=== PATIENT | male | born 1955 | race Caucasian/White ===

== ENCOUNTER 2017-10-23 10:00 | Outpatient (RCR) | payer OTHER, SELFPAY ==
--- NOTE | 2017-09-11 13:47 | HP.PTEVAL_ITS ---
Patient's Visit Information TOMMY JOSE is a 62 year old M referred to Physical Therapy by Colton BARDALES with a diagnosis of lumbago with sciatica. Date of Evaluation: 09/11/17 Physical Therapist: Marilynn Christie - Visit Plan Frequency: 3x /Week Duration: 4 Weeks Plan: Ask Dr Adams for Why Weight program after cardiac rehab. 3X/ week for 4 weeks to work on LB stretching, LE stretching including foam rolling, core stability and postural exercises with body mechanics working on extension principle. with HEP and modalitites PRN - Subjective Subjective: Pt reports that he has a lot of lower muscle back pain and the pain goes down butt cheek and nothing below the knee to the Quad (somedays R side and somedays L side). It usually happens upon exhertion. If he has to carry water from inside to outside he can barely get back into the house. Alot of time when driving or with sitting. He has N&T into the L foot but could be from a stroke. L paralyzed on L side due to strokein September of last year. He has DM with neuropathy. He had a light SD in September ... 2 stents (since February) , FM. He can sit for 30 min with constantly switches positions. No MRI. Dr Adams wanted to do PT and PRednizone....the prednizone is knocking the edge off (still on the prednzone and starting to step down with it. Only sleeps 4-6 hours of sleep because of pain. Pt thinks that his back pain is from non-use. He used to do a lot of things but the years events made me more sedentary. Uses a rail on the steps and has a hard time. Balance is terrible due to the nueropathy...he does lose his balance. He tries to walk on a lot of uneven ground. His activities throughout the day are mostly sitting down. 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 His heart and does not feel good. He takes the dogs out and walks.... he can walk but stops and goes,...gets spasms in back from walking. He wants o go through cardiac rehab. - Pain back pain Pain Intensity (Out of 10): 4 - Objective Gait: walks with decreaed L push off and decreased stacne time on the L. FGA: 17. LE MMT: R hip flex 4+/5 and L 4/5, L hip abd 4-/5 and R 4+/5, knee ext R 4/5 and L 4-/5, knee flex R 4/5 and L 4-/5. Pt struggles with toe raise on the L. Trunk AROM: flexion 75%, ext 10%, SB B 50%, Rot B 50%. -SLR. tight B HS, Piriformis and Quad B - Balance Scores Functional Gait Assessment Score: 17 % Disability: 43.3400 - Goals Goal 1:: I HEP Goal Time Frame: 4-6 Weeks Goal 2:: Decrease LBP to 1/10 with walking or carrying something Goal Time Frame: 4-6 Weeks Goal 3:: Be able to sit for 15-30 min with no back pain Goal Time Frame: 4-6 Weeks Goal 4:: Increase LE flexability of the HS, piriformis, gastroc and Quad Goal Time Frame: 4-6 Weeks Goal 5:: Increase FGA by 5 points to decrease fall risk (17 at time of the eval) . Goal Time Frame: 4-6 Weeks - Rehabilitation Potential Rehabilitation Potential: Good - Anticipated Interventions Patient/Client Instruction: Educate patient on: Condition, Plan of Care For the Purpose of:: To decrease pain, To increase ROM, To improve nutrient delivery to tissue, To improve muscle performance and motor function, To improve ability to perform ADL's, To increase tolerance to activity/condition/ position, To improve performance and independence with ADL's, To improve ability of physical actions for home/community/work/leisure, To improve gait and locomotor functions, To improve health of tissue, To decrease soft tissue restriction, To increase flexibility/ROM Therapeutic Exercise to Include: Strength training, Balance training, Flexibilty training, Gait and locomotor training, Passive ROM, Active ROM, Dynamic Lumbar Stabilization, Anitha Exercises For the Purpose of:: To decrease pain, To increase ROM, To improve nutrient delivery to tissue, To increase oxygenation perfusion, To improve muscle performance and motor function, To improve ability to perform ADL's, To increase tolerance to activity/condition/position, To improve health of tissue, To decrease soft tissue restriction, To increase flexibility/ROM Functional Training to Include: Gait training For the Purpose of:: To improve gait and locomotor functions, To improve safety with gait Manual Therapy Techniques to Include: Mobilization, Passive ROM, Soft tissue mobilization For the Purpose of:: To improve muscle performance and motor function, To increase tolerance to activity/condition/position, To improve health of tissue, To decrease soft tissue restriction, To increase flexibility/ROM Thank you for the opportunity to evaluate your patient. For Medicare and Medicare HMO plans, please review the plan of care and approve it. It will need to be FAXED BACK to us at [phone] for Medicare purposes. Please let me know if there are questions or concerns regarding this plan of care. Physician Signature: Date:
--- NOTE | 2017-10-23 11:02 | HP.PTEVAL_ITS ---
Patient's Visit Information TOMMY JOSE is a 62 year old M referred to Physical Therapy by Colton Adams with a diagnosis of lumbago with sciatica. Date of Evaluation: 09/11/17 Physical Therapist: Marilynn Christie - Visit Plan Frequency: 3x /Week Duration: 4 Weeks Plan: Pt to be seen in our clinic for 10 visits and continues to improve on pain and flexability unless he does too much walking for which the pain is lessoned with flexion or bending exercises. At this point the pt will continue to work at home with stretching and will resturn back to Dr Adams for follow up. At this point I feel a lot of the pts problems could be coming from possible stenosis. He loves to walk and he is unable to do that at this point. DC PT - Subjective Subjective: Pt reports that he has a lot of lower muscle back pain and the pain goes down butt cheek and nothing below the knee to the Quad (somedays R side and somedays L side). It usually happens upon exhertion. If he has to carry water from inside to outside he can barely get back into the house. Alot of time when driving or with sitting. He has N&T into the L foot but could be from a stroke. L paralyzed on L side due to strokein September of last year. He has DM with neuropathy. He had a light AK in September ... 2 stents (since February) , FM. He can sit for 30 min with constantly switches positions. No MRI. Dr Adams wanted to do PT and PRednizone....the prednizone is knocking the edge off (still on the prednzone and starting to step down with it. Only sleeps 4-6 hours of sleep because of pain. Pt thinks that his back pain is from non-use. He used to do a lot of things but the years events made me more sedentary. Uses a rail on the steps and has a hard time. Balance is terrible due to the nueropathy...he does lose his balance. He tries to walk on a lot of uneven ground. His activities throughout the day are mostly sitting down. 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 His heart and does not feel good. He takes the dogs out and walks.... he can walk but stops and goes,...gets spasms in back from walking. He wants o go through cardiac rehab. - Pain back pain Pain Intensity (Out of 10): 10 Comment: TIGHT Fibro pain Pain Intensity (Out of 10): 10 - Objective Gait: walks with decreaed L push off and decreased stacne time on the L. FGA: 17. LE MMT: R hip flex 4+/5 and L 4/5, L hip abd 4-/5 and R 4+/5, knee ext R 4/5 and L 4-/5, knee flex R 4/5 and L 4-/5. Pt struggles with toe raise on the L. Trunk AROM: flexion 75%, ext 10%, SB B 50%, Rot B 50%. -SLR. tight B HS, Piriformis and Quad B - Balance Scores Functional Gait Assessment Score: 22 % Disability: 26.6700 - Goals Goal 1:: I HEP Goal Time Frame: 4-6 Weeks Goal 2:: Decrease LBP to 1/10 with walking or carrying something Goal Time Frame: 4-6 Weeks Goal 3:: Be able to sit for 15-30 min with no back pain Goal Time Frame: 4-6 Weeks Goal 4:: Increase LE flexability of the HS, piriformis, gastroc and Quad Goal Time Frame: 4-6 Weeks Goal 5:: Increase FGA by 5 points to decrease fall risk (17 at time of the eval) . Goal Time Frame: 4-6 Weeks - Rehabilitation Potential Rehabilitation Potential: Good - Anticipated Interventions Patient/Client Instruction: Educate patient on: Condition, Plan of Care For the Purpose of:: To decrease pain, To increase ROM, To improve nutrient delivery to tissue, To improve muscle performance and motor function, To improve ability to perform ADL's, To increase tolerance to activity/condition/ position, To improve performance and independence with ADL's, To improve ability of physical actions for home/community/work/leisure, To improve gait and locomotor functions, To improve health of tissue, To decrease soft tissue restriction, To increase flexibility/ROM Therapeutic Exercise to Include: Strength training, Balance training, Flexibilty training, Gait and locomotor training, Passive ROM, Active ROM, Dynamic Lumbar Stabilization, Anitha Exercises For the Purpose of:: To decrease pain, To increase ROM, To improve nutrient delivery to tissue, To increase oxygenation perfusion, To improve muscle performance and motor function, To improve ability to perform ADL's, To increase tolerance to activity/condition/position, To improve health of tissue, To decrease soft tissue restriction, To increase flexibility/ROM Functional Training to Include: Gait training For the Purpose of:: To improve gait and locomotor functions, To improve safety with gait Manual Therapy Techniques to Include: Mobilization, Passive ROM, Soft tissue mobilization For the Purpose of:: To improve muscle performance and motor function, To increase tolerance to activity/condition/position, To improve health of tissue, To decrease soft tissue restriction, To increase flexibility/ROM Thank you for the opportunity to evaluate your patient. For Medicare and Medicare HMO plans, please review the plan of care and approve it. It will need to be FAXED BACK to us at [phone] for Medicare purposes. Please let me know if there are questions or concerns regarding this plan of care. Physician Signature: Date:
--- NOTE | 2017-12-08 11:01 | HP.PTDCNRP_ITS ---
HP - Discharge Summary (1) - Patient Information TOMMY JOSE was seen in my office for initial evaluation on 09/11/17. The following Plan of Care was established for this patient: Initial Frequency: 3x /Week Initial Duration: 4 Weeks - Anticipated Interventions Patient/Client Instruction: Educate patient on: Condition, Plan of Care For the Purpose of:: To decrease pain, To increase ROM, To improve nutrient delivery to tissue, To improve muscle performance and motor function, To improve ability to perform ADL's, To increase tolerance to activity/condition/ position, To improve performance and independence with ADL's, To improve ability of physical actions for home/community/work/leisure, To improve gait and locomotor functions, To improve health of tissue, To decrease soft tissue restriction, To increase flexibility/ROM Therapeutic Exercise to Include: Strength training, Balance training, Flexibilty training, Gait and locomotor training, Passive ROM, Active ROM, Dynamic Lumbar Stabilization, Anitha Exercises For the Purpose of:: To decrease pain, To increase ROM, To improve nutrient delivery to tissue, To increase oxygenation perfusion, To improve muscle performance and motor function, To improve ability to perform ADL's, To increase tolerance to activity/condition/position, To improve health of tissue, To decrease soft tissue restriction, To increase flexibility/ROM Functional Training to Include: Gait training For the Purpose of:: To improve gait and locomotor functions, To improve safety with gait Manual Therapy Techniques to Include: Mobilization, Passive ROM, Soft tissue mobilization For the Purpose of:: To improve muscle performance and motor function, To increase tolerance to activity/condition/position, To improve health of tissue, To decrease soft tissue restriction, To increase flexibility/ROM This patient was last seen in our office 10/23/17. Pertinent comments regarding their Physical therapy will appear below: DC PT as pt did not schedule additional PT visits. At this point I will be discontinuing this patient from physical therapy. I would be happy to see this patient again in the future if found appropriate by the physician. Thank you! Marilynn Christie
== END 2017-10-23 19:00 | disposition home or self-care (01) ==
LOC: PT 10:00
PROVIDERS: Family Provider Family Medicine; PCP Family Medicine; Visit Provider Family Medicine
DX: M54.40 Lumbago with sciatica, unspecified side (principal)
CPT/HCPCS: 97110; 97161; 97530

== ENCOUNTER → 2017-11-03 15:45 | Outpatient (CLI) | payer OTHER, SELFPAY ==
--- NOTE | 2017-11-03 15:52 | MRI_ITS ---
STUDY: MRI LUMBAR SPINE WITHOUT CONTRAST REASON FOR EXAM: Male, 62 years old. Low back pain and radiculopathy. TECHNIQUE: Standardized fat and water weighted pulse sequences were obtained in the sagittal and axial planes. COMPARISON: None FINDINGS: T12-L1: Normal endplates. Normal disc height, signal and morphology. Normal bilateral facet joints. Normal central canal and bilateral lateral recesses. Normal bilateral intervertebral neural foramina. Normal lumbar lordosis. There is no substantial scoliosis. Normal conus medullaris that terminates at the T12-L1 level. L1-2: There is mild annular disk bulge and osteophyte complex. There is mild degenerative arthropathy of the facet joints. Bilateral neuroforamina are narrowed without MR evidence for nerve impingement. There is no significant central canal stenosis. L2-3: There is annular disc bulge and osteophyte complex. There is mild degenerative arthropathy of the facet joints and mild thickening of ligamentum flavum. There is neural foraminal narrowing, greater on the left than the right with questionable impingement of the left L2 nerve root at the neural foramen. L3-4: There is a broad central disc protrusion. There is moderate degenerative arthropathy of facet joints. There is mild central acquired canal stenosis. Neural foramina are bilaterally narrowed without definite nerve impingement. There is loss of normal T2 hyperintensity within the disc consistent with degenerative disc disease. L4-5: There is mild annular disk bulge and osteophyte complex. There is a focal left foraminal disc protrusion with moderate left-sided neural foraminal narrowing. The right neural foramen is mildly narrowed. There is mild degenerative arthropathy of the facet joints. There is mild central canal stenosis. L5-S1: There is mild annular disk bulge and osteophyte complex. There is mild degenerative arthropathy of the facet joints. Bilateral neuroforamina are narrowed without MR evidence for nerve impingement. There is no significant central canal stenosis. Normal visualized sacral ala. Normal visualized paraspinous soft tissue structures. MRI/Spine Lumbar (Routine) IMPRESSION: Multilevel degenerative disc disease and degenerative arthropathy lumbar spine with acquired canal stenosis, neural foraminal narrowing and potential nerve impingement as described. Electronically Signed: Shanae dAams MD at 9:39 EDT , Service support ,
== END ==
PROVIDERS: Family Provider Family Medicine; PCP Family Medicine; Visit Provider Family Medicine
DX: M51.17 Intervertebral disc disorders with radiculopathy, lumbosacral region (principal); M48.061 Spinal stenosis, lumbar region without neurogenic claudication
CPT/HCPCS: 72148

== ENCOUNTER → 2019-04-18 18:15 | Outpatient (CLI) | payer OTHER, SELFPAY ==
[2017-09-10 11:14] VITALS: BMI 33.5
== END ==
PROVIDERS: Family Provider Family Medicine; PCP Family Medicine; Referring Provider Podiatrist; Visit Provider Podiatrist
DX: L03.031 Cellulitis of right toe (principal)
CPT/HCPCS: 87070; 87075; 87077; 87186; 87205

== ENCOUNTER → 2019-04-22 12:46 | Outpatient (CLI) | payer OTHER, SELFPAY ==
[2017-09-10 11:14] VITALS: BMI 33.5
--- NOTE | 2019-04-22 12:47 | ART_ITS ---
Reason For Study: PVD Procedure A bilateral lower extremity continuous wave Doppler with analog waveform analysis,segmental pressures,and ankle brachial indexes without exercise. Left Segmental Pressures Left brachial= 128mmHg. Left thigh = >254mmHg. Left calf = 119mmHg. Left posterior tibial artery = 126mmHg. Left dorsalis pedis artery = 130mmHg. Left digit = 84 mmHg. The left dorsalis pedis waveforms are triphasic. The left posterior tibial artery waveforms are biphasic. Right Segmental Pressures Right brachial= 134mmHg. Right posterior tibial artery = 127mmHg. Right dorsalis pedis artery = 155mmHg. Right digit = 94 mmHg. The right dorsalis pedis waveforms are triphasic. The right posterior tibial artery waveforms are biphasic. Indices The right ankle brachial index by the dorsalis pedis is 1.16. The right ankle brachial index by the posterior tibial artery is 0.95. The right digital-brachial index is 0.70. The left ankle brachial index by the dorsalis pedis is 0.97. The left ankle brachial index by the posterior tibial artery is 0.94. The left digital-brachial index is 0.63. Interpretation Summary Biphasic and triphasic Doppler waveforms are noted at ankle level bilaterally. Pulse-volume recordings are normal at all levels bilaterally, but for left digital level. Resting ankle-brachial indices are normal bilaterally. The right digital-brachial index is low-normal. The left digital- brachial index is mildly diminished. Arterial flow appears to be normal at ankle and digital level on the right, and at ankle level on the left. There appears to be mild, distal, small-vessel arterial occlusive disease at digital level on the left. Ordering Physician: Lupillo Alicea Referring Physician: Colton Sánchez Performed By: Sophia Matta RVT
== END ==
LOC: CVS 12:46
PROVIDERS: Family Provider Family Medicine; PCP Family Medicine; Referring Provider Podiatrist; Visit Provider Podiatrist
DX: I73.9 Peripheral vascular disease, unspecified (principal)
CPT/HCPCS: 93923

== ENCOUNTER → 2019-05-02 09:25 | Outpatient (CLI) | payer OTHER, SELFPAY ==
[2017-09-10 11:14] VITALS: BMI 33.5
[2019-05-02 10:28] LABS: Anion Gap 6 (5-15); BUN 15 mg/dL (7-18); BUN/Creat Ratio 12.9 RATIO (10-20); Chloride 102 mmol/L (98-107); Cholesterol 120 mg/dL (200); Creatinine, Serum 1.16 mg/dL (0.70-1.30); EST Glomerular Filtration Rate 68 mL/min (>60); Est Glom Filt Rate - Afr Amer 82 mL/min (>60); Glucose 320 mg/dL (74-106); High Density Lipoprotein 30 mg/dL; PSA,Total - Annual Screen 0.37 ng/mL (0.00-4.00); Potassium 4.2 mmol/L (3.5-5.1); Sodium Level 137 mmol/L (136-145); Triglycerides 166 mg/dL; Very Low Density Lipoprotein 33 mg/dL (5-40)
== END ==
PROVIDERS: Family Medicine; Family Provider Family Medicine; PCP Family Medicine; Referring Provider Family Medicine; Visit Provider Family Medicine
DX: E78.5 Hyperlipidemia, unspecified (principal); E11.8 Type 2 diabetes mellitus with unspecified complications; Z12.5 Encounter for screening for malignant neoplasm of prostate
CPT/HCPCS: 36415; 80048; 80061; 83036; 84153; G0103

== ENCOUNTER → 2019-11-20 10:14 | Outpatient (CLI) | payer OTHER, SELFPAY ==
[2017-09-10 11:14] VITALS: BMI 33.5
--- NOTE | 2019-11-20 10:21 | NM_ITS ---
CLINICAL: 64 year old male diabetic with history of postprandial abdominal pain and bloating. SEMI-SOLID PHASE 99m Tc SULFUR COLLOID GASTRIC EMPTYING STUDY COMPARISON: None available FINDINGS: The patient was administered 1.1 mCi of 99m Tc sulfur colloid mixed with oatmeal and consumed per os. Image acquisitions in the anterior-posterior projections for a total of 60 minutes. There is prompt visualization of the stomach. There is no gastroesophageal reflux identified. First order kinetics are maintained throughout the duration of the acquisitions. The T1/2 linear fit was calculated to be 64.53 minutes, (Normal: 12-56 minutes). NM/Gastric Emptying Study IMPRESSION: 1. ABNORMAL 99m Tc sulfur colloid semi-solid phase (oatmeal) gastric emptying imaging examination. A. There is delayed semi-solid phase gastric emptying compared to normal controls with maintained first order kinetics throughout all components of the examination. (Prudencio et al, J Nucl Med Tech 38: 186, 2010). Electronically Signed: Gabriel Albright DO at 19:04 EDT Tel , Service support ,
--- OUTSIDE RECORDS SUMMARY | 2020-04-21 09:46 | XMS RPT_ITS | CCD ---
:1955 External Reference #:[id number] Author Organization [facility] Care Team Providers Name Role Phone Aysha HUGGINS, Jj Unavailable Donovan ROSARIO, Yoav Unavailable Unavailable Yoav Man LPN Unavailable Unavailable Deana LOUIE, A Unavailable Unavailable Allergies Reported Allergen Reaction(s) Severity Date of Onset Location atorvastatin Muscle aches Critical, Critical 01-12-2011 - - [facility] 02-18-2013 - ([id number]) nabumetone GI upset Critical, Critical 01-12-2011 - - [facility] 02-18-2013 - (94998) NKDA Mild, Mild 05-28-2013 - [facility] ([id number]) Medications Medication Name Sig Date Prescriber Location Acetaminophen / VICODIN 5-500 MG TABS 01-12-2011 [facility] HYDROcodone One tablet by mouth Group (4 [id number]) three times daily HYDROCODONE-ACETAMINO PHEN [id number] Carlita Carmona VICODIN 5-500 MG TABS One tablet by 01-12-2011 - 06-24-2014 [facility] mouth three times daily (14223) HYDROCODONE-ACETAMINOPHEN [id number] Anuj Johnston MD VICODIN 5-500 MG TABS One tablet by 01-12-2011 [facility] mouth three times daily (27230) HYDROCODONE-ACETAMINOPHEN [id number] Carlita Carmona VICODIN 5-500 MG TABS One tablet by 01-12-2011 - 06-24-2014 [facility] mouth three times daily (23314) HYDROCODONE-ACETAMINOPHEN [id number] Anuj Johnston MD VICODIN 5-500 MG TABS One tablet by 01-12-2011 [facility] mouth three times daily (22294) HYDROCODONE-ACETAMINOPHEN [id number] Carlita Carmona VICODIN 5-500 MG TABS One tablet by 01-12-2011 - 06-24-2014 [facility] mouth three times daily (47618) HYDROCODONE-ACETAMINOPHEN [id number] Anuj Johnston MD VICODIN 5-500 MG TABS One tablet by 01-12-2011 [facility] mouth three times daily (86077) HYDROCODONE-ACETAMINOPHEN [id number] Carlita Carmona VICODIN 5-500 MG TABS One tablet by 01-12-2011 - 06-24-2014 [facility] mouth three times daily (05105) HYDROCODONE-ACETAMINOPHEN [id number] Anuj Johnston MD VICODIN 5-500 MG TABS One tablet by 01-12-2011 - 06-24-2014 [facility] mouth three times daily (63340) HYDROCODONE-ACETAMINOPHEN [id number] Anuj Johnston MD VICODIN 5-500 MG TABS One tablet by 01-12-2011 [facility] mouth three times daily (15936) HYDROCODONE-ACETAMINOPHEN [id number] Carlita Carmona Acetaminophen / PERCOCET 5-325 MG TABS One tablet 03-20-2017 [facility] oxyCODONE by mouth daily as needed Leila up (59198) OXYCODONE-ACETAMINOPHEN [id number] Huong Olmstead NP PERCOCET 5-325 MG TABS One tablet by 03-20-2017 [facility] mouth daily as needed (13671) OXYCODONE-ACETAMINOPHEN 58302251875 Huong Olmstead NP PERCOCET 5-325 MG TABS One tablet by 03-20-2017 [facility] mouth daily as needed (03203) OXYCODONE-ACETAMINOPHEN [id number] Huong Olmstead NP PERCOCET 5-325 MG TABS As needed 06-24-2014 - 06-25-2015 [facility] OXYCODONE-ACETAMINOPHEN (74707) [id number] Anuj Johnston MD PERCOCET 5-325 MG TABS As needed 06-24-2014 [facility] OXYCODONE-ACETAMINOPHEN (29757) [id number] Anuj Johnston MD PERCOCET 5-325 MG TABS As needed 06-24-2014 [facility] OXYCODONE-ACETAMINOPHEN (27448) [id number] [facility] Ca PERCOCET 5-325 MG TABS As needed 06-24-2014 - 06-25-2015 [facility] (38568) OXYCODONE-ACETAMINOPHEN [id number] Anuj Johnston MD PERCOCET 5-325 MG TABS As needed 06-24-2014 [facility] OXYCODONE-ACETAMINOPHEN (36055) [id number] Anuj Johnston MD PERCOCET 5-325 MG TABS As needed 06-24-2014 [facility] OXYCODONE-ACETAMINOPHEN (23590) [id number] [facility] PERCOCET 5-325 MG TABS As needed 06-24-2014 - 06-25-2015 [facility] (83911) OXYCODONE-ACETAMINOPHEN [id number] Anuj Johnston MD Amoxicillin / AUGMENTIN 875-125 MG 02-18-2013 [facility] Clavulanate TABS one tablet twice 03-20-2013 [facility] (90655) daily AMOXICILLIN-POT CLAVULANATE 39405876632 Lashell J Signs AUGMENTIN 875-125 MG TABS 02-18-2013 [facility] one tablet twice daily 03-20-2013 Group (44 691) AMOXICILLIN-POT CLAVULANATE [id number] Lashell J Signs AUGMENTIN 875-125 MG TABS 02-18-2013 - Jose S Izabela [facility] one tablet twice daily 03-20-2013 Group (44 691) AMOXICILLIN-POT CLAVULANATE 26321832961 Lashell J Signs AUGMENTIN 875-125 MG TABS 02-12-2013 - Lashell J Signs [facility] Two tablets by mouth daily 02-18-2013 Group (76899) AMOXICILLIN-POT CLAVULANATE [id number] Lashell J Signs AUGMENTIN 875-125 MG TABS 02-12-2013 - Lashell J Signs [facility] Two tablets by mouth daily 02-18-2013 Group (80994) AMOXICILLIN-POT CLAVULANATE 64586935914 Lashell J Signs AUGMENTIN 875-125 MG TABS 02-12-2013 - Lashell J Signs [facility] Two tablets by mouth daily 02-18-2013 Group (59426) AMOXICILLIN-POT CLAVULANATE 00309239106 Lashell J Signs Aspirin ASPIRIN EC 81 MG TBEC One 02-06-2017 [facility] (12258) tablet by mouth daily ASPIRIN 09954872277 Nany Leblanc RN atorvastatin LIPITOR 20 MG TABS One tablet 01-12-2011 [facility] (10968) by mouth daily ATORVASTATIN CALCIUM [id number] Carlita Carmona LIPITOR 40 MG TABS One tablet by mouth 01-12-2011 [facility] (63071) daily every evening ATORVASTATIN CALCIUM 33776252173 [facility] ATORVASTATIN CALCIUM 80 MG TABS One tablet 01-12-2011 [facility] (73473) by mouth daily ATORVASTATIN CALCIUM 84835201571 Huong Olmstead NP carvedilol CARVEDILOL 6.25 MG TABS One 08-12-2016 [facility] (13384) tablet by mouth twice daily CARVEDILOL 05969052231 Anuj Johnston MD clopidogrel PLAVIX 75 MG TABS One tablet 02-06-2017 [facility] (21652) by mouth daily CLOPIDOGREL BISULFATE 75376628931 Nany Leblanc RN DULoxetine CYMBALTA 20 MG CPEP One tablet 05-28-2013 [facility] (59930) by mouth daily DULOXETINE HCL 18841703335 [address] Roby CYMBALTA 60 MG CPEP One 05-28-2013 - 12-25-2015 [facility] (52644) tablet by mouth daily DULOXETINE HCL 02539318249 Anuj Johnston MD CYMBALTA 60 MG CPEP One 01-12-2011 - 01-31-2013 [facility] (52447) tablet by mouth twice daily DULOXETINE HCL 06475756523 Yuko Graves PA-C gabapentin NEURONTIN 600 MG TABS One tablet 01-12-2011 [facility] (50576) by mouth three times daily GABAPENTIN [id number] Yuko Graves PA-C NEURONTIN 600 MG TABS One tablet by mouth 01-12-2011 [facility] (75913) four times daily as needed GABAPENTIN 66587574664 Carlita Carmona hydroCHLOROthiazide HYDROCHLOROTHIAZIDE 25 MG 01-12-2011 - [facility] TABS One tablet by mouth 01-31-2013 [facility] (93633) daily HYDROCHLOROTHIAZIDE 19836761043 Yuko Graves PA-C Insulin Glargine BASAGLAR KWIKPEN 100 UNIT/ML 03-20-2017 [facility] SOPN 70 units at bed time Gr oup (91082) INSULIN GLARGINE 35886874762 Huong Olmstead NP BASAGLAR KWIKPEN 100 UNIT/ML SOPN 70 units 03-20-2017 [facility] (03059) at bed time INSULIN GLARGINE 17102783949 Huong Olmstead NP BASAGLAR KWIKPEN 100 UNIT/ML SOPN 70 units 03-20-2017 [facility] (58062) at bed time INSULIN GLARGINE 49211414764 Huong Olmstead NP LANTUS 100 UNIT/ML SOLN Take as directed 01-12-2011 [facility] (16009) INSULIN GLARGINE 86123249258 [facility] Ayalaorelscottie LANTUS 100 UNIT/ML SOLN Take as directed 01-12-2011 [facility] (85831) INSULIN GLARGINE 79073953692 [facility] Ayalasujatha LANTUS 100 UNIT/ML SOLN Take as directed 01-12-2011 [facility] (93520) INSULIN GLARGINE 41405387675 Carlita Hernandez Carmona LANTUS 100 UNIT/ML SOLN Take as directed 01-12-2011 [facility] (32981) INSULIN GLARGINE 21610456547 [facility] Ayalaorelli LANTUS 100 UNIT/ML SOLN Take as directed 01-12-2011 [facility] (73043) INSULIN GLARGINE 93978466645 Carlita Carmona LANTUS 100 UNIT/ML SOLN Take as directed 01-12-2011 [facility] (62890) INSULIN GLARGINE 71471889136 Mary Roby insulin, aspart, human NOVOLOG FLEXPEN 100 01-12-2011 [facility] UNIT/ML SOPN 20 units (00914 ) three times a day with meals INSULIN ASPART 37553451042 Huong Olmstead NP NOVOLOG FLEXPEN 100 UNIT/ML SOPN 20 units 01-12-2011 [facility] (91310) three times a day with meals INSULIN ASPART 94781859232 Huong Olmstead NP NOVOLOG FLEXPEN 100 UNIT/ML SOPN 20 units 01-12-2011 [facility] (12600) three times a day with meals INSULIN ASPART 45141929160 Huong Olmstead NP Lidocaine LIDODERM 5 % PTCH remove & reapply 02-06-2017 [facility] (23905) daily LIDOCAINE 47756864084 Nany Leblanc RN LIDODERM 5 % PTCH remove & reapply daily 02-06-2017 [facility] (81018) LIDOCAINE 94060909715 Nanyhenrik Leblanc RN LIDODERM 5 % PTCH remove & reapply daily 02-06-2017 [facility] (19558) LIDOCAINE 74302483176 Nany Leblanc RN Lisinopril LISINOPRIL 2.5 MG TABS One tablet 01-12-2011 [facility] (98164) by mouth daily LISINOPRIL 91489327382 Nany Leblanc RN LISINOPRIL 5 MG TABS One tablet by mouth 01-12-2011 [facility] (09475) daily LISINOPRIL 53208879033 Huong Olmstead NP [place] Carbonate LITHIUM CARBONATE 01-12-2011 - [facility] 300 MG TABS One 01-31-2013 Group (88882 ) tablet by mouth four times daily LITHIUM CARBONATE 78765276176 Yuko Graves PA-C Metoprolol TOPROL XL 50 MG 08-12-2016 An[facility] De La [facility] [id number] One tablet MD [facility] ( 28215) by mouth daily METOPROLOL SUCCINATE 61311377117 Anuj Johnston MD METOPROLOL TARTRATE 25 MG TABS 08-12-2016 [facility] 1/2 tablet by mouth twice (60201 ) daily METOPROLOL TARTRATE 97994558120 Nany Leblanc RN TOPROL XL 50 MG [id number] One 08-12-2016 Anuj Johnston MD [facility] tablet by mouth daily (31062) METOPROLOL SUCCINATE 23068372063 Anuj Johnston MD TOPROL XL 50 MG [id number] One 08-12-2016 Anuj Johnston MD [facility] tablet by mouth daily (81281) METOPROLOL SUCCINATE 12675165054 Anuj Johnston MD pioglitazone ACTOS 30 MG TABS One 01-12-2011 - [facility] tablet by mouth daily 02-06-2017 Group (04627) PIOGLITAZONE HCL 50381359689 Nany Leblanc RN Ramipril ALTACE 2.5 MG CAPS One 01-12-[address] [facility] tablet by mouth daily Group (64235) RAMIPRIL 65651098005 Anuj Johnston MD ALTACE 5 MG CAPS One tablet by 01-12-2011 Anuj Johnston MD [facility] mouth daily (48151) RAMIPRIL 86308554141 Anuj Johnston MD ALTACE 2.5 MG CAPS One tablet 01-12-2011 [facility] by mouth daily (71874 ) RAMIPRIL 52569536470 Anuj Johnston MD ALTACE 5 MG CAPS One tablet by 01-12-2011 Anuj Johnston MD [facility] mouth daily (30267) RAMIPRIL 39324385963 Anuj Johnston MD Regular Insulin, Human NOVOLIN R 100 UNIT/ML SOLN 01-12-2011 [facility] Take as directed (67534) INSULIN REGULAR HUMAN 87090795110 Mary Chicorelli NOVOLIN R 100 UNIT/ML SOLN Take as directed 01-12-2011 [facility] (47980) INSULIN REGULAR HUMAN 33520004894 Mary Chicorelli NOVOLIN R 100 UNIT/ML SOLN Take as directed 01-12-2011 [facility] (81835) INSULIN REGULAR HUMAN 37470739122 Carlita Hernandez Carmona NOVOLIN R 100 UNIT/ML SOLN Take as directed 01-12-2011 [facility] (94359) INSULIN REGULAR HUMAN 65919555721 Mary Chicorelli NOVOLIN R 100 UNIT/ML SOLN Take as directed 01-12-2011 [facility] (23918) INSULIN REGULAR HUMAN 82874320266 Carlita Carmona NOVOLIN R 100 UNIT/ML SOLN Take as directed 01-12-2011 [facility] (02619) INSULIN REGULAR HUMAN 99180488719 [facility] Roby Sertraline ZOLOFT 50 MG TABS One 01-12-2011 - 01-31-2013 [facility] tablet by mouth daily (75651 ) SERTRALINE HCL 07651227448 Carlita Carmona sildenafil VIAGRA 50 MG TABS Take as 01-12-2011 - 02-18-2013 [facility] Directed (30956) SILDENAFIL CITRATE 96348648326 Lashell Gallo MD topiramate TOPAMAX 25 MG TABS One 01-11-2013 - 12-20-2013 [facility] tablet by mouth daily (64208 ) TOPIRAMATE 89007727653 Jennifer Estrada RN venlafaxine VENLAFAXINE HCL ER 150 MG 05-28-2013 [facility] [id number] One tablet by (446 91) mouth daily VENLAFAXINE HCL 60193206539 Anuj Johnston MD VENLAFAXINE HCL 75 MG TABS Two 01-31-2013 - 02-18-2013 [facility] (51634) tablets by mouth twice daily VENLAFAXINE HCL 02908507071 Lashell Gallo MD Problems Active Problems Category Problem Name Status Date Location Acute cerebrovascular Cerebrovascular Active 02-06-2017 - [facility] disease accident (17600) Aortic; peripheral; 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, without (78988) aneurysms rupture Complication of device; Atherosclerosis of Active 01-12-2011 - [facility] implant or graft coronary artery bypass ( 29900) graft(s) without angina pectoris Coronary Preinfarction syndrome Active 01-12-2011 - [facility] and - 02-06-2017 [facility] other heart disease - (36535) Diabetes mellitus with Type 2 diabetes Active 01-12-2011 - [facility] complications mellitus with other (41067) diabetic ophthalmic complication Disorders of lipid Hyperlipidemia Active 01-12-2011 - [facility] metabolism (25388) Essential hypertension Hypertensive disorder Active - [facility] (23711) Heart valve disorders H/O: artificial heart Active 02-06-2017 - [facility] valve (27476) Infective arthritis and Acute osteomyelitis of Active - [facility] osteomyelitis (except lower leg (45553 ) that caused by tuberculosis or sexually transmitted disease) Mood disorders Depressive disorder Active 03-20-2017 - [facility] (47492) Other diseases of veins Chronic venous Active 03-19-2013 - [facility] and lymphatics hypertension (46262) (idiopathic) without complications of unspecified lower extremity Other nutritional; Overweight Active 04-25-2017 - [facility]; and Disease (4469 1) metabolic disorders Other nutritional; Body mass index (BMI) Active 05-28-2013 - [facility] endocrine; and 35.0-35.9, adult (83700) metabolic disorders Other nutritional; Body mass index (BMI) Active 05-28-2013 - [facility] endocrine; and 34.0-34.9, adult - 06-23-2015 (61515) metabolic disorders - Other nutritional; High density Active 05-23-2013 - [facility]; and lipoprotein deficiency (44 691) metabolic disorders Other nutritional; Body mass index (BMI) Active 05-23-2013 - [facility] endocrine; and 33.0-33.9, adult - 06-23-2015 (81051) metabolic disorders - Peripheral and visceral Peripheral vascular Active 03-19-2013 - [facility] atherosclerosis disease (20588) Unclassified Aftercare Active 07-13-2015 - [facility] (39857) Unclassified Long-term drug therapy Active 01-12-2011 - [facility] (78468) Unclassified Saphenous vein graft Active 01-12-2011 - [facility] replacement of three (47706) coronary arteries Unclassified Type 1 diabetes Active 01-12-2011 - [facility] mellitus with diabetic Endoc rinology peripheral angiopathy (82566 ) without gangrene Past or Other Problems Category Problem Name Status Date Location Other aftercare Other half-way Completed 01-12-2011 - [facility] (current) drug therapy (4469 1) Other connective Tendinitis of extensor Completed 05-07-2015 - [facility] tissue disease tendon of hand (49638) Other connective Radial styloid Completed 05-07-2015 - [facility] tissue disease tenosynovitis (40805) Other connective Lateral epicondylitis, Com[facility] 05-07-2015 [facility] tissue disease left elbow (14548) Other non-traumatic Pain in wrist Completed 05-07-2015 - [facility] joint disorders (60247) Other non-traumatic Pain in elbow Completed 05-07-2015 - [facility] joint disorders (97587) Unclassified Preoperative Completed 06-25-2015 - [facility] cardiovascular - 02-06-2017 (42897) examination - Results Result Name Value Range Unit Interpretation Flag Date Location obsolete on 2019-07 OBSOLETE Refill (DALLINN) Normal 07-12-2019 [facility] TOMMY NGUYEN ([id number]) 1955 M [facility] Time Provider Department ([id number]) 07/12/19 KIRSTEN CUELLAR During your visit today, we recorded the following informati on about you: Allergies As of Date: 07/12/2019 (No Known Allergies) Date Reviewed: 04/29/2019 Reviewed by: Eriberto (Rn) LIBAN Yoo - Fully Assessed Reason for Visit: Refill Request [94] Prescriptions as of 07/12/2019 Sig: LISINOPRIL 5 MG TABLET Take 1 tablet by mouth once d* METOPROLOL TARTRATE 25 MG TAB* q 12 HR. AMOXICILLIN 500 MG-POTASSIUM * INSULIN GLARGINE (U-100) 100 * Inject 80 Units subcutaneousl * FEXOFENADINE 180 MG TABLET Take 180 mg by mouth once blake* ATORVASTATIN 80 MG TABLET Take 1 tablet by mouth once d* NITROGLYCERIN 0.4 MG SUBLINGU* Dissolve 1 tablet under the t * INSULIN ASPART (U-100) 100 UN* Inject 20 Units subcutaneousl * OXYCODONE-ACETAMINOPHEN 5 MG-* Take 1 tablet by mouth every * LIDOCAINE 5 % TOPICAL PATCH Apply 1 Patch as directed onc* GABAPENTIN 600 MG TABLET Take 600 mg by mouth three ti* Problem List As Of Date 07/12/2019 Noted Resolved Diarrhea [R19.7] Stroke (cerebrum) (HCC) [I63.9] 09/16/2016 More... ICAO (internal carotid artery occlusion) [I65.2*09/16/2016 Type 2 diabetes mellitus with diabetic polyneur*09/17/2016 More... Cerebral infarction due to stenosis of right ca*09/17/2016 Left carotid artery occlusion [I65.22] 09/17/2016 Essential hypertension [I10] 09/17/2016 More... Mixed hyperlipidemia [E78.2] 09/17/2016 More... AAA (abdominal aortic aneurysm) without rupture*10/06/2016 More... Inferolateral NSTEMI (non-ST elevated myocardia*11/10/2016 0 03/01/2017 More... Left leg weakness [R29.898] 01/04/2017 Coronary artery disease involving coronary bypa*02/26/2017 More... IBS (irritable bowel syndrome) [K58.9] 02/26/2017 Fibromyalgia [M79.7] 02/26/2017 SUMMARY 02/26/2017 More... Non-pressure chronic ulcer of right ankle, limi*02/26/2017 More... Suspected obstructive sleep apnea syndrome [G47*02/26/2017 More... Postural dizziness with presyncope [R42, R55] 04/12/2018 More... Obesity, Class I, BMI 30-34.9 [E66.9] 04/12/2018 More... Encounter Status:Closed by VIR[place]IA CARDONA on 07/19/19 obsolete on 2019-06 OBSOLETE Refill (CARIMN) Normal 06-27-2019 [facility] TOMMY NGUYEN ([id number]) 1955 [facility] Date Time Provider Department ([id number]) 06/27/19 KIRSTEN CUELLAR During your visit today, we recorded the following informati on about you: Virginia Bond ADM 06/28/2019 4:29 PM Signed Call from patient requesting refill. Pending Prescriptions Disp Refills LISINOPRIL 5 MG TABLET 90 tablet 3 Sig: Take 1 tablet by mouth once daily. ARTEMIO: No Patient last seen 06/26/18 Virginia Bond ADM Allergies As of Date: 06/27/2019 (No Known Allergies) Date Reviewed: 04/29/2019 Reviewed by: Eriberto (Rn) LIBAN Yoo - Fully Assessed Reason for Visit: Refill Request [94] Order(s):lisinopril (ZESTRIL, PRINIVIL) 5 mg tabletTake 1 tablet by mouth once daily.Disp: 90 tabletRfl: 3 Prescriptions as of 06/27/2019 Sig: LISINOPRIL 5 MG TABLET Take 1 tablet by mouth once d* METOPROLOL TARTRATE 25 MG TAB* q 12 HR. AMOXICILLIN 500 MG-POTASSIUM * INSULIN GLARGINE (U-100) 100 * Inject 80 Units subcutaneousl * FEXOFENADINE 180 MG TABLET Take 180 mg by mouth once blake* ATORVASTATIN 80 MG TABLET Take 1 tablet by mouth once d* NITROGLYCERIN 0.4 MG SUBLINGU* Dissolve 1 tablet under the t * INSULIN ASPART (U-100) 100 UN* Inject 20 Units subcutaneousl * OXYCODONE-ACETAMINOPHEN 5 MG-* Take 1 tablet by mouth every * LIDOCAINE 5 % TOPICAL PATCH Apply 1 Patch as directed onc* GABAPENTIN 600 MG TABLET Take 600 mg by mouth three ti* Problem List As Of Date 06/27/2019 Noted Resolved Diarrhea [R19.7] Stroke (cerebrum) (HCC) [I63.9] 09/16/2016 More... ICAO (internal carotid artery occlusion) [I65.2*09/16/2016 Type 2 diabetes mellitus with diabetic polyneur*09/17/2016 More... Cerebral infarction due to stenosis of right ca*09/17/2016 Left carotid artery occlusion [I65.22] 09/17/2016 Essential hypertension [I10] 09/17/2016 More... Mixed hyperlipidemia [E78.2] 09/17/2016 More... AAA (abdominal aortic aneurysm) without rupture*10/06/2016 More... Inferolateral NSTEMI (non-ST elevated myocardia*11/10/2016 0 03/01/2017 More... Left leg weakness [R29.898] 01/04/2017 Coronary artery disease involving coronary bypa*02/26/2017 More... IBS (irritable bowel syndrome) [K58.9] 02/26/2017 Fibromyalgia [M79.7] 02/26/2017 SUMMARY 02/26/2017 More... Non-pressure chronic ulcer of right ankle, limi*02/26/2017 More... Suspected obstructive sleep apnea syndrome [G47*02/26/2017 More... Postural dizziness with presyncope [R42, R55] 04/12/2018 More... Obesity, Class I, BMI 30-34.9 [E66.9] 04/12/2018 More... Prescriptions ordered this encounter Disp Refills Start End LISINOPRIL 5 MG TABLET 90 t* 3 07/15/2019 07/14/2020 Route: ORAL Sig: Take 1 tablet by mouth once daily. Medications Discontinued During This Encounter lisinopril (ZESTRIL, PRINIVIL) 5 mg * 90 t* 2 04/10/20182019 Route: ORAL Sig: Take 1 tablet by mouth once daily. Disc: Reason for discontinue is not on file. Encounter Status:Closed by KIRSTEN CUELLAR MD on 07/15/19 history physical on 2019-04-29 HISTORY PHYSICAL HNO ID: [id number] Normal 04-10 [facility]: ? ([id number]) Author Type: Physician Type: HANDP Filed: 04/29/2019 4:38 PM Note Text: [facility] Outpatient Visit Consultation is requested by: Dana Mnoique APRN.[employer]ING MACHINIST [id number] [facility] [address] PCP: Colton Adams MD ([facility]) [address] [place] [id number] CEREBROVASCULAR HISTORY Chief complaint: Carotid, vertebral and subclavian stenoses History of present illness: Tommy Nguyen is a 64 year old male with vascular risk factors, who presents for evaluation of multip le craniocervical vascular stenoses. PMH significant for HTN, HPL, DM, CAD s/p CABG 15 years ago, known AAA, TIAs 2012, syncopal episode 2014. He developed?L leg heavine ss and paresthesias of L LE and L hand a few days prior to seeing m edical attention in 2016. He did have previous episodic lightheaded ness, dizziness, vision changes, HAs.?CTH NAP. Unable to tolerate MRI. CTA showed L ICA occlusion with reconstitution through L PComm a nd >?75% stenosis R ICA as well as >?70% b/l vertebral stenosis. [facility] sferred to [facility] with NIHSS 0 upon admission. MRI showed acute R MCA infarct? and remote L parietal infarct. ?TTE showed no abnormal wall motion or atr ial enlargement with normal valves, no PFO. He underwent cerebra l angiogram which confirmed high grade?R ICA stenosis 95%, L ICA occlusi on with reconstitution, mod-severe L Vertebral origin stenosis.?He w as loaded with plavix and aspirin. He underwent successful angioplasty/sten ting of the right internal carotid artery. ?Prior to admission he was no t adherent to his aspirin, statin, BP meds but was taking his insulin. He was discharged on DAPT, lipitor 40mg (LDL 93), BP meds, insulin adjusted pe r endo for uncontrolled DM - A1c 10.1. Later on, he received multiple cardiac stents, and he remain s on dual antiplatelet therapy. About a month ago, he had an episode w hile walking around at a fair in hot weather that he got dizzy with troub le getting his thoughts. He also took an allergy pill and Percocet before t his event. His symptoms resolved shoulder thereafter. No recurrence ever si nce. He continues to have chronic dizziness. No other stroke symptom s. No recurrence since last episode. Blood pressure and cholestero l are well controlled. Diabetes he still working on. Repeat carotid ult rasound raised suspicion of new left subclavian stenosis. Patient's carotid stenting was done by Dr. Angel Luis Quintanilla, and patient was referred back to endovascular clinic for evaluation. PAST MEDICAL HISTORY Diagnosis Date - Aortic aneurysm (HCC) - Carotid artery stenosis - Coronary artery disease - Depression - Diabetes (HCC) - Diarrhea - Fibromyalgia - Heart disease - High cholesterol - Hypertension - Obesity, Class I, BMI 30-34.9 04/12/2018 - Stroke (HCC) - Suspected obstructive sleep apnea syndrome 02/26/2017 PAST SURGICAL HISTORY Procedure Laterality Date - ANKLE ARTHROSCOPY/SURGERY Left - APPENDECTOMY - COLONOSCOP W/ OR W/O BRSH SPEC 05/30/13 Colonoscopy - HEART SURGERY HX Triple bypas - [place] ANESTH,KNEE JOINT; NOS Right - TONSILLECTOMY HX FAMILY HISTORY Problem Relation Age of Onset - other (lung cancer) Father - Diabetes Mother - other (pancreatic cancer) Mother Social History Socioeconomic History Marital status: Spouse name: Not on file Number of children: 3 Years of education: 13+ Highest education level: Not on file Occupational History Not on file Social Needs Financial resource strain: Not on file Food insecurity: Worry: Not on file Inability: Not on file Transportation needs: Medical: Not on file Non-medical: Not on file Tobacco Use Smoking status: Never Smoker Smokeless tobacco: Never Used Substance and Sexual Activity Alcohol use: No Drug use: No Sexual activity: Yes Partners: Female Lifestyle Physical activity: Days per week: Not on file Minutes per session: Not on file Stress: Not on file Relationships Social connections: Talks on phone: Not on file Gets together: Not on file Attends bahai service: Not on file Active member of club or organization: Not on file Attends meetings of clubs or organizations: Not on file Relationship status: Not on file Intimate partner violence: Fear of current or ex partner: Not on file Emotionally abused: Not on file Physically abused: Not on file Forced sexual activity: Not on file Other Topics Concerns: Not on file Social History Narrative Not on file MEDICATIONS Current Outpatient Medications: metoprolol tartrate, short acting, (LOPRESSOR) 25 mg tablet q 12 HR. amoxicillin-clavulanic acid (AUGMENTIN) 500-125 mg per table t aspirin 81 mg chewable tablet Take 1 tablet by mouth once da bautista. clopidogrel (PLAVIX) 75 mg tablet Take 1 tablet by mouth onc e daily. insulin glargine (LANTUS SOLOSTAR U-100 INSULIN) 100 unit/mL (3 mL) inpn Inject 80 Units subcutaneously daily at bedtime. lisinopril (ZESTRIL, PRINIVIL) 5 mg tablet Take 1 tablet by mouth once daily. fexofenadine (JESSICA) 180 mg tablet Take 180 mg by mouth on ce daily as needed. atorvastatin (LIPITOR) 80 mg tablet Take 1 tablet by mouth o nce daily. nitroglycerin sublingual (NITROQUICK) 0.4 mg SL tablet Disso lve 1 tablet under the tongue as needed for Chest Pain. insulin aspart (NOVOLOG FLEXPEN) 100 unit/mL inpn Inject 20 Units subcutaneously three times daily with meals. oxyCODONE-acetaminophen (PERCOCET) 5-325 mg tablet Take 1 ta blet by mouth every 8 hours as needed for Pain. lidocaine (LIDODERM) 5 % Apply 1 Patch as directed once star y as needed (back pain). gabapentin 600 mg tablet Take 600 mg by mouth three times da bautista. No current facility-administered medications for this visit. REVIEW OF SYSTEMS ALLERGIES No Known Allergies Review of Systems Constitutional Positive for Fatigue Eyes: Negative Hent: Negative Cardiovascular: Negative Respiratory: Negative GI: Negative : Negative Endocrine: Negative Musculoskeletal Positive for Muscle Pain (from fibromyalgia) Integumentary: Negative Heme/Lymph: Negative Allergy/Immunologic: Negative Neurologic Positive for Weakness (left leg weakness) Psychiatric: Negative Patient's Review of Systems has been reviewed with the patie nt and updated as appropriate. PHYSICAL EXAMINATION BP 125/66 (BP Site: Left Arm, BP Position: Sitting, BP Cuff Size: Regular Adult) Pulse 86 Ht 190.5 cm (6' 3) Wt 120.7 kg (266 l b) SpO2 97% BMI 33.25 kg/m? General: Not in acute distress, pleasant male, well-develope d, well-nourished Head: atraumatic, normocephalic Eyes: No scleral icterus, no conjunctival injection Neck: supple, no JVD Cardiovascular: Normal S1/S2, no murmurs, RRR Lungs: Clear to auscultation bilaterally Abdomen: Soft, nondistended, nontender Extremities: No edema, clubbing or cyanosis noted. Skin: No significant bruising or rash Neurological: Mental status: Alert, awake and oriented x3. Speech, languag e, attention span, memory and fund of knowledge are intact. Cranial nerves: Pupils equal, reactive. EOMI. Visual rossi full. Normal facial sensation. No facial asymmetry. Uvula midline, symmet raji palatal elevation. Symmetric shoulder shrug. Tongue midline. Motor: Normal bulk, tone and strength bilaterally. No pronat or drift. Sensory: Normal to soft touch, pinprick, temperature bilater ally. Coordination: No dysmetria or ataxia Reflexes: Symmetric. Gait: Walks without assistance. LABS Cholesterol: Cholesterol, Total (mg/dL) Date Value 04/02/2019 107 LDL Cholesterol (mg/dL) Date Value 04/02/2019 54 HDL Cholesterol (mg/dL) Date Value 04/02/2019 33 Triglyceride (mg/dL) Date Value 04/02/2019 98 Diabetes: Hemoglobin A1C (%) Date Value 02/26/2017 9.2 IMAGING Carotid ultrasound March 2019: The right ICA stent was v isualized and is patent. Plaque as described above. ?No hemodynamically si gnificant flow velocities identified and stenosis estimate in the [facility] t ICA is 1-29% by NASCET criteria. ?Color and spectral Doppler evaluation a gain demonstrate occlusion of the left ICA. ?There are elevated v elocities in the bilateral ECAs, consistent with stenosis. The right vert ebral artery exhibits antegrade flow. ?The velocities in the left vertebr al artery origin have increased when compared to the prior exam, with a peak systolic velocity of 611 cm/s consistent with stenosis. The right subclavian artery waveforms are unremarkable. ?There are renzo vated velocities in the left subclavian artery with a peak systoli c velocity of 636 cm/s, and is consistent with a 50-99% stenosis. The peak systolic velocities in the right ICA stent are as follows in centimet ers per second: Proximal to stents 76, proximal stent 118, mid stent 116, distal stent 87, distal to stent 81. Carotid ultrasound April 2018: The right carotid stent was visualized and is patent. ?The peak systolic velocities, end diastolic velocities, and ICA/CCA ratio in the right internal carotid artery are c onsistent with 1-29% stenosis by NASCET criteria. ?Color Doppler and spectr al Doppler evaluation again demonstrate occlusion of the left internal carotid artery. ?There are high resistance spectral Doppler waveform s in the left common carotid artery consistent with the patient's distal o cclusion, otherwise the common carotid arteries are unremarkable. ?The re are elevated velocities in the bilateral external carotid arteri es consistent with stenosis. ?The vertebral arteries are patent and demons trate antegrade flow bilaterally. ??The right vertebral artery jose luis ocities are within normal limits. ?The velocities in the left vertebral artery origin are again elevated at 552 cm/s consistent with stenosis. ?Th e spectral Doppler waveforms in the remainder of the left vertebral art flora are dampened in appearance. ?The right subclavian artery is unre markable. ?There are elevated velocities in the left subclavian artery at 455 cm/s consistent with 50-99% stenosis. ?The peak systolic velociti es throughout the right carotid artery stent are as follows in centimeters per second: Proximal to stent 71, proximal stent 88, mid stent 119, dist al stent 92, distal to stent 84. MRI/MRA brain April 2018: No acute intracranial findings. Expected evolution of now chronic right occipital hemorrhagic infarct as well as unchanged additional small remote bilateral cortical infarct s as discussed. Chronicleft cervical ICA occlusion at the origin with reconstitution of flow in the left ICA terminus through the prominent left posterior communicating artery, unchanged. Mild to moderate narrowing of the right petrous intracranial ICA segment distally. ?No oth er intracranial arterial occlusion or significant focal narrowi ng on intracranial [id number] MRA. Proximal right cervical ICA stent limits evaluation of the stenosis but the vessel is patent distally with normal caliber. ?No other large vessel occlusion or significant foc al narrowing on extracranial [id number] MRA. Angiogram September 20 2016: Successful angioplasty and stenting of right ICA with minimal residual stenosis. Angiogram September 19 2016: 1. > 95% stenosis of the right ICA. 2. ?Chronic complete occlusion of the left ICA. 3. ?Mild stenosis of the cavernous right ICA. 4. ?Moderate to severe stenosis of the left verte bral artery origin. 5.?Filling of the left MCA and HUNTER territories via a left LODGING MANAGER MRI September 2016: Acute infarct with slight mass effect and pe techial hemorrhage involving small area of lateral right occipital p ole. ?Remote ischemic changes as detailed. CEREBROVASCULAR CATEGORIES Asymptomatic cervicocephalic stenosis/vasculopathy IMPRESSION Mr. Nguyen is a 64-year-old male with diffuse atherosclerotic raise occlusive disease, including known left carotid occlusion, r ight carotid stenosis status post stent in 2017, known left vertebral parag gin stenosis, and recently discovered left subclavian stenosis. Patient bianchi d short event a few weeks ago while out in the sun after taking Percocet a nd an allergy pill. Unclear if these symptoms were related to his known di ffuse occlusive disease. His carotid ultrasound a year ago showed fairly similar findings involving the left vertebral artery origin and left subclavian artery. Angiogram in 2017 also confirmed vertebral origin st enosis. His vascular risk factors are much better controlled now than in the past. He is still working on his diabetes control. I recommend contin uing conservative management which short-term ultrasound follow-u p in 3 months. If he develops further symptoms, earlier workup, repeat CT a ngiogram or diagnostic angiogram can be considered. He will follow with Dr. Quintanilla, who did the original carotid stenting in 2017. Patient was r equested to seek immediate medical attention if new symptoms develop. Al l questions were answered. PLAN 1. Repeat carotid ultrasound in 3 months 2. Follow-up at the time of carotid ultrasound with Dr. Olga mack 3. Vascular risk factor control 4. Education provided Questions asked/ answered. Follow-up with results/ adherence to plan/ continued education. SIGNATURE Carlos Dee MD April 29, 2019 CC Dana Monique APRN.GRAVURE PRINTING MACHINIST [id number] [facility] [address] Colton Adams MD ([facility]) [address] [place] [id number] cnov on 2019-04-29 CNOV Office Visit (NSEVMN) Normal 04-29-20 [facility] TOMMY NGUYEN ([id number]) 1955 M [place] Date Time Provider Department ([id number]) 04/29/19 10:30 AM CARLOS DEE During your visit today, we recorded the following informati on about you: Pulse Blood pressure Weight Height 86/minute 125/66 120.7 kg 1.905 m Carlos Dee MD 04/29/2019 4:38 PM Signed [facility] Outpatient Visit Consultation is requested by: Dana Monique APRN.GRAVURE PRINTING MACHINIST [id number] [facility] [id number] PCP: Colton Adams MD ([facility]) [address] [place] [address] CEREBROVASCULAR HISTORY Chief complaint: Carotid, vertebral and subclavian stenoses History of present illness: Tommy barton is a 64 year old male with vascular risk factors, who presents for evaluation of mul tiple craniocervical vascular stenoses. PMH significant for HTN, HPL, DM, CAD s/p CABG 15 year s ago, known AAA, TIAs 2012, syncopal episode 2014. He developed?L leg heaviness and paresthesias of L LE and L hand a few days demarco or to seeing medical attention in 2016. He did have previous episodic lightheadedness, dizziness, vision aguero es, HAs.?CTH NAP. Unable to tolerate MRI. CTA showed L ICA occlusion with reconstitution through L PComm and >?75% stenosis R ICA as well as >?70% b/l verteb ral stenosis. Transferred to [facility] with NIHSS 0 upon admission. MRI showed a cute R MCA infarct?and remote L parietal infarct. ?TTE show ed no abnormal wall motion or atrial enlargement with normal valves, n o PFO. He underwent cerebral angiogram which confirmed high grade?R ICA stenosis 95%, L ICA occlusi on with reconstitution, mod-severe L Vertebral origin stenosis.?He w as loaded with plavix and aspirin. He underwent successful isadora oplasty/stenting of the right internal carotid artery. ?Prior to admission he was not adhe rent to his aspirin, statin, BP meds but was taking his insulin. He was discharged on DAPT, lipitor 40mg (LDL 93), BP me ds, insulin adjusted per endo for uncontrolled DM - A1c 10.1. Later on, he received multiple cardiac stents, and he remain s on dual antiplatelet therapy. About a month ago, he had an episode while walking around at a fair in hot weather that he got dizzy with trouble getting his thoughts. He also took an allergy pill and Percocet before this event. His symptoms resolved shoulder thereafter. No recurrence ever since . He continues to have chronic dizziness. No other stroke sympt oms. No recurrence since last episode. Blood pressure and cholesterol are well controll ed. Diabetes he still working on. Repeat carotid ultrasoun d raised suspicion of new left subclavian stenosis. Patient's carotid stenting was done by dayami Nolan nd patient was referred back to endovascular clinic for evaluation. PAST MEDICAL HISTORY Diagnosis Date - Aortic aneurysm (HCC) - Carotid artery stenosis - Coronary artery disease - Depression - Diabetes (HCC) - Diarrhea - Fibromyalgia - Heart disease - High cholesterol - Hypertension - Obesity, Class I, BMI 30-34.9 04/12/2018 - Stroke (HCC) - Suspected obstructive sleep apnea syndrome 02/26/2017 PAST SURGICAL HISTORY Procedure Laterality Date - ANKLE ARTHROSCOPY/SURGERY Left - APPENDECTOMY - COLONOSCOP W/ OR W/O BRSH SPEC 05/30/13 Colonoscopy - HEART SURGERY HX Triple bypas - [place] ANESTH,KNEE JOINT; NOS Right - TONSILLECTOMY HX FAMILY HISTORY Problem Relation Age of Onset - other (lung cancer) Father - Diabetes Mother - other (pancreatic cancer) Mother Social History Socioeconomic History Marital status: Spouse name: Not on file Number of children: 3 Years of education: 13+ Highest education level: Not on file Occupational History Not on file Social Needs Financial resource strain: Not on file Food insecurity: Worry: Not on file Inability: Not on file Transportation needs: Medical: Not on file Non-medical: Not on file Tobacco Use Smoking status: Never Smoker Smokeless tobacco: Never Used Substance and Sexual Activity Alcohol use: No Drug use: No Sexual activity: Yes Partners: Female Lifestyle Physical activity: Days per week: Not on file Minutes per session: Not on file Stress: Not on file Relationships Social connections: Talks on phone: Not on file Gets together: Not on file Attends bahai service: Not on file Active member of club or organization: Not on file Attends meetings of clubs or organizations: Not on file Relationship status: Not on file Intimate partner violence: Fear of current or ex partner: Not on file Emotionally abused: Not on file Physically abused: Not on file Forced sexual activity: Not on file Other Topics Concerns: Not on file Social History Narrative Not on file MEDICATIONS Current Outpatient Medications: metoprolol tartrate, short acting, (LOPRESSOR) 25 mg tablet q 12 HR. amoxicillin-clavulanic acid (AUGMENTIN) 500-125 mg per table t aspirin 81 mg chewable tablet Take 1 tablet by mouth once da bautista. clopidogrel (PLAVIX) 75 mg tablet Take 1 tablet by mouth onc e daily. insulin glargine (LANTUS ANASTASIYA OSTAR U-100 INSULIN) 100 unit/mL (3 mL) inpn Inject 80 Units subcutaneously daily at bedtime. lisinopril (ZESTRIL, PRINIVIL) 5 mg tablet Take 1 tablet by mouth once daily. fexofenadine (JESSICA) 180 m g tablet Take 180 mg by mouth once daily as needed. atorvastatin (LIPITOR) 80 mg tablet Take 1 tablet by mouth o nce daily. nitroglycerin sublingual (NITROQUICK) 0. 4 mg SL tablet Dissolve 1 tablet under the tongue as needed for Chest Pain. insulin aspart (NOVOLOG FLEXPEN) 100 unit/mL inpn Inject 20 Units subcutaneously three times daily with meals. oxyCODONE-acetaminophen (PER COCET) 5-325 mg tablet Take 1 tablet by mouth every 8 hours as needed for Pain. lidocaine (LIDODERM) 5 % Apply 1 Patch as direct ed once daily as needed (back pain). gabapentin 600 mg tablet Take 600 mg by mouth three times da bautista. No current facility-administered medications for this visit. REVIEW OF SYSTEMS ALLERGIES No Known Allergies Review of Systems Constitutional Positive for Fatigue Eyes: Negative Hent: Negative Cardiovascular: Negative Respiratory: Negative GI: Negative : Negative Endocrine: Negative Musculoskeletal Positive for Muscle Pain (from fibromyalgia) Integumentary: Negative Heme/Lymph: Negative Allergy/Immunologic: Negative Neurologic Positive for Weakness (left leg weakness) Psychiatric: Negative Patient's Review of Systems has been reviewed wi th the patient and updated as appropriate. PHYSICAL EXAMINATION BP 125/66 (BP Site: Left Arm, BP Position: Sitting, BP Cuff Size: Regular Adult) Pulse 86 Ht 190.5 cm (6' 3) Wt 120.7 kg (266 l b) SpO2 97% BMI 33.25 kg/m? General: Not in acute distress, pleasant male, w ell-developed, well-nourished Head: atraumatic, normocephalic Eyes: No scleral icterus, no conjunctival injection Neck: supple, no JVD Cardiovascular: Normal S1/S2, no murmurs, RRR Lungs: Clear to auscultation bilaterally Abdomen: Soft, nondistended, nontender Extremities: No edema, clubbing or cyanosis noted. Skin: No significant bruising or rash Neurological: Mental status: Alert, awake and oriented x3. Speech, language, attention span, memory and fund of knowledge are intact. Cranial nerves: Pupils equal , reactive. EOMI. Visual rossi full. Normal facial sensation. No facial asymmetry. Uvula midline, symmetric p alatal elevation. Symmetric shoulder shrug. Tongue midline. Motor: Normal bulk, tone and strength bilaterally. No pronat or drift. Sensory: Normal to soft touch, pinprick, temperature bilater ally. Coordination: No dysmetria or ataxia Reflexes: Symmetric. Gait: Walks without assistance. LABS Cholesterol: Cholesterol, Total (mg/dL) Date Value 04/02/2019 107 LDL Cholesterol (mg/dL) Date Value 04/02/2019 54 HDL Cholesterol (mg/dL) Date Value 04/02/2019 33 Triglyceride (mg/dL) Date Value 04/02/2019 98 Diabetes: Hemoglobin A1C (%) Date Value 02/26/2017 9.2 IMAGING Carotid ultrasound March 2019: The right ICA stent was visualized and is patent. Plaque as described above. ?No hemodynamically signi ficant flow velocities identified and stenosis estimate in the right ICA is 1-29% by NASCET criteria. ?Color and spectral Doppler evaluation agai n demonstrate occlusion of the left ICA. ?There are elevated velocities in the bilateral ECAs, consistent with stenosis. The right verteb ral artery exhibits antegrade flow. ?The velocities in the left vertebral cas ry origin have increased when compared to the prior exam, with a peak systolic velocity of 611 cm/s consistent with stenosis. The right subclavian artery wavefo royal are unremarkable. ?There are renzo vated velocities in the left subclavian artery with a peak systolic velocity of 636 cm/s, and is consistent with a 50-99% stenosis. The peak systolic velocities in the right ICA stent are as f ollows in centimeters per second: Proximal to stents 76, proxima l stent 118, mid stent 116, distal stent 87, distal to stent 81. Carotid ultrasound April 2018: The rig ht carotid stent was visualized and is patent. ?The peak systolic velocities, end diastolic v elocities, and ICA/CCA ratio in the right internal carotid artery are c onsistent with 1-29% stenosis by NASCET criteria. ?Color Doppler and spectral Doppler eval uation again demonstrate occlusion of the left internal carotid artery. ? There are high resistance spectral Doppler waveforms in the left common car otid artery consistent with the patient's distal occlusion, otherw ise the common carotid arteries are unremarkable. ?There are elevated velocities in the bilateral external carotid arteries co nsistent with stenosis. ?The vertebral arteries are patent and demonstrate anteg rade flow bilaterally. ??The right vertebral artery velocities are within normal limits. ?The velocities in the left vertebral artery origin are again elevated at 552 cm/s consistent wi th stenosis. ?The spectral Doppler waveforms in the remainder of the lef t vertebral artery are dampened in appearance. ?The right subclavian artery i s unremarkable. ?There are elevated velocities in the left subclavian artery at 455 cm/s consistent with 50-99% stenosis. ?The peak systolic velocities througho ut the right carotid artery stent are as follows in centimeters per secon d: Proximal to stent 71, proximal stent 88, mid stent 119, distal stent 92, distal to stent 84. MRI/MRA brain April 2018: No acute int racranial findings. Expected evolution of now chronic right occipital hemorrhagic infarct as well a s unchanged additional small remote bilateral cortical infar cts as discussed. Chronicleft cervical ICA occlusion at the origin with reconstituti on of flow in the left ICA terminus through the prominent left posterior communicat ing artery, unchanged. Mild to moderate narrowing of the right petrous intracranial ICA segment distally. ?No other intracranial arterial occlusion or significant focal narrowing on intracran ial [id number] MRA. Proximal right cervical ICA stent limits evaluation of the stenosis but the vessel is patent distally with normal caliber. ?No other la rge vessel occlusion or significant focal narrowing on extracranial [id number] MRA. Angiogram September 20 2016: Successful isadora oplasty and stenting of right ICA with minimal residual stenosis. Angiogram September 19 2016: 1. > 95% stenosis of the right ICA. 2. ?Chronic complete occlusion of the left ICA. 3. ?Mild stenosis of the cavernous right ICA. 4. ?Moderate to severe stenosis of the left vertebral a rtery origin. 5.?Filling of the left MCA and HUNTER territories via a l eft LODGING MANAGER MRI September 2016: Acute infarct with sligh t mass effect and petechial hemorrhage involving small area of lateral right oc cipital pole. ?Remote ischemic changes as detailed. CEREBROVASCULAR CATEGORIES Asymptomatic cervicocephalic stenosis/vasculopathy IMPRESSION Mr. Nguyen is a 64-year-old male with diffuse atheroscl erotic raise occlusive disease, including known left carotid oc clusion, right carotid stenosis status post stent in 2017, known left vertebral origin stenosis, an d recently discovered left subclavian stenosis. Patient had short event a few weeks ago while out in the sun after taking Percocet and an allergy pi ll. Unclear if these symptoms were related to his known diffuse occlusive disease. His carotid ultrasound a year ago showed fairly similar findings involvi ng the left vertebral artery origin and left subclavian artery. Angiogra m in 2017 also confirmed vertebral origin stenosis. His vascular risk factors are much better controlled now than in the p ast. He is still working on his diabetes control. I recommend continuing conservative management which short-ter m ultrasound follow-up in 3 months. If he develops fu rther symptoms, earlier workup, repeat CT angiogram or diagnostic a ngiogram can be considered. He will follow with Dr. Quintanilla, who did the original carotid stenting i n 2016. Patient was requested to seek immediate medical at [facility] if new symptoms develop. All questions were answered. PLAN 1. Repeat carotid ultrasound in 3 months 2. Follow-up at the time of carotid ultrasound with Dr. Olga mack 3. Vascular risk factor control 4. Education provided Questions asked/ answered. F ollow-up with results/ adherence to plan/ continued education. SIGNATURE Carlos Dee MD April 29, 2019 CC Dana Monique APRN.GRAVURE PRINTING MACHINIST [id number] [facility] [address] Colton Adams MD ([facility]) [address] [place] [id number] Referring Provider: DANA MONIQUE [[id number]] Allergies As of Date: 04/29/2019 (No Known Allergies) Date Reviewed: 04/29/2019 Reviewed by: Eriberto (Rn) LIBAN Yoo - Fully Assessed Reason for Visit: New Patient [[id number]] Primary Visit Diagnosis:Stenosis of right carotid artery [I6 5.21] Other Visit Diagnoses:Subclavian arterial stenosis (HCC) [I7 7.1] Occlusion of left carotid artery [I65.22] Occlusion and stenosis of left vertebral artery [I65.02] H/O: stroke [Z86.73] Hypertension, unspecified type [I10] Hyperlipidemia, unspecified hyperlipidemia type [E78.5] Dizziness and giddiness [R42] Order(s):US CAROTID BILAT [[id number]] Order #: [id number] FUTU RE Prescriptions as of 04/29/2019 Sig: METOPROLOL TARTRATE 25 MG TAB* q 12 HR. AMOXICILLIN 500 MG-POTASSIUM * ASPIRIN 81 MG CHEWABLE TABLET Take 1 tablet by mouth once d* CLOPIDOGREL 75 MG TABLET Take 1 tablet by mouth once d* INSULIN GLARGINE (U-100) 100 * Inject 80 Units subcutaneousl * LISINOPRIL 5 MG TABLET Take 1 tablet by mouth once d* FEXOFENADINE 180 MG TABLET Take 180 mg by mouth once blake* ATORVASTATIN 80 MG TABLET Take 1 tablet by mouth once d* NITROGLYCERIN 0.4 MG SUBLINGU* Dissolve 1 tablet under the t * INSULIN ASPART (U-100) 100 UN* Inject 20 Units subcutaneousl * OXYCODONE-ACETAMINOPHEN 5 MG-* Take 1 tablet by mouth every * LIDOCAINE 5 % TOPICAL PATCH Apply 1 Patch as directed onc* GABAPENTIN 600 MG TABLET Take 600 mg by mouth three ti* Problem List As Of Date 04/29/2019 Noted Resolved Diarrhea [R19.7] Stroke (cerebrum) (HCC) [I63.9] INVALID FOR* More... ICAO (internal carotid artery occlusion) [I65.2*INVALID FOR* Type 2 diabetes mellitus with diabetic polyneur*INVALID FOR* More... Cerebral infarction due to stenosis of right ca*INVALID FOR* Left carotid artery occlusion [I65.22] INVALID FOR* Essential hypertension [I10] INVALID FOR* More... Mixed hyperlipidemia [E78.2] INVALID FOR* More... AAA (abdominal aortic aneurysm) without rupture*INVALID FOR* More... Inferolateral NSTEMI (non-ST elevated myocardia*INVALID FOR* 03/01/2017 More... Left leg weakness [R29.898] INVALID FOR* Coronary artery disease involving coronary bypa*INVALID FOR* More... IBS (irritable bowel syndrome) [K58.9] INVALID FOR* Fibromyalgia [M79.7] INVALID FOR* SUMMARY INVALID FOR* More... Non-pressure chronic ulcer of right ankle, limi*INVALID FOR* More... Suspected obstructive sleep apnea syndrome [G47*INVALID FOR* More... Postural dizziness with presyncope [R42, R55] INVALID FOR* More... Obesity, Class I, BMI 30-34.9 [E66.9] INVALID FOR* More... Medications Discontinued During This Encounter furosemide (LASIX) 40 mg tablet 30 t* 11 04/27/2018 04/29/20 Route: ORAL Sig: Take 1 tablet by mouth once daily. Disc: Reason for discontinue is not on file. Disposition: Return in about 3 months (around 07/30/2019) for follow-up. Follow-up and Disposition History Recorded Encounter Status:Closed by CARLOS DEE MD on 04/29/19 carotid [place] on 2 Bilirubin.direct * * *Final Report* * * Normal 04-02-2019 [place] [Mass/Vol] DATE OF EXAM: Apr 02 2019 11:04AM [facility] MNU 1077 - US CAROTID [place] / [place] PROCEDURE REASON: Dizziness and giddiness ([id number]) * * * * Physician Interpretation * * * * Indication: 63-year-old male with known left ICA occlusion a nd left vertebral artery origin stenosis. The patient is also status post right ICA stent placement on 09/20/2016. Today's exam is compared to the exam done on 04/13/2018. Carotid ultrasound examination was performed including mckinney scale, color Doppler, and spectral Doppler images. Plaque distribution: Moderate intimal thickening bilaterally . Calcified shadowing plaque is seen in the right subclavian and distal right CCA just proximal to the stent. There is calcified shadowing addison que in the left CCA bifurcation. There is hypoechoic material in the le ft ICA, filling the vessel lumen. ICA Peak Systolic Velocity (cm/sec) Right: 118 Left: Occluded ICA End Diastolic Velocity (cm/sec) Right: 37 Left: Occluded CCA Peak Systolic Velocity (cm/sec) Right: 68 Left: 76 ECA Peak Systolic Velocity (cm/sec) Right: 192 Left: 200 Vertebrals (cm/sec) Right: 58 antegrade Left: 47 antegrade Subclavians (cm/sec) Right: 223 Left: 636 ICA/CCA Systolic Velocity Ratio Right: 1.7 Left: Occluded ICA Stenosis Estimation Right: 1-29% Left: 100% Technologist: Michelle Samuel RVT RDMS IMPRESSION: The right ICA stent was visualized and is patent . Plaque as described above. No hemodynamically significant fl ow velocities identified and stenosis estimate in the right ICA is 1-29% by NASCET criteria. Color and spectral Doppler evaluation again demonstrate occlusion of the left ICA. There are elevated velocities in the bilateral ECAs, consistent with stenosis. The right vertebral artery exhibits antegrade flow. The vel[place] in the left vertebral artery origin have increased when compare d to the prior exam, with a peak systolic velocity of 611 cm/s consis tent with stenosis. The right subclavian artery waveforms are unremarkable. Ther e are elevated velocities in the left subclavian artery with a pea k systolic velocity of 636 cm/s, and is consistent with a 50-99% stenos is. The peak systolic velocities in the right ICA stent are as f ollows in centimeters per second: Proximal to stents 76, proximal sten t 118, mid stent 116, distal stent 87, distal to stent 81. Television Agent: MAO Transcribe Date/Time: Apr 02 2019 11:11A Dictated by : SUSAN LOOMIS MD This examination was interpreted and the report reviewed and electronically signed by: SUSAN LOOMIS MD on Apr 02 2019 3:04PM EST [id number] progress on 2019-03 PROGRESS HNO ID: [id number] Normal 04-02-2019 [facility] [place] [facility] Author: Michelle Samuel Rdms [place] ([id number]) Service: Radiology Author Type: ? Type: Progress Notes Filed: 04/02/2019 2:09 PM Note Text: Radiology Service Progress Note PATIENT NAME: Tommy Nguyen DATE OF SERVICE: April 02, 2019 TIME: 2:09 PM PATIENT IDENTITY VERIFICATION COMPLETED USING TWO (2) METHOD S: Name and Date of confirmed by identification band. PATIENT GENDER DATA: Male PATIENT RELEVANT IMPLANT DATA REVIEWED: Not Applicable RADIOLOGY DEPARTMENT: Ultrasound PERIPHERAL IV DATA: Not applicable SIGNED BY: Mihcelle Samuel Rdms April 02, 2019 2:09 PM PROGRESS HNO ID: [id number] Normal 04-02-2019 [facility] [place] [facility] Author: Dana Monique Osborne ([id number]) Service: ? Author Type: Nurse Practitioner Type: Progress Notes Filed: 04/05/2019 2:09 PM Note Text: [facility] Office Follow-up Consultation is requested by: SELF PCP: Colton Adams MD ([facility]) [address] [place] [address] CEREBROVASCULAR HISTORY History of Recent Event: Tommy Nguyen is a 63 year old mal e who presents for evaluation of stroke and R carotid stenosis s/p stenting , L ICA occlusion. Reason for visit: routine FU Date of last event: September 2016 History of event: PMH significant for HTN, HPL, DM, CAD s/p CABG 15 years ago, known AAA, TIAs 2012, syncopal episode 2014. Developed?L leg heaviness and paresthesias of L LE and L hand a few days prior to seeing m edical attention. Previous episodic lightheadedness, dizziness, vis ion changes, HAs.?PCP directed him to [place] ED. CTH NAP. Unable to tole rate MRI. CTA showed L ICA occlusion with reconstitution through L [facility] a nd >?75% stenosis R ICA as well as >?70% b/l vertebral stenosis. [place] sferred to [facility] and NIHSS 0 upon admission. Cardiac enzymes initially elevat ed?OSH but normalized. MRI showed acute R MCA infarct?and remote L mehnaz etal infarct. ?TTE showed no abnormal wall motion or atrial enlargement wi th normal valves, no PFO. He underwent cerebral angiogram which confir med high grade?R ICA stenosis 95%, L ICA occlusion with reconstitutio n, mod-severe L Vertebral stenosis.?He was loaded with plavix and aspirin. He underwent successful angioplasty/stenting (Protege) R ICA. Prior to ad mission he was not adherent to his aspirin, statin, BP meds but was martell ing his insulin. He was discharged on DAPT, lipitor 40mg (LDL 93), B P meds, insulin adjusted per endo for uncontrolled DM - A1c 10.1. Antiplatelet, Anticoalulant, Statin: Aspirin, Clopidogrel an d Atorvastatin Side effects : No Refills needed: No Residual deficits: Left-sided Weakness and Ataxia PT/OT/ST: none Disposition: Home Next phase of care: Not Applicable Interval history: - last visit September 2017 - since our last visit - needed repeat cardiac stents - 3 weeks ago - L leg tingling, dizzy, slurred speech a min or 2, trouble gathering thoughts, tightness L cheek - not drooping. Had jessica pope earlier that day. Occurred in setting of humid, hot weather walking around [place]. Diaphoretic, near syncopal, nausea. b/l shoulder pain. Resolved within 15 min. No recurrence since - experiences positional dizziness and dizziness with exerti on, and L arm feels funny after lifting something heavy - A1c 9.0 - few weeks ago - PCP adjusting medications and ad justing lifestyle; sugar yesterday morning 150 fasting - BP controlled today; home BPs 120s/60s - lipids not done recently - back pain from arthritis, curve, some spinal stenosis - sees chiropractor and has had some neck manipulation - high velocities L vert and L subclavian today noted on CUS with patent R carotid stent and known L ICA occlusion Questions for visit: I was worried when I almost felt I wou ld pass out PAST MEDICAL HISTORY Diagnosis Date - Aortic aneurysm (HCC) - Carotid artery stenosis - Coronary artery disease - Depression - Diabetes (HCC) - Diarrhea - Fibromyalgia - Heart disease - High cholesterol - Hypertension - Obesity, Class I, BMI 30-34.9 04/12/2018 - Stroke (HCC) - Suspected obstructive sleep apnea syndrome 02/26/2017 PAST SURGICAL HISTORY Procedure Laterality Date - ANKLE ARTHROSCOPY/SURGERY Left - APPENDECTOMY - COLONOSCOP W/ OR W/O BRSH SPEC 05/30/13 Colonoscopy - HEART SURGERY HX Triple bypas - [place] ANESTH,KNEE JOINT; NOS Right - TONSILLECTOMY HX FAMILY HISTORY Problem Relation Age of Onset - other (lung cancer) Father - Diabetes Mother - other (pancreatic cancer) Mother Social History Socioeconomic History Marital status: Spouse name: Not on file Number of children: 3 Years of education: 13+ Highest education level: Not on file Occupational History Not on file Social Needs Financial resource strain: Not on file Food insecurity: Worry: Not on file Inability: Not on file Transportation needs: Medical: Not on file Non-medical: Not on file Tobacco Use Smoking status: Never Smoker Smokeless tobacco: Never Used Substance and Sexual Activity Alcohol use: No Drug use: No Sexual activity: Yes Partners: Female Lifestyle Physical activity: Days per week: Not on file Minutes per session: Not on file Stress: Not on file Relationships Social connections: Talks on phone: Not on file Gets together: Not on file Attends bahai service: Not on file Active member of club or organization: Not on file Attends meetings of clubs or organizations: Not on file Relationship status: Not on file Intimate partner violence: Fear of current or ex partner: Not on file Emotionally abused: Not on file Physically abused: Not on file Forced sexual activity: Not on file Other Topics Concerns: Not on file Social History Narrative Not on file Current Outpatient Medications: furosemide (LASIX) 40 mg tablet Take 1 tablet by mouth once daily. aspirin 81 mg chewable tablet Take 1 tablet by mouth once da bautista. clopidogrel (PLAVIX) 75 mg tablet Take 1 tablet by mouth onc e daily. insulin glargine (LANTUS SOLOSTAR U-100 INSULIN) 100 unit/mL (3 mL) inpn Inject 80 Units subcutaneously daily at bedtime. lisinopril (ZESTRIL, PRINIVIL) 5 mg tablet Take 1 tablet by mouth once daily. fexofenadine (JESSICA) 180 mg tablet Take 180 mg by mouth on ce daily as needed. atorvastatin (LIPITOR) 80 mg tablet Take 1 tablet by mouth o nce daily. nitroglycerin sublingual (NITROQUICK) 0.4 mg SL tablet Disso lve 1 tablet under the tongue as needed for Chest Pain. insulin aspart (NOVOLOG FLEXPEN) 100 unit/mL inpn Inject 20 Units subcutaneously three times daily with meals. oxyCODONE-acetaminophen (PERCOCET) 5-325 mg tablet Take 1 ta blet by mouth every 8 hours as needed for Pain. lidocaine (LIDODERM) 5 % Apply 1 Patch as directed once star y as needed (back pain). gabapentin 600 mg tablet Take 600 mg by mouth three times da bautista. No current facility-administered medications for this visit. MEDICATIONS Current Outpatient Medications Medication Sig Dispense Refill - furosemide (LASIX) 40 mg tablet Take 1 tablet by mouth onc e daily. 30 tablet 11 - aspirin 81 mg chewable tablet Take 1 tablet by mouth once daily. 30 tablet 3 - clopidogrel (PLAVIX) 75 mg tablet Take 1 tablet by mouth o nce daily. 30 tablet 3 - insulin glargine (LANTUS SOLOSTAR U-100 INSULIN) 100 unit/ mL (3 mL) inpn Inject 80 Units subcutaneously daily at bedtime. - lisinopril (ZESTRIL, PRINIVIL) 5 mg tablet Take 1 tablet b y mouth once daily. 90 tablet 2 - fexofenadine (JESSICA) 180 mg tablet Take 180 mg by mouth once daily as needed. - atorvastatin (LIPITOR) 80 mg tablet Take 1 tablet by mouth once daily. 90 tablet 3 - nitroglycerin sublingual (NITROQUICK) 0.4 mg SL tablet Dis solve 1 tablet under the tongue as needed for Chest Pain. 90 tablet 3 - insulin aspart (NOVOLOG FLEXPEN) 100 unit/mL inpn Inject 2 0 Units subcutaneously three times daily with meals. 30 Pen 1 - oxyCODONE-acetaminophen (PERCOCET) 5-325 mg tablet Take 1 tablet by mouth every 8 hours as needed for Pain. - lidocaine (LIDODERM) 5 % Apply 1 Patch as directed once da bautista as needed (back pain). 30 Patch 3 - gabapentin 600 mg tablet Take 600 mg by mouth three times daily. No current facility-administered medications for this visit. REVIEW OF SYSTEMS ALLERGIES No Known Allergies PHYSICAL EXAMINATION BP 132/71 (BP Site: Right Arm, BP Position: Sitting, BP Cuff Size: Large Adult) Pulse 81 Resp 14 Ht 190.5 cm (6' 3) Wt 120.7 kg (266 lb) SpO2 98% BMI 33.25 kg/m? General: Well-developed, well-nourished, in no acute distres s. Neurological: Awake, alert, oriented to person, place, and t jenniffer. Speech fluent, no dysarthria. Naming, comprehension, intact. Good a ttention and insight into illness. Cranial Nerves: PERRL, extraocular movements intact without nystagmus. Visual rossi full. Facial sensation and movements normal an d symmetric. Motor: Normal bulk and tone. Strength 5/5 throughout. No pro nator drift or tremor. Sensation: Intact light touch Coordination: Rapid alternating movements symmetric bilatera lly. Ozoamm-uj-uydo, mxyl-wm-ktgb without dysmetria bilaterally. Gait: Narrow-based, normal spaced and stable without assista nce. NIHSS 0 LABS Cholesterol: Cholesterol, Total (mg/dL) Date Value 03/01/2017 106 LDL Cholesterol (mg/dL) Date Value 03/01/2017 52 HDL Cholesterol (mg/dL) Date Value 03/01/2017 23 Triglyceride (mg/dL) Date Value 03/01/2017 154 Diabetes: Hemoglobin A1C (%) Date Value 02/26/2017 9.2 IMAGING Carotid US today: IMPRESSION: ?The right ICA stent was visualized and is paten t. Plaque as described above. ?No hemodynamically significant f low velocities identified and stenosis estimate in the right ICA is 1-29% by NASCET criteria. ?Color and spectral Doppler evaluation agai n demonstrate occlusion of the left ICA. ?There are elevated velocities in the bilateral ECAs, consistent with stenosis. The right vertebral artery exhibits antegrade flow. ?The jose luis ocities in the left vertebral artery origin have increased when compare d to the prior exam, with a peak systolic velocity of 611 cm/s consis tent with stenosis. The right subclavian artery waveforms are unremarkable. ?The re are elevated velocities in the left subclavian artery with a pea k systolic velocity of 636 cm/s, and is consistent with a 50-99% stenos is. The peak systolic velocities in the right ICA stent are as f ollows in centimeters per second: Proximal to stents 76, proximal sten t 118, mid stent 116, distal stent 87, distal to stent 81. CEREBROVASCULAR CATEGORIES Ischemic Stroke: Large-artery atherosclerosis (embolus/throm bosis) IMPRESSION 1. L vertebral stenosis and L subclavian stenosis - isolated episode of dizziness, near syncope, slurred speech x 15 min in setting of possible dehydration, hot/humid weather. Unclear if this could be sym ptomatic L vert stenosis vs vasovagal syncope given circumstances. Also c/o L arm pain with exercise. 2. R MCA ischemic stroke - secondary to high grade R ICA zoraida nosis s/p stenting on 09/20/16. Of note, old L parietal infarct seen on MRI. Clinically improved - resolved?L LE weakness. ON DAPT (recen t cardiac stents) and high intensity statin for secondary prevention. ?CUS shows patent R ICA stent, known L ICA occlusion. 3. CAD s/p CABG 2001?s/p STEMI 08/09/16. s/p cardiac stents , s/p stents 04/2018 - on DAPT and high intensity statin. 4. HPL - LDL 52?- ?lipitor 80mg. 5. DM2 - poor control - HgbA1c 9.2?- endo lost to follow up 6. HTN - controlled?by home BPs 7. Fatigue, snoring, excessive daytime sleepiness with hx tr eated JOVANNI - no CPAP currently - needs PSG 8. ?AAA - unruptured PLAN 1. Refer to Dr Dee for opinion re: L vertebral and L subcla vian stenosis. 2. Avoid hypotension, stay hydrated, use compression hose 3. Lipids today 4. Keep working on diet/exercise with your PCP re: uncontrol led DM 5. Continue DAPT - cardiac stents 6. BP goal < 140/90 Discussion, counseling, coordination of care > 50% of 40 min utes. Questions asked/ answered. Follow-up with results/ adherence to plan/ continued education. Dana Monique, LEAN LEADER.GRAVURE PRINTING MACHINIST CC SELF Colton Adams MD () [address] [place] [address] lipid panel, basic on 2019-04-02 Cholesterol [Mass/Vol] 107 <200 mg/dL Normal 019 [facility] ([id number]) Comment: Result Comment: <200 mg/dL, Desirable 200-239 mg/dL, Borderline hi gh >239 mg/dL, High Performed By: #### LIPB #### [facility] [place] [facility] [address] [place], [place] [address] Cholesterol in HDL [Mass/Vol] 33 >39 mg/dL Low 04-02-2019 [facility] ([id number]) Comment: Result Comment: 40-59 mg/dL, Acceptable >59 mg/dL, High: Negative ri sk factor for coronary heart disease <40 mg/dL, Low: Positive ris k factor for coronary heart disease Performed By: #### LIPB #### [facility] [place] [facility] [address] [place], [place] [address] Cholesterol in LDL 54 <100 mg/dL Normal 04-02-2019 [facility] [place] [facility] [Mass/Vol] [facility] ([id number]) Comment: Result Comment: <100 mg/dL, Optimal 100-129 mg/dL, Near optimal/ above optimal 130-159 mg/dL, Borderline hi gh 160-189 mg/dL, High >189 mg/dL, Very high Secondary prevention optimal LDL Cholesterol levels are recommended to be < 70 mg/dL Performed By: #### LIPB #### [facility] [place] [facility] [address] [place], [place] [address] Fasting Time 4 hrs Normal 04-02-2019 [facility] ([id number]) Comment: Performed By: #### LIPB #### [place] [address] LDL:HDL Ratio 1.64 <2.54 Normal 04-02-2019 [facility] ([id number]) Comment: Result Comment: Reference: 1. National Cholesterol Educ ation Program ATP III Guideline At-A-Glance Quick Desk Reference: National Heart, Lung, and Blood [place]. National Institutes of Health. 2001: NIH Publication No. 01-3305. 2. An International Atherosc lerosis Society position paper: global recommendations for the management of dyslipidemia: executive summary, Atherosclerosis. 2014: 232(2):410-413. Performed By: #### LIPB #### [place] [address] Non HDL Cholesterol 74 <130 mg/dL Normal 04-02-2019 [facility] (92252) Comment: Result Comment: <130 mg/dL, Optimal 130-159 mg/dL, Near optimal/ above optimal 160-189 mg/dL, Borderline hi gh 190-219 mg/dL, High >219 mg/dL, Very high Secondary prevention optimal non HDL Cholesterol levels are recommended to be < 100 mg/dL Performed By: #### LIPB #### [place] [address] TC:HDL Ratio 3.24 <5.10 Normal 04-02-2019 [facility] ([id number]) Comment: Performed By: #### LIPB #### [place] [address] Triglyceride [Mass/Vol] 98 <150 mg/dL Normal 2018 [facility] (12871) Comment: Result Comment: <150 mg/dL, Normal 150-199 mg/dL, Borderline hi gh 200-499 mg/dL, High >499 mg/dL, Very high Performed By: #### LIPB #### [address], [place] [address] VLDL Cholesterol 20 <30 mg/dL Normal 04-02-2019 [facility] ([id number]) Comment: Performed By: #### LIPB #### [facility] [place] [facility] [address] [place], [place] [address] cnov on 2019-04-02 CNOV Office Visit (NECVS8) Normal 04-02-20 19 [place] [facility] TOMMY NGUYEN ([id number]) 1955 M [place] Date Time Provider Department ([id number]) 04/02/19 10:00 AM DANA MONIQUE [id number] During your visit today, we recorded the following informati on about you: Pulse Respiration Blood pressure Weight 81/minute 14/minute 132/71 120.7 kg Height 1.905 m Dana Monique APRN.GRAVURE PRINTING MACHINIST 04/05/2019 2:09 PM Signed [facility] Office Follow-up Consultation is requested by: SELF PCP: Colton Adams MD ([facility]) [address] [place] [id number] CEREBROVASCULAR HISTORY History of Recent Event: Tommy Nguyen is a 63 year old male who presents for evaluation of stroke and R carotid stenosis s/p stenting, L ICA occlusion. Reason for visit: routine FU Date of last event: September 2016 History of event: PMH significant for HTN, HPL, DM, CAD s/p CABG 15 year s ago, known AAA, TIAs 2012, syncopal episode 2014. Developed?L leg heaviness and paresthesias of L LE and L hand a few days prior to seeing medical attention. Pre vious episodic lightheadedness, dizziness, vision changes, HAs.?PCP d irected him to [facility] ED. CTH NAP. Unable to tolerate MRI. CTA showed L ICA occlus ion with reconstitution through L [facility] and >?75% stenosis R IC A as well as >?70% b/l vertebral stenosis. Transferred to [facility] and NIHSS 0 upon admi ssion. Cardiac enzymes initially elevated?OSH but normalized. MRI showed ac brian R MCA infarct?and remote L parietal infarct. ?TTE show ed no abnormal wall motion or atrial enlargement with normal valves, n o PFO. He underwent cerebral angiogram which confirmed high grade?R ICA stenosis 95%, L ICA occlusi on with reconstitution, mod-severe L Vertebral s tenosis.?He was loaded with plavix and aspirin. He underwent successful angioplasty/stenting (Protege) R ICA. Prior to admission he was not adhe rent to his aspirin, statin, BP meds but was taking his insulin. He was discharg ed on DAPT, lipitor 40mg (LDL 93), BP meds, insulin adjusted per endo for uncontrolled DM - A1c 10.1. Antiplatelet, Anticoalulant, Statin: Aspirin, Clopidogrel an d Atorvastatin Side effects : No Refills needed: No Residual deficits: Left-sided Weakness and Ataxia PT/OT/ST: none Disposition: Home Next phase of care: Not Applicable Interval history: - last visit September 2017 - since our last visit - needed repeat cardiac stents - 3 weeks ago - L leg tingling, dizzy, slurred speech a min or 2, trouble gathering thoughts, tightness L cheek - not drooping. Had ta jessica braga earlier that day. Occurred in setting of humid, ho t weather walking around [place]. Diaphoretic, near syncopal, nausea. b/l s houlder pain. Resolved within 15 min. No recurrence since - experiences positional dizziness and dizziness with exerti on, and L arm feels funny after lifting something heavy - A1c 9.0 - few weeks ago - PCP adjustin g medications and adjusting lifestyle; sugar yesterday morning 150 fasting - BP controlled today; home BPs 120s/60s - lipids not done recently - back pain from arthritis, curve, some spinal stenosis - sees chiropractor and has had some neck manipulation - high velocities L vert and L subclavian today noted on CUS with patent R carotid stent and known L ICA occlusion Questions for visit: I was worried when I almost felt I wou ld pass out PAST MEDICAL HISTORY Diagnosis Date - Aortic aneurysm (HCC) - Carotid artery stenosis - Coronary artery disease - Depression - Diabetes (HCC) - Diarrhea - Fibromyalgia - Heart disease - High cholesterol - Hypertension - Obesity, Class I, BMI 30-34.9 04/12/2018 - Stroke (HCC) - Suspected obstructive sleep apnea syndrome 02/26/2017 PAST SURGICAL HISTORY Procedure Laterality Date - ANKLE ARTHROSCOPY/SURGERY Left - APPENDECTOMY - COLONOSCOP W/ OR W/O BRSH SPEC 05/30/13 Colonoscopy - HEART SURGERY HX Triple bypas - [place] ANESTH,KNEE JOINT; NOS Right - TONSILLECTOMY HX FAMILY HISTORY Problem Relation Age of Onset - other (lung cancer) Father - Diabetes Mother - other (pancreatic cancer) Mother Social History Socioeconomic History Marital status: Spouse name: Not on file Number of children: 3 Years of education: 13+ Highest education level: Not on file Occupational History Not on file Social Needs Financial resource strain: Not on file Food insecurity: Worry: Not on file Inability: Not on file Transportation needs: Medical: Not on file Non-medical: Not on file Tobacco Use Smoking status: Never Smoker Smokeless tobacco: Never Used Substance and Sexual Activity Alcohol use: No Drug use: No Sexual activity: Yes Partners: Female Lifestyle Physical activity: Days per week: Not on file Minutes per session: Not on file Stress: Not on file Relationships Social connections: Talks on phone: Not on file Gets together: Not on file Attends bahai service: Not on file Active member of club or organization: Not on file Attends meetings of clubs or organizations: Not on file Relationship status: Not on file Intimate partner violence: Fear of current or ex partner: Not on file Emotionally abused: Not on file Physically abused: Not on file Forced sexual activity: Not on file Other Topics Concerns: Not on file Social History Narrative Not on file Current Outpatient Medications: furosemide (LASIX) 40 mg tablet Take 1 tablet by mouth once daily. aspirin 81 mg chewable tablet Take 1 tablet by mouth once da bautista. clopidogrel (PLAVIX) 75 mg tablet Take 1 tablet by mouth onc e daily. insulin glargine (LANTUS ANASTASIYA OSTAR U-100 INSULIN) 100 unit/mL (3 mL) inpn Inject 80 Units subcutaneously daily at bedtime. lisinopril (ZESTRIL, PRINIVIL) 5 mg tablet Take 1 tablet by mouth once daily. fexofenadine (JESSICA) 180 m g tablet Take 180 mg by mouth once daily as needed. atorvastatin (LIPITOR) 80 mg tablet Take 1 tablet by mouth o nce daily. nitroglycerin sublingual (NITROQUICK) 0. 4 mg SL tablet Dissolve 1 tablet under the tongue as needed for Chest Pain. insulin aspart (NOVOLOG FLEXPEN) 100 unit/mL inpn Inject 20 Units subcutaneously three times daily with meals. oxyCODONE-acetaminophen (PER COCET) 5-325 mg tablet Take 1 tablet by mouth every 8 hours as needed for Pain. lidocaine (LIDODERM) 5 % Apply 1 Patch as direct ed once daily as needed (back pain). gabapentin 600 mg tablet Take 600 mg by mouth three times da bautista. No current facility-administered medications for this visit. MEDICATIONS Current Outpatient Medications Medication Sig Dispense Refill - furosemide (LASIX) 40 mg tablet Take 1 tablet by mouth once daily. 30 tablet 11 - aspirin 81 mg chewable tablet Take 1 t ablet by mouth once daily. 30 tablet 3 - clopidogrel (PLAVIX) 75 mg tablet Take 1 tablet by mouth o nce daily. 30 tablet 3 - insulin glargine (LANTUS SOLOSTAR U-100 INSULIN) 100 unit/ mL (3 mL) inpn Inject 80 Units subcutaneously daily at bedtime. - lisinopril (ZESTRIL, PRINI MJ) 5 mg tablet Take 1 tablet by mouth once daily. 90 tablet 2 - fexofenadine (JESSICA) 180 mg tablet Take 180 mg by mouth once daily as needed. - atorvastatin (LIPITOR) 80 mg tablet Take 1 tablet by ebony th once daily. 90 tablet 3 - nitroglycerin sublingual (NITROQUICK) 0.4 mg SL tablet Dis solve 1 tablet under the tongue as needed for Chest Pain. 90 tablet 3 - insulin aspart (NOVOLOG FLEXPEN) 100 unit/mL inpn Inject 2 0 Units subcutaneously three times daily with meals. 30 Pen 1 - oxyCODONE-acetaminophen (PERCOCET) 5-325 mg tablet Take 1 tablet by mouth every 8 hours as needed for Pain. - lidocaine (LIDODERM) 5 % A pply 1 Patch as directed once daily as needed (back pain). 30 Patch 3 - gabapentin 600 mg tablet Take 600 mg by mouth three times daily. No current facility-administered medications for this visit. REVIEW OF SYSTEMS ALLERGIES No Known Allergies PHYSICAL EXAMINATION BP 132/71 (BP Site: Right Ar m, BP Position: Sitting, BP Cuff Size: Large Adult) Pulse 81 Resp 14 Ht 190.5 cm (6' 3) Wt 120.7 kg (26 6 lb) SpO2 98% BMI 33.25 kg/m? General: Well-developed, well-nourished, in no acute distres s. Neurological: Awake, alert, oriented to person, place, and time. Speech fluent, no dysarthria. Naming, comprehension, intact. Go od attention and insight into illness. Cranial Nerves: PERRL, extraocular movements int act without nystagmus. Visual rossi full. Facial sensation and movements normal and symme tric. Motor: Normal bulk and tone. Strength 5/5 throughout. No pro nator drift or tremor. Sensation: Intact light touch Coordination: Rapid alternating movements symmetric bilatera lly. Ycicap-vl-ljuh, hygd-or-rrgq without dysmetria bilaterally. Gait: Narrow-based, normal spaced and stable without assista nce. NIHSS 0 LABS Cholesterol: Cholesterol, Total (mg/dL) Date Value 03/01/2017 106 LDL Cholesterol (mg/dL) Date Value 03/01/2017 52 HDL Cholesterol (mg/dL) Date Value 03/01/2017 23 Triglyceride (mg/dL) Date Value 03/01/2017 154 Diabetes: Hemoglobin A1C (%) Date Value 02/26/2017 9.2 IMAGING Carotid US today: IMPRESSION: ?The right ICA stent was visualized and is paten t. Plaque as described above. ?No hemodynamically significant f low velocities identified and stenosis estimate in the right ICA is 1-29% by NASCET criteria. ?Color and spectral Doppler evaluation agai n demonstrate occlusion of the left ICA. ?There are elevated velocities in the bilateral ECAs, consistent with stenosis. The right vertebral artery exhibits antegrade flow. ?The jose luis ocities in the left vertebral artery origin have increased when compare d to the prior exam, with a peak systolic velocity of 611 cm/s consis tent with stenosis. The right subclavian artery waveforms are unremarkable. ?The re are elevated velocities in the left subclavian artery with a pea k systolic velocity of 636 cm/s, and is consistent with a 50-99% stenos is. The peak systolic velocities in the right ICA stent are as f ollows in centimeters per second: Proximal to stents 76, proximal sten t 118, mid stent 116, distal stent 87, distal to stent 81. CEREBROVASCULAR CATEGORIES Ischemic Stroke: Large-artery atherosclerosis (embolus/throm bosis) IMPRESSION 1. L vertebral stenosis and L subclavian stenosis - isolated episode of dizziness, near syncope, slurred speech x 15 min in setting of possible dehydration, hot/humid weather. Unclear if this could be s ymptomatic L vert stenosis vs vasovagal syncope given circumstances. Also c/ o L arm pain with exercise. 2. R MCA ischemic stroke - secondary to high grade R ICA stenosis s/p stenting on 09/20/16. Of note, old L parietal infa rct seen on MRI. Clinically improved - resolved?L LE weakness. ON DAPT (recent cardiac stents) and high intensity statin for secondary prevention. ?CUS shows patent R ICA s tent, known L ICA occlusion. 3. CAD s/p CABG 2001?s/p STEMI 08/09/16. s/p cardiac stents 02/28/17, s/p stents 04/2018 - on DAPT and high intensity statin. 4. HPL - LDL 52?- ?lipitor 80mg. 5. DM2 - poor control - HgbA1c 9.2?- endo lost to follow up 6. HTN - controlled?by home BPs 7. Fatigue, snoring, excessi ve daytime sleepiness with hx treated JOVANNI - no CPAP currently - needs PSG 8. ?AAA - unruptured PLAN 1. Refer to Dr Dee for opinion re: L vertebral and L subcla vian stenosis. 2. Avoid hypotension, stay hydrated, use compression hose 3. Lipids today 4. Keep working on diet/exercise with your PCP re: uncontrol led DM 5. Continue DAPT - cardiac stents 6. BP goal < 140/90 Discussion, counseling, coordination of care > 50% of 40 min utes. Questions asked/ answered. F ollow-up with results/ adherence to plan/ continued education. Dana Monique APRN.[employer] CC SELF Colton Adams MD ([facility]) [address] [place] [address] Referring Provider: SELF [[id number]] Allergies As of Date: 04/02/2019 (No Known Allergies) Date Reviewed: 04/02/2019 Reviewed by: Ninfa Nielson Ma - Fully Assessed Reason for Visit: Established Patient [175] Primary Visit Diagnosis:Near syncope [R55] Other Visit Diagnoses:Dizziness and giddiness [R42] Mixed hyperlipidemia [E78.2] History of stroke [Z86.73] Uncontrolled type 2 diabetes with neuropathy ([facility]) [E11.40, E11.65] Hypertension, unspecified type [I10] Other hyperlipidemia [E78.49] Stenosis of right carotid artery [I65.21] Occlusion of left carotid artery [I65.22] Stenosis of left vertebral artery [I65.02] Subclavian arterial stenosis (HCC) [I77.1] Order(s): CAROTID BILAT [[id number]] Order #: [id number] [facility] L[facility] [SQLIPB] Order #: [id number] FUTURE Prescriptions as of 04/02/2019 Sig: FUROSEMIDE 40 MG TABLET Take 1 tablet by mouth once d* ASPIRIN 81 MG CHEWABLE TABLET Take 1 tablet by mouth once d* CLOPIDOGREL 75 MG TABLET Take 1 tablet by mouth once d* INSULIN GLARGINE (U-100) 100 * Inject 80 Units subcutaneousl * LISINOPRIL 5 MG TABLET Take 1 tablet by mouth once d* FEXOFENADINE 180 MG TABLET Take 180 mg by mouth once blake* ATORVASTATIN 80 MG TABLET Take 1 tablet by mouth once d* NITROGLYCERIN 0.4 MG SUBLINGU* Dissolve 1 tablet under the t * INSULIN ASPART (U-100) 100 UN* Inject 20 Units subcutaneousl * OXYCODONE-ACETAMINOPHEN 5 MG-* Take 1 tablet by mouth every * LIDOCAINE 5 % TOPICAL PATCH Apply 1 Patch as directed onc* GABAPENTIN 600 MG TABLET Take 600 mg by mouth three ti* Problem List As Of Date 04/02/2019 Noted Resolved Diarrhea [R19.7] Stroke (cerebrum) ([facility]) [I63.9] INVALID FOR* More... ICAO (internal carotid artery occlusion) [I65.2*INVALID FOR* Type 2 diabetes mellitus with diabetic polyneur*INVALID FOR* More... Cerebral infarction due to stenosis of right ca*INVALID FOR* Left carotid artery occlusion [I65.22] INVALID FOR* Essential hypertension [I10] INVALID FOR* More... Mixed hyperlipidemia [E78.2] INVALID FOR* More... AAA (abdominal aortic aneurysm) without rupture*INVALID FOR* More... Inferolateral NSTEMI (non-ST elevated myocardia*INVALID FOR* 03/01/2017 More... Left leg weakness [R29.898] INVALID FOR* Coronary artery disease involving coronary bypa*INVALID FOR* More... IBS (irritable bowel syndrome) [K58.9] INVALID FOR* Fibromyalgia [M79.7] INVALID FOR* SUMMARY INVALID FOR* More... Non-pressure chronic ulcer of right ankle, limi*INVALID FOR* More... Suspected obstructive sleep apnea syndrome [G47*INVALID FOR* More... Postural dizziness with presyncope [R42, R55] INVALID FOR* More... Obesity, Class I, BMI 30-34.9 [E66.9] INVALID FOR* More... Medications Discontinued During This Encounter metFORMIN (GLUCOPHAGE) 500 mg tablet 04/02/2019 Class: Historical Med Route: ORAL Sig: Take 500 mg by mouth twice daily with meals. Disc: Other COMPOUNDED PRESCRIPTION 1 Ea* 0 09/21/2016 04/02/2019 Class: Print RX Sig: Outpatient physical and occupational therapy evaluation and treatment for a diagnosis of recent ischemic stroke Disc: Course of therapy completed Disposition: Return for consult with Dr. Dee re: L vert zoraida nosis and L subclavian stenosis. Follow-up and Disposition History Recorded Encounter Status:Closed by DANA MONIQUE CNP on 04/05/19 office visit: diabetes follow up on 2017-04-10 Documentation of Done Invalid 04-10-2017 - [place] current medications Interpretation Code 04-10-2017 Infectious (procedure) Disease (07212) Protein mass conc Done Invalid 04-10-2017 - [place] Interpretation Code 04-10-2017 Infectious Disease (4 4691) office visit: new pt appt on 2017-03-20 Adult depression 12 Invalid 03-20-2017 - [place] screening Interpretation Code 03-20-2017 Endocrinology assessment (52322) Adult depression 0 Invalid 03-20-2017 - [place] screening Interpretation Code 03-20-2017 Endocrinology assessment (70722) Dietary management yes Invalid 03-20-2017 - [place] education, Interpretation Code 7 Endocrinology guidance, and (21184 ) counseling (procedure) Documentation of Done Invalid 03-20-2017 - [place] current Interpretation Code 03-20-2017 Endocrinology medications (38170) (procedure) Fall risk No Invalid 03-20-2017 - [place] assessment Interpretation Code 7 Endocrinology (84705) PHQ-9 quick 12 Invalid 03-20-2017 - [place] Infect[facility] depression Interpretation Code 7 Disease (86526) assessment panel [Reported.PHQ] Tobacco smoking Never Invalid 03-20-2017 - [place] [facility] status NHIS smoker Interpretation Code 03-20-20 17 Disease (81427) Tobacco use CPHS Never Invalid 03-20-2017 - [place] smoker Interpretation Code 03-20-2017 Endocrinology (66039) clinical lists update: preload on 2017-02-06 Left ventricular 60 % Invalid Interpretation 02-06-2017 - [place] [facility] Ejection fraction Code 02-06-2017 G [facility] (68213) chart maintenance o n 2016-09-23 Hemoglobin 9.5 % Invalid 09-23-2016 - [place] [facility] A1c/Hemoglobin.total mass Interpretation Code 09-23-2016 Group ([id number]) fraction (Bld) office visit on 01-08-03 Protein mass conc Done 08-12-2016 - 08-12-2016 [facility] (75335) office visit on 01-07-26 Tobacco smoking Never smoker 08-04-2016 - 08-04-2016 [facility] status [facility] ([id number]) lab report: bedside glucose on 2015-07-01 Glucose 207 70-110 mg/dL High 07-01-2015 - [place]inology 07-01-2015 (71968) Glucose mass conc 207 70-110 mg/dL High 07-01-2015 - [facility] 07-01-2015 (22100) replaced document: midmark ecg observati ons on 2015-06-25 EKG QRS axis -16 deg Invalid 06-25-2015 - [facility] Interpretation 06-25-2015 Grou p (93879) Code electrocardiogram Sinus Rhythm - Invalid 015 - [place] interpretation occasional Interpretation 5 Endocrinology ectopic Code (13448) ventricular beat -Nonspecific ST depression + Nonspecific T-abnormality -Nondiagnostic . ABNORMAL GE use only - for 388 ms Invalid 06-25-2015 - [place] [employer] import Interpretation 06-25-20 15 Endocrinology when terms are not Code ( 12297) otherwise specified Interpretation Sinus Rhythm - Invalid 06-25-2015 - [facility] occasional Interpretation 06-25-2015 Leila up (89515) ectopic Code ventricular beat -Nonspecific ST depression + Nonspecific T-abnormality -Nondiagnostic . ABNORMAL P [place] 53 deg Invalid 06-25-2015 - [place] [facility] Interpretation 06-25-2015 Grou [facility] (49205) Code P wave axis, 53 deg Invalid 06-25-2015 - [facility] electrocardiogram Interpretation Endocrinology Code (75479) [place] Interval 194 ms Invalid 06-25-2015 - [place] [facility] Interpretation 06-25-2015 Grou p (40688) Code [place] interval, 194 ms Invalid 06-25-2015 - [facility] electrocardiogram Interpretation Endocrinology Code (57341) Pulse (Heart Rate) 89 BPM /min Invalid 06-25-2015 - [place] Interpretation 06-25-2015 Endo crinology Code (88731) QRS axis, -16 deg Invalid 06-25-2015 - [place] electrocardiogram Interpretation Endocrinology Code (80038) QRS Duration 94 ms Invalid 06-25-2015 - [facility] Interpretation 06-25-2015 Grou p (68762) Code QRS duration, 94 ms Invalid 06-25-2015 - [place] electrocardiogram Interpretation Endocrinology Code (19656) QT Interval new path ms Invalid 06-25-2015 - [place] [facility] Interpretation 06-25-2015 Grou p (97054) Code QT interval, new path ms Invalid 06-25-2015 - [place] electrocardiogram Interpretation 015 Endocrinology Code (95750) QTc [place] 388 ms Invalid 06-25-2015 - [place] [facility] Interpretation 06-25-2015 Grou p (42760) Code T [place] 90 deg Invalid 06-25-2015 - [place] [facility] Interpretation 06-25-2015 Grou p (81309) Code T wave axis, 90 deg Invalid 06-25-2015 - [facility] electrocardiogram Interpretation 015 Endocrinology Code (32944) lab report: liver profile on 2015-06-22 Albumin mass 4.0 3.4-5.0 g/dL Invalid 06-22-2015 - [facility] conc Interpretation 06-22-2015 Grou p (62468) Code Alkaline 90 50-136 U/L Invalid 06-22-2015 - [place] phosphatase Interpretation 06-22-2015 En docrinology (ALP) Code (95386) ALP enzyme 90 50-136 U/L Invalid 06-22-2015 - [facility] act/vol (Bld) Interpretation 06-22-2015 Group (14306) Code ALT enzyme 80 12-78 U/L High 06-22-2015 - [facility] act/vol 06-22-2015 Group (44 741) AST enzyme 33 15-37 U/L Invalid 06-22-2015 - [place] [facility] act/vol Interpretation 06-22-2015 Grou p (61131) Code Bilirubin mass 0.70 0.20-1.00 mg/dL Invalid 06-22-2015 - [place] [facility] conc Interpretation 06-22-2015 Grou p (00054) Code Bilirubin.direc 0.12 0.00-0.30 mg/dL Invalid 06-22-2015 - [place] [facility] t mass conc Interpretation 06-22-2015 Gr oup (98335) Code Globulin 3.3 2.3-3.5 g/dL Invalid 06-22-2015 - [place] Interpretation 06-22-2015 Endo crinology Code (94569) Globulin mass 3.3 2.3-3.5 g/dL 06-22-2015 - [place] [facility] conc (S) 06-22-2015 Group (56 471) Protein mass 7.3 6.4-8.2 g/dL Invalid 06-22-2015 - [facility] conc Interpretation 06-22-2015 Grou p (68254) Code lab report: lipid profile on 2015-06-22 Cholesterol in 30 mg/dL Low 06-22-2015 - [place] HDL mass conc 06-22-2015 Group (59379) Cholesterol in 118 0-130 mg/dL Invalid 06-22-2015 - [place] LDL mass conc Interpretation Code 2014 Group (06978) Cholesterol mass 183 200 mg/dL Invalid 06-22-2015 - [place] [facility] conc Interpretation Code 06-22-2015 Group ([id number]) Lipoprotein.pre-b 35 5-40 mg/dL Invalid 06-22-2015 - [place] [facility] eta mass conc Interpretation Code 2014 Group (55840) Triglyceride mass 176 mg/dL Invalid 06-22-2015 - [place] conc Interpretation Code 06-22-2015 Group ([id number]) very low density 35 5-40 mg/dL Invalid 06-22-2015 - [place] lipoproteins Interpretation Code 015 Endocrinology (50488) office visit on 10-20-15 cardiac risk group C Invalid Interpretatio n 06-24-2014 - [place] [facility] Code 06-24-2014 Group (44 691) General cardiovascular N/A Invalid Interpret ation 06-24-2014 - [place] Heart disease 10Y risk [#] Code 4 Group (09661) [place] clinical lists update: preload on 2013-03-25 Anion gap 10 mmol/L Invalid 03-25-2013 - [place] Interpretation Code 03-25-2013 Endocrinology (32718) Anion gap 4 10 Invalid 03-25-2013 - [place] Infectious molar conc Interpretation Code 3 Disease (60635) Anion gap molar 10 mmol/L 03-25-2013 - [place] [facility] conc 03-25-2013 (99401) Chloride molar 104 mmol/L Invalid 03-25-2013 - [place] conc Interpretation Code 03-25-2013 (95075) CO2 26.0 mmol/L Invalid 03-25-2013 - [place] Interpretation Code 03-25-2013 Endocrinology (21244) CO2 ppres (BldV) 26.0 mmol/L Invalid 03-25-2013 - [facility] Interpretation Code 03-25-2013 (92990) Creatinine mass 0.9 mg/dL Invalid 03-25-2013 - [place] [facility] conc Interpretation Code 03-25-2013 (27337) Glucose 178 mg/dL High 03-25-2013 - [place] 03-25-2013 Endocrino logy (52022) Glucose fasting 178 mg/dL High 03-25-2013 - [place] [facility] mass conc 03-25-2013 (35362) Glucose fasting 178 mg/dL High 03-25-2013 - [place] Infect[facility] mass conc (BldV) 03-25-2013 Di sease (24297) Glucose mass 178 mg/dL High 03-25-2013 - [facility] conc 03-25-2013 (40339) Potassium molar 4.1 mmol/L Invalid 03-25-2013 - [place] [facility] conc Interpretation Code 03-25-2013 (95443) Sodium molar 140 mmol/L Invalid 03-25-2013 - [facility] conc Interpretation Code 03-25-2013 (39474) Urea nitrogen 21 mg/dL High 03-25-2013 - [place] [facility] mass conc 03-25-2013 (57856) replaced document: crp on 2013-03-08 CRP mass conc < 2.90 0.0-3.0 mg/L Normal 03-08-2012 - [facility] (66793) lab report: sed on 2013-03-08 ESR Velocity (Bld) 6 0-20 mm/h Normal 03-08-2012 - 03-08-2013 [facility] (22723) lab report: renal o n 2013-03-08 Calcium mass conc 9.1 8.5-10.1 mg/dL Normal 03-08-2013 - [facility] 03-08-2013 (88284) PHOS 2.6 2.5-4.9 mg/dL Normal 03-08-2013 - [facility] 03-08-2013 (87411) Phosphorus 2.6 2.5-4.9 mg/dL Normal 03-08-2013 - [place] [facility] Concentratation-Ran 03-08-2013 (01072) dom lab report: cbcd on 2013-03-08 Erythrocytes (RBC) 4.79 4.6-6.2 10*6/uL Normal 03-08-2013 - [place] 03-08-2013 Endocrino logy (10474) Hematocrit (HCT) 43.8 40-54 % Normal 03-08-2013 - [place] 03-08-2013 Endocrino logy (28999) Hematocrit Volume 43.8 40-54 % Normal 03-08-2013 - [facility] Fraction (Bld) 03-08-2013 (446 91) Hemoglobin mass 15.3 13.0-16.5 g/dL Normal 03-08-2013 - [place] [facility] conc (Bld) 03-08-2013 (44205) Platelets 132 150-450 10*3/mm3 Low 03-08-2013 - [place] 03-08-2013 Endocrino logy (55639) Platelets #/vol 132 150-450 10*3/mm3 Low 03-08-2013 - [place] [facility] (Bld) 03-08-2013 (30449) RBC #/vol (Bld) 4.79 4.6-6.2 10*6/uL Normal 03-08-2013 - [place] [facility] 03-08-2013 (86033) WBC #/vol (Bld) 5.8 4.4-11.0 10*9/L Normal 03-08-2013 - [place] [facility] 03-08-2013 ([id number]) WBC (Leukocytes) 5.8 4.4-11.0 10*9/L Normal 03-08-2013 - [place] 03-08-2013 Endocrino logy (16135) clinical lists update: preload on 2012-10-30 MCH 31.8 pg Invalid 10-30-2012 - [place] Interpretation Code 10-30-2012 Endocrinology (31953) MCH Entitic mass 31.8 pg 10-30-2012 - [place] (RBC) 10-30-2012 Group (44 691) MCV 89.4 fL Invalid 10-30-2012 - [place] Interpretation Code 10-30-2012 Endocrinology (21963) MCV Entitic 89.4 fL 10-30-2012 - [place] [facility] volume (RBC) 10-30-2012 Group (33998) Thyrotropin Qn 1.32 u[iU]/mL Invalid 10-30-2012 - [place] Interpretation Code 10-30-2012 Group (24451) Urea 21.0 mg/mg Invalid 10-30-2012 - [facility] nitrogen/Creatini Interpretation Code Group (70521) ne mass ratio clinical lists update: preload on 2012-09-19 basophils as 0.4 % Invalid 09-19-2012 - [facility] percent of blood Interpretation Code (51755) leukocytes, manual count eosinophils as 1.6 % Invalid 09-19-2012 - [facility] percent of blood Interpretation Code (49780) leukocytes, manual count Lymphocytes/100 18.9 % Low 09-19-2012 - [place] leukocytes 09-19-2012 Endocrin ology (71764) Lymphocytes/100 18.9 % Low 09-19-2012 - [place] WBC (Bld) 09-19-2012 (63259) Monocytes/100 8.1 % Invalid 09-19-2012 - [place] [facility] leukocytes Interpretation Code 3 Endocrinology (76197) Monocytes/100 WBC 8.1 % 09-19-2012 - [facility] (Bld) 09-19-2012 (89947) neutrophils, band 70.9 % High 09-19-2012 - [facility] form as percent of 09-19-2012 (41558) blood leukocytes, manual count Vital Signs Vital Sign Description Value / Unit Date Location The following section is limited to 5 en tries per type and includes entries from the following time range: [id number] - 2. BMI (Body Mass Index) 34.48 kg/m2 04-10-2017 - 04-10-2017 [place] [facility] (85235) BMI (Body Mass Index) 34.69 kg/m2 03-20-2017 - 03-20-2017 [facility] (08761) BMI (Body Mass Index) 33.77 kg/m2 08-12-2016 - 08-12-2016 [facility] (06411) Body Temperature 95.1 [degF] 03-19-2013 - 03-19-2013 [facility] (44682) BP Diastolic 75 mm[Hg] 04-10-2017 - 04-10-2017 [facility] (71160) BP Diastolic 70 mm[Hg] 03-20-2017 - 03-20-2017 [facility] (19426) BP Diastolic 60 mm[Hg] 08-12-2016 - 08-12-2016 [facility] (33085) BP Systolic 129 mm[Hg] 04-10-2017 - 04-10-2017 [facility] (70081) BP Systolic 153 mm[Hg] 03-20-2017 - 03-20-2017 [facility] (89427) BP Systolic 120 mm[Hg] 08-12-2016 - 08-12-2016 [facility] (80159) BSA (Body Surface Area) 2.39 m2 08-12-2016 - 08-12-2016 [facility] (05021) Heart rate 89 /min 06-25-2015 - 06-25-2015 [facility] (06022) Height 185.42 cm 04-10-2017 - 04-10-2017 [place] [facility] (02620) Height 185.42 cm 06-25-2015 - 06-25-2015 [facility] (37958) Pulse (Heart Rate) 88 /min 04-10-2017 - 04-10-2017 [place] [facility] (70127) Pulse (Heart Rate) 86 /min 03-20-2017 - 03-20-2017 [place] [facility] (57169) Pulse (Heart Rate) 80 /min 08-12-2016 - 08-12-2016 [facility] (12458) Respiratory Rate 18 /min 04-10-2017 - 04-10-2017 [facility] (36899) Respiratory Rate 20 /min 08-12-2016 - 08-12-2016 [facility] (91603) Weight 118.57 kg 04-10-2017 - 04-10-2017 [facility] (43375) Weight 119.3 kg 03-20-2017 - 03-20-2017 [place] (73120) Weight 116.12 kg 08-12-2016 - 08-12-2016 [facility] ([id number]) Procedures Procedure Name Date Provider Location Dietary management 03-20-2017 - [place] Infec tious education, guidance, and 03-20-2017 Disease (09486) counseling Follow Up Appt 6 months 08-12-2016 - MD Tremaine [facility] Infectious 08-12-2016 Disease (48112) [facility] 08-12-2016 - MD [place] Infect ious 08-12-2016 Disease (64362) Follow Up Appt 6 months 08-12-2016 - MD [facility] 08-12-2016 ([id number]) [facility] 08-12-2016 - MD [facility] 08-12-2016 ([id number]) Dietary management 08-04-2016 - [facility] education, guidance, and 08-04-2016 ([id number]) counseling Follow Up Appt 6 months 12-25-2015 - MD Tremaine Lynn r Infectious 12-25-2015 Disease ([id number]) MM 12-25-2015 - MD [facility] ious 12-25-2015 Disease ([id number]) Nuclear stress test 12-25-2015 - MD Jono Lynn In fectious -exercise 01-06-2016 Disease ([id number]) Follow Up Appt 6 months 12-25-2015 - MD [facility] 12-25-2015 ([id number]) MMM 12-25-2015 - MD [facility] 12-25-2015 ([id number]) Nuclear stress test 12-25-2015 - MD [facility] -exercise 01-06-2016 ([id number]) *Hepatic Function Panel 12-23-2015 - Alessia Manzanares michelle Infectious 01-31-2017 PA-C Disease ([id number]) Lipid 1996 panel - Serum 12-23-2015 - Natalya Manzanares Infectious or Plasma 01-31-2017 PA-C Disease ([id number]) *Hepatic Function Panel 12-23-2015 - Alessia [facility]zanares [facility] 01-31-2017 PA-C ([id number]) Lipid panel [AGGREGATE] 12-23-2015 - Yuko Graves [facility] 01-31-2017 PA-C ([id number]) Ecg routine ecg w/least 12 06-25-2015 - MD Joe [facility] Infectious lds w/i&r 06-25-2015 Disease ([id number]) Follow Up Appt 6 months 06-25-2015 - MD Tremaine [facility] 06-25-2015 Disease ([id number]) MM 06-25-2015 - MD [facility] 06-25-2015 Disease ([id number]) Preoperative 06-25-2015 Fuad Keysio us cardiovascular examination 02-06-2017 Disea se ([id number]) Electrocardiogram, 06-25-2015 - MD [facility] complete 06-25-2015 ([id number]) Follow Up Appt 6 months 06-25-2015 - Anuj Johnston MD [place] [facility] 06-25-2015 ([id number]) MMM 06-25-2015 - Anuj Johnston MD [facility] [facility] 06-25-2015 ([id number]) Preoperative 06-25-2015 - [facility] cardiovascular examination 02-06-2017 ([id number]) Ct thorax w/contrast 06-09-2015 - Henok Manzanares er Infectious material 12-03-2015 PA-C Disease ([id number]) Ct thorax w/dye 06-09-2015 - [facility] 12-03-2015 PA-C ([id number]) Radex wrist complete 05-07-2015 - Hazel Ca [place] Infect[facility] minimum 3 views 01-31-2017 Disease ([id number]) X-ray exam of wrist 05-07-2015 - [place] [facility] [place] [facility] 01-31-2017 ([id number]) *Hepatic Function Panel 01-06-2015 - Anuj Johnston MD [place] [facility] 06-22-2015 Disease ([id number]) Lipid 1996 panel - Serum 01-06-2015 - Anuj Johnston MD [place] [facility] or Plasma 06-22-2015 Disease ([id number]) *Hepatic Function Panel 01-06-2015 - Anuj Johnston MD [place] [facility] 06-22-2015 ([id number]) Lipid panel [AGGREGATE] 01-06-2015 - Anuj Johnston MD [facility] 06-22-2015 ([id number]) EMERGENCY MANAGEMENT COORDINATOR 12-24-2014 - [facility] Manzanares In fectious 12-24-2014 PA-C Disease ([id number]) Documentation of current 12-24-2014 - Natalya Manzanares [facility] Infectious medications 12-25-2014 PA-C Disease ([id number]) Follow Up Appt 6 months 12-24-2014 - Alessia Manzanares michelle Infectious 12-24-2014 PA-C Disease ([id number]) Follow Up Appt Other 12-24-2014 - Henok Manzanares er Infectious 12-24-2014 PA-C Disease ([id number]) Pedal pulse taking 12-24-2014 - Jono Manzanares Infectious 12-25-2014 PA-C Disease ([id number]) EMERGENCY MANAGEMENT COORDINATOR 12-24-2014 - [facility] 12-24-2014 PA-C ([id number]) Documentation of current 12-24-2014 - Yuko Graves, [place] [facility] medications 12-25-2014 PA-C ([id number]) Follow Up Appt 6 months 12-24-2014 - Yuko Graves [facility] 12-24-2014 PA-C ([id number]) Follow Up Appt Other 12-24-2014 - [facility] 12-24-2014 PA-C ([id number]) Pedal pulse taking 12-24-2014 - [facility] 12-25-2014 PA-C ([id number]) *Hepatic Function Panel 10-07-2014 - MD Tremaine Lynn r Infectious 12-24-2014 Disease ([id number]) *Hepatic Function Panel 10-07-2014 - MD [facility] 12-24-2014 ([id number]) *Hepatic Function Panel 06-24-2014 - MD Tremaine Lynn r Infectious 08-26-2014 Disease ([id number]) Follow Up Appt 6 months 06-24-2014 - MD Tremaine Lynn r Infectious 06-24-2014 Disease ([id number]) Lipid 1996 panel - Serum 06-24-2014 - MD Henok Lynn er Infectious or Plasma 08-26-2014 Disease ([id number]) MMM 06-24-2014 - MD [facility] ious 06-24-2014 Disease ([id number]) *Hepatic Function Panel 06-24-2014 - MD [facility] 08-26-2014 ([id number]) Follow Up Appt 6 months 06-24-2014 - MD [facility] 06-24-2014 ([id number]) Lipid panel [AGGREGATE] 06-24-2014 - MD [facility] 08-26-2014 ([id number]) [facility] 06-24-2014 - MD [facility] 06-24-2014 ([id number]) EMERGENCY MANAGEMENT COORDINATOR 12-20-2013 - [facility] Manzanares In fectious 12-20-2013 PA-C Disease ([id number]) Follow Up Appt 6 months 12-20-2013 - Alessia Manzanares michelle Infectious 12-20-2013 PA-C Disease ([id number]) EMERGENCY MANAGEMENT COORDINATOR 12-20-2013 - [facility] 12-20-2013 PA-C ([id number]) Follow Up Appt 6 months 12-20-2013 - Alessia Manzanares [facility] 12-20-2013 PA-C ([id number]) Follow Up Appt 6 months 05-28-2013 - MD Tremaine Lynn Infect[facility] 05-28-2013 Disease ([id number]) [facility] 05-28-2013 - MD Jono Lynn Infect ious 05-28-2013 Disease ([id number]) Follow Up Appt 6 months 05-28-2013 - MD [facility] 05-28-2013 ([id number]) [facility] 05-28-2013 - MD [facility] 05-28-2013 ([id number]) *CBC with Differential 03-08-2013 - Lashell J Signs MD [place] [facility] 01-31-2017 Disease ([id number]) *Renal Panel 03-08-2013 - Lashell J Signs MD [place] [facility] ious 03-15-2013 Disease ([id number]) C reactive protein 03-08-2013 - Lashell J Signs MD [place] [facility] ectious [Mass/volume] in Serum or 01-31-2017 Diseas e ([id number]) Plasma by High sensitivity method Erythrocyte sedimentation 03-08-2013 - Lashell J Signs MD [facility] Infectious rate 03-13-2013 Disease ([id number]) Radex foot complete 03-08-2013 - Lashell J Signs MD [place] In fectious minimum 3 views 01-31-2017 Disease ([id number]) *CBC with Differential 03-08-2013 - Lashell J Signs MD [place] [facility] 01-31-2017 ([id number]) *Renal Panel 03-08-2013 - [facility]hell [place] [facility] 03-15-2013 ([id number]) C reactive protein (hsCRP) 03-08-2013 - Lashell [facility] 01-31-2017 ([id number]) Erythrocyte sedimentation 03-08-2013 - Lashell Gardner Signs MD [facility] rate 03-13-2013 ([id number]) X-ray exam of foot 03-08-2013 - [facility] [place] [facility] 01-31-2017 ([id number]) *Hepatic Function Panel 01-31-2013 - Alessia Manzanares michelle Infectious 12-20-2013 PA-C Disease ([id number]) EMERGENCY MANAGEMENT COORDINATOR 01-31-2013 - [facility] Manzanares In fectious 12-09-2013 PA-C Disease ([id number]) Follow Up Appt 4 months 01-31-2013 - Alessia Manzanares michelle Infectious 12-09-2013 PA-C Disease ([id number]) Lipid 1996 panel - Serum 01-31-2013 - Natalya Manzanares omichelle Infectious or Plasma 12-20-2013 PA-C Disease ([id number]) *Hepatic Function Panel 01-31-2013 - Yuko Graves [facility] 12-20-2013 PA-C ([id number]) EMERGENCY MANAGEMENT COORDINATOR 01-31-2013 - [facility] 12-09-2013 PA-C ([id number]) Follow Up Appt 4 months 01-31-2013 - Yuko Graves [facility] 12-09-2013 PA-C ([id number]) Lipid panel [AGGREGATE] 01-31-2013 - Yuko Graves [facility] 12-20-2013 PA-C ([id number]) Plan of Treatment Plan Description Date Location *CMP Complete Metabolic *CMP Complete Metabolic 05-23-2017 - [facility] Infectious Panel Panel 04-25-2017 Disease ([id number]) *Microalbumin, Creatine *Microalbumin, Creatine 05-23-2017 - [facility] Infectious Ratio, rand urine Ratio, rand urine 04-25-2017 Disease ([id number]) *HgA1C *HgA1C 05-23-2017 - [place] [facility] 04-25-2017 Disease ([id number]) Appointment Appointment 05-23-2017 - [facility]io us 05-23-2017 Disease ([id number]) Appointment Appointment 04-03-2017 - [facility] Endocrin [facility] 04-03-2017 ([id number]) Appointment Appointment 02-08-2017 - [facility] 02-08-2017 ([id number]) *Hepatic Function Panel *Hepatic Function Panel 08-12-2016 - [place] [facility] 08-12-2016 Disease ([id number]) Follow Up Appt 6 months Follow Up Appt 6 months 08-12-2016 - [facility] Infectious 08-12-2016 Disease ([id number]) *Lipid Profile CC PCP *Lipid Profile CC PCP 08-12-2016 - [facility] 08-12-2016 Disease ([id number]) MMM MMM 08-12-2016 - [place] [facility] 08-12-2016 Disease ([id number]) *Hepatic Function Panel *Hepatic Function Panel 08-12-2016 - [facility] 08-12-2016 ([id number]) Follow Up Appt 6 months Follow Up Appt 6 months 08-12-2016 - [facility] 08-12-2016 ([id number]) *Lipid Profile CC PCP *Lipid Profile CC PCP 08-12-2016 - [facility] 08-12-2016 ([id number]) MMM MMM 08-12-2016 - [place] [facility] 08-12-2016 ([id number]) X-Ray, Elbow X-Ray, Elbow 08-04-2016 - [place] [facility] 08-04-2016 Disease ([id number]) X-Ray, Elbow X-Ray, Elbow 08-04-2016 - [facility] 08-04-2016 ([id number]) Follow Up Appt 6 months Follow Up Appt 6 months 12-25-2015 - [place] Infectious 12-25-2015 Disease ([id number]) MMM MMM 12-25-2015 - [facility] Infectio us 12-25-2015 Disease ([id number]) Nuclear stress test Nuclear stress test 12-25-2015 - [place] Infectious -exercise -exercise 12-25-2015 Disease ([id number]) Follow Up Appt 6 months Follow Up Appt 6 months 12-25-2015 - [facility] 12-25-2015 ([id number]) MMM MMM 12-25-2015 - [facility] 12-25-2015 ([id number]) Nuclear stress test Nuclear stress test 12-25-2015 - [facility] -exercise -exercise 12-25-2015 ([id number]) *Hepatic Function Panel *Hepatic Function Panel 12-23-2015 - [place] Infect[facility] 01-31-2017 Disease ([id number]) *Lipid Profile CC PCP *Lipid Profile CC PCP 12-23-2015 - [facility] 01-31-2017 Disease ([id number]) *Hepatic Function Panel *Hepatic Function Panel 12-23-2015 - [facility] 01-31-2017 ([id number]) *Lipid Profile CC PCP *Lipid Profile CC PCP 12-23-2015 - [facility] 01-31-2017 ([id number]) EKG (In office) EKG (In office) 06-25-2015 - [facility]io us 06-25-2015 Disease ([id number]) Follow Up Appt 6 months Follow Up Appt 6 months 06-25-2015 - [place] Infectious 06-25-2015 Disease ([id number]) MMM MMM 06-25-2015 - [facility]io us 06-25-2015 Disease ([id number]) EKG (In office) EKG (In office) 06-25-2015 - [facility] 06-25-2015 ([id number]) Follow Up Appt 6 months Follow Up Appt 6 months 06-25-2015 - [facility] 06-25-2015 ([id number]) MMM MMM 06-25-2015 - [facility] 06-25-2015 ([id number]) CT Chest with Contrast CT Chest with Contrast 06-09-2015 - [facility] Infectious 12-24-2014 Disease ([id number]) CT Chest with Contrast CT Chest with Contrast 06-09-2015 - [facility] 12-24-2014 ([id number]) X-Ray, Wrist X-Ray, Wrist 05-07-2015 - [place] [facility] 01-31-2017 Disease ([id number]) X-Ray, Wrist X-Ray, Wrist 05-07-2015 - [facility] 01-31-2017 ([id number]) *Hepatic Function Panel *Hepatic Function Panel 01-06-2015 - [place] [facility] 06-22-2015 Disease ([id number]) *Lipid Profile CC PCP *Lipid Profile CC PCP 01-06-2015 - [facility] 06-22-2015 Disease ([id number]) *Hepatic Function Panel *Hepatic Function Panel 01-06-2015 - [facility] 06-22-2015 ([id number]) *Lipid Profile CC PCP *Lipid Profile CC PCP 01-06-2015 - [facility] 06-22-2015 ([id number]) EMERGENCY MANAGEMENT COORDINATOR EMERGENCY MANAGEMENT COORDINATOR 12-24-2014 - [place] [facility] 12-24-2014 Disease ([id number]) Follow Up Appt 6 months Follow Up Appt 6 months 12-24-2014 - [facility] Infectious 12-24-2014 Disease ([id number]) Follow Up Appt Other Follow Up Appt Other 12-24-2014 - [place] [facility] 12-24-2014 Disease ([id number]) EMERGENCY MANAGEMENT COORDINATOR EMERGENCY MANAGEMENT COORDINATOR 12-24-2014 - [facility] 12-24-2014 ([id number]) Follow Up Appt 6 months Follow Up Appt 6 months 12-24-2014 - [place] [facility] 12-24-2014 ([id number]) Follow Up Appt Other Follow Up Appt Other 12-24-2014 - [place] [facility] 12-24-2014 ([id number]) *Hepatic Function Panel *Hepatic Function Panel 10-07-2014 - [facility] Infectious 12-24-2014 Disease ([id number]) *Hepatic Function Panel *Hepatic Function Panel 10-07-2014 - [facility] 12-24-2014 ([id number]) *Hepatic Function Panel *Hepatic Function Panel 06-24-2014 - [place] [facility] 08-26-2014 Disease ([id number]) Follow Up Appt 6 months Follow Up Appt 6 months 06-24-2014 - [facility] Infectious 06-24-2014 Disease ([id number]) *Lipid Profile CC PCP *Lipid Profile CC PCP 06-24-2014 - [facility] 08-26-2014 Disease ([id number]) MMM MMM 06-24-2014 - [place] [facility] 06-24-2014 Disease ([id number]) *Hepatic Function Panel *Hepatic Function Panel 06-24-2014 - [place] [facility] 08-26-2014 ([id number]) Follow Up Appt 6 months Follow Up Appt 6 months 06-24-2014 - [facility] 06-24-2014 ([id number]) *Lipid Profile CC PCP *Lipid Profile CC PCP 06-24-2014 - [facility] 08-26-2014 ([id number]) MMM MMM 06-24-2014 - [facility] 06-24-2014 ([id number]) EMERGENCY MANAGEMENT COORDINATOR EMERGENCY MANAGEMENT COORDINATOR 12-20-2013 - [facility] 12-20-2013 Disease ([id number]) Follow Up Appt 6 months Follow Up Appt 6 months 12-20-2013 - [facility] Infect[facility] 12-20-2013 Disease ([id number]) EMERGENCY MANAGEMENT COORDINATOR EMERGENCY MANAGEMENT COORDINATOR 12-20-2013 - [facility] 12-20-2013 ([id number]) Follow Up Appt 6 months Follow Up Appt 6 months 12-20-2013 - [place] [facility] 12-20-2013 ([id number]) Follow Up Appt 6 months Follow Up Appt 6 months 05-28-2013 - [place] Infectious 05-28-2013 Disease ([id number]) MMM MMM 05-28-2013 - [facility] 05-28-2013 Disease ([id number]) Follow Up Appt 6 months Follow Up Appt 6 months 05-28-2013 - [place] [facility] 05-28-2013 ([id number]) MMM MMM 05-28-2013 - [facility] 05-28-2013 ([id number]) *CBC with Differential *CBC with Differential 03-08-2013 - [place] [facility] 01-31-2017 Disease ([id number]) *Renal Panel *Renal Panel 03-08-2013 - [place] [facility] 03-08-2013 Disease ([id number]) *CRP - C-Reative *CRP - C-Reative 03-08-2013 - [facility] Infect ious Protein Protein 01-31-2017 Disease ([id number]) *Sedimentation Rate *Sedimentation Rate 03-08-2013 - [facility] Infect[facility] (ESR) (ESR) 03-12-2013 Disease ([id number]) X-Ray, Foot X-Ray, Foot 03-08-2013 - [facility] 01-31-2017 Disease ([id number]) *CBC with Differential *CBC with Differential 03-08-2013 - [facility] 01-31-2017 ([id number]) *Renal Panel *Renal Panel 03-08-2013 - [place] [facility] 03-08-2013 ([id number]) *CRP - C-Reative *CRP - C-Reative 03-08-2013 - [facility] Protein Protein 01-31-2017 ([id number]) *Sedimentation Rate *Sedimentation Rate 03-08-2013 - [facility] (ESR) (ESR) 03-12-2013 ([id number]) X-Ray, Foot X-Ray, Foot 03-08-2013 - [facility] 01-31-2017 ([id number]) *Hepatic Function Panel *Hepatic Function Panel 01-31-2013 - [place] [facility] 12-20-2013 Disease ([id number]) EMERGENCY MANAGEMENT COORDINATOR EMERGENCY MANAGEMENT COORDINATOR 01-31-2013 - [place] [facility] 12-09-2013 Disease ([id number]) Follow Up Appt 4 months Follow Up Appt 4 months 01-31-2013 - [place] Infect[facility] 12-09-2013 Disease ([id number]) *Lipid Profile CC PCP *Lipid Profile CC PCP 01-31-2013 - [facility] 12-20-2013 Disease ([id number]) *Hepatic Function Panel *Hepatic Function Panel 01-31-2013 - [place] [facility] 12-20-2013 ([id number]) EMERGENCY MANAGEMENT COORDINATOR EMERGENCY MANAGEMENT COORDINATOR 01-31-2013 - [place] [facility] 12-09-2013 ([id number]) Follow Up Appt 4 months Follow Up Appt 4 months 01-31-2013 - [place] [facility] 12-09-2013 ([id number]) *Lipid Profile CC PCP *Lipid Profile CC PCP 01-31-2013 - [facility] 12-20-2013 ([id number]) Patient education HYPERLIPIDEMIA, [facility] HYPERTENSION ([id number]) Summary Purpose Family History No Family History Records Found Advance Directives No Advanced Directives Records Found Additional Source Comments FOR RECORDS PERTAINING TO PATIENTS WHO ARE OR HAVE BEEN ENROLLED IN A CHEMICAL DEPENDENCY/SUBSTANCE ABUSE PROGRAM, SOME INFORMATION MAY BE OMITTED. This clinical summary was aggregated from multiple sources. Caution should be exercised in using it in the provision of clinical care. This summary normalizes information from multiple sources, and as a consequence, information in this document may materially changethe coding, format and clinical context of patient data. In addition, data may be omittedin some cases. CLINICAL DECISIONS SHOULD BE BASED ON THE PRIMARY CLINICAL RECORDS. [facility] provides no warranty or guarantee of the accuracy or completeness of information in this document. UNRECOGNIZED CONTENT PROVIDED BELOW FOR UNRECOGNIZED SECTION No Status Records Found UNRECOGNIZED CONTENT PROVIDED BELOW FOR UNRECOGNIZED SECTION INFORMATION SOURCE DATE CREATED AUTHOR AUTHOR'S ORGANIZATIO N 07/19/2019 [facility] [place]
== END ==
PROVIDERS: PCP Family Medicine; Referring Provider Family Medicine; Visit Provider Family Medicine
DX: R14.0 Abdominal distension (gaseous) (principal)
CPT/HCPCS: 78264; A9541

== ENCOUNTER → 2020-05-22 14:00 | Outpatient (CLI) | payer OTHER, SELFPAY ==
[2019-12-30 10:23] VITALS: BMI 33.5
--- OUTSIDE RECORDS SUMMARY | 2020-07-01 04:55 | XMS RPT_ITS | CCD ---
:1955 External Reference #:[id number] Author Organization [facility] Care Team Providers Name Role Phone Aysha HUGGINS, Jj Unavailable Donovan ROSARIO, Yoav Unavailable Unavailable Yoav Man LPN Unavailable Unavailable Deana LOUIE, A Unavailable Unavailable Allergies Reported Allergen Reaction(s) Severity Date of Onset Location atorvastatin Muscle aches Critical, Critical 01-12-2011 - - [facility] 02-18-2013 - (63552) nabumetone GI upset Critical, Critical 01-12-2011 - - [facility] 02-18-2013 - (48630) NKDA Mild, Mild 05-28-2013 - [facility] (08536) Medications Medication Name Sig Date Prescriber Location Acetaminophen / VICODIN 5-500 MG TABS 01-12-[address] [facility] HYDROcodone One tablet by mouth Group (4 4691) three times daily HYDROCODONE-ACETAMINO PHEN [id number] Carlita Carmona VICODIN 5-500 MG TABS One tablet by 01-12-2011 - 06-24-2014 [facility] mouth three times daily (70999) HYDROCODONE-ACETAMINOPHEN [id number] Anuj Johnston MD VICODIN 5-500 MG TABS One tablet by 01-12-2011 [facility] mouth three times daily (18365) HYDROCODONE-ACETAMINOPHEN 53118555729 Carlita Carmona VICODIN 5-500 MG TABS One tablet by 01-12-2011 - 06-24-2014 [facility] mouth three times daily (83344) HYDROCODONE-ACETAMINOPHEN [id number] Anuj Johnston MD VICODIN 5-500 MG TABS One tablet by 01-12-2011 [facility] mouth three times daily (82073) HYDROCODONE-ACETAMINOPHEN [id number] Carlita Carmona VICODIN 5-500 MG TABS One tablet by 01-12-2011 - 06-24-2014 [facility] mouth three times daily (58881) HYDROCODONE-ACETAMINOPHEN 64126755239 Anuj Johnston MD VICODIN 5-500 MG TABS One tablet by 01-12-2011 [facility] mouth three times daily (27659) HYDROCODONE-ACETAMINOPHEN 58582787109 Carlita aCrmona VICODIN 5-500 MG TABS One tablet by 01-12-2011 - 06-24-2014 [facility] mouth three times daily (72020) HYDROCODONE-ACETAMINOPHEN 10175814457 Anuj Johnston MD VICODIN 5-500 MG TABS One tablet by 01-12-2011 - 06-24-2014 [facility] mouth three times daily (76055) HYDROCODONE-ACETAMINOPHEN 70346669412 Anuj Johnston MD VICODIN 5-500 MG TABS One tablet by 01-12-2011 [facility] mouth three times daily (84592) HYDROCODONE-ACETAMINOPHEN 84371743194 Carlita Carmona Acetaminophen / PERCOCET 5-325 MG TABS One tablet 03-20-2017 [facility] oxyCODONE by mouth daily as needed Leila up (83132) OXYCODONE-ACETAMINOPHEN 99787715824 Huong Olmstead NP PERCOCET 5-325 MG TABS One tablet by 03-20-2017 [facility] mouth daily as needed (65610) OXYCODONE-ACETAMINOPHEN 62156074280 Huong Olmstead NP PERCOCET 5-325 MG TABS One tablet by 03-20-2017 [facility] mouth daily as needed (37657) OXYCODONE-ACETAMINOPHEN 74283475187 Huong Olmstead NP PERCOCET 5-325 MG TABS As needed 06-24-2014 - 06-25-2015 [facility] OXYCODONE-ACETAMINOPHEN (31969) [id number] Anuj Johnston MD PERCOCET 5-325 MG TABS As needed 06-24-2014 [facility] OXYCODONE-ACETAMINOPHEN (65029) [id number] Anuj Johnston MD PERCOCET 5-325 MG TABS As needed 06-24-2014 [facility] OXYCODONE-ACETAMINOPHEN (41590) [id number] [facility] PERCOCET 5-325 MG TABS As needed 06-24-2014 - 06-25-2015 [facility] (40346) OXYCODONE-ACETAMINOPHEN 88114538076 Anuj Johnston MD PERCOCET 5-325 MG TABS As needed 06-24-2014 [facility] OXYCODONE-ACETAMINOPHEN (01286) [id number] Anuj Johnston MD PERCOCET 5-325 MG TABS As needed 06-24-2014 [facility] OXYCODONE-ACETAMINOPHEN (64133) [id number] [facility] PERCOCET 5-325 MG TABS As needed 06-24-2014 - 06-25-2015 [facility] (28543) OXYCODONE-ACETAMINOPHEN 70151893177 Anuj Johnston MD Amoxicillin / AUGMENTIN 875-125 MG 02-18-2013 - [facility] Clavulanate TABS one tablet twice 03-20-2013 [facility] (59505) daily AMOXICILLIN-POT CLAVULANATE 20317021738 Lashell J Signs AUGMENTIN 875-125 MG TABS 02-18-2013 [facility] one tablet twice daily 03-20-2013 Group (44 691) AMOXICILLIN-POT CLAVULANATE 63997030768 Lashell J Signs AUGMENTIN 875-125 MG TABS 02-18-2013 - Jose S Izabela [facility] one tablet twice daily 03-20-2013 Group (44 691) AMOXICILLIN-POT CLAVULANATE 29043541216 Lashell J Signs AUGMENTIN 875-125 MG TABS 02-12-2013 - Lashell J Signs [facility] Two tablets by mouth daily 02-18-2013 Group (49370) AMOXICILLIN-POT CLAVULANATE 88355731824 Lashell J Signs AUGMENTIN 875-125 MG TABS 02-12-2013 - Lashell J Signs [facility] Two tablets by mouth daily 02-18-2013 Group (14239) AMOXICILLIN-POT CLAVULANATE 09685088804 Lashell J Signs AUGMENTIN 875-125 MG TABS 02-12-2013 - Lashell J Signs [facility] Two tablets by mouth daily 02-18-2013 Group (03067) AMOXICILLIN-POT CLAVULANATE 50403689305 Lashell J Signs Aspirin ASPIRIN EC 81 MG TBEC One 02-06-2017 [facility] (22359) tablet by mouth daily ASPIRIN 20703047421 Nany Leblanc RN atorvastatin LIPITOR 20 MG TABS One tablet 01-12-2011 [facility] (38604) by mouth daily ATORVASTATIN CALCIUM 85755156315 Carlita Carmona LIPITOR 40 MG TABS One tablet by mouth 01-12-2011 [facility] (86001) daily every evening ATORVASTATIN CALCIUM 99232441846 [facility] ATORVASTATIN CALCIUM 80 MG TABS One tablet 01-12-2011 [facility] (87658) by mouth daily ATORVASTATIN CALCIUM 91130850730 Huong Olmstead NP carvedilol CARVEDILOL 6.25 MG TABS One 08-12-2016 [facility] (01679) tablet by mouth twice daily CARVEDILOL 65829793155 Anuj Johnston MD clopidogrel PLAVIX 75 MG TABS One tablet 02-06-2017 [facility] (59458) by mouth daily CLOPIDOGREL BISULFATE 60847393799 Nany Leblanc RN DULoxetine CYMBALTA 20 MG CPEP One tablet 05-28-2013 [facility] (71589) by mouth daily DULOXETINE HCL 29592596407 [facility] [address] Roby CYMBALTA 60 MG CPEP One 05-28-2013 - 12-25-2015 [facility] (02892) tablet by mouth daily DULOXETINE HCL 39429330878 Anuj Johnston MD CYMBALTA 60 MG CPEP One 01-12-2011 - 01-31-2013 [facility] (50454) tablet by mouth twice daily DULOXETINE HCL 07441266881 Yuko Graves PA-C gabapentin NEURONTIN 600 MG TABS One tablet 01-12-2011 [facility] (03435) by mouth three times daily GABAPENTIN 65304124860 Yuko Graves PA-C NEURONTIN 600 MG TABS One tablet by mouth 01-12-2011 [facility] (37777) four times daily as needed GABAPENTIN 29779450673 Carlita Carmona hydroCHLOROthiazide HYDROCHLOROTHIAZIDE 25 MG 01-12-2011 - [facility] TABS One tablet by mouth 01-31-2013 [facility] (16051) daily HYDROCHLOROTHIAZIDE 74171777993 Yuko Graves PA-C Insulin Glargine BASAGLAR KWIKPEN 100 UNIT/ML 03-20-2017 [facility] SOPN 70 units at bed time Gr [facility] (95292) INSULIN GLARGINE 44942925000 Huong Olmstead NP BASAGLAR KWIKPEN 100 UNIT/ML SOPN 70 units 03-20-2017 [facility] (96507) at bed time INSULIN GLARGINE 86447969095 Huong Olmstead NP BASAGLAR KWIKPEN 100 UNIT/ML SOPN 70 units 03-20-2017 [facility] (29950) at bed time INSULIN GLARGINE 42175448112 Huong Olmstead NP LANTUS 100 UNIT/ML SOLN Take as directed 01-12-2011 [facility] (44357) INSULIN GLARGINE 11136552440 [facility] Ayalaorelscottie LANTUS 100 UNIT/ML SOLN Take as directed 01-12-2011 [facility] (19955) INSULIN GLARGINE 12840245598 [facility] Ayalasujatha LANTUS 100 UNIT/ML SOLN Take as directed 01-12-2011 [facility] (11075) INSULIN GLARGINE 46900824414 Carlita Hernandez Carmona LANTUS 100 UNIT/ML SOLN Take as directed 01-12-2011 [facility] (42897) INSULIN GLARGINE 66574371026 [facility] Ayalaorelli LANTUS 100 UNIT/ML SOLN Take as directed 01-12-2011 [facility] (52672) INSULIN GLARGINE 51431635679 Carlita Carmona LANTUS 100 UNIT/ML SOLN Take as directed 01-12-2011 [facility] (00268) INSULIN GLARGINE 00443843320 Mary Roby insulin, aspart, human NOVOLOG FLEXPEN 100 01-12-2011 [facility] UNIT/ML SOPN 20 units (36255 ) three times a day with meals INSULIN ASPART 09156874153 Huong Olmstead NP NOVOLOG FLEXPEN 100 UNIT/ML SOPN 20 units 01-12-2011 [facility] (42941) three times a day with meals INSULIN ASPART 50518459266 Huong Olmstead NP NOVOLOG FLEXPEN 100 UNIT/ML SOPN 20 units 01-12-2011 [facility] (29846) three times a day with meals INSULIN ASPART 23148083286 Huong Olmstead NP Lidocaine LIDODERM 5 % PTCH remove & reapply 02-06-2017 [facility] (64849) daily LIDOCAINE 66219673063 Nany Leblanc RN LIDODERM 5 % PT[facility] remove & reapply daily 02-06-2017 [facility] (10352) LIDOCAINE 57341501596 Nanyhenrik Leblanc RN LIDODERM 5 % PT[facility] remove & reapply daily 02-06-2017 [facility] (15380) LIDOCAINE 35829030580 Nany Leblanc RN Lisinopril LISINOPRIL 2.5 MG TABS One tablet 01-12-2011 [facility] (37738) by mouth daily LISINOPRIL 15563692259 Nany Leblanc RN LISINOPRIL 5 MG TABS One tablet by mouth 01-12-2011 [facility] (38541) daily LISINOPRIL 74670982151 Huong Olmstead NP Barlow Carbonate LITHIUM CARBONATE 01-12-2011 - [facility] 300 MG TABS One 01-31-2013 Group (85287 ) tablet by mouth four times daily LITHIUM CARBONATE 67978524900 Yuko Graves PA-C Metoprolol TOPROL XL 50 MG 08-12-2016 Anuj De La Cruz Hear t [id number] One tablet MD [facility] ( 80798) by mouth daily METOPROLOL SUCCINATE 39423136660 Anuj Johnston MD METOPROLOL TARTRATE 25 MG TABS 08-12-2016 [facility] 1/2 tablet by mouth twice (60485 ) daily METOPROLOL TARTRATE 96143846477 Nany Leblanc RN TOPROL XL 50 MG [id number] One 08-12-2016 Anuj Johnston MD [facility] tablet by mouth daily (17807) METOPROLOL SUCCINATE 93261464083 Anuj Johnston MD TOPROL XL 50 MG [id number] One 08-12-2016 Anuj Johnston MD [facility] tablet by mouth daily (19821) METOPROLOL SUCCINATE 58591657676 Anuj Johnston MD pioglitazone ACTOS 30 MG TABS One 01-12-2011 - [facility] tablet by mouth daily 02-06-2017 Group (69367) PIOGLITAZONE HCL 74407683152 Nany Leblanc RN Ramipril ALTACE 2.5 MG CAPS One 01-12-[address] [facility] tablet by mouth daily Group (95212) RAMIPRIL 52272288414 Anuj Johnston MD ALTACE 5 MG CAPS One tablet by 01-12-2011 Anuj Johnston MD [facility] mouth daily (25389) RAMIPRIL 58962726666 Anuj Johnston MD ALTACE 2.5 MG CAPS One tablet 01-12-2011 [facility] by mouth daily (91962 ) RAMIPRIL 47271770075 Anuj Johnston MD ALTACE 5 MG CAPS One tablet by 01-12-2011 Anuj Johnston MD [facility] mouth daily (90532) RAMIPRIL 12699213097 Anuj Johnston MD Regular Insulin, Human NOVOLIN R 100 UNIT/ML SOLN 01-12-2011 [facility] Take as directed (17978) INSULIN REGULAR HUMAN 76733970527 Mary Chicorelli NOVOLIN R 100 UNIT/ML SOLN Take as directed 01-12-2011 [facility] (14072) INSULIN REGULAR HUMAN 44664334967 Mary Chicorelli NOVOLIN R 100 UNIT/ML SOLN Take as directed 01-12-2011 [facility] (99710) INSULIN REGULAR HUMAN 86134221397 Carlita Hernandez Carmona NOVOLIN R 100 UNIT/ML SOLN Take as directed 01-12-2011 [facility] (90467) INSULIN REGULAR HUMAN 97262860945 Mary Chicorelli NOVOLIN R 100 UNIT/ML SOLN Take as directed 01-12-2011 [facility] (81841) INSULIN REGULAR HUMAN 47344187040 Carlita Carmona NOVOLIN R 100 UNIT/ML SOLN Take as directed 01-12-2011 [facility] (99593) INSULIN REGULAR HUMAN 04072483964 [facility] [address] [facility] Sertraline ZOLOFT 50 MG TABS One 01-12-2011 - 01-31-2013 [facility] tablet by mouth daily (53246 ) SERTRALINE HCL 06255435439 Carlita Carmona sildenafil VIAGRA 50 MG TABS Take as 01-12-2011 - 02-18-2013 [facility] Directed (52893) SILDENAFIL CITRATE 44990933249 Lashell Gallo MD topiramate TOPAMAX 25 MG TABS One 01-11-2013 - 12-20-2013 [facility] tablet by mouth daily (30071 ) TOPIRAMATE 69911040806 Jennifer Estrada RN venlafaxine VENLAFAXINE HCL ER 150 MG 05-28-2013 [facility] [id number] One tablet by (446 91) mouth daily VENLAFAXINE HCL 40722804903 Anuj Johnston MD VENLAFAXINE HCL 75 MG TABS Two 01-31-2013 - 02-18-2013 [facility] (56544) tablets by mouth twice daily VENLAFAXINE HCL 46040046980 Lashell Gallo MD Problems Active Problems Category Problem Name Status Date Location Acute cerebrovascular Cerebrovascular Active 02-06-2017 - [facility] disease accident (66218) Aortic; peripheral; 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, 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 Complication of device; Atherosclerosis of Active 01-12-2011 - [facility] implant 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 Active 01-12-2011 - [facility] and - 02-06-2017 [facility] other heart disease - (82883) Diabetes mellitus with Type 2 diabetes Active 01-12-2011 - [facility] complications mellitus with other (56122) diabetic ophthalmic complication Disorders of lipid Hyperlipidemia Active 01-12-2011 - [facility] metabolism (05815) Essential hypertension Hypertensive disorder Active - [facility] (19849) Heart valve disorders H/O: artificial heart Active 02-06-2017 - [facility] valve (39835) Infective arthritis and Acute osteomyelitis of Active - [facility] osteomyelitis (except lower leg (11037 ) that caused by tuberculosis or sexually transmitted disease) Mood disorders Depressive disorder Active 03-20-2017 - [facility] (05868) Other diseases of veins Chronic venous Active 03-19-2013 - [facility] and lymphatics hypertension (33124) (idiopathic) without complications of unspecified lower extremity Other nutritional; Overweight Active 04-25-2017 - [facility]fect[facility]; and Disease (4469 1) metabolic disorders Other nutritional; Body mass index (BMI) Active 05-28-2013 - [facility] endocrine; and 35.0-35.9, adult (68854) metabolic disorders Other nutritional; Body mass index (BMI) Active 05-28-2013 - [facility] endocrine; and 34.0-34.9, adult - 06-23-2015 (57246) metabolic disorders - Other nutritional; High density Active 05-23-2013 - [facility]; and lipoprotein deficiency (44 691) metabolic disorders Other nutritional; Body mass index (BMI) Active 05-23-2013 - [facility] endocrine; and 33.0-33.9, adult - 06-23-2015 (82811) metabolic disorders - Peripheral and visceral Peripheral vascular Active 03-19-2013 - [facility] atherosclerosis disease (07208) Unclassified Aftercare Active 07-13-2015 - [facility] (45738) Unclassified Long-term drug therapy Active 01-12-2011 - [facility] (60049) Unclassified 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 Unclassified Type 1 diabetes Active 01-12-2011 - [facility] mellitus with diabetic Endoc rinology peripheral angiopathy (36418 ) without gangrene Past or Other Problems Category Problem Name Status Date Location Other aftercare Other fci Completed 01-12-2011 - [facility] (current) drug therapy (4469 1) Other connective Tendinitis of extensor Completed 05-07-2015 - [facility] tissue disease tendon of hand (34884) Other connective Radial styloid Completed 05-07-2015 - [facility] tissue disease tenosynovitis (18984) Other connective Lateral epicondylitis, Com[facility]-07[facility] tissue disease left elbow (99868) Other non-traumatic Pain in wrist Completed 05-07-2015 - [facility] joint disorders (65428) Other non-traumatic Pain in elbow Completed 05-07-2015 - [facility] joint disorders (48915) Unclassified Preoperative Completed 06-25-2015 - [facility] cardiovascular - 02-06-2017 (15505) examination - Results Result Name Value Range Unit Interpretation Flag Date Location obsolete on 2019-07 OBSOLETE Refill (DALLINN) Normal 07-12-2019 [facility] TOMMY NGUYEN ([id number]) 1955 M [facility] Time Provider Department (31489) 07/12/19 KIRSTEN CUELLAR During your visit today, [...] Normal 06-27-2019 [facility] TOMMY NGUYEN ([id number]) 1955 [facility] Date Time Provider Department (55521) 06/27/19 KIRSTEN CUELLAR During your visit today, [...] physical on 2019-04-29 HISTORY PHYSICAL HNO ID: [id number] Normal 04-10 [facility]: [facility] ? ([id number]) Author Type: Physician Type: HANDP Filed: 04/29/2019 4:38 PM Note Text: [facility] Outpatient Visit Consultation is requested by: Dana Monique APRN.STATION INSTALLER [address] [facility] [address] PCP: Colton Adams MD ([facility]) [address] [place] [address]9907 CEREBROVASCULAR HISTORY Chief complaint: Carotid, vertebral and [...] - HEART SURGERY HX Triple bypas - NM ANESTH,KNEE JOINT; NOS Right - TONSILLECTOMY HX [...] file Gets together: Not on file Attends yarsanism service: Not on file Active member of [...] velocities identified and stenosis estimate in the [facility] t ICA is 1-29% by NASCET [...] or significant focal narrowi ng on intracranial ivrf-yj-kgsftk MRA. Proximal right cervical ICA stent limits evaluation of the stenosis but the vessel is patent distally with normal caliber. ?No other large vessel occlusion or significant foc al narrowing on extracranial wicy-yt-oclvjn MRA. 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 TEACHER MRI September 2016: Acute infarct with slight [...] MD April 29, 2019 CC Dana Monique APRN.STATION INSTALLER [address] [facility] [address] Colton Adams MD ([facility]) [address] [place] [address] 80729 cnov on 2019-04-29 CNOV Office Visit (NSEVMN) Normal 04-29-20 [facility] TOMMY NGUYEN ([id number]) 1955 M [place] Date Time Provider Department (10208) 04/29/19 10:30 AM CARLOS DEE During your visit today, we recorded the following informati on about you: Pulse Blood pressure Weight Height 86/minute 125/66 120.7 kg 1.905 m Carlos Dee MD 04/29/2019 4:38 PM Signed [facility] Outpatient Visit Consultation is requested by: Dana Monique APRN.STATION INSTALLER [address] [facility] [address] PCP: Colton Adams MD ([facility]) [address] [place] [address] CEREBROVASCULAR HISTORY Chief complaint: Carotid, vertebral and [...] >?70% b/l verteb ral stenosis. Transferred to [facility] with NIHSS 0 upon admission. [...] - HEART SURGERY HX Triple bypas - NM ANESTH,KNEE JOINT; NOS Right - TONSILLECTOMY HX [...] file Gets together: Not on file Attends yarsanism service: Not on file Active member of [...] or significant focal narrowing on intracran ial dliv-ly-arapyi MRA. Proximal right cervical ICA stent limits evaluation of the stenosis but the vessel is patent distally with normal caliber. ?No other la rge vessel occlusion or significant focal narrowing on extracranial rojg-ru-ebiecd MRA. Angiogram September 20 2016: Successful isadora [...] and [place] territories via a l eft HEARING THERAPY TEACHER MRI September 2016: Acute infarct with sligh [...] was requested to seek immediate medical at [facility] if new symptoms develop. All questions were answered. PLAN 1. Repeat carotid ultrasound in 3 months 2. Follow-up at the time of carotid ultrasound with Dr. Olga mack 3. Vascular risk factor control 4. Education provided Questions asked/ answered. F ollow-up with results/ adherence to plan/ continued education. SIGNATURE Carlos Dee MD April 29, 2019 CC Dana Monique APRN.STATION INSTALLER [address] [facility] [address] Colton Adams MD ([facility]) [address] [place] [address] Referring Provider: DANA MONIQUE [[id number]] Allergies As of Date: 04/29/2019 (No Known [...] Dizziness and giddiness [R42] Order(s):US CAROTID BILAT [[id number]] Order #: [id number] FUTU RE Prescriptions as of 04/29/2019 Sig: [...] * *Final Report* * * Normal 04-02-2019 [facility] [Mass/Vol] DATE OF EXAM: Apr 02 2019 11:04AM [facility] MNU 1077 - US CAROTID [place] / [place] PROCEDURE REASON: Dizziness and giddiness (46620) * * * * Physician Interpretation * [...] distal stent 87, distal to stent 81. Weekend Caregiver: MAO Transcribe Date/Time: Apr 02 2019 11:11A Dictated by : SUSAN LOOMIS MD This examination was interpreted and the report reviewed and electronically signed by: SUSAN LOOMIS MD on Apr 02 2019 3:04PM EST [id number] progress on 2019-03 PROGRESS HNO ID: [id number] Normal 04-02-2019 [facility] Author: Michelle Samuel Rdms [place] ([id number]) Service: Radiology Author Type: ? Type: Progress [...] PERIPHERAL IV DATA: Not applicable SIGNED BY: Michelle Samuel Rdms April 02, 2019 2:09 PM PROGRESS HNO ID: [id number] Normal 04-02-2019 [facility] Author: Dana Monique Osborne ([id number]) Service: ? Author Type: Nurse Practitioner Type: Progress Notes Filed: 04/05/2019 2:09 PM Note Text: [facility] Office Follow-up Consultation is requested by: SELF PCP: Colton Adams MD ([facility]) [address] [place] [address] CEREBROVASCULAR HISTORY History of Recent Event: Tommy [...] vis ion changes, HAs.?PCP directed him to [facility]. CTH NAP. Unable to tole rate [...] - HEART SURGERY HX Triple bypas - NM ANESTH,KNEE JOINT; NOS Right - TONSILLECTOMY HX [...] file Gets together: Not on file Attends yarsanism service: Not on file Active member of [...] Coordination: Rapid alternating movements symmetric bilatera lly. Deszhy-ct-wwxh, hfbu-by-bfqe without dysmetria bilaterally. Gait: Narrow-based, normal spaced [...] adherence to plan/ continued education. Dana Monique, COOKER SODA.STATION INSTALLER CC SELF Colton Adams MD () [address] [place] [address] lipid panel, basic on 2019-04-02 Cholesterol [Mass/Vol] 107 <200 mg/dL Normal 019 [facility] (52451) Comment: Result Comment: <200 mg/dL, Desirable 200-239 mg/dL, Borderline hi gh >239 mg/dL, High Performed By: #### LIPB #### [facility] [address] [place], [place] [address] Cholesterol in HDL [Mass/Vol] 33 >39 mg/dL Low 04-02-2019 [facility] (61345) Comment: Result Comment: 40-59 mg/dL, Acceptable >59 mg/dL, High: Negative ri sk factor for coronary heart disease <40 mg/dL, Low: Positive ris k factor for coronary heart disease Performed By: #### LIPB #### [facility] [address] [place], [place] [address] Cholesterol in LDL 54 <100 mg/dL Normal 04-02-2019 [facility] [Mass/Vol] [place] (55128) Comment: Result Comment: <100 mg/dL, Optimal 100-129 mg/dL, Near optimal/ above optimal 130-159 mg/dL, Borderline hi gh 160-189 mg/dL, High >189 mg/dL, Very high Secondary prevention optimal LDL Cholesterol levels are recommended to be < 70 mg/dL Performed By: #### LIPB #### [facility] [address] [place], [place] [address] Fasting Time 4 hrs Normal 04-02-2019 [facility] (59618) Comment: Performed By: #### LIPB #### [place] [address] LDL:HDL Ratio 1.64 <2.54 Normal 04-02-2019 [facility] (02701) Comment: Result Comment: Reference: 1. National Cholesterol Educ ation Program ATP III Guideline At-A-Glance Quick Desk Reference: National Heart, Lung, and Blood [place]. National Institutes of Health. 2001: NIH Publication No. 01-3305. 2. An International Atherosc lerosis Society position paper: global recommendations for the management of dyslipidemia: executive summary, Atherosclerosis. 2014: 232(2):410-413. Performed By: #### LIPB #### [place] [address] Non HDL Cholesterol 74 <130 mg/dL Normal 04-02-2019 [facility] (01592) Comment: Result Comment: <130 mg/dL, Optimal 130-159 mg/dL, Near optimal/ above optimal 160-189 mg/dL, Borderline hi gh 190-219 mg/dL, High >219 mg/dL, Very high Secondary prevention optimal non HDL Cholesterol levels are recommended to be < 100 mg/dL Performed By: #### LIPB #### [place] [address] TC:HDL Ratio 3.24 <5.10 Normal 04-02-2019 [facility] ([id number]) Comment: Performed By: #### LIPB #### [place] [address] Triglyceride [Mass/Vol] 98 <150 mg/dL Normal 2018 [facility] ([id number]) Comment: Result Comment: <150 mg/dL, Normal 150-199 mg/dL, Borderline hi gh 200-499 mg/dL, High >499 mg/dL, Very high Performed By: #### LIPB #### [address], [place] [address] VLDL Cholesterol 20 <30 mg/dL Normal 04-02-2019 [facility] ([id number]) Comment: Performed By: #### LIPB #### [facility] [address] [place], [place] [address] cnov on 2019-04-02 CNOV Office Visit (NECVS8) Normal 04-02-20 19 [facility] TOMMY NGUYEN ([id number]) 1955 M Helen Date Time Provider Department ([id number]) 04/02/19 10:00 AM DANA MONIQUE NECVS8 During your visit today, we recorded the following informati on about you: Pulse Respiration Blood pressure Weight 81/minute 14/minute 132/71 120.7 kg Height 1.905 m Dana Monique APRN.STATION INSTALLER 04/05/2019 2:09 PM Signed [facility] Office Follow-up Consultation is requested by: SELF PCP: Colton Adams MD ([facility]) [address] [place] [id number] CEREBROVASCULAR HISTORY History of Recent Event: Tommy [...] vision changes, HAs.?PCP d irected him to [facility]. CTH NAP. Unable to tolerate MRI. CTA showed L ICA occlus ion with reconstitution through L [facility] and >?75% stenosis R IC A as well as >?70% b/l vertebral stenosis. Transferred to [facility] and NIHSS 0 upon admi [...] - HEART SURGERY HX Triple bypas - NM ANESTH,KNEE JOINT; NOS Right - TONSILLECTOMY HX [...] file Gets together: Not on file Attends yarsanism service: Not on file Active member of [...] Coordination: Rapid alternating movements symmetric bilatera lly. [id number], vpyc-[id number] without dysmetria bilaterally. Gait: Narrow-based, normal spaced [...] adherence to plan/ continued education. Dana Monique APRN.STATION INSTALLER CC SELF Colton Adams MD ([facility]) [address] [place] [address] Referring Provider: SELF [[id number]] Allergies As of Date: 04/02/2019 (No Known Allergies) Date Reviewed: 04/02/2019 Reviewed by: Ninfa Nielson Ma - Fully Assessed Reason for Visit: Established Patient [175] Primary Visit Diagnosis:Near syncope [R55] Other Visit Diagnoses:Dizziness and giddiness [R42] Mixed hyperlipidemia [E78.2] History of stroke [Z86.73] Uncontrolled type 2 diabetes with neuropathy (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) [I63.9] INVALID FOR* More... ICAO (internal [...] 2017-04-10 Documentation of Done Invalid 04-10-2017 - [facility] current medications Interpretation Code 04-10-2017 Infectious (procedure) Disease (85731) Protein mass conc Done Invalid 04-10-2017 - [facility] Interpretation Code 04-10-2017 Infectious Disease (4 4691) office visit: new pt appt on 2017-03-20 Adult depression 12 Invalid 03-20-2017 - [facility] screening Interpretation Code 03-20-2017 Endocrinology assessment (63926) Adult depression 0 Invalid 03-20-2017 - [facility] screening Interpretation Code 03-20-2017 Endocrinology assessment (94198) Dietary management yes Invalid 03-20-2017 - [facility] education, Interpretation Code 7 Endocrinology guidance, and (69935 ) counseling (procedure) Documentation of Done Invalid 03-20-2017 - [facility] current Interpretation Code 03-20-2017 Endocrinology medications (00414) (procedure) Fall risk No Invalid 03-20-2017 - [facility] assessment Interpretation Code 7 Endocrinology (76588) PHQ-9 quick 12 Invalid 03-20-2017 - [facility] depression Interpretation Code 7 Disease (31622) assessment panel [Reported.PHQ] Tobacco smoking Never Invalid 03-20-2017 - [facility] status NHIS smoker Interpretation Code 03-20-20 17 Disease (62712) Tobacco use CPHS Never Invalid 03-20-2017 - [facility] smoker Interpretation Code 03-20-2017 Endocrinology (18563) clinical lists update: preload on 2017-02-06 Left ventricular 60 % Invalid Interpretation 02-06-2017 - [facility] Ejection fraction Code 02-06-2017 [facility] (30254) chart maintenance o n 2016-09-23 Hemoglobin 9.5 % Invalid 09-23-2016 - [facility] A1c/Hemoglobin.total mass Interpretation Code 09-23-2016 Group (80173) fraction (Bld) office visit on 01-08-03 Protein mass conc Done 08-12-2016 - 08-12-2016 [facility] (03241) office visit on 01-07-26 Tobacco smoking Never smoker 08-04-2016 - 08-04-2016 [facility] status [facility] (71975) lab report: bedside glucose on 2015-07-01 Glucose 207 70-110 mg/dL High 07-01-2015 - [facility] 07-01-2015 (24594) Glucose mass conc 207 70-110 mg/dL High 07-01-2015 - [facility] 07-01-2015 (32728) replaced document: midmark ecg observati ons on 2015-06-25 EKG QRS axis -16 deg Invalid 06-25-2015 [facility] Interpretation 06-25-2015 Grou p (99109) Code electrocardiogram Sinus Rhythm - Invalid 015 - [facility] interpretation occasional Interpretation 5 Endocrinology ectopic Code (04933) ventricular beat -Nonspecific ST depression + Nonspecific T-abnormality -Nondiagnostic . ABNORMAL GE use only - for 388 ms Invalid 06-25-2015 - [facility] [employer] import Interpretation 06-25-20 15 Endocrinology when terms are not Code ( 98507) otherwise specified Interpretation Sinus Rhythm - Invalid 06-25-2015 - [facility] occasional Interpretation 06-25-2015 Leila up (72049) ectopic Code ventricular beat -Nonspecific ST depression + Nonspecific T-abnormality -Nondiagnostic . ABNORMAL P [place] 53 deg Invalid 06-25-2015 - [facility] Interpretation 06-25-2015 Grou p (63169) Code P wave axis, 53 deg Invalid 06-25-2015 - [facility] electrocardiogram Interpretation Endocrinology Code (60471) NM Interval 194 ms Invalid 06-25-2015 - [facility] Interpretation 06-25-2015 Grou p (00280) Code NM interval, 194 ms Invalid 06-25-2015 - [facility] electrocardiogram Interpretation Endocrinology Code (78242) Pulse (Heart Rate) 89 BPM /min Invalid 06-25-2015 - [facility] Interpretation 06-25-2015 Endo crinology Code (88919) QRS axis, -16 deg Invalid 06-25-2015 - [facility] electrocardiogram Interpretation Endocrinology Code (27913) QRS Duration 94 ms Invalid 06-25-2015 - [facility] Interpretation 06-25-2015 Grou p (17592) Code QRS duration, 94 ms Invalid 06-25-2015 - [facility] electrocardiogram Interpretation Endocrinology Code (77817) QT Interval new path ms Invalid 06-25-2015 - [facility] Interpretation 06-25-2015 Grou p (02979) Code QT interval, new path ms Invalid 06-25-2015 - [facility] electrocardiogram Interpretation 015 Endocrinology Code (30273) QTc [place] 388 ms Invalid 06-25-2015 - [facility] Interpretation 06-25-2015 Grou p (26957) Code T [place] 90 deg Invalid 06-25-2015 - [facility] Interpretation 06-25-2015 Grou p (59790) Code T wave axis, 90 deg Invalid 06-25-2015 - [facility] electrocardiogram Interpretation 015 Endocrinology Code (99948) lab report: liver profile on 2015-06-22 Albumin mass 4.0 3.4-5.0 g/dL Invalid 06-22-2015 - [facility] conc Interpretation 06-22-2015 Grou p (66698) Code Alkaline 90 50-136 U/L Invalid 06-22-2015 - [facility] phosphatase Interpretation 06-22-2015 En docrinology (ALP) Code (62866) ALP enzyme 90 50-136 U/L Invalid 06-22-2015 - [facility] act/vol (Bld) Interpretation 06-22-2015 Group ([id number]) Code ALT enzyme 80 12-78 U/L High 06-22-2015 - [facility] act/vol 06-22-2015 Group (44 051) AST enzyme 33 15-37 U/L Invalid 06-22-2015 - [facility] act/vol Interpretation 06-22-2015 Grou p (70729) Code Bilirubin mass 0.70 0.20-1.00 mg/dL Invalid 06-22-2015 - [facility] conc Interpretation 06-22-2015 Grou p (52328) Code Bilirubin.direc 0.12 0.00-0.30 mg/dL Invalid 06-22-2015 - [facility] t mass conc Interpretation 06-22-2015 Gr oup (15978) Code Globulin 3.3 2.3-3.5 g/dL Invalid 06-22-2015 - [facility] Interpretation 06-22-2015 Endo crinology Code (43886) Globulin mass 3.3 2.3-3.5 g/dL 06-22-2015 - [facility] conc (S) 06-22-2015 Group (46 451) Protein mass 7.3 6.4-8.2 g/dL Invalid 06-22-2015 - [facility] conc Interpretation 06-22-2015 Grou p (73465) Code lab report: lipid profile on 2015-06-22 Cholesterol in 30 mg/dL Low 06-22-2015 - [facility] HDL mass conc 06-22-2015 Group (32900) Cholesterol in 118 0-130 mg/dL Invalid 06-22-2015 - [facility] LDL mass conc Interpretation Code 2014 Group (65570) Cholesterol mass 183 200 mg/dL Invalid 06-22-2015 - [facility] conc Interpretation Code 06-22-2015 Group (14532) Lipoprotein.pre-b 35 5-40 mg/dL Invalid 06-22-2015 - [facility] eta mass conc Interpretation Code 2014 Group (78821) Triglyceride mass 176 mg/dL Invalid 06-22-2015 - [facility] conc Interpretation Code 06-22-2015 Group (32215) very low density 35 5-40 mg/dL Invalid 06-22-2015 - [facility] lipoproteins Interpretation Code 015 Endocrinology (19486) office visit on 10-20-15 cardiac risk group C Invalid Interpretatio n 06-24-2014 - [facility] Code 06-24-2014 Group (44 691) General cardiovascular N/A Invalid Interpret ation 06-24-2014 - [facility] disease 10Y risk [#] Code 4 Group (57326) Melba.[facility]oni[facility] clinical lists update: preload on 2013-03-25 Anion gap 10 mmol/L Invalid 03-25-2013 - [facility] Interpretation Code 03-25-2013 Endocrinology (37361) Anion gap 4 10 Invalid 03-25-2013 - [facility] molar conc Interpretation Code 3 Disease (27631) Anion gap molar 10 mmol/L 03-25-2013 - [facility] conc 03-25-2013 (87612) Chloride molar 104 mmol/L Invalid 03-25-2013 - [facility] conc Interpretation Code 03-25-2013 (92441) CO2 26.0 mmol/L Invalid 03-25-2013 - [facility] Interpretation Code 03-25-2013 Endocrinology (91253) CO2 ppres (BldV) 26.0 mmol/L Invalid 03-25-2013 - [facility] Interpretation Code 03-25-2013 (68753) Creatinine mass 0.9 mg/dL Invalid 03-25-2013 - [facility] conc Interpretation Code 03-25-2013 (44612) Glucose 178 mg/dL High 03-25-2013 - [facility] 03-25-2013 Endocrino logy (40296) Glucose fasting 178 mg/dL High 03-25-2013 - [facility] mass conc 03-25-2013 (44116) Glucose fasting 178 mg/dL High 03-25-2013 - [facility] [place] Infectious mass conc (BldV) 03-25-2013 Di sease (56514) Glucose mass 178 mg/dL High 03-25-2013 - [facility] conc 03-25-2013 (43892) Potassium molar 4.1 mmol/L Invalid 03-25-2013 - [facility] conc Interpretation Code 03-25-2013 (90334) Sodium molar 140 mmol/L Invalid 03-25-2013 - [facility] conc Interpretation Code 03-25-2013 (08680) Urea nitrogen 21 mg/dL High 03-25-2013 - [facility] mass conc 03-25-2013 (90189) replaced document: crp on 2013-03-08 CRP mass conc < 2.90 0.0-3.0 mg/L Normal 03-08-2012 - [facility] (88256) lab report: sed on 2013-03-08 ESR Velocity (Bld) 6 0-20 mm/h Normal 03-08-2012 - 03-08-2013 [facility] (04613) lab report: renal o n 2013-03-08 Calcium mass conc 9.1 8.5-10.1 mg/dL Normal 03-08-2013 - [facility] 03-08-2013 ([id number]) PHOS 2.6 2.5-4.9 mg/dL Normal 03-08-2013 - [facility] 03-08-2013 (12295) Phosphorus 2.6 2.5-4.9 mg/dL Normal 03-08-2013 - [facility] Concentratation-Ran 03-08-2013 (81692) dom lab report: cbcd on 2013-03-08 Erythrocytes (RBC) 4.79 4.6-6.2 10*6/uL Normal 03-08-2013 - [facility] 03-08-2013 Endocrino logy (18232) Hematocrit (HCT) 43.8 40-54 % Normal 03-08-2013 - [facility] 03-08-2013 Endocrino logy (76051) Hematocrit Volume 43.8 40-54 % Normal 03-08-2013 - [facility] Fraction (Bld) 03-08-2013 (446 91) Hemoglobin mass 15.3 13.0-16.5 g/dL Normal 03-08-2013 - [facility] conc (Bld) 03-08-2013 (05624) Platelets 132 150-450 10*3/mm3 Low 03-08-2013 - [facility] 03-08-2013 Endocrino logy (87866) Platelets #/vol 132 150-450 10*3/mm3 Low 03-08-2013 - [facility] (Bld) 03-08-2013 (69820) RBC #/vol (Bld) 4.79 4.6-6.2 10*6/uL Normal 03-08-2013 - [facility] 03-08-2013 (81027) WBC #/vol (Bld) 5.8 4.4-11.0 10*9/L Normal 03-08-2013 - [facility] 03-08-2013 (88755) WBC (Leukocytes) 5.8 4.4-11.0 10*9/L Normal 03-08-2013 - [facility] 03-08-2013 Endocrino logy (71862) clinical lists update: preload on 2012-10-30 MCH 31.8 pg Invalid 10-30-2012 - [facility] Interpretation Code 10-30-2012 Endocrinology (67841) MCH Entitic mass 31.8 pg 10-30-2012 - [facility] (RBC) 10-30-2012 Group (44 691) MCV 89.4 fL Invalid 10-30-2012 - [facility] Interpretation Code 10-30-2012 Endocrinology (83281) MCV Entitic 89.4 fL 10-30-2012 - [facility] volume (RBC) 10-30-2012 Group (46787) Thyrotropin Qn 1.32 u[iU]/mL Invalid 10-30-2012 - [facility] Interpretation Code 10-30-2012 Group (13548) Urea 21.0 mg/mg Invalid 10-30-2012 - [facility] nitrogen/Creatini Interpretation Code Group (43891) ne mass ratio clinical lists update: preload on 2012-09-19 basophils as 0.4 % Invalid 09-19-2012 - [facility] percent of blood Interpretation Code (57605) leukocytes, manual count eosinophils as 1.6 % Invalid 09-19-2012 - [facility] percent of blood Interpretation Code (49752) leukocytes, manual count Lymphocytes/100 18.9 % Low 09-19-2012 - [place] [facility] leukocytes 09-19-2012 Endocrin ology (63355) Lymphocytes/100 18.9 % Low 09-19-2012 - [facility] WBC (Bld) 09-19-2012 (43586) Monocytes/100 8.1 % Invalid 09-19-2012 - [facility] leukocytes Interpretation Code 3 Endocrinology (32672) Monocytes/100 WBC 8.1 % 09-19-2012 - [facility] (Bld) 09-19-2012 (20674) neutrophils, band 70.9 % High 09-19-2012 - [facility] form as percent of 09-19-2012 (52267) blood leukocytes, manual count Vital Signs Vital Sign Description Value / Unit Date Location The following section is limited to 5 en tries per type and includes entries from the following time range: [id number] - 2. BMI (Body Mass Index) 34.48 kg/m2 04-10-2017 - 04-10-2017 [facility] (08976) BMI (Body Mass Index) 34.69 kg/m2 03-20-2017 - 03-20-2017 [facility] (76733) BMI (Body Mass Index) 33.77 kg/m2 08-12-2016 - 08-12-2016 [facility] (01948) Body Temperature 95.1 [degF] 03-19-2013 - 03-19-2013 [facility] (70699) BP Diastolic 75 mm[Hg] 04-10-2017 - 04-10-2017 [facility] (95885) BP Diastolic 70 mm[Hg] 03-20-2017 - 03-20-2017 [facility] (98514) BP Diastolic 60 mm[Hg] 08-12-2016 - 08-12-2016 [facility] (36480) BP Systolic 129 mm[Hg] 04-10-2017 - 04-10-2017 [facility] (22849) BP Systolic 153 mm[Hg] 03-20-2017 - 03-20-2017 [facility] (62079) BP Systolic 120 mm[Hg] 08-12-2016 - 08-12-2016 [facility] (51374) BSA (Body Surface Area) 2.39 m2 08-12-2016 - 08-12-2016 [facility] (97792) Heart rate 89 /min 06-25-2015 - 06-25-2015 [facility] (20828) Height 185.42 cm 04-10-2017 - 04-10-2017 [facility] (95975) Height 185.42 cm 06-25-2015 - 06-25-2015 [facility] (82227) Pulse (Heart Rate) 88 /min 04-10-2017 - 04-10-2017 [facility] (42758) Pulse (Heart Rate) 86 /min 03-20-2017 - 03-20-2017 [facility] (70236) Pulse (Heart Rate) 80 /min 08-12-2016 - 08-12-2016 [facility] (85428) Respiratory Rate 18 /min 04-10-2017 - 04-10-2017 [facility] (75013) Respiratory Rate 20 /min 08-12-2016 - 08-12-2016 [facility] (69919) Weight 118.57 kg 04-10-2017 - 04-10-2017 [facility] (22377) Weight 119.3 kg 03-20-2017 - 03-20-2017 [facility] (31474) Weight 116.12 kg 08-12-2016 - 08-12-2016 [facility] (70129) Procedures Procedure Name Date Provider Location Dietary management 03-20-2017 - [facility] Infec tious education, guidance, and 03-20-2017 Disease ([id number]) counseling Follow Up Appt 6 months 08-12-2016 - MD Tremaine Lynn Infectious 08-12-2016 Disease ([id number]) [facility] 08-12-2016 - MD [facility] Infect ious 08-12-2016 Disease (22970) Follow Up Appt 6 months 08-12-2016 - MD Tremaine Lynn [facility] 08-12-2016 ([id number]) [facility] 08-12-2016 - MD [facility] 08-12-2016 (73033) Dietary management 08-04-2016 - [facility] education, guidance, and 08-04-2016 (22227) counseling Follow Up Appt 6 months 12-25-2015 - MD Tremaine Lynn r Infectious 12-25-2015 Disease (48926) MM 12-25-2015 - MD [facility] Infect ious 12-25-2015 Disease (32389) Nuclear stress test 12-25-2015 - MD [facility] In fectious -exercise 01-06-2016 Disease ([id number]) Follow Up Appt 6 months 12-25-2015 - MD Tremaine Lynn r [facility] 12-25-2015 (46338) MMM 12-25-2015 - MD [facility] 12-25-2015 ([id number]) Nuclear stress test 12-25-2015 - MD [facility] art Group -exercise 01-06-2016 ([id number]) *Hepatic Function Panel 12-23-2015 - Alessia Manzanares [facility] Infectious 01-31-2017 PA-C Disease (72167) Lipid 1996 panel - Serum 12-23-2015 - Natalya Manzanares Infectious or Plasma 01-31-2017 PA-C Disease ([id number]) *Hepatic Function Panel 12-23-2015 - Alessia Manzanares [facility] 01-31-2017 PA-C ([id number]) Lipid panel [AGGREGATE] 12-23-2015 - Yuko Graves [facility] 01-31-2017 PA-C ([id number]) Ecg routine ecg w/least 12 06-25-2015 - MD Joe [facility] Infectious lds w/i&r 06-25-2015 Disease (40427) Follow Up Appt 6 months 06-25-2015 - MD Tremaine Lynn Infectious 06-25-2015 Disease (57039) MM 06-25-2015 - MD [facility] Infect ious 06-25-2015 Disease ([id number]) Preoperative 06-25-2015 Fuad Keysio us cardiovascular examination 02-06-2017 Disea se (66937) Electrocardiogram, 06-25-2015 - MD [facility] Group complete 06-25-2015 (46304) Follow Up Appt 6 months 06-25-2015 - Anuj Johnston MD [facility] 06-25-2015 (32847) MMM 06-25-2015 - Anuj Johnston MD [facility] 06-25-2015 ([id number]) Preoperative 06-25-2015 - [facility]up cardiovascular examination 02-06-2017 (4469 1) Ct thorax w/contrast 06-09-2015 - Henok Manzanares er Infectious material 12-03-2015 PA-C Disease (72307) Ct thorax w/dye 06-09-2015 - [facility] Manzanares [facility] art Group 12-03-2015 PA-C (31081) Radex wrist complete 05-07-2015 - Hazel Ca [facility] Infect[facility] minimum 3 views 01-31-2017 Disease ([id number]) X-ray exam of wrist 05-07-2015 - Hazel Ca [facility] 01-31-2017 ([id number]) *Hepatic Function Panel 01-06-2015 - Anuj Johnston MD [facility] 06-22-2015 Disease ([id number]) Lipid 1996 panel - Serum 01-06-2015 - Anuj Johnston MD [facility] Infectious or Plasma 06-22-2015 Disease ([id number]) *Hepatic Function Panel 01-06-2015 - Anuj Johnston MD [facility] 06-22-2015 ([id number]) Lipid panel [AGGREGATE] 01-06-2015 - Anuj Johnston MD [facility] 06-22-2015 ([id number]) 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 WORKER 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 12-24-2014 - [facility] Manzanares In fectious 12-24-2014 PA-C Disease (70426) Documentation of current 12-24-2014 - Natalya Manzanares [facility] Infectious medications 12-25-2014 PA-C Disease ([id number]) Follow Up Appt 6 months 12-24-2014 - Alessia Manzanares [facility] Infectious 12-24-2014 PA-C Disease ([id number]) Follow Up Appt Other 12-24-2014 - Henok Manzanares er Infectious 12-24-2014 PA-C Disease ([id number]) Pedal pulse taking 12-24-2014 - [facility] Manzanares Infectious 12-25-2014 PA-C Disease (57458) SOCIAL WORKER PSYCHIATRIC 12-24-2014 - [facility] Manzanares [facility] art Group 12-24-2014 PA-C ([id number]) Documentation of current 12-24-2014 - Yuko Graves, [facility] medications 12-25-2014 PA-C ([id number]) Follow Up Appt 6 months 12-24-2014 - Yuko Graves [facility] 12-24-2014 PA-C ([id number]) Follow Up Appt Other 12-24-2014 - [facility] 12-24-2014 PA-C ([id number]) Pedal pulse taking 12-24-2014 - [facility] 12-25-2014 PA-C ([id number]) *Hepatic Function Panel 10-07-2014 - MD Tremaine Lynn r Infectious 12-24-2014 Disease ([id number]) *Hepatic Function Panel 10-07-2014 - MD Tremaine Lynn r [facility] 12-24-2014 ([id number]) *Hepatic Function Panel 06-24-2014 - MD Tremaine Lynn r Infectious 08-26-2014 Disease ([id number]) Follow Up Appt 6 months 06-24-2014 - MD Tremaine Lynn r Infectious 06-24-2014 Disease (04398) Lipid 1996 panel - Serum 06-24-2014 - MD Henok Lynn er Infectious or Plasma 08-26-2014 Disease ([id number]) MMM 06-24-2014 - MD [facility] Infect ious 06-24-2014 Disease ([id number]) *Hepatic Function Panel 06-24-2014 - MD Tremaine Lynn r [facility] 08-26-2014 ([id number]) Follow Up Appt 6 months 06-24-2014 - MD rTemaine Lynn r [facility] 06-24-2014 ([id number]) Lipid panel [AGGREGATE] 06-24-2014 - MD Tremaine Lynn r [facility] 08-26-2014 ([id number]) [facility] 06-24-2014 - MD [facility] 06-24-2014 ([id number]) 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 WORKER 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 12-20-2013 - [facility] Manzanares In fectious 12-20-2013 PA-C Disease ([id number]) Follow Up Appt 6 months 12-20-2013 - Alessia Manzanares [facility] Infectious 12-20-2013 PA-C Disease ([id number]) SOCIAL WORKER PSYCHIATRIC 12-20-2013 - [facility] Group 12-20-2013 PA-C ([id number]) Follow Up Appt 6 months 12-20-2013 - Alessia Manzanares [facility] 12-20-2013 PA-C ([id number]) Follow Up Appt 6 months 05-28-2013 - MD Tremaine Lynn Infectious 05-28-2013 Disease ([id number]) [facility] 05-28-2013 - MD [facility] Infect ious 05-28-2013 Disease ([id number]) Follow Up Appt 6 months 05-28-2013 - MD Tremaine Lynn [facility] 05-28-2013 ([id number]) [facility] 05-28-2013 - MD [facility] 05-28-2013 ([id number]) *CBC with Differential 03-08-2013 - Lashell J Signs MD [place] Infectious 01-31-2017 Disease ([id number]) *Renal Panel 03-08-2013 - Lashell J Signs MD [place] Infect ious 03-15-2013 Disease ([id number]) C reactive protein 03-08-2013 - Lashell J Signs MD [place] Inf ectious [Mass/volume] in Serum or 01-31-2017 Diseas e (16551) Plasma by High sensitivity method Erythrocyte sedimentation 03-08-2013 - Lashell J Signs MD [facility] Infectious rate 03-13-2013 Disease ([id number]) Radex foot complete 03-08-2013 - Lashell J Signs MD [place] In fectious minimum 3 views 01-31-2017 Disease ([id number]) *CBC with Differential 03-08-2013 - Lashell J Signs MD [place] [facility] 01-31-2017 ([id number]) *Renal Panel 03-08-2013 - Lashell [place] [facility] 03-15-2013 ([id number]) C reactive protein (hsCRP) 03-08-2013 - Lashell [facility] 01-31-2017 ([id number]) Erythrocyte sedimentation 03-08-2013 - Lashell Gardner Signs MD [facility] rate 03-13-2013 ([id number]) X-ray exam of foot 03-08-2013 - Lashell [place] [facility] Group 01-31-2017 ([id number]) *Hepatic Function Panel 01-31-2013 - Alessia Manzanares [facility] Infectious 12-20-2013 PA-C Disease ([id number]) SOCIAL WORKER 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 01-31-2013 - [facility] Manzanares In fectious 12-09-2013 PA-C Disease ([id number]) Follow Up Appt 4 months 01-31-2013 - Alessia Manzanares [facility] Infectious 12-09-2013 PA-C Disease ([id number]) Lipid 1996 panel - Serum 01-31-2013 - Natalya Manzanares [facility] Infectious or Plasma 12-20-2013 PA-C Disease ([id number]) *Hepatic Function Panel 01-31-2013 - Yuko Graves [facility] 12-20-2013 PA-C ([id number]) SOCIAL WORKER PSYCHIATRIC 01-31-2013 - [facility] Manzanares [facility] art Group 12-09-2013 PA-C ([id number]) Follow Up Appt 4 months 01-31-2013 - Yuko Graves [facility] 12-09-2013 PA-C ([id number]) Lipid panel [AGGREGATE] 01-31-2013 - Yuko Graves [facility] 12-20-2013 PA-C ([id number]) Plan of Treatment Plan Description Date Location *CMP Complete Metabolic *CMP Complete Metabolic 05-23-2017 - [facility] Infectious Panel Panel 04-25-2017 Disease ([id number]) *Microalbumin, Creatine *Microalbumin, Creatine 05-23-2017 - [facility] Infectious Ratio, rand urine Ratio, rand urine 04-25-2017 Disease ([id number]) *HgA1C *HgA1C 05-23-2017 - [facility] Infectio us 04-25-2017 Disease ([id number]) Appointment Appointment 05-23-2017 - [facility] Infectio us 05-23-2017 Disease ([id number]) Appointment Appointment 04-03-2017 - [facility] Endocrin ology 04-03-2017 ([id number]) Appointment Appointment 02-08-2017 - [facility] 02-08-2017 ([id number]) *Hepatic Function Panel *Hepatic Function Panel 08-12-2016 - [facility] 08-12-2016 Disease ([id number]) Follow Up Appt 6 months Follow Up Appt 6 months 08-12-2016 - [facility] 08-12-2016 Disease ([id number]) *Lipid Profile CC PCP *Lipid Profile CC PCP 08-12-2016 - [facility] 08-12-2016 Disease ([id number]) MMM MMM 08-12-2016 - [facility] 08-12-2016 Disease ([id number]) *Hepatic Function Panel *Hepatic Function Panel 08-12-2016 - [facility] 08-12-2016 ([id number]) Follow Up Appt 6 months Follow Up Appt 6 months 08-12-2016 - [facility] 08-12-2016 ([id number]) *Lipid Profile CC PCP *Lipid Profile CC PCP 08-12-2016 - [facility] 08-12-2016 ([id number]) MMM MMM 08-12-2016 - [facility] 08-12-2016 ([id number]) X-Ray, Elbow X-Ray, Elbow 08-04-2016 - [facility] 08-04-2016 Disease ([id number]) X-Ray, Elbow X-Ray, Elbow 08-04-2016 - [facility] 08-04-2016 ([id number]) Follow Up Appt 6 months Follow Up Appt 6 months 12-25-2015 - [facility] 12-25-2015 Disease ([id number]) MMM MMM 12-25-2015 - [facility] 12-25-2015 Disease ([id number]) Nuclear stress test Nuclear stress test 12-25-2015 - [facility] -exercise -exercise 12-25-2015 Disease ([id number]) Follow Up Appt 6 months Follow Up Appt 6 months 12-25-2015 - [facility] 12-25-2015 ([id number]) MMM MMM 12-25-2015 - [facility] 12-25-2015 ([id number]) Nuclear stress test Nuclear stress test 12-25-2015 - [facility] -exercise -exercise 12-25-2015 ([id number]) *Hepatic Function Panel *Hepatic Function Panel 12-23-2015 - [facility] 01-31-2017 Disease ([id number]) *Lipid Profile CC PCP *Lipid Profile CC PCP 12-23-2015 - [facility] 01-31-2017 Disease ([id number]) *Hepatic Function Panel *Hepatic Function Panel 12-23-2015 - [facility] 01-31-2017 ([id number]) *Lipid Profile CC PCP *Lipid Profile CC PCP 12-23-2015 - [facility] 01-31-2017 ([id number]) EKG (In office) EKG (In office) 06-25-2015 - [facility] 06-25-2015 Disease ([id number]) Follow Up Appt 6 months Follow Up Appt 6 months 06-25-2015 - [facility] 06-25-2015 Disease ([id number]) MMM MMM 06-25-2015 - [facility] 06-25-2015 Disease ([id number]) EKG (In office) EKG (In office) 06-25-2015 - [facility] 06-25-2015 ([id number]) Follow Up Appt 6 months Follow Up Appt 6 months 06-25-2015 - [facility] 06-25-2015 ([id number]) MMM MMM 06-25-2015 - [facility] 06-25-2015 ([id number]) CT Chest with Contrast CT Chest with Contrast 06-09-2015 - [facility] 12-24-2014 Disease ([id number]) CT Chest with Contrast CT Chest with Contrast 06-09-2015 - [facility] 12-24-2014 ([id number]) X-Ray, Wrist X-Ray, Wrist 05-07-2015 - [facility] 01-31-2017 Disease ([id number]) X-Ray, Wrist X-Ray, Wrist 05-07-2015 - [facility] 01-31-2017 ([id number]) *Hepatic Function Panel *Hepatic Function Panel 01-06-2015 - [facility] 06-22-2015 Disease ([id number]) *Lipid Profile CC PCP *Lipid Profile CC PCP 01-06-2015 - [facility] 06-22-2015 Disease ([id number]) *Hepatic Function Panel *Hepatic Function Panel 01-06-2015 - [facility] 06-22-2015 ([id number]) *Lipid Profile CC PCP *Lipid Profile CC PCP 01-06-2015 - [facility] 06-22-2015 ([id number]) 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 WORKER 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 WORKER PSYCHIATRIC 12-24-2014 - [facility] 12-24-2014 Disease ([id number]) Follow Up Appt 6 months Follow Up Appt 6 months 12-24-2014 - [facility] 12-24-2014 Disease ([id number]) Follow Up Appt Other Follow Up Appt Other 12-24-2014 - [facility] 12-24-2014 Disease ([id number]) SOCIAL WORKER 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 WORKER PSYCHIATRIC 12-24-2014 - [facility] 12-24-2014 ([id number]) Follow Up Appt 6 months Follow Up Appt 6 months 12-24-2014 - [facility] 12-24-2014 ([id number]) Follow Up Appt Other Follow Up Appt Other 12-24-2014 - [facility] 12-24-2014 ([id number]) *Hepatic Function Panel *Hepatic Function Panel 10-07-2014 - [facility] 12-24-2014 Disease ([id number]) *Hepatic Function Panel *Hepatic Function Panel 10-07-2014 - [facility] 12-24-2014 ([id number]) *Hepatic Function Panel *Hepatic Function Panel 06-24-2014 - [facility] 08-26-2014 Disease ([id number]) Follow Up Appt 6 months Follow Up Appt 6 months 06-24-2014 - [facility] 06-24-2014 Disease ([id number]) *Lipid Profile CC PCP *Lipid Profile CC PCP 06-24-2014 - [facility] 08-26-2014 Disease ([id number]) MMM MMM 06-24-2014 - [facility] 06-24-2014 Disease ([id number]) *Hepatic Function Panel *Hepatic Function Panel 06-24-2014 - [facility] 08-26-2014 ([id number]) Follow Up Appt 6 months Follow Up Appt 6 months 06-24-2014 - [facility] 06-24-2014 ([id number]) *Lipid Profile CC PCP *Lipid Profile CC PCP 06-24-2014 - [facility] 08-26-2014 ([id number]) MMM MMM 06-24-2014 - [facility] 06-24-2014 ([id number]) SOCIAL WORKER 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 WORKER PSYCHIATRIC 12-20-2013 - [facility] 12-20-2013 Disease ([id number]) Follow Up Appt 6 months Follow Up Appt 6 months 12-20-2013 - [facility] 12-20-2013 Disease ([id number]) SOCIAL WORKER 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 WORKER PSYCHIATRIC 12-20-2013 - [facility] 12-20-2013 ([id number]) Follow Up Appt 6 months Follow Up Appt 6 months 12-20-2013 - [facility] 12-20-2013 ([id number]) Follow Up Appt 6 months Follow Up Appt 6 months 05-28-2013 - [facility] 05-28-2013 Disease ([id number]) MMM MMM 05-28-2013 - [facility] 05-28-2013 Disease ([id number]) Follow Up Appt 6 months Follow Up Appt 6 months 05-28-2013 - [facility] 05-28-2013 ([id number]) MMM MMM 05-28-2013 - [facility] 05-28-2013 ([id number]) *CBC with Differential *CBC with Differential 03-08-2013 - [facility] 01-31-2017 Disease ([id number]) *Renal Panel *Renal Panel 03-08-2013 - [facility] 03-08-2013 Disease ([id number]) *CRP - C-Reative *CRP - C-Reative 03-08-2013 - [facility] Protein Protein 01-31-2017 Disease ([id number]) *Sedimentation Rate *Sedimentation Rate 03-08-2013 - [facility] (ESR) (ESR) 03-12-2013 Disease ([id number]) X-Ray, Foot X-Ray, Foot 03-08-2013 - [facility] 01-31-2017 Disease ([id number]) *CBC with Differential *CBC with Differential 03-08-2013 - [facility] 01-31-2017 ([id number]) *Renal Panel *Renal Panel 03-08-2013 - [facility] 03-08-2013 ([id number]) *CRP - C-Reative *CRP - C-Reative 03-08-2013 - [facility] Protein Protein 01-31-2017 ([id number]) *Sedimentation Rate *Sedimentation Rate 03-08-2013 - [facility] (ESR) (ESR) 03-12-2013 ([id number]) X-Ray, Foot X-Ray, Foot 03-08-2013 - [facility] 01-31-2017 ([id number]) *Hepatic Function Panel *Hepatic Function Panel 01-31-2013 - [facility] 12-20-2013 Disease ([id number]) SOCIAL WORKER 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 WORKER PSYCHIATRIC 01-31-2013 - [facility] 12-09-2013 Disease ([id number]) Follow Up Appt 4 months Follow Up Appt 4 months 01-31-2013 - [facility] 12-09-2013 Disease ([id number]) *Lipid Profile CC PCP *Lipid Profile CC PCP 01-31-2013 - [facility] 12-20-2013 Disease ([id number]) *Hepatic Function Panel *Hepatic Function Panel 01-31-2013 - [facility] 12-20-2013 ([id number]) SOCIAL WORKER 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 WORKER PSYCHIATRIC 01-31-2013 - [facility] 12-09-2013 ([id number]) Follow Up Appt 4 months Follow Up Appt 4 months 01-31-2013 - [facility] 12-09-2013 ([id number]) *Lipid Profile CC PCP *Lipid Profile CC PCP 01-31-2013 - [facility] 12-20-2013 ([id number]) Patient education HYPERLIPIDEMIA, [facility] HYPERTENSION ([id number]) Summary Purpose Family History No Family History [...] BASED ON THE PRIMARY CLINICAL RECORDS. [facility] provides no warranty or guarantee of the accuracy or completeness of information in this document. UNRECOGNIZED CONTENT PROVIDED BELOW FOR UNRECOGNIZED SECTION No Status Records Found UNRECOGNIZED CONTENT PROVIDED BELOW FOR UNRECOGNIZED SECTION INFORMATION SOURCE DATE CREATED AUTHOR AUTHOR'S ORGANIZATIO N 07/19/2019 [facility]
== END ==
PROVIDERS: PCP Family Medicine; Referring Provider Family Medicine; Visit Provider Nurse Practitioner Family
DX: R50.9 Fever, unspecified (principal)
CPT/HCPCS: 87633; 87635; U0003

== ENCOUNTER → 2020-08-24 15:16 | Outpatient (CLI) | payer OTHER, SELFPAY ==
[2019-12-30 10:23] VITALS: BMI 33.5
== END ==
PROVIDERS: PCP Family Medicine; Referring Provider Internal Medicine Gastroenterology; Visit Provider Internal Medicine Gastroenterology
DX: Z11.59 Encounter for screening for other viral diseases (principal)
CPT/HCPCS: 87635; C9803; U0005; U0003

== ENCOUNTER → 2020-08-27 08:53 | Outpatient (CLI) | payer OTHER, SELFPAY ==
[2019-12-30 10:23] VITALS: BMI 33.5
--- NOTE | 2020-08-27 09:10 | RAD_ITS ---
STUDY: X-RAY - ESOPHAGUS (BARIUM SWALLOW) WITH FLUOROSCOPY REASON FOR EXAM: Male, 65 years old. Lump feeling prox. Esophagus x 3mos. pain stomach. gerd. 3x bypass ''95 carotid stent. TECHNIQUE: 15 view(s) of the esophagus were obtained following swallowing of barium. FLUOROSCOPY TIME (if supplied): (0:21) minutes/seconds COMPARISON: None. FINDINGS: There is no demonstrated esophageal foreign body. There is no demonstrated stricture or mucosal abnormality. Normal gastroesophageal junction, without a demonstrated hiatal hernia. The patient ingested a 12 mm tablet of barium without any difficulty. There is atherosclerotic calcification of the aortic arch with tortuosity of the descending aorta. Normal visualized pulmonary parenchyma. Normal visualized osseous structures of the thorax. RAD/Esophagus Single Contrast IMPRESSION: Normal plain film x-ray examination (barium swallow) of the esophagus. Electronically Signed: Robbin Alanis MD at 13:22 EST , Service support ,
== END ==
PROVIDERS: PCP Family Medicine; Referring Provider Family Medicine; Visit Provider Family Medicine
DX: K31.84 Gastroparesis (principal)
CPT/HCPCS: 74220

== ENCOUNTER → 2020-11-26 09:18 | Outpatient (CLI) | payer OTHER, SELFPAY ==
[2019-12-30 10:23] VITALS: BMI 33.5
[2020-11-26 10:06] LABS: Absolute Lymphocyte Count 1.48 X10^3/uL (0.83-4.51); Absolute Neutrophil Count 3.4 X10^3/uL (2.0-7.7); Basophil# 0.05 X10^3/uL; Basophil% 0.9 % (0-1); Eosinophil# 0.23 X10^3/uL; Hematocrit 50.7 % (40-54); Hemoglobin 17.3 g/dL (13.0-16.5); Lymphocyte # 1.48 X10^3/ul (0.83-4.51); Lymphocyte % 25.9 % (19-41); Mean Corp Hgb Conc 34.1 g/dL (32-36); Mean Corpuscular Hgb 31.9 pg (27.0-32.0); Mean Corpuscular Volume 93.4 fL (80-94); Mean Platelet Vol. 11.3 fl (6.2-12.0); Monocyte# 0.51 X10^3/uL; Monocyte% 8.9 % (0-10); NRBC Flagged by Analyzer 0 % (0-5); Neutrophil # 3.42 X10^3/uL (2.7-7.7); Neutrophil % 59.8 % (47-70); Platelet Count 149 K/mm3 (150-450); RBC Distribution Width SD 44.1 fl (35.1-43.9); Red Blood Count 5.43 M/mm3 (4.6-6.2); White Blood Count 5.7 K/mm3 (4.4-11.0)
[2020-11-26 10:44] LABS: ALB/GLOB Ratio 1.3 RATIO (0.9-2.4); AST(SGOT) 45 U/L (15-37); Alanine Aminotransfer ALT/SGPT 76 U/L (16-61); Albumin, Serum 3.9 g/dL (3.2-5.0); Alkaline Phosphatase 137 U/L (45-117); Anion Gap 4 (5-15); BUN 15 mg/dL (7-18); Calcium,Total 9.3 mg/dL (8.5-10.1); Chloride 105 mmol/L (98-107); Cholesterol 221 mg/dL (200); EST Glomerular Filtration Rate 80 mL/min (>60); Est Glom Filt Rate - Afr Amer 97 mL/min (>60); Globulin 3.1 g/dL (2.2-4.2); Glucose 150 mg/dL (74-106); High Density Lipoprotein 31 mg/dL; Potassium 3.8 mmol/L (3.5-5.1); Sodium Level 138 mmol/L (136-145); Thyroid Stim Hormone (TSH) 2.98 uIU/mL (0.358-3.74); Triglycerides 221 mg/dL; Very Low Density Lipoprotein 44 mg/dL (5-40)
[2020-11-26 12:43] LABS: Microalbumin,Random Urine 25.8 mg/L (NO RANGE EST.); Microalbumin:Creatinine Ratio 15.7 mg/g CRE (<30 mg/g CRE)
== END ==
PROVIDERS: PCP Family Medicine; Referring Provider Family Medicine; Visit Provider Family Medicine
DX: E11.65 Type 2 diabetes mellitus with hyperglycemia (principal)
CPT/HCPCS: 36415; 80053; 80061; 82043; 82570; 84443; 85025

== ENCOUNTER → 2021-05-18 18:14 | Outpatient (CLI) | payer OTHER, SELFPAY | PROVIDERS: Visit Provider Family Medicine | DX: J01.90 Acute sinusitis, unspecified (principal) | CPT/HCPCS: 87635; U0005; U0003 ==

== ENCOUNTER 2021-10-25 22:25 | Emergency (ER) | payer OTHER, SELFPAY ==
[2021-10-25 22:26] VITALS: BP 194/96; PULSE 63; RESP 17; TEMP 35.9; O2SAT 99; BMI 31.7
--- NOTE | 2021-10-25 23:18 | ED.VIS.GI ---
HPI HPI - GI History of Present Illness Chief Complaint: Abd Pain Informant: patient and spouse/S.O. Abdominal Pain/Flank Pain Onset: Today Context: Gradual Onset Timing: Continuous Quality: Aching Location: Diffuse Current Severity: Moderate Maximum Severity: Severe Worsened by: Nothing Relieved by: Nothing Nausea/Vomiting/Emesis GI Symptom: Positive for Nausea and Vomiting Onset: Today Severity: Mild Diarrhea/Melena/Hematochezia GI Symptom: Negative for Diarrhea, Melena and Hematochezia Associated Symptoms Associated Symptoms: Negative for Dysuria, Frequency, Hematuria and Urgency Narrative Narrative: 66-year-old male prior appendectomy many years ago. Said he had a spaghetti dinner today around 3:00 and then start developing epigastric abdominal pain that progressed to diffuse abdominal pain. Associated nausea with only mild vomiting. No hematemesis. No melena. He had a small bowel movement this morning. Denies any fever or chills. Denies any dysuria. Prior similar symptoms: No Recent Illness/Hospitalization: No PFSH PFSH Medical History (Updated 10/26/21 @ 01:[address] Patrick Mar MD) Allergies Arthritis Diabetes Difficulty balancing Gastric paresis GERD (gastroesophageal reflux disease) H/O emotional problems Heart disease History of back problems HTN (hypertension) Irritable bowel disease Kidney stones Neuropathy Stroke Vascular disease Home Medications gabapentin 600 mg PO BIDCM PRN 05/31/14 [History Last Taken 02/25/17] aspirin 81 mg PO DAILY@0800 02/25/17 [History Last Taken 02/25/17] atorvastatin 40 mg PO QHS 02/25/17 [History Last Taken 02/24/17] clopidogrel 75 mg PO DAILY 02/25/17 [History Last Taken 02/25/17] insulin glargine 70 unit SQ QHS 02/25/17 [History Last Taken 02/24/17] lisinopril 5 mg PO DAILY 02/25/17 [History Last Taken 02/25/17] metoprolol tartrate 12.5 mg PO BID 02/25/17 [History Last Taken 02/25/17] oxycodone-acetaminophen 1 tab PO Q8H PRN PRN 02/25/17 [History Last Taken 02/24/17] cyclobenzaprine 10 mg tablet 10 mg PO TID 11/29/19 [History Last Taken Unknown] insulin aspart U-100 100 unit/mL (3 mL) subcutaneous pen 25 unit SC TID ml 11/29/19 [History Last Taken Unknown] lidocaine 5 % topical patch 1 patch TOPICAL DAILY 11/29/19 [History Last Taken Unknown] ondansetron 4 mg PO Q6H PRN #7 tab 10/26/21 [Rx Last Taken Unknown] Allergy/AdvReac Type Severity Reaction Status Date / Time aripiprazole [From Abilify] Allergy Mild FELT POORLY Verified 10/25/21 22:30 atorvastatin [From Lipitor] Allergy muscle Verified 10/25/21 22:30 aches nabumetone [From Relafen] Allergy GI Verified 10/25/21 22:30 Family History Other Heart disease Surgical History H/O knee surgery Stented coronary artery Social History Smoking Status: Never smoker alcohol intake: never ROS ROS ED ROS Narrative Abdominal pain. Nausea and vomiting. Review of Systems ROS Unobtainable: Denies due to encephalopathy Constitutional Constitutional ED: Denies fever(s) ENT ENT ED: Denies ear pain Cardiovascular Cardiovascular: Denies chest pain Respiratory/Chest Respiratory/Chest: Denies dyspnea Gastrointestinal Gastrointestinal: Reports abdominal pain, nausea and vomiting; Denies constipation, diarrhea or melena Genitourinary Genitourinary ED: Denies dysuria Musculoskeletal Musculoskeletal: Denies myalgias Integumentary Denies rash Neurologic Neurologic: Denies headache(s) Psychiatric Psychiatric: Denies depression Endocrine Endocrinology: Denies polyuria Hematologic/Lymphatic Hematologic/Lymphatic: Denies easy bruising Allergic/Immunologic Allergic/Immunologic ED: Denies urticaria EXAM Physical Exam Narrative Exam Narrative: 66-year-old male vital signs stable afebrile. Blood pressure elevated 194/96. Does not look septic or toxic. He is complaining of pain. H EENT exam unremarkable. Neck nontender. Lungs are clear equal symmetrical. Heart regular rate and rhythm. Abdomen is distended. Diffusely tender. Decreased bowel sounds. Exam consistent with a possible obstruction. No hernia. No mass. No pulsatile mass. Moving all 4 extremities. Nontender no edema. Neurologically is awake and alert. Const Vital Signs: 10/25/21:26 10/26/21 00:43 Temperature 96.7 F L Temperature Source Temporal Pulse Rate 63 Respiratory Rate 17 Blood Pressure 194/96 H Blood Pressure Mean 128 Pulse Ox 99 99 Oxygen Delivery Method Room Air Room Air Positive well nourished, well developed and obese; Negative for cachectic, contractures or unkempt General Appearance ED: well developed and NAD; Negative for unkempt, cachectic, contractures or pallor Nutritional Appearance: obese; Negative for cachectic HEENT Reports moist mucous membranes normocephalic and atraumatic; Negative for trauma or tenderness Eyes PERRL and EOMs intact bilaterally General Eye ED: Negative for pale conjunctiva or scleral icterus Neck no lymphadenopathy, supple and no JVD General: Negative for tenderness Resp normal respiratory effort and clear to auscultation bilaterally Auscultation: Negative for rales, rhonchi or wheezes Cardio regular rate, regular rhythm, S1 normal heart sound, S2 normal heart sound and no murmurs GI no masses; Negative for non-tender or non-distended Inspection: abdominal distention Auscultation: hypoactive bowel sounds; Negative for normoactive bowel sounds or hyperactive bowel sounds Palpation: soft and tender; Negative for guarding, rigid or rebound tenderness present Back/Spine no CVA tenderness General Back: Negative for CVA tenderness Extremity full ROM General Extremety ED: Negative for edema or tenderness General Extremity: Negative for edema Neuro moves all extremities Sensorium / Orientation: alert, oriented to person, oriented to place and oriented to time; Negative for orientation impaired, confused, lethargic or stuporous Motor Exam: strength 5/5 throughout Psych mental status grossly normal and thought process normal Appearance: Negative for unkempt Attitude: No agitated Mood & Affect: Negative for depressed or tearful Skin no wounds General Skin Exam: Negative for jaundice or pallor Lesions: no lesions Rashes: no rashes MDM MDM MDM Narrative Medical decision making narrative: Please [id number] diabetic male with abdominal pain and distention. CAT scan labs being obtained. Bowel obstruction is definitely in the differential diagnosis. Be treated with Dilaudid and IV Zofran along with IV fluids. Repeat exam at 1:20 AM patient is doing well. Abdomen is benign. He is having recurrent nausea for which he will be given a second dose of Zofran. He and his at bedside went over all his test results. They are comfortable with him being discharged home with outpatient follow-up. I will send him a prescription of Zofran to his pharmacy. Lab Data Attestation: I reviewed the patient's lab results. Lab results narrative: CBC shows a white count of 12. H&H is 17.6 and 50. Platelets 149. Electrolytes show sodium 133 gap of 5 normal BUN and creatinine of 15 and 1.1. Glucose 331. Total bilirubin 1.3 and alk phos 142 otherwise liver enzymes were normal. Amylase was 48. Lipase 103. Urinalysis negative. CAT scan read as negative by the radiologist and reviewed by me. Labs: Laboratory Results - last 24 hr 10/25/21 10/25/21 10/25/21 23:25 23:30 23:30 WBC 12.0 H RBC 5.47 Hgb 17.6 H Hct 50.1 MCV 91.6 MCH 32.2 H MCHC 35.1 RDW Std Deviation 40.6 RDW Coeff of Destiny 12.1 Plt Count 149 L MPV 11.0 Immature Gran % (Auto) 0.500 Neut % (Auto) 83.3 H Lymph % (Auto) 8.5 L [place] % (Auto) 5.4 Eos % (Auto) 1.9 Baso % (Auto) 0.4 Absolute Neuts (auto) 10.0 H Absolute Lymphs (auto) 1.02 Nucleated RBC % 0 Sodium 133 L Potassium 4.8 Chloride 99 Carbon Dioxide 29.0 Anion Gap 5 BUN 15 Creatinine 1.15 Estim Creat Clear Calc 76.54 Est GFR (MDRD) Af Amer 82 Est GFR (MDRD) Non-Af 68 BUN/Creatinine Ratio 13.0 Glucose 331 H Calcium 9.9 Total Bilirubin 1.30 H AST 31 ALT 59 Alkaline Phosphatase 142 H Total Protein 8.0 Albumin 4.2 Globulin 3.8 Albumin/Globulin Ratio 1.1 Amylase 48 Lipase 103 Urine Color Yellow Urine Clarity Clear Urine pH 6.0 Ur Specific [place] 1.015 Urine Protein 30 H Urine Glucose (UA) 1000 H Urine Ketones 5 H Urine Occult Blood 10 H Urine Nitrite Negative Urine Bilirubin Negative Urine Urobilinogen Normal Ur Leukocyte Esterase Negative Urine RBC 0 SEEN Urine WBC 0 SEEN Ur Squamous Epith Cells 0 SEEN Urine Bacteria 0 SEEN Urine Mucus 0 SEEN Radiography Diagnostic Testing: Clinical Impression(s) from Imaging Studies Abdomen/Pelvis CT 10/26/21 23:16 IMPRESSION: Normal enhanced CT of the abdomen and pelvis. Electronically Signed: Shane Bowers MD at 0:54 EDT , Discharge Plan Triage Chief Complaint: Abd Pain ED Provider: Patrick Mar Dx/Rx/DC Orders Clinical Impression: Abdominal pain, Hx of diabetic gastroparesis, History of diabetes mellitus Instructions: Abdominal Pain Prescriptions: New ondansetron 4 mg tablet,disintegrating 4 mg PO Q6H PRN (Reason: nausea and vomiting) Qty: 7 RF: 0 No Action cyclobenzaprine 10 mg tablet 10 mg PO TID RF: 0 lidocaine 5 % adhesive patch,medicated 1 patch TOPICAL DAILY RF: 0 insulin aspart U-100 [Novolog Flexpen U-100 Insulin] 100 unit/mL (3 mL) insulin pen 25 unit SC TID RF: 0 gabapentin 600 MG tablet 600 mg PO BIDCM PRN (Reason: nerve pain) RF: 0 atorvastatin 40 MG tablet 40 mg PO QHS RF: 0 clopidogrel 75 MG tablet 75 mg PO DAILY RF: 0 aspirin 81 MG tablet,chewable 81 mg PO DAILY@0800 RF: 0 lisinopril 5 MG tablet 5 mg PO DAILY RF: 0 metoprolol tartrate 25 MG tablet 12.5 mg PO BID RF: 0 insulin glargine 100 UNIT/ML insulin pen 70 unit SQ QHS RF: 0 oxycodone-acetaminophen 1 TABLET tablet 1 tab PO Q8H PRN PRN (Reason: Pain) RF: 0 Primary Care Provider: Germaine Gallo NP Referrals: Germaine Gallo NP, [facility] [Primary Care Provider] - 3-5 Days if not improving Activity Restrictions/Additional Instructions: Plenty of fluids and rest. Slowly increase your diet as tolerated. Zofran as needed for nausea. Follow-up with your primary care provider if not improving return if worse. Your lab tests and CAT scan tonight were unremarkable. Disposition Disposition: Home, Self Care
[2021-10-25] MEDS: 0.9% Normal Saline 1,000 ML 1000 ML IV (23:29)
[2021-10-25] MEDS: HYDROmorphone 1 MG/ML Syringe IV (23:31)
[2021-10-25] MEDS: Ondansetron 4 MG/2 ML Vial IV (23:31)
[2021-10-25 23:35] LABS: Bacteria 0 SEEN /hpf (None Seen); Mucous, Urine 0 SEEN /hpf (<or=2+); Red Blood Cells-Urine 0 SEEN /hpf (0-5); Squamous Epithelial Cells - UA 0 SEEN /hpf (0-5); White Blood Cells 0 SEEN /hpf (0-5)
[2021-10-25 23:36] LABS: Color, Urine Yellow (Yellow); Glucose, Dipstick 1000 mg/dl (Normal); Ketone-Dipstick 5 mg/dl (Negative); Leukocyte Esterase-Dipstick Negative /ul (Negative); Nitrite-Dipstick Negative (Negative); Occult Blood-Urine 10 /ul (Negative); Protein-Dipstick 30 mg/dl (Negative); Specific Gravity, Urine 1.015 (1.002-1.030); Urine Bilirubin Dipstick Negative (Negative); Urine Clarity Clear (Clear); Urine Urobilinogen Normal (Normal)
[2021-10-25 23:39] LABS: Absolute Lymphocyte Count 1.02 X10^3/uL (0.83-4.51); Basophil# 0.05 X10^3/uL; Basophil% 0.4 % (0-1); Eosinophil# 0.23 X10^3/uL; Eosinophils% 1.9 % (0-5); Hematocrit 50.1 % (40-54); Hemoglobin 17.6 g/dL (13.0-16.5); Lymphocyte # 1.02 X10^3/ul (0.83-4.51); Lymphocyte % 8.5 % (19-41); Mean Corp Hgb Conc 35.1 g/dL (32-36); Mean Corpuscular Hgb 32.2 pg (27.0-32.0); Mean Corpuscular Volume 91.6 fL (80-94); Monocyte# 0.64 X10^3/uL; Monocyte% 5.4 % (0-10); NRBC Flagged by Analyzer 0 % (0-5); Neutrophil # 9.96 X10^3/uL (2.7-7.7); Neutrophil % 83.3 % (47-70); Platelet Count 149 K/mm3 (150-450); RBC Distribution Width CV 12.1 % (11.6-14.6); RBC Distribution Width SD 40.6 fl (35.1-43.9); Red Blood Count 5.47 M/mm3 (4.6-6.2)
[2021-10-26 00:03] LABS: ALB/GLOB Ratio 1.1 RATIO (0.9-2.4); AST(SGOT) 31 U/L (15-37); Alanine Aminotransfer ALT/SGPT 59 U/L (16-61); Albumin, Serum 4.2 g/dL (3.2-5.0); Alkaline Phosphatase 142 U/L (45-117); Amylase 48 U/L (25-115); Anion Gap 5 (5-15); BUN 15 mg/dL (7-18); Calcium,Total 9.9 mg/dL (8.5-10.1); Chloride 99 mmol/L (98-107); Creatinine, Serum 1.15 mg/dL (0.70-1.30); EST Glomerular Filtration Rate 68 mL/min (>60); Est Glom Filt Rate - Afr Amer 82 mL/min (>60); Estimated Creatinine Clearance 76.54 ml/min; Globulin 3.8 g/dL (2.2-4.2); Glucose 331 mg/dL (74-106); Lipase 103 U/L (73-393); Potassium 4.8 mmol/L (3.5-5.1); Sodium Level 133 mmol/L (136-145)
[2021-10-26 00:43] VITALS: O2SAT 99
[2021-10-26] MEDS: Ondansetron 4 MG/2 ML Vial IV (01:28)
--- NOTE | 2021-10-26 23:16 | CT_ITS ---
STUDY: CT ABDOMEN AND PELVIS WITH CONTRAST REASON FOR EXAM: Male, 66 years old. abd pain RADIATION DOSAGE (If Supplied By Facility): CTDIvol = ( 18.39 ) mGy, DLP = ( 1465.35 ) mGycm TECHNIQUE: Transaxial images were obtained from the dome of the diaphragm to the symphysis pubis without oral contrast. IV 100mL Isovue-370 was administered. Sagittal and coronal images were reconstructed. Individualized dose optimization techniques were used for this CT. COMPARISON: None. FINDINGS: The visualized lung bases are unremarkable. The visualized portions of the heart are within normal limits. Normal liver. Normal gallbladder and extrahepatic biliary system. Normal spleen. Normal pancreas. Normal bilateral adrenal glands. Normal right kidney. Normal left kidney. Normal visualized stomach. Normal small intestine. Normal colon. The appendix is visualized and appears normal. Normal abdominal aorta. Normal inferior vena cava. Normal retroperitoneum. Normal urinary bladder. Normal abdominal wall. Normal osseous structures. CT/Abdomen/Pelvis W IV Cont ONLY IMPRESSION: Normal enhanced CT of the abdomen and pelvis. Electronically Signed: Shane Bowers MD at 0:54 EDT ,
== END 2021-10-26 01:36 | disposition home or self-care (01) ==
PROVIDERS: Emergency Provider Emergency Medicine; PCP Registered Nurse; Visit Provider Emergency Medicine
DX: R10.13 Epigastric pain (principal); E66.9 Obesity, unspecified; Z86.73 Personal history of transient ischemic attack (TIA), and cerebral infarction without residual deficits; Z95.5 Presence of coronary angioplasty implant and graft
CPT/HCPCS: 74177; 80053; 81001; 82150; 83690; 85025; 96361; 96374; 96375; 96376; 99283; J7030; Q9967; A4216; J2405

== ENCOUNTER 2021-10-28 16:36 | Inpatient (IN) | payer OTHER, MEDICARE, SELFPAY ==
[2021-10-28 16:37] VITALS: BP 129/73; PULSE 93; RESP 18; TEMP 36.1; O2SAT 98; BMI 18.1
--- NOTE | 2021-10-28 16:56 | US_ITS ---
INDICATION: PAIN EXAMINATION: US Abdomen RUQ (limited) TECHNIQUE: Kemp-scale and color Doppler imaging was performed of the abdomen. COMPARISON: 10/26/2021. Findings: The liver is negative.. There is mild contour nodularity suggestive of cirrhosis. No focal hepatic mass is identified. The main portal vein is normal in size and patent demonstrating hepatopetal flow. The gallbladder is remarkable for mobile, layering stones, however is without evidence of wall thickening or pericholecystic fluid. Sonographic Alanis''s tenderness is not appreciated. There is no evidence of intrahepatic biliary ductal dilatation. The CBD is nondilated measuring 6 mm at the level of the kemal hepatis. The visualized portions of the pancreas are unremarkable without evidence of focal or diffuse enlargement. Specifically, the tail is obscured by overlying bowel gas. The spleen is normal in size. Right and left kidneys measure 12.2 cm and in length respectively. The kidneys are normal in echogenicity. No focal renal lesion is identified. There is no evidence of hydronephrosis bilaterally. The abdominal aorta is normal in caliber where seen. The intrahepatic inferior vena cava is patent. There is free intraperitoneal fluid identified. US/Gallbladder IMPRESSION: without evidence of contour nodularity. No evidence of focal hepatic mass. Electronically Signed: Jaime Deleon MD at 19:30 EDT ,
--- NOTE | 2021-10-28 16:59 | EDS_ITS ---
HPI <SHARMAINE Lawson - Last Filed: 10/28/21 19:06> History of Present Illness Chief Complaint: Weakness Narrative Narrative: 66-year-old male with diabetes, long cardiac history, chronic pain, fibromyalgia presents to the emergency department with continuing epigastric pain, right upper quadrant abdominal pain presents the emergency department with jaundice. Dr. Matta who is overseeing this patient's care called the emergency department he like him to be reevaluated. Per the doctor, the patient looks much more yellow today, and he is concerned. Patient states that still have pain, denies any fevers or chills, denies any light-colored stools. Verenice gomez currently still has his gallbladder, patient denies any fevers or chills. PFSH <SHARMAINE Lawson - Last Filed: 10/28/21 19:06> [facility] Medical History (Updated 10/28/21 @ 21:20 by Lorelei Hill) Abdominal aneurysm Allergies Arthritis Diabetes Difficulty balancing Fibromyalgia Gastric paresis GERD (gastroesophageal reflux disease) H/O emotional problems Heart disease History of back problems HTN (hypertension) Irritable bowel disease Kidney stones Neuropathy Stroke Vascular disease Home Medications gabapentin 600 mg PO DAILY 05/31/14 [History Last Taken 02/25/17] aspirin 325 mg PO DAILY@0800 02/25/17 [History Last Taken 10/25/21] atorvastatin 40 mg PO QHS 02/25/17 [History Last Taken 10/25/21] clopidogrel 75 mg PO DAILY 02/25/17 [History Last Taken 10/25/21] insulin glargine 50 unit SQ BID 02/25/17 [History Last Taken 02/24/17] lisinopril 10 mg PO DAILY 02/25/17 [History Last Taken 02/25/17] oxycodone-acetaminophen 1 tab PO Q8H PRN PRN 02/25/17 [History Last Taken 02/24/17] insulin aspart U-100 100 unit/mL (3 mL) subcutaneous pen 20 unit SC TID ml 11/29/19 [History Last Taken Unknown] carvedilol [Coreg] 6.25 mg PO BID 10/28/21 [History Last Taken Unknown] fexofenadine [Enedelia] 180 mg PO DAILY 10/28/21 [History Last Taken Unknown] lidocaine [Lidoderm] 1 patch TOPICAL DAILY PRN 10/28/21 [History Last Taken Unknown] magnesium oxide 400 mg PO BID PRN 10/28/21 [History Last Taken Unknown] pantoprazole [Protonix] 40 mg PO DAILY 10/28/21 [History Last Taken Unknown] plecanatide [Trulance] 3 mg PO DAILY PRN 10/28/21 [History Last Taken Unknown] Allergy/AdvReac Type Severity Reaction Status Date / Time aripiprazole [From Abilify] Allergy Mild FELT POORLY Verified 10/28/21 16:39 atorvastatin [From Lipitor] Allergy muscle Verified 10/28/21 16:39 aches nabumetone [From Relafen] Allergy GI Verified 10/28/21 16:39 Family History Other Heart disease Surgical History H/O knee surgery Stented coronary artery Social History Smoking Status: Never smoker alcohol intake: never ROS <SHARMAINE Lawson - Last Filed: 10/28/21 19:06> ROS ED ROS Narrative Constitutional: Negative for fever, chills, weakness. Positive for lethargy, weight loss Eyes: Negative for vision loss, vision change, double vision ENT: Negative for any sore throat, ear pain, congestion Cardiovascular: Negative for any chest pain, tightness, palpitations, racing heartbeat Respiratory: Negative for any cough, sputum production, hemoptysis, shortness of breath, shortness of breath on exertion, orthopnea Gastrointestinal: Negative for any vomiting, diarrhea, constipation, blood in stool, blood in vomit. Positive for right upper quadrant abdominal pain, nausea : Negative for any urinary frequency, incontinence, dysuria, retention, blood in urine Muscle skeletal: Negative for any muscle joint pain, stiffness, arthralgias, neck pain, back pain. Positive for generalized malaise, myalgia Neurological: Negative for any headache, dizziness, syncope, numbness or tingling Skin: Negative for any rashes, lumps, itching, abrasions, lacerations. Patient does have a yellow appearance Psychiatric: Negative for any depression, anxiety, stress, suicidal ideation, homicidal ideation Hematologic: Negative for any easy bruising, excessive bruising, easy bleeding Allergies: Negative for any eczema, hives, rash EXAM <SHARMAINE Lawson - Last Filed: 10/28/21 19:06> Physical Exam Narrative Exam Narrative: Vital signs reviewed. Patient is alert and orient x4 patient does appear to have a yellow jaundice appearance HEET: Head normocephalic atraumatic, TMs clear bilaterally. Posterior pharynx is clear, moist mucous membranes. Nares clear bilaterally. Patient has scleral icterus Neck: Supple with no lymphadenopathy or tenderness. No signs of meningismus, negative jolt sign. Cardiac: Regular rate and rhythm no murmurs gallops or rubs, equal peripheral pulses bilaterally. Respiratory: Lungs clear to auscultation bilaterally. No chest tenderness. Abdomen: Soft. No abdominal bruit or pulsatile masses. No hepatosplenomegaly positive for slight abdomen distention, pain to the right upper and left upper quadrant. Extremities: No peripheral edema, no signs of gross trauma or deformity. Active full range of motion of all extremities. Neuro: Cranial nerves II through XII intact, no focal neurological deficits. Skin: Clean dry and intact with no rash, purpura, petechiae, vesicles or pustules. Skin shows a jaundice Backslash flank: No CVA tenderness, no midline spinal tenderness, no deformity. Psych: Normal mood and affect. No SI, HI or acute psychosis. Const Vital Signs: 10/28/21 16:37 10/28/21 16:46 Temperature 97 F L Temperature Source Temporal Pulse Rate 93 Respiratory Rate 18 Respiratory Pattern Normal Blood Pressure 129/73 H Blood Pressure Mean 91 Pulse Ox 98 Oxygen Delivery Method Room Air <Dr. Concepcion Rahman, DO - Last Filed: 10/29/21 10:27> Physical Exam Const Vital Signs: 10/28/21 16:37 10/28/21 16:46 Temperature 97 F L Temperature Source Temporal Pulse Rate 93 Respiratory Rate 18 Respiratory Pattern Normal Blood Pressure 129/73 H Blood Pressure Mean 91 Pulse Ox 98 Oxygen Delivery Method Room Air MDM <SHARMAINE Lawson - Last Filed: 10/28/21 19:06> [facility] Narrative Medical decision making narrative: Patient arrives in mild distress secondary to upper abdominal pain, patient does appear jaundiced, this is a new finding and was referred by his PCP. Patient did receive a full abdominal work-up, patient CBC was unremarkable, patient's chemistries showed a sodium of 134, BUN of 31 with a creatinine of 1.48, this is elevated related to his baseline. Patient's glucose was 315 with a lactic acid 2.4. Patient's ferritin level was grossly elevated at greater than 2122. Patient is to leave bilirubin was 1.3 on October 25, 2021, it is now 7.30 which is a large jump directly Rufus of 5.18. Patient's AST and ALT are slightly elevated with an alkaline phosphatase of 258. Patient's lipase was unremarkable. Patient was given IV fluids, IV Zofran, IV morphine. Patient is now resting, remained stable. Ultrasound of the right upper quadrant was ordered. I did speak with Dr. Toth, he agrees with the admission, he did for me to order MRCP this to be done tomorrow. Patient will be admitted by hospitalist Lab Data Labs: Laboratory Results - last 24 hr 10/28/21 10/28/21 10/28/21 17:00 17:00 17:00 WBC 9.6 RBC 5.28 Hgb 17.0 H Hct 48.9 MCV 92.6 MCH 32.2 H MCHC 34.8 RDW Std Deviation 43.8 RDW Coeff of Destiny 12.8 Plt Count 226 MPV 11.2 Immature Gran % (Auto) 0.500 Neut % (Auto) 83.2 H Lymph % (Auto) 6.5 L [place] % (Auto) 6.6 Eos % (Auto) 2.5 Baso % (Auto) 0.7 Absolute Neuts (auto) 7.9 H Absolute Lymphs (auto) 0.62 L Nucleated RBC % 0 PT INR Sodium 134 L Potassium 4.1 Chloride 98 Carbon Dioxide 26.0 Anion Gap 10 BUN 31 H Creatinine 1.48 H Estim Creat Clear Calc 46.29 Est GFR (MDRD) Af Amer 61 Est GFR (MDRD) Non-Af 51 L BUN/Creatinine Ratio 20.9 H Glucose 315 H Lactic Acid 2.4 H* Calcium 9.1 Ferritin Total Bilirubin 7.30 H Direct Bilirubin 5.18 H GGT AST 113 H ALT 131 H Alkaline Phosphatase 258 H Ammonia Total Protein 7.1 Albumin 3.4 Globulin 3.7 Amylase 20 L Lipase 73 Urine Color Urine Clarity Urine pH Ur Specific [place] Urine Protein Urine Glucose (UA) Urine Ketones Urine Occult Blood Urine Nitrite Urine Bilirubin Urine Urobilinogen Ur Leukocyte Esterase Urine RBC Urine WBC Ur Squamous Epith Cells Urine Bacteria Urine Mucus Monoscreen 10/28/21 10/28/21 10/28/21 17:00 17:00 17:05 WBC RBC Hgb Hct MCV MCH MCHC RDW Std Deviation RDW Coeff of Destiny Plt Count MPV Immature Gran % (Auto) Neut % (Auto) Lymph % (Auto) [place] % (Auto) Eos % (Auto) Baso % (Auto) Absolute Neuts (auto) Absolute Lymphs (auto) Nucleated RBC % PT 15.6 H INR 1.3 Sodium Potassium Chloride Carbon Dioxide Anion Gap BUN Creatinine Estim Creat Clear Calc Est GFR (MDRD) Af Amer Est GFR (MDRD) Non-Af BUN/Creatinine Ratio Glucose Lactic Acid Calcium Ferritin 2122 H Total Bilirubin Direct Bilirubin GGT 591 H AST ALT Alkaline Phosphatase Ammonia 27.0 Total Protein Albumin Globulin Amylase Lipase Urine Color Urine Clarity Urine pH Ur Specific [place] Urine Protein Urine Glucose (UA) Urine Ketones Urine Occult Blood Urine Nitrite Urine Bilirubin Urine Urobilinogen Ur Leukocyte Esterase Urine RBC Urine WBC Ur Squamous Epith Cells Urine Bacteria Urine Mucus Monoscreen 10/28/21 10/28/21 18:10 18:39 WBC RBC Hgb Hct MCV MCH MCHC RDW Std Deviation RDW Coeff of Destiny Plt Count MPV Immature Gran % (Auto) Neut % (Auto) Lymph % (Auto) [place] % (Auto) Eos % (Auto) Baso % (Auto) Absolute Neuts (auto) Absolute Lymphs (auto) Nucleated RBC % PT INR Sodium Potassium Chloride Carbon Dioxide Anion Gap BUN Creatinine Estim Creat Clear Calc Est GFR (MDRD) Af Amer Est GFR (MDRD) Non-Af BUN/Creatinine Ratio Glucose Lactic Acid Calcium Ferritin Total Bilirubin Direct Bilirubin GGT AST ALT Alkaline Phosphatase Ammonia Total Protein Albumin Globulin Amylase Lipase Urine Color Leila Urine Clarity Clear Urine pH 6.0 Ur Specific [place] 1.020 Urine Protein 15 H Urine Glucose (UA) 1000 H Urine Ketones 15 H Urine Occult Blood 10 H Urine Nitrite Positive H Urine Bilirubin 6 H Urine Urobilinogen 12 H Ur Leukocyte Esterase 25 H Urine RBC 0 SEEN Urine WBC 0 SEEN Ur Squamous Epith Cells 0-5 SEEN Urine Bacteria RARE Urine Mucus 0 SEEN Monoscreen Negative Radiography Diagnostic Testing: Clinical Impression(s) from Imaging Studies Gallbladder Ultrasound 10/28/21 16:56 IMPRESSION: without evidence of contour nodularity. No evidence of focal hepatic mass. Electronically Signed: Jaime Deleon MD at 19:30 EDT , <Dr. Concepcion Rahman, DO - Last Filed: 10/29/21 10:27> [facility] MDM Narrative Medical decision making narrative: I have personally performed a face to face assessment of the patient and have reviewed the HOLLIE Note. I performed a substantive portion of the visit including all aspects of the following. My juan findings include: History is patient is evaluated for new onset jaundice. He has been having ongoing right upper quadrant abdominal pain. He was sent in for further evaluation. Patient does have a direct bilirubinemia. We did send off hepatitis panel as well as further labs. The exact cause is unclear. Right upper quadrant ultrasound obtained which is negative for any acute process. Patient does have a mildly elevated lactic acid. There is no obvious source of acute infection requiring antibiotics. He is given IV fluids in the emergency room. Suspect is secondary to dehydration. Case discussed with GI, Dr. Toth, who would recommend admission and an MRCP. This issue was ordered and they try to perform it while still in the ER however patient has vertebral artery stents placed in May 2021 knows not clear if these were MRI compatible. And after sent back to the emergency room I did log on to clear the clinic epic and confirmed that they are MRI compatible. Patient has since had an MRI in July 2021. However, MRI had left for the night so he will need to receive an MRCP in the morning. This information was printed out for the patient's chart. Patient otherwise hemodynamically stable and admitted for further evaluation of his new onset jaundice and abdominal pain. Lab Data Labs: Laboratory Results - last 24 hr 10/28/21 10/28/21 10/28/21 17:00 17:00 17:00 WBC 9.6 RBC 5.28 Hgb 17.0 H Hct 48.9 MCV 92.6 MCH 32.2 H MCHC 34.8 RDW Std Deviation 43.8 RDW Coeff of Destiny 12.8 Plt Count 226 MPV 11.2 Immature Gran % (Auto) 0.500 Neut % (Auto) 83.2 H Lymph % (Auto) 6.5 L [place] % (Auto) 6.6 Eos % (Auto) 2.5 Baso % (Auto) 0.7 Absolute Neuts (auto) 7.9 H Absolute Lymphs (auto) 0.62 L Nucleated RBC % 0 PT INR Sodium 134 L Potassium 4.1 Chloride 98 Carbon Dioxide 26.0 Anion Gap 10 BUN 31 H Creatinine 1.48 H Estim Creat Clear Calc 46.29 Est GFR (MDRD) Af Amer 61 Est GFR (MDRD) Non-Af 51 L BUN/Creatinine Ratio 20.9 H Glucose 315 H Lactic Acid 2.4 H* Calcium 9.1 Ferritin Total Bilirubin 7.30 H Direct Bilirubin 5.18 H GGT AST 113 H ALT 131 H Alkaline Phosphatase 258 H Ammonia Total Protein 7.1 Albumin 3.4 Globulin 3.7 Amylase 20 L Lipase 73 Urine Color Urine Clarity Urine pH Ur Specific [place] Urine Protein Urine Glucose (UA) Urine Ketones Urine Occult Blood Urine Nitrite Urine Bilirubin Urine Urobilinogen Ur Leukocyte Esterase Urine RBC Urine WBC Ur Squamous Epith Cells Urine Bacteria Urine Mucus Monoscreen 10/28/21 10/28/21 10/28/21 17:00 17:00 17:05 WBC RBC Hgb Hct MCV MCH MCHC RDW Std Deviation RDW Coeff of Destiny Plt Count MPV Immature Gran % (Auto) Neut % (Auto) Lymph % (Auto) [place] % (Auto) Eos % (Auto) Baso % (Auto) Absolute Neuts (auto) Absolute Lymphs (auto) Nucleated RBC % PT 15.6 H INR 1.3 Sodium Potassium Chloride Carbon Dioxide Anion Gap BUN Creatinine Estim Creat Clear Calc Est GFR (MDRD) Af Amer Est GFR (MDRD) Non-Af BUN/Creatinine Ratio Glucose Lactic Acid Calcium Ferritin 2122 H Total Bilirubin Direct Bilirubin GGT 591 H AST ALT Alkaline Phosphatase Ammonia 27.0 Total Protein Albumin Globulin Amylase Lipase Urine Color Urine Clarity Urine pH Ur Specific [place] Urine Protein Urine Glucose (UA) Urine Ketones Urine Occult Blood Urine Nitrite Urine Bilirubin Urine Urobilinogen Ur Leukocyte Esterase Urine RBC Urine WBC Ur Squamous Epith Cells Urine Bacteria Urine Mucus Monoscreen 10/28/21 10/28/21 18:10 18:39 WBC RBC Hgb Hct MCV MCH MCHC RDW Std Deviation RDW Coeff of Destiny Plt Count MPV Immature Gran % (Auto) Neut % (Auto) Lymph % (Auto) [place] % (Auto) Eos % (Auto) Baso % (Auto) Absolute Neuts (auto) Absolute Lymphs (auto) Nucleated RBC % PT INR Sodium Potassium Chloride Carbon Dioxide Anion Gap BUN Creatinine Estim Creat Clear Calc Est GFR (MDRD) Af Amer Est GFR (MDRD) Non-Af BUN/Creatinine Ratio Glucose Lactic Acid Calcium Ferritin Total Bilirubin Direct Bilirubin GGT AST ALT Alkaline Phosphatase Ammonia Total Protein Albumin Globulin Amylase Lipase Urine Color Leila Urine Clarity Clear Urine pH 6.0 Ur Specific [place] 1.020 Urine Protein 15 H Urine Glucose (UA) 1000 H Urine Ketones 15 H Urine Occult Blood 10 H Urine Nitrite Positive H Urine Bilirubin 6 H Urine Urobilinogen 12 H Ur Leukocyte Esterase 25 H Urine RBC 0 SEEN Urine WBC 0 SEEN Ur Squamous Epith Cells 0-5 SEEN Urine Bacteria RARE Urine Mucus 0 SEEN Monoscreen Negative Radiography Diagnostic Testing: Clinical Impression(s) from Imaging Studies Gallbladder Ultrasound 10/28/21 16:56 IMPRESSION: without evidence of contour nodularity. No evidence of focal hepatic mass. Electronically Signed: Jaime Deleon MD at 19:30 EDT , Discharge Plan Dx/Rx/DC Orders Clinical Impression: Jaundice, Direct hyperbilirubinemia, Abdominal pain, acute, right upper quadrant Disposition Disposition: Acute Care [facility]
[2021-10-28] MEDS: Morphine 4 MG/ML Syringe IV (17:01)
[2021-10-28] MEDS: Ondansetron 4 MG/2 ML Vial IV (17:01)
[2021-10-28] MEDS: 0.9% Normal Saline 1,000 ML 1000 ML IV (17:03)
[2021-10-28 17:22] LABS: Absolute Lymphocyte Count 0.62 X10^3/uL (0.83-4.51); Absolute Neutrophil Count 7.9 X10^3/uL (2.0-7.7); Basophil# 0.07 X10^3/uL; Basophil% 0.7 % (0-1); Eosinophil# 0.24 X10^3/uL; Eosinophils% 2.5 % (0-5); Hematocrit 48.9 % (40-54); Lymphocyte # 0.62 X10^3/ul (0.83-4.51); Lymphocyte % 6.5 % (19-41); Mean Corp Hgb Conc 34.8 g/dL (32-36); Mean Corpuscular Hgb 32.2 pg (27.0-32.0); Mean Corpuscular Volume 92.6 fL (80-94); Mean Platelet Vol. 11.2 fl (6.2-12.0); Monocyte# 0.63 X10^3/uL; Monocyte% 6.6 % (0-10); NRBC Flagged by Analyzer 0 % (0-5); Neutrophil # 7.94 X10^3/uL (2.7-7.7); Neutrophil % 83.2 % (47-70); Platelet Count 226 K/mm3 (150-450); RBC Distribution Width CV 12.8 % (11.6-14.6); RBC Distribution Width SD 43.8 fl (35.1-43.9); Red Blood Count 5.28 M/mm3 (4.6-6.2); White Blood Count 9.6 K/mm3 (4.4-11.0)
[2021-10-28 17:39] LABS: AST(SGOT) 113 U/L (15-37); Alanine Aminotransfer ALT/SGPT 131 U/L (16-61); Albumin, Serum 3.4 g/dL (3.2-5.0); Alkaline Phosphatase 258 U/L (45-117); Amylase 20 U/L (25-115); Anion Gap 10 (5-15); BUN 31 mg/dL (7-18); BUN/Creat Ratio 20.9 RATIO (10-20); Bilirubin, Direct 5.18 mg/dL (0.00-0.30); Calcium,Total 9.1 mg/dL (8.5-10.1); Chloride 98 mmol/L (98-107); Creatinine, Serum 1.48 mg/dL (0.70-1.30); EST Glomerular Filtration Rate 51 mL/min (>60); Est Glom Filt Rate - Afr Amer 61 mL/min (>60); Estimated Creatinine Clearance 46.29 ml/min; Globulin 3.7 g/dL (2.2-4.2); Glucose 315 mg/dL (74-106); Lipase 73 U/L (73-393); Potassium 4.1 mmol/L (3.5-5.1); Protein, Total 7.1 g/dL (6.4-8.2); Sodium Level 134 mmol/L (136-145)
[2021-10-28 17:49] LABS: Lactic Acid 2.4 mmol/L (0.4-1.9)
[2021-10-28 17:52] LABS: International Normalized Ratio 1.3; Prothrombin Time (Protime)PT. 15.6 SECONDS (11.7-14.9)
[2021-10-28 18:34] LABS: Ferritin 2122 ng/mL (26-388); GGTP 591 U/L (15-85)
[2021-10-28 18:44] LABS: Mucous, Urine 0 SEEN /hpf (<or=2+); Red Blood Cells-Urine 0 SEEN /hpf (0-5); White Blood Cells 0 SEEN /hpf (0-5)
[2021-10-28 18:53] LABS: Color, Urine Amber (Yellow); Glucose, Dipstick 1000 mg/dl (Normal); Ketone-Dipstick 15 mg/dl (Negative); Leukocyte Esterase-Dipstick 25 /ul (Negative); Nitrite-Dipstick Positive (Negative); Occult Blood-Urine 10 /ul (Negative); Protein-Dipstick 15 mg/dl (Negative); Urine Clarity Clear (Clear); Urine Urobilinogen 12 mg/dl (Normal)
[2021-10-28 18:57] LABS: Urine Bilirubin Dipstick 6 mg/dL (Negative)
[2021-10-28 18:59] LABS: Bacteria RARE /hpf (None Seen); Squamous Epithelial Cells - UA 0-5 SEEN /hpf (0-5)
[2021-10-28 19:02] LABS: Internal QC Validated? YES +Cl - CLEAR BKGD; Monotest Negative (Negative)
--- NOTE | 2021-10-28 19:23 | PCM.HP.STD ---
HPI - General General Date of Admission: 10/28/21 HPI Narrative TOMMY JOSE, is a 66 M who presents to his primary care's office today for continued right upper quadrant abdominal pain as well as epigastric pain. His PCP felt that he was jaundiced so requested that he come to the hospital for further evaluation. He had been in the ER on the of this month with similar complaints and was discharged home after CT scan of his abdomen was negative and his labs were grossly normal, he did have a slight white count at that time. Now his total bilirubin is elevated to over 7 and his LFTs are also elevated. The ER did get in touch with gastroenterology who recommended an MRCP. Gallbladder ultrasound is unremarkable. No fevers or chills, lactic acid is slightly elevated but no current signs of infection. [facility] Medical History (Updated 10/28/21 @ 19:06 by SHARMAINE Lawson) Allergies Arthritis Diabetes Difficulty balancing Gastric paresis GERD (gastroesophageal reflux disease) H/O emotional problems Heart disease History of back problems HTN (hypertension) Irritable bowel disease Kidney stones Neuropathy Stroke Vascular disease Home Medications gabapentin 600 mg PO BIDCM PRN 05/31/14 [History Last Taken 02/25/17] aspirin 81 mg PO DAILY@0800 02/25/17 [History Last Taken 10/25/21] atorvastatin 40 mg PO QHS 02/25/17 [History Last Taken 10/25/21] clopidogrel 75 mg PO DAILY 02/25/17 [History Last Taken 10/25/21] insulin glargine 70 unit SQ QHS 02/25/17 [History Last Taken 02/24/17] lisinopril 5 mg PO DAILY 02/25/17 [History Last Taken 02/25/17] metoprolol tartrate 12.5 mg PO BID 02/25/17 [History Last Taken 02/25/17] oxycodone-acetaminophen 1 tab PO Q8H PRN PRN 02/25/17 [History Last Taken 02/24/17] insulin aspart U-100 100 unit/mL (3 mL) subcutaneous pen 25 unit SC TID ml 11/29/19 [History Last Taken Unknown] lidocaine 5 % topical patch 1 patch TOPICAL DAILY 11/29/19 [History Last Taken Unknown] ondansetron 4 mg PO Q6H PRN #7 tab 10/26/21 [Rx Last Taken Unknown] Allergy/AdvReac Type Severity Reaction Status Date / Time aripiprazole [From Abilify] Allergy Mild FELT POORLY Verified 10/28/21 16:39 atorvastatin [From Lipitor] Allergy muscle Verified 10/28/21 16:39 aches nabumetone [From Relafen] Allergy GI Verified 10/28/21 16:39 Family History Other Heart disease Surgical History H/O knee surgery Stented coronary artery Social History Smoking Status: Never smoker alcohol intake: never ROS Constitutional Constitutional: Denies chills, fatigue, fever(s) or malaise Eyes Eyes: Denies blurry vision ENT HEENT: Denies headache(s) or nasal discharge Cardiovascular Cardiovascular: Denies chest pain, dyspnea on exertion or syncope Respiratory/Chest Respiratory/Chest: Denies cough, shortness of breath at rest or shortness of breath with exertion Gastrointestinal Gastrointestinal: Reports abdominal pain and nausea; Denies constipation, diarrhea or vomiting Genitourinary Genitourinary: Denies dysuria Neurologic Neurologic: Denies focal weakness, numbness or tremor(s) Psychiatric Psychiatric: Denies anxiety or depression Vital Signs Vital Signs Vital Signs: 10/28/21 16:37 10/28/21 16:46 Temperature 97 F L Temperature Source Temporal Pulse Rate 93 Respiratory Rate 18 Respiratory Pattern Normal Blood Pressure 129/73 H Blood Pressure Mean 91 Pulse Ox 98 Oxygen Delivery Method Room Air Weight Weight: 145 lb Body Mass Index (BMI) 18.1 Physical Exam Const alert and oriented x3 General Appearance: cooperative HEENT normocephalic Mouth: dry mucous membranes Eyes PERRL, EOMs intact bilaterally and conjunctivae normal Neck supple and no JVD Resp normal respiratory effort, no retractions, no use of accessory muscles and clear to auscultation bilaterally Auscultation: Negative for crackles, rales, rhonchi or wheezes Cardio regular rate, regular rhythm, S1 normal heart sound, S2 normal heart sound and no murmurs GI soft to palpation and non-distended; Negative for hepatosplenomegaly Palpation: tender Extremity no clubbing, cyanosis or edema Skin no rashes or lesions noted Neuro no focal motor deficits and no sensory deficits noted Psych affect normal Appearance: appropriate Results Lab / Micro Data Result Diagrams: 10/28/21 17:00 10/28/21 17:00 Labs: Laboratory Results - last 24 hr 10/28/21 17:00: WBC 9.6, RBC 5.28, Hgb 17.0 H, Hct 48.9, MCV 92.6, MCH 32.2 H, MCHC 34.8, RDW Std Deviation 43.8, RDW Coeff of Destiny 12.8, Plt Count 226, MPV 11.2, Immature Gran % (Auto) 0.500, Neut % (Auto) 83.2 H, Lymph % (Auto) 6.5 L, [place] % (Auto) 6.6, Eos % (Auto) 2.5, Baso % (Auto) 0.7, Absolute Neuts (auto) 7.9 H, Absolute Lymphs (auto) 0.62 L, Nucleated RBC % 0 10/28/21 17:00: Sodium 134 L, Potassium 4.1, Chloride 98, Carbon Dioxide 26.0, Anion Gap 10, BUN 31 H, Creatinine 1.48 H, Estim Creat Clear Calc 46.29, Est GFR (MDRD) Af Amer 61, Est GFR (MDRD) Non-Af 51 L, BUN/Creatinine Ratio 20.9 H, Glucose 315 H, Calcium 9.1, Total Bilirubin 7.30 H, Direct Bilirubin 5.18 H, AST 113 H, ALT 131 H, Alkaline Phosphatase 258 H, Total Protein 7.1, Albumin 3.4, Globulin 3.7, Amylase 20 L, Lipase 73 10/28/21 17:00: Lactic Acid 2.4 H* 10/28/21 17:00: PT 15.6 H, INR 1.3 10/28/21 17:00: Ferritin 2122 H, GGT 591 H 10/28/21 17:05: Ammonia 27.0 10/28/21 18:10: Monoscreen Negative 10/28/21 18:39: Urine Color Leila, Urine Clarity Clear, Urine pH 6.0, Ur Specific [place] 1.020, Urine Protein 15 H, Urine Glucose (UA) 1000 H, Urine Ketones 15 H, Urine Occult Blood 10 H, Urine Nitrite Positive H, Urine Bilirubin 6 H, Urine Urobilinogen 12 H, Ur Leukocyte Esterase 25 H, Urine RBC 0 SEEN, Urine WBC 0 SEEN, Ur Squamous Epith Cells 0-5 SEEN, Urine Bacteria RARE, Urine Mucus 0 SEEN Assessment & Plan Assessment/Plan (1) Jaundice: PLAN: 1. Jaundice with abdominal pain ? Bilirubin is elevated over her 7 consistent with likely obstruction ? Gallbladder ultrasound has not been read yet and he is undergoing an MRCP ? Consult gastroenterology for assistance ? White count is normal and he is afebrile we will hold off antibiotics at this time ? We will make him n.p.o. continue with IV fluids 2. CAD status post CABG x3 and stents/HTN/H LD ? Blood pressures is stable ? Continue with home blood pressure medications ? Continue with Lipitor 3. DM2/gastroparesis ? We will hold his mealtime insulin and place him on sliding scale insulin ? We will decrease his long-acting insulin and monitor ? Accu-Cheks every 6 hours and will make adjustments as necessary, he is currently n.p.o. DVT: SCDs Charges/Coding Visit Charges Inpatient E&M: 32104 Init Hosp L3
--- NOTE | 2021-10-28 19:44 | ED.RN ---
MRCP COULD NOT BE COMPLETED AT THIS TIME DUE TO PATIENT HAVING SOME TYPE OF NECK SURGERY THAT REQUIRES FURTHER FOLLOW UP FROM MRI DEPARTMENT BEFORE IT CAN BE COMPLETED
[2021-10-28 21:00] VITALS: BP 129/73; BP 161/77; PULSE 83; PULSE 93; RESP 18; TEMP 36.1; TEMP 36.8; O2SAT 97; O2SAT 98; BMI 30.9
[2021-10-28 21:16] LABS: Reflex Lactate? Y
[2021-10-28] MEDS: 0.9% Normal Saline 1,000 ML 100 ML IV (21:31)
[2021-10-28 22:19] VITALS: BP 161/77; PULSE 83
[2021-10-28] MEDS: Metoprolol Tartrate 25 MG Tablet 12.5 MG PO (22:19)
[2021-10-28] MEDS: cycloBENZAPRine HCl 10 MG Tablet PO (22:19)
[2021-10-28] MEDS: Atorvastatin Calcium 40 MG Tablet PO (22:19)
[2021-10-28] MEDS: Insulin Glargine-YFGN 100 UNIT/ML Pen 40 UNIT SC (22:22)
[2021-10-28 22:35] LABS: Bedside Glucose 245 mg/dL (74-106)
[2021-10-28 23:58] LABS: Lactic Acid 1.4 mmol/L (0.4-1.9)
[2021-10-29] MEDS: Insulin Lispro 100 UNIT/ML INSULN.PEN SC ×4 (00:57→17:32)
[2021-10-29 01:06] LABS: Bedside Glucose 251 mg/dL (74-106)
[2021-10-29 03:25] VITALS: BP 139/78; PULSE 80; RESP 16; TEMP 36.7; O2SAT 99
[2021-10-29] MEDS: Ondansetron 4 MG/2 ML Vial IV ×2 (03:37→18:50)
[2021-10-29] MEDS: Morphine 4 MG/ML Syringe IV ×2 (03:43→12:58)
[2021-10-29] MEDS: 0.9% Normal Saline 1,000 ML 100 ML IV ×2 (06:25→17:33)
[2021-10-29 06:27] LABS: Absolute Lymphocyte Count 0.54 X10^3/uL (0.83-4.51); Absolute Neutrophil Count 4.5 X10^3/uL (2.0-7.7); Basophil# 0.04 X10^3/uL; Basophil% 0.7 % (0-1); Eosinophil# 0.28 X10^3/uL; Eosinophils% 4.7 % (0-5); Hematocrit 43.3 % (40-54); Hemoglobin 14.4 g/dL (13.0-16.5); Lymphocyte # 0.54 X10^3/ul (0.83-4.51); Lymphocyte % 9.1 % (19-41); Mean Corp Hgb Conc 33.3 g/dL (32-36); Mean Corpuscular Hgb 31.3 pg (27.0-32.0); Mean Corpuscular Volume 94.1 fL (80-94); Mean Platelet Vol. 11.1 fl (6.2-12.0); Monocyte# 0.56 X10^3/uL; Monocyte% 9.4 % (0-10); NRBC Flagged by Analyzer 0 % (0-5); Neutrophil # 4.48 X10^3/uL (2.7-7.7); Neutrophil % 75.6 % (47-70); POSITIVE DIFFERENTIAL YES; Platelet Count 166 K/mm3 (150-450); RBC Distribution Width CV 12.8 % (11.6-14.6); RBC Distribution Width SD 43.8 fl (35.1-43.9); White Blood Count 5.9 K/mm3 (4.4-11.0)
[2021-10-29 06:39] LABS: Differential Indicated SCAN CRITERIA MET
[2021-10-29 06:51] LABS: Bedside Glucose 201 mg/dL (74-106)
[2021-10-29 06:57] LABS: Differential Comment SCANNED
[2021-10-29 07:00] LABS: ALB/GLOB Ratio 0.9 RATIO (0.9-2.4); AST(SGOT) 106 U/L (15-37); Alanine Aminotransfer ALT/SGPT 120 U/L (16-61); Albumin, Serum 2.7 g/dL (3.2-5.0); Alkaline Phosphatase 226 U/L (45-117); Anion Gap 7 (5-15); BUN 27 mg/dL (7-18); BUN/Creat Ratio 25.7 RATIO (10-20); Chloride 102 mmol/L (98-107); Creatinine, Serum 1.05 mg/dL (0.70-1.30); EST Glomerular Filtration Rate 75 mL/min (>60); Est Glom Filt Rate - Afr Amer 91 mL/min (>60); Estimated Creatinine Clearance 83.83 ml/min; Glucose 228 mg/dL (74-106); Potassium 3.9 mmol/L (3.5-5.1); Protein, Total 5.7 g/dL (6.4-8.2); Sodium Level 135 mmol/L (136-145)
--- NOTE | 2021-10-29 07:25 | PCM.PN.HOSP ---
Subjective Subjective Patient is a 66-year-old gentleman with multiple comorbidities including coronary artery disease, diabetes mellitus type 2 who was sent to the ED by the primary care physician on account of nausea and vomiting as well as patient being jaundiced. His diagnostic work-up in the ED did reveal abnormal LFTs. Ultrasound of the gallbladder was basically unremarkable. Patient has been admitted to regular nursing floor for subsequent work-up Objective Data Objective Data Vital Signs: Vital Signs Temp Pulse Resp BP Pulse Ox 98.0 F 80 16 139/78 H 99 10/29/21 03:25 10/29/21 03:25 10/29/21 03:25 10/29/21 03:25 10/29/21 03:25 Oxygen Delivery Method Room Air Weight: 112.207 kg Body Mass Index (BMI) 30.9 Intake & Output: Intake and Output for Last 24 Hours 10/27/21 10/28/21 10/29/21 23:59 23:59 23:59 Intake Total 1000 / 1000 890 / 890 Balance 1000 / 1000 890 / 890 Lab / Micro Data Result Diagrams: 10/29/21 05:55 10/29/21 05:55 Labs: Laboratory Results - last 24 hr 10/28/21 17:00: WBC 9.6, RBC 5.28, Hgb 17.0 H, Hct 48.9, MCV 92.6, MCH 32.2 H, MCHC 34.8, RDW Std Deviation 43.8, RDW Coeff of Destiny 12.8, Plt Count 226, MPV 11.2, Immature Gran % (Auto) 0.500, Neut % (Auto) 83.2 H, Lymph % (Auto) 6.5 L, [place] % (Auto) 6.6, Eos % (Auto) 2.5, Baso % (Auto) 0.7, Absolute Neuts (auto) 7.9 H, Absolute Lymphs (auto) 0.62 L, Nucleated RBC % 0 10/28/21 17:00: Sodium 134 L, Potassium 4.1, Chloride 98, Carbon Dioxide 26.0, Anion Gap 10, BUN 31 H, Creatinine 1.48 H, Estim Creat Clear Calc 46.29, Est GFR (MDRD) Af Amer 61, Est GFR (MDRD) Non-Af 51 L, BUN/Creatinine Ratio 20.9 H, Glucose 315 H, Calcium 9.1, Total Bilirubin 7.30 H, Direct Bilirubin 5.18 H, AST 113 H, ALT 131 H, Alkaline Phosphatase 258 H, Total Protein 7.1, Albumin 3.4, Globulin 3.7, Amylase 20 L, Lipase 73 10/28/21 17:00: Lactic Acid 2.4 H* 10/28/21 17:00: PT 15.6 H, INR 1.3 10/28/21 17:00: Ferritin 2122 H, GGT 591 H 10/28/21 17:05: Ammonia 27.0 10/28/21 18:10: Monoscreen Negative 10/28/21 18:39: Urine Color Leila, Urine Clarity Clear, Urine pH 6.0, Ur Specific [place] 1.020, Urine Protein 15 H, Urine Glucose (UA) 1000 H, Urine Ketones 15 H, Urine Occult Blood 10 H, Urine Nitrite Positive H, Urine Bilirubin 6 H, Urine Urobilinogen 12 H, Ur Leukocyte Esterase 25 H, Urine RBC 0 SEEN, Urine WBC 0 SEEN, Ur Squamous Epith Cells 0-5 SEEN, Urine Bacteria RARE, Urine Mucus 0 SEEN 10/28/21 22:18: POC Glucose 245 H 10/28/21 23:10: Lactic Acid 1.4 10/29/21 00:54: POC Glucose 251 H 10/29/21 05:55: WBC 5.9, RBC 4.60, Hgb 14.4, Hct 43.3, MCV 94.1 H, MCH 31.3, MCHC 33.3, RDW Std Deviation 43.8, RDW Coeff of Destiny 12.8, Plt Count 166, MPV 11.1, Immature Gran % (Auto) 0.500, Neut % (Auto) 75.6 H, Lymph % (Auto) 9.1 L, [place] % (Auto) 9.4, Eos % (Auto) 4.7, Baso % (Auto) 0.7, Absolute Neuts (auto) 4.5, Absolute Lymphs (auto) 0.54 L, Nucleated RBC % 0, Differential Comment SCANNED 10/29/21 05:55: Sodium 135 L, Potassium 3.9, Chloride 102, Carbon Dioxide 26.0, Anion Gap 7, BUN 27 H, Creatinine 1.05, Estim Creat Clear Calc 83.83, Est GFR (MDRD) Af Amer 91, Est GFR (MDRD) Non-Af 75, BUN/Creatinine Ratio 25.7 H, Glucose 228 H, Calcium 8.0 L, Total Bilirubin 5.40 H, AST 106 H, ALT 120 H, Alkaline Phosphatase 226 H, Total Protein 5.7 L, Albumin 2.7 L, Globulin 3.0, Albumin/Globulin Ratio 0.9 10/29/21 06:19: POC Glucose 201 H Radiography Diagnostic Testing: Radiology Impression Gallbladder Ultrasound 10/28/21 16:56 IMPRESSION: without evidence of contour nodularity. No evidence of focal hepatic mass. Electronically Signed: Jaime Deleon MD at 19:30 EDT , Physical Exam Narrative GENERAL: cooperative HEENT: Atraumatic; EYES; icteric, Normal Conjunctiva NECK; supple, normal thyroid, RESPIRATORY: Diminished to auscultation CARDIOVASCULAR: Regular S1 S2, GI: soft, normoactive bowel sounds, : No Renal angle tenderness; EXTREMITIES: No edema, no clubbing, MUSCULOSKELETAL: no muscle wasting NEURO: Awake; no lateralizing signs. SKIN: No Rash PSYCH; Flat affect Assessment & Plan Assessment/Plan (1) Jaundice: PLAN: Patient is a 66-year-old gentleman with multiple comorbidities including coronary artery disease, diabetes mellitus type 2 who was sent to the ED by the primary care physician on account of nausea and vomiting as well as patient being jaundiced. Her diagnostic work-up in the ED did reveal abnormal LFTs. Ultrasound of the gallbladder was basically unremarkable. Patient has been admitted to regular nursing floor for subsequent work-up 1. Abnormal LFTs ? Patient presented with nonspecific symptoms including abdominal pain, nausea and vomiting. Was found to have abnormal LFTs on admission. Initial imaging studies with an ultrasound of the gallbladder unremarkable an MRI of the abdomen subsequently ordered for further evaluation. As part of patient's work-up did obtain acute hepatitis panel as well as IJEOMA with reflex panel to rule out autoimmune hepatitis. Consult has also been placed to GI to assist with evaluation 2. Diabetes mellitus type 2 ? With complications including gastroparesis held patient oral agent did continue with his insulin regimen with Accu-Cheks before meals and at bedtime with sliding scale coverage 3. Coronary artery disease ? Patient has history of previous CABG with subsequent PCI with stent placement did continue with patient home medications 4. Hypertension - Blood pressure controlled, home medications continued with dose adjustment as needed 5. Dyslipidemia -Patient is on statin therapy, continued at home dose 6. Class I obesity with BMI of 30.9 ? Weight loss advised 7. Abnormal urinalysis ? Patient had proteinuria, glycosuria positive urine nitrite as well as elevated leukocyte esterase. With patient experiencing nausea and fatigue patient was started on Rocephin did request for urine culture 8. DVT prophylaxis ? Lovenox Charges/Coding Visit Charges Inpatient E&M: 28785 Subs Hosp L3
[2021-10-29 09:11] VITALS: BP 128/72; PULSE 72; RESP 18; TEMP 36.4; O2SAT 96
--- NOTE | 2021-10-29 10:20 | NURSING ---
MRI was called to see if they had the information they needed regarding patient's stents. They state they did not have the information needed. This was relayed to patient and patient's and they state, this was taken care of last night. The ER doctor said it was ok and that he researched it. The machine packaging technician states she cannot go off of this information, she needs the info in writing. This RN states she will check the paper chart to see if there is documentation regarding patient's stents. Patient's is also calling [facility] to get information in writing as well.
--- NOTE | 2021-10-29 10:58 | MRI_ITS ---
EXAM: MR ABDOMEN WITHOUT INTRAVENOUS CONTRAST, MRCP PROTOCOL CLINICAL INDICATION: Jaundice, upper abdominal pain TECHNIQUE: Multiplanar and multisequence MR images of the abdomen without intravenous contrast obtained with MRCP sequence. Three-dimensional post-processing reconstructions were performed. This report was created using [employer] report generation technology. COMPARISON: CT abdomen and pelvis October 26, 2021 FINDINGS: LOWER THORAX: Unremarkable. No pleural effusion. LIVER: Unremarkable. Normal morphology. GALLBLADDER AND BILE DUCTS: Gallbladder again noted to be distended and associated with pericholecystic fluid/edema. A 2.4 cm segment of the proximal common bile duct noted to be narrowed raising the possibility of secondary change related to underlying gallbladder disease, Mirizzi syndrome. No evidence of common bile duct stone. PANCREAS: Unremarkable. No focal cystic mass. No pancreatic duct dilation. SPLEEN: Unremarkable. Non-enlarged. ADRENALS: Unremarkable. No nodules. KIDNEYS AND URETERS: Unremarkable. Normal renal size and position. No hydronephrosis. INTRAPERITONEAL SPACE: Unremarkable. No ascites or other fluid collection. VASCULATURE: Unremarkable. Abdominal aorta is non-dilated. LYMPH NODES: No enlarged lymph nodes. MRI/MRCP Abdomen without Contrast IMPRESSION: Common bile duct narrowing secondary to underlying cholecystitis, Mirizzi syndrome. Electronically Signed: Alejandro Holloway MD at 12:47 EDT ,
--- NOTE | 2021-10-29 11:13 | CASEMGMT ---
LIBAN CM in to pt room, pt at bedside. Pt is currently out of room at MRI per .
--- NOTE | 2021-10-29 12:05 | CASEMGMT ---
LIBAN BENJAMIN Assessment: Face to Face with pt for initial transition planning/care coordination assessment. RN SOURAV introduced self and role at [facility], pt voices understanding and consents to assessment. Pt is A/O x4 and answers all questions appropriately at this time. Pt asks questions to be asked of as he just returned from MRI and does not feel well. Care providers, pharmacy, and demographics verified/updated. Admitting Dx: jaundice PCP:Germaine Gallo, KNIFE EDGER; [place] Specialists:Ana, cardio; Pepper HUGGINS, neurosurgery [facility] Insurance: MMO, MCR A Prescription Benefit: yes LW/HPOA: Pt denies having a LW/DPOA and denies need for info regarding AD. LNOK: Verenice Nguyen, Living Arrangements: Pt lives with in a single story duplex with 1 step to enter. Pt reports pt is I in ADL's and denies concerns at home. Transportation: Pt drives self and denies concerns with transportation. DME/HHC/SNF: Pt has a backup BGM with strips and supplies as well as a [place] sensor. Pt has insulin and supplies. Pt denies further DME. Pt denies hx of HHC or SNF stays. Pt states no concerns with going home at time of dc. Pt states his strength is good. Pt states no further concerns/needs. CM to follow. Advised pt to ask CM if any further question/concerns/needs arise, voices understanding. Pt Goal: Home Plan: Home
[2021-10-29] MEDS: Lisinopril 5 MG Tablet PO (13:16)
[2021-10-29] MEDS: Clopidogrel Bisulfate 75 MG Tablet PO (13:16)
[2021-10-29] MEDS: Aspirin 81 MG TAB.CHEW PO (13:16)
[2021-10-29] MEDS: Pantoprazole Sodium 40 MG Tablet PO (13:21)
[2021-10-29] MEDS: Carvedilol 6.25 MG Tablet PO ×2 (13:21→21:59)
[2021-10-29 13:36] LABS: Bedside Glucose 252 mg/dL (74-106)
--- NOTE | 2021-10-29 15:02 | EX.PCM.CON.S ---
Assessment & Plan Assessment/Plan (1) Cholelithiasis and cholecystitis without obstruction: QUALIFIERS: Cholelithiasis location: gallbladder Cholecystitis acuity: acute Qualified Code(s): K80.00 - Calculus of gallbladder with acute cholecystitis without obstruction PLAN: My plan is to perform a laparoscopic cholecystectomy with intraoperative cholangiogram. The planned surgical procedure was discussed extensively with the patient. The risks, benefits, anticipated outcomes and possible complication were mentioned. My staff has also explained the procedure in understandable terms and the patient was given the option to take printed material concerning the planned procedure. The patient had the opportunity to ask questions concerning the planned procedure. The patient freely consents to the planned procedure. HPI Consult Data Date of Consult: 10/29/21 HPI Narrative HPI Narrative: TOMMY JOSE, is a 66 M who presents to his primary care's office today for continued right upper quadrant abdominal pain as well as epigastric pain. His PCP felt that he was jaundiced so requested that he come to the hospital for further evaluation. He had been in the ER on the of this month with similar complaints and was discharged home after CT scan of his abdomen was negative and his labs were grossly normal, he did have a slight white count at that time. Now his total bilirubin is elevated to over 7 and his LFTs are also elevated. The ER did get in touch with gastroenterology who recommended an MRCP. Gallbladder ultrasound is unremarkable. No fevers or chills, lactic acid is slightly elevated but no current signs of infection. MRCP was ordered and findings showed: GALLBLADDER AND BILE DUCTS: Gallbladder again noted to be distended and associated with pericholecystic fluid/edema. A 2.4 cm segment of the proximal common bile duct noted to be narrowed raising the possibility of secondary change related to underlying gallbladder disease, Mirizzi syndrome. No evidence of common bile duct stone. [facility] Medical History Abdominal aneurysm Allergies Arthritis Diabetes Difficulty balancing Fibromyalgia Gastric paresis GERD (gastroesophageal reflux disease) H/O emotional problems Heart disease History of back problems HTN (hypertension) Irritable bowel disease Kidney stones Neuropathy Stroke Vascular disease Home Medications gabapentin 600 mg PO DAILY 05/31/14 [History Last Taken 02/25/17] aspirin 325 mg PO DAILY@0800 02/25/17 [History Last Taken 10/25/21] atorvastatin 40 mg PO QHS 02/25/17 [History Last Taken 10/25/21] clopidogrel 75 mg PO DAILY 02/25/17 [History Last Taken 10/25/21] insulin glargine 50 unit SQ BID 02/25/17 [History Last Taken 02/24/17] lisinopril 10 mg PO DAILY 02/25/17 [History Last Taken 02/25/17] oxycodone-acetaminophen 1 tab PO Q8H PRN PRN 02/25/17 [History Last Taken 02/24/17] insulin aspart U-100 100 unit/mL (3 mL) subcutaneous pen 20 unit SC TID ml 11/29/19 [History Last Taken Unknown] carvedilol [Coreg] 6.25 mg PO BID 10/28/21 [History Last Taken Unknown] fexofenadine [Enedelia] 180 mg PO DAILY 10/28/21 [History Last Taken Unknown] lidocaine [Lidoderm] 1 patch TOPICAL DAILY PRN 10/28/21 [History Last Taken Unknown] magnesium oxide 400 mg PO BID PRN 10/28/21 [History Last Taken Unknown] pantoprazole [Protonix] 40 mg PO DAILY 10/28/21 [History Last Taken Unknown] plecanatide [Trulance] 3 mg PO DAILY PRN 10/28/21 [History Last Taken Unknown] Allergy/AdvReac Type Severity Reaction Status Date / Time aripiprazole [From Abilify] Allergy Mild FELT POORLY Verified 10/28/21 16:39 atorvastatin [From Lipitor] Allergy muscle Verified 10/28/21 16:39 aches nabumetone [From Relafen] Allergy GI Verified 10/28/21 16:39 Family History Other Heart disease Surgical History H/O knee surgery Stented coronary artery Social History Smoking Status: Never smoker alcohol intake: never ROS Constitutional Constitutional: Denies chills or fever(s) Cardiovascular Cardiovascular: Denies chest pain or dyspnea Respiratory/Chest Respiratory/Chest: Denies cough or shortness of breath at rest Gastrointestinal Gastrointestinal: Reports abdominal pain and nausea; Denies constipation, diarrhea or vomiting Genitourinary Genitourinary: Denies change in urinary stream Physical Exam Const alert, oriented x3 and no apparent distress General Appearance: cooperative HEENT normocephalic and head/scalp atraumatic Eyes PERRL and EOMs intact bilaterally Resp clear to auscultation bilaterally Cardio Rate: regular rate Rhythm: regular rhythm GI soft to palpation Palpation: tender LUQ and RUQ; Negative for ascites Medical Records Data Medical Nutrition Assessment Dietitian: Malnutrition Criteria Met Start: 10/29/21 11:44 Freq: Status: Active Protocol: Document 10/29/21 11:44 AG (Rec: 10/29/21 11:45 AG [id number]) Nutrition Malnutrition Evidence of Malnutrition Exists Yes Malnutrition (severe): Acute Illness/Injury Evidenced By Suboptimal Energy Intake ( Severe),Weight Loss (Severe) Clinical Problem Acute Disease or Injury Related Malnutrition Etiology severe, acute malnutrition r/t GI dysfunction Signs/Symptoms as evidenced by unintentional wt loss 14.6#/5.5% wt loss x 1 week, estimated PO intake meeting <50% of estimated energy needs x 5 days Status Active Problem Recommendation Dietitian Recommendations/Changes recommend CHO controlled, cardiac diet as tolerated; will monitor need for ONS as PO diet advanced. Lab / Micro Data Result Diagrams: 10/29/21 05:55 10/29/21 05:55 Labs: Laboratory Results - last 24 hr 10/28/21 17:00: WBC 9.6, RBC 5.28, Hgb 17.0 H, Hct 48.9, MCV 92.6, MCH 32.2 H, MCHC 34.8, RDW Std Deviation 43.8, RDW Coeff of Destiny 12.8, Plt Count 226, MPV 11.2, Immature Gran % (Auto) 0.500, Neut % (Auto) 83.2 H, Lymph % (Auto) 6.5 L, [place] % (Auto) 6.6, Eos % (Auto) 2.5, Baso % (Auto) 0.7, Absolute Neuts (auto) 7.9 H, Absolute Lymphs (auto) 0.62 L, Nucleated RBC % 0 10/28/21 17:00: Sodium 134 L, Potassium 4.1, Chloride 98, Carbon Dioxide 26.0, Anion Gap 10, BUN 31 H, Creatinine 1.48 H, Estim Creat Clear Calc 46.29, Est GFR (MDRD) Af Amer 61, Est GFR (MDRD) Non-Af 51 L, BUN/Creatinine Ratio 20.9 H, Glucose 315 H, Calcium 9.1, Total Bilirubin 7.30 H, Direct Bilirubin 5.18 H, AST 113 H, ALT 131 H, Alkaline Phosphatase 258 H, Total Protein 7.1, Albumin 3.4, Globulin 3.7, Amylase 20 L, Lipase 73 10/28/21 17:00: Lactic Acid 2.4 H* 10/28/21 17:00: PT 15.6 H, INR 1.3 10/28/21 17:00: Ferritin 2122 H, GGT 591 H 10/28/21 17:05: Ammonia 27.0 10/28/21 18:10: Monoscreen Negative 10/28/21 18:39: Urine Color Leila, Urine Clarity Clear, Urine pH 6.0, Ur Specific [place] 1.020, Urine Protein 15 H, Urine Glucose (UA) 1000 H, Urine Ketones 15 H, Urine Occult Blood 10 H, Urine Nitrite Positive H, Urine Bilirubin 6 H, Urine Urobilinogen 12 H, Ur Leukocyte Esterase 25 H, Urine RBC 0 SEEN, Urine WBC 0 SEEN, Ur Squamous Epith Cells 0-5 SEEN, Urine Bacteria RARE, Urine Mucus 0 SEEN 10/28/21 22:18: POC Glucose 245 H 10/28/21 23:10: Lactic Acid 1.4 10/29/21 00:54: POC Glucose 251 H 10/29/21 05:55: WBC 5.9, RBC 4.60, Hgb 14.4, Hct 43.3, MCV 94.1 H, MCH 31.3, MCHC 33.3, RDW Std Deviation 43.8, RDW Coeff of Destiny 12.8, Plt Count 166, MPV 11.1, Immature Gran % (Auto) 0.500, Neut % (Auto) 75.6 H, Lymph % (Auto) 9.1 L, [place] % (Auto) 9.4, Eos % (Auto) 4.7, Baso % (Auto) 0.7, Absolute Neuts (auto) 4.5, Absolute Lymphs (auto) 0.54 L, Nucleated RBC % 0, Differential Comment SCANNED 10/29/21 05:55: Sodium 135 L, Potassium 3.9, Chloride 102, Carbon Dioxide 26.0, Anion Gap 7, BUN 27 H, Creatinine 1.05, Estim Creat Clear Calc 83.83, Est GFR (MDRD) Af Amer 91, Est GFR (MDRD) Non-Af 75, BUN/Creatinine Ratio 25.7 H, Glucose 228 H, Calcium 8.0 L, Total Bilirubin 5.40 H, AST 106 H, ALT 120 H, Alkaline Phosphatase 226 H, Total Protein 5.7 L, Albumin 2.7 L, Globulin 3.0, Albumin/Globulin Ratio 0.9 10/29/21 06:19: POC Glucose 201 H 10/29/21 13:20: POC Glucose 252 H Radiology Impression Gallbladder Ultrasound 10/28/21 16:56 IMPRESSION: without evidence of contour nodularity. No evidence of focal hepatic mass. 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 Electronically Signed: Alejandro Holloway MD at 12:47 EDT ,
--- NOTE | 2021-10-29 15:09 | EKG12_ITS ---
Test Reason : PREOP Blood Pressure : / mmHG Vent. Rate : 071 BPM Atrial Rate : 071 BPM P-R Int : 218 ms QRS Dur : 132 ms QT Int : 468 ms P-R-T Axes : 033 -54 112 degrees QTc Int : 508 ms Sinus rhythm with 1st degree A-V block Right bundle branch block Left anterior fascicular block Bifascicular block Left ventricular hypertrophy with repolarization abnormality Abnormal ECG Confirmed by KEYLA LECHUGA, HUMZA ([id number]), legal editor AISHA ROSS ([id number]) on 11/02/2021 11:19:50 AM Referred By: JUAN Confirmed By:HUMZA RAMIRES MD
[2021-10-29 15:30] VITALS: BP 134/74; PULSE 75; RESP 18; TEMP 36.4; O2SAT 97
--- NOTE | 2021-10-29 16:04 | PCM.HOSP.N ---
Hospitalist Note MRCP obtained as part of patient's evaluation demonstrated common bile duct narrowing secondary to underlying cholecystitis and assessment of Mirizzi syndrome made. Consult subsequently placed to general surgery Case discussed with Dr. Landeros. Plan is for patient to undergo cholecystectomy in a.m.
--- NOTE | 2021-10-29 16:36 | PCM.CONS.GEN ---
Assessment & Plan Assessment/Plan (1) Bile duct obstruction: PLAN: Bile duct obstruction likely secondary to either the cystic duct or the gallbladder compressing the common bile duct. He will undergo a cholecystectomy with intraoperative cholangiogram. Hopefully he does not have any stricturing disease that would require ERCP with possible stent placement however it is a possibility. I will be following closely and I am in contact with general surgery if he develops any problems I will be happy to assist. HPI Consult Data Date of Consult: 10/29/21 HPI Narrative HPI Narrative: TOMMY JOSE, is a 66 M who presents with worsening right upper quadrant pain. He has a past medical history of diabetes, long cardiac history, chronic pain, fibromyalgia presents to the emergency department with continuing epigastric pain, right upper quadrant abdominal pain presents the emergency department with jaundice. His PCP who is overseeing this patient's care called the emergency department he like him to be reevaluated. He was told that he was developing worsening jaundice. Patient states that still have pain, denies any fevers or chills, denies any light-colored stools. Patient currently still has his gallbladder, patient denies any fevers or chills. His outpatient labs were consistent with a severe cholestatic hepatitis with jaundice. In the ED , he was afebrile and his white blood cell count was normal. An ultrasound was ordered right upper quadrant it did not show any significant ductal dilation but it did show an enlarged gallbladder with mild gallbladder wall thickening. He had a CT scan abdomen pelvis did not show any significant abnormalities in the hepatobiliary system. I requested an MRCP. The MRCP shows an enlarged gallbladder possibly compressing the the mid common bile duct. He is being seen by general surgery for a cholecystectomy in the a.[facility] Medical History Abdominal aneurysm Allergies Arthritis Diabetes Difficulty balancing Fibromyalgia Gastric paresis GERD (gastroesophageal reflux disease) H/O emotional problems Heart disease History of back problems HTN (hypertension) Irritable bowel disease Kidney stones Neuropathy Stroke Vascular disease Home Medications gabapentin 600 mg PO DAILY 05/31/14 [History Last Taken 02/25/17] aspirin 325 mg PO DAILY@0800 02/25/17 [History Last Taken 10/25/21] atorvastatin 40 mg PO QHS 02/25/17 [History Last Taken 10/25/21] clopidogrel 75 mg PO DAILY 02/25/17 [History Last Taken 10/25/21] insulin glargine 50 unit SQ BID 02/25/17 [History Last Taken 02/24/17] lisinopril 10 mg PO DAILY 02/25/17 [History Last Taken 02/25/17] oxycodone-acetaminophen 1 tab PO Q8H PRN PRN 02/25/17 [History Last Taken 02/24/17] insulin aspart U-100 100 unit/mL (3 mL) subcutaneous pen 20 unit SC TID ml 11/29/19 [History Last Taken Unknown] carvedilol [Coreg] 6.25 mg PO BID 10/28/21 [History Last Taken Unknown] fexofenadine [Enedelia] 180 mg PO DAILY 10/28/21 [History Last Taken Unknown] lidocaine [Lidoderm] 1 patch TOPICAL DAILY PRN 10/28/21 [History Last Taken Unknown] magnesium oxide 400 mg PO BID PRN 10/28/21 [History Last Taken Unknown] pantoprazole [Protonix] 40 mg PO DAILY 10/28/21 [History Last Taken Unknown] plecanatide [Trulance] 3 mg PO DAILY PRN 10/28/21 [History Last Taken Unknown] Allergy/AdvReac Type Severity Reaction Status Date / Time aripiprazole [From Abilify] Allergy Mild FELT POORLY Verified 10/28/21 16:39 atorvastatin [From Lipitor] Allergy muscle Verified 10/28/21 16:39 aches nabumetone [From Relafen] Allergy GI Verified 10/28/21 16:39 Family History Other Heart disease Surgical History H/O knee surgery Stented coronary artery Social History Smoking Status: Never smoker alcohol intake: never ROS Gastrointestinal Gastrointestinal: Reports abdominal pain Physical Exam Const alert General Appearance: cooperative Orientation / Consciousness: oriented to person HEENT hearing grossly normal bilaterally Head and Scalp: normal to inspection Face and Sinus: face symmetric Nose: external nose normal Mouth: oral and palatal mucosa normal Eyes conjunctivae normal General Eye: normal appearance of both eyes Neck full ROM General: normal visual inspection Lymph Lymphatic: no lymphadenopathy noted Chest inspection of chest normal and palpation of chest normal Chest: symmetrical chest wall rise Resp normal respiratory effort Effort and Inspection: able to speak in complete sentences Cardio regular rate GI non-distended Percussion: normal to percussion Rectal Exam: deferred Neuro Speech: speech normal Gait (Neuro): normal gait Medical Records Data Medical Nutrition Assessment Dietitian: Malnutrition Criteria Met Start: 10/29/21 11:44 Freq: Status: Active Protocol: Document 10/29/21 11:44 AG (Rec: 10/29/21 11:45 AG [id number]) Nutrition Malnutrition Evidence of Malnutrition Exists Yes Malnutrition (severe): Acute Illness/Injury Evidenced By Suboptimal Energy Intake ( Severe),Weight Loss (Severe) Clinical Problem Acute Disease or Injury Related Malnutrition Etiology severe, acute malnutrition r/t GI dysfunction Signs/Symptoms as evidenced by unintentional wt loss 14.6#/5.5% wt loss x 1 week, estimated PO intake meeting <50% of estimated energy needs x 5 days Status Active Problem Recommendation Dietitian Recommendations/Changes recommend CHO controlled, cardiac diet as tolerated; will monitor need for ONS as PO diet advanced. Lab / Micro Data Result Diagrams: 10/29/21 05:55 10/29/21 05:55 Labs: Laboratory Results - last 24 hr 10/28/21 17:00: WBC 9.6, RBC 5.28, Hgb 17.0 H, Hct 48.9, MCV 92.6, MCH 32.2 H, MCHC 34.8, RDW Std Deviation 43.8, RDW Coeff of Destiny 12.8, Plt Count 226, MPV 11.2, Immature Gran % (Auto) 0.500, Neut % (Auto) 83.2 H, Lymph % (Auto) 6.5 L, [place] % (Auto) 6.6, Eos % (Auto) 2.5, Baso % (Auto) 0.7, Absolute Neuts (auto) 7.9 H, Absolute Lymphs (auto) 0.62 L, Nucleated RBC % 0 10/28/21 17:00: Sodium 134 L, Potassium 4.1, Chloride 98, Carbon Dioxide 26.0, Anion Gap 10, BUN 31 H, Creatinine 1.48 H, Estim Creat Clear Calc 46.29, Est GFR (MDRD) Af Amer 61, Est GFR (MDRD) Non-Af 51 L, BUN/Creatinine Ratio 20.9 H, Glucose 315 H, Calcium 9.1, Total Bilirubin 7.30 H, Direct Bilirubin 5.18 H, AST 113 H, ALT 131 H, Alkaline Phosphatase 258 H, Total Protein 7.1, Albumin 3.4, Globulin 3.7, Amylase 20 L, Lipase 73 10/28/21 17:00: Lactic Acid 2.4 H* 10/28/21 17:00: PT 15.6 H, INR 1.3 10/28/21 17:00: Ferritin 2122 H, GGT 591 H 10/28/21 17:05: Ammonia 27.0 10/28/21 18:10: Monoscreen Negative 10/28/21 18:39: Urine Color Leila, Urine Clarity Clear, Urine pH 6.0, Ur Specific [place] 1.020, Urine Protein 15 H, Urine Glucose (UA) 1000 H, Urine Ketones 15 H, Urine Occult Blood 10 H, Urine Nitrite Positive H, Urine Bilirubin 6 H, Urine Urobilinogen 12 H, Ur Leukocyte Esterase 25 H, Urine RBC 0 SEEN, Urine WBC 0 SEEN, Ur Squamous Epith Cells 0-5 SEEN, Urine Bacteria RARE, Urine Mucus 0 SEEN 10/28/21 22:18: POC Glucose 245 H 10/28/21 23:10: Lactic Acid 1.4 10/29/21 00:54: POC Glucose 251 H 10/29/21 05:55: WBC 5.9, RBC 4.60, Hgb 14.4, Hct 43.3, MCV 94.1 H, MCH 31.3, MCHC 33.3, RDW Std Deviation 43.8, RDW Coeff of Destiny 12.8, Plt Count 166, MPV 11.1, Immature Gran % (Auto) 0.500, Neut % (Auto) 75.6 H, Lymph % (Auto) 9.1 L, [place] % (Auto) 9.4, Eos % (Auto) 4.7, Baso % (Auto) 0.7, Absolute Neuts (auto) 4.5, Absolute Lymphs (auto) 0.54 L, Nucleated RBC % 0, Differential Comment SCANNED 10/29/21 05:55: Sodium 135 L, Potassium 3.9, Chloride 102, Carbon Dioxide 26.0, Anion Gap 7, BUN 27 H, Creatinine 1.05, Estim Creat Clear Calc 83.83, Est GFR (MDRD) Af Amer 91, Est GFR (MDRD) Non-Af 75, BUN/Creatinine Ratio 25.7 H, Glucose 228 H, Calcium 8.0 L, Total Bilirubin 5.40 H, AST 106 H, ALT 120 H, Alkaline Phosphatase 226 H, Total Protein 5.7 L, Albumin 2.7 L, Globulin 3.0, Albumin/Globulin Ratio 0.9 10/29/21 06:19: POC Glucose 201 H 10/29/21 13:20: POC Glucose 252 H Radiology Impression Gallbladder Ultrasound 10/28/21 16:56 IMPRESSION: without evidence of contour nodularity. No evidence of focal hepatic mass. 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 Electronically Signed: Alejandro Holloway MD at 12:47 EDT , Charges/Coding Visit Charges Inpatient E&M: 15227 Init Hosp L2
[2021-10-29 17:26] LABS: Bedside Glucose 245 mg/dL (74-106)
[2021-10-29 20:04] VITALS: BP 110/67; PULSE 79; RESP 15; TEMP 36.8; O2SAT 97
[2021-10-29] MEDS: Atorvastatin Calcium 40 MG Tablet PO (22:00)
[2021-10-29 22:11] LABS: Bedside Glucose 213 mg/dL (74-106)
[2021-10-29 23:56] LABS: Bedside Glucose 200 mg/dL (74-106)
[2021-10-30] VITALS (11 sets, daily range): BP systolic 100–152; BP diastolic 56–79; PULSE 65–80; RESP 14–18; TEMP 36.2–37; O2SAT 95–99; BMI 30.9
[2021-10-30] MEDS: 0.9% Normal Saline 1,000 ML 100 ML IV ×3 (02:12→21:29)
[2021-10-30] MEDS: Insulin Lispro 100 UNIT/ML INSULN.PEN SC ×4 (06:10→21:37)
[2021-10-30 06:21] LABS: Bedside Glucose 228 mg/dL (74-106)
[2021-10-30 07:08] LABS: HEPATITIS B SURFACE AG Negative (Negative); Hepatitis A IgM Antibody Negative (Negative); Hepatitis B Core AB IgM Negative (Negative)
[2021-10-30 07:33] LABS: Hematocrit 43.4 % (40-54); Hemoglobin 14.6 g/dL (13.0-16.5); Mean Corp Hgb Conc 33.6 g/dL (32-36); Mean Corpuscular Hgb 31.9 pg (27.0-32.0); Mean Platelet Vol. 11.6 fl (6.2-12.0); Platelet Count 151 K/mm3 (150-450); RBC Distribution Width CV 13.2 % (11.6-14.6); RBC Distribution Width SD 46.2 fl (35.1-43.9); Red Blood Count 4.57 M/mm3 (4.6-6.2); White Blood Count 4.8 K/mm3 (4.4-11.0)
--- NOTE | 2021-10-30 07:39 | PN.HOSP_ITS ---
Subjective Subjective MRCP obtained as part of patient's evaluation demonstrated common bile duct narrowing secondary to underlying cholecystitis and assessment of Mirizzi syndrome made. Consult subsequently placed to general surgery Case discussed with Dr. Landeros. Plan is for patient to undergo laparoscopic cholecystectomy with intraoperative cholangiogram Objective Data Objective Data Vital Signs: Vital Signs Temp Pulse Resp BP Pulse Ox 98.5 F 69 15 141/63 H 98 10/30/21 06:59 10/30/21 06:59 10/30/21 06:59 10/30/21 06:59 10/30/21 06:59 Oxygen Delivery Method Room Air Weight: 113 kg Body Mass Index (BMI) 30.9 Intake & Output: Intake and Output for Last 24 Hours 10/28/21 10/29/21 10/30/21 23:59 23:59 23:59 Intake Total 1000 / 1000 2081.66 / 2081.66 1265 / 1265 Output Total 1050 / 1050 Balance 1000 / 1000 1031.66 / 1031.66 1265 / 1265 Medical Nutrition Assessment Dietitian: Malnutrition Criteria Met Start: 10/29/21 11:44 Freq: Status: Active Protocol: Document 10/29/21 11:44 AG (Rec: 10/29/21 11:45 AG [id number]) Nutrition Malnutrition Evidence of Malnutrition Exists Yes Malnutrition (severe): Acute Illness/Injury Evidenced By Suboptimal Energy Intake ( Severe),Weight Loss (Severe) Clinical Problem Acute Disease or Injury Related Malnutrition Etiology severe, acute malnutrition r/t GI dysfunction Signs/Symptoms as evidenced by unintentional wt loss 14.6#/5.5% wt loss x 1 week, estimated PO intake meeting <50% of estimated energy needs x 5 days Status Active Problem Recommendation Dietitian Recommendations/Changes recommend CHO controlled, cardiac diet as tolerated; will monitor need for ONS as PO diet advanced. Lab / Micro Data Result Diagrams: 10/30/21 06:30 10/30/21 06:30 Labs: Laboratory Results - last 24 hr 10/29/21 13:20: POC Glucose 252 H 10/29/21 17:20: POC Glucose 245 H 10/29/21 21:54: POC Glucose 213 H 10/29/21 23:48: POC Glucose 200 H 10/30/21 06:05: POC Glucose 228 H 10/30/21 06:30: WBC 4.8, RBC 4.57 L, Hgb 14.6, Hct 43.4, MCV 95.0 H, MCH 31.9, MCHC 33.6, RDW Std Deviation 46.2 H, RDW Coeff of Destiny 13.2, Plt Count 151, MPV 11.6 Radiography Diagnostic Testing: Radiology Impression MRCP 10/29/21 10:58 IMPRESSION: Common bile duct narrowing secondary to underlying cholecystitis, Mirizzi syndrome. Electronically Signed: Alejandro Holloway MD at 12:47 EDT , Physical Exam Narrative GENERAL: cooperative HEENT: Atraumatic; EYES; icteric, Normal Conjunctiva NECK; supple, normal thyroid, RESPIRATORY: Diminished to auscultation CARDIOVASCULAR: Regular S1 S2, GI: soft, normoactive bowel sounds, : No Renal angle tenderness; EXTREMITIES: No edema, no clubbing, MUSCULOSKELETAL: no muscle wasting NEURO: Awake; no lateralizing signs. SKIN: No Rash PSYCH; Flat affect Assessment & Plan Assessment/Plan (1) Jaundice: PLAN: Patient is a 66-year-old gentleman with multiple comorbidities including coronary artery disease, diabetes mellitus type 2 who was sent to the ED by the primary care physician on account of nausea and vomiting as well as patient being jaundiced. Her diagnostic work-up in the ED did reveal abnormal LFTs. Ultrasound of the gallbladder was basically unremarkable. Patient has been admitted to regular nursing floor for subsequent work-up 1. Abnormal LFTs ? Patient presented with nonspecific symptoms including abdominal pain, nausea and vomiting. Was found to have abnormal LFTs on admission. Initial imaging studies with an ultrasound of the gallbladder unremarkable an MRI of the abdomen subsequently ordered for further evaluation. As part of patient's work-up did obtain acute hepatitis panel as well as IJEOMA with reflex panel to rule out autoimmune hepatitis. Consult has also been placed to GI to assist with evaluation -10/30/2021 MRCP obtained as part of patient's evaluation demonstrated common bile duct narrowing secondary to underlying cholecystitis and assessment of Melanie zzi syndrome made. Consult subsequently placed to general surgery Case discussed with Dr. Landeros. Plan is for patient to undergo laparoscopic cholecystectomy with intraoperative cholangiogram 2. Diabetes mellitus type 2 ? With complications including gastroparesis held patient oral agent did co ntinue with his insulin regimen with Accu-Cheks before meals and at bedtime with sliding scale coverage 3. Coronary artery disease ? Patient has history of previous CABG with subsequent PCI with stent placement did continue with patient home medications 4. Hypertension - Blood pressure controlled, home medications continued with dose adjustment as needed 5. Dyslipidemia -Patient is on statin therapy, continued at home dose 6. Class I obesity with BMI of 30.9 ? Weight loss advised 7. Abnormal urinalysis ? Patient had proteinuria, glycosuria positive urine nitrite as well as elevated leukocyte esterase. With patient experiencing nausea and fatigue patient was started on Rocephin did request for urine culture 8. DVT prophylaxis ? Erwinx Charges/Coding Visit Charges Inpatient E&M: 45655 Subs Hosp L3
--- NOTE | 2021-10-30 08:00 | GALL_PTH ---
PATIENT: TOMMY JOSE LOC: [facility]3 U#:[id number] AGE/SX: 66/M ROOM: [facility]318 RE10/28/[address]: Dr. Gina Carreon DO : 1955 BED: 1 DIS: 11/02/2021 SPEC #: [id number] RECD: 11/01/21 07:46 STATUS: MAURA RERenan #: [id number] LETICIA: 10/30/21 08:[address]: Jose Martin Landeros DEPT: SURGICAL PATHOLOGY RECD BY: Yoana Ruth ENTERED: 11/01/21 08:39 SP TYPE: GALLBLADDE OTHR DR: MD Dr. Gina Carlson DO Dr. 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 Marked reactive changes. See comment. SJ:henri 11/02/2021 COMMENT No stones are identified in the container or in the gallbladder. MICROSCOPIC DESCRIPTION Slides are reviewed. GROSS DESCRIPTION Received is one container labeled with the patient's name and designated gallbladder. The specimen consists of a gallbladder measuring 10 cm in length and up to 5.5 cm in diameter. The external surface is pink-broussard, smooth and glistening for the most part. Focally it is granular, hemorrhagic and contains cautery artifact. The gallbladder contains hemorrhagic mucoid bile. No stones are identified in the container or in the gallbladder. The mucosa is bile-stained and without any mass lesions. The gallbladder wall measures up to 0.8 cm in thickness. Vertica Architect sections from the gallbladder and the cystic duct are submitted in two cassettes. / GUIDO:henri 11/01/2021 TC:2 CPT: 18055
[2021-10-30 08:01] LABS: AST(SGOT) 97 U/L (15-37); Alanine Aminotransfer ALT/SGPT 129 U/L (16-61); Albumin, Serum 2.6 g/dL (3.2-5.0); Alkaline Phosphatase 289 U/L (45-117); Anion Gap 6 (5-15); BUN 22 mg/dL (7-18); BUN/Creat Ratio 20.2 RATIO (10-20); Bilirubin, Direct 3.08 mg/dL (0.00-0.30); Calcium,Total 8.3 mg/dL (8.5-10.1); Chloride 103 mmol/L (98-107); Creatinine, Serum 1.09 mg/dL (0.70-1.30); EST Glomerular Filtration Rate 72 mL/min (>60); Est Glom Filt Rate - Afr Amer 87 mL/min (>60); Estimated Creatinine Clearance 80.75 ml/min; Globulin 3.1 g/dL (2.2-4.2); Glucose 232 mg/dL (74-106); Magnesium 2.1 mg/dL (1.6-2.6); Potassium 3.9 mmol/L (3.5-5.1); Protein, Total 5.7 g/dL (6.4-8.2); Sodium Level 135 mmol/L (136-145)
[2021-10-30 08:07] LABS: Hemoglobin A1c 8.1 % (3.8-5.6)
[2021-10-30] MEDS: Lactated Ringers 1,000 ML 30 ML IV (08:15)
[2021-10-30] MEDS: Bupivacaine 0.25% 30 ML Vial (08:30)
--- NOTE | 2021-10-30 09:28 | PCM.OPRPT ---
Problems Associated Problem List Diagnoses (1) Cholelithiasis and cholecystitis without obstruction: (2) Mirizzi's syndrome: Report of Operation Date of Procedure: 10/30/21 Pre-Operative Diagnosis: 1. Mirizzi syndrome 2. Acute calculus cholecystitis Post-Operative Diagnosis: Same Surgery/Procedure Performed:: Laparoscopic cholecystectomy Surgeon: Leti stitchdown toe former: Ptarick Josue Type of Anesthesia: General Anesthesiologist: Angel Santoro Specimen's removed: Gallbladder Drains: #15 round REBEKAH Estimated Blood Loss (mL): 100 cc Description of Procedure: Patient was brought into the operating room. Placed in the supine position. Under excellent general anesthetic the abdomen was sterilely prepped and draped in usual fashion. Local was injected infraumbilically. Dissection was carried down to the fascia. The fascia is grasped with a [place]. Varies needle was placed inside the abdomen. The abdomen was insufflated to 15 torr. A 10/12 trocar was placed without difficulty. Patient was placed in the head up and rotated to the left position. Subxiphoid #5 trochars placed, inferior to this another #5 trochars placed, laterally a #5 trocar was placed. All these were placed under direct visualization without injury to underlying structures. Patient was noted to have dense adhesions on the gallbladder I took these down I aspirated out the gallbladder and sent the fluid for culture and sensitivity. I grasped the fundus of the gallbladder and retracted in cephalad direction and then dissected off the omentum from the gallbladder itself. The gallbladder had patchy areas of significant necrosis identified. It took quite a bit of time dissecting down at the cystic duct. It was essentially only about 3 to 4 mm in length. The gallbladder itself was plastered onto the hepatic duct I was able to dissect the cystic duct and cystic artery free as well as identify the gallbladder off of the liver itself. This was every bit as miserable as Mirizzi syndrome is. Significant adhesions and took quite a bit of time and careful dissection. I placed 2 hemoclips distally on the duct I had no more room to put another clip on the gallbladder itself so I just ligated off of the gallbladder itself. I placed hemoclips proximally and distally on the artery ligated this identified the posterior branch placed another Hemoclip and I use electrocautery to start to deliver the gallbladder. The gallbladder itself essentially peeled off of the liver bed I placed it in a specimen bag and delivered through the umbilical port without difficulty. I used the argon beam clinical education academic coordinator to obtain good hemostasis on the liver bed I placed Angélica in the liver bed and then a 15 round Jose-Muniz drain through the lateral port suturing it to the skin with a 3-0 nylon. I had achieved good hemostasis on the liver bed itself. I removed the trochars under direct visualization good with stasis was noted. Fascia the umbilical port was closed with a [id number] stitch of 0 Vicryl x2 skin incisions were brought together with subcuticular 4-0 Monocryl. Steri-Strips were applied sterile dressings were applied and the patient tolerated the procedure well. Admit VTE Documentation VTE Present on Admission: No VTE Mechan Device Prophylaxis: SCD's VTE Pharm Prophylaxis ordered?: Yes
[2021-10-30 10:15] LABS: Bedside Glucose 227 mg/dL (74-106)
[2021-10-30 11:16] LABS: Bedside Glucose 225 mg/dL (74-106)
[2021-10-30 11:24] LABS: Hep C Antibodies 0.2 s/co ratio (0.0-0.9)
[2021-10-30] MEDS: Lisinopril 5 MG Tablet PO (13:50)
[2021-10-30] MEDS: Pantoprazole Sodium 40 MG Tablet PO (13:50)
[2021-10-30] MEDS: cycloBENZAPRine HCl 10 MG Tablet PO (13:50)
[2021-10-30] MEDS: Carvedilol 6.25 MG Tablet PO (13:50)
[2021-10-30] MEDS: Loratadine 10 MG Tablet PO (13:51)
[2021-10-30] MEDS: Ondansetron 4 MG/2 ML Vial IV (13:56)
[2021-10-30] MEDS: 0.9% Saline Lock 10 ML Syringe IV ×3 (13:56→21:35)
[2021-10-30] MEDS: Morphine 4 MG/ML Syringe IV (14:15)
[2021-10-30 16:45] LABS: Bedside Glucose 192 mg/dL (74-106)
[2021-10-30] MEDS: Acetaminophen 500 MG Tablet 1000 MG PO (18:02)
[2021-10-30] MEDS: Atorvastatin Calcium 40 MG Tablet PO (21:24)
[2021-10-30] MEDS: Insulin Glargine-YFGN 100 UNIT/ML Pen 40 UNIT SC (21:35)
[2021-10-30 22:05] LABS: Bedside Glucose 236 mg/dL (74-106)
[2021-10-31 04:32] VITALS: BP 131/68; PULSE 72; RESP 20; TEMP 36.7; O2SAT 94
[2021-10-31] MEDS: Acetaminophen 500 MG Tablet 1000 MG PO ×2 (04:40→15:14)
[2021-10-31] MEDS: oxyCODONE 5 MG Tablet PO ×2 (04:41→20:13)
[2021-10-31] MEDS: Insulin Lispro 100 UNIT/ML INSULN.PEN SC ×4 (05:18→22:04)
[2021-10-31 06:18] LABS: Hematocrit 39.8 % (40-54); Hemoglobin 13.6 g/dL (13.0-16.5); Mean Corp Hgb Conc 34.2 g/dL (32-36); Mean Corpuscular Hgb 32.2 pg (27.0-32.0); Mean Corpuscular Volume 94.3 fL (80-94); Mean Platelet Vol. 10.9 fl (6.2-12.0); Platelet Count 147 K/mm3 (150-450); RBC Distribution Width CV 13.3 % (11.6-14.6); RBC Distribution Width SD 46.6 fl (35.1-43.9); Red Blood Count 4.22 M/mm3 (4.6-6.2)
[2021-10-31 06:45] LABS: ALB/GLOB Ratio 0.8 RATIO (0.9-2.4); AST(SGOT) 98 U/L (15-37); Alanine Aminotransfer ALT/SGPT 116 U/L (16-61); Albumin, Serum 2.3 g/dL (3.2-5.0); Alkaline Phosphatase 322 U/L (45-117); Anion Gap 6 (5-15); BUN 16 mg/dL (7-18); BUN/Creat Ratio 16.6 RATIO (10-20); Bilirubin, Direct 2.72 mg/dL (0.00-0.30); Calcium,Total 7.7 mg/dL (8.5-10.1); Chloride 104 mmol/L (98-107); Creatinine, Serum 0.96 mg/dL (0.70-1.30); EST Glomerular Filtration Rate 83 mL/min (>60); Est Glom Filt Rate - Afr Amer 101 mL/min (>60); Estimated Creatinine Clearance 91.69 ml/min; Glucose 185 mg/dL (74-106); Potassium 3.9 mmol/L (3.5-5.1); Protein, Total 5.3 g/dL (6.4-8.2); Sodium Level 135 mmol/L (136-145)
--- NOTE | 2021-10-31 07:29 | PN.HOSP_ITS ---
Subjective Subjective Patient underwent laparoscopic cholecystectomy on 10/30/[address] Landeros Objective Data Objective Data Vital Signs: Vital Signs Temp Pulse Resp BP Pulse Ox 98.1 F 72 20 H 131/68 H 94 10/31/21 04:32 10/31/21 04:32 10/31/21 04:32 10/31/21 04:32 10/31/21 04:32 Oxygen Delivery Method Room Air Weight: 113 kg Body Mass Index (BMI) 30.9 Intake & Output: Intake and Output for Last 24 Hours 10/29/21 10/30/21 10/31/21 23:59 23:59 23:59 Intake Total 2081.66 / 2081.66 4366 / 4366 50 / 50 Output Total 1050 / 1050 375 / 375 440 / 440 Balance 1031.66 / 1031.66 3991 / 3991 -390 / -390 Medical Nutrition Assessment Dietitian: Malnutrition Criteria Met Start: 10/29/21 11:44 Freq: Status: Active Protocol: Document 10/29/21 11:44 AG (Rec: 10/29/21 11:45 [id number]) Nutrition Malnutrition Evidence of Malnutrition Exists Yes Malnutrition (severe): Acute Illness/Injury Evidenced By Suboptimal Energy Intake ( Severe),Weight Loss (Severe) Clinical Problem Acute Disease or Injury Related Malnutrition Etiology severe, acute malnutrition r/t GI dysfunction Signs/Symptoms as evidenced by unintentional wt loss 14.6#/5.5% wt loss x 1 week, estimated PO intake meeting <50% of estimated energy needs x 5 days Status Active Problem Recommendation Dietitian Recommendations/Changes recommend CHO controlled, cardiac diet as tolerated; will monitor need for ONS as PO diet advanced. Lab / Micro Data Result Diagrams: 10/31/21 05:45 10/31/21 05:45 Labs: Laboratory Results - last 24 hr 10/28/21 18:39: Hepatitis A IgM Ab Negative, Hep Bs Antigen Negative, Hep B Core IgM Ab Negative, Hepatitis C Ab (EIA) 0.2 10/30/21 06:30: WBC 4.8, RBC 4.57 L, Hgb 14.6, Hct 43.4, MCV 95.0 H, MCH 31.9, MCHC 33.6, RDW Std Deviation 46.2 H, RDW Coeff of Destiny 13.2, Plt Count 151, MPV 11.6 10/30/21 06:30: Sodium 135 L, Potassium 3.9, Chloride 103, Carbon Dioxide 26.0, Anion Gap 6, BUN 22 H, Creatinine 1.09, Estim Creat Clear Calc 80.75, Est GFR (M DRD) Af Amer 87, Est GFR (MDRD) Non-Af 72, BUN/Creatinine Ratio 20.2 H, Glucose 232 H, Calcium 8.3 L, Magnesium 2.1, Total Bilirubin 4.40 H, Direct Bilirubin 3.08 H, AST 97 H, ALT 129 H, Alkaline Phosphatase 289 H, Total Protein 5.7 L, Albumin 2.6 L, Globulin 3.1 10/30/21 06:30: Hemoglobin A1c 8.1 H 10/30/21 10:10: POC Glucose 227 H 10/30/21 11:11: POC Glucose 225 H 10/30/21 16:33: POC Glucose 192 H 10/30/21 21:34: POC Glucose 236 H 10/31/21 05:45: WBC 7.0, RBC 4.22 L, Hgb 13.6, Hct 39.8 L, MCV 94.3 H, MCH 32.2 H, MCHC 34.2, RDW Std Deviation 46.6 H, RDW Coeff of Destiny 13.3, Plt Count 147 L, MPV 10.9 10/31/21 05:45: Sodium 135 L, Potassium 3.9, Chloride 104, Carbon Dioxide 25.0, Anion Gap 6, BUN 16, Creatinine 0.96, Estim Creat Clear Calc 91.69, Est GFR (MDRD) Af Amer 101, Est GFR (MDRD) Non-Af 83, BUN/Creatinine Ratio 16.6, Glucose 185 H, Calcium 7.7 L, Total Bilirubin 3.70 H, Direct Bilirubin 2.72 H, AST 98 H, ALT 116 H, Alkaline Phosphatase 322 H, Total Protein 5.3 L, Albumin 2.3 L, Globulin 3.0, Albumin/Globulin Ratio 0.8 L Micro: Microbiology 10/29/21 Unknown Urine, Midstream Urine Culture - Final Mixed Gram Positive Organisms Physical Exam Narrative GENERAL: cooperative HEENT: Atraumatic; EYES; icteric, Normal Conjunctiva NECK; supple, normal thyroid, RESPIRATORY: Diminished to auscultation CARDIOVASCULAR: Regular S1 S2, GI: soft, normoactive bowel sounds, surgical dressing right upper quadrant : No Renal angle tenderness; EXTREMITIES: No edema, no clubbing, MUSCULOSKELETAL: no muscle wasting NEURO: Awake; no lateralizing signs. SKIN: No Rash PSYCH; Flat affect Assessment & Plan Assessment/Plan (1) Jaundice: PLAN: Patient is a 66-year-old gentleman with multiple comorbidities including coronary artery disease, diabetes mellitus type 2 who was sent to the ED by the primary care physician on account of nausea and vomiting as well as patient being jaundiced. Her diagnostic work-up in the ED did reveal abnormal LFTs. Ultrasound of the gallbladder was basically unremarkable. Patient has been admitted to regular nursing floor for subsequent work-up 1. Acute acalculous cholecystitis with Mirizzi syndrome ? Patient presented with nonspecific symptoms including abdominal pain, nausea and vomiting. Was found to have abnormal LFTs on admission. Initial imaging studies with an ultrasound of the gallbladder unremarkable an MRI of the abdomen subsequently ordered for further evaluation. As part of patient's work-up did obtain acute hepatitis panel as well as IJEOMA with reflex panel to rule out autoimmune hepatitis. Consult has also been placed to GI to assist with evaluation -10/30/2021 MRCP obtained as part of patient's evaluation demonstrated common bile duct narrowing secondary to underlying cholecystitis and assessment of Mirizzi syndrome made. Consult subsequently placed to general surgery Case discussed with Dr. Landeros. Plan is for patient to undergo laparoscopic cholecystectomy with intraoperative cholangiogram ? 10/31/2021; patient underwent laparoscopic cholecystectomy on 10/30/[address] Landeros 2. Diabetes mellitus type 2 ? With complications including gastroparesis held patient oral agent did continue with his insulin regimen with Accu-Cheks before meals and at bedtime with sliding scale coverage 3. Coronary artery disease ? Patient has history of previous CABG with subsequent PCI with stent placement did continue with patient home medications 4. Hypertension - Blood pressure controlled, home medications continued with dose adjustment as needed 5. Dyslipidemia -Patient is on statin therapy, continued at home dose 6. Class I obesity with BMI of 30.9 ? Weight loss advised 7. Abnormal urinalysis ? Patient had proteinuria, glycosuria positive urine nitrite as well as elevated leukocyte esterase. With patient experiencing nausea and fatigue patient was started on Rocephin did request for urine culture 8. DVT prophylaxis ? Lovenox Charges/Coding Visit Charges Inpatient E&M: 15854 Subs Hosp L2
[2021-10-31 08:06] VITALS: BP 142/72; PULSE 78; RESP 18; TEMP 36.6; O2SAT 98
--- NOTE | 2021-10-31 08:57 | PN.SURG_ITS ---
Subjective Subjective Pain has improved. Not complaining of any nausea or vomiting. REBEKAH drain has significantly slowed down Objective Data Objective Data Serous fluid from REBEKAH drain. Dressings are dry. Abdomen is soft. Vital Signs: Vital Signs Temp Pulse Resp BP Pulse Ox 97.9 F 78 18 142/72 H 98 10/31/21 08:06 10/31/21 08:06 10/31/21 08:06 10/31/21 08:06 10/31/21 08:06 Oxygen Delivery Method Room Air Weight: 249 lb 1.957 oz Body Mass Index (BMI) 30.9 Intake & Output: Intake and Output for Last 24 Hours 10/29/21 10/30/21 10/31/21 23:59 23:59 23:59 Intake Total 2081.66 / 2081.66 4366 / 4366 230.25 / 230.25 Output Total 1050 / 1050 375 / 375 440 / 440 Balance 1031.66 / 1031.66 3991 / 3991 -209.75 / -209.75 Medical Nutrition Assessment Dietitian: Malnutrition Criteria Met Start: 10/29/21 11:44 Freq: Status: Active Protocol: Document 10/29/21 11:44 AG (Rec: 10/29/21 11:45 AG [id number]) Nutrition Malnutrition Evidence of Malnutrition Exists Yes Malnutrition (severe): Acute Illness/Injury Evidenced By Suboptimal Energy Intake ( Severe),Weight Loss (Severe) Clinical Problem Acute Disease or Injury Related Malnutrition Etiology severe, acute malnutrition r/t GI dysfunction Signs/Symptoms as evidenced by unintentional wt loss 14.6#/5.5% wt loss x 1 week, estimated PO intake meeting <50% of estimated energy needs x 5 days Status Active Problem Recommendation Dietitian Recommendations/Changes recommend CHO controlled, cardiac diet as tolerated; will monitor need for ONS as PO diet advanced. Lab / Micro Data Result Diagrams: 10/31/21 05:45 10/31/21 05:45 Labs: Laboratory Results - last 24 hr 10/28/21 18:39: Hepatitis A IgM Ab Negative, Hep Bs Antigen Negative, Hep B Core IgM Ab Negative, Hepatitis C Ab (EIA) 0.2 10/30/21 10:10: POC Glucose 227 H 10/30/21 11:11: POC Glucose 225 H 10/30/21 16:33: POC Glucose 192 H 10/30/21 21:34: POC Glucose 236 H 10/31/21 05:45: WBC 7.0, RBC 4.22 L, Hgb 13.6, Hct 39.8 L, MCV 94.3 H, MCH 32.2 H, MCHC 34.2, RDW Std Deviation 46.6 H, RDW Coeff of Destiny 13.3, Plt Count 147 L, MPV 10.9 10/31/21 05:45: Sodium 135 L, Potassium 3.9, Chloride 104, Carbon Dioxide 25.0, Anion Gap 6, BUN 16, Creatinine 0.96, Estim Creat Clear Calc 91.69, Est GFR ( MDRD) Af Amer 101, Est GFR (MDRD) Non-Af 83, BUN/Creatinine Ratio 16.6, Glucose 185 H, Calcium 7.7 L, Total Bilirubin 3.70 H, Direct Bilirubin 2.72 H, AST 98 H, ALT 116 H, Alkaline Phosphatase 322 H, Total Protein 5.3 L, Albumin 2.3 L, Globulin 3.0, Albumin/Globulin Ratio 0.8 L Micro: Microbiology 10/29/21 Unknown Urine, Midstream Urine Culture - Final Mixed Gram Positive Organisms Assessment & Plan Assessment/Plan (1) Mirizzi's syndrome: PLAN: Postoperative day #1 status post laparoscopic cholecystectomy. I was unable to do a cholangiogram due to the short nature of the cystic duct. His liver function test have come down slightly however they still remain signif icantly high at this time. This may be due to this to some significant swelling all along the hepatic and common bile duct. Nevertheless we will discuss the case with the human service coordinator so that he can evaluate this patient tomorrow. REBEKAH drain will remain in place
[2021-10-31 09:06] LABS: Bedside Glucose 192 mg/dL (74-106)
[2021-10-31] MEDS: Carvedilol 6.25 MG Tablet PO ×2 (11:07→20:15)
[2021-10-31] MEDS: Loratadine 10 MG Tablet PO (11:07)
[2021-10-31] MEDS: Lisinopril 5 MG Tablet PO (11:07)
[2021-10-31] MEDS: Pantoprazole Sodium 40 MG Tablet PO (11:07)
[2021-10-31 12:12] VITALS: BP 119/63; PULSE 71; RESP 18; TEMP 36.7; O2SAT 98
[2021-10-31 12:41] LABS: Bedside Glucose 231 mg/dL (74-106)
[2021-10-31] MEDS: 0.9% Normal Saline 1,000 ML 100 ML IV (15:10)
[2021-10-31 15:17] VITALS: BP 138/72; PULSE 71; RESP 18; TEMP 37; O2SAT 98
[2021-10-31 16:50] LABS: Bedside Glucose 201 mg/dL (74-106)
--- NOTE | 2021-10-31 17:18 | PCM.PROGNOTE ---
Subjective Subjective Patient under went a successful cholecystectomy yesterday. Patient says that he was not having that much drainage but as per him and his his drainage has increased and he is had it fully drained in the last 4 hours 2 times. Objective Data Objective Data Vital Signs: Vital Signs Temp Pulse Resp BP Pulse Ox 98.6 F 71 18 138/72 H 98 10/31/21 15:17 10/31/21 15:17 10/31/21 15:17 10/31/21 15:17 10/31/21 15:17 Oxygen Delivery Method Room Air Weight: 249 lb 1.957 oz Body Mass Index (BMI) 30.9 Intake & Output: Intake and Output for Last 24 Hours 10/29/21 10/30/21 10/31/21 23:59 23:59 23:59 Intake Total 2081.66 / 2081.66 4366 / 4366 1350.25 / 1350.25 Output Total 1050 / 1050 375 / 375 990 / 990 Balance 1031.66 / 1031.66 3991 / 3991 360.25 / 360.25 Medical Nutrition Assessment Dietitian: Malnutrition Criteria Met Start: 10/29/21 11:44 Freq: Status: Active Protocol: Document 10/29/21 11:44 AG (Rec: 10/29/21 11:45 AG [id number]) Nutrition Malnutrition Evidence of Malnutrition Exists Yes Malnutrition (severe): Acute Illness/Injury Evidenced By Suboptimal Energy Intake ( Severe),Weight Loss (Severe) Clinical Problem Acute Disease or Injury Related Malnutrition Etiology severe, acute malnutrition r/t GI dysfunction Signs/Symptoms as evidenced by unintentional wt loss 14.6#/5.5% wt loss x 1 week, estimated PO intake meeting <50% of estimated energy needs x 5 days Status Active Problem Recommendation Dietitian Recommendations/Changes recommend CHO controlled, cardiac diet as tolerated; will monitor need for ONS as PO diet advanced. Lab / Micro Data Result Diagrams: 10/31/21 05:45 10/31/21 05:45 Labs: Laboratory Results - last 24 hr 10/30/21 21:34: POC Glucose 236 H 10/31/21 05:17: POC Glucose 192 H 10/31/21 05:45: WBC 7.0, RBC 4.22 L, Hgb 13.6, Hct 39.8 L, MCV 94.3 H, MCH 32.2 H, MCHC 34.2, RDW Std Deviation 46.6 H, RDW Coeff of Destiny 13.3, Plt Count 147 L, MPV 10.9 10/31/21 05:45: Sodium 135 L, Potassium 3.9, Chloride 104, Carbon Dioxide 25.0, Anion Gap 6, BUN 16, Creatinine 0.96, Estim Creat Clear Calc 91.69, Est GFR (MDRD) Af Amer 101, Est GFR (MDRD) Non-Af 83, BUN/Creatinine Ratio 16.6, Glucose 185 H, Calcium 7.7 L, Total Bilirubin 3.70 H, Direct Bilirubin 2.72 H, AST 98 H, ALT 116 H, Alkaline Phosphatase 322 H, Total Protein 5.3 L, Albumin 2.3 L, Globulin 3.0, Albumin/Globulin Ratio 0.8 L 10/31/21 11:59: POC Glucose 231 H 10/31/21 16:28: POC Glucose 201 H Micro: Microbiology 10/30/21 09:51 Incision/Surgical Site Gram Stain - Final 10/30/21 09:51 Incision/Surgical Site Wound Culture - Preliminary No growth-Final to follow 10/29/21 Unknown Urine, Midstream Urine Culture - Final Mixed Gram Positive Organisms Physical Exam Const alert General Appearance: cooperative Orientation / Consciousness: oriented to person HEENT hearing grossly normal bilaterally Head and Scalp: normal to inspection Face and Sinus: face symmetric Nose: external nose normal Mouth: oral and palatal mucosa normal Eyes conjunctivae normal General Eye: normal appearance of both eyes Neck full ROM General: normal visual inspection Lymph Lymphatic: no lymphadenopathy noted Chest inspection of chest normal and palpation of chest normal Chest: symmetrical chest wall rise Resp normal respiratory effort Effort and Inspection: able to speak in complete sentences Cardio regular rate GI non-distended Percussion: normal to percussion Rectal Exam: deferred Neuro Speech: speech normal Gait (Neuro): normal gait Assessment & Plan Assessment/Plan (1) Mirizzi's syndrome: PLAN: I had a long conversation around 30 minutes with the patient and his regarding his options. 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 His LFTs continue to improve which is good however he is still only on a liquid diet. Recommend to keep him n.p.o. past midnight and if it is deemed necessary we can perform an ERCP with stent placement tomorrow. Charges/Coding Visit Charges Inpatient E&M: 33114 Subs Hosp L2
[2021-10-31 20:11] VITALS: BP 176/87; PULSE 72; RESP 18; TEMP 36.4; O2SAT 97
[2021-10-31] MEDS: Atorvastatin Calcium 40 MG Tablet PO (20:15)
[2021-10-31] MEDS: Ondansetron 4 MG/2 ML Vial IV (21:57)
[2021-10-31] MEDS: Insulin Glargine-YFGN 100 UNIT/ML Pen 40 UNIT SC (22:02)
[2021-10-31 22:25] LABS: Bedside Glucose 196 mg/dL (74-106)
[2021-11-01] VITALS (15 sets, daily range): BP systolic 103–188; BP diastolic 54–91; PULSE 67–80; RESP 16–18; TEMP 36–37.1; O2SAT 96–98; BMI 30.9
[2021-11-01] MEDS: 0.9% Normal Saline 1,000 ML 100 ML IV ×3 (00:52→19:53)
[2021-11-01 06:26] LABS: Hematocrit 41.5 % (40-54); Hemoglobin 14.1 g/dL (13.0-16.5); Mean Corpuscular Volume 94.1 fL (80-94); Mean Platelet Vol. 10.7 fl (6.2-12.0); Platelet Count 159 K/mm3 (150-450); RBC Distribution Width CV 13.2 % (11.6-14.6); RBC Distribution Width SD 45.9 fl (35.1-43.9); Red Blood Count 4.41 M/mm3 (4.6-6.2); White Blood Count 7.2 K/mm3 (4.4-11.0)
[2021-11-01 06:53] LABS: AST(SGOT) 97 U/L (15-37); Alanine Aminotransfer ALT/SGPT 128 U/L (16-61); Albumin, Serum 2.4 g/dL (3.2-5.0); Alkaline Phosphatase 472 U/L (45-117); Anion Gap 5 (5-15); BUN 11 mg/dL (7-18); BUN/Creat Ratio 12.2 RATIO (10-20); Chloride 102 mmol/L (98-107); EST Glomerular Filtration Rate 89 mL/min (>60); Est Glom Filt Rate - Afr Amer 108 mL/min (>60); Globulin 3.3 g/dL (2.2-4.2); Glucose 144 mg/dL (74-106); Potassium 3.5 mmol/L (3.5-5.1); Protein, Total 5.7 g/dL (6.4-8.2); Sodium Level 135 mmol/L (136-145)
[2021-11-01 07:10] LABS: Bedside Glucose 146 mg/dL (74-106)
[2021-11-01] MEDS: Lisinopril 5 MG Tablet PO (08:38)
[2021-11-01] MEDS: Carvedilol 6.25 MG Tablet PO ×2 (08:38→20:25)
--- NOTE | 2021-11-01 10:45 | PCM.PN.SRG ---
Subjective Subjective Patient still complaining of appropriate pain. Tolerating liquids. Objective Data Objective Data REBEKAH drain still serosanguineous. Abdomen is soft and appropriately tender at incision sites Vital Signs: Vital Signs Temp Pulse Resp BP Pulse Ox 98.3 F 74 18 188/74 H 98 11/01/21 08:30 11/01/21 08:30 11/01/21 09:00 11/01/21 08:30 11/01/21 08:30 Oxygen Delivery Method Room Air Weight: 249 lb 1.957 oz Body Mass Index (BMI) 30.9 Intake & Output: Intake and Output for Last 24 Hours 10/30/21 10/31/21 11/01/21 23:59 23:59 23:59 Intake Total 4366 / 4366 1400.25 / 1400.25 1020 / 1020 Output Total 375 / 375 1390 / 1390 575 / 575 Balance 3991 / 3991 10.25 / 10. 445 / 445 Medical Nutrition Assessment Dietitian: Malnutrition Criteria Met Start: 10/29/21 11:44 Freq: Status: Active Protocol: Document 10/29/21 11:44 AG (Rec: 10/29/21 11:45 AG [id number]) Nutrition Malnutrition Evidence of Malnutrition Exists Yes Malnutrition (severe): Acute Illness/Injury Evidenced By Suboptimal Energy Intake ( Severe),Weight Loss (Severe) Clinical Problem Acute Disease or Injury Related Malnutrition Etiology severe, acute malnutrition r/t GI dysfunction Signs/Symptoms as evidenced by unintentional wt loss 14.6#/5.5% wt loss x 1 week, estimated PO intake meeting <50% of estimated energy needs x 5 days Status Active Problem Recommendation Dietitian Recommendations/Changes recommend CHO controlled, cardiac diet as tolerated; will monitor need for ONS as PO diet advanced. Lab / Micro Data Result Diagrams: 11/01/21 05:50 11/01/21 05:50 Labs: Laboratory Results - last 24 hr 10/31/21 11:59: POC Glucose 231 H 10/31/21 16:28: POC Glucose 201 H 10/31/21 21:55: POC Glucose 196 H 11/01/21 05:50: WBC 7.2, RBC 4.41 L, Hgb 14.1, Hct 41.5, MCV 94.1 H, MCH 32.0, MCHC 34.0, RDW Std Deviation 45.9 H, RDW Coeff of Destiny 13.2, Plt Count 159, MPV 10.7 11/01/21 05:50: Sodium 135 L, Potassium 3.5, Chloride 102, Carbon Dioxide 28.0, Anion Gap 5, BUN 11, Creatinine 0.90, Estim Creat Clear Calc 97.80, Est GFR (MDRD) Af Amer 108, Est GFR (MDRD) Non-Af 89, BUN/Creatinine Ratio 12.2, Glucose 144 H, Calcium 8.0 L, Total Bilirubin 3.40 H, Direct Bilirubin 2.40 H, AST 97 H, ALT 128 H, Alkaline Phosphatase 472 H, Total Protein 5.7 L, Albumin 2.4 L, Globulin 3.3 11/01/21 06:43: POC Glucose 146 H Micro: Microbiology 10/30/21 09:51 Incision/Surgical Site Gram Stain - Final 10/30/21 09:51 Incision/Surgical Site Wound Culture - Preliminary No growth-Final to follow 10/29/21 Unknown Urine, Midstream Urine Culture - Final Mixed Gram Positive Organisms Assessment & Plan Assessment/Plan (1) Mirizzi's syndrome: PLAN: Postoperative day #2. Liver function tests are still elevated. Have discussed with Dr. Toth who will reevaluate for possible ERCP. Patient will remain n.p.o. for the rest of the day.
--- NOTE | 2021-11-01 10:49 | PN.HOSP_ITS ---
Subjective Subjective Patient underwent a cholecystectomy on 10/30/2021 however a cholangiogram was difficult secondary to the anatomical shortness of the cystic duct. His liver functions trended down slightly however they have remained elevated and now trended slightly back up in the last 24 hours. Gastroenterology has evaluated the patient and the plan is for ERCP later today with probable stenting. The patient states that he is still having some diffuse abdominal pain related to the surgical sites and indicates that he is hungry. Objective Data Objective Data Vital Signs: Vital Signs Temp Pulse Resp BP Pulse Ox 98.3 F 74 18 188/74 H 98 11/01/21 08:30 11/01/21 08:30 11/01/21 09:00 11/01/21 08:30 11/01/21 08:30 Oxygen Delivery Method Room Air Weight: 113 kg Body Mass Index (BMI) 30.9 Intake & Output: Intake and Output for Last 24 Hours 10/30/21 10/31/21 11/01/21 23:59 23:59 23:59 Intake Total 4366 / 4366 1400.25 / 1400.25 1020 / 1020 Output Total 375 / 375 1390 / 1390 575 / 575 Balance 3991 / 3991 10.25 / 10.25 445 / 445 Medical Nutrition Assessment Dietitian: Malnutrition Criteria Met Start: 10/29/21 11:44 Freq: Status: Active Protocol: Document 10/29/21 11:44 AG (Rec: 10/29/21 11:45 AG [id number]) Nutrition Malnutrition Evidence of Malnutrition Exists Yes Malnutrition (severe): Acute Illness/Injury Evidenced By Suboptimal Energy Intake ( Severe),Weight Loss (Severe) Clinical Problem Acute Disease or Injury Related Malnutrition Etiology severe, acute malnutrition r/t GI dysfunction Signs/Symptoms as evidenced by unintentional wt loss 14.6#/5.5% wt loss x 1 week, estimated PO intake meeting <50% of estimated energy needs x 5 days Status Active Problem Recommendation Dietitian Recommendations/Changes recommend CHO controlled, cardiac diet as tolerated; will monitor need for ONS as PO diet advanced. Lab / Micro Data Result Diagrams: 11/01/21 05:50 11/01/21 05:50 Labs: Laboratory Results - last 24 hr 10/31/21 11:59: POC Glucose 231 H 10/31/21 16:28: POC Glucose 201 H 10/31/21 21:55: POC Glucose 196 H 11/01/21 05:50: WBC 7.2, RBC 4.41 L, Hgb 14.1, Hct 41.5, MCV 94.1 H, MCH 32.0, M CHC 34.0, RDW Std Deviation 45.9 H, RDW Coeff of Destiny 13.2, Plt Count 159, MPV 10.7 11/01/21 05:50: Sodium 135 L, Potassium 3.5, Chloride 102, Carbon Dioxide 28.0, Anion Gap 5, BUN 11, Creatinine 0.90, Estim Creat Clear Calc 97.80, Est GFR (MDRD) Af Amer 108, Est GFR (MDRD) Non-Af 89, BUN/Creatinine Ratio 12.2, Glucose 144 H, Calcium 8.0 L, Total Bilirubin 3.40 H, Direct Bilirubin 2.40 H, AST 97 H, ALT 128 H, Alkaline Phosphatase 472 H, Total Protein 5.7 L, Albumin 2.4 L, Globulin 3.3 11/01/21 06:43: POC Glucose 146 H Micro: Microbiology 10/30/21 09:51 Incision/Surgical Site Gram Stain - Final 10/30/21 09:51 Incision/Surgical Site Wound Culture - Preliminary No growth-Final to follow 10/29/21 Unknown Urine, Midstream Urine Culture - Final Mixed Gram Positive Organisms Physical Exam Const alert, oriented x3 and no apparent distress Constitutional Narrative: Obese upper middle-aged white male sitting up in bed, watching television, appears nontoxic but uncomfortable at this time, nursing at the bedside Exam Limitations: no limitations Nutritional Appearance: obese HEENT head/scalp atraumatic and moist oral mucous membranes HEENT Narrative: Dentition is fair for age, Mallampati is 2-3, no thrush present Head and Scalp: normocephalic Eyes PERRL, EOMs intact bilaterally and conjunctivae normal Eyes Narrative: No icterus Resp normal respiratory effort, no use of accessory muscles and clear to auscultation bilaterally Auscultation: Negative for crackles, rales, rhonchi or wheezes Cardio regular rate, regular rhythm, S1 normal heart sound, S2 normal heart sound, no murmurs, no rub, no gallops, no clicks and no JVD GI GI Narrative: Dressings in place, REBEKAH drain with serosanguineous drainage in place, mild diffuse tenderness, incision sites clean and dry Extremity no clubbing, cyanosis or edema Peripheral Pulses: Yes pulses 2+ throughout Neuro oriented x3, CN's II-XII intact bilaterally, moves all extremities and no focal motor deficits Sensorium / Orientation: awake and alert Speech: speech normal Psych Psych Narrative: Very pleasant and appropriately interactive Assessment & Plan Assessment/Plan (1) Mirizzi's syndrome: (2) MEHRAN (acute kidney injury): PLAN: Acute calculus cholecystitis with Mirizzi Syndrome -LFTs are slightly up again today -Alk phos is trended up greater than 400 again -Bilirubin remains elevated -Postop day 2 lap jeramy without cholangiogram secondary to short nature of cystic duct -Anticipate ERCP later today -Continue IV fluids -Patient to remain n.p.o. -Surgical wound cultures are negative -Continue Zosyn per general surgery -Appreciate general surgery and GI input MEHRAN -Resolved DM-2 -Continue Lantus 40 units at at bedtime--> baseline Lantus dose is 50 units twice daily -Continue sliding scale -Home scheduled log is on hold until p.o. diet can be established--> takes 20 units 3 times daily with meals -Continue Accu-Cheks as ordered -A.m. fasting glucose was 144 Gastroparesis -Monitor once p.o. diet initiated -Complication of DM-2 Diabetic neuropathy -Continue gabapentin CAD/hypertension/hyperlipidemia -Continue home aspirin -Continue home atorvastatin -Continue home Plavix -Continue home carvedilol -Continue home lisinopril GERD -Continue PPI Obesity -BMI 31 -Recommend weight loss -Complicates treatment, prognosis, outcomes DVT prophylaxis -Continue enoxaparin 40 units daily Charges/Coding Visit Charges Inpatient E&M: 07734 Subs Hosp L2
[2021-11-01 11:06] LABS: Bedside Glucose 142 mg/dL (74-106)
[2021-11-01 16:16] LABS: Bedside Glucose 127 mg/dL (74-106)
--- NOTE | 2021-11-01 17:45 | RAD_ITS ---
EXAM: [place] CHOLANGIOGRAPHY AND/OR PANCREATOGRAPHY CLINICAL INDICATION: ERCP TECHNIQUE: 6 total images are provided. 2.2 minutes fluoroscopic time. COMPARISON: None. FINDINGS: LIMITATIONS: Only the common duct and 6 central intrahepatic ducts are opacified. Slight opacification of distal cystic duct remnant. Nonopacification of pancreatic duct. GALLBLADDER: Not present or not filled. BILE DUCTS: No intraluminal filling defects typical of choledocholithiasis are identified. BOWEL: Unremarkable. Injected contrast is identified in the duodenum. RAD/ERCP Biliary Only IMPRESSION: No choledocholithiasis or significant biliary distention. Electronically Signed: Lory Bernal MD at 22:13 EDT ,
--- NOTE | 2021-11-01 18:39 | OP.CCLET_ITS ---
11/01/2021 Jairo Quinn Re : ERCP procedure for Shane Montaño Cleo This procedure was performed on Monday, November 01, 2021. My impressions and recommendations are as follows: Impressions : - A single moderate biliary stricture was found in the lower third of the main bile duct. The stricture was indeterminate. - The entire main bile duct was dilated, uncertain significance. - The patient has had a cholecystectomy. - A biliary sphincterotomy was performed. - The biliary tree was swept and sludge was found. - One stent was placed into the common bile duct. Recommendations : My findings are described in the full procedure note, which is enclosed. If I can be of further assistance, please feel free to contact me at . Sincerely, Osmin Toth, 11/01/2021 6:38:50 PM This report has been signed electronically.
--- NOTE | 2021-11-01 18:39 | OP.ERCP_ITS ---
Patient Name: Shane Nguyen Procedure Date: 11/01/2021 5:13 PM Date of : 1955 Age: 66 Procedure: ERCP Indications: Jaundice Providers: Osmin Toth DO Medicines: General Anesthesia, See the Anesthesia note for documentation of the administered medications Patient Profile: This is a 66 year old male. Refer to note in patient chart for documentation of history and physical. Patient has symptoms of acute right upper quadrant abdominal pain. He is status post laparoscopic cholecystectomy recently. Complications: No immediate complications. Procedure: Pre-Anesthesia Assessment: - Prior to the procedure, a History and Physical was performed, and patient medications and allergies were reviewed. The patient is competent. The risks and benefits of the procedure and the sedation options and risks were discussed with the patient. All questions were answered and informed consent was obtained. Patient identification and proposed procedure were verified by the physician in the pre-procedure area. Mental Status Examination: alert and oriented. Airway Examination: normal oropharyngeal airway and neck mobility. Respiratory Examination: clear to auscultation. CV Examination: normal. Prophylactic Antibiotics: The patient does not require prophylactic antibiotics. Prior Anticoagulants: The patient has taken no previous anticoagulant or antiplatelet agents. ASA Grade Assessment: II - A patient with mild systemic disease. After reviewing the risks and benefits, the patient was deemed in satisfactory condition to undergo the procedure. The anesthesia plan was to use moderate sedation / analgesia (conscious sedation). Immediately prior to administration of medications, the patient was re-assessed for adequacy to receive sedatives. The heart rate, respiratory rate, oxygen saturations, blood pressure, adequacy of pulmonary ventilation, and response to care were monitored throughout the procedure. The physical status of the patient was re-assessed after the procedure. After obtaining informed consent, the scope was passed under direct vision. Throughout the procedure, the patient's blood pressure, pulse, and oxygen saturations were monitored continuously. The duodenoscope was introduced through the mouth, and advanced to the duodenum and used to inject contrast into the bile duct. The ERCP was accomplished without difficulty. The patient tolerated the procedure well. Moderate Sedation: Moderate (conscious) sedation was administered by the endoscopy nurse and supervised by the endoscopist. The patient's oxygen saturation, heart rate, blood pressure and response to care were monitored. Total physician intraservice time was 15 minutes. Scope In: 5:46:47 PM Scope Out: 6:22:06 PM Total Procedure Duration Time 0 hours 35 minutes 19 seconds Findings: The flaring machine operator film was normal. The esophagus was successfully intubated under direct vision. The scope was advanced to a normal major papilla in the descending duodenum without detailed examination of the pharynx, larynx and associated structures, and upper GI tract. The upper GI tract was grossly normal. The bile duct was deeply cannulated with the short-nosed traction sphincterotome. Contrast was injected. I personally interpreted the bile duct images. The flow of contrast through the ducts was poor. Opacification of the biliary pancreatic junction was successful. The maximum diameter of the ducts was 7 mm. The lower third of the main bile duct contained a single moderate stenosis 6 mm in length. The main bile duct was diffusely dilated, uncertain significance. The largest diameter was 5 mm. A cholecystectomy had been performed. A 5 mm biliary sphincterotomy was made with a traction (standard) sphincterotome using ERBE electrocautery. There was no post-sphincterotomy bleeding. The biliary tree was swept with a 15 mm balloon starting at the bifurcation. Sludge was swept from the duct. One 7 Fr by 5 cm stent with a single internal flap was placed 5 cm into the common bile duct. Bile flowed through the stent. The stent was in good position. Impression: - A single moderate biliary stricture was found in the lower third of the main bile duct. The stricture was indeterminate. - The entire main bile duct was dilated, uncertain significance. - The patient has had a cholecystectomy. - A biliary sphincterotomy was performed. - The biliary tree was swept and sludge was found. - One stent was placed into the common bile duct. Procedure Code(s): --- Professional --- 88325, Endoscopic retrograde cholangiopancreatography (ERCP); with placement of endoscopic stent into biliary or pancreatic duct, including pre- and post-dilation and guide wire passage, when performed, including sphincterotomy, when performed, each stent [id number], Endoscopic retrograde cholangiopancreatography (ERCP); with removal of calculi/debris from biliary/pancreatic duct(s) 75885, Endoscopic catheterization of the biliary ductal system, radiological supervision and interpretation G0500, Moderate sedation services provided by the same physician or other qualified health career center advisor performing a gastrointestinal endoscopic service that sedation supports, requiring the presence of an independent trained observer to assist in the monitoring of the patient's level of consciousness and physiological status; initial 15 minutes of intra-service time; patient age 5 years or older (additional time may be reported with 74064, as appropriate) CPT copyright 2017 [employer]. All rights reserved. The codes documented in this report are preliminary and upon ward maid review may be revised to meet current compliance requirements. Osmin Toth DO 11/01/2021 6:38:50 PM This report has been signed electronically. Number of Addenda: 0 Note Initiated On: 11/01/2021 5:13 PM
[2021-11-01 18:55] LABS: Bedside Glucose 132 mg/dL (74-106)
[2021-11-01] MEDS: hydrALAZINE 20 MG/ML Vial 10 MG IV (19:53)
[2021-11-01] MEDS: Acetaminophen 500 MG Tablet 1000 MG PO (20:25)
[2021-11-01] MEDS: Atorvastatin Calcium 40 MG Tablet PO (20:25)
[2021-11-01] MEDS: Insulin Glargine-YFGN 100 UNIT/ML Pen 40 UNIT SC (22:41)
[2021-11-01] MEDS: Insulin Lispro 100 UNIT/ML INSULN.PEN SC (22:43)
[2021-11-01 23:10] LABS: Bedside Glucose 212 mg/dL (74-106)
[2021-11-02 00:29] VITALS: BP 95/46; PULSE 82; RESP 18; TEMP 36.6; O2SAT 94
[2021-11-02 03:16] VITALS: BP 120/65; PULSE 77; RESP 18; TEMP 36.5; O2SAT 96
[2021-11-02 06:19] LABS: Absolute Lymphocyte Count 0.53 X10^3/uL (0.83-4.51); Absolute Neutrophil Count 5.9 X10^3/uL (2.0-7.7); Hematocrit 42.2 % (40-54); Hemoglobin 14.1 g/dL (13.0-16.5); Lymphocyte # 0.53 X10^3/ul (0.83-4.51); Lymphocyte % 7.9 % (19-41); Mean Corp Hgb Conc 33.4 g/dL (32-36); Mean Corpuscular Hgb 31.1 pg (27.0-32.0); Mean Platelet Vol. 10.5 fl (6.2-12.0); Monocyte# 0.22 X10^3/uL; Monocyte% 3.3 % (0-10); NRBC Flagged by Analyzer 0 % (0-5); Neutrophil # 5.88 X10^3/uL (2.7-7.7); Neutrophil % 87.6 % (47-70); POSITIVE DIFFERENTIAL YES; Platelet Count 176 K/mm3 (150-450); RBC Distribution Width CV 13.1 % (11.6-14.6); Red Blood Count 4.54 M/mm3 (4.6-6.2); White Blood Count 6.7 K/mm3 (4.4-11.0)
[2021-11-02 06:23] LABS: Differential Indicated SCAN CRITERIA MET
[2021-11-02 06:47] LABS: Differential Comment SCANNED; Reactive Lymphocyte RARE
[2021-11-02] MEDS: 0.9% Normal Saline 1,000 ML 100 ML IV (06:55)
[2021-11-02] MEDS: Acetaminophen 500 MG Tablet 1000 MG PO (06:55)
[2021-11-02] MEDS: Insulin Lispro 100 UNIT/ML INSULN.PEN SC ×2 (06:58→11:27)
[2021-11-02 07:00] LABS: Bedside Glucose 199 mg/dL (74-106)
[2021-11-02 07:01] LABS: ALB/GLOB Ratio 0.7 RATIO (0.9-2.4); AST(SGOT) 67 U/L (15-37); Alanine Aminotransfer ALT/SGPT 98 U/L (16-61); Albumin, Serum 2.3 g/dL (3.2-5.0); Alkaline Phosphatase 532 U/L (45-117); Anion Gap 7 (5-15); BUN 13 mg/dL (7-18); BUN/Creat Ratio 13.1 RATIO (10-20); Calcium,Total 8.4 mg/dL (8.5-10.1); Chloride 103 mmol/L (98-107); EST Glomerular Filtration Rate 80 mL/min (>60); Est Glom Filt Rate - Afr Amer 97 mL/min (>60); Estimated Creatinine Clearance 88.02 ml/min; Globulin 3.5 g/dL (2.2-4.2); Glucose 226 mg/dL (74-106); Potassium 4.3 mmol/L (3.5-5.1); Protein, Total 5.8 g/dL (6.4-8.2); Sodium Level 133 mmol/L (136-145)
[2021-11-02 07:02] VITALS: BP 117/62; PULSE 72; RESP 18; TEMP 37; O2SAT 97
--- NOTE | 2021-11-02 07:40 | PN_ITS ---
Subjective Subjective Patient said that he felt immediately better after undergoing stent placement yesterday. Patient said he woke up and he had no more pain in the right upper quadrant. He also said his nausea is better. He did eat a diet last night and had a small bowel movement. Biliary stricture was found during ERCP. Objective Data Objective Data Vital Signs: Vital Signs Temp Pulse Resp BP Pulse Ox 98.6 F 72 18 117/62 97 11/02/21 07:02 11/02/21 07:02 11/02/21 07:02 11/02/21 07:02 11/02/21 07:02 Oxygen Delivery Method Room Air Weight: 249 lb 1.957 oz Body Mass Index (BMI) 30.9 Intake & Output: Intake and Output for Last 24 Hours 10/31/21 11/01/21 11/02/21 23:59 23:59 23:59 Intake Total 1400.25 / 1400.25 3111.67 / 3211.67 1350 / 1350 Output Total 1390 / 1390 1435 / 2360 1500 / 1500 Balance 10.25 / 10.25 1676.67 / 851.67 -150 / -150 Medical Nutrition Assessment Dietitian: Malnutrition Criteria Met Start: 10/29/21 11:44 Freq: Status: Active Protocol: Document 10/29/21 11:44 AG (Rec: 10/29/21 11:45 AG [id number]) Nutrition Malnutrition Evidence of Malnutrition Exists Yes Malnutrition (severe): Acute Illness/Injury Evidenced By Suboptimal Energy Intake ( Severe),Weight Loss (Severe) Clinical Problem Acute Disease or Injury Related Malnutrition Etiology severe, acute malnutrition r/t GI dysfunction Signs/Symptoms as evidenced by unintentional wt loss 14.6#/5.5% wt loss x 1 week, estimated PO intake meeting <50% of estimated energy needs x 5 days Status Active Problem Recommendation Dietitian Recommendations/Changes recommend CHO controlled, cardiac diet as tolerated; will monitor need for ONS as PO diet advanced. Lab / Micro Data Result Diagrams: 11/02/21 05:58 11/02/21 05:58 Labs: Laboratory Results - last 24 hr 11/01/21 11:02: POC Glucose 142 H 11/01/21 16:11: POC Glucose 127 H 11/01/21 18:49: POC Glucose 132 H 11/01/21 22:40: POC Glucose 212 H 11/02/21 05:58: WBC 6.7, RBC 4.54 L, Hgb 14.1, Hct 42.2, MCV 93.0, MCH 31.1, MCHC 33.4, RDW Std Deviation 45.0 H, RDW Coeff of Destiny 13.1, Plt Count 176, MPV 10.5, Immature Gran % (Auto) 1.200 H, Neut % (Auto) 87.6 H, Lymph % (Auto) 7.9 L , [place] % (Auto) 3.3, Eos % (Auto) 0.0, Baso % (Auto) 0.0, Absolute Neuts (auto) 5.9, Absolute Lymphs (auto) 0.53 L, Nucleated RBC % 0, Differential Comment SCANNED, Reactive Lymphocytes RARE 11/02/21 05:58: Sodium 133 L, Potassium 4.3, Chloride 103, Carbon Dioxide 23.0, Anion Gap 7, BUN 13, Creatinine 1.00, Estim Creat Clear Calc 88.02, Est GFR (MDRD) Af Amer 97, Est GFR (MDRD) Non-Af 80, BUN/Creatinine Ratio 13.1, Glucose 226 H, Calcium 8.4 L, Total Bilirubin 2.70 H, AST 67 H, ALT 98 H, Alkaline Phosphatase 532 H, Total Protein 5.8 L, Albumin 2.3 L, Globulin 3.5, Albumin/Globulin Ratio 0.7 L 11/02/21 06:58: POC Glucose 199 H Micro: Microbiology 10/30/21 09:51 Incision/Surgical Site Gram Stain - Final 10/30/21 09:51 Incision/Surgical Site Wound Culture - Final No growth aerobically. 10/30/21 09:51 Incision/Surgical Site Anaerobic Culture - Preliminary Checking for anaerobes, further studies to follow. 10/29/21 Unknown Urine, Midstream Urine Culture - Final Mixed Gram Positive Organisms Radiography Diagnostic Testing: Radiology Impression ERCP X-Ray 11/01/21 17:45 IMPRESSION: No choledocholithiasis or significant biliary distention. Electronically Signed: Lory Bernal MD at 22:13 EDT , Physical Exam Const alert General Appearance: cooperative Orientation / Consciousness: oriented to person HEENT hearing grossly normal bilaterally Head and Scalp: normal to inspection Face and Sinus: face symmetric Nose: external nose normal Mouth: oral and palatal mucosa normal Eyes conjunctivae normal General Eye: normal appearance of both eyes Neck full ROM General: normal visual inspection Lymph Lymphatic: no lymphadenopathy noted Chest inspection of chest normal and palpation of chest normal Chest: symmetrical chest wall rise Resp normal respiratory effort Effort and Inspection: able to speak in complete sentences Cardio regular rate GI non-distended Percussion: normal to percussion Rectal Exam: deferred Neuro Speech: speech normal Gait (Neuro): normal gait Assessment & Plan Assessment/Plan (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 Patient is not having any abdominal pain. He can likely get his REBEKAH drain removed as he is having minimal to no drainage. There were no signs of defect at the level of the cystic duct seen on occlusion cholangiogram during ERCP. (2) MEHRAN (acute kidney injury): PLAN: Acute kidney injury secondary to dehydration. It is resolving with diet and IV fluids. (3) Biliary stricture: PLAN: Biliary stricture likely secondary to chronic cholecystitis. H owever he will need to undergo CA 19-9 testing, ERCP with biopsies via spyglass when he can go off of Plavix for couple days. Continue to advance diet. Monitor labs as an outpatient. Patient can be discharged as per GI. Charges/Coding Visit Charges Inpatient E&M: 97320 Subs Hosp L3
[2021-11-02] MEDS: Lisinopril 5 MG Tablet PO (08:02)
[2021-11-02] MEDS: Pantoprazole Sodium 40 MG Tablet PO (08:02)
[2021-11-02] MEDS: Carvedilol 6.25 MG Tablet PO (08:02)
[2021-11-02] MEDS: Loratadine 10 MG Tablet PO (08:02)
[2021-11-02] MEDS: Insulin Glargine-YFGN 100 UNIT/ML Pen 30 UNIT SC (08:03)
--- NOTE | 2021-11-02 10:58 | EX.PCM.DISCH ---
Discharge Instructions Procedure Gallbladder Diet Discharge Diet: Light diet - advance as tolerated Activity Discharge Activity: May Not Drive (for 2-3 days or while taking narcotic pain medications.) and - (Do not drive, work heavy equipment or sign legal documents for 24 hours.) May shower in (days): 1 (with the bandage in place.) Additional Activity Instructions:: Pain medication may cause nausea. You should typically eat light foods as you take your pain medications. Pain medication may also cause constipation. If this is a problem for you, please discuss with your doctor. Dressing / Incision Call your doctor if your incision/area has: Continuous Slow Oozing, Sudden Increased Bleeding, Increased Pain/ Swelling, Increased Redness and Foul Smelling Discharge Call your doctor if you observe: Fever of 101 or Higher Suture Line Care: Avoid Pulling/Pushing and Avoid Pinching/Bending Additional Dressing/Incision Instructions:: Leave operative bandaids on for 2 days. When you remove dressing, leave Steri-Strips on until your follow-up appointment, or until the Steri-Strips fall off on their own. Follow Up Care Please Follow Up With: Lidya Yusuf PA-C When: Call office to schedule an appointment to be seen in 7 days after surgery. Test Results: Test results from this visit will be discussed in further detail at your follow-up appointment, if applicable. Discharge Plan Admission Admit Date/Time: 10/28/21 19:17 Attending Provider: Gina Carreon Primary Care Provider: Germaine Gallo NP Consulting Providers: Jose Martin Landeros Discharge Orders/Prescriptions Prescriptions: New oxycodone-acetaminophen [Percocet] 5-325 mg tablet 1 tab PO Q4H PRN (Reason: pain) 5 Days Qty: 20 RF: 0 No Action insulin aspart U-100 [Novolog Flexpen U-100 Insulin] 100 unit/mL (3 mL) insulin pen 20 unit SC TID RF: 0 gabapentin 600 MG tablet 600 mg PO DAILY RF: 0 atorvastatin 40 MG tablet 40 mg PO QHS RF: 0 clopidogrel 75 MG tablet 75 mg PO DAILY RF: 0 aspirin 81 MG tablet,chewable 325 mg PO DAILY@0800 RF: 0 lisinopril 5 MG tablet 10 mg PO DAILY RF: 0 insulin glargine 100 UNIT/ML insulin pen 50 unit SQ BID RF: 0 oxycodone-acetaminophen 1 TABLET tablet 1 tab PO Q8H PRN PRN (Reason: Pain) RF: 0 magnesium oxide 400 mg magnesium Tablet 400 mg PO BID PRN (Reason: supplement) RF: 0 carvedilol [Coreg] 6.25 mg Tablet 6.25 mg PO BID RF: 0 pantoprazole [Protonix] 40 mg Tablet,Delayed Release (Dr/Ec) 40 mg PO DAILY RF: 0 fexofenadine [Enedelia] 180 mg Tablet 180 mg PO DAILY RF: 0 lidocaine [Lidoderm] 5 % Adhesive Patch,Medicated 1 patch TOPICAL DAILY PRN (Reason: Back Pain) RF: 0 Trulance 3 mg Tablet 3 mg PO DAILY PRN (Reason: gastroparesis) RF: 0 Referrals / Follow Up: Germaine Gallo NP, [employer] HE[employer] MANAGER-C [Primary Care Provider] - Lidya Yusuf PA-C [PHYSICIAN WIRELESS ARCHITECT] -
[2021-11-02 11:13] VITALS: BP 145/78; PULSE 74; RESP 16; TEMP 36.3; O2SAT 98
--- NOTE | 2021-11-02 11:13 | DS.PCM_ITS ---
Providers Date of Admission: 10/28/21 Date of Discharge: 11/02/21 Primary Care Physician: SHARMAINE Quinn Consultations 10/28/21 21:07 Consult: Gastroenterology Routine Consulting Provider: [facility] Reason for Consult: Jaundice with elevated bilirubin EMERGENT Consult: No Notified: Yes Date Notified: 10/28/21 Time Notified: 19:25 Method of Notification: Verbal 10/29/21 13:23 Consult: General Surgery Routine Consulting Provider: Jose Martin Landeros Reason for Consult: mirzzi Syndrome EMERGENT Consult: No Notified: Yes Date Notified: 10/29/21 Time Notified: 13:24 Method of Notification: Verbal Reason For Visit: JAUNDICE Diagnosis 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 Code(s): K83.1 - Obstruction of bile duct (2) MEHRAN (acute kidney injury): Status: Resolved Code(s): N17.9 - Acute kidney failure, unspecified (3) Biliary stricture: Status: Acute Code(s): K83.1 - Obstruction of bile duct Medications at Discharge Home Medications gabapentin 600 mg PO DAILY 05/31/14 aspirin 325 mg PO DAILY@0800 02/25/17 atorvastatin 40 mg PO QHS 02/25/17 clopidogrel 75 mg PO DAILY 02/25/17 insulin glargine 50 unit SQ BID 02/25/17 lisinopril 10 mg PO DAILY 02/25/17 oxycodone-acetaminophen 1 tab PO Q8H PRN PRN 02/25/17 insulin aspart U-100 100 unit/mL (3 mL) subcutaneous pen 20 unit SC TID ml 11/29/19 Trulance 3 mg PO DAILY PRN 10/28/21 carvedilol [Coreg] 6.25 mg PO BID 10/28/21 fexofenadine 180 mg PO DAILY 10/28/21 lidocaine [Lidoderm] 1 patch TOPICAL DAILY PRN 10/28/21 magnesium oxide 400 mg PO BID PRN 10/28/21 pantoprazole [Protonix] 40 mg PO DAILY 10/28/21 oxycodone-acetaminophen [Percocet] 1 tab PO Q4H PRN 5 Days #20 tab 11/02/21 Hospital Course Operations cholecystecomy and ERCP (With biliary stent placement) Procedures - (MRCP) Summary of Care Provided Minutes Spent on Discharge: 41 Hospital Course: Mr. Nguyen is a 66-year-old white male who presented to the emergency department at [facility] on 10/28/2021 with right upper quadrant abdominal pain and epigastric abdominal pain. He initially presented to his primary care office where his PCP felt that he appeared jaundiced and requested that he present to the hospital for further evaluation. He had presented to the emergency department earlier this month on the with similar complaints and was discharged home after CT of his abdomen was negative and his labs were grossly normal. At the time evaluation this admission his bilirubin had elevated to greater than cell then and his LFTs were elevated. An ultrasound of his right upper quadrant was ordered from the emergency department and showed a gallbladder with layering stones and a nondilated common bile duct. Given his LFT elevation the case was discussed with gastroenterology and an MRCP was requested. His MRCP showed common bile duct narrowing secondary to underlying cholecystitis-Mirizzi syndrome. Given these findings a surgical consultation was placed and he was taken to the OR for laparoscopic cholecystectomy with plans for interoperative cholangiogram on 09/29/2021 however the intraoperative cholangiogram could not be performed secondary to anatomically short cystic duct. Postoperative REBEKAH drain was placed in the right upper quadrant. His gallbladder was successfully removed but unfortunately his LFTs remain elevated, his REBEKAH output was significant and therefore the case was further discussed with GI and he was taken for an ERCP for further exploration as there was concern that he might have stenosis in his biliary tree. An ERCP was performed on 11/01/2021 at which time a single moderate biliary stricture was found in the lower third of the main bile duct with dilatation of the entire main bile duct. A biliary sphincterotomy was performed at that time and the biliary tree was swept and sludge was found. 1 stent was placed into the common bile duct and the patient was to return to the floor and started on a regular diet. The morning following his ERCP his LFTs trended down except for his alk phos which was expected to be elevated status post ERCP. His total bilirubin trended down significantly as well and was 2.7 on discharge. The patient tolerated the diet well. During his hospitalization his insulins were adjusted given his intermittent n.p.o. status. We did discuss prior to discharge him being on 30 units twice a day of a basal insulin with him slowly up titrating his basal insulin based on his blood sugars as his p.o. intake is expected to be lower initially and improve with time. He voiced understanding. He also indicated he was in the process of trying to follow-up with a new laser machine operator. I did encourage this and the patient stated he would make an appointment once he found with whom he wanted to follow-up. He was discharged in stable condition on 11/02/2021 with a small course of oral pain medication. His REBEKAH drain was removed prior to discharge. He is to follow-up with Dr. Landeros's PA in 1 week, Dr. Toth from gastroenterology in 2 weeks, and his primary care physician within 1 week. Discharge diagnoses: Acute calculus cholecystitis with Mirizzi syndrome Biliary stricture status post stent MEHRAN-resolved DM-2 Gastroparesis Diabetic neuropathy CAD Hypertension Hyperlipidemia GERD Obesity Physical Exam Narrative Patient states he is feeling much better. Abdomen is elevator tender from postoperative changes but clinically much improved. P.o. intake has been good but not baseline. Const alert, oriented x3 and no apparent distress Constitutional Narrative: Obese upper middle-aged white male sitting up in bed, watching television, appears comfortable, nursing at the bedside General Appearance: cooperative Exam Limitations: no limitations Nutritional Appearance: obese HEENT normocephalic, head/scalp atraumatic and moist oral mucous membranes HEENT Narrative: Mildly hard of hearing, Mallampati 3, dentition is fair, no thrush Eyes PERRL, EOMs intact bilaterally and conjunctivae normal Eyes Narrative: No icterus Neck no lymphadenopathy, supple and no JVD Neck Narrative: Neck is short and thick, trachea is midline, no thyroid enlargement Resp normal respiratory effort, no retractions, no use of accessory muscles and clear to auscultation bilaterally Auscultation: Negative for crackles, rales, rhonchi or wheezes Cardio regular rate, regular rhythm, S1 normal heart sound, S2 normal heart sound, no murmurs, no rub, no gallops, no clicks and no JVD GI soft to palpation GI Narrative: Dressings in place, REBEKAH drain with serosanguineous drainage, mild diffuse tenderness, incision sites clean and dry Palpation: tender Extremity no clubbing, cyanosis or edema Extremity Narrative: Pedal pulses are 2+ Skin no rashes or lesions noted, skin turgor normal and no jaundice Neuro oriented x3, CN's II-XII intact bilaterally, moves all extremities, no focal motor deficits and no sensory deficits noted Sensorium / Orientation: awake and alert Speech: speech normal Psych affect normal Psych Narrative: Very pleasant and appropriately interactive Appearance: appropriate Medical Records Data Medical Nutrition Assessment Dietitian: Malnutrition Criteria Met Start: 10/29/21 11:44 Freq: Status: Active Protocol: Document 10/29/21 11:44 AG (Rec: 10/29/21 11:45 AG [id number]) Nutrition Malnutrition Evidence of Malnutrition Exists Yes Malnutrition (severe): Acute Illness/Injury Evidenced By Suboptimal Energy Intake ( Severe),Weight Loss (Severe) Clinical Problem Acute Disease or Injury Related Malnutrition Etiology severe, acute malnutrition r/t GI dysfunction Signs/Symptoms as evidenced by unintentional wt loss 14.6#/5.5% wt loss x 1 week, estimated PO intake meeting <50% of estimated energy needs x 5 days Status Active Problem Recommendation Dietitian Recommendations/Changes recommend CHO controlled, cardiac diet as tolerated; will monitor need for ONS as PO diet advanced. Weight / BMI Weight Weight: 113 kg Body Mass Index (BMI) 30.9 ABG / Lab / Microbiology Data Result Diagrams: 11/02/21 05:58 11/02/21 05:58 Laboratory: Laboratory Results - last 24 hr 11/01/21 16:11: POC Glucose 127 H 11/01/21 18:49: POC Glucose 132 H 11/01/21 22:40: POC Glucose 212 H 11/02/21 05:58: WBC 6.7, RBC 4.54 L, Hgb 14.1, Hct 42.2, MCV 93.0, MCH 31.1, MCHC 33.4, RDW Std Deviation 45.0 H, RDW Coeff of Destiny 13.1, Plt Count 176, MPV 10.5, Immature Gran % (Auto) 1.200 H, Neut % (Auto) 87.6 H, Lymph % (Auto) 7.9 L , [place] % (Auto) 3.3, Eos % (Auto) 0.0, Baso % (Auto) 0.0, Absolute Neuts (auto) 5.9, Absolute Lymphs (auto) 0.53 L, Nucleated RBC % 0, Differential Comment SCANNED, Reactive Lymphocytes RARE 11/02/21 05:58: Sodium 133 L, Potassium 4.3, Chloride 103, Carbon Dioxide 23.0, Anion Gap 7, BUN 13, Creatinine 1.00, Estim Creat Clear Calc 88.02, Est GFR (MDRD) Af Amer 97, Est GFR (MDRD) Non-Af 80, BUN/Creatinine Ratio 13.1, Glucose 226 H, Calcium 8.4 L, Total Bilirubin 2.70 H, AST 67 H, ALT 98 H, Alkaline Phosphatase 532 H, Total Protein 5.8 L, Albumin 2.3 L, Globulin 3.5, Albumin/Globulin Ratio 0.7 L 11/02/21 06:58: POC Glucose 199 H Microbiology: Microbiology 10/30/21 09:51 Incision/Surgical Site Gram Stain - Final 10/30/21 09:51 Incision/Surgical Site Wound Culture - Final No growth aerobically. 10/30/21 09:51 Incision/Surgical Site Anaerobic Culture - Preliminary Checking for anaerobes, further studies to follow. 10/29/21 Unknown Urine, Midstream Urine Culture - Final Mixed Gram Positive Organisms Radiography Diagnostic Testing: Radiology Impression ERCP X-Ray 11/01/21 17:45 IMPRESSION: No choledocholithiasis or significant biliary distention. Electronically Signed: Lory Bernal MD at 22:13 EDT , D/C Instructions Discharge Diet: Light diet - advance as tolerated May shower in (days): 1 (with the bandage in place.) Additional Activity Instructions: Pain medication may cause nausea. You should typically eat light foods as you take your pain medications. Pain medication may also cause constipation. If this is a problem for you, please discuss with your doctor. Call your doctor if your incision/area has: Continuous Slow Oozing, Sudden Increased Bleeding, Increased Pain/ Swelling, Increased Redness and Foul Smelling Discharge Call your doctor if you observe: Fever of 101 or Higher Suture Line Care: Avoid Pulling/Pushing and Avoid Pinching/Bending Additional Dressing/Incision Instructions: Leave operative bandaids on for 2 days. When you remove dressing, leave Steri-Strips on until your follow-up appointment, or until the Steri-Strips fall off on their own. Please Follow Up With: Paramjit,Lidya PA, PA-C When: Call office to schedule an appointment to be seen in 7 days after surgery. Meaningful Use Info Meaningful Use Diagnoses (Choose all that apply): None applicable Discharge Plan Admission Admit Date/Time: 10/28/21 19:17 Primary Reason for Your Visit: abdominal pain Attending Provider: Gina Carreon Primary Care Provider: Germaine Gallo NP Consulting Providers: Jose Martin Landeros Instructions Additional Instructions / Restrictions: 1. Reduce basal insulin dose from 50 units twice a day to 30 units twice a day and slowly increase your dose while monitoring your sugars back to your home dose of 50 units twice a day -Please be strict about monitoring your blood sugars especially fasting blood sugars -If blood sugar is greater than 180 in the morning would increase basal insulin by 10 units 2. Please call tomorrow to make below appointments for follow-up visits Discharge Orders/Prescriptions Prescriptions: New oxycodone-acetaminophen [Percocet] 5-325 mg tablet 1 tab PO Q4H PRN (Reason: pain) 5 Days Qty: 20 RF: 0 Continued insulin aspart U-100 [Novolog Flexpen U-100 Insulin] 100 unit/mL (3 mL) insulin pen 20 unit SC TID RF: 0 gabapentin 600 MG tablet 600 mg PO DAILY RF: 0 atorvastatin 40 MG tablet 40 mg PO QHS RF: 0 clopidogrel 75 MG tablet 75 mg PO DAILY RF: 0 aspirin 81 MG tablet,chewable 325 mg PO DAILY@0800 RF: 0 lisinopril 5 MG tablet 10 mg PO DAILY RF: 0 insulin glargine 100 UNIT/ML insulin pen 50 unit SQ BID RF: 0 oxycodone-acetaminophen 1 TABLET tablet 1 tab PO Q8H PRN PRN (Reason: Pain) RF: 0 magnesium oxide 400 mg magnesium Tablet 400 mg PO BID PRN (Reason: supplement) RF: 0 carvedilol [Coreg] 6.25 mg Tablet 6.25 mg PO BID RF: 0 pantoprazole [Protonix] 40 mg Tablet,Delayed Release (Dr/Ec) 40 mg PO DAILY RF: 0 fexofenadine 180 mg Tablet 180 mg PO DAILY RF: 0 lidocaine [Lidoderm] 5 % Adhesive Patch,Medicated 1 patch TOPICAL DAILY PRN (Reason: Back Pain) RF: 0 Trulance 3 mg Tablet 3 mg PO DAILY PRN (Reason: gastroparesis) RF: 0 Referrals / Follow Up: Friend,Osmin, DO [STAFF PHYSICIAN] - Within 2 Weeks Germaine Gallo PERIANESTHESIA NURSE, PERIANESTHESIA NURSE-C [Primary Care Provider] - In 1 Week Lidya Yusuf, PA-C [PHYSICIAN DRY HOUSE TENDER] - In 1 Week Disposition Disposition (needs filled in before D/C Order can be placed): Home, Self Care Charges/Coding Visit Charges Inpatient E&M: 05133 Disch Hosp
[2021-11-02 11:35] LABS: Bedside Glucose 207 mg/dL (74-106)
--- NOTE | 2021-11-02 12:30 | CASEMGMT ---
LIBAN CM in to pt room, at bedside. Pt states he feels much better than prior and denies any homegoing needs.
== END 2021-11-02 12:58 | disposition home or self-care (01) | DRG 418 ==
LOC: ED 19:06 → MS3 19:55
PROVIDERS: Anesthesiology; Internal Medicine; Internal Medicine Gastroenterology; Nurse Practitioner; Surgery; Admitting Provider Family Medicine; Emergency Provider Emergency Medicine; PCP Registered Nurse; Visit Provider Internal Medicine
PROC: 0FT44ZZ Resection of Gallbladder, Percutaneous Endoscopic Approach (ICD-10-PCS; CPT 47610; principal; 2021-10-30 07:40)
PROC: 0FC98ZZ Extirpation of Matter from Common Bile Duct, Via Natural or Artificial Opening Endoscopic (ICD-10-PCS; CPT 43260; principal; 2021-11-01 14:35)
DX: K80.00 Calculus of gallbladder with acute cholecystitis without obstruction (principal); N17.9 Acute kidney failure, unspecified; R17 Unspecified jaundice; K83.8 Other specified diseases of biliary tract; E11.43 Type 2 diabetes mellitus with diabetic autonomic (poly)neuropathy; Z79.4 Long term (current) use of insulin; K31.84 Gastroparesis; I25.10 Atherosclerotic heart disease of native coronary artery without angina pectoris; M79.7 Fibromyalgia; I10 Essential (primary) hypertension; E78.5 Hyperlipidemia, unspecified; K21.9 Gastro-esophageal reflux disease without esophagitis; G89.29 Other chronic pain; Z79.82 Long term (current) use of aspirin; Z79.02 Long term (current) use of antithrombotics/antiplatelets; R80.9 Proteinuria, unspecified; Z79.01 Long term (current) use of anticoagulants; E66.9 Obesity, unspecified; R10.13 Epigastric pain; Z68.31 Body mass index [BMI] 31.0-31.9, adult; Z95.1 Presence of aortocoronary bypass graft; Z95.5 Presence of coronary angioplasty implant and graft; Z86.73 Personal history of transient ischemic attack (TIA), and cerebral infarction without residual deficits
CPT/HCPCS: 36415; 74177; 74181; 74328; 76000; 76705; 80048; 80053; 80074; 80076; 81001; 82140; 82150; 82248; 82728; 82962; 82977; 83036; 83605; 83690; 83735; 85025; 85027; 85610; 86308; 86803; 86804; 87070; 87075; 87077; 87086; 87205; 88304; 93005; 96361; 96374; 96375; 96376; 97802; 99283; 99284; J7030; J7050; J7120; Q9967; A4216; J2405

== ENCOUNTER 2022-01-25 11:24 | Inpatient (IN) | payer OTHER, MEDICARE, SELFPAY ==
[2022-01-25] VITALS (10 sets, daily range): BP systolic 130–199; BP diastolic 68–104; PULSE 64–123; RESP 16–20; TEMP 36.4–36.8; O2SAT 95–100; BMI 31.2; BMI 35.3
--- NOTE | 2022-01-25 11:43 | EKG12_ITS ---
Test Reason : chest pressure Blood Pressure : / mmHG Vent. Rate : 069 BPM Atrial Rate : 069 BPM P-R Int : 238 ms QRS Dur : 132 ms QT Int : 448 ms P-R-T Axes : 044 -56 097 degrees QTc Int : 480 ms Sinus rhythm with 1st degree A-V block Right bundle branch block Left anterior fascicular block Bifascicular block Left ventricular hypertrophy with repolarization abnormality ( R in aVL , Romhilt-Casper ) Abnormal ECG Confirmed by KEYLA LECHUGA, HUMZA ([id number]), medical transcription editor VANDANA JOLLY ([id number]) on 01/28/2022 7:57:04 AM Referred By: Micha Confirmed By:HUMZA RAMIRES MD
--- NOTE | 2022-01-25 11:43 | NURSING ---
PAGED DR RAMIRES
--- NOTE | 2022-01-25 11:58 | ED.VIS.CHEST ---
HPI History of Present Illness Chief Complaint: Chest Pain Detail of Chief Complaint: Midsternal chest pressure with dyspnea going up a flight of steps Onset/Context/Timing Onset: Weeks (First episode approximately 1 week ago, 4-5 since) Activity at onset: sudden and activity on onset (Going up a flight of steps) Timing: Intermittent and Lasts (Varies, duration less than 15 minutes) Quality: Positive for Pressure Location: Substernal Current Severity: Gone Maximum Severity: Moderate Worsened By: Exertion Relieved By: Remaining Still and NTG (With first episode patient took nitro because the pain did not go away with rest) Associated Symptoms: Positive for Dyspnea; Negative for Nausea, Vomiting, Diaphoresis, Cough, Fever, Lightheadedness, Acid Reflux or Palpitations Narrative Narrative: Patient is a 66-year-old male with history coronary disease status post three-vessel bypass surgery 1995 and has had 2 stents placed since. Patient has multiple risk factors. Patient had a CVA approximately 5 to 6 years ago. Patient was seen by his doctor. He had blood work this morning and troponin was 192. Patient's first episode was approximate 1 week ago. Had 4-5 episodes where he has chest pressure with dyspnea and radiation to the right shoulder. He took nitro with the first episode. Prior Similar Symptoms: Yes and With Prior SC Recent Illness/Hospitalization: No CVD Risk Factors: Positive for Hypertension, Diabetes and Hypercholesterolemia PE Risk Factors: Negative for Recent Travel/Surgery, Recent Immobilization, Prior DVT or PE, Cancer or OCP + Smoking + >/=35 TAD Risk Factors: Positive for Hypertension and Family History; Negative for Marfan's Syndrome [facility] Medical History Abdominal aneurysm Allergies Arthritis Bile duct obstruction Biliary stricture Current use of insulin Diabetes Difficulty balancing Fibromyalgia Gastric paresis GERD (gastroesophageal reflux disease) H/O emotional problems Heart disease History of back problems History of stress test HTN (hypertension) Irritable bowel disease Kidney stones Mirizzi's syndrome Neuropathy Rheumatoid arthritis Stroke Vascular disease Home Medications gabapentin 600 mg tablet 600 mg PO DAILY pain 05/31/14 [History Last Taken 02/25/17] aspirin 81 mg chewable tablet 325 mg PO DAILY@0800 blood thinner 02/25/17 [History Last Taken 10/25/21] atorvastatin 40 mg tablet 40 mg PO QHS cholestrol 02/25/17 [History Last Taken 10/25/21] clopidogrel 75 mg tablet 75 mg PO DAILY blood thinner 02/25/17 [History Last Taken 10/25/21] insulin glargine 100 unit/mL (3 mL) subcutaneous pen 50 unit SQ BID DM 02/25/17 [History Last Taken 02/24/17] lisinopril 5 mg tablet 10 mg PO DAILY BP 02/25/17 [History Last Taken 02/25/17] oxycodone-acetaminophen 5 mg-325 mg tablet 1 tab PO Q8H PRN PRN Pain 02/25/17 [History Last Taken 02/24/17] insulin aspart U-100 100 unit/mL (3 mL) subcutaneous pen (Novolog Flexpen U-100 Insulin aspart) 20 unit subcut TID DM 11/29/19 [History Last Taken Unknown] carvedilol 6.25 mg tablet (Coreg) 6.25 mg PO BID heart 10/28/21 [History Last Taken Unknown] fexofenadine 180 mg tablet 180 mg PO DAILY allergies 10/28/21 [History Last Taken Unknown] lidocaine 5 % topical patch (Lidoderm) 1 patch topical DAILY PRN Back Pain 10/28/21 [History Last Taken Unknown] magnesium oxide 400 mg PO BID PRN supplement 10/28/21 [History Last Taken Unknown] pantoprazole 40 mg tablet,delayed release (Protonix) 40 mg PO DAILY GERD 10/28/21 [History Last Taken Unknown] plecanatide 3 mg tablet (Trulance) 3 mg PO DAILY PRN gastroparesis 10/28/21 [History Last Taken Unknown] oxycodone-acetaminophen 5 mg-325 mg tablet (Percocet) 1 tab PO Q4H PRN pain 5 days #20 tabs 11/02/21 [Rx Last Taken Unknown] Allergy/AdvReac Type Severity Reaction Status Date / Time aripiprazole [From Abilify] Allergy Mild FELT POORLY Verified 01/25/22 11:27 atorvastatin [From Lipitor] Allergy muscle Verified 01/25/22 11:27 aches nabumetone [From Relafen] Allergy GI Verified 01/25/22 11:27 Family History Other Heart disease Surgical History H/O knee surgery Stented coronary artery Social History (Updated 01/25/22 @ 12:[address] Koko Muse MD) household members: none Smoking Status: Never smoker alcohol intake: never substance use type: does not use ROS ROS ED Constitutional Constitutional ED: Denies chills, fever(s), subjective, sweats or weight loss Eyes Eyes: Denies blurry vision, change in vision or diplopia ENT ENT ED: Denies ear pain, rhinorrhea or sore throat Cardiovascular Cardiovascular: Reports as per HPI; Denies orthopnea or paroxysmal nocturnal dyspnea Respiratory/Chest Respiratory/Chest: Reports dyspnea and dyspnea on exertion; Denies cough, orthopnea or paroxysmal nocturnal dyspnea Gastrointestinal Gastrointestinal: Denies abdominal pain, diarrhea, melena, nausea or vomiting Genitourinary Genitourinary ED: Denies dysuria, hematuria or urinary frequency Musculoskeletal Musculoskeletal: Reports neck pain; Denies arthralgias, back pain or myalgias Integumentary Denies abscess or rash Neurologic Neurologic: Denies headache(s), paresthesias or weakness Endocrine Endocrinology: Denies cold intolerance, heat intolerance, polydipsia or polyuria Hematologic/Lymphatic Hematologic/Lymphatic: Denies easy bleeding or easy bruising EXAM Physical Exam Const Vital Signs: 01/25/22 11:26 01/25/22 11:39 01/25/22 11:25 Temperature 97.5 F L Temperature Source Temporal Pulse Rate 74 71 Respiratory Rate 18 18 Respiratory Effort Normal Non-Labored Blood Pressure 154/75 H 130/76 H Blood Pressure Mean 101 94 Pulse Ox 99 98 Oxygen Delivery Method Room Air Room Air 01/25/22 11:43 Temperature Temperature Source Pulse Rate Respiratory Rate Respiratory Effort Blood Pressure Blood Pressure Mean Pulse Ox Oxygen Delivery Method Room Air Positive well nourished and obese; Negative for cachectic or contractures General Appearance ED: NAD; Negative for cachectic or contractures Nutritional Appearance: obese; Negative for cachectic HEENT Reports TM's clear and moist mucous membranes HEENT Narrative: Nares patent. Uvula midline. No erythema or exudate. Neck is supple. normocephalic and atraumatic Tympanic Membrane ED: Yes TM's clear Eyes PERRL and EOMs intact bilaterally General Eye ED: Negative for pale conjunctiva or scleral icterus Neck no lymphadenopathy, supple and no JVD General: Negative for tenderness Chest Wall inspection of chest normal and palpation of chest normal Resp normal respiratory effort and clear to auscultation bilaterally Cardio regular rate, regular rhythm, S1 normal heart sound, S2 normal heart sound and no murmurs GI normal to inspection, nondistended, normoactive bowel sounds, soft to palpation, non-tender and non-distended; Negative for hepatosplenomegaly Back/Spine no CVA tenderness Extremity normal to inspection General Extremety ED: Yes edema; Negative for pulses abnormal or tenderness General Extremity: edema; Negative for pulses abnormal Neuro oriented x3, CN's II-XII intact bilaterally, no sensory deficits noted and gait normal Sensorium / Orientation: awake Motor Exam: strength 5/5 throughout Psych mental status grossly normal Skin no rashes or lesions noted and no wounds Heart Score History: Highly Suspicious ECG: Nonspecific Repolarization Age: >/= 65 years Risk Factors: >/= 3 Risk Factors or History of CAD Troponin: >1 - <3 Normal Limit Score: 8 MDM MDM MDM Narrative Medical decision making narrative: Case was discussed with Dr. Herman. Dr. Herman requested cath report. Cath report from outside facility was obtained. Dr. Esparza was contacted regarding anticoagulation with Lovenox versus heparin. Patient was placed on heparin. Lab Data Attestation: I reviewed the patient's lab results. Lab results narrative: CBC is unremarkable. Platelet count is 120. PT/INR and PTT are normal. Troponin is 196. This is consistent with patient having event several days ago. Creatinine and renal function is normal. Labs: Laboratory Results - last 24 hr 01/25/22 01/25/22 01/25/22 11:51 11:51 11:51 WBC 4.4 RBC 4.96 Hgb 15.7 Hct 46.2 MCV 93.1 MCH 31.7 MCHC 34.0 RDW Std Deviation 43.0 RDW Coeff of Destiny 12.6 Plt Count 120 L MPV 10.9 Immature Gran % (Auto) 0.200 Neut % (Auto) 65.1 Lymph % (Auto) 23.0 [place] % (Auto) 7.3 Eos % (Auto) 3.9 Baso % (Auto) 0.5 Absolute Neuts (auto) 2.9 Absolute Lymphs (auto) 1.01 Nucleated RBC % 0 PT 13.9 INR 1.1 APTT 30.0 Sodium 138 Potassium 4.4 Chloride 105 Carbon Dioxide 29.0 Anion Gap 4 L BUN 15 Creatinine 0.98 Estim Creat Clear Calc 89.82 Est GFR (MDRD) Af Amer 98 Est GFR (MDRD) Non-Af 81 BUN/Creatinine Ratio 15.2 Glucose 156 H Calcium 9.1 Troponin I High Sens 196 H* Radiography Chest X-Ray - ED: 1 View and Read by ED Physician (Interpreted by me at 1240. Sternotomy wires noted. Cardiac silhouette and size unremarkable. Mediastinum slightly widened; however, he is status post bypass surgery. Lung parenchyma reveals no acute process. [place] structures are unremarkable.) Diagnostic Testing: Clinical Impression(s) from Imaging Studies Chest X-Ray 01/25/22 12:20 IMPRESSION: No acute abnormality is seen. Electronically Signed: Robbin Alanis MD at 12:41 EDT , EKG Initial EKG: Attestation: I personally reviewed and interpreted this EKG as follows: Interpretation: Sinus Rhythm (Ventricular rate is 69. Patient has a bifascicular block with a right bundle branch as well as left anterior fascicular block. There is also first-degree block. NV interval is 238 ms. QS duration 132 ms. QT duration 448 ms.) Critical Care Time Critical Care Time: Yes Critical care time (excluding procedures): 30-74 minutes (32 minutes), Including time spent: (History, physical, documentation, obtaining records from outside facility and reading cath report. Interpretation laboratory results initiation of therapy), Discussing w/Patient &/or Family/Printing Machine Operator, Discussing w/Consultants (Dr. Herman front sight attacher on-call) and Arranging Admission or Transfer Discharge Plan Dx/Rx/DC Orders Clinical Impression: Non-ST elevated myocardial infarction, CAD (coronary artery disease), History of diabetes mellitus, type II, History of chronic hypertension, History of stroke Disposition Disposition: Acute Care [facility]
[2022-01-25 12:01] LABS: Absolute Lymphocyte Count 1.01 X10^3/uL (0.83-4.51); Absolute Neutrophil Count 2.9 X10^3/uL (2.0-7.7); Basophil# 0.02 X10^3/uL; Basophil% 0.5 % (0-1); Eosinophil# 0.17 X10^3/uL; Eosinophils% 3.9 % (0-5); Hematocrit 46.2 % (40-54); Hemoglobin 15.7 g/dL (13.0-16.5); Lymphocyte # 1.01 X10^3/ul (0.83-4.51); Mean Corpuscular Hgb 31.7 pg (27.0-32.0); Mean Corpuscular Volume 93.1 fL (80-94); Mean Platelet Vol. 10.9 fl (6.2-12.0); Monocyte# 0.32 X10^3/uL; Monocyte% 7.3 % (0-10); NRBC Flagged by Analyzer 0 % (0-5); Neutrophil # 2.87 X10^3/uL (2.7-7.7); Neutrophil % 65.1 % (47-70); Platelet Count 120 K/mm3 (150-450); RBC Distribution Width CV 12.6 % (11.6-14.6); Red Blood Count 4.96 M/mm3 (4.6-6.2); White Blood Count 4.4 K/mm3 (4.4-11.0)
[2022-01-25 12:06] LABS: International Normalized Ratio 1.1; Prothrombin Time (Protime)PT. 13.9 SECONDS (11.7-14.9)
[2022-01-25] MEDS: Heparin Injection (Vial) 5,000 UNIT/ML VIAL 10500 UNIT IV (12:17)
--- NOTE | 2022-01-25 12:20 | RAD_ITS ---
STUDY: X-RAY CHEST REASON FOR EXAM: Male, 66 years old. Chest pain TECHNIQUE: Single AP portable view of the chest. COMPARISON: Comparison is made with prior study dated 02/25/2017. FINDINGS: EKG electrodes are seen. The lungs are clear and expanded. There is no demonstrated pleural abnormality. Sternal cerclage wires and vascular clips are present from a prior sternotomy and coronary artery bypass graft procedure (CABG). Normal mediastinum and zeferino. Normal visualized pulmonary arteries. There is atherosclerotic calcification of the aortic arch with tortuosity. There are diffuse degenerative changes of the visualized thoracic spine. Normal visualized ribs, clavicles, and shoulders. There is no demonstrated abnormality of the visualized soft tissue structures of the upper abdomen. RAD/Chest 1 View (Portable) IMPRESSION: No acute abnormality is seen. Electronically Signed: Robbin Alanis MD at 12:41 EDT ,
[2022-01-25 12:27] LABS: Anion Gap 4 (5-15); BUN 15 mg/dL (7-18); BUN/Creat Ratio 15.2 RATIO (10-20); Calcium,Total 9.1 mg/dL (8.5-10.1); Chloride 105 mmol/L (98-107); Creatinine, Serum 0.98 mg/dL (0.70-1.30); EST Glomerular Filtration Rate 81 mL/min (>60); Est Glom Filt Rate - Afr Amer 98 mL/min (>60); Estimated Creatinine Clearance 89.82 ml/min; Glucose 156 mg/dL (74-106); Potassium 4.4 mmol/L (3.5-5.1); Sodium Level 138 mmol/L (136-145); Troponin-I HS (w/2H Reflex) 196 pg/mL (3.0-78.0)
[2022-01-25] MEDS: HEPARIN/D5w 25,000 UNITS 25,000 UNITS/250 ML IV.SOLN. 15 UNITS CONT INF (12:43)
--- NOTE | 2022-01-25 13:19 | HP.PCM.HOS_ITS ---
Documented by User: Sofy Riggs NP, CHIEF INFORMATION SECURITY OFFICER-C 01/25/22 13:46 HPI - General General Date of Admission: 01/25/22 Date of Service: 01/25/22 Chief Complaint: Chest pain. HPI Narrative TOMMY JOSE, is a 66 M who presents to the emergency room due to chest pain. Patient reports he had an episode approximately 2 weeks ago of chest pressure which was relieved with 1 nitro. He states he went to see his primary card iologist who set up an outpatient stress test which is scheduled for next . He follows with [facility] cardiology. Since following up with cardiology he reports chest pressure with exertion and associated shoulder blade tightness, dyspnea with exertion and easily fatigu es. He denies lightheadedness, dizziness, diaphoresis, nausea. Patient states his symptoms are typically relieved with rest. He denies other associated symptoms or complaints. 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 [facility] Medical History Abdominal aneurysm Allergies Arthritis Bile duct obstruction Biliary stricture Current use of insulin Diabetes Difficulty balancing Fibromyalgia Gastric paresis GERD (gastroesophageal reflux disease) H/O emotional problems Heart disease History of back problems History of stress test HTN (hypertension) Irritable bowel disease Kidney stones Mirizzi's syndrome Neuropathy Rheumatoid arthritis Stroke Vascular disease Home Medications gabapentin 600 mg tablet 600 mg PO DAILY pain 05/31/14 [History Last Taken 02/25/17] aspirin 81 mg chewable tablet 325 mg PO DAILY@0800 blood thinner 02/25/17 [History Last Taken 10/25/21] atorvastatin 40 mg tablet 40 mg PO QHS cholestrol 02/25/17 [History Last Taken 10/25/21] clopidogrel 75 mg tablet 75 mg PO DAILY blood thinner 02/25/17 [History Last Taken 10/25/21] insulin glargine 100 unit/mL (3 mL) subcutaneous pen 50 unit SQ BID DM 02/25/17 [History Last Taken 02/24/17] lisinopril 5 mg tablet 10 mg PO DAILY BP 02/25/17 [History Last Taken 02/25/17] oxycodone-acetaminophen 5 mg-325 mg tablet 1 tab PO Q8H PRN PRN Pain 02/25/17 [History Last Taken 02/24/17] insulin aspart U-100 100 unit/mL (3 mL) subcutaneous pen (Novolog Flexpen U-100 Insulin aspart) 20 unit subcut TID DM 11/29/19 [History Last Taken Unknown] carvedilol 6.25 mg tablet (Coreg) 6.25 mg PO BID heart 10/28/21 [History Last Taken Unknown] fexofenadine 180 mg tablet 180 mg PO DAILY allergies 10/28/21 [History Last Taken Unknown] lidocaine 5 % topical patch (Lidoderm) 1 patch topical DAILY PRN Back Pain 10/28/21 [History Last Taken Unknown] magnesium oxide 400 mg PO BID PRN supplement 10/28/21 [History Last Taken Unknown] pantoprazole 40 mg tablet,delayed release (Protonix) 40 mg PO DAILY GERD 10/28/21 [History Last Taken Unknown] plecanatide 3 mg tablet (Trulance) 3 mg PO DAILY PRN gastroparesis 10/28/21 [History Last Taken Unknown] oxycodone-acetaminophen 5 mg-325 mg tablet (Percocet) 1 tab PO Q4H PRN pain 5 days #20 tabs 11/02/21 [Rx Last Taken Unknown] Allergy/AdvReac Type Severity Reaction Status Date / Time aripiprazole [From Abilify] Allergy Mild FELT POORLY Verified 01/25/22 11:27 atorvastatin [From Lipitor] Allergy muscle Verified 01/25/22 11:27 aches nabumetone [From Relafen] Allergy GI Verified 01/25/22 11:27 Family History Mother Heart disease Father Heart disease Surgical History H/O knee surgery History of laparoscopic cholecystectomy Hx of tonsillectomy Stented coronary artery Vertebral artery stenosis Social History household members: spouse Smoking Status: Never smoker alcohol intake: never substance use type: does not use ROS Constitutional Constitutional: Reports other Details: easily fatigued ; Denies change in weight, chills, fever(s) or weakness Cardiovascular Cardiovascular: Reports chest pain; Denies edema, lightheadedness, palpitations or syncope Respiratory/Chest Respiratory/Chest: Reports shortness of breath with exertion; Denies cough, p roductive cough or wheezing Gastrointestinal Gastrointestinal: Denies abdominal pain, constipation, diarrhea, nausea or vomiting Genitourinary Genitourinary: Denies burning urination, difficulty urinating, dysuria, hematuria, urinary frequency, urinary incontinence or urinary urgency Musculoskeletal Musculoskeletal: Denies back pain, joint pain or muscle weakness Integumentary Integumentary: Denies erythema, lesions, rash or wounds Neurologic Neurologic: Denies abnormal speech, confusion, dizziness, focal weakness, numbness, paresthesias, seizure-like activity or syncope Psychiatric Psychiatric: Denies anxiety or depression Hematologic/Lymphatic Hematologic/Lymphatic: Denies anemia, easy bleeding or easy bruising Allergic/Immunologic Allergic/Immunologic: Denies hives or asthma Vital Signs Vital Signs Vital Signs: 01/25/22 11:26 01/25/22 11:39 01/25/22 11:25 Temperature 97.5 F L Temperature Source Temporal Pulse Rate 74 71 Respiratory Rate 18 18 Respiratory Effort Normal Non-Labored Blood Pressure 154/75 H 130/76 H Blood Pressure Mean 101 94 Pulse Ox 99 98 Oxygen Delivery Method Room Air Room Air 01/25/22 11:43 Temperature Temperature Source Pulse Rate Respiratory Rate Respiratory Effort Blood Pressure Blood Pressure Mean Pulse Ox Oxygen Delivery Method Room Air Weight Weight: 250 lb Body Mass Index (BMI) 31.2 Physical Exam Const alert, oriented x3 and no apparent distress Orientation / Consciousness: awake, oriented to person, oriented to place and oriented to time HEENT normocephalic and moist oral mucous membranes Eyes PERRL, EOMs intact bilaterally and conjunctivae normal Neck no lymphadenopathy Resp normal respiratory effort and clear to auscultation bilaterally Cardio regular rate, regular rhythm and no murmurs Peripheral Pulses: pulses 2+ throughout GI normal to inspection, nondistended, normoactive bowel sounds, non-tender and non-distended Extremity normal to inspection Skin no rashes or lesions noted Lesions: no lesions Rashes: no rashes Trauma: no lacerations or abrasions Neuro CN's II-XII intact bilaterally, no focal motor deficits, no sensory deficits noted and deep tendon reflexes 2+ bilaterally Psych mental status grossly normal and affect normal Results Lab / Micro Data Result Diagrams: 01/25/22 13:55 01/25/22 11:51 Labs: Laboratory Results - last 24 hr 01/25/22 11:51: WBC 4.4, RBC 4.96, Hgb 15.7, Hct 46.2, MCV 93.1, MCH 31.7, MCHC 34.0, RDW Std Deviation 43.0, RDW Coeff of Destiny 12.6, Plt Count 120 L, MPV 10.9, Immature Gran % (Auto) 0.200, Neut % (Auto) 65.1, Lymph % (Auto) 23.0, Antelope % (Auto) 7.3, Eos % (Auto) 3.9, Baso % (Auto) 0.5, Absolute Neuts (auto) 2.9, Absolute Lymphs (auto) 1.01, Nucleated RBC % 0 01/25/22 11:51: Sodium 138, Potassium 4.4, Chloride 105, Carbon Dioxide 29.0, Anion Gap 4 L, BUN 15, Creatinine 0.98, Estim Creat Clear Calc 89.82, Est GFR (MDRD) Af Amer 98, Est GFR (MDRD) Non-Af 81, BUN/Creatinine Ratio 15.2, Glucose 156 H, Calcium 9.1, Troponin I High Sens 196 H* 01/25/22 11:51: PT 13.9, INR 1.1, APTT 30.0 Radiology Impression Chest X-Ray 01/25/22 12:20 IMPRESSION: No acute abnormality is seen. Electronically Signed: Robbin Alanis MD at 12:41 EDT , Assessment & Plan Assessment/Plan (1) Non-ST elevated myocardial infarction: PLAN: Plan 1. NSTEMI, unstable angina-trend enzymes. On heparin drip. Continue aspirin, statin, Plavix, beta noris. Consult cardiology. 2. CAD with history of CABG and stents-continue aspirin, statin, Plavix, carvedilol, lisinopril. Follows with [facility] [place] [facility]. 3. Type 2 diabetes mellitus with polyneuropathy and [id number] w ith sliding scale insulin. Continue home insulin regimen. Continue gabapentin. 4. Mirizzi syndrome- S/P lap jeramy. Following with GI. 5. Vertebral artery stenosis status post stenting 6. Hypertension-stable, continue current regimen. 7.Hyperlipidemia-continue statin. 8. Ascending aortic aneurysm-patient reports stable. Continue outpatient follow-up. 9. History of CVA- on aspirin, statin, Plavix. 10. GERD-continue PPI. DVT prophylaxis- heparin This patient was seen by SHARMAINE Kirkpatrick under the supervision of Dr. Castellanos. Time spent examining patient, reviewing data and subsequent management of care: 28 minutes Documented by User: Dr. Baldev Castellanos MD 01/25/22 15:56 HPI - General General Date of Admission: 01/25/22 [facility] Medical History Abdominal aneurysm Allergies Arthritis Bile duct obstruction Biliary stricture Current use of insulin Diabetes Difficulty balancing Fibromyalgia Gastric paresis GERD (gastroesophageal reflux disease) H/O emotional problems Heart disease History of back problems History of stress test HTN (hypertension) Irritable bowel disease Kidney stones Mirizzi's syndrome Neuropathy Rheumatoid arthritis Stroke Vascular disease Home Medications gabapentin 600 mg tablet 600 mg PO DAILY pain 05/31/14 [History Last Taken 02/25/17] aspirin 81 mg chewable tablet 325 mg PO DAILY@0800 blood thinner 02/25/17 [History Last Taken 10/25/21] atorvastatin 40 mg tablet 40 mg PO QHS cholestrol 02/25/17 [History Last Taken 10/25/21] clopidogrel 75 mg tablet 75 mg PO DAILY blood thinner 02/25/17 [History Last Darell en 10/25/21] insulin glargine 100 unit/mL (3 mL) subcutaneous pen 50 unit SQ BID DM 02/25/17 [History Last Taken 02/24/17] lisinopril 5 mg tablet 10 mg PO DAILY BP 02/25/17 [History Last Taken 02/25/17] oxycodone-acetaminophen 5 mg-325 mg tablet 1 tab PO Q8H PRN PRN Pain 02/25/17 [History Last Taken 02/24/17] insulin aspart U-100 100 unit/mL (3 mL) subcutaneous pen (Novolog Flexpen U-100 Insulin aspart) 20 unit subcut TID DM 11/29/19 [History Last Taken Unknown] carvedilol 6.25 mg tablet (Coreg) 6.25 mg PO BID heart 10/28/21 [History Last Taken Unknown] fexofenadine 180 mg tablet 180 mg PO DAILY allergies 10/28/21 [History Last Taken Unknown] lidocaine 5 % topical patch (Lidoderm) 1 patch topical DAILY PRN Back Pain 10/28/21 [History Last Taken Unknown] magnesium oxide 400 mg PO BID PRN supplement 10/28/21 [History Last Taken Unknown] pantoprazole 40 mg tablet,delayed release (Protonix) 40 mg PO DAILY GERD 10/28/21 [History Last Taken Unknown] plecanatide 3 mg tablet (Trulance) 3 mg PO DAILY PRN gastroparesis 10/28/21 [History Last Taken Unknown] oxycodone-acetaminophen 5 mg-325 mg tablet (Percocet) 1 tab PO Q4H PRN pain 5 days #20 tabs 11/02/21 [Rx Last Taken Unknown] Allergy/AdvReac Type Severity Reaction Status Date / Time aripiprazole [From Abilify] Allergy Mild FELT POORLY Verified 01/25/22 11:27 atorvastatin [From Lipitor] Allergy muscle Verified 01/25/22 11:27 aches nabumetone [From Relafen] Allergy GI Verified 01/25/22 11:27 Family History Mother Heart disease Father Heart disease Surgical History H/O knee surgery History of laparoscopic cholecystectomy Hx of tonsillectomy Stented coronary artery Vertebral artery stenosis Social History household members: spouse Smoking Status: Never smoker alcohol intake: never substance use type: does not use Results Lab / Micro Data Result Diagrams: 01/25/22 13:55 01/25/22 11:51 Assessment & Plan Assessment/Plan (1) Non-ST elevated myocardial infarction: Charges/Coding Addendum Addendum: Addendum: Dr. Castellanos I personally examined the patient and reviewed the chart. I agree with the above. 66-year-old male with a history of coronary artery disease status post CABG as well as multiple stents presents with chest pain. He had an episode of chest pain about 2 weeks ago which was relieved with nitro. He went to see his primary hot saw operator who had set up an outpatient stress test which was scheduled for next however with the episode of tightness as well as dyspnea with exertion and easy fatigability he elected to be evaluated at the hospital. His initial troponin was elevated 192 and then to 196 and now is back down to 187. Cardiology was consulted and recommended to heparin drip with a cardiac cath in the morning. Clinical time spent in all aspects of patient care: 35 minutes Visit Charges Inpatient E&M: 99580 Init Hosp L2
[2022-01-25 13:56] LABS: Reflex Troponin-HS? (from REC) Y
[2022-01-25 14:19] LABS: Absolute Lymphocyte Count 1.36 X10^3/uL (0.83-4.51); Absolute Neutrophil Count 3.4 X10^3/uL (2.0-7.7); Basophil# 0.04 X10^3/uL; Basophil% 0.7 % (0-1); Eosinophil# 0.25 X10^3/uL; Eosinophils% 4.6 % (0-5); Hemoglobin 15.2 g/dL (13.0-16.5); Lymphocyte # 1.36 X10^3/ul (0.83-4.51); Mean Corp Hgb Conc 33.8 g/dL (32-36); Mean Corpuscular Hgb 31.6 pg (27.0-32.0); Mean Corpuscular Volume 93.6 fL (80-94); Mean Platelet Vol. 11.2 fl (6.2-12.0); Monocyte# 0.37 X10^3/uL; Monocyte% 6.8 % (0-10); NRBC Flagged by Analyzer 0 % (0-5); Neutrophil # 3.38 X10^3/uL (2.7-7.7); Neutrophil % 62.3 % (47-70); Platelet Count 122 K/mm3 (150-450); RBC Distribution Width CV 12.6 % (11.6-14.6); RBC Distribution Width SD 43.3 fl (35.1-43.9); Red Blood Count 4.81 M/mm3 (4.6-6.2); White Blood Count 5.4 K/mm3 (4.4-11.0)
[2022-01-25 14:47] LABS: Troponin-I HS 187 pg/mL (3.0-78.0)
[2022-01-25 14:57] LABS: BNP,B-Type NATRIURETIC PEPTIDE 82.6 pg/mL (0-100)
--- NOTE | 2022-01-25 14:59 | PCM.CONS.C ---
Assessment & Plan Assessment/Plan (1) Non-ST elevated myocardial infarction: PLAN: The patient presents with findings compatible with an acute non-ST segment elevation MS. At the present time there is concern based upon his clinical diagnosis and history of progression of underlying CAD or graft vessel disease. He will continue to be monitored. He will continue medical therapy as deemed appropriate. He has been recommended for further evaluation with diagnostic cardiac catheterization. The procedure and risk were discussed with him. He was agreeable to this approach. (2) CAD (coronary artery disease): QUALIFIERS: Coronary Disease-Associated Artery/Lesion type: bypass graft [place] vs. transplanted heart: [place] heart Associated angina: angina presence unspecified Qualified Code(s): I25.810 - Atherosclerosis of coronary artery bypass graft(s) without angina pectoris PLAN: The patient has a history of extensive CAD. He has undergone PCI and CABG in the past. Again based upon his clinical history and his objective findings he is being monitored, treated medically, and being considered for further evaluation with diagnostic cardiac catheterization. (3) S/P PTCA (percutaneous transluminal coronary angioplasty): PLAN: The patient's most recent cardiac catheterization report from [facility] was reviewed. At that time he did receive a PTCA/no stent. He will continue evaluation and care as noted. (4) S/P CABG x 3: PLAN: The patient has had remote CABG. His most recent cardiac catheterization from [facility] did demonstrate his CHILDERS graft and his radial artery graft to be patent, however, his SVG graft was occluded. He will continue medical therapy and proceed with further evaluation with diagnostic cardiac catheterization. (5) PAD (peripheral artery disease): PLAN: The patient has a history of peripheral artery disease. He states he has an aortic aneurysm of 4 cm. He is unsure whether this is an ascending thoracic aortic aneurysm versus an abdominal aortic aneurysm. Additional cardiovascular records from [facility] will be requested for continuity of care. (6) HLD (hyperlipidemia): PLAN: The patient has a history of hyperlipidemia. He will continue medical management. (7) Benign essential hypertension: PLAN: The patient's blood pressure will need to be monitored with adjustment of his medications as needed. (8) History of diabetes mellitus, type II: PLAN: The patient will continue evaluation care per internal medicine. Addt'l Comments The patient's case was discussed and reviewed with the patient, his spouse, Dr. Muse of the [facility] emergency department staff and Dr. Castellanos of the [facility] hospitalist staff. This note was generated using a voice recognition system and there may be incorrect words, spelling or punctuation that were not noted when reviewing the office note prior to saving. HPI Consult Data Date of Consult: 01/25/22 HPI Narrative HPI Narrative: TOMMY JOSE, is a 66 year old white male who presents for cardiovascular consultation based upon concerns of symptoms compatible with accelerating angina pectoris, abnormal high-sensitivity troponin I level compatible with a non-ST segment elevation MS, superimposed upon a history of underlying CAD, PCI, CABG, peripheral artery disease with an abdominal aortic aneurysm (reported by the family as [facility] studies demonstrating a 4 cm AAA), carotid artery disease status post right carotid artery stent, hyperlipidemia, hypertension, and diabetes mellitus. The patient states that he has been followed by [facility]. Based upon concerns of symptoms that have included exertional chest pressure and shortness of breath/dyspnea, which she states has demonstrated improvement with nitroglycerin sublingual therapy x1, he was to have an upcoming [facility] exercise tolerance test/imaging study. He states his noninvasive studies are usually unremarkable and based upon ongoing symptoms he eventually undergoes diagnostic cardiac catheterization and was found to have progression of disease requiring some form of revascularization. He notes based upon his recent symptoms and blood pressure changes he was evaluated by his local [facility] physician. Outpatient laboratory studies were obtained which included high-sensitivity troponin I levels. They were reported as positive. He was then directed to the [facility] emergency department for further evaluation and care. He states at rest he has not noted ongoing symptoms. He has denied orthopnea and PND. He does have an element of bilateral lower extremity peripheral pitting edema. There has been no report of near syncope or syncope. In the emergency department he was evaluated. He was found to have abnormal high-sensitivity troponin I levels. He had an ECG performed which appeared to demonstrate sinus rhythm with a left axis deviation with right bundle branch block pattern, left anterior fascicular block pattern, and findings compatible with LVH. His states that he recently had a [facility] transthoracic echocardiogram performed in December of this year. She states to the best of their knowledge his LV systolic function was normal. It is noted that while visiting [place] 1 year ago he developed concerning symptoms. He was evaluated in the local emergency department and was thought to have evidence of a non-ST segment elevation MS. He was then transferred to [facility] for further evaluation and care. At that point in time on 01-31-2021 he had a transthoracic echocardiogram performed. The left ventricle was reported as normal with an LVEF of 55 to 60%. On 02-01-2021 he underwent diagnostic cardiac catheterization. Per the report the left main coronary artery demonstrated proximal 20% stenosis and mid 15% stenosis and an area previously treated with a stent. The LAD was reported as occluded at the ostium. The LCx was reported as a large vessel with a proximal 70% stenosis at a site previously treated with a stent, a mid 20% and 30% stenosis, and a distal 50% stenosis. The first obtuse marginal branch was reported as 100% occluded and previously supplied by graft. The second obtuse marginal branch was reported as a small to medium vessel with 80% stenosis. A CHILDERS to the LAD was reported as patent. It noted that the subsequent LAD was smaller in caliber and had mild to moderate disease. A free radial graft to the first marginal branch was reported as patent. The proximal graft had 40% stenosis. The target vessel was smaller in caliber with 80% stenosis. And SVG to the right PDA was reported as patent. The proximal graft had 15% stenosis, the mid graft had 20% stenosis and an area previously treated by a stent, and the distal graft and 20% stenosis. The patient subsequently underwent PTCA/no stent of the proximal LCx system. This used a 3.5x4.0 noncompliant balloon. The patient was subsequently recommended for continued medical management. Since that time he states he has been following with his [facility] cardiovascular team. His other [facility] records are unavailable for review at this time. [facility] Medical History (Updated 01/25/22 @ 18:[address] Simon Herman MD) Abdominal aneurysm Allergies Arthritis Bile duct obstruction Biliary stricture Current use of insulin Diabetes Difficulty balancing Fibromyalgia Gastric paresis GERD (gastroesophageal reflux disease) H/O emotional problems Heart disease History of back problems History of stress test HTN (hypertension) Irritable bowel disease Kidney stones Mirizzi's syndrome Neuropathy Rheumatoid arthritis Stroke Vascular disease Home Medications gabapentin 600 mg tablet 600 mg PO DAILY pain 05/31/14 [History Last Taken 02/25/17] aspirin 81 mg chewable tablet 325 mg PO DAILY@0800 blood thinner 02/25/17 [History Last Taken 04/18/22] atorvastatin 40 mg tablet 40 mg PO QHS cholestrol 02/25/17 [History Last Taken 10/25/21] clopidogrel 75 mg tablet 75 mg PO DAILY blood thinner 02/25/17 [History Last Taken 10/25/21] insulin glargine 100 unit/mL (3 mL) subcutaneous pen 50 unit SQ BID DM 02/25/17 [History Last Taken 02/24/17] lisinopril 5 mg tablet 10 mg PO DAILY BP 02/25/17 [History Last Taken 02/25/17] oxycodone-acetaminophen 5 mg-325 mg tablet 1 tab PO Q8H PRN PRN Pain 02/25/17 [History Last Taken 02/24/17] insulin aspart U-100 100 unit/mL (3 mL) subcutaneous pen (Novolog Flexpen U-100 Insulin aspart) 20 unit subcut TID DM 11/29/19 [History Last Taken Unknown] carvedilol 6.25 mg tablet (Coreg) 6.25 mg PO BID heart 10/28/21 [History Last Taken Unknown] fexofenadine 180 mg tablet 180 mg PO DAILY allergies 10/28/21 [History Last Taken Unknown] lidocaine 5 % topical patch (Lidoderm) 1 patch topical DAILY PRN Back Pain 10/28/21 [History Last Taken Unknown] magnesium oxide 400 mg PO BID PRN supplement 10/28/21 [History Last Taken Unknown] pantoprazole 40 mg tablet,delayed release (Protonix) 40 mg PO DAILY GERD 10/28/21 [History Last Taken Unknown] plecanatide 3 mg tablet (Trulance) 3 mg PO DAILY PRN gastroparesis 10/28/21 [History Last Taken Unknown] oxycodone-acetaminophen 5 mg-325 mg tablet (Percocet) 1 tab PO Q4H PRN pain 5 days #20 tabs 11/02/21 [Rx Last Taken Unknown] Allergy/AdvReac Type Severity Reaction Status Date / Time aripiprazole [From Abilify] Allergy Mild FELT POORLY Verified 01/25/22 11:27 atorvastatin [From Lipitor] Allergy muscle Verified 01/25/22 11:27 aches nabumetone [From Relafen] Allergy GI Verified 01/25/22 11:27 Family History Mother Heart disease Father Heart disease Surgical History (Updated 01/25/22 @ 18:[address] Simon Herman MD) H/O knee surgery History of laparoscopic cholecystectomy Hx of tonsillectomy Stented coronary artery Vertebral artery stenosis Social History household members: spouse Smoking Status: Never smoker alcohol intake: never substance use type: does not use ROS Constitutional Constitutional: Reports as per HPI Eyes Eyes: Reports as per HPI ENT HEENT: Reports as per HPI Cardiovascular Cardiovascular: Reports chest pain with activity, dyspnea on exertion and edema Respiratory/Chest Respiratory/Chest: Reports dyspnea on exertion Gastrointestinal Gastrointestinal: Reports as per HPI Genitourinary Genitourinary: Reports as per HPI Musculoskeletal Musculoskeletal: Reports as per HPI Integumentary Integumentary: Reports as per HPI Neurologic Neurologic: Reports as per HPI Psychiatric Psychiatric: Reports as per HPI Physical Exam Const alert, oriented x3 and no apparent distress HEENT normocephalic, head/scalp atraumatic and hearing grossly normal bilaterally Eyes PERRL, EOMs intact bilaterally, conjunctivae normal and no scleral icterus Neck full ROM, supple and no JVD Carotids: bruit Positive for right Chest Chest: midline sternotomy incision Resp clear to auscultation bilaterally Cardio regular rate, regular rhythm, S1 normal heart sound and S2 normal heart sound GI normal to inspection, nondistended, normoactive bowel sounds Extremity General Extremity: edema bilateral lower extremity Details: mild Skin no rashes or lesions noted Psych mental status grossly normal Risk Stratification Risk Stratification Applicable: Yes Age >/= 65: Yes >/= 3 CAD Risk Factors (HTN, HLD, DM, family hx of CAD, or current smoker): Yes Aspirin Use in the Past 7 Days: Yes Severe Angina (>/= episodes in 24 hours): Yes EKG ST Changes >/= 0.5mm: No Positive Cardiac Marker: Yes DIMITRI Risk Stratification Score: 5 DIMITRI % Risk: 25% Risk Procedure Criteria Type of Procedure Procedure Type: Elective Elective Risks - COVID COVID Risk Discussion: The surgeon/proceduralist and patient have discussed in detail the risk of exposure to and/or potential harm posed by the COVID-19 virus with having a surgery/procedure at this time versus the risk of delaying the surgery/procedure. It is not possible to know either the risk of delaying the surgery or procedure or chance of getting an infection with perfect accuracy, but a joint decision was made between the patient and the surgeon/proceduralist to proceed at this time with the scheduled surgery/procedure as indicated on the consent form. Objective Data Vital Signs: Vital Signs Temp Pulse Resp BP Pulse Ox O2 Del Method 97.9 F 69 16 185/104 H 98 Room Air 01/25/22 14:06 01/25/22 14:06 01/25/22 14:06 01/25/22 14:06 01/25/22 14:06 01/25/22 14:06 Oxygen Delivery Method Room Air Weight: 282 lb 13.649 oz Body Mass Index (BMI) 35.3 Lab / Micro Data Result Diagrams: 01/25/22 13:55 01/25/22 11:51 Labs: Laboratory Results - last 24 hr 01/25/22 11:51: WBC 4.4, RBC 4.96, Hgb 15.7, Hct 46.2, MCV 93.1, MCH 31.7, MCHC 34.0, RDW Std Deviation 43.0, RDW Coeff of Destiny 12.6, Plt Count 120 L, MPV 10.9, Immature Gran % (Auto) 0.200, Neut % (Auto) 65.1, Lymph % (Auto) 23.0, [place] % (Auto) 7.3, Eos % (Auto) 3.9, Baso % (Auto) 0.5, Absolute Neuts (auto) 2.9, Absolute Lymphs (auto) 1.01, Nucleated RBC % 0 01/25/22 11:51: Sodium 138, Potassium 4.4, Chloride 105, Carbon Dioxide 29.0, Anion Gap 4 L, BUN 15, Creatinine 0.98, Estim Creat Clear Calc 89.82, Est GFR (MDRD) Af Amer 98, Est GFR (MDRD) Non-Af 81, BUN/Creatinine Ratio 15.2, Glucose 156 H, Calcium 9.1, Troponin I High Sens 196 H* 01/25/22 11:51: PT 13.9, INR 1.1, APTT 30.0 01/25/22 11:51: B-Natriuretic Peptide 82.6 01/25/22 13:55: WBC 5.4, RBC 4.81, Hgb 15.2, Hct 45.0, MCV 93.6, MCH 31.6, MCHC 33.8, RDW Std Deviation 43.3, RDW Coeff of Destiny 12.6, Plt Count 122 L, MPV 11.2, Immature Gran % (Auto) 0.600, Neut % (Auto) 62.3, Lymph % (Auto) 25.0, [place] % (Auto) 6.8, Eos % (Auto) 4.6, Baso % (Auto) 0.7, Absolute Neuts (auto) 3.4, Absolute Lymphs (auto) 1.36, Nucleated RBC % 0 01/25/22 13:55: Troponin I High Sens Cancelled 01/25/22 13:55: Troponin I High Sens 187 H* Cardiology Labs/Tests 01/25/22 11:51: WBC 4.4, RBC 4.96, Hgb 15.7, Hct 46.2, MCV 93.1, MCH 31.7, MCHC 34.0, Plt Count 120 L, MPV 10.9, Immature Gran % (Auto) 0.200, Neut % (Auto) 65.1, Lymph % (Auto) 23.0, [place] % (Auto) 7.3, Eos % (Auto) 3.9, Baso % (Auto) 0.5, Absolute Neuts (auto) 2.9, Nucleated RBC % 0 01/25/22 11:51: Sodium 138, Potassium 4.4, Chloride 105, Carbon Dioxide 29.0, Anion Gap 4 L, BUN 15, Creatinine 0.98, Est GFR (MDRD) Af Amer 98, Est GFR (MDRD) Non-Af 81, BUN/Creatinine Ratio 15.2, Glucose 156 H, Calcium 9.1 01/25/22 11:51: PT 13.9, INR 1.1, APTT 30.0 01/25/22 11:51: B-Natriuretic Peptide 82.6 01/25/22 13:55: WBC 5.4, RBC 4.81, Hgb 15.2, Hct 45.0, MCV 93.6, MCH 31.6, MCHC 33.8, Plt Count 122 L, MPV 11.2, Immature Gran % (Auto) 0.600, Neut % (Auto) 62.3, Lymph % (Auto) 25.0, [place] % (Auto) 6.8, Eos % (Auto) 4.6, Baso % (Auto) 0.7, Absolute Neuts (auto) 3.4, Nucleated RBC % 0 Rhythm: Sinus rhythm EKG: As noted above ECHO: 10-31-2012 Left ventricle reported as normal with an LVEF of 55% Mildly dilated aortic root Stress Test: DATE OF SERVICE:? 01/05/2016 This is a 60-year-old man with a history of coronary artery bypass surgery, hypertension, and coronary artery disease. MEDICATIONS: NovoLog, carvedilol, Actos, Lipitor, ____, gabapentin. Resting EKG demonstrates normal sinus rhythm with a rate of 75 beats per minute.? Normal intervals are noted.? Resting blood pressure was 140/90. The patient exercised according to a regular Johnie protocol for a total duration of 7 minutes and 41 seconds.? The maximum heart rate attained was 144 beats per minute, which was 89% of maximum predicted heart rate.? The maximum workload attained was 8.2 METS.? At rest, there were no ST or T-wave changes noted to suggest ischemia.? At peak exercise, there was upsloping change of approximately 0.7 mm noted in leads II, III and aVF and V6. ?The above was not diagnostic of ischemia.? No clinical angina was noted.? No arrhythmias were noted.? During recovery, ST changes returned back to baseline and those T-wave inversions noted in the inferolateral leads. Resting blood pressure was 140/90 with a peak blood pressure of 164/74.? No clinical angina was noted. MYOCARDIAL PERFUSION PROTOCOL: 15.0 mCi of sestamibi was injected at rest.? The patient exercised according to a regular Johnie protocol for a total duration of 7 minutes and 41 seconds attaining 89% of maximum predicted heart rate.? At peak exercise, 44.7 mCi of sestamibi was injected.? Stress images were obtained.? Stress and rest images were reconstructed and compared in the short axis, vertical long and horizontal long axes.? Gated images were also obtained. PERFUSION SPECT ANALYSIS: Review of the images demonstrates normal cardiac silhouette size.? There is normal uptake of tracer noted in the septum, anterior wall, lateral wall and inferior wall.? The basal inferior wall; however, has a small defect present.? The resting images demonstrate a similar pattern suggestive of a previous basal inferior infarct.? No ischemia is noted. GATED SPECT ANALYSIS: The gated ejection fraction is noted to be 45% with mild inferobasal hypokinesis. CONCLUSION: 1.? Exercise myocardial perfusion stress test with no evidence of ischemia at a moderate workload. 2.? Previous basal inferior infarct is present. 3.? Good functional work capacity. Cardiac Cath: 02-01-2021: [facility]: As noted above PCI: 02-01-2021: [facility]: As noted above CT Surgery: Date: Per patient: Approximately 20 years ago: [facility] CHILDERS to LAD Radial artery to OM SVG to right PDA Holter monitor:/Event monitor: 02-12-2021 Sinus rhythm with second-degree AV block with Mobitz 1 Radiography Diagnostic Testing: Radiology Impression Chest X-Ray 01/25/22 12:20 IMPRESSION: No acute abnormality is seen. Electronically Signed: Robbin Alanis MD at 12:41 EDT ,
--- NOTE | 2022-01-25 14:59 | CASEMGMT ---
Tertiary facilities in-network with patient's insurance: [facility], [facility], [facility], [facility], [facility], [facility], [facility], and .
--- NOTE | 2022-01-25 15:07 | EKG12_ITS ---
Test Reason : POST CATH Blood Pressure : / mmHG Vent. Rate : 045 BPM Atrial Rate : 064 BPM P-R Int : 000 ms QRS Dur : 136 ms QT Int : 496 ms P-R-T Axes : 058 -58 084 degrees QTc Int : 429 ms Sinus rhythm with 2nd degree A-V block (Mobitz I) Left axis deviation Right bundle branch block Left ventricular hypertrophy with repolarization abnormality ( R in aVL , Romhilt-Casper ) Abnormal ECG When compared with ECG of 25-JAN-2022 14:21, MANUAL COMPARISON REQUIRED, DATA IS UNCONFIRMED Confirmed by JEREMY LECHUGA, MARCIAL ([id number]), editor news AISHA ROSS ([id number]) on 02/01/2022 11:06:49 AM Referred By: Confirmed By:MARCIAL LUNA MD
[2022-01-25] MEDS: Insulin Lispro 100 UNIT/ML INSULN.PEN 20 UNIT SC (17:56)
[2022-01-25 18:14] LABS: Troponin-I HS 199 pg/mL (3.0-78.0)
[2022-01-25 18:21] LABS: Bedside Glucose 127 mg/dL (74-106)
[2022-01-25 19:05] LABS: Anion Gap 6 (5-15); BUN 13 mg/dL (7-18); BUN/Creat Ratio 13.8 RATIO (10-20); Calcium,Total 9.4 mg/dL (8.5-10.1); Chloride 105 mmol/L (98-107); Creatinine, Serum 0.94 mg/dL (0.70-1.30); EST Glomerular Filtration Rate 85 mL/min (>60); Est Glom Filt Rate - Afr Amer 103 mL/min (>60); Estimated Creatinine Clearance 93.64 ml/min; Glucose 129 mg/dL (74-106); Potassium 4.1 mmol/L (3.5-5.1); Sodium Level 140 mmol/L (136-145)
[2022-01-25 19:12] LABS: Partial Thromboplast Time 172.6 Seconds (24.1-36.2)
[2022-01-25] MEDS: amLODIPine 2.5 MG Tablet PO (19:12)
[2022-01-25] MEDS: Furosemide 20 MG/2 ML VIAL IV (19:12)
[2022-01-25] MEDS: 0.9% Saline Lock 10 ML Syringe IV (19:12)
[2022-01-25] MEDS: Atorvastatin Calcium 40 MG Tablet PO (21:44)
[2022-01-25] MEDS: Carvedilol 12.5 MG Tablet PO (21:45)
[2022-01-25 22:50] LABS: Bedside Glucose 120 mg/dL (74-106)
[2022-01-26] VITALS (18 sets, daily range): BP systolic 100–146; BP diastolic 56–74; PULSE 60–69; RESP 16; TEMP 36.4–36.9; O2SAT 95–99; BMI 31.1
--- NOTE | 2022-01-26 05:55 | EKG12_ITS ---
Test Reason : RYTHM CHANGE Blood Pressure : / mmHG Vent. Rate : 052 BPM Atrial Rate : 065 BPM P-R Int : 000 ms QRS Dur : 134 ms QT Int : 460 ms P-R-T Axes : 062 -59 108 degrees QTc Int : 427 ms Sinus rhythm with 2nd degree A-V block (Mobitz I) Left axis deviation Right bundle branch block Left ventricular hypertrophy with repolarization abnormality ( R in aVL , Romhilt-[place] ) Abnormal ECG No previous ECGs available Confirmed by JEREMY LECHUGA, MARCIAL ([id number]), design editor AISHA ROSS ([id number]) on 02/01/2022 11:07:37 AM Referred By: Confirmed By:MARCIAL LUNA MD
[2022-01-26 06:00] LABS: Absolute Lymphocyte Count 1.37 X10^3/uL (0.83-4.51); Absolute Neutrophil Count 3.9 X10^3/uL (2.0-7.7); Basophil# 0.04 X10^3/uL; Basophil% 0.7 % (0-1); Eosinophil# 0.21 X10^3/uL; Eosinophils% 3.4 % (0-5); Hematocrit 44.6 % (40-54); Hemoglobin 15.1 g/dL (13.0-16.5); Lymphocyte # 1.37 X10^3/ul (0.83-4.51); Lymphocyte % 22.5 % (19-41); Mean Corp Hgb Conc 33.9 g/dL (32-36); Mean Corpuscular Hgb 31.5 pg (27.0-32.0); Mean Corpuscular Volume 92.9 fL (80-94); Mean Platelet Vol. 11.4 fl (6.2-12.0); Monocyte# 0.57 X10^3/uL; Monocyte% 9.4 % (0-10); NRBC Flagged by Analyzer 0 % (0-5); Neutrophil # 3.88 X10^3/uL (2.7-7.7); Neutrophil % 63.7 % (47-70); Platelet Count 135 K/mm3 (150-450); RBC Distribution Width CV 12.6 % (11.6-14.6); RBC Distribution Width SD 43.1 fl (35.1-43.9); White Blood Count 6.1 K/mm3 (4.4-11.0)
[2022-01-26 06:10] LABS: Anion Gap 7 (5-15); BUN 17 mg/dL (7-18); BUN/Creat Ratio 15.9 RATIO (10-20); Calcium,Total 9.2 mg/dL (8.5-10.1); Chloride 104 mmol/L (98-107); Creatinine, Serum 1.07 mg/dL (0.70-1.30); EST Glomerular Filtration Rate 74 mL/min (>60); Est Glom Filt Rate - Afr Amer 89 mL/min (>60); Estimated Creatinine Clearance 82.26 ml/min; Glucose 145 mg/dL (74-106); Potassium 3.8 mmol/L (3.5-5.1); Sodium Level 139 mmol/L (136-145)
[2022-01-26] MEDS: Aspirin 325 MG Tablet PO (06:39)
[2022-01-26] MEDS: 0.9% Normal Saline 1,000 ML 15 ML IV (06:39)
[2022-01-26] MEDS: Lisinopril 10 MG Tablet PO (06:40)
[2022-01-26] MEDS: Clopidogrel Bisulfate 75 MG Tablet PO (06:40)
[2022-01-26] MEDS: Carvedilol 12.5 MG Tablet PO ×2 (06:40→22:19)
[2022-01-26] MEDS: amLODIPine 2.5 MG Tablet PO (06:40)
--- NOTE | 2022-01-26 09:40 | PCIREPORT_ITS ---
PCI Cardiac Cath Report PCI Report: 1. Successful PCI of the proximal femoral left circumflex in-stent restenosis 80% with predilatation Using NC 3 x 15 mm Euphora balloon, followed by [place] Cutting Balloon 3 x 10 mm, followed by placement of drug-eluting stent 3.5 x 18 mm Orsiro [facility]/RAY Followed by postdilatation using 3.5 x 12 mm NC Euphora balloon and reduction of stenosis from 80% to 0% and maintenance of pre and post DIMITRI-3 flow. 2. Successful PCI and stent of mid left circumflex diffuse coronary atherosc lerosis of 80% with predilatation, followed by placement of drug-eluting stent 2.25 x 22 mm With RAY/Orsiro reduction of stenosis to 0% and maintenance of pre and post DIMITRI-3. 3. Selective right common femoral artery angiography and placement of Perclose to close The right common femoral artery arteriotomy site. Consent; Risk and benefit of procedure explained in detail patient elected to proceed informed consent obtained. Preprocedure diagnosis 66-year-old patient with extensive cardiac history Patient underwent cardiac catheterization today by his primary emergency room orderly Dr. Mark resendiz Patient had non-ST elevation PA he had severe coronary artery atherosclerosis involving the [place] coronary arteries and had symptoms of shortness of breath on exertion Patient had severe three-vessel CAD with the CABG x3. Patient recently had cardiac catheterization at [facility]. The CHILDERS to LAD is patent as well as the radial graft to the OM1 was patent. SVG graft was occluded and then he underwent evaluation today angiographic views were studied This patient has a prior balloon angioplasty of the proximal left circumflex stent now he is presenting with severe in-stent stenosis of around 80% and diffuse atherosclerosis of the mid to distal left circumflex artery. Echocardiographic evaluation LV systolic function preserved with no significant valvular abnormality. With normal ejection fraction Interventional equipment used; 1. 6 [place] 3.5 EBU guide catheter 2. 0.014 run-through extra floppy 180 cm straight wire 3. 0.035 150 cm standard J-wire 4. 0.035 to 60 cm J exchange wire 5. Emerge MR 2 x 15 mm balloon 6. Emerge MR 2.5 x 15 mm balloon. 7. NC Euphora 3 x 15 mm balloon 8. NC Euphora 3.5 x 12 mm balloon 9. Warfarin Cutting Balloon 3 x 10 mm 10. Drug-eluting stent Orsiro/RAY 2.25 x 22 mm 11. Drug-eluting stent Orsiro/[facility] 2.5 x 18 mm Medication used in the Piece Dye Worker #1 patient received 300 mg of Plavix 2. Aspirin 325 mg 3. Heparin a total of 10,000 unit ACT level acceptable Access; 6 [place] sheath placed in the right common femoral artery Procedure in detail; Under fluoroscopic guidance we proceed with a 6 [place] 3.5 EBU guide catheter advanced sending aorta cannulated the left main without difficulty Following this angiographic view of the left coronary system obtained in KARL caudal spider view And then will proceed with run-through wire across the lesion and placed in the distal part of the left circumflex artery Then we followed by balloon dilatation using 2 x 15 followed by 2.5 x 15 to the mid to distal left circumflex, followed by placement of drug-eluting stent As explained 2.25 x 22 mm And then we proceed with balloon dilatation of the proximal left circumflex in- stent restenosis using a cutting balloon followed by placement of drug-eluting stent 3.5 x 18 mm followed by postdilated Successful percutaneous core intervention of the proximal and mid to distal left circumflex with predilatation followed by placement of drug-eluting stent at the specified Following this selective right common femoral artery angiography obtained and Perclose used successfully to close the right common femoral artery arteriotomy site And manual pressure was maintained while in the Piece Dye Worker Conclusion and recommendation 1. This patient has extensive cardiac history with severe three-vessel coronary artery disease and severe in-stent stenosis of the left circumflex 1. To continue on DAPT Plavix 75 mg and low-dose aspirin 81 mg for 1 year 2. Patient is scheduled for phase 1 cardiac rehab program at [facility] 3. Patient will follow up with her primary emergency room orderly Dr. Herman No complication in the Piece Dye Worker Ciera Mai MD,[facility]
--- NOTE | 2022-01-26 09:45 | EKG12_ITS ---
Test Reason : cp admit Blood Pressure : / mmHG Vent. Rate : 068 BPM Atrial Rate : 068 BPM P-R Int : 272 ms QRS Dur : 132 ms QT Int : 464 ms P-R-T Axes : 058 -58 099 degrees QTc Int : 493 ms Sinus rhythm with 1st degree A-V block Left axis deviation Right bundle branch block Left ventricular hypertrophy with repolarization abnormality ( R in aVL , Romhilt-[place] ) Abnormal ECG When compared with ECG of 29-OCT-2021 15:25, No significant change was found Confirmed by JEREMY LECHUGA, MARCIAL ([id number]), art editor AISHA ROSS ([id number]) on 02/01/2022 11:08:58 AM Referred By: Frank Confirmed By:MARCIAL LUNA MD
--- NOTE | 2022-01-26 10:00 | EKG12_ITS ---
Test Reason : repeat Blood Pressure : / mmHG Vent. Rate : 071 BPM Atrial Rate : 071 BPM P-R Int : 238 ms QRS Dur : 132 ms QT Int : 438 ms P-R-T Axes : 006 -31 152 degrees QTc Int : 475 ms Poor data quality, interpretation may be adversely affected Sinus rhythm with 1st degree A-V block with Premature atrial complexes with Aberrant conduction Left axis deviation Right bundle branch block Left ventricular hypertrophy with repolarization abnormality ( R in aVL , [place] ) Cannot rule out Septal infarct , age undetermined Abnormal ECG When compared with ECG of 27-JAN-2022 05:37, MANUAL COMPARISON REQUIRED, DATA IS UNCONFIRMED Confirmed by JEREMY LECHUGA, MARCIAL ([id number]), rewrite editor AISHA ROSS ([id number]) on 02/02/2022 12:57:11 PM Referred By: Emanuel Confirmed By:AMRCIAL LUNA MD
[2022-01-26] MEDS: Insulin Glargine-YFGN 100 UNIT/ML Pen 50 UNIT SC (11:05)
[2022-01-26] MEDS: Insulin Lispro 100 UNIT/ML INSULN.PEN 20 UNIT SC ×2 (11:05→17:31)
[2022-01-26] MEDS: Insulin Lispro 100 UNIT/ML INSULN.PEN SC (11:05)
[2022-01-26] MEDS: Gabapentin 600 MG Tablet PO (11:11)
[2022-01-26] MEDS: Pantoprazole Sodium 40 MG Tablet PO (11:11)
--- NOTE | 2022-01-26 11:14 | CL.D_ITS ---
Patient Name: TOMMY JOSE Study Date: 01/26/2022 Performing: Simon Herman MD Ht: 75.2 inches 191 cm : 1955 Wt: 249.12 lbs 113 kg Age: 66 Gender: male BSA: 2.41 PROCEDURE(S) PERFORMED DC02-([id number])LHC/COR IC12-([id number])RAY W/WO PTCA, SINGLE CORONARY ARTERY CLINICAL PROFILE AND INDICATIONS Indications: ACS <= 24 hrs, Suspected CAD Heart Failure: None Stress/Imaging Stress/Image Study Performed: No Angina Classification Anginal Classification w/in 2 Weeks: CCS III CAD Presentations: Non-STEMI. CONCLUSIONS [place] Multivessel CAD CHILDERS to LAD: patent Radial artery graft to OM1: patent SVG to RPDA: patent LCX: proximal stent: instent restenosis: 85% SVG stent: patent Collateral flow: right to left RECOMMENDATIONS Risk factor modification Medical therapy Referred for immediate PCI Case discussed / reviewed with Dr. Mai of Interventional Cardiology DESCRIPTION OF PROCEDURE The patient arrived to the procedure lab. The risks and benefits of the procedure as well as a full d escription of our services here and current unavailability of surgical backup were fully explained to the patient and/or their significant other prior to the catheterization. The Timeout was completed, verifying the correct patient and procedure. The patient's procedural site was prepped and draped in the usual fashion. Local anesthetic was given subcutaneously to right groin region with Lidocaine 2%. Using a modified Seldinger technique, arterial access was obtained via the right femoral artery, a 4 Fr sheath was inserted Left Coronary Artery selective angiography was performed in multiple views us ing a 4 Fr. JL5 catheter. Right Coronary Artery selective angiography was then performed in multiple views using a 4 Fr. 3DRC catheter. Saphenous Vein graft to the OM 1 selective angiography was perform ed in multiple views using a 4 Fr. JR4 catheter. Left internal mammary artery graft to the LAD selective angiography was performed in multiple views using a 4 Fr. IM catheter. Saphenous Vein g raft to the RPDA selective angiography was performed in multiple views using a 4 Fr. MPA 2 catheter.C ontrast was injected through the sheath and the Right Iliac and Femoral artery were assessed for poss ible closure device.The arterial sheath was pulled and a Perclose closure device was deployed for hem ostasis CORONARY ANGIOGRAPHY DOMINANCE: Right Dominant LEFT MAIN: Previously placed stent is patent with mild luminal irregularities LEFT ANTERIOR DESCENDING ARTERY: OSTIAL LAD: is occluded MID LAD: to distal vessel: (small caliber vessel): filling from the CHILDERS graft wtih no angiographical ly significant disease distal to the graft attachment CIRCUMFLEX ARTERY: PROX CIRC: Previously placed stent has an instent 85 % restenosis MID CIRC: Mild luminal irregularities and diffuse eccentric 25% stenosis DISTAL CIRC: Mild luminal irregularities and diffuse eccentric 25% stenosis OM 1: (small caliber vesseld): Proximal - fills from the radial artery graft with diffuse 50 - 75% di sease distal to the graft attachment RIGHT CORONARY ARTERY: PROX RCA: is occluded RT PDA: Proximal - fills from the SVG graft with no angiographically significant disease distal to th e graft attachment GRAFTS: CHILDERS graft to the Mid LAD is patent Radial graft to the 1st OM is patent Saphenous Vein graft to the RPDA previously placed stent is patent COLLATERAL FLOW: Collateral flow from Right to Left COMPLICATIONS No Complications PROCEDURE MEDICATIONS Versed 1 mg IV Fentanyl 50 mcg IV Fentanyl 50 mcg IV Oxygen: 2 L/min via nasal cannula Heparin 7000 unit(s) IV 01/26/2022 08:32:57 Heparin 3000 unit(s) IV 01/26/2022 09:18:49 Plavix 225 mg PO 01/26/2022 08:30:57 SUMMARY OF HEMODYNAMIC DATA Time AIR REST ECG 07:32:55 AO 162/82 (118) SA 07:58:29 Signed By Simon Herman MD On 01/26/2022 11:14:01 Simon Herman MD
[2022-01-26 11:30] LABS: Bedside Glucose 180 mg/dL (74-106)
--- NOTE | 2022-01-26 11:52 | PN.HOSP_ITS ---
Documented by User: Sofy Riggs NP, SHOEMAKING CUTTER-C 01/26/22 12:01 Subjective Subjective Patient seen and examined. Underwent heart cath this morning with stent x2. Denies current chest pain, shortness of breath. Reports some back pain due to lying flat. Objective Data Objective Data Vital Signs: Vital Signs Temp Pulse Resp BP Pulse Ox O2 Del Method 98.4 F 60 16 121/68 H 95 Room Air 01/26/22 06:36 01/26/22 11:00 01/26/22 11:00 01/26/22 11:00 01/26/22 11:00 01/26/22 11:00 Oxygen Delivery Method Room Air Weight: 249 lb Body Mass Index (BMI) 31.1 Intake & Output: Intake and Output for Last 24 Hours 01/24/22 01/25/22 01/26/22 23:59 23:59 23:59 Intake Total 298 / 298 122.4 / 122.4 Balance 298 / 298 122.4 / 122.4 Lab / Micro Data Result Diagrams: 01/26/22 03:24 01/26/22 03:24 Labs: Laboratory Results - last 24 hr 01/25/22 11:51: WBC 4.4, RBC 4.96, Hgb 15.7, Hct 46.2, MCV 93.1, MCH 31.7, MCHC 34.0, RDW Std Deviation 43.0, RDW Coeff of Destiny 12.6, Plt Count 120 L, MPV 10.9, Immature Gran % (Auto) 0.200, Neut % (Auto) 65.1, Lymph % (Auto) 23.0, [place] % (Auto) 7.3, Eos % (Auto) 3.9, Baso % (Auto) 0.5, Absolute Neuts (auto) 2.9, Absolute Lymphs (auto) 1.01, Nucleated RBC % 0 01/25/22 11:51: Sodium 138, Potassium 4.4, Chloride 105, Carbon Dioxide 29.0, Anion Gap 4 L, BUN 15, Creatinine 0.98, Estim Creat Clear Calc 89.82, Est GFR ( MDRD) Af Amer 98, Est GFR (MDRD) Non-Af 81, BUN/Creatinine Ratio 15.2, Glucose 156 H, Calcium 9.1, Troponin I High Sens 196 H* 01/25/22 11:51: PT 13.9, INR 1.1, APTT 30.0 01/25/22 11:51: B-Natriuretic Peptide 82.6 01/25/22 13:55: WBC 5.4, RBC 4.81, Hgb 15.2, Hct 45.0, MCV 93.6, MCH 31.6, MCHC 33.8, RDW Std Deviation 43.3, RDW Coeff of Destiny 12.6, Plt Count 122 L, MPV 11.2, Immature Gran % (Auto) 0.600, Neut % (Auto) 62.3, Lymph % (Auto) 25.0, [place] % (Auto) 6.8, Eos % (Auto) 4.6, Baso % (Auto) 0.7, Absolute Neuts (auto) 3.4, Absolute Lymphs (auto) 1.36, Nucleated RBC % 0 01/25/22 13:55: Sodium 140, Potassium 4.1, Chloride 105, Carbon Dioxide 29.0, Anion Gap 6, BUN 13, Creatinine 0.94, Estim Creat Clear Calc 93.64, Est GFR (MDRD) Af Amer 103, Est GFR (MDRD) Non-Af 85, BUN/Creatinine Ratio 13.8, Glucose 129 H, Calcium 9.4, Troponin I High Sens Cancelled 01/25/22 13:55: Troponin I High Sens 187 H* 01/25/22 16:56: POC Glucose 127 H 01/25/22 17:37: Troponin I High Sens 199 H* 01/25/22 18:49: APTT 172.6 H* 01/25/22 21:40: POC Glucose 120 H 01/26/22 03:24: WBC 6.1, RBC 4.80, Hgb 15.1, Hct 44.6, MCV 92.9, MCH 31.5, MCHC 33.9, RDW Std Deviation 43.1, RDW Coeff of Destiny 12.6, Plt Count 135 L, MPV 11.4, Immature Gran % (Auto) 0.300, Neut % (Auto) 63.7, Lymph % (Auto) 22.5, [place] % (Auto) 9.4, Eos % (Auto) 3.4, Baso % (Auto) 0.7, Absolute Neuts (auto) 3.9, Absolute Lymphs (auto) 1.37, Nucleated RBC % 0 07/20/22 03:24: Sodium 139, Potassium 3.8, Chloride 104, Carbon Dioxide 28.0, Anion Gap 7, BUN 17, Creatinine 1.07, Estim Creat Clear Calc 82.26, Est GFR (MDRD) Af Amer 89, Est GFR (MDRD) Non-Af 74, BUN/Creatinine Ratio 15.9, Glucose 145 H, Calcium 9.2 01/26/22 11:02: POC Glucose 180 H Radiography Diagnostic Testing: Radiology Impression Chest X-Ray 01/25/22 12:20 IMPRESSION: No acute abnormality is seen. Electronically Signed: Robbin Alanis MD at 12:41 EDT , Physical Exam Const alert, oriented x3 and no apparent distress Orientation / Consciousness: awake, oriented to person, oriented to place and oriented to time HEENT normocephalic and moist oral mucous membranes Eyes PERRL, EOMs intact bilaterally and conjunctivae normal Neck no lymphadenopathy Resp normal respiratory effort and clear to auscultation bilaterally Cardio regular rate, regular rhythm and no murmurs Peripheral Pulses: pulses 2+ throughout GI normal to inspection, nondistended, normoactive bowel sounds, non-tender and non-distended Extremity normal to inspection Skin no rashes or lesions noted Skin Narrative: Right groin site intact Lesions: no lesions Rashes: no rashes Trauma: no lacerations or abrasions Neuro CN's II-XII intact bilaterally, no focal motor deficits, no sensory deficits noted and deep tendon reflexes 2+ bilaterally Psych mental status grossly normal and affect normal Assessment & Plan Assessment/Plan (1) S/P PTCA (percutaneous transluminal coronary angioplasty): PLAN: Plan 1. NSTEMI, unstable angina-cardiology consulted.? Continue aspirin, statin, Plavix, beta noris. Underwent heart cath 01/26/2022 with successful PCI of the proximal femoral left circumflex as well as PCI and stent of mid left circumflex. 2. CAD with history of CABG and stents-continue aspirin, statin, Plavix, carvedilol, lisinopril. Follows with [facility] [place] [facility]. 3. Type 2 diabetes mellitus with polyneuropathy and izeoqeuuyreea-Ssgy-Brxmo with sliding scale insulin.? Continue home insulin regimen.? Continue gabapentin. 4. Mirizzi syndrome- S/P lap jeramy. Following with GI. 5. Vertebral artery stenosis status post stenting 6. Hypertension-stable, continue current regimen. 7.Hyperlipidemia-continue statin. 8. Ascending aortic aneurysm-patient reports stable.? Continue outpatient follow-up. 9. History of CVA- on aspirin, statin, Plavix. 10. GERD-continue PPI. DVT prophylaxis- heparin This patient was seen by SHARMAINE Kirkpatrick under the supervision of Dr. Castellanos. Time spent examining patient, reviewing data and subsequent management of care: 14 minutes Documented by User: Dr. Baldev Castellanos MD 01/26/22 12:22 Objective Data Lab / Micro Data Result Diagrams: 01/26/22 03:24 01/26/22 03:24 Assessment & Plan Assessment/Plan (1) S/P PTCA (percutaneous transluminal coronary angioplasty): Charges/Coding Addendum Addendum: Dr. Castellanos I personally examined the patient and reviewed the chart. I agree with the above.? 66-year-old male with a history of coronary artery disease status post CABG as well as multiple stents presents with chest pain.? He had an episode of chest pain about 2 weeks ago which was relieved with nitro.? He went to see his primary sheet cutting operator who had set up an outpatient stress test which was scheduled for next however with the episode of tightness as well as dyspnea with exertion and easy fatigability he elected to be evaluated at the hospital.? His initial troponin was elevated 192 and then to 196 and now is back down to 187.? Cardiology was consulted and recommended to heparin drip with a cardiac cath in the morning.? Clinical time spent in all aspects of patient care: 35 minutes 01/26/2022: Doing well, underwent heart cath today which did not necessitate intervention with a stent in the left circumflex secondary to in-stent restenosis as well as a mid circumflex stent. We will continue you with his dual antiplatelet medications. We will also adjust his blood pressure medications and monitor overnight. Clinical time spent in all aspects of patient care: 18 minutes Visit Charges Inpatient E&M: 21379 Subs Hosp L2
--- NOTE | 2022-01-26 12:18 | CHAPLAIN ---
Type of Pastoral Visit _x__ Initial Visit ___ Follow-up Visit ___ On-call Visit ___ General Patient Visit ___ Spiritual Assessment ___ Family Conference ___ Bereavement ___ Rapid Response ___ Code Blue ___ Other (describe below) Pastoral Care Referral From _x__ Patient ___ Family ___ Nurse ___ Physician ___ Crown Perforator Operator ___ Museum Security Chief ___ Other (describe below) Sacrament/Intervention _x__ Active listening ___ Anointing ___ Restorationism ___ Bereavement ___ Communion _x__ Julisa exploration ___ _x__ Life review _x__ Prayer ___ Reconciliation ___ Sacrament of Sick _x__ Supportive presence ___ Wedding ___ Other (describe below) Pastoral Comments patient had stents put in place this morning and is now waiting for recovery process to be completed; spouse at bedside; pt reviews his many surgeries and heart difficulties over the years; pt states God must not be done with me yet, right?; pt displays positive attitude and states that he has come this far by God's help; pt welcomes prayer and presence of spiritual care
--- NOTE | 2022-01-26 12:28 | PN.CARD_ITS ---
Subjective Subjective The underwent diagnostic cardiac catheterization and subsequent LCx PTCA/stent earlier this day without obvious adverse events. He appears to be resting comfortably at this time. Objective Data Vital Signs: Vital Signs Temp Pulse Resp BP Pulse Ox O2 Del Method 98.4 F 64 16 120/59 L 99 Room Air 01/26/22 06:36 01/26/22 11:30 01/26/22 11:30 01/26/22 11:30 01/26/22 11:30 01/26/22 11:30 Oxygen Delivery Method Room Air Weight: 249 lb Body Mass Index (BMI) 31.1 Intake & Output: Intake and Output for Last 24 Hours 01/24/22 01/25/22 01/26/22 23:59 23:59 23:59 Intake Total 298 / 298 362.4 / 362.4 Output Total 300 / 300 Balance 298 / 298 62.4 / 62.4 Lab / Micro Data Result Diagrams: 01/26/22 03:24 01/26/22 03:24 Labs: Laboratory Results - last 24 hr 01/25/22 11:51: Sodium 138, Potassium 4.4, Chloride 105, Carbon Dioxide 29.0, Anion Gap 4 L, BUN 15, Creatinine 0.98, Estim Creat Clear Calc 89.82, Est GFR (M DRD) Af Amer 98, Est GFR (MDRD) Non-Af 81, BUN/Creatinine Ratio 15.2, Glucose 156 H, Calcium 9.1, Troponin I High Sens 196 H* 01/25/22 11:51: B-Natriuretic Peptide 82.6 01/25/22 13:55: WBC 5.4, RBC 4.81, Hgb 15.2, Hct 45.0, MCV 93.6, MCH 31.6, MCHC 33.8, RDW Std Deviation 43.3, RDW Coeff of Destiny 12.6, Plt Count 122 L, MPV 11.2, Immature Gran % (Auto) 0.600, Neut % (Auto) 62.3, Lymph % (Auto) 25.0, [place] % (Auto) 6.8, Eos % (Auto) 4.6, Baso % (Auto) 0.7, Absolute Neuts (auto) 3.4, Ab solute Lymphs (auto) 1.36, Nucleated RBC % 0 01/25/22 13:55: Sodium 140, Potassium 4.1, Chloride 105, Carbon Dioxide 29.0, Anion Gap 6, BUN 13, Creatinine 0.94, Estim Creat Clear Calc 93.64, Est GFR (MDRD) Af Amer 103, Est GFR (MDRD) Non-Af 85, BUN/Creatinine Ratio 13.8, Glucose 129 H, Calcium 9.4, Troponin I High Sens Cancelled 01/25/22 13:55: Troponin I High Sens 187 H* 01/25/22 16:56: POC Glucose 127 H 01/25/22 17:37: Troponin I High Sens 199 H* 01/25/22 18:49: APTT 172.6 H* 01/25/22 21:40: POC Glucose 120 H 01/26/22 03:24: WBC 6.1, RBC 4.80, Hgb 15.1, Hct 44.6, MCV 92.9, MCH 31.5, MCHC 33.9, RDW Std Deviation 43.1, RDW Coeff of Destiny 12.6, Plt Count 135 L, MPV 11.4, Immature Gran % (Auto) 0.300, Neut % (Auto) 63.7, Lymph % (Auto) 22.5, [place] % (Auto) 9.4, Eos % (Auto) 3.4, Baso % (Auto) 0.7, Absolute Neuts (auto) 3.9, Absolute Lymphs (auto) 1.37, Nucleated RBC % 0 01/26/22 03:24: Sodium 139, Potassium 3.8, Chloride 104, Carbon Dioxide 28.0, Anion Gap 7, BUN 17, Creatinine 1.07, Estim Creat Clear Calc 82.26, Est GFR (MDRD) Af Amer 89, Est GFR (MDRD) Non-Af 74, BUN/Creatinine Ratio 15.9, Glucose 145 H, Calcium 9.2 01/26/22 11:02: POC Glucose 180 H Cardiology Labs/Tests 01/25/22 11:51: Sodium 138, Potassium 4.4, Chloride 105, Carbon Dioxide 29.0, Anion Gap 4 L, BUN 15, Creatinine 0.98, Est GFR (MDRD) Af Amer 98, Est GFR (MDRD) Non-Af 81, BUN/Creatinine Ratio 15.2, Glucose 156 H, Calcium 9.1 01/25/22 11:51: B-Natriuretic Peptide 82.6 01/25/22 13:55: WBC 5.4, RBC 4.81, Hgb 15.2, Hct 45.0, MCV 93.6, MCH 31.6, MCHC 33.8, Plt Count 122 L, MPV 11.2, Immature Gran % (Auto) 0.600, Neut % (Auto) 62.3, Lymph % (Auto) 25.0, [place] % (Auto) 6.8, Eos % (Auto) 4.6, Baso % (Auto) 0.7, Absolute Neuts (auto) 3.4, Nucleated RBC % 0 01/25/22 13:55: Sodium 140, Potassium 4.1, Chloride 105, Carbon Dioxide 29.0, Anion Gap 6, BUN 13, Creatinine 0.94, Est GFR (MDRD) Af Amer 103, Est GFR (MDRD) Non-Af 85, BUN/Creatinine Ratio 13.8, Glucose 129 H, Calcium 9.4 01/25/22 18:49: APTT 172.6 H* 01/26/22 03:24: WBC 6.1, RBC 4.80, Hgb 15.1, Hct 44.6, MCV 92.9, MCH 31.5, MCHC 33.9, Plt Count 135 L, MPV 11.4, Immature Gran % (Auto) 0.300, Neut % (Auto) 63.7, Lymph % (Auto) 22.5, [place] % (Auto) 9.4, Eos % (Auto) 3.4, Baso % (Auto) 0.7, Absolute Neuts (auto) 3.9, Nucleated RBC % 0 01/26/22 03:24: Sodium 139, Potassium 3.8, Chloride 104, Carbon Dioxide 28.0, Anion Gap 7, BUN 17, Creatinine 1.07, Est GFR (MDRD) Af Amer 89, Est GFR (MDRD) Non-Af 74, BUN/Creatinine Ratio 15.9, Glucose 145 H, Calcium 9.2 Rhythm: Sinus rhythm Cardiac Cath: CONCLUSIONS Ewiiaapaayp Multivessel CAD CHILDERS to LAD: patent Radial artery graft to OM1: patent SVG to RPDA: patent LCX: proximal stent: instent restenosis: 85% SVG stent: patent Collateral flow: right to left RECOMMENDATIONS Risk factor modification Medical therapy Referred for immediate PCI Case discussed / reviewed with Dr. Mai of Interventional Cardiology DESCRIPTION OF? PROCEDURE The patient arrived to the procedure lab. The risks and benefits of the procedure as well as a full description of our services here and current unavailability of surgical backup were fully explained to the patient and/or their significant other prior to the catheterization. The Timeout was completed, verifying the correct patient and procedure. The patient's procedural site was prepped and draped in the usual fashion. Local anesthetic was given subcutaneously to right groin region with Lidocaine 2%. Using a modified Seldinger technique, arterial access was obtained via the right femoral artery, a 4Fr sheath was inserted? Left Coronary Artery selective angiography was performed in multiple views using a 4 Fr. JL5 catheter. Right Coronary Artery selective angiography was then performed in multiple views using a 4 Fr. 3DRC catheter. Saphenous Vein graft to the OM 1 selective angiography was performed in multiple views using a 4 Fr. JR4 catheter. Left internal mammary artery graft to the LAD selective angiography was performed in multiple views using a 4 Fr. IM catheter. Saphenous Vein graft to the RPDA selective angiography was performed in multiple views using a 4 Fr. MPA 2 catheter.Contrast was injected through the sheath and the Right Iliac and Femoral artery were assessed for possible closure device.The arterial sheath was pulled and a Perclose closure device was deployed for hemostasis CORONARY ANGIOGRAPHY DOMINANCE:? Right Dominant LEFT MAIN: Previously placed stent is patent with mild luminal irregularities LEFT ANTERIOR DESCENDING ARTERY: OSTIAL LAD: is occluded MID LAD: to distal vessel: (small caliber vessel): filling from the CHILDERS graft wtih no angiographically significant disease distal to the graft attachment CIRCUMFLEX ARTERY: PROX CIRC: Previously placed stent has an instent 85 % restenosis MID CIRC: Mild luminal irregularities and diffuse eccentric 25% stenosis DISTAL CIRC: Mild luminal irregularities and diffuse eccentric 25% stenosis OM 1: (small caliber vesseld): Proximal - fills from the radial artery graft with diffuse 50 - 75% disease distal to the graft attachment RIGHT CORONARY ARTERY: PROX RCA: is occluded RT PDA: Proximal - fills from the SVG graft with no angiographically significant disease distal to the graft attachment GRAFTS: ?CHILDERS graft to the Mid LAD is patent Radial graft to the 1st OM is patent Saphenous Vein graft to the RPDA previously placed stent is patent COLLATERAL FLOW: Collateral flow from Right to Left COMPLICATIONS No Complications PCI: PCI Cardiac Cath Report PCI Report: 1.? Successful PCI of the proximal femoral left circumflex in-stent restenosis 80% with predilatation Using NC 3 x 15 mm Euphora balloon, followed by Buhler Cutting Balloon 3 x 10 mm, followed by placement of drug-eluting stent 3.5 x 18 mm Orsiro [place]/RAY Followed by postdilatation using 3.5 x 12 mm NC Euphora balloon and reduction of stenosis from 80% to 0% and maintenance of pre and post DIMITRI-3 flow. 2.? Successful PCI and stent of mid left circumflex diffuse coronary atherosclerosis of 80% with predilatation, followed by placement of drug-eluting stent 2.25 x 22 mm With RAY/Orsiro reduction of stenosis to 0% and maintenance of pre and post DIMITRI-3. 3.? Selective right common femoral artery angiography and placement of Perclose to close The right common femoral artery arteriotomy site. Consent; Risk and benefit of procedure explained in detail patient elected to proceed informed consent obtained. Preprocedure diagnosis 66-year-old patient with extensive cardiac history Patient underwent cardiac catheterization today by his primary restorative care technician Dr. Mark resendiz Patient had non-ST elevation [place] he had severe coronary artery atherosclerosis involving the [place] coronary arteries and had symptoms of shortness of breath on exertion Patient had severe three-vessel CAD with the CABG x3. Patient recently had cardiac catheterization at [facility].? The CHILDERS to LAD is patent as well as the radial graft to the OM1 was patent.? SVG graft was occluded and then he underwent evaluation today angiographic views were studied This patient has a prior balloon angioplasty of the proximal left circumflex stent now he is presenting with severe in-stent stenosis of around 80% and diffuse atherosclerosis of the mid to distal left circumflex artery. Echocardiographic evaluation LV systolic function preserved with no significant valvular abnormality.? With normal ejection fraction Interventional equipment used; 1.? 6 [place] 3.5 EBU guide catheter 2.? 0.014 run-through extra floppy 180 cm straight wire 3.? 0.035 150 cm standard J-wire 4.? 0.035 to 60 cm J exchange wire 5.? Emerge MR 2 x 15 mm balloon 6.? Emerge MR 2.5 x 15 mm balloon. 7.? NC Euphora 3 x 15 mm balloon 8.? NC Euphora 3.5 x 12 mm balloon 9.? Warfarin Cutting Balloon 3 x 10 mm 10.? Drug-eluting stent Orsiro/RAY 2.25 x 22 mm 11.? Drug-eluting stent Orsiro/[place] 2.5 x 18 mm Medication used in the Automotive Lube Technician #1 patient received 300 mg of Plavix 2.? Aspirin 325 mg 3.? Heparin a total of 10,000 unit ACT level acceptable Access; 6 [place]bour[place] sheath placed in the right common femoral artery Procedure in detail; Under fluoroscopic guidance we proceed with a 6 [place] 3.5 EBU guide catheter advanced sending aorta cannulated the left main without difficulty Following this angiographic view of the left coronary system obtained in KARL caudal spider view And then will proceed with run-through wire across the lesion and placed in the distal part of the left circumflex artery Then we followed by balloon dilatation using 2 x 15 followed by 2.5 x 15 to the mid to distal left circumflex, followed by placement of drug-eluting stent As explained 2.25 x 22 mm And then we proceed with balloon dilatation of the proximal left circumflex in- stent restenosis using a cutting balloon followed by placement of drug-eluting stent 3.5 x 18 mm followed by postdilated Successful percutaneous core intervention of the proximal and mid to distal left circumflex with predilatation followed by placement of drug-eluting stent at the specified Following this selective right common femoral artery angiography obtained and Perclose used successfully to close the right common femoral artery arteriotomy site And manual pressure was maintained while in the Automotive Lube Technician Conclusion and recommendation 1.? This patient has extensive cardiac history with severe three-vessel coronary artery disease and severe in-stent stenosis of the left circumflex 1.? To continue on DAPT Plavix 75 mg and low-dose aspirin 81 mg for 1 year 2.? Patient is scheduled for phase 1 cardiac rehab program at [facility] 3.? Patient will follow up with her primary restorative care technician Dr. Herman No complication in the Automotive Lube Technician Ciera Mai MD,[facility] Radiography Diagnostic Testing: Radiology Impression Chest X-Ray 01/25/22 12:20 IMPRESSION: No acute abnormality is seen. Electronically Signed: Robbin Alanis MD at 12:41 EDT , Physical Exam Const alert, oriented x3 and no apparent distress HEENT normocephalic, head/scalp atraumatic and hearing grossly normal bilaterally Eyes PERRL, EOMs intact bilaterally, conjunctivae normal and no scleral icterus Neck full ROM, supple and no JVD Carotids: bruit Positive for right Chest Chest: midline sternotomy incision Resp clear to auscultation bilaterally Cardio regular rate, regular rhythm, S1 normal heart sound and S2 normal heart sound GI normal to inspection, nondistended, normoactive bowel sounds Extremity Extremity Narrative: Right inguinal area: Pulses: 2+/4+: No bruit: No hematoma General Extremity: edema bilateral lower extremity Details: mild Skin no rashes or lesions noted Psych mental status grossly normal Assessment & Plan Assessment/Plan (1) Non-ST elevated myocardial infarction: PLAN: The patient presents with findings compatible with an acute non-ST segment elevation [place]. He has undergone subsequent evaluation with diagnostic cardiac catheterization. This led to the diagnosis of LCx in-stent restenosis. He has subsequently undergone LCx PTCA/stent. He will continue medical therapy as deemed appropriate. (2) CAD (coronary artery disease): QUALIFIERS: Coronary Disease-Associated Artery/Lesion type: bypass graft Ewi[place]p vs. transplanted heart: [place] heart Associated angina: angina presence unspecified Qualified Code(s): I25.810 - Atherosclerosis of coronary artery bypass graft(s) without angina pectoris PLAN: The patient has a history of extensive CAD. He has undergone PCI and CABG in the past. He has undergone further evaluation and care as noted. He will continue medical therapy. (3) S/P PTCA (percutaneous transluminal coronary angioplasty): PLAN: The patient's most recent cardiac catheterization report from [facility] was reviewed. At that time he did receive a PTCA/no stent. He will continue evaluation and care as noted. (4) S/P CABG x 3: PLAN: The patient has had remote CABG. The patient has undergone diagnostic cardiac catheterization. Based upon his cardiac catheterization his CHILDERS to the LAD was patent, his radial artery to the OM vessel is patent, and his SVG to the RCA was patent. He will continue medical therapy at this time. (5) PAD (peripheral artery disease): PLAN: The patient has a history of peripheral artery disease. He states he has an aortic aneurysm of 4 cm. Based upon his [facility] transthoracic echocardiogram report received this appears to be a thoracic ascending aortic aneurysm. (6) HLD (hyperlipidemia): PLAN: The patient has a history of hyperlipidemia. He will continue medical management. (7) Benign essential hypertension: PLAN: The patient's blood pressure will need to be monitored with adjustment of his medications as needed. (8) History of diabetes mellitus, type II: PLAN: The patient will continue evaluation care per internal medicine. Addt'l Comments The patient's case was discussed and reviewed with the patient, his spouse, Dr. Mai, and Dr. Castellanos. This note was generated using a voice recognition system and there may be incorrect words, spelling or punctuation that were not noted when reviewing the office note prior to saving. Procedure Criteria Type of Procedure Procedure Type: Elective Elective Risks - COVID COVID Risk Discussion: The surgeon/proceduralist and patient have discussed in detail the risk of exposure to and/or potential harm posed by the COVID-19 virus with having a surgery/procedure at this time versus the risk of delaying the surgery/procedure. It is not possible to know either the risk of delaying the surgery or procedure or chance of getting an infection with perfect accuracy, but a joint decision was made between the patient and the surgeon/proceduralist to proceed at this time with the scheduled surgery/procedure as indicated on the consent form.
--- NOTE | 2022-01-26 12:55 | CASEMGMT ---
RN CM Face to Face with patient for initial transition planning/care coordination assessment. RN CM introduced self and role at [facility]. Patient lying in bed, alert and oriented, at bedside. Patient willing to participate in assessment and is able to answer all questions appropriately. Care providers, pharmacy, and demographics verified. Patient wishes to discharge home, denies need for home health at this time. Patient states he has no further needs or concerns at this time. CM to follow for discharge planning needs that may arise. PCP: Zelda Specialists: Ana cardiolgist [facility]; Dwight, cardiac surgeon, [facility] Preferred Pharmacy: [facility] [place]: [place], [place] Prescription Benefit: yes Living Will/HPOA: none LNOK: Living Arrangements: Patient lives in a single story duplex with 1 step to enter. Patient states he is independent at home. Transportation: self, DME/HHC: Patient denies DME or previous HHC Disposition Plan: Patient to discharge home with family support and follow-up plans in place. Sophia LAMAN, RN, CM
--- NOTE | 2022-01-26 14:31 | CRPHASE1_ITS ---
Patient Communication PHII Cardiac Rehab Discussed with Patient:: Yes Guide to Cardiac Rehab Given to Patient:: Yes Cardiac Rehab Facility Choice List Given to Patient:: Yes Choice Program [facility] PHII:: Communication Given to CR, Refer to [facility] Artist Mannequin Coloring:: Ciera Mai - Intervention [facility] [place] Phase II Cardiac Rehab:: Yes - TO OCCUR AFTER DISCHARGE Sessions:: 36 sessions - 3 days/wk, 12 weeks Cardiac Rehabilitation Info Cardiac Rehabilitation Program Information: Cardiac Rehabilitation is important for patients like you who are recovering from a heart problem. Cardiac rehabilitation programs are recognized as integral to the continued care of the patient with coronary heart disease. The cardiac rehabilitation program is designed to optimize a patient's physical, psychological, and social functioning. Health lead caregiver work in cardiac rehabilitation programs and assist you with getting the treatments you need to get stronger and healthier - like exercise, healthy eating habits, and medications. Cardiac rehabilitation has been show to help people with heart problems live longer and have better life enjoyment than people who do not go to cardiac rehabilitation. Please contact the Cardiac Rehabilitation Program at [facility] at in two weeks if you have not heard from them.
--- NOTE | 2022-01-26 14:38 | CRPH1.INSTRU ---
General Education CAD and cardiac anatomy and function:: Needs reinforcement Explanation of diagnoses and procedures:: Needs reinforcement Sign/Symptoms of MS:: Needs reinforcement Antiplatelet therapy: Needs reinforcement Proper use of NTG-SL: Needs reinforcement Emergency procedures and activation of EMS: Needs reinforcement Compliance of all prescribed medications: Needs reinforcement Dyslipidemia Patient Dyslipidemia Risk Factors Are:: Total Cholesterol - 221, Triglycerides - 221, HDL - 31, LDL - 146 Recommendations Include:: Lipid profile provided, Reviewed NCEP/ATP guidelines, Therapeutic Lifestyle Change dietary guidelines Dyslipidemia Response Code:: Needs reinforcement Overweight/Obesity Patient Overweight/Obesity Risk Factors Are:: Obesity - > or = 30 Recommendations Include:: Weight loss of 5-10%, Reduced calorie diet, Exercise 5-7 times/week Overweight/Obesity:: Needs reinforcement Hypertension Recommendations Include:: BP <130/80 if diabetic, DASH dietary guidelines, Decrease/maintain normal body weight, Moderation of ETOH Hypertension:: Needs reinforcement Heart Disease Patient Heart Disease Risk Factors Are:: Previous cardiac event Recommendations Include:: Educated family members of their risk, Educated family members of importance of prevention of heart disease Heart Disease Response Code:: Needs reinforcement Diabetes Patient Diabetes Risk Factors Are:: Elevated blood sugars Recommendations Include:: Maintain fasting blood sugars 70-110 md/dL, Maintain HgbA1c of 6% or less, Monitor blood sugar as prescribed, Diabetic dietary guidelines, Decrease/maintain body weight Diabetes:: Needs reinforcement Metabolic Syndrome Patient Metabolic Syndrome Risk Factors Are [3 of 5]:: High triglyceride >150, Hypertension, Low HDL <40 [male] or < 50 [female] Recommendations Include:: Does not meet criteria, Reinforce compliance to risk factor modifications, Patient is diabetic, Encouraged follow-up with Primary Care Physician Metabolic Syndrome Response Code:: Needs reinforcement Sedentary Patient Sedentary Risk Factors Are:: Lack of regular exercise Recommendations Include:: Aerobic exercise 5-7 times/week for 20-30 minutes continuously, Discussed home walking program, Monitored Outpatient Cardiac Rehab Sedentary Response Code:: Needs reinforcement
--- NOTE | 2022-01-26 15:03 | NURSING ---
walked pt in hallway. heart cath site frandy
[2022-01-26 18:05] LABS: Bedside Glucose 116 mg/dL (74-106)
[2022-01-26] MEDS: Atorvastatin Calcium 40 MG Tablet PO (22:19)
[2022-01-26 23:20] LABS: Bedside Glucose 97 mg/dL (74-106)
[2022-01-27 03:00] VITALS: PULSE 68
[2022-01-27 03:55] VITALS: BP 131/78; PULSE 73; RESP 18; TEMP 36.6; O2SAT 97
[2022-01-27 05:55] LABS: Hematocrit 43.7 % (40-54); Hemoglobin 14.9 g/dL (13.0-16.5); Mean Corp Hgb Conc 34.1 g/dL (32-36); Mean Corpuscular Hgb 31.4 pg (27.0-32.0); Mean Corpuscular Volume 92.2 fL (80-94); Mean Platelet Vol. 11.1 fl (6.2-12.0); Platelet Count 127 K/mm3 (150-450); RBC Distribution Width CV 12.7 % (11.6-14.6); RBC Distribution Width SD 43.4 fl (35.1-43.9); Red Blood Count 4.74 M/mm3 (4.6-6.2); White Blood Count 6.6 K/mm3 (4.4-11.0)
[2022-01-27 06:28] LABS: ALB/GLOB Ratio 1.1 RATIO (0.9-2.4); AST(SGOT) 22 U/L (15-37); Alanine Aminotransfer ALT/SGPT 41 U/L (16-61); Albumin, Serum 3.3 g/dL (3.2-5.0); Alkaline Phosphatase 102 U/L (45-117); Anion Gap 5 (5-15); BUN 19 mg/dL (7-18); BUN/Creat Ratio 17.1 RATIO (10-20); Calcium,Total 9.6 mg/dL (8.5-10.1); Chloride 102 mmol/L (98-107); Creatinine, Serum 1.11 mg/dL (0.70-1.30); EST Glomerular Filtration Rate 71 mL/min (>60); Est Glom Filt Rate - Afr Amer 85 mL/min (>60); Globulin 2.9 g/dL (2.2-4.2); Glucose 158 mg/dL (74-106); Potassium 4.2 mmol/L (3.5-5.1); Protein, Total 6.2 g/dL (6.4-8.2); Sodium Level 136 mmol/L (136-145)
[2022-01-27 07:00] VITALS: PULSE 64
[2022-01-27 07:47] VITALS: O2SAT 93
[2022-01-27] MEDS: Insulin Lispro 100 UNIT/ML INSULN.PEN 20 UNIT SC (08:11)
[2022-01-27] MEDS: Insulin Lispro 100 UNIT/ML INSULN.PEN SC (08:12)
[2022-01-27] MEDS: Aspirin E.C. 81 MG Tablet PO (08:14)
--- NOTE | 2022-01-27 09:06 | PN.CARD_ITS ---
Subjective Subjective The patient aware. States overall he feels better with respect to his chest and especially with respect to his breathing. Objective Data Vital Signs: Vital Signs Temp Pulse Resp BP Pulse Ox O2 Del Method 97.9 F 64 18 131/78 H 93 Room Air 01/27/22 03:55 01/27/22 07:00 01/27/22 03:55 01/27/22 03:55 01/27/22 07:47 01/27/22 07:47 Oxygen Delivery Method Room Air Weight: 249 lb Body Mass Index (BMI) 31.1 Intake & Output: Intake and Output for Last 24 Hours 01/25/22 01/26/22 01/27/22 23:59 23:59 23:59 Intake Total 298 / 298 1472.4 / 1472.4 Output Total 550 / 550 Balance 298 / 298 922.4 / 922.4 Lab / Micro Data Result Diagrams: 01/27/22 05:16 01/27/22 05:16 Labs: Laboratory Results - last 24 hr 01/26/22 11:02: POC Glucose 180 H 01/26/22 17:30: POC Glucose 116 H 01/26/22 22:21: POC Glucose 97 01/27/22 05:16: WBC 6.6, RBC 4.74, Hgb 14.9, Hct 43.7, MCV 92.2, MCH 31.4, MCHC 34.1, RDW Std Deviation 43.4, RDW Coeff of Destiny 12.7, Plt Count 127 L, MPV 11.1 01/27/22 05:16: Sodium 136, Potassium 4.2, Chloride 102, Carbon Dioxide 29.0, Anion Gap 5, BUN 19 H, Creatinine 1.11, Estim Creat Clear Calc 79.30, Est GFR (MDRD) Af Amer 85, Est GFR (MDRD) Non-Af 71, BUN/Creatinine Ratio 17.1, Glucose 158 H, Calcium 9.6, Total Bilirubin 0.70, AST 22, ALT 41, Alkaline Phosphatase 102, Total Protein 6.2 L, Albumin 3.3, Globulin 2.9, Albumin/Globulin Ratio 1.1 Cardiology Labs/Tests 01/27/22 05:16: WBC 6.6, RBC 4.74, Hgb 14.9, Hct 43.7, MCV 92.2, MCH 31.4, MCHC 34.1, Plt Count 127 L, MPV 11.1 01/27/22 05:16: Sodium 136, Potassium 4.2, Chloride 102, Carbon Dioxide 29.0, Anion Gap 5, BUN 19 H, Creatinine 1.11, Est GFR (MDRD) Af Amer 85, Est GFR (MDRD) Non-Af 71, BUN/Creatinine Ratio 17.1, Glucose 158 H, Calcium 9.6, Total Bilirubin 0.70 Rhythm: Sinus rhythm; episodes of second-degree AV block Mobitz 1 Physical Exam Const alert, oriented x3 and no apparent distress Orientation / Consciousness: awake HEENT normocephalic, head/scalp atraumatic and hearing grossly normal bilaterally Eyes PERRL, EOMs intact bilaterally, conjunctivae normal and no scleral icterus Neck full ROM, supple and no JVD Carotids: bruit Positive for right Chest Chest: midline sternotomy incision Resp clear to auscultation bilaterally Cardio regular rate, regular rhythm, S1 normal heart sound and S2 normal heart sound GI normal to inspection, nondistended, normoactive bowel sounds Extremity Extremity Narrative: Right inguinal area: Pulses: 2+/4+: No bruit: No hematoma General Extremity: edema bilateral lower extremity Details: mild Skin no rashes or lesions noted Psych mental status grossly normal Assessment & Plan Assessment/Plan (1) Non-ST elevated myocardial infarction: PLAN: The patient presents with findings compatible with an acute non-ST segment elevation SC. He has undergone subsequent evaluation with diagnostic cardiac catheterization. This led to the diagnosis of LCx in-stent restenosis. He has subsequently undergone LCx PTCA/stent. He will continue medical therapy as deemed appropriate. (2) CAD (coronary artery disease): QUALIFIERS: Coronary Disease-Associated Artery/Lesion type: bypass graft [place] vs. transplanted heart: [place] heart Associated angina: angina presence unspecified Qualified Code(s): I25.810 - Atherosclerosis of coronary artery bypass graft(s) without angina pectoris PLAN: The patient has a history of extensive CAD. He has undergone PCI and CABG in the past. He has undergone further evaluation and care as noted. He will continue medical therapy. (3) S/P PTCA (percutaneous transluminal coronary angioplasty): PLAN: The patient's most recent cardiac catheterization report from [facility] was reviewed. At that time he did receive a PTCA/no stent. He will continue evaluation and care as noted. (4) S/P CABG x 3: PLAN: The patient has had remote CABG. The patient has undergone diagnostic cardiac catheterization. Based upon his cardiac catheterization his CHILDERS to the LAD was patent, his radial artery to the OM vessel is patent, and his SVG to the RCA was patent. He will continue medical therapy at this time. (5) Conduction disorder of the heart: PLAN: The patient has been noted to have, occasionally when he is resting and/or sleeping, episodes of second-degree AV block Mobitz 1. He states that this was reported during his stay at [facility] approximately 1 year ago. He states since that time he has been evaluated by his primary care physician and/or [facility] motor setter with an outpatient monitor that demonstrated similar type findings. He states in the past he has been told that he has not required a permanent pacemaker. At the present time he appears to be symptomatically and hemodynamically stable. He will need to follow-up with his primary motor setter for further evaluation care as deemed appropriate. (6) PAD (peripheral artery disease): PLAN: The patient has a history of peripheral artery disease. He states he has an aortic aneurysm of 4 cm. Based upon his [facility] transthoracic echocardiogram report received this appears to be a thoracic ascending aortic aneurysm. (7) HLD (hyperlipidemia): PLAN: The patient has a history of hyperlipidemia. He will continue medical management. (8) Benign essential hypertension: PLAN: The patient's blood pressure will need to be monitored with adjustment of his medications as needed. (9) History of diabetes mellitus, type II: PLAN: The patient will continue evaluation care per internal medicine. Addt'l Comments Overall, the present time, the patient appears to be symptomatically and hemodynamically stable. He will continue medical therapy. It does not appear he requires additional cardiovascular diagnostic studi es/intervention at this time. He will need to follow-up with his primary care physician and his primary [facility] motor setter for continued outpatient evaluation and care of his noncardiac and cardiac conditions. The above has been discussed with the patient. He is agreeable to this approach. This note was generated using a voice recognition system and there may be incorrect words, spelling or punctuation that were not noted when reviewing the office note prior to saving. Procedure Criteria Type of Procedure Procedure Type: Elective Elective Risks - COVID COVID Risk Discussion: The surgeon/proceduralist and patient have discussed in detail the risk of expo sure to and/or potential harm posed by the COVID-19 virus with having a surgery/procedure at this time versus the risk of delaying the surgery/procedure. It is not possible to know either the risk of delaying the surgery or procedure or chance of getting an infection with perfect accuracy, but a joint decision was made between the patient and the surgeon/proceduralist to proceed at this time with the scheduled surgery/procedure as indicated on the consent form.
--- NOTE | 2022-01-27 09:45 | DCINST_ITS ---
Discharge Instructions Diet Discharge Diet: Low fat / Low cholesterol and 1800 Calorie Control Diet Activity May shower in (days): 1 Dressing / Incision Call your doctor if your incision/area has: Continuous Slow Oozing, Sudden Increased Bleeding, Increased Pain/ Swelling, Increased Redness, Foul Smelling Discharge and Swelling at the incision site Call your doctor if you observe: Shortness of breath, Chest pain and Increased palpitations (irregular heartbeat) Remove Dressing in: 1 day Follow Up Care Test Results: Test results from this visit will be discussed in further detail at your follow- up appointment, if applicable. Discharge Plan Admission Admit Date/Time: 01/25/22 12:54 Primary Reason for Your Visit: NSTEMI Attending Provider: Baldev Castellanos Primary Care Provider: Yeimi Ndiaye Consulting Providers: Simon Herman Discharge Orders/Prescriptions Prescriptions: New carvedilol 12.5 mg Tablet 12.5 mg PO BID 30 Days Qty: 60 0RF amlodipine 5 mg Tablet 5 mg PO DAILY 30 Days Qty: 30 0RF aspirin 81 mg Tablet,Delayed Release (Dr/Ec) 81 mg PO DAILY@0800 Qty: 0 0RF Continued insulin aspart U-100 [Novolog Flexpen U-100 Insulin] 100 unit/mL (3 mL) insulin pen 20 unit SC TID gabapentin 600 MG tablet 600 mg PO DAILY Label Comments: neuropathy atorvastatin 40 MG tablet 40 mg PO QHS clopidogrel 75 MG tablet 75 mg PO DAILY lisinopril 5 MG tablet 10 mg PO DAILY insulin glargine 100 UNIT/ML insulin pen 50 unit SQ BID oxycodone-acetaminophen 1 TABLET tablet 1 tab PO Q8H PRN PRN (Reason: Pain) Label Comments: Fibromyalgia magnesium oxide 400 mg magnesium Tablet 400 mg PO BID PRN (Reason: supplement) pantoprazole [Protonix] 40 mg Tablet,Delayed Release (Dr/Ec) 40 mg PO DAILY fexofenadine 180 mg Tablet 180 mg PO DAILY lidocaine [Lidoderm] 5 % Adhesive Patch,Medicated 1 patch TOPICAL DAILY PRN (Reason: Back Pain) Trulance 3 mg Tablet 3 mg PO DAILY PRN (Reason: gastroparesis) oxycodone-acetaminophen [Percocet] 5-325 mg tablet 1 tab PO Q4H PRN (Reason: pain) 5 Days Qty: 20 0RF Discontinued aspirin 81 MG tablet,chewable 325 mg PO DAILY@0800 carvedilol [Coreg] 6.25 mg Tablet 6.25 mg PO BID Referrals / Follow Up: Yeimi Ndiaye DO [Primary Care Provider] - NOT,DEFINED [NON-STAFF] - Within 2 Weeks (Follow up with Dr. Perez in 2 weeks.) Disposition Disposition (needs filled in before D/C Order can be placed): Home, Self Care
--- NOTE | 2022-01-27 09:45 | EKG12_ITS ---
Test Reason : series Blood Pressure : / mmHG Vent. Rate : 066 BPM Atrial Rate : 066 BPM P-R Int : 268 ms QRS Dur : 136 ms QT Int : 472 ms P-R-T Axes : 058 -58 098 degrees QTc Int : 494 ms Sinus rhythm with 1st degree A-V block Right bundle branch block Left anterior fascicular block Bifascicular block Confirmed by JERMEY LECHUGA, MARCIAL ([id number]), website/blog editor AISHA ROSS ([id number]) on 02/02/2022 12:57:58 PM Referred By: Confirmed By:MARCIAL LUNA MD
--- NOTE | 2022-01-27 09:56 | DS.PCM_ITS ---
Documented by User: SHARMAINE Harris 01/27/22 10:03 Providers Date of Admission: 01/25/22 Date of Discharge: 01/27/22 Primary Care Physician: Yeimi Ndiaye DO Consultations 01/25/22 14:02 Consult: Cardiology Routine Consulting Provider: Simon Herman Reason for Consult: NSTEMI EMERGENT Consult: No MD Notified: Yes Date Notified: 01/25/22 Time Notified: 13:36 Method of Notification: ED Physician Initiated Reason For Visit: NON-STEMI Diagnosis Discharge Diagnosis (1) Non-ST elevated myocardial infarction: Status: Acute Code(s): I21.4 - Non-ST elevation (NSTEMI) myocardial infarction (2) CAD (coronary artery disease): Status: Chronic Code(s): I25.10 - Atherosclerotic heart disease of [place] coronary artery without angina pectoris Qualifiers: Associated angina: angina presence unspecified Coronary Disease- Associated Artery/Lesion type: bypass graft [place] vs. transplanted heart: [place] heart Qualified Code(s): I25.810 - Atherosclerosis of coronary artery bypass graft(s) without angina pectoris (3) S/P PTCA (percutaneous transluminal coronary angioplasty): Status: Acute Code(s): Z98.61 - Coronary angioplasty status (4) S/P CABG x 3: Status: Chronic Code(s): Z95.1 - Presence of aortocoronary bypass graft (5) Conduction disorder of the heart: Status: Acute Code(s): I45.9 - Conduction disorder, unspecified (6) PAD (peripheral artery disease): Status: Acute Code(s): I73.9 - Peripheral vascular disease, unspecified (7) HLD (hyperlipidemia): Status: Chronic Code(s): E78.5 - Hyperlipidemia, unspecified (8) Benign essential hypertension: Status: Chronic Code(s): I10 - Essential (primary) hypertension (9) History of diabetes mellitus, type II: Status: Acute Code(s): Z86.39 - Personal history of other endocrine, nutritional and metabolic disease Medications at Discharge Home Medications gabapentin 600 mg tablet 600 mg PO DAILY pain 05/31/14 atorvastatin 40 mg tablet 40 mg PO QHS cholestrol 02/25/17 clopidogrel 75 mg tablet 75 mg PO DAILY blood thinner 02/25/17 insulin glargine 100 unit/mL (3 mL) subcutaneous pen 50 unit SQ BID DM 02/25/17 lisinopril 5 mg tablet 10 mg PO DAILY BP 02/25/17 oxycodone-acetaminophen 5 mg-325 mg tablet 1 tab PO Q8H PRN PRN Pain 02/25/17 insulin aspart U-100 100 unit/mL (3 mL) subcutaneous pen (Novolog Flexpen U-100 Insulin aspart) 20 unit subcut TID DM 11/29/19 fexofenadine 180 mg tablet 180 mg PO DAILY allergies 10/28/21 lidocaine 5 % topical patch (Lidoderm) 1 patch topical DAILY PRN Back Pain 10/28/21 magnesium oxide 400 mg PO BID PRN supplement 10/28/21 pantoprazole 40 mg tablet,delayed release (Protonix) 40 mg PO DAILY GERD 10/28/21 plecanatide 3 mg tablet (Trulance) 3 mg PO DAILY PRN gastroparesis 10/28/21 oxycodone-acetaminophen 5 mg-325 mg tablet (Percocet) 1 tab PO Q4H PRN pain 5 days #20 tabs 11/02/21 amlodipine 5 mg tablet 5 mg PO DAILY 30 days #30 tabs 01/27/22 aspirin 81 mg tablet,delayed release 81 mg PO DAILY@0800 #0 tabs 01/27/22 carvedilol 12.5 mg tablet 12.5 mg PO BID 30 days #60 tabs 01/27/22 Hospital Course Operations None Procedures 2-D Echocardiogram and Cardiac catheterization Summary of Care Provided Minutes Spent on Discharge: 35 Hospital Course: Patient is a 66-year-old male who presented with chest pain on 01/25/2022. Patient states that he had an episode similar approximately 2 weeks ago which was relieved by 1 nitro. Patient states that he is was scheduled for stress test this week and follows with [facility] cardiology [facility]. Patient states that he also had dyspnea with exertion and fatigue with the chest pain. Patient has a history of CAD and CABG and stents. Patient underwent cardiac catheterization on 01/26/2022 and received PCI to the left circumflex secondary to in-stent stenosis. Patient's right femoral site is dry and intact. Patient tolerated PCI well and has had no complications. Patient will be discharged home with instructions to follow-up with his primary cardiology. Discharge instructions and summary will be sent to contract agent. Physical Exam Const alert, oriented x3 and no apparent distress HEENT normocephalic and head/scalp atraumatic Eyes conjunctivae normal and no scleral icterus Neck no lymphadenopathy and supple General: trachea midline Resp normal respiratory effort, normal air movement and clear to auscultation bilaterally Cardio regular rate, regular rhythm, S1 normal heart sound, S2 normal heart sound and peripheral pulses 2+ throughout GI normal to inspection, nondistended, normoactive bowel sounds, soft to palpation and non-tender Extremity normal capillary refill Skin skin turgor normal Skin Narrative: Dressing to right femoral groin dry and intact Neuro moves all extremities, no focal motor deficits and no sensory deficits noted Psych affect normal, denies homicidal ideation and denies suicidal ideation Appearance: appropriate Weight / BMI Weight Weight: 249 lb Body Mass Index (BMI) 31.1 ABG / Lab / Microbiology Data Result Diagrams: 01/27/22 05:16 01/27/22 05:16 Laboratory: Laboratory Results - last 24 hr 01/26/22 11:02: POC Glucose 180 H 01/26/22 17:30: POC Glucose 116 H 01/26/22 22:21: POC Glucose 97 01/27/22 05:16: WBC 6.6, RBC 4.74, Hgb 14.9, Hct 43.7, MCV 92.2, MCH 31.4, MCHC 34.1, RDW Std Deviation 43.4, RDW Coeff of Destiny 12.7, Plt Count 127 L, MPV 11.1 01/27/22 05:16: Sodium 136, Potassium 4.2, Chloride 102, Carbon Dioxide 29.0, Anion Gap 5, BUN 19 H, Creatinine 1.11, Estim Creat Clear Calc 79.30, Est GFR (MDRD) Af Amer 85, Est GFR (MDRD) Non-Af 71, BUN/Creatinine Ratio 17.1, Glucose 158 H, Calcium 9.6, Total Bilirubin 0.70, AST 22, ALT 41, Alkaline Phosphatase 102, Total Protein 6.2 L, Albumin 3.3, Globulin 2.9, Albumin/Globulin Ratio 1.1 D/C Instructions Discharge Diet: Low fat / Low cholesterol and 1800 Calorie Control Diet May shower in (days): 1 Call your doctor if your incision/area has: Continuous Slow Oozing, Sudden Incre ased Bleeding, Increased Pain/ Swelling, Increased Redness, Foul Smelling Discharge and Swelling at the incision site Call your doctor if you observe: Shortness of breath, Chest pain and Increased palpitations (irregular heartbeat) Meaningful Use Info Meaningful Use Diagnoses (Choose all that apply): AMI AMI/Post PCI/Angioplasty Aspirin given w/in 24hrs of arrival?: Yes ASA at discharge?: Yes Antiplatelet Therapy at Discharge:: Yes Statins at discharge?: Yes Boni/ARB at discharge?: Yes Beta Randall at discharge?: Yes Done w/ Acute NC measure.: Yes Discharge Plan Admission Admit Date/Time: 01/25/22 12:54 Primary Reason for Your Visit: NSTEMI Attending Provider: Baldev Castellanos Primary Care Provider: eYimi Ndiaye Consulting Providers: Simon Herman Discharge Orders/Prescriptions Prescriptions: New carvedilol 12.5 mg Tablet 12.5 mg PO BID 30 Days Qty: 60 0RF amlodipine 5 mg Tablet 5 mg PO DAILY 30 Days Qty: 30 0RF aspirin 81 mg Tablet,Delayed Release (Dr/Ec) 81 mg PO DAILY@0800 Qty: 0 0RF Continued insulin aspart U-100 [Novolog Flexpen U-100 Insulin] 100 unit/mL (3 mL) insulin pen 20 unit SC TID gabapentin 600 MG tablet 600 mg PO DAILY Label Comments: neuropathy atorvastatin 40 MG tablet 40 mg PO QHS clopidogrel 75 MG tablet 75 mg PO DAILY lisinopril 5 MG tablet 10 mg PO DAILY insulin glargine 100 UNIT/ML insulin pen 50 unit SQ BID oxycodone-acetaminophen 1 TABLET tablet 1 tab PO Q8H PRN PRN (Reason: Pain) Label Comments: Fibromyalgia magnesium oxide 400 mg magnesium Tablet 400 mg PO BID PRN (Reason: supplement) pantoprazole [Protonix] 40 mg Tablet,Delayed Release (Dr/Ec) 40 mg PO DAILY fexofenadine 180 mg Tablet 180 mg PO DAILY lidocaine [Lidoderm] 5 % Adhesive Patch,Medicated 1 patch TOPICAL DAILY PRN (Reason: Back Pain) Trulance 3 mg Tablet 3 mg PO DAILY PRN (Reason: gastroparesis) oxycodone-acetaminophen [Percocet] 5-325 mg tablet 1 tab PO Q4H PRN (Reason: pain) 5 Days Qty: 20 0RF Discontinued aspirin 81 MG tablet,chewable 325 mg PO DAILY@0800 carvedilol [Coreg] 6.25 mg Tablet 6.25 mg PO BID Referrals / Follow Up: Yeimi Ndiaye DO [Primary Care Provider] - NOT,DEFINED [NON-STAFF] - Within 2 Weeks (Follow up with Dr. Perez in 2 weeks.) Disposition Disposition (needs filled in before D/C Order can be placed): Home, Self Care Documented by User: Dr. Baldev Castellanos MD 01/27/22 10:21 Providers Date of Admission: 01/25/22 Reason For Visit: NON-STEMI Diagnosis Discharge Diagnosis (1) Non-ST elevated myocardial infarction: Status: Acute Code(s): I21.4 - Non-ST elevation (NSTEMI) myocardial infarction (2) CAD (coronary artery disease): Status: Chronic Code(s): I25.10 - Atherosclerotic heart disease of [place] coronary artery without angina pectoris Qualifiers: Associated angina: angina presence unspecified Coronary Disease- Associated Artery/Lesion type: bypass graft [place] vs. transplanted heart: [place] heart Qualified Code(s): I25.810 - Atherosclerosis of coronary artery bypass graft(s) without angina pectoris (3) S/P PTCA (percutaneous transluminal coronary angioplasty): Status: Acute Code(s): Z98.61 - Coronary angioplasty status (4) S/P CABG x 3: Status: Chronic Code(s): Z95.1 - Presence of aortocoronary bypass graft (5) Conduction disorder of the heart: Status: Acute Code(s): I45.9 - Conduction disorder, unspecified (6) PAD (peripheral artery disease): Status: Acute Code(s): I73.9 - Peripheral vascular disease, unspecified (7) HLD (hyperlipidemia): Status: Chronic Code(s): E78.5 - Hyperlipidemia, unspecified (8) Benign essential hypertension: Status: Chronic Code(s): I10 - Essential (primary) hypertension (9) History of diabetes mellitus, type II: Status: Acute Code(s): Z86.39 - Personal history of other endocrine, nutritional and metabolic disease Medications at Discharge Home Medications gabapentin 600 mg tablet 600 mg PO DAILY pain 05/31/14 atorvastatin 40 mg tablet 40 mg PO QHS cholestrol 02/25/17 clopidogrel 75 mg tablet 75 mg PO DAILY blood thinner 02/25/17 insulin glargine 100 unit/mL (3 mL) subcutaneous pen 50 unit SQ BID DM 02/25/17 lisinopril 5 mg tablet 10 mg PO DAILY BP 02/25/17 oxycodone-acetaminophen 5 mg-325 mg tablet 1 tab PO Q8H PRN PRN Pain 02/25/17 insulin aspart U-100 100 unit/mL (3 mL) subcutaneous pen (Novolog Flexpen U-100 Insulin aspart) 20 unit subcut TID DM 11/29/19 fexofenadine 180 mg tablet 180 mg PO DAILY allergies 10/28/21 lidocaine 5 % topical patch (Lidoderm) 1 patch topical DAILY PRN Back Pain 10/28/21 magnesium oxide 400 mg PO BID PRN supplement 10/28/21 pantoprazole 40 mg tablet,delayed release (Protonix) 40 mg PO DAILY GERD 10/28/21 plecanatide 3 mg tablet (Trulance) 3 mg PO DAILY PRN gastroparesis 10/28/21 oxycodone-acetaminophen 5 mg-325 mg tablet (Percocet) 1 tab PO Q4H PRN pain 5 days #20 tabs 11/02/21 amlodipine 5 mg tablet 5 mg PO DAILY 30 days #30 tabs 01/27/22 aspirin 81 mg tablet,delayed release 81 mg PO DAILY@0800 #0 tabs 01/27/22 carvedilol 12.5 mg tablet 12.5 mg PO BID 30 days #60 tabs 01/27/22 Hospital Course Summary of Care Provided Minutes Spent on Discharge: 43 ABG / Lab / Microbiology Data Result Diagrams: 01/27/22 05:16 01/27/22 05:16 Discharge Plan Admission Admit Date/Time: 01/25/22 12:54 Primary Reason for Your Visit: NSTEMI Attending Provider: Baldev Castellanos Primary Care Provider: Yeimi Ndiaye Consulting Providers: Simon Herman Discharge Orders/Prescriptions Prescriptions: New carvedilol 12.5 mg Tablet 12.5 mg PO BID 30 Days Qty: 60 0RF amlodipine 5 mg Tablet 5 mg PO DAILY 30 Days Qty: 30 0RF aspirin 81 mg Tablet,Delayed Release (Dr/Ec) 81 mg PO DAILY@0800 Qty: 0 0RF Continued insulin aspart U-100 [Novolog Flexpen U-100 Insulin] 100 unit/mL (3 mL) insulin pen 20 unit SC TID gabapentin 600 MG tablet 600 mg PO DAILY Label Comments: neuropathy atorvastatin 40 MG tablet 40 mg PO QHS clopidogrel 75 MG tablet 75 mg PO DAILY lisinopril 5 MG tablet 10 mg PO DAILY insulin glargine 100 UNIT/ML insulin pen 50 unit SQ BID oxycodone-acetaminophen 1 TABLET tablet 1 tab PO Q8H PRN PRN (Reason: Pain) Label Comments: Fibromyalgia magnesium oxide 400 mg magnesium Tablet 400 mg PO BID PRN (Reason: supplement) pantoprazole [Protonix] 40 mg Tablet,Delayed Release (Dr/Ec) 40 mg PO DAILY fexofenadine 180 mg Tablet 180 mg PO DAILY lidocaine [Lidoderm] 5 % Adhesive Patch,Medicated 1 patch TOPICAL DAILY PRN (Reason: Back Pain) Trulance 3 mg Tablet 3 mg PO DAILY PRN (Reason: gastroparesis) oxycodone-acetaminophen [Percocet] 5-325 mg tablet 1 tab PO Q4H PRN (Reason: pain) 5 Days Qty: 20 0RF Discontinued aspirin 81 MG tablet,chewable 325 mg PO DAILY@0800 carvedilol [Coreg] 6.25 mg Tablet 6.25 mg PO BID Referrals / Follow Up: Yeimi Ndiaye DO [Primary Care Provider] - NOT,DEFINED [NON-STAFF] - Within 2 Weeks (Follow up with Dr. Perez in 2 weeks.) Disposition Disposition (needs filled in before D/C Order can be placed): Home, Self Care Charges/Coding Addendum Addendum: Dr. Castellanos I personally examined the patient and reviewed the chart. I agree with the above.? 66-year-old male with a history of coronary artery disease status post CABG as well as multiple stents presents with chest pain.? He had an episode of chest pain about 2 weeks ago which was relieved with nitro.? He went to see his primary contract agent who had set up an outpatient stress test which was scheduled for next however with the episode of tightness as well as dyspnea with exertion and easy fatigability he elected to be evaluated at the hospital.? His initial troponin was elevated 192 and then to 196 and now is back down to 187.? Cardiology was consulted and recommended to heparin drip with a cardiac cath in the morning.? Clinical time spent in all aspects of patient care: 35 minutes 01/26/2022:?Doing well, underwent heart cath today which did not necessitate intervention with a stent in the left circumflex secondary to in-stent restenosis as well as a mid circumflex stent.? We will continue you with his dual antiplatelet medications.? We will also adjust his blood pressure medications and monitor overnight.? Clinical time spent in all aspects of patient care: 18 minutes 01/27/2022: Feels great today, denies any chest pain. He was continue on on both his aspirin and his Plavix we did think his his his Coreg to 12-1/2 mg p.o. twice daily up from the 6.25 mg twice daily that he was on prior. Also he was started on Norvasc 5 mg p.o. daily. I discussed with him the plan for discharge today he expressed understanding of the risk and benefits of going home and would like to go home today. He will need to follow-up with his PCP in 3 to 5 days as well as with cardiology within a month. I did discussed extensively with him lifestyle modifications as well as exercising for weight loss. He will undergo cardiac rehab. A total of 43 minutes was spent in clinical care and discharge planning with over half of the time spent by myself. Visit Charges Inpatient E&M: 23138 Disch Hosp
[2022-01-27 10:25] VITALS: BP 149/74; PULSE 68; RESP 18; TEMP 36.6; O2SAT 98
--- NOTE | 2022-01-27 11:08 | PHA.DC.MC ---
Pharmacy Service has performed discharge medication reconciliation and counseling for this patient. 1. AMLODIPINE 5MG PO DAILY The patient's discharge medication list was reviewed for discrepancies and discrepancies were resolved. Home Medications gabapentin 600 mg tablet 600 mg PO DAILY pain 05/31/14 atorvastatin 40 mg tablet 40 mg PO QHS cholestrol 02/25/17 clopidogrel 75 mg tablet 75 mg PO DAILY blood thinner 02/25/17 insulin glargine 100 unit/mL (3 mL) subcutaneous pen 50 unit SQ BID DM 02/25/17 lisinopril 5 mg tablet 10 mg PO DAILY BP 02/25/17 oxycodone-acetaminophen 5 mg-325 mg tablet 1 tab PO Q8H PRN PRN Pain 02/25/17 insulin aspart U-100 100 unit/mL (3 mL) subcutaneous pen (Novolog Flexpen U-100 Insulin aspart) 20 unit subcut TID DM 11/29/19 fexofenadine 180 mg tablet 180 mg PO DAILY allergies 10/28/21 lidocaine 5 % topical patch (Lidoderm) 1 patch topical DAILY PRN Back Pain 10/28/21 magnesium oxide 400 mg PO BID PRN supplement 10/28/21 pantoprazole 40 mg tablet,delayed release (Protonix) 40 mg PO DAILY GERD 10/28/21 plecanatide 3 mg tablet (Trulance) 3 mg PO DAILY PRN gastroparesis 10/28/21 oxycodone-acetaminophen 5 mg-325 mg tablet (Percocet) 1 tab PO Q4H PRN pain 5 days #20 tabs 11/02/21 amlodipine 5 mg tablet 5 mg PO DAILY 30 days #30 tabs 01/27/22 aspirin 81 mg tablet,delayed release 81 mg PO DAILY@0800 #0 tabs 01/27/22 carvedilol 12.5 mg tablet 12.5 mg PO BID 30 days #60 tabs 01/27/22 The patient was counseled on the following discharge medications and changes in medications for homegoing were reviewed. The Reason for Use, instructions for use, and potential side effects were reviewed for all new medications. The patient's questions regarding all of their medications were answered. The patient was able to verbally demonstrate an understanding of their discharge medications.
[2022-01-27] MEDS: Loratadine 10 MG Tablet PO (11:15)
[2022-01-27] MEDS: Lisinopril 10 MG Tablet PO (11:15)
[2022-01-27] MEDS: Pantoprazole Sodium 40 MG Tablet PO (11:15)
[2022-01-27] MEDS: Carvedilol 12.5 MG Tablet PO (11:15)
[2022-01-27] MEDS: Clopidogrel Bisulfate 75 MG Tablet PO (11:15)
[2022-01-27] MEDS: amLODIPine 5 MG Tablet PO (11:16)
[2022-01-27] MEDS: Gabapentin 600 MG Tablet PO (11:16)
[2022-01-27] MEDS: Insulin Glargine-YFGN 100 UNIT/ML Pen 50 UNIT SC (11:16)
[2022-01-27 12:20] LABS: Bedside Glucose 175 mg/dL (74-106)
[2022-01-27 12:20] LABS: Bedside Glucose 201 mg/dL (74-106)
--- NOTE | 2022-01-27 14:24 | NURSING ---
Reviewed charting with Homero Garcia RN
== END 2022-01-27 13:13 | disposition home or self-care (01) | DRG 247 ==
LOC: ED 12:31 → PCU 14:09
PROVIDERS: Internal Medicine Cardiovascular Disease; Internal Medicine Interventional Cardiology; Admitting Provider Family Medicine; Emergency Provider Emergency Medicine; PCP Family Medicine; Visit Provider Family Medicine
DX: I21.4 Non-ST elevation (NSTEMI) myocardial infarction (principal); I65.09 Occlusion and stenosis of unspecified vertebral artery; E11.42 Type 2 diabetes mellitus with diabetic polyneuropathy; E11.51 Type 2 diabetes mellitus with diabetic peripheral angiopathy without gangrene; I25.700 Atherosclerosis of coronary artery bypass graft(s), unspecified, with unstable angina pectoris; I71.4 Abdominal aortic aneurysm, without rupture; Z79.4 Long term (current) use of insulin; E11.43 Type 2 diabetes mellitus with diabetic autonomic (poly)neuropathy; E78.00 Pure hypercholesterolemia, unspecified; I10 Essential (primary) hypertension; K21.9 Gastro-esophageal reflux disease without esophagitis; I44.4 Left anterior fascicular block; I25.2 Old myocardial infarction; K31.84 Gastroparesis; Z95.1 Presence of aortocoronary bypass graft; Z98.61 Coronary angioplasty status; Z79.02 Long term (current) use of antithrombotics/antiplatelets; Z79.82 Long term (current) use of aspirin; Z79.899 Other long term (current) drug therapy; Z86.73 Personal history of transient ischemic attack (TIA), and cerebral infarction without residual deficits
CPT/HCPCS: 36415; 71045; 80048; 80053; 82962; 83880; 84484; 85025; 85027; 85610; 85730; 92928; 93005; 93455; 97802; 99152; 99153; 99285; C1725; C1874; J7030; Q9967; A4216; C1760; C1769; C1887; C1894; C9600; J1940

== ENCOUNTER → 2022-01-25 | Outpatient (CLI) | payer OTHER, SELFPAY ==
[2022-01-25 11:00] LABS: Troponin-I HS 192 pg/mL (3.0-78.0)
== END | disposition home or self-care (01) ==
LOC: MFPLAB 10:01
PROVIDERS: PCP Registered Nurse; Visit Provider Family Medicine
DX: R07.89 Other chest pain (principal)
CPT/HCPCS: 36415; 84484

== ENCOUNTER → 2022-02-04 | Outpatient (CLI) | payer OTHER, MEDICARE, SELFPAY ==
--- NOTE | 2022-02-04 08:04 | PCM.CR.HP2 ---
CR - History & Physical - General Arrival date:: 02/04/22 - t Arrival time:: 08:00 Date of Referral:: 01/27/22 Date of CR Evaluation:: 02/04/22 Referring Physician: Dr. Simon Herman Primary Diagnosis: PCI w/coronary stenting - History of Present Cardiac Event Onset Date: Enter Onset Date of cardiac illnesses in Comment field below Current stable Angina Pectoris:: Yes Acute Myocardial Infarction within 12 months:: Yes - NSTEMI Coronary Artery Bypass Graft:: Yes - had triple bypass PTCA or coronary stenting:: Yes - 01/26/2022 Type of Symptoms:: Elevated blood pressure, chest pressure after climbing stairs, took nitroglycerine, short of breath similar signs symptoms when he had his previous heart attack. History of normal EKGs with CO's in the past. Only shows with troponins elevated cardiac enzymes. Interventions with present event:: Diagnostic Heart Cath Were there any complications?: None - Sleep Disorder Evaluation Hx of Sleep Apnea: Yes Do you snore loudly (louder than talking or can be heard through closed doors)?: Yes Do you often feel tired/ fatigued/ sleepy during daytime?: No Has anyone observed you stop breathing during sleep?: Yes History of Hypertension (for STOP score): No - REmoved soft pallet, uevulla and adenoids STOP Results: Positive - Medications Home Medications: Ambulatory Orders Medication Instructions Recorded gabapentin 600 mg tablet 600 mg PO DAILY pain 05/31/14 atorvastatin 40 mg tablet 40 mg PO QHS cholestrol 02/25/17 clopidogrel 75 mg tablet 75 mg PO DAILY blood thinner 02/25/17 insulin glargine 100 unit/mL (3 50 unit SQ BID DM 02/25/17 mL) subcutaneous pen lisinopril 5 mg tablet 10 mg PO DAILY BP 02/25/17 oxycodone-acetaminophen 5 mg-325 1 tab PO Q8H PRN PRN Pain 02/25/17 mg tablet insulin aspart U-100 100 unit/mL 20 unit subcut TID DM 11/29/19 (3 mL) subcutaneous pen (Novolog Flexpen U-100 Insulin aspart) fexofenadine 180 mg tablet 180 mg PO DAILY allergies 10/28/21 lidocaine 5 % topical patch 1 patch topical DAILY PRN Back Pain 10/28/21 (Lidoderm) magnesium oxide 400 mg PO BID PRN supplement 10/28/21 pantoprazole 40 mg tablet,delayed 40 mg PO DAILY GERD 10/28/21 release (Protonix) amlodipine 5 mg tablet 5 mg PO DAILY 30 days #30 tabs 01/27/22 aspirin 81 mg tablet,delayed 81 mg PO DAILY@0800 #0 tabs 01/27/22 release carvedilol 12.5 mg tablet 12.5 mg PO BID 30 days #60 tabs 01/27/22 plecanatide 3 mg tablet (Trulance) 3 mg PO DAILY PRN constipation #30 02/01/22 tabs - Allergies Allergies/Adverse Reactions: Allergies aripiprazole [From Abilify] Allergy (Mild, Verified 01/25/22 11:27) FELT POORLY atorvastatin [From Lipitor] Allergy (Verified 01/25/22 11:27) muscle aches nabumetone [From Relafen] Allergy (Verified 01/25/22 11:27) GI Advanced Directives - Advanced Directives Power of Confidential Investigator: No Living Will: No Advance Directives Information Provided: Yes Advance Directives on File: No DNR Order?:: No - MOLST See MOLST form: No Past Medical History - Covid-19 Screening Fever: No Unexplained muscle aches: No Current respiratory symptoms: No Upper respiratory infections symptoms: No Gastro-intestinal symptoms: No Tta-Hxzg-[id number] symptoms: No Has tested positive for COVID-19 in last 30 days: No Date of testin02/04/22 - Had both vaccines and one initial booster. H/O COVID in 06/28. Had contact w/person w/symptoms or Covid-19 (+) last 14 days: No Has High Risk Exposures ID'd by Health dept/Inf Control team: No 65 years or older:: Yes Lives in Assisted Living facility:: No Has a chronic lung disease or moderate to severe asthma:: No Has a serious heart condition:: Yes Immunocompromised:: No Diabetic:: Yes Has chronic kidney disease undergoing dialysis:: No Has liver disease:: No - Past Medical Illness Medical History: Past Medical History (Last Updated 02/04/22 @ 08:31 by Moris Wray, LEGAL FILE CLERK, RADIATION CONTROL SPECIALIST, BS) Abdominal aneurysm I71.4 3CM Allergies T78.40XA SEASONAL - TAKES DORETHA Arthritis M19.90 Atherosclerosis of coronary artery of [place] heart without angina pectoris I25.10 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 Rheumatoid arthritis M06.9 Stroke I63.9 X5 - L FOOT WEAKNESS Vascular disease I99.9 - Past Surgical History Surgical History: Past Surgical History (Last Updated 01/27/22 @ 08:49 by Tami Colmenares) H/O knee surgery Z98.890 History of laparoscopic cholecystectomy Z90.49 Hx of tonsillectomy Z90.89 Stented coronary artery Onset Date: 01/26/22 Z95.5 PCI Report: 1. Successful PCI of the proximal femoral left circumflex in-stent restenosis 80% with predilatation Using NC 3 x 15 mm Euphora balloon, followed by [place] Cutting Balloon 3 x 10 mm, followed by placement of drug-eluting stent 3.5 x 18 mm Orsiro [place]/RAY Followed by postdilatation using 3.5 x 12 mm NC Euphora balloon and reduction of stenosis from 80% to 0% and maintenance of pre and post DIMITRI-3 flow. 2. Successful PCI and stent of mid left circumflex diffuse coronary atherosclerosis of 80% with predilatation, followed by placement of drug-eluting stent 2.25 x 22 mm With RAY/Orsiro reduction of stenosis to 0% and maintenance of pre and post DIMITRI-3. Vertebral artery stenosis I65.09 s/p stent Surgical History: adenoidectomy, appendectomy, arthroscopy, knee, coronary bypass surgery, tonsillectomy - Family History Summary Family History: Family History (Last Reviewed 01/25/22 @ 13:54 by Beth Atkinson) Mother Heart disease Father Heart disease Social History - Smoking History Smoking Status: Never smoker - Alcohol Use Alcohol Usage: No - Substance Abuse Hx Substance Use: No - Occupation Occupation (List type of work in comments):: Retired - disability - Hobbies, Recreation, Social Activities Hobbies: Other - make fishing lure, fishing, outdoor sports Recreational Activities: I am able to engage in a few activities Social Environment - Status Marital Status: - Current Living Arrangements Living Environment:: Spouse - Children How many children do you have?: 3 Do any of your children live nearby?: Yes - Safety Do you feel safe in your surroundings?: Yes - Assistance Do you need any assistance at home?: none Review of Systems - Review of Systems Hints: Right click = Denies ([place]). Left click = Reports ([place]) Review of Present Symptoms: Reports: Shortness of Breath at Rest - sometimes can be a little winded., Shortness of Breath with Exertion - still has some but not as bad as prior to the stent placement, Dizziness/Lightheadedness - due to BP new medications getting back under control., Fatigue, Heart Arrhythmia/Irregularities - H/O Paroxsymal atrial fibrillationin the past., Appetite - Normal, Appetite - Special Diet - Diabetic, cut back on sweets, portion control low carb, no added salt, low fats. A1c down from 11 to 8.1 may be even lower., Sleep - Normal. Denies: Angina, Sexual Changes - Pain Is Patient Pain Free?: No Pain Location: other - chronic fibromyalgia pain usually in the morning, very stiff and hard to get around. Pain Level: 5/10 Risk Factor Assessment - Chief Complaint Chief Complaint: PT is [address] Herman who was admitted to [facility] for chest pain (NSTEMI). Based on his clinical diagnosis and history of underlying CAD CABG, patient was scheduled for diagnostic heart cath resulting in presence of angioplasty implant & graft placement. - Vital Signs Temperature: 97.5 F Respiratory Rate: 12 Pulse Ox: 99 Blood Pressure: 128/58 - Pulse Pulse Rate: 70 Pulse Rhythm: Regular - Hypertension How long have you been treated?: 20-21 years On medication(s)?: Yes Blood Pressure Sitting - Left Arm: 128/58 - Blood Cholesterol/Lipids Total Cholesterol (mg/dL) Goal = less than 200 mg/dL: 221 HDL Cholesterol (mg/dL) Goal = less than 40 mg/dL: 31 LDL Cholesterol (mg/dL) Goal = less than 70 mg/dL: 146 Triglycerides (mg/dL) Goal = less than 150 mg/dL: 221 - Diabetes Diabetic History: Type II, Insulin Dependent Nutrition Referral for Diabetes: Yes - Obesity Height: 6 ft 3 in Weight:: 247 lb Weight in Pounds: 247.0 lbs Weight Source: [facility] Body Mass Index (BMI): 30.9 Nutritional Referral for Obesity: Yes - Physical Inactivity Physical Inactivity: None - been wanting to start but has had medical issues to prevent that. Previously walked for exercise. - Risk Stratification Risk Guidelines: Lowest Risk: Risk Factor for Dyslipidemia, Risk Factor for Diabetes - A1c down from 11.4 to 8.1!, Risk Factor for Hypertension, Moderate Risk: Risk Factor for Sedentary Lifestyle, Highest Risk: Risk Factor for Obesity - BMI 30.9 - Family History Family History: Family History (Last Reviewed 01/25/22 @ 13:54 by Beth Atkinson) Mother Heart disease Father Heart disease Motivation - Motivation to Participate On a scale of 1 to 10, how prepared are you to commit to attending program?: 10 What do you see as barriers to successfully being able to complete the program?: work barrier, hauls moravian . What do you see as the benefits of succesfully completing the program? In other words, what do you hope to get out of participating in the program?: Strength, endurance, healthier, long life expectancy. A type personality Are there issues you are dealing with that will interfere with completing the program?: Fibromyalgia pain in the mornings, sometime can be very stiff. Do you have a spouse or signficant other, family or friends who will help support you to complete the program?: yes
--- NOTE | 2022-02-04 08:05 | CR.ITP_ITS ---
Diagnosis - General Information Admitting Diagnosis: PCI w/coronary stenting Secondary Diagnosis: Previous H/O CABG (2000), CAD, HLD, HTN, and Obesity Personal Learning Style:: Audio/Visual, Written Barriers to Learning: Vision Impairment - Requires Readers for reading Stage of change r/t lifestyle modifications:: Action Gave educational material for:: Treating Heart Disease, Emotions & Heart Disease, Stress Management & Relaxation, Sleep Disorders & Heart Disease, How The Heart Works, What it means to have Heart Disease, How Coronary Artery Disease is Diagnosed, Heart Procedures, What Heart Medications Do, Risk Factors & Modifications, Living an Active Life, Nutrition - Education/Goals Individual Counseling: Initial Assessment: Abnormal Cholesterol Levels, High Blood Pressure, Overweight/Obesity Cardiac Rehabilitation Goals: 1. Maintain the individual as the primary focus of care. 2. To improve the patient's quality of life. 3. Identification of cardiac risk factors and provide cardiac risk factor management. 4. Enhance the psychosocial status of the patient. 5. Reconditioning enough to allow the patient to resume customary activities. 6. Control symptoms of cardiac disease Personal Goals: Initial Assessment: Improve energy level, Participate in home exercise program, Get back to work, or to resume activities faster, Improve muscle strength and endurance, Control risk factors (learn risk factor modification) Scale for measuring improvement of personal goals: Enter appropriate number in Comments. 2 = Unchanged. 3 = Slightly Better. 4 = Moderate Improvement. 5 = Met my Goal - Diagnosis & Disease Process Outcomes/Goals: Pt IDs own risk factors & lifestyle modifications by Session 10, Verbalizes symptoms of angina & response by session 3., Pt independently manages Plan/Interventions: Assist Pt to ID & engage in lifestyle modification to reduce CVD risk, Instruct on individual risk factors, Review symptoms of angina & emergency actions, Review secondary diagnosis & identify educational needs. - Safety Referral to Physical Therapy: No Referral to [facility] Case Management: No Fall Risk Assessed:: Yes Assistive Devices:: None Exercise - Initial Assessment - Visit Date of Eval: 02/04/22 Session #:: 0 - Pre-cardiac rehab evaluation - Physician Prescribed Exercise Modalities: Treadmill, Rower, Airdyne Frequency: 3x/week for 12 weeks [36 sessions] Intensity: 60-80% of age predicted maximum heart rate reserve Current METSs:: 3.5 Target Heart Rate:: 100-131 Resting Blood Pressure: 128/58 EKG Type: Sinus Rhythm w 1st degree AV block. - Outcomes & Goals Goals:: Verbalizes understanding of THR, RPE & goal METS by session 6, Documents in home exercise log/reports 30 min aerobic 5 day/wk by DC, Demonstrates accurate pulse taking by DC - Intervention & Plan Exercise Program Goals: Instruct on personal THR & RPE, Instruct on MET level & personal MET goal, Show patient to take own pulse /validate performance until accurate, Instruct on home exercise - Physical Activity Home Exercise Physical Activity - Home Exercise: Safe Exercise, Warm-up, Self-monitoring, Cool-Down, Home Exercise > 30 min Daily, Sitting Time <3 hours/daily - Outcomes & Goals Outcomes/Goals: Demonstrates correct Warm-up/exercise Cool-Down (S3) if = 2.5 METs, Verbalizes symptoms of exercise intolerance by Session 3 (S3), Demonstrate safe equipment use (S3) & follows exercise prescrition (6) - Intervention & Plan Plan/Intervention: Instruct warm-up & cool-down if exercising at > 2 METs, Instruct on symptoms of exercise intolerance & actions to take, Instruct & monitor on saf, Assess intial functional capacity & safety risk Nutrition - Initial Assessment - Program Goals Nutrition Program Goals: LDL <100 optimal. 100 - 129 Near optimal. 130 - 159 Borderline High. 160 - 189 High. Total Cholesterol <200 desirable. 200 - 239 Borderline High. >/= 240 High. HDL < 40 Low >/=60 High. Triglycerides <150 desirable. <199 optimal. VlDL 5 - 40. HgbA1C <7%. BMI <25 Patient has diagnosis of Hyperlipidemia (ICD E78)?: Yes - Visit Date of Assessment:: 02/04/22 Session #:: 0 - Pre-cardiac rehab evaluation - Cholesterol/Lipids Triglycerides (mg/dL): 221 Total Cholesterol (mg/dL): 221 LDL Cholesterol (mg/dL): 146 HDL Cholesterol (mg/dL): 31 Determine presence & major risk factors that modify LDL goal: Hypertension or hypertensive medication, Low HDL cholesterol <40 mg/dL*, Family history of premature CHD in Male < 55 years: female <65 yearsFa, Age men > 45 years; women >/= 55 years Outcomes/Goals: Pt IDs own risk factors & lifestyle modifications by Session 10, Verbalizes symptoms of angina & response by session 3., Pt independently manages Intervention/Plan: Instruct on personal lipid levels & lipid goals/NCEP guidelines, Instruct on cholesterol Referral to dietitian:: Yes - Medical Nutrition Therapy - Diabetes (Other Core Measures) Diabetes Type: Diagnosis Type II ICD-10 E11 Fasting blood glucose:: 158 Hgb A1C (4.2 - 6.3): 8.1 Insulin dependent injection/pump?: Yes - Lantus Non-Insulin Dependent?: No Do you monitor your blood sugar at home?: Yes Referral to Diabetic Clinic:: Yes Outcomes/Goals:: Able to state symptoms of, Able to state, Able to state Intervention/Plan:: Instruct on, Refer to, Instruct on - Weight Mgt (Other Care) Not Applicable: No Height: 6 ft 3 in Weight:: 247 lb BMI: 30.9 Diagnosis Overweight/Obesity BMI> 30% ICD-10 E66: Yes Diagnosis High BMI/Morbid Obesity BMI> 35% ICD-10 Z68: No Outcomes/Goals: Pt sets, maintains & shows weight loss goal & trend during rehab Intervention/Plan: Instruct on ideal BMI & set weight loss goal w/patient, As sist pt to ID & incorporate diet changes for weight loss by S9, Refer to Structured Weight Loss program as appropriate, Encourage goal of using 250- 300dcal per session for weight loss - Healthy Eating Habits Will attend diet classes:: Yes Outcomes/Goals:: Consume diet rich in vegs,fruits,whole grain/high fiber,fish,lean meat, Limit sat/trans fats,cholesterol & added salts & sugars Intervention/Plan:: Assess current eating habits - Education Gave educational materials for:: Healthy eating Nutrition - 30-Day Assessment Nutrition - 60-Day Assessment Nutrition - 90-Day Assessment Nutrition - Final Assessment Medical - Initial Assessment - Visit Date of Eval: 02/04/22 Session #:: 0 - Pre-cardiac rehab evaluation - Medication Compliance Preventative Medication(s):: Aspirin, Clopidogrel/P2Y12 inhibit, Statin/lipid, Beta noris H/O mental health issues: depression, anxiety, or addiction?: No Doesn?t believe in the benefits of treatment?: No Believes medications are unnecessary or harmful?: No Has a concern about medication side effects?: No Expresses concern over the cost of medications?: No Outcomes/Goals: Verbalizes medications,desired effect & common side effects @ DC, Pt self-reports following medication regimen, Keeps card in wallet w/medications listed by DC Interventions/plans: Instruct on medication effects & side effects, Review medication list w/patient every two weeks, Instruct importance of taking meds as ordered & assist problem solving - Tobacco Use Tobacco Use: Non-smoker - Hypertension Hypertension Diagnosis:: Hypertension ICD-10 I10 Resting Blood Pressure:: 128/58 [place] [employer] Hypertension Guidelines: [place] [employer] Hypertension Guidelines. Normal BP Less than 120/80. Elevated BP 120/80. Hypertension Stage 1: BP 130-139/80-89. Hypertesnion Stage 2: BP 140 or higher/90 or higher. Hypertension Crisis: BP higher than 180/120 Outcomes/Goals: Able to verbalize/achieve optimal blood pressure <130/80, Incorporates diet changes & exercise for blood pressure control by DC Interventions/plan: Instruct on optimal blood pressure, hypertension & medications, Instruct on effects of sodium, alcohol, stress, exercise &hypertension - Tobacco Cessation Referral Smoking Cessation Referral:: No Individual Education/Counseling:: No Education Schedule Given:: Yes Medical- 30-Day Assessment Medical- 60-Day Assessment Medical- 90-Day Assessment Medical - Final Assessment Psychosocial - Initial Assess - VIsit Date of Eval: 02/04/22 Session #:: 0 - Pre-cardiac rehab evaluation Not Applicable: Yes History of previous Mental disease:: No - Psychosocial Test Tool Used:: Believe.in QOL Cardiac, PHQ-9 Questionnaire phq-9 Severity: Severity. 1-4 Minimal Depression. 5-9 Mild Depression. 10-14 Moderate Depression. 15-19 Moderately Sever Depression. 20-27 Severe Depression. Rule: - Referral to Behavioral Health PS - Interventions: Yes Attend Stress Management Classes, No Referral to Behavioral Health if PHQ-9 score >9:, No Referral to [facility], No Referral to Physician if PHQ-9 if score is 5-9: - Outcomes/Goals: See list Psychosocial Outcomes/Goals:: ID's personal stressors & 2 strategies to manage stress by discharge - Intervention/Plan: See List Interventions/Plan:: Assess stressors,coping strategies & signs of derpression on admission, Instruct/assist pt to develop coping & personal stress Mgt strategies, Instruct patient to recognize signs & symptoms of depression, Instruct patient to recog Psychosocial - 30-Day Assess Psychosocial - 60-Day Assess Psychosocial - 90-Day Assess Psychosocial - Final Assessmen NELLIE-Q SV Test - Statements CAD is a disease of the arteries in the heart: False Examples of risk factors for heart disease: True Angina is chest pain or discomfort: True The benefits of resistance training include: False Eating more meat and dairy products: False Anti-platelet medications such as aspirin are important: True The only effective way to manage stress: False An exercise warm-up slowly increases heart rate: True Prepared, processed foods usually have high sodium: True Depression is common after a heart attack: True The statin medications lower cholesterol: True To control blood pressure, lower the amount of sodium: True If someone gets chest discomfort during walking: False Transfats are partially hydrogenated vegetable oils: True Sleep apnea that is not treated increases the risk: True To control cholesterol, one should become a vegetarian: False Someone knows if he/she is exercising at the right level: True Diabetes cannot be prevented with exercise & health eating: False Stress is a large risk for heart attack: False A diet that can help lower blood pressure is rich in: True - Total Score Total Correct Responses: 17 Self-Efficacy Initial Assessment We would like to know how confident you are in doing certain activities. Please select your confidence level for:: Select your confidence level for the following using the scale 1-10 where 1 is not at all confident and 10 is totally confident. Your score is the average of all 6 responses. Fatigue: How confident are you that you can keep the fatigue caused by your disease from interfering with the things you want to do? Select Number: 10 Physical Discomfort or Pain: How confident are you that you can keep the physical discomfort or pain of your disease from interfering with the things you want to do? Select Number: 10 Emotional Distress: How confident are you that you can keep the emotional d istress caused by your disease from interfering with the things you want to do? Select Number: 10 Other Symptoms or Health Problems: How confident are you that you can keep other symptoms or health problems from interfering with the things you want to do? Select Number: 10 Different Tasks and Activities: How confident are you that you can do the different tasks and activities needed to manage your health condition so as to reduce your need to see a doctor? Select Number: 10 Medication: How confident are you that you can do things other than just taking medication to reduce how much your illness affects your everyday life? Select Number: 10 Total Score:: 10 Nutrition Survey - Nutrition Survey Initial Have you lost >10 lbs over the past 2 months without trying?: Yes Are you following a special diet at home for diabetes, low fat, or low salt?: Yes Are you interested in meeting with a dietitian for help understanding your diet?: No Do you eat less than 3 meals a day?: No Do you eat fatty meats (kelley, sausage, ribs, etc), fried foods, desserts, large amounts of salad dressings, margarine, butter, or cheese most days?: No Do you have food allergies? [Enter types in comment field]: No Do you eat in restaurants more than 3 times a week?: No Do you season food with salt, seasoning salt, or garlic salt?: Yes Do you used canned, boxed, frozen meals, or soups, seasoning packets?: Yes Total Score:: 4
[2022-02-04 08:39] VITALS: BP 128/58; PULSE 70; RESP 12; TEMP 36.4; O2SAT 99; BMI 30.9
[2022-02-04 09:17] VITALS: BP 128/58; BMI 30.9
== END | disposition home or self-care (01) ==
LOC: CR 07:59
PROVIDERS: PCP Family Medicine; Referring Provider Internal Medicine Cardiovascular Disease; Visit Provider Internal Medicine Cardiovascular Disease
DX: E78.5 Hyperlipidemia, unspecified (principal); E66.9 Obesity, unspecified; Z86.39 Personal history of other endocrine, nutritional and metabolic disease; Z86.79 Personal history of other diseases of the circulatory system; Z86.73 Personal history of transient ischemic attack (TIA), and cerebral infarction without residual deficits

== ENCOUNTER 2022-03-07 08:50 | Outpatient (RCR) | payer OTHER, SELFPAY ==
[2022-02-04 09:17] VITALS: BMI 30.9
== END 2022-03-09 23:59 ==
LOC: DC 08:50
PROVIDERS: PCP Family Medicine; Referring Provider Internal Medicine Cardiovascular Disease; Visit Provider Internal Medicine Cardiovascular Disease
DX: E11.9 Type 2 diabetes mellitus without complications (principal); Z86.39 Personal history of other endocrine, nutritional and metabolic disease; Z86.79 Personal history of other diseases of the circulatory system; Z86.73 Personal history of transient ischemic attack (TIA), and cerebral infarction without residual deficits; E78.5 Hyperlipidemia, unspecified; E66.9 Obesity, unspecified; Z68.31 Body mass index [BMI] 31.0-31.9, adult
CPT/HCPCS: 97802

== ENCOUNTER 2022-03-09 08:00 | Outpatient (RCR) | payer OTHER, SELFPAY ==
[2022-02-04 09:17] VITALS: BMI 30.9
== END 2022-03-09 23:59 ==
LOC: CR 08:00
PROVIDERS: PCP Family Medicine; Referring Provider Internal Medicine Cardiovascular Disease; Visit Provider Internal Medicine Cardiovascular Disease
DX: I25.10 Atherosclerotic heart disease of native coronary artery without angina pectoris (principal); I21.4 Non-ST elevation (NSTEMI) myocardial infarction; Z95.5 Presence of coronary angioplasty implant and graft
CPT/HCPCS: 93798

== ENCOUNTER 2022-03-30 07:50 | Outpatient (RCR) | payer OTHER, SELFPAY ==
[2022-02-04 09:17] VITALS: BMI 30.9
[2022-03-11 07:44] VITALS: BMI 31.1
== END 2022-04-08 23:59 ==
LOC: DC 07:50
PROVIDERS: PCP Family Medicine; Referring Provider Internal Medicine Cardiovascular Disease; Visit Provider Internal Medicine Cardiovascular Disease
DX: E11.9 Type 2 diabetes mellitus without complications (principal); E78.5 Hyperlipidemia, unspecified; E66.9 Obesity, unspecified; Z68.31 Body mass index [BMI] 31.0-31.9, adult; Z86.39 Personal history of other endocrine, nutritional and metabolic disease; Z86.79 Personal history of other diseases of the circulatory system; Z86.73 Personal history of transient ischemic attack (TIA), and cerebral infarction without residual deficits
CPT/HCPCS: 97803

== ENCOUNTER 2022-04-08 08:00 | Outpatient (RCR) | payer OTHER, SELFPAY ==
[2022-02-04 09:17] VITALS: BMI 30.9
--- NOTE | 2022-03-11 07:23 | CR.ITP_ITS ---
Diagnosis Exercise - 30-day Assessment - Visit Date of Eval: 03/11/22 Session #:: 9 - Patient started his CR on 02/11/2022 Comments:: Patient has missed two (2) scheduled appointments due to other appointment conflicts - Physician Prescribed Exercise Modalities: Treadmill, Airdyne, NuStep Frequency: 3x/week for 12 weeks [36 sessions] Intensity: 60-80% of age predicted maximum heart rate reserve Duration: 30 - 45 minutes Current METSs:: 3.7 Current RPE:: 12-14 Maximum Excercise HR:: 98 treadmill Resting Blood Pressure: 110/70 Maximum Exercise Blood Pressure: 122/44 - Airdyne Bike EKG Type: Sinus rhythm to sinus tach with first degree AV block noted Current Physical Activity or Exercising minutes: 53:04 - Outcomes & Goals Goals:: Verbalizes understanding of THR, RPE & goal METS by session 6, Documents in home exercise log/reports 30 min aerobic 5 day/wk by DC, Demonstrates accurate pulse taking by DC Comment:: Patient return demonstration of pulse taking skill - Intervention & Plan Exercise Program Goals: Instruct on personal THR & RPE, Instruct on MET level & personal MET goal, Show patient to take own pulse /validate performance until accurate, Instruct on home exercise Comment:: Patient able to verbalize understanding pf exercise prescription - 30-day Reassessments 30 day Reassessments:: Met - Physical Activity Home Exercise Physical Activity - Home Exercise: Safe Exercise, Warm-up, Self-monitoring, Cool-Down, Home Exercise > 30 min Daily, Sitting Time <3 hours/daily - Outcomes & Goals Outcomes/Goals: Demonstrates correct Warm-up/exercise Cool-Down (S3) if = 2.5 METs, Verbalizes symptoms of exercise intolerance by Session 3 (S3), Demonstrate safe equipment use (S3) & follows exercise prescrition (6) - Intervention & Plan Plan/Intervention: Instruct warm-up & cool-down if exercising at > 2 METs, Instruct on symptoms of exercise intolerance & actions to take, Instruct & monitor on saf, Assess intial functional capacity & safety risk - 30-day Reassessments 30 day Reassessments:: Met Reassessment Notes & Comments:: Patient initiates exercise routine, properly operates equipment safely and attentive to equipment operation safety. Nutrition - Initial Assessment Nutrition - 30-Day Assessment - Program Goals Nutrition Program Goals: LDL <100 optimal. 100 - 129 Near optimal. 130 - 159 Borderline High. 160 - 189 High. Total Cholesterol <200 desirable. 200 - 239 Borderline High. >/= 240 High. HDL < 40 Low >/=60 High. Triglycerides <150 desirable. <199 optimal. VlDL 5 - 40. HgbA1C <7%. BMI <25 Patient has diagnosis of Hyperlipidemia (ICD E78)?: Yes - Visit Date of Assessment:: 03/11/22 Session #:: 9 - no recent labs drawn since admission ot CR. - Cholesterol/Lipids Referral to dietitian:: No - Patient had his Medical Nutrition Therapy appointment on 02/23/2022 30-day Reassessments:: Met - Diabetes (Other Core Measures) Diabetes Type: Diagnosis Type II ICD-10 E11 Fasting blood glucose:: 211 Insulin dependent injection/pump?: Yes Do you monitor your blood sugar at home?: Yes Referral to Diabetic Clinic:: No - Met with Nutrition Services on 02/23/2022 Outcomes/Goals:: Able to state symptoms of - hyperglycemia, hypoglycemia and proper response to prevent acute diabetic reaction. 30-day Reassessments:: Met - Weight Mgt (Other Care) Height: 6 ft 3 in Weight:: 249 lb BMI: 31.1 Diagnosis Overweight/Obesity BMI> 30% ICD-10 E66: Yes Diagnosis High BMI/Morbid Obesity BMI> 35% ICD-10 Z68: No Outcomes/Goals: Pt sets, maintains & shows weight loss goal & trend during rehab Intervention/Plan: Instruct on ideal BMI & set weight loss goal w/patient 30 day Reassessments:: Progressing - patient working on his eating habits and portion control through Nutrition services. - Healthy Eating Habits Will attend diet classes:: Yes Outcomes/Goals:: Consume diet rich in vegs,fruits,whole grain/high fiber,fish,lean meat, Limit sat/trans fats,cholesterol & added salts & sugars Intervention/Plan:: Assess current eating habits 30-day Reassessments:: Progressing - Education Gave educational materials for:: Signs & symptoms of hypoglycemia, Signs & symptoms of hyperglycemia, Relate diabetes to coronary artery disease, Healthy eating Nutrition - 60-Day Assessment Nutrition - 90-Day Assessment Nutrition - Final Assessment Core - Initial Assessment Core - 30-Day Assessment - Visit Date of Eval: 03/11/22 Session #:: 9 - Medication Compliance Preventative Medication(s):: Aspirin, Clopidogrel/P2Y12 inhibit, Statin/lipid, Beta noris H/O mental health issues: depression, anxiety, or addiction?: No Doesn?t believe in the benefits of treatment?: No Believes medications are unnecessary or harmful?: No Has a concern about medication side effects?: No Expresses concern over the cost of medications?: No Outcomes/Goals: Verbalizes medications,desired effect & common side effects @ DC, Pt self-reports following medication regimen, Keeps card in wallet w/medications listed by DC Interventions/plans: Instruct on medication effects & side effects, Review medication list w/patient every two weeks, Instruct importance of taking meds as ordered & assist problem solving 30-day Reassessments:: Met - Tobacco Use Tobacco Use: Non-smoker - Hypertension Resting Blood Pressure:: 112/78 [place] [employer] Hypertension Guidelines: [place] [employer] Hypertension Guidelines. Normal BP Less than 120/80. Elevated BP 120/80. Hypertension Stage 1: BP 130-139/80-89. Hypertesnion Stage 2: BP 140 or higher/ 90 or higher. Hypertension Crisis: BP higher than 180/120 Peak Exercise Blood Pressure:: 122/44 Outcomes/Goals: Able to verbalize/achieve optimal blood pressure <130/80, Incorporates diet changes & exercise for blood pressure control by DC Interventions/plan: Instruct on optimal blood pressure, hypertension & medications, Instruct on effects of sodium, alcohol, stress, exercise &hypertension 30 day Reassessments:: Met - patient has eliminated adding salt to his foods. (No Added Sodium Diet) - Tobacco Cessation Referral Smoking Cessation Referral:: No Individual Education/Counseling:: Yes Core - 60-Day Assessment Core - 90 Day Assessment Core - Final Assessment Psychosocial - Initial Assess Psychosocial - 30-Day Assess - VIsit Date of Eval: 03/11/22 Session #:: 9 Not Applicable: Yes History of previous Mental disease:: No - Psychosocial Test Tool Used:: PHQ-9 Questionnaire phq-9 Severity: Severity. 1-4 Minimal Depression. 5-9 Mild Depression. 10-14 Moderate Depression. 15-19 Moderately Sever Depression. 20-27 Severe Depression. Rule: - Referral to Behavioral Health PS - Interventions: Yes Attend Stress Management Classes, No Referral to Behavioral Health if PHQ-9 score >9:, No Referral to [facility], No Referral to Physician if PHQ-9 if score is 5-9: - Outcomes/Goals: See list Psychosocial Outcomes/Goals:: ID's personal stressors & 2 strategies to manage stress by discharge - Intervention/Plan: See List Interventions/Plan:: Assess stressors,coping strategies & signs of derpression on admission, Instruct/assist pt to develop coping & personal stress Mgt iliana pittman, Instruct patient to recognize signs & symptoms of depression, Instruct patient to recog - 30-day Reassessments: 30 day Reassessments:: Progressing - patient will participate in stress management classes Psychosocial - 60-Day Assess Psychosocial - 90-Day Assess Psychosocial - Final Assessmen Patient Health Questionnaire 30-Day Re-eval Assessment 1. Little interest or pleasure in doing things: Not at all 2. Feeling down, depressed, or hopeless: Not at all 3. Trouble falling or staying asleep, or sleeping too much: Several days 4. Feeling tired or having little energy: Several days 5. Poor appetite or overeating: Not at all 6. Feeling bad about yourself -- or that you are a failure or have let yourself or your family down: Not at all 7. Trouble concentrating on things, such as reading the newspaper or watching television: Not at all 8. Moving or speaking so slowly that other people could have noticed. Or the opposite - being so fidgety or restless that you have been moving around a lot more than usual: Not at all 9. Thoughts that you would be better off , or of hurting yourself in some way: Not at all How difficult have these problems made it for you to do your work, take care of things at home, or get along with other people?: Not difficult at all Total Score: 2 Self-Efficacy 30-Day Re-eval Assessment We would like to know how confident you are in doing certain activities. Please select your confidence level for:: Select your confidence level for the following using the scale 1-10 where 1 is not at all confident and 10 is totally confident. Your score is the average of all 6 responses. Fatigue: How confident are you that you can keep the fatigue caused by your disease from interfering with the things you want to do? Select Number: 10 Physical Discomfort or Pain: How confident are you that you can keep the physical discomfort or pain of your disease from interfering with the things you want to do? Select Number: 10 Emotional Distress: How confident are you that you can keep the emotional distress caused by your disease from interfering with the things you want to do? Select Number: 10 Other Symptoms or Health Problems: How confident are you that you can keep other symptoms or health problems from interfering with the things you want to do? Select Number: 10 Different Tasks and Activities: How confident are you that you can do the different tasks and activities needed to manage your health condition so as to reduce your need to see a doctor? Select Number: 10 Medication: How confident are you that you can do things other than just taking medication to reduce how much your illness affects your everyday life? Select Number: 10 Total Score:: 10 Nutrition Survey
[2022-03-11 07:44] VITALS: BP 110/70; BP 112/78; BP 122/44; BMI 31.1
--- NOTE | 2022-04-08 11:23 | CR.ITP_ITS ---
Diagnosis Exercise - 60-day Assessment - Visit Date of Eval: 04/08/22 Session #:: 16 - Physician Prescribed Exercise Modalities: Treadmill, Airdyne, NuStep Frequency: 3x/week for 12 weeks [36 sessions] Intensity: 60-80% of age predicted maximum heart rate reserve Current METSs:: 3.7 Target Heart Rate:: 100-131 Current RPE:: 13 Maximum Excercise HR:: 95 Resting Blood Pressure: 132/68 Maximum Exercise Blood Pressure: 132/68 EKG Type: SR 1st degree AV block with occas PVC - Outcomes & Goals Goals:: Verbalizes understanding of THR, RPE & goal METS by session 6, Documents in home exercise log/reports 30 min aerobic 5 day/wk by DC, Demonstrates accurate pulse taking by DC, Other additional outcome/goals: see below - Intervention & Plan Exercise Program Goals: Instruct on personal THR & RPE, Instruct on MET level & personal MET goal, Show patient to take own pulse /validate performance until accurate, Instruct on home exercise, Other additional plan/int - 30-day Reassessments 30 day Reassessments:: Progressing - THR explained - Physical Activity Home Exercise Physical Activity - Home Exercise: Safe Exercise, Warm-up, Self-monitoring, Cool-Down, Home Exercise > 30 min Daily, Sitting Time <3 hours/daily - Outcomes & Goals Outcomes/Goals: Demonstrates correct Warm-up/exercise Cool-Down (S3) if = 2.5 METs, Verbalizes symptoms of exercise intolerance by Session 3 (S3), Demonstrate safe equipment use (S3) & follows exercise prescrition (6), Other: See below - Intervention & Plan Plan/Intervention: Instruct warm-up & cool-down if exercising at > 2 METs, Inst ruct on symptoms of exercise intolerance & actions to take, Instruct & monitor on saf, Assess intial functional capacity & safety risk, Other See below - 30-day Reassessments 30 day Reassessments:: Progressing - cool down encouraged Nutrition - Initial Assessment Nutrition - 30-Day Assessment Nutrition - 60-Day Assessment - Program Goals Nutrition Program Goals: LDL <100 optimal. 100 - 129 Near optimal. 130 - 159 Borderline High. 160 - 189 High. Total Cholesterol <200 desirable. 200 - 239 Borderline High. >/= 240 High. HDL < 40 Low >/=60 High. Triglycerides <150 desirable. <199 optimal. VlDL 5 - 40. HgbA1C <7%. BMI <25 Patient has diagnosis of Hyperlipidemia (ICD E78)?: Yes - Visit Date of Assessment:: 04/08/22 Session #:: 16 - Cholesterol/Lipids (Other Core Measures) Determine presence & major risk factors that modify LDL goal: Cigarette smoking, Hypertension or hypertensive medication, Low HDL cholesterol <40 mg/dL*, Family history of premature CHD in Male < 55 years: female <65 yearsFa, Age men > 45 years; women >/= 55 years Outcomes/Goals: Pt IDs own risk factors & lifestyle modifications by Session 10, Verbalizes symptoms of angina & response by session 3., Pt independently manages, Other Additional Outcomes/Goals: Intervention/Plan: Advocate for lipid panel cholesterol medication if applicable, Instruct on personal lipid levels & lipid goals/NCEP guidelines, Instruct on cholesterol, Other additional plan/int 30-day Reassessments:: Progressing - risk factors explained - Diabetes (Other Core Measures) Diabetes Type: Diagnosis Type II ICD-10 E11 Insulin dependent injection/pump?: Yes Do you monitor your blood sugar at home?: Yes Referral to Diabetic Clinic:: No 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 - Weight Mgt (Other Care) Height: 6 ft 3 in Weight:: 112.491 kg BMI: 30.9 Diagnosis Overweight/Obesity BMI> 30% ICD-10 E66: Yes Diagnosis High BMI/Morbid Obesity BMI> 35% ICD-10 Z68: No Outcomes/Goals: Pt sets, maintains & shows weight loss goal & trend during rehab, Other additional outcomes/goals Intervention/Plan: Instruct on ideal BMI & set weight loss goal w/patient, Assist pt to ID & incorporate diet changes for weight loss by S9, Refer to Structured Weight Loss program as appropriate, Encourage goal of using 250- 300dcal per session for weight loss, Other additional plan/interventions 30 day Reassessments:: Progressing - 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 - Healthy Eating Habits Will attend diet classes:: Yes Outcomes/Goals:: Consume diet rich in vegs,fruits,whole grain/high fiber,fish,lean meat, Limit sat/trans fats,cholesterol & added salts & sugars, Other additional outcome/goals: Intervention/Plan:: Assess current eating habits, Other Additional plan/interventions 30-day Reassessments:: 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 - 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 tank truck mechanic - Education Gave educational materials for:: Signs & symptoms of hypoglycemia, Signs & symptoms of hyperglycemia, Relate diabetes to coronary artery disease, Healthy eating Nutrition - 90-Day Assessment Nutrition - Final Assessment Core - Initial Assessment Core - 30-Day Assessment Core - 60-Day Assessment - Visit Date of Eval: 04/08/22 Session #:: 16 - Medication Compliance Preventative Medication(s):: Aspirin, Clopidogrel/P2Y12 inhibit, Statin/lipid, Beta noris H/O mental health issues: depression, anxiety, or addiction?: No Doesn?t believe in the benefits of treatment?: No Believes medications are unnecessary or harmful?: No Has a concern about medication side effects?: No Expresses concern over the cost of medications?: No Outcomes/Goals: Verbalizes medications,desired effect & common side effects @ DC, Pt self-reports following medication regimen, Keeps card in wallet w/medications listed by DC, Other additional outcome/goals: Interventions/plans: Instruct on medication effects & side effects, Review medication list w/patient every two weeks, Instruct importance of taking meds as ordered & assist problem solving, Other additional 30-day Reassessments:: Progressing - med side effects explained - Tobacco Use Tobacco Use: Non-smoker - Hypertension Hypertension Diagnosis:: Hypertension ICD-10 I10 Resting Blood Pressure:: 132/68 [place] [employer] Hypertension Guidelines: [place] [employer] Hypertension Guidelines. Normal BP Less than 120/80. Elevated BP 120/80. Hypertension Stage 1: BP 130-139/80-89. Hypertesnion Stage 2: BP 140 or hi gher/90 or higher. Hypertension Crisis: BP higher than 180/120 Peak Exercise Blood Pressure:: 132/68 Outcomes/Goals: Able to verbalize/achieve optimal blood pressure <130/80, Incorporates diet changes & exercise for blood pressure control by DC, Other additional outcomes/goals Interventions/plan: Instruct on optimal blood pressure, hypertension & medications, Instruct on effects of sodium, alcohol, stress, exercise &hypertension, Other additional plan/interventions 30 day Reassessments:: Progressing - taking meds encouraged - Tobacco Cessation Referral Smoking Cessation Referral:: No Individual Education/Counseling:: No Education Schedule Given:: Yes Core - 90 Day Assessment Core - Final Assessment Psychosocial - Initial Assess Psychosocial - 30-Day Assess Psychosocial - 60-Day Assess - VIsit Date of Eval: 04/08/22 Session #:: 16 Psychosocial - 90-Day Assess Psychosocial - Final Assessmen Patient Health Questionnaire 60-Day Re-eval Assessment 1. Little interest or pleasure in doing things: Not at all 2. Feeling down, depressed, or hopeless: Not at all 3. Trouble falling or staying asleep, or sleeping too much: Several days 4. Feeling tired or having little energy: Several days 5. Poor appetite or overeating: Not at all 6. Feeling bad about yourself -- or that you are a failure or have let yourself or your family down: Not at all 7. Trouble concentrating on things, such as reading the newspaper or watching television: Not at all 8. Moving or speaking so slowly that other people could have noticed. Or the opposite - being so fidgety or restless that you have been moving around a lot more than usual: Not at all 9. Thoughts that you would be better off , or of hurting yourself in some way: Not at all How difficult have these problems made it for you to do your work, take care of things at home, or get along with other people?: Not difficult at all Total Score: 2 Self-Efficacy 60-Day Re-eval Assessment We would like to know how confident you are in doing certain activities. Please select your confidence level for:: Select your confidence level for the following using the scale 1-10 where 1 is not at all confident and 10 is totally confident. Your score is the average of all 6 responses. Fatigue: How confident are you that you can keep the fatigue caused by your disease from interfering with the things you want to do? Select Number: 10 Physical Discomfort or Pain: How confident are you that you can keep the physical discomfort or pain of your disease from interfering with the things you want to do? Select Number: 10 Emotional Distress: How confident are you that you can keep the emotional distress caused by your disease from interfering with the things you want to do? Select Number: 10 Other Symptoms or Health Problems: How confident are you that you can keep other symptoms or health problems from interfering with the things you want to do? Select Number: 10 Different Tasks and Activities: How confident are you that you can do the different tasks and activities needed to manage your health condition so as to reduce your need to see a doctor? Select Number: 10 Medication: How confident are you that you can do things other than just taking medication to reduce how much your illness affects your everyday life? Select Number: 10 Total Score:: 10 Nutrition Survey
[2022-04-08 11:34] VITALS: BP 132/68; BMI 30.9
== END 2022-04-08 23:59 ==
LOC: CR 08:00
PROVIDERS: PCP Family Medicine; Referring Provider Internal Medicine Cardiovascular Disease; Visit Provider Internal Medicine Cardiovascular Disease
DX: I25.10 Atherosclerotic heart disease of native coronary artery without angina pectoris (principal); I25.2 Old myocardial infarction; Z95.5 Presence of coronary angioplasty implant and graft
CPT/HCPCS: 93798

== ENCOUNTER 2022-05-09 08:00 | Outpatient (RCR) | payer OTHER, SELFPAY ==
[2022-04-09 00:38] VITALS: BP 132/68
--- NOTE | 2022-05-06 11:10 | CR.ITP_ITS ---
Diagnosis Exercise - 90-day Assessment - Visit Date of Eval: 05/06/22 Session #:: 33 - Physician Prescribed Exercise Modalities: Treadmill, NuStep Frequency: 3x/week for 12 weeks [36 sessions] Intensity: 60-80% of age predicted maximum heart rate reserve Current METSs:: 5 Target Heart Rate:: 100-131 Current RPE:: 13-15 Maximum Excercise HR:: 86 Resting Blood Pressure: 122/56 Maximum Exercise Blood Pressure: 132/48 EKG Type: NSR 1st degree AVB with rare PAC's - Outcomes & Goals Goals:: Verbalizes understanding of THR, RPE & goal METS by session 6, Documents in home exercise log/reports 30 min aerobic 5 day/wk by DC, Demonstrates accurate pulse taking by DC, Other additional outcome/goals: see below - Intervention & Plan Exercise Program Goals: Instruct on personal THR & RPE, Instruct on MET level & personal MET goal, Show patient to take own pulse /validate performance until accurate, Instruct on home exercise, Other additional plan/int - 30-day Reassessments 30 day Reassessments:: Progressing - THR explained - Physical Activity Home Exercise Physical Activity - Home Exercise: Safe Exercise, Warm-up, Self-monitoring, Cool-Down, Home Exercise > 30 min Daily, Sitting Time <3 hours/daily - Outcomes & Goals Outcomes/Goals: Demonstrates correct Warm-up/exercise Cool-Down (S3) if = 2.5 METs, Verbalizes symptoms of exercise intolerance by Session 3 (S3), Demonstrate safe equipment use (S3) & follows exercise prescrition (6), Other: See below - Intervention & Plan Plan/Intervention: Instruct warm-up & cool-down if exercising at > 2 METs, Instruct on symptoms of exercise intolerance & actions to take, Instruct & monitor on saf, Assess intial functional capacity & safety risk, Other See below - 30-day Reassessments 30 day Reassessments:: Progressing - warm up explained Nutrition - Initial Assessment Nutrition - 30-Day Assessment Nutrition - 60-Day Assessment Nutrition - 90-Day Assessment - Program Goals Nutrition Program Goals: LDL <100 optimal. 100 - 129 Near optimal. 130 - 159 Borderline High. 160 - 189 High. Total Cholesterol <200 desirable. 200 - 239 Borderline High. >/= 240 High. HDL < 40 Low >/=60 High. Triglycerides <150 desirable. <199 optimal. VlDL 5 - 40. HgbA1C <7%. BMI <25 Patient has diagnosis of Hyperlipidemia (ICD E78)?: Yes - Visit Date of Assessment:: 05/06/22 Session #:: 33 - Cholesterol/Lipids (Other Core Measures) Determine presence & major risk factors that modify LDL goal: Cigarette smoking, Hypertension or hypertensive medication, Low HDL cholesterol <40 mg/dL*, Family history of premature CHD in Male < 55 years: female <65 yearsFa, Age men > 45 years; women >/= 55 years Outcomes/Goals: Pt IDs own risk factors & lifestyle modifications by Session 10, Verbalizes symptoms of angina & response by session 3., Pt independently manages, Other Additional Outcomes/Goals: Intervention/Plan: Advocate for lipid panel cholesterol medication if applicable, Instruct on personal lipid levels & lipid goals/NCEP guidelines, Instruct on cholesterol, Other additional plan/int 30-day Reassessments:: Progressing - bloodwork encouraged - Diabetes (Other Core Measures) Diabetes Type: Diagnosis Type II ICD-10 E11 Non-Insulin Dependent?: Yes Do you monitor your blood sugar at home?: Yes Referral to Diabetic Clinic:: No 30-day Reassessments:: Progressing - encouraged to do bloodwork - Weight Mgt (Other Care) Height: 6 ft 3 in Weight:: 112.945 kg BMI: 31.1 Diagnosis Overweight/Obesity BMI> 30% ICD-10 E66: Yes Diagnosis High BMI/Morbid Obesity BMI> 35% ICD-10 Z68: No Outcomes/Goals: Pt sets, maintains & shows weight loss goal & trend during rehab, Other additional outcomes/goals Intervention/Plan: Instruct on ideal BMI & set weight loss goal w/patient, Assist pt to ID & incorporate diet changes for weight loss by S9, Refer to Structured Weight Loss program as appropriate, Encourage goal of using 250- 300dcal per session for weight loss, Other additional plan/interventions 30 day Reassessments:: 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 - Healthy Eating Habits Will attend diet classes:: Yes Outcomes/Goals:: Consume diet rich in vegs,fruits,whole grain/high fiber,fish,lean meat, Limit sat/trans fats,cholesterol & added salts & sugars, Other additional outcome/goals: Intervention/Plan:: Assess current eating habits, Other Additional plan/interventions 30-day Reassessments:: 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 - 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 Nutrition - Final Assessment Core - Initial Assessment Core - 30-Day Assessment Core - 60-Day Assessment Core - 90 Day Assessment - Visit Date of Eval: 05/06/22 Session #:: 33 - Medication Compliance Preventative Medication(s):: Aspirin, Clopidogrel/P2Y12 inhibit, Statin/lipid, Beta noris H/O mental health issues: depression, anxiety, or addiction?: No Doesn?t believe in the benefits of treatment?: No Believes medications are unnecessary or harmful?: No Has a concern about medication side effects?: No Expresses concern over the cost of medications?: No Outcomes/Goals: Verbalizes medications,desired effect & common side effects @ DC, Pt self-reports following medication regimen, Keeps card in wallet w/medications listed by DC, Other additional outcome/goals: Interventions/plans: Instruct on medication effects & side effects, Review medication list w/patient every two weeks, Instruct importance of taking meds as ordered & assist problem solving, Other additional 30-day Reassessments:: Progressing - encouraged to take meds - Tobacco Use Tobacco Use: Non-smoker - Hypertension Hypertension Diagnosis:: Hypertension ICD-10 I10 Resting Blood Pressure:: 122/56 [place] [employer] Hypertension Guidelines: [place] [employer] Hypertension Guidelines. Normal BP Less than 120/80. Elevated BP 120/80. Hypertension Stage 1: BP 130-139/80-89. Hypertesnion Stage 2: BP 140 or higher/90 or higher. Hypertension Crisis: BP higher than 180/120 Peak Exercise Blood Pressure:: 132/48 Outcomes/Goals: Able to verbalize/achieve optimal blood pressure <130/80, Incorporates diet changes & exercise for blood pressure control by DC, Other additional outcomes/goals Interventions/plan: Instruct on optimal blood pressure, hypertension & medications, Instruct on effects of sodium, alcohol, stress, exercise &hypertension, Other additional plan/interventions 30 day Reassessments:: Progressing - Tobacco Cessation Referral Smoking Cessation Referral:: No Individual Education/Counseling:: No Education Schedule Given:: Yes Core - Final Assessment Psychosocial - Initial Assess Psychosocial - 30-Day Assess Psychosocial - 60-Day Assess Psychosocial - 90-Day Assess - VIsit Date of Eval: 05/06/22 Session #:: 33 Not Applicable: No Psychosocial - Final Assessmen Patient Health Questionnaire 90-Day Re-eval Assessment 1. Little interest or pleasure in doing things: Not at all 2. Feeling down, depressed, or hopeless: Not at all 3. Trouble falling or staying asleep, or sleeping too much: Several days 4. Feeling tired or having little energy: Several days 5. Poor appetite or overeating: Not at all 6. Feeling bad about yourself -- or that you are a failure or have let yourself or your family down: Not at all 7. Trouble concentrating on things, such as reading the newspaper or watching television: Not at all 8. Moving or speaking so slowly that other people could have noticed. Or the opposite - being so fidgety or restless that you have been moving around a lot more than usual: Not at all 9. Thoughts that you would be better off , or of hurting yourself in some way: Not at all How difficult have these problems made it for you to do your work, take care of things at home, or get along with other people?: Not difficult at all Total Score: 2 Self-Efficacy 90-Day Re-eval Assessment We would like to know how confident you are in doing certain activities. Please select your confidence level for:: Select your confidence level for the following using the scale 1-10 where 1 is not at all confident and 10 is totally confident. Your score is the average of all 6 responses. Fatigue: How confident are you that you can keep the fatigue caused by your disease from interfering with the things you want to do? Select Number: 10 Physical Discomfort or Pain: How confident are you that you can keep the physical discomfort or pain of your disease from interfering with the things you want to do? Select Number: 10 Emotional Distress: How confident are you that you can keep the emotional distress caused by your disease from interfering with the things you want to do? Select Number: 10 Other Symptoms or Health Problems: How confident are you that you can keep other symptoms or health problems from interfering with the things you want to do? Select Number: 10 Different Tasks and Activities: How confident are you that you can do the different tasks and activities needed to manage your health condition so as to reduce your need to see a doctor? Select Number: 10 Medication: How confident are you that you can do things other than just taking medication to reduce how much your illness affects your everyday life? Select Number: 10 Total Score:: 10 Nutrition Survey
[2022-05-06 11:23] VITALS: BP 122/56; BP 132/48; BMI 31.1
== END 2022-05-09 23:59 ==
LOC: CR 08:00
PROVIDERS: PCP Family Medicine; Referring Provider Internal Medicine Cardiovascular Disease; Visit Provider Internal Medicine Cardiovascular Disease
DX: I25.10 Atherosclerotic heart disease of native coronary artery without angina pectoris (principal); I25.2 Old myocardial infarction; Z95.5 Presence of coronary angioplasty implant and graft
CPT/HCPCS: 93798

== ENCOUNTER 2022-05-30 08:00 | Outpatient (RCR) | payer OTHER, SELFPAY ==
[2022-05-06 11:23] VITALS: BMI 31.1
[2022-05-10 00:17] VITALS: BP 122/56; BP 132/48
--- NOTE | 2022-06-06 07:03 | CR.ITP_ITS ---
Diagnosis Exercise - Final/Discharge - Visit Date of Eval: 06/06/22 Session #:: 34 Comments:: Patient was not compliant with regular attendance in CR. His overall Compliance was 72% attending 26 of his scheduled 36 sessions. - Physician Prescribed Exercise Modalities: Treadmill, Airdyne, NuStep Frequency: 2x/week for 18 weeks [36 sessions] Intensity: 60-80% of age predicted maximum heart rate reserve Duration: 30 - 45 minutes Current METSs:: 5.0 max. level Current RPE:: 14 Maximum Excercise HR:: 101 Resting Blood Pressure: 148/84 Maximum Exercise Blood Pressure: 160/72 EKG Type: NSR to sinus tach, 1st degree AVB, PVCs and PACs noted - Outcomes & Goals Goals:: Verbalizes understanding of THR, RPE & goal METS by session 6, Documents in home exercise log/reports 30 min aerobic 5 day/wk by DC, Demonstrates accurate pulse taking by DC - Intervention & Plan Exercise Program Goals: Instruct on personal THR & RPE, Instruct on MET level & personal MET goal, Show patient to take own pulse /validate performance until accurate, Instruct on home exercise - 30-day Reassessments 30 day Reassessments:: Met - Physical Activity Home Exercise Physical Activity - Home Exercise: Safe Exercise, Warm-up, Self-monitoring, Cool-Down, Home Exercise > 30 min Daily, Sitting Time <3 hours/daily - Outcomes & Goals Outcomes/Goals: Demonstrates correct Warm-up/exercise Cool-Down (S3) if = 2.5 METs, Verbalizes symptoms of exercise intolerance by Session 3 (S3), Demonstrate safe equipment use (S3) & follows exercise prescrition (6) - Intervention & Plan Plan/Intervention: Instruct warm-up & cool-down if exercising at > 2 METs, Instruct on symptoms of exercise intolerance & actions to take, Instruct & monitor on saf, Assess intial functional capacity & safety risk - 30-day Reassessments 30 day Reassessments:: Met Nutrition - Initial Assessment Nutrition - 30-Day Assessment Nutrition - 60-Day Assessment Nutrition - 90-Day Assessment Nutrition - Final Assessment - Program Goals Nutrition Program Goals: LDL <100 optimal. 100 - 129 Near optimal. 130 - 159 Borderline High. 160 - 189 High. Total Cholesterol <200 desirable. 200 - 239 Borderline High. >/= 240 High. HDL < 40 Low >/=60 High. Triglycerides <150 desirable. <199 optimal. VlDL 5 - 40. HgbA1C <7%. BMI <25 Patient has diagnosis of Hyperlipidemia (ICD E78)?: Yes - Visit Date of Assessment:: 06/06/22 Session #:: 34 - last drawn 11/26/2020 - Cholesterol/Lipids (Other Core Measures) Determine presence & major risk factors that modify LDL goal: Hypertension or hypertensive medication, Family history of premature CHD in Male < 55 years: female <65 yearsFa, Age men > 45 years; women >/= 55 years Outcomes/Goals: Pt IDs own risk factors & lifestyle modifications by Session 10, Verbalizes symptoms of angina & response by session 3., Pt independently manages Intervention/Plan: Instruct on personal lipid levels & lipid goals/NCEP guidelines, Instruct on cholesterol Referral to dietitian:: No 30-day Reassessments:: Progressing - Diabetes (Other Core Measures) Diabetes Type: Diagnosis Type II ICD-10 E11 Insulin dependent injection/pump?: Yes Non-Insulin Dependent?: Yes Do you monitor your blood sugar at home?: Yes Outcomes/Goals:: Able to state symptoms of, Able to state, Able to state Intervention/Plan:: Instruct on, Instruct on 30-day Reassessments:: Met Reassessment Notes & Comments:: Patient monitors and controls his BS . - Weight Mgt (Other Care) Not Applicable: No Height: 6 ft 3 in Weight:: 249 lb BMI: 31.1 Diagnosis Overweight/Obesity BMI> 30% ICD-10 E66: Yes Diagnosis High BMI/Morbid Obesity BMI> 35% ICD-10 Z68: No Outcomes/Goals: Pt sets, maintains & shows weight loss goal & trend during rehab Intervention/Plan: Instruct on ideal BMI & set weight loss goal w/patient, Assist pt to ID & incorporate diet changes for weight loss by S9, Encourage goal of using 250-300dcal per session for weight loss 30 day Reassessments:: Progressing - Healthy Eating Habits Will attend diet classes:: Yes Outcomes/Goals:: Consume diet rich in vegs,fruits,whole grain/high fiber,fish,lean meat, Limit sat/trans fats,cholesterol & added salts & sugars Intervention/Plan:: Assess current eating habits 30-day Reassessments:: Not Met - Paitent has not made any effort to lose weight. CR reinforced importance of weight loss control, his DM Type II and heart risk. - Education Gave educational materials for:: Signs & symptoms of hypoglycemia, Signs & symptoms of hyperglycemia, Relate diabetes to coronary artery disease, Healthy eating Core - Initial Assessment Core - 30-Day Assessment Core - 60-Day Assessment Core - 90 Day Assessment Core - Final Assessment - Visit Date of Eval: 06/06/22 Session #:: 34 - Medication Compliance Preventative Medication(s):: Aspirin, Clopidogrel/P2Y12 inhibit, Statin/lipid, Beta noris H/O mental health issues: depression, anxiety, or addiction?: No Doesn?t believe in the benefits of treatment?: No Believes medications are unnecessary or harmful?: No Has a concern about medication side effects?: No Expresses concern over the cost of medications?: No Outcomes/Goals: Verbalizes medications,desired effect & common side effects @ DC, Pt self-reports following medication regimen, Keeps card in wallet w/medications listed by DC Interventions/plans: Instruct on medication effects & side effects, Review medication list w/patient every two weeks, Instruct importance of taking meds as ordered & assist problem solving 30-day Reassessments:: Met - Tobacco Use Tobacco Use: Non-smoker - Hypertension Hypertension Diagnosis:: Hypertension ICD-10 I10 Resting Blood Pressure:: 148/84 [place] [employer] Hypertension Guidelines: [place] [employer] Hypertension Guidelines. Normal BP Less than 120/80. Elevated BP 120/80. Hypertension Stage 1: BP 130-139/80-89. Hypertesnion Stage 2: BP 140 or higher/90 or higher. Hypertension Crisis: BP higher than 180/120 Peak Exercise Blood Pressure:: 160/72 Outcomes/Goals: Able to verbalize/achieve optimal blood pressure <130/80, Incorporates diet changes & exercise for blood pressure control by DC Interventions/plan: Instruct on optimal blood pressure, hypertension & medications, Instruct on effects of sodium, alcohol, stress, exercise &hypertension 30 day Reassessments:: Progressing - Tobacco Cessation Referral Smoking Cessation Referral:: No Individual Education/Counseling:: No Education Schedule Given:: Yes Psychosocial - Initial Assess Psychosocial - 30-Day Assess Psychosocial - 60-Day Assess Psychosocial - 90-Day Assess Psychosocial - Final Assessmen - VIsit Date of Eval: 06/06/22 Session #:: 34 Not Applicable: Yes History of previous Mental disease:: No - Psychosocial Test Tool Used:: [employer] QOL Cardiac, PHQ-9 Questionnaire phq-9 Severity: Severity. 1-4 Minimal Depression. 5-9 Mild Depression. 10-14 Moderate Depression. 15-19 Moderately Sever Depression. 20-27 Severe Depression. Rule: - Referral to Behavioral Health PS - Interventions: Yes Attend Stress Management Classes, No Referral to Behavioral Health if PHQ-9 score >9:, No Referral to [facility], No Referral to Physician if PHQ-9 if score is 5-9: - Outcomes/Goals: See list Psychosocial Outcomes/Goals:: ID's personal stressors & 2 strategies to manage stress by discharge - Intervention/Plan: See List Interventions/Plan:: Assess stressors,coping strategies & signs of derpression on admission, Instruct/assist pt to develop coping & personal stress Mgt strategies, Instruct patient to recognize signs & symptoms of depression, Instr uct patient to recog - 30-day Reassessments: 30 day Reassessments:: Met Patient Health Questionnaire Discharge Assessment 1. Little interest or pleasure in doing things: Not at all 2. Feeling down, depressed, or hopeless: Not at all 3. Trouble falling or staying asleep, or sleeping too much: Several days 4. Feeling tired or having little energy: Not at all 5. Poor appetite or overeating: Not at all 6. Feeling bad about yourself -- or that you are a failure or have let yourself or your family down: Not at all 7. Trouble concentrating on things, such as reading the newspaper or watching television: Not at all 8. Moving or speaking so slowly that other people could have noticed. Or the opposite - being so fidgety or restless that you have been moving around a lot more than usual: Not at all 9. Thoughts that you would be better off , or of hurting yourself in some way: Not at all How difficult have these problems made it for you to do your work, take care of things at home, or get along with other people?: Not difficult at all Total Score: 1 Self-Efficacy Discharge Assessment We would like to know how confident you are in doing certain activities. Please select your confidence level for:: Select your confidence level for the following using the scale 1-10 where 1 is not at all confident and 10 is totally confident. Your score is the average of all 6 responses. Fatigue: How confident are you that you can keep the fatigue caused by your disease from interfering with the things you want to do? Select Number: 10 Physical Discomfort or Pain: How confident are you that you can keep the physical discomfort or pain of your disease from interfering with the things you want to do? Select Number: 10 Emotional Distress: How confident are you that you can keep the emotional distress caused by your disease from interfering with the things you want to do? Select Number: 10 Other Symptoms or Health Problems: How confident are you that you can keep other symptoms or health problems from interfering with the things you want to do? Select Number: 10 Different Tasks and Activities: How confident are you that you can do the different tasks and activities needed to manage your health condition so as to reduce your need to see a doctor? Select Number: 10 Medication: How confident are you that you can do things other than just taking medication to reduce how much your illness affects your everyday life? Select Number: 10 Total Score:: 10 Nutrition Survey - Nutrition Survey Discharge Have you lost >10 lbs over the past 2 months without trying?: Yes Are you following a special diet at home for diabetes, low fat, or low salt?: Yes Are you interested in meeting with a dietitian for help understanding your diet?: No Do you eat less than 3 meals a day?: No Do you eat fatty meats (kelley, sausage, ribs, etc), fried foods, desserts, large amounts of salad dressings, margarine, butter, or cheese most days?: No Do you have food allergies? [Enter types in comment field]: No Do you eat in restaurants more than 3 times a week?: No Do you season food with salt, seasoning salt, or garlic salt?: Yes - Encouraged patient to keep added salt out of his diet. Do you used canned, boxed, frozen meals, or soups, seasoning packets?: Yes Total Score:: 4
[2022-06-06 07:17] VITALS: BP 148/84; BP 160/72; BMI 31.1
== END 2022-06-08 23:59 ==
LOC: CR 08:00
PROVIDERS: PCP Family Medicine; Referring Provider Internal Medicine Cardiovascular Disease; Visit Provider Internal Medicine Cardiovascular Disease
DX: I25.10 Atherosclerotic heart disease of native coronary artery without angina pectoris (principal); I25.2 Old myocardial infarction; Z95.5 Presence of coronary angioplasty implant and graft
CPT/HCPCS: 93798

== ENCOUNTER 2022-09-13 13:27 | Day surgery (SDC) | payer OTHER, MEDICARE, SELFPAY ==
[2022-09-13 14:01] VITALS: BP 157/69; PULSE 66; RESP 16; TEMP 36.1; O2SAT 99; BMI 31.2
[2022-09-13] MEDS: Lactated Ringers 1,000 ML 15 ML IV (14:05)
--- NOTE | 2022-09-13 14:07 | PCM.HP.BLA ---
History and Physical Date of Admission: 09/13/22 TOMMY JOSE, is a 67 M who presents to the office today for Follow up visit. Justin established with this clinic through hospitalization with [facility]. He presented to [facility] ED 10.26.21 with epigastric/abdominal pain and emesis. Imaging and biochemical workup preformed and he was discharged home. Presented again 10.29.21 with continued epigastric/abdominal pain and new onset jaundice. Biochemical workup and imaging performed with surgical and gastroenterology consulted same day. Gastroenterology provided care for bile duct obstruction; surgical to proceed with cholecystectomy with intraoperative cholangiogram with possible ERCP if stricture disease present. Cholecystectomy performed 10.30.21 without cholangiogram performed r/t short nature of cystic duct. ERCP performed 11.01.21. He was discharged 11.02.21 CT abd/pel 10.26.21 without acute/chronic remark. 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 Remaining exam without remark. ERCP 11.01.21 with single moderate biliary stricture in lower third of main bile duct, indeterminate; entire main bile duct dilated, uncertain significance; biliary sphincterotomy performed; biliary tree swept with sludge found; one stent (7Fx5cm) placed in CBD. Plan LV 03.31.22: Gastroparesis ? GET and start digestive enzyme Biliary stricture ? needs stent removed GERD ? continue PPI 06.27.22: Needs ERCP scheduled. Needs GET ordered Does not feel he?s doing well today: feels very bloated in his abdomen because of lack of BM in the last 3-4 days. Took a Trulance this morning and has had several movements. Movements do vary and after periods of constipation he will have some diarrhea. Periodically feels as though there is something lodged in his throat and feels this is r/t reflux. Has protonix but does not take this regularly. Continues to have feelings of gastroparesis. ROS Const Constitutional: Positive for fatigue and weakness; No fever(s), frequent falls, headache(s) or weight change ENT ENT: Positive for difficulty swallowing; No headache(s) Cardio Cardiology: Positive for leg pain with exertion Gastro GI: Positive for abdominal pain, bloating, change in bowel habits, constipation, difficulty swallowing, nausea/dyspepsia and vomiting; No diarrhea, heartburn, Vomiting blood/hematemesis or Blood in stool Musc Musculoskeletal: Positive for abnormal gait, joint pain, back pain, joint swelling, muscle cramps, muscle weakness, stiffness, Arthritis, sciatica, restless legs, leg pain at night and leg pain with exertion; No numbness or tingling Skin Skin: No dry skin, lesions, itchy eyes or rash Neuro Neurology: Positive for abnormal gait, weakness, restless legs and Increased tone in limbs; No dizziness, frequent falls, headache(s), numbness, tingling, tremor(s), paralysis or seizures Psych Psychiatric: No anxiety, Positive for depression, No paranoia, No Behavioral Problems, No Compulsive Behavior, No hyperactivity, No inattentiveness, No obsessions/compulsions, Positive for Temper Tantrums and No suicidal ideation Endo Endocrine: Positive for fatigue; No weight change Aller/Imm Allergy/Immunologic: No itchy eyes Chandra/Lymp Hematologic/Lymphatic: No easy bleeding or easy bruising Exam Const General: cooperative and comfortable Nutritional Appearance: average body habitus and well nourished [facility] Head: normal to inspection Ears: hearing grossly normal bilaterally Nose: external nose normal Face and sinus: normal facial exam Mouth: oral mucosae normal Throat: posterior oropharynx normal Eyes General: appearance normal, both eyes and all related structures Neck Neck: normal visual inspection Chest Chest palpation & inspection: normal inspection of the chest and normal palpation of entire chest wall Resp Effort & Inspection: normal respiratory effort Auscultation: Bilateral: Clear to Auscultation Cardio Palpation: normal PMI Rate: regular rate Rhythm: regular rhythm GI Inspection: normal to inspection Auscultation: normal bowel sounds Percussion: normal to percussion Palpation: no hepatosplenomegaly Skin General: no rashes or lesions noted Neuro General: patient alert Extrem General: normal to inspection Psych Affect: normal affect Quality Reporting Tobacco Screening ([facility] 138) Smoking Status: Never smoker Assessment and Plan Assessment and Plan (1) Gastroparesis: ?Status:?Chronic ?Plan: Bloating and abdominal pain likely secondary to gastroparesis.? We will start him on empiric Reglan therapy and also pancreatic enzymes. (2) Biliary stricture: ?Status:?Chronic ?Plan: History is secondary to chronic choledocholithiasis.? Previous stone? Removal.? Recommend to perform ERCP with removal. ? ? ? Orders: Orders Gastric Emptying Study Today K31.84 - Gastroparesis ? I have examined the patient and the H&P has been reviewed. There are no clinical changes since date of exam.
[2022-09-13 14:32] LABS: Bedside Glucose 196 mg/dL (74-106)
--- NOTE | 2022-09-13 15:35 | RAD_ITS ---
EXAM: FL CHOLANGIOGRAPHY AND/OR PANCREATOGRAPHY CLINICAL INDICATION: PAIN TECHNIQUE: Fluoroscopic cholangiogram and/or pancreatography of the right upper quadrant. Fluoroscopic guidance was provided by a physician. This report was created using [employer] report generation technology. IMAGES,TIME , DOSE: 10 fluoroscopic spot images provided, 44.1 seconds, provided dose 21.35 mGy. COMPARISON: None. FINDINGS: GALLBLADDER: Unremarkable. No gallbladder filling defects. BILE DUCTS: Fluoroscopic spot images are provided. There is good opacification of the common duct, without visible filling defect. A sweep of the common duct was apparently performed with balloon. BOWEL: Unremarkable. Injected contrast is identified in the duodenum. RAD/ERCP Biliary Only IMPRESSION: Contrast injections and sweep images. No evidence of retained stone demonstrated on the spot images provided. Electronically Signed: Lory Bernal MD at 9:09 EST ,
--- NOTE | 2022-09-13 15:53 | OP.ERCP_ITS ---
Patient Name: Shane Nguyen Procedure Date: 09/13/2022 3:06 PM Date of : 1955 Age: 67 Procedure: ERCP Indications: Stent removal Providers: Osmin Toth DO Referring MD: Osmin Toth DO Medicines: Monitored Anesthesia Care Patient Profile: This is a 67 year old male. Refer to note in patient chart for documentation of history and physical. Patient has symptoms of chronic right upper quadrant abdominal pain, acute jaundice and chronic nausea. He is status post ERCP for stent and ERCP for stone removal. Complications: No immediate complications. Procedure: Pre-Anesthesia Assessment: - Prior to the procedure, a History and Physical was performed, and patient medications and allergies were reviewed. The patient is competent. The risks and benefits of the procedure and the sedation options and risks were discussed with the patient. All questions were answered and informed consent was obtained. Patient identification and proposed procedure were verified by the physician in the pre-procedure area. Mental Status Examination: alert and oriented. Airway Examination: normal oropharyngeal airway and neck mobility. Respiratory Examination: clear to auscultation. CV Examination: normal. Prophylactic Antibiotics: The patient does not require prophylactic antibiotics. Prior Anticoagulants: The patient has taken no previous anticoagulant or antiplatelet agents. ASA Grade Assessment: II - A patient with mild systemic disease. After reviewing the risks and benefits, the patient was deemed in satisfactory condition to undergo the procedure. The anesthesia plan was to use general anesthesia. Immediately prior to administration of medications, the patient was re-assessed for adequacy to receive sedatives. The heart rate, respiratory rate, oxygen saturations, blood pressure, adequacy of pulmonary ventilation, and response to care were monitored throughout the procedure. The physical status of the patient was re-assessed after the procedure. After obtaining informed consent, the scope was passed under direct vision. Throughout the procedure, the patient's blood pressure, pulse, and oxygen saturations were monitored continuously. The Duodenoscope was introduced through the mouth, and advanced to the duodenum and used to inject contrast into the bile duct. The ERCP was accomplished without difficulty. The patient tolerated the procedure well. Scope In: 3:33:37 PM Scope Out: 3:48:03 PM Total Procedure Duration Time 0 hours 14 minutes 26 seconds Findings: The cardroom supervisor film was normal. The esophagus was successfully intubated under direct vision. The scope was advanced to a normal major papilla in the descending duodenum without detailed examination of the pharynx, larynx and associated structures, and upper GI tract. The upper GI tract was grossly normal. The bile duct was deeply cannulated with the short-nosed traction sphincterotome. Contrast was injected. I personally interpreted the bile duct images. There was brisk flow of contrast through the ducts. Image quality was excellent. Contrast extended to the entire biliary tree. Opacification of the entire biliary tree except for the gallbladder and main bile duct was successful. The maximum diameter of the ducts was 10 mm. The lower third of the main bile duct contained three stones, the largest of which was 6 mm in diameter. The main bile duct was moderately dilated, with a stone causing an obstruction. The largest diameter was 10 mm. A cholecystectomy had been performed. A straight Roadrunner wire was passed into the biliary tree. A 5 mm biliary sphincterotomy was made with a monofilament traction (standard) sphincterotome using ERBE electrocautery. The sphincterotomy oozed blood. The biliary tree was swept with a 15 mm balloon starting at the bifurcation. Sludge was swept from the duct. All stones were removed. One stent was removed from the biliary tree using a snare and sent for cytology. The stent was found to be partially occluded via the water column test. Impression: - The entire main bile duct was moderately dilated, with a stone causing an obstruction. - The patient has had a cholecystectomy. - Choledocholithiasis was found. Complete removal was accomplished by biliary sphincterotomy and balloon extraction. - A biliary sphincterotomy was performed. - The biliary tree was swept. - One stent was removed from the biliary tree. Procedure Code(s): --- Professional --- 31659, Endoscopic retrograde cholangiopancreatography (ERCP); with removal of foreign body(s) or stent(s) from biliary/pancreatic duct(s) 98110, Endoscopic retrograde cholangiopancreatography (ERCP); with removal of calculi/debris from biliary/pancreatic duct(s) 78986, Endoscopic retrograde cholangiopancreatography (ERCP); with sphincterotomy/papillotomy 62769, 26, Endoscopic catheterization of the biliary ductal system, radiological supervision and interpretation CPT copyright 2017 [employer]. All rights reserved. The codes documented in this report are preliminary and upon supervisor toy assembly review may be revised to meet current compliance requirements. Osmin Toth DO 09/13/2022 3:52:47 PM This report has been signed electronically. Number of Addenda: 0 Note Initiated On: 09/13/2022 3:06 PM
--- NOTE | 2022-09-13 15:53 | OP.CCLET_ITS ---
09/13/2022 Yeimi Ndiaye Do Re : ERCP procedure for Shane Nguyen Dear Zelda This procedure was performed on Tuesday, September 13, 2022. My impressions and recommendations are as follows: Impressions : - The entire main bile duct was moderately dilated, with a stone causing an obstruction. - The patient has had a cholecystectomy. - Choledocholithiasis was found. Complete removal was accomplished by biliary sphincterotomy and balloon extraction. - A biliary sphincterotomy was performed. - The biliary tree was swept. - One stent was removed from the biliary tree. Recommendations : My findings are described in the full procedure note, which is enclosed. If I can be of further assistance, please feel free to contact me at . Sincerely, Osmin Toth, 09/13/2022 3:52:47 PM This report has been signed electronically.
[2022-09-13 16:01] VITALS: BP 115/60; BP 157/69; PULSE 66; RESP 16; TEMP 36.1; O2SAT 98
[2022-09-13 16:15] VITALS: BP 128/72; BP 157/69; PULSE 66; RESP 16; O2SAT 96
[2022-09-13 16:26] LABS: Bedside Glucose 181 mg/dL (74-106)
[2022-09-13 16:30] VITALS: BP 143/73; BP 157/69; PULSE 65; RESP 16; O2SAT 97
[2022-09-13 16:48] VITALS: BP 140/72; BP 157/69; PULSE 60; RESP 16; TEMP 36.4; O2SAT 98
[2022-09-13 17:12] VITALS: BP 157/69
== END 2022-09-13 17:23 | disposition home or self-care (01) ==
LOC: EN 13:30 → AC 13:31
PROVIDERS: PCP Family Medicine; Referring Provider Family Medicine; Visit Provider Internal Medicine Gastroenterology
PROC: (CPT 43260; principal; 2022-09-13 14:25)
DX: K80.51 Calculus of bile duct without cholangitis or cholecystitis with obstruction (principal); E11.42 Type 2 diabetes mellitus with diabetic polyneuropathy; Z79.4 Long term (current) use of insulin; K31.84 Gastroparesis; K83.8 Other specified diseases of biliary tract; I25.10 Atherosclerotic heart disease of native coronary artery without angina pectoris; E78.00 Pure hypercholesterolemia, unspecified; I10 Essential (primary) hypertension; I25.2 Old myocardial infarction; Z95.1 Presence of aortocoronary bypass graft; Z95.5 Presence of coronary angioplasty implant and graft; Z79.82 Long term (current) use of aspirin; Z79.899 Other long term (current) drug therapy; Z79.01 Long term (current) use of anticoagulants; Z86.73 Personal history of transient ischemic attack (TIA), and cerebral infarction without residual deficits
CPT/HCPCS: 43275; 43264; 43262; 74328; 76000; 82962; 93005; J7120; J2405

== ENCOUNTER → 2022-10-03 | Outpatient (CLI) | payer OTHER, MEDICARE, SELFPAY ==
[2022-10-03 11:07] LABS: AST(SGOT) 40 U/L (15-37); Alanine Aminotransfer ALT/SGPT 52 U/L (16-61); Albumin, Serum 3.4 g/dL (3.2-5.0); Alkaline Phosphatase 96 U/L (45-117); Bilirubin, Direct 0.12 mg/dL (0.00-0.30); Cholesterol 117 mg/dL (200); Globulin 3.6 g/dL (2.2-4.2); High Density Lipoprotein 31 mg/dL; Triglycerides 157 mg/dL; Very Low Density Lipoprotein 31 mg/dL (5-40)
== END | disposition home or self-care (01) ==
LOC: MTLAB 08:45
PROVIDERS: PCP Family Medicine; Referring Provider Nurse Practitioner Family; Visit Provider Nurse Practitioner Family
DX: E78.5 Hyperlipidemia, unspecified (principal); Z95.1 Presence of aortocoronary bypass graft
CPT/HCPCS: 36415; 80061; 80076

== ENCOUNTER 2022-10-07 08:12 | Outpatient (RCR) | payer OTHER, MEDICARE, SELFPAY ==
[2022-10-07 08:40] VITALS: BP 118/61; PULSE 73; RESP 20; TEMP 35.6
--- NOTE | 2022-10-07 13:20 | HP.PCM_ITS ---
History of Present Illness Date of Service: 10/07/22 Chief Complaint: burn to right ring finger History of Wound: Shane is a pleasant 67 yo gentleman that present to the wound center for evaluation and treatment of a burn wound to his right 4th finger which occurred approx. 3 weeks ago. He was making spaghetti sauce and went to remove the lid and sauce splashed on his hand. The wound was full thickness into the subcutaneous tissue but no visualized tendon or bone. He went to urgent care and was prescribed Keflex and was applying Bactroban to the wound. He has been covering it with bandaids but having a difficult time with finding a way to keep bandages in place. 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 Due to this history, his PCP referred him to wound center for evaluation and treatment. He has not had much drainage from the wound. He reports that his last A1C within the last 3 months was 8.1%. He has a difficult time controlling his DM because of gastroparesis. He denies odor, increased drainage or erythema. He does have an [id number] PMH of multiple comorbid conditions including CAD, DM and a h/o stroke. 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 GERD (gastroesophageal reflux disease) H/O emotional problems Heart disease High cholesterol History of back problems History of echocardiogram History of heart attack History of stress test HTN (hypertension) Insulin dependent diabetes mellitus Irritable bowel disease Kidney stones Mirizzi's syndrome Neuropathy Non-smoker Restless legs Rheumatoid arthritis Stroke Vascular disease Wears glasses Home Medications gabapentin 600 mg tablet 600 mg PO DAILY pain 05/31/14 [History Last Taken 02/25/17] clopidogrel 75 mg tablet 75 mg PO DAILY blood thinner 02/25/17 [History Last Taken 09/10/22] oxycodone-acetaminophen 5 mg-325 mg tablet 1 tab PO Q8H PRN PRN Pain 02/25/17 [History Last Taken 02/24/17] lidocaine 5 % topical patch (Lidoderm) 1 patch topical DAILY PRN Back Pain 10/28/21 [History Last Taken Unknown] aspirin 81 mg tablet,delayed release 81 mg PO DAILY@0800 #0 tabs 01/27/22 [Rx Last Taken 09/10/22] fexofenadine 180 mg tablet 180 mg PO DAILY PRN allergies 03/04/22 [History Last Taken Unknown] insulin aspart U-100 100 unit/mL (3 mL) subcutaneous pen (Novolog FlexPen U-100 Insulin aspart) 15 unit subcut TIDCM DM 03/04/22 [History Last Taken Unknown] insulin glargine 100 unit/mL (3 mL) subcutaneous pen 50 unit subcut BID DM 03/04/22 [History Last Taken 09/13/22 09:00] rosuvastatin 40 mg tablet 40 mg PO DAILY 03/04/22 [History Last Taken Unknown] pantoprazole 40 mg tablet,delayed release (Protonix) 40 mg PO DAILY PRN GERD #90 tabs 09/07/22 [Rx Last Taken Unknown] carvedilol 6.25 mg tablet 6.25 mg PO BID #180 tabs 09/30/22 [Rx Last Taken Un known] Allergy/AdvReac Type Severity Reaction Status Date / Time aripiprazole [From Abilify] Allergy Mild FELT POORLY Verified 10/07/22 08:56 atorvastatin [From Lipitor] Allergy muscle Verified 10/07/22 08:56 aches nabumetone [From Relafen] Allergy GI Verified 10/07/22 08:56 Family History Mother Heart disease Father Heart disease Surgical History H/O knee surgery History of cardiac catheterization History of coronary artery bypass graft x 3 History of laparoscopic cholecystectomy Hx of tonsillectomy Presence of internal carotid stent (~2018) Stented coronary artery (01/26/22) Vertebral artery stenosis Social History household members: spouse Smoking Status: Never smoker alcohol intake: never substance use type: does not use Vital Signs Vital Signs Vital Signs: 10/07/22 08:40 Temperature 96.1 F L Temperature Source Oral Pulse Rate 73 Respiratory Rate 20 H Blood Pressure 118/61 Blood Pressure Mean 80 Blood Pressure Source Monitor Physical Exam Const alert, oriented x3 and no apparent distress General Appearance: cooperative and comfortable HEENT normocephalic and head/scalp atraumatic Resp normal respiratory effort Effort and Inspection: able to speak in complete sentences Cardio regular rate and regular rhythm Skin Wounds: wounds noted Wound Narrative: as in clinical panel Psych mental status grossly normal, thought process normal, cooperative and affect normal Debridement Note Debridement Note Wound debrided: Right 4th finger Laterality: Right Type of Debridement: Excisional debridement Anesthesia Used: 4% Lidocaine Solution and 5% Lidocaine Gel Depth: Down to and including healthy tissue and in the subcutaneous layer Percentage of wound debrided: 100 Instrument Used: #15 blade and Forceps Tissue Removed: Yellow slough, devitalized tissue Severity: Fat Layer Exposed Amount of bleeding with debridement: Mild Bleeding Controlled with: Compression and gauze Patient tolerated procedure: Patient tolerated procedure well Post-Debridement Measurements and Additional Note: Post-Debridement Measurements/Treatment MANA - Nurse 1 - General Ulcer Assessment Start: 10/07/22 08:28 Freq: Status: Active Protocol: LULI Activity Type Activity Date Activity User E-sign Co-sign Detail Recorded Client Recorded Date Recorded By Document 10/07/22 08:40 DL [id number] 10/07/22 08:53 DL 10/07/22 08:40 - Today's Visit Information Type of service Initial Visit Arrival Mode Ambulatory Transfer Assistance None Patient Identification Verified (Name & Yes ) Patient Requires Transmission-Based No Precautions Vital Signs Temperature (97.8 F-99.1 F) 96.1 F L Temperature Source Oral Pulse Rate (60-100) 73 Pulse Location Monitor Respiratory Rate (12-18) 20 H Blood Pressure (90/60-120/80) 118/61 Blood Pressure Mean 80 Source Monitor Pain Scale: 0-10 Numeric Is Patient Pain Free? Yes Communication Assessment Preferred language [place] Able to Read Yes Able to Write Yes Communication Tools None Right Hearing Abillity Use of Hearing Aid Left Hearing Abillity Use of Hearing Aid Visual Assistive Devices Glasses Teaching Assessment Preferences Verbal,Written, Demonstration Barriers to Learning None Readiness To Learn Good Willingness to Engage in Self Management Med Activies Readiness to Engage in Self Management Med Activities Anxiety Level Calm Cooperation Cooperative Perception Coherent Interest in Health Problem Asks Questions Education Importance Acknowledges Need Does Patient Smoke tobacco or other No substances Smoking Status Never smoker Is Patient Diabetic Yes Functional Assessment Recent Decline in Ability to Perform Denies Any Declines Culture/Shinto/Medical Authorization Specialist Cultural/Shinto Needs that may affect No Treatment Plan Would you allow our hospital clinical resource director to No meet you for the purpose of spiritual/ emotional support? Medical Authorization Specialist to contact place of orthodoxy No Teaching: Wound Center Dressing Your Wound -Person Taught Patient Diagnostic Tests Ordered -Person Taught Patient *Welcome to the Wound Center -Person Taught Patient - Nurse 1 - General Ulcer Measurement Start: 10/07/22 08:28 Freq: Status: Active Protocol: Activity Type Activity Date Activity User E-sign Co-sign Detail Recorded Client Recorded Date Recorded By Document 10/07/22 08:40 DL [id number] 10/07/22 08:53 DL 10/07/22 08:40 Wound Center Nurse 1 #1 R 4th finger -Current Size (cm) - Length 0.8 -Current Size (cm) - Width 0.7 -Current Size (cm) - Depth 0.1 -Total Square Cm 0.56 -Photo Taken Yes -Exudate Amt Small -Exudate Type Serosanguineous -Wound Margin Thickened -Granulation Amt Small (1-33%) -Granulation Quality [place] -Necrosis Amt Small (1-33%) -Necrotic Tissue Type Adherent Slough -Structure Exposed N/A -Texture (Tonie-wound Skin Appearance) Scarring -Moisture (Tonie-wound Skin Appearance) Dry/Scaly -Color (Tonie-wound Skin Appearance) No Abnormality -Temperature (Tonie-wound Skin No Abnormality Appearance) (Pt Warm) -Tenderness on Palpation (Tonie-wound No Skin Appearance) -Ulcer Cleansing Rinsed/ Irrigated with Saline -Foul Odor after Cleansing No -Anesthetic Used 5% Lidocaine Gel WC - Nurse 2 - General Ulcer CM Notes Start: 10/07/22 08:28 Freq: Status: Active Protocol: Activity Type Activity Date Activity User E-sign Co-sign Detail Recorded Client Recorded Date Recorded By Document 10/07/22 09:12 MW [id number] 10/07/22 09:25 MW 10/07/22 09:12 Wound Center Nurse 2 -Time 09:12 -Correct Patient Yes -Correct Side, Site, Position Yes -Correct Procedure Yes -Procedure Performed Yes -Type of Procedure Debridement -Clinical Debridement Subcutaneous -Tissue Removed Subcutaneous -Post Debridement (cm) - Length 1.0 -Post Debridement (cm) - Width 1.1 -Post Debridement (cm) - Depth 0.1 -Total Square (Post) (cm) 1.10 -Area of Debridement (cm) - Length 1.0 -Area of Debridement (cm) - Width 1.1 -Total Square (Area) (cm) 1.10 -Tunneling No -Undermining/Tunneling No -Circular Undermining No -Wound/Ulcer Outcome Not Healed -Ulcer Cleansing Rinsed/ Irrigated with Saline -Foul Odor after Cleansing No -Bioengineered Tissue No -Bleeding Controlled with Pressure -Treatment Response Procedure Tolerated Well -Offloading No -Debridement - Subq, 1st 20sq cm Yes Pain Scale: 0-10 Numeric Is Patient Pain Free? Yes - Nurse 3 - General Ulcer D/C NN Start: 10/07/22 08:28 Freq: Status: Active Protocol: Activity Type Activity Date Activity User E-sign Co-sign Detail Recorded Client Recorded Date Recorded By Document 10/07/22 09:38 DL [id number] 10/07/22 09:41 DL 10/07/22 09:38 Wound Care Center Nurse 3 #1 R 4th finger -Ulcer Cleansing Rinsed/ Irrigated with Saline -Foul Odor after Cleansing No -Primary Dressing Applied C Hydrogel ($), NonAdherent Contact Layer -Primary Dressing Covered/Secured with Dry Gauze, Secured with Tape Treatment Response Procedure Tolerated Well Pain Scale: 0-10 Numeric Is Patient Pain Free? Yes - Visit Discharge Discharge Condition Stable Ambulatory Status Ambulatory Transportation Private Auto Assessment/Plan Assessment/Plan (1) Benign essential hypertension: CODE(S): I10 - Essential (primary) hypertension (2) S/P CABG x 3: CODE(S): Z95.1 - Presence of aortocoronary bypass graft (3) Type II diabetes mellitus: CODE(S): E11.9 - Type 2 diabetes mellitus without complications (4) Diabetic neuropathy: CODE(S): E11.40 - Type 2 diabetes mellitus with diabetic neuropathy, unspecified (5) Gastroparesis: CODE(S): K31.84 - Gastroparesis (6) Atherosclerosis of coronary artery of [place] heart without angina pectoris: CODE(S): I25.10 - Atherosclerotic heart disease of [place] coronary artery without angina pectoris (7) Stroke: CODE(S): I63.9 - Cerebral infarction, unspecified (8) Polyneuropathy due to type 2 diabetes mellitus: CODE(S): E11.42 - Type 2 diabetes mellitus with diabetic polyneuropathy (9) Burn of finger without thumb, right hand, third degree: CODE(S): T23.321A - Burn of third degree of single right finger (nail) except thumb, initial encounter (10) Uncontrolled diabetes mellitus: PLAN: Plan Debridement performed today in clinic as annotated above. At home wound-care instructions: Will have him wash with antibacterial soap and water daily. Apply hydrogel and adaptic and cover with gauze daily. Keep dressing clean and dry. Off-loading: The patient was instructed to avoid pressure and friction on the affected areas. Reposition every 2 hours at minimum. Avoid prolonged standing and/or dangling of legs. When seated, feet should be elevated at chest level. Frequent ambulation is encouraged. Diet: Patient encouraged to increase protein intake while taking caution to avoid high carbohydrate and/or sugar intake. Labs/cultures/imaging: Most recent A1C 8.1% per patient. Follow-up: Return in 1 week for wound care follow up. Return sooner or report to the emergency room should symptoms worsen, or new symptoms arise. Note: [facility] speech recognition professional bass fisher software was used to create portions of this document. Sound-alike and misspelled words, as well as other t ranscription errors may be contained in the documentation.
== END 2022-10-07 23:59 | disposition home or self-care (01) ==
LOC: WC 08:12
PROVIDERS: PCP Family Medicine; Referring Provider Nurse Practitioner Family; Visit Provider Family Medicine
DX: T23.321A Burn of third degree of single right finger (nail) except thumb, initial encounter (principal); E11.42 Type 2 diabetes mellitus with diabetic polyneuropathy; E11.43 Type 2 diabetes mellitus with diabetic autonomic (poly)neuropathy; Z79.4 Long term (current) use of insulin; Z86.73 Personal history of transient ischemic attack (TIA), and cerebral infarction without residual deficits; Z79.82 Long term (current) use of aspirin; I10 Essential (primary) hypertension; Z79.02 Long term (current) use of antithrombotics/antiplatelets; I25.10 Atherosclerotic heart disease of native coronary artery without angina pectoris; Z95.1 Presence of aortocoronary bypass graft; Z79.899 Other long term (current) drug therapy; X10.1XXA Contact with hot food, initial encounter; S61.204A Unspecified open wound of right ring finger without damage to nail, initial encounter
CPT/HCPCS: 11042; 16020; 99213; G0463

== ENCOUNTER 2022-10-14 07:53 | Outpatient (RCR) | payer OTHER, MEDICARE, SELFPAY ==
[2022-10-08 02:25] VITALS: BP 118/61; PULSE 73; RESP 20; TEMP 35.6
[2022-10-14 08:08] VITALS: BP 174/77; PULSE 69; RESP 18; TEMP 36.1
--- NOTE | 2022-10-14 13:57 | PN.PCM_ITS ---
History of Present Illness Date of Service: 10/14/22 Chief Complaint: burn to right ring finger History of Wound: Shane is a pleasant 67 yo gentleman that present to the wound center for evaluation and treatment of a burn wound to his right 4th finger which occurred approx. 3 weeks ago. He was making spaghetti sauce and went to remove the lid and sauce splashed on his hand. The wound was full thickness into the subcutaneous tissue but no visualized tendon or bone. He went to urgent care and was prescribed Keflex and was applying Bactroban to the wound. He has been covering it with bandaids but having a difficult time with finding a way to keep bandages in place. 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 Due to this history, his PCP referred him to wound center for evaluation and treatment. He has not had much drainage from the wound. He reports that his last A1C within the last 3 months was 8.1%. He has a difficult time controlling his DM because of gastroparesis. He denies odor, increased drainage or erythema. He does have an [id number] PMH of multiple comorbid conditions including CAD, DM and a h/o stroke. Progress of Wound: His wound is healed today. He tolerated treatment with hydrogel. Objective Data Objective Data Vital Signs: Vital Signs Temp Pulse Resp BP O2 Del Method 97 F L 69 18 174/77 H Room Air 10/14/22 08:08 10/14/22 08:08 10/14/22 08:08 10/14/22 08:08 10/14/22 08:08 Oxygen Delivery Method Room Air Physical Exam Const alert, oriented x3 and no apparent distress General Appearance: cooperative and comfortable HEENT normocephalic and head/scalp atraumatic Resp normal respiratory effort Effort and Inspection: able to speak in complete sentences Cardio regular rate and regular rhythm Skin Wounds: wounds noted Wound Narrative: as in clinical panel Psych mental status grossly normal, thought process normal, cooperative and affect normal Debridement Note Debridement Note Wound debrided: Right 4th finger Laterality: Right Anesthesia Used: 4% Lidocaine Solution Depth: Down to and including healthy tissue Patient tolerated procedure: Patient tolerated procedure well No debridement was completed: No debridement was completed today (wound is healed) Post-Debridement Measurements and Additional Note: Post-Debridement Measurements/Treatment WC - Nurse 1 - General Ulcer Assessment Start: 10/14/22 08:06 Freq: Status: Active Protocol: LULI Activity Type Activity Date Activity User E-sign Co-sign Detail Recorded Client Recorded Date Recorded By Document 10/14/22 08:08 ND [id number] 10/14/22 08:10 ND 10/14/22 08:08 - Today's Visit Information Type of service Follow-up Visit (Physician/REGIONAL ACCOUNT DIRECTOR ) Arrival Mode Ambulatory Accompanied by self Patient Identification Verified (Name & Yes ) Safety Precautions Fall Prevention Vital Signs Temperature (97.8 F-99.1 F) 97 F L Temperature Source Temporal Pulse Rate (60-100) 69 Pulse Location Monitor Respiratory Rate (12-18) 18 Respiratory rate source Observation Oxygen Delivery Method Room Air Blood Pressure (90/60-120/80) 174/77 H Blood Pressure Mean (mm Hg) 109 Source Monitor Position Sitting Blood Pressure Location Right Arm History Since Last Visit- (Skip if this is Patient's initial visit) Has dressing in place as prescribed Yes Has compression in place as prescribed N/A Has offloadiing in place as prescribed N/A Experienced any changes in pain level or No management Left Footwear Regular Shoe Right Footwear Regular Shoe Pain Scale: 0-10 Numeric Is Patient Pain Free? Yes - Nurse 1 - General Ulcer Measurement Start: 10/14/22 08:06 Freq: Status: Active Protocol: Activity Type Activity Date Activity User E-sign Co-sign Detail Recorded Client Recorded Date Recorded By Document 10/14/22 08:08 ND [id number] 10/14/22 08:10 ND 10/14/22 08:08 Wound Center Nurse 1 #1 R 4th finger -Current Size (cm) - Length 0.1 -Current Size (cm) - Width 0.1 -Current Size (cm) - Depth 0.1 -Total Square Cm 0.01 -Date of Last Picture (Recall this 10/14/22 field) -Photo Taken Yes -Exudate Amt None Present -Wound Margin Flat & Intact -Granulation Amt Large (67-100%) -Granulation Quality [place] -Slough/Fibrin No -Texture (Tonie-wound Skin Appearance) Assessed -Moisture (Tonie-wound Skin Appearance) Assessed -Color (Tonie-wound Skin Appearance) Assessed -Temperature (Tonie-wound Skin No Abnormality Appearance) (Pt Warm) -Tenderness on Palpation (Tonie-wound No Skin Appearance) -Ulcer Cleansing Soap and Water -Foul Odor after Cleansing No -Anesthetic Used 4% Lidocaine Solution Lower Limb Edema Present NA - Nurse 2 - General Ulcer CM Notes Start: 10/14/22 08:06 Freq: Status: Active Protocol: Activity Type Activity Date Activity User E-sign Co-sign Detail Recorded Client Recorded Date Recorded By Document 10/14/22 08:19 MW Desktop 10/14/22 08:23 MW 10/14/22 08:19 Wound Center Nurse 2 #1 R 4th finger -Time 08:20 -Correct Patient Yes -Correct Side, Site, Position Yes -Correct Procedure Yes -Procedure Performed No -Post Debridement (cm) - Length 0 -Post Debridement (cm) - Width 0 -Post Debridement (cm) - Depth 0 -Total Square (Post) (cm) 0 -Wound/Ulcer Outcome Healed- Epithelialized Pain Scale: 0-10 Numeric Is Patient Pain Free? Yes - Nurse 3 - General Ulcer D/C NN Start: 10/14/22 08:06 Freq: Status: Active Protocol: Activity Type Activity Date Activity User E-sign Co-sign Detail Recorded Client Recorded Date Recorded By Document 10/14/22 08:24 MW Desktop 10/14/22 08:24 MW 10/14/22 08:24 Wound Care Center Nurse 3 #1 R 4th finger -Other Dressing c.hydrogel -Primary Dressing Covered/Secured with Dry Gauze, Secured with Tape Pain Scale: 0-10 Numeric Is Patient Pain Free? Yes Teaching: Wound Center Discharge Instructions -Person Taught Patient -Teaching Method Discussion -Response to teaching Verbalize understanding Dressing Your Wound -Person Taught Patient,Family -Teaching Method Discussion -Response to teaching Verbalize understanding WC - Visit Discharge Discharge Condition Stable Ambulatory Status Ambulatory Transportation Private Auto Accompanied by self Medication Reconcilliation completed & No provided to patient/care provider Clinical Summary of Care Provided Yes Notes: healed, discharged Assessment/Plan Assessment/Plan (1) Uncontrolled diabetes mellitus: (2) Burn of finger without thumb, right hand, third degree: CODE(S): T23.321A - Burn of third degree of single right finger (nail) except thumb, initial encounter (3) Diabetic neuropathy: CODE(S): E11.40 - Type 2 diabetes mellitus with diabetic neuropathy, unspecified (4) Gastroparesis: CODE(S): K31.84 - Gastroparesis (5) Benign essential hypertension: CODE(S): I10 - Essential (primary) hypertension (6) S/P CABG x 3: CODE(S): Z95.1 - Presence of aortocoronary bypass graft (7) Type II diabetes mellitus: CODE(S): E11.9 - Type 2 diabetes mellitus without complications (8) Atherosclerosis of coronary artery of [place] heart without angina pectoris: CODE(S): I25.10 - Atherosclerotic heart disease of [place] coronary artery without angina pectoris (9) Stroke: CODE(S): I63.9 - Cerebral infarction, unspecified (10) Polyneuropathy due to type 2 diabetes mellitus: CODE(S): E11.42 - Type 2 diabetes mellitus with diabetic polyneuropathy PLAN: Plan His wound is healed today. At home wound-care instructions: Will have him wash with antibacterial soap and water daily. Avoid trauma or injury and protect area for the next 1-2 weeks. Off-loading: The patient was instructed to avoid pressure and friction on the affected areas. Reposition every 2 hours at minimum. Avoid prolonged standing and/or dangling of legs. When seated, feet should be elevated at chest level. Frequent ambulation is encouraged. Diet: Patient encouraged to increase protein intake while taking caution to avoid high carbohydrate and/or sugar intake. Labs/cultures/imaging: Most recent A1C 8.1% per patient. Follow-up: He is discharged from wound care today. It has been a pleasure to treat him. Note: [employer] speech recognition supervisory training specialist software was used to create portions of this document. Sound-alike and misspelled words, as well as other supervisory training specialist errors may be contained in the documentation.
== END 2022-10-17 13:37 | disposition home or self-care (01) ==
LOC: WC 07:53
PROVIDERS: PCP Family Medicine; Referring Provider Nurse Practitioner Family; Visit Provider Family Medicine
DX: Z09 Encounter for follow-up examination after completed treatment for conditions other than malignant neoplasm (principal); E11.43 Type 2 diabetes mellitus with diabetic autonomic (poly)neuropathy; E11.42 Type 2 diabetes mellitus with diabetic polyneuropathy; K31.84 Gastroparesis; I10 Essential (primary) hypertension; I25.10 Atherosclerotic heart disease of native coronary artery without angina pectoris
CPT/HCPCS: 99213; G0463

== ENCOUNTER → 2022-12-29 | Outpatient (CLI) | payer OTHER, MEDICARE, SELFPAY ==
[2022-12-29 18:27] LABS: ALB/GLOB Ratio 1.1 RATIO (0.9-2.4); AST(SGOT) 47 U/L (15-37); Alanine Aminotransfer ALT/SGPT 96 U/L (16-61); Albumin, Serum 3.6 g/dL (3.2-5.0); Alkaline Phosphatase 121 U/L (45-117); Anion Gap 3 (5-15); BUN 17 mg/dL (7-18); BUN/Creat Ratio 18.2 RATIO (10-20); Calcium,Total 9.3 mg/dL (8.5-10.1); Chloride 106 mmol/L (98-107); Creatinine, Serum 0.93 mg/dL (0.70-1.30); EST Glomerular Filtration Rate 86 mL/min (>60); Est Glom Filt Rate - Afr Amer 104 mL/min (>60); Globulin 3.2 g/dL (2.2-4.2); Glucose 157 mg/dL (74-106); Potassium 4.5 mmol/L (3.5-5.1); Protein, Total 6.8 g/dL (6.4-8.2); Sodium Level 139 mmol/L (136-145); Thyroid Stim Hormone (TSH) 1.42 uIU/mL (0.358-3.74)
[2022-12-29 18:52] LABS: Microalbumin,Random Urine 11.6 mg/L (NO RANGE EST.); Microalbumin:Creatinine Ratio 10.3 mg/g CRE (<30 mg/g CRE)
== END | disposition home or self-care (01) ==
LOC: MTLAB 15:50
PROVIDERS: PCP Family Medicine; Referring Provider Internal Medicine Endocrinology, Diabetes & Metabolism; Visit Provider Internal Medicine Endocrinology, Diabetes & Metabolism
DX: E11.42 Type 2 diabetes mellitus with diabetic polyneuropathy (principal); E04.9 Nontoxic goiter, unspecified
CPT/HCPCS: 36415; 80053; 82043; 82570; 84443

== ENCOUNTER 2023-01-26 08:15 | Outpatient (RCR) | payer OTHER, MEDICARE, SELFPAY ==
[2023-01-12 08:21] VITALS: BP 130/55; PULSE 72; TEMP 36.2; BMI 30.6
--- NOTE | 2023-01-12 08:34 | HP.PCM_ITS ---
History of Present Illness Date of Service: 01/12/23 Chief Complaint: burn to right ring finger History of Wound: Shane is a pleasant 67 yo gentleman with PMHx of DM type II with peripheral polyneuropathy, HTN, HLD, CAD, CVA, CABG with stent placement. He presents to the wound center for evaluation and treatment of a dorsal second digit and third digit wound of the left foot which occurred approx. 3 weeks ago. He states that while in [place] 3 weeks ago he was exiting the pool and caught the top of his second and third toe against the step exiting the pool. He states he has been treating the abrasions with antibiotic ointment and Band- Aid. He has been following with his industrial renderer who did order recent lab work on 12/29/2022 which included updated hemoglobin A1c noted to be 8%. He states this is down from 8.8. He was referred to the wound center for delayed wound healing of his second and third digit of the left foot. 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 GERD (gastroesophageal reflux disease) H/O emotional problems Heart disease High cholesterol History of back problems History of echocardiogram History of heart attack History of stress test HTN (hypertension) Insulin dependent diabetes mellitus Irritable bowel disease Kidney stones Mirizzi's syndrome Neuropathy Non-smoker Restless legs Rheumatoid arthritis Stroke Vascular disease Wears glasses Home Medications gabapentin 600 mg tablet 600 mg PO DAILY pain 05/31/14 [History Last Taken 02/25/17] clopidogrel 75 mg tablet 75 mg PO DAILY blood thinner 02/25/17 [History Last Taken 09/10/22] oxycodone-acetaminophen 5 mg-325 mg tablet 1 tab PO Q8H PRN PRN Pain 02/25/17 [History Last Taken 02/24/17] lidocaine 5 % topical patch (Lidoderm) 1 patch topical DAILY PRN Back Pain 10/28/21 [History Last Taken Unknown] aspirin 81 mg tablet,delayed release 81 mg PO DAILY@0800 #0 tabs 01/27/22 [Rx Last Taken 03/04/23] fexofenadine 180 mg tablet 180 mg PO DAILY PRN allergies 03/04/22 [History Last Taken Unknown] insulin aspart U-100 100 unit/mL (3 mL) subcutaneous pen (Novolog FlexPen U-100 Insulin aspart) 15 unit subcut TIDCM DM 03/04/22 [History Last Taken Unknown] insulin glargine 100 unit/mL (3 mL) subcutaneous pen 50 unit subcut BID DM 03/04/22 [History Last Taken 09/13/22 09:00] rosuvastatin 40 mg tablet 40 mg PO DAILY 03/04/22 [History Last Taken Unknown] pantoprazole 40 mg tablet,delayed release (Protonix) 40 mg PO DAILY PRN GERD #90 tabs 09/07/22 [Rx Last Taken Unknown] carvedilol 6.25 mg tablet 6.25 mg PO BID #180 tabs 09/30/22 [Rx Last Taken Unknown] Allergy/AdvReac Type Severity Reaction Status Date / Time aripiprazole [From Abilify] Allergy Mild FELT POORLY Verified 10/07/22 08:56 atorvastatin [From Lipitor] Allergy muscle Verified 10/07/22 08:56 aches nabumetone [From Relafen] Allergy GI Verified 10/07/22 08:56 Family History Mother Heart disease Father Heart disease Surgical History H/O knee surgery History of cardiac catheterization History of coronary artery bypass graft x 3 History of laparoscopic cholecystectomy Hx of tonsillectomy Presence of internal carotid stent (~2018) Stented coronary artery (01/26/22) Vertebral artery stenosis Social History household members: spouse Smoking Status: Never smoker alcohol intake: never substance use type: does not use ROS Constitutional Constitutional: Denies anorexia, chills, fatigue or fever(s) Eyes Eyes: Denies blurry vision, double vision or erythema ENT HEENT: Denies dysphagia, nasal congestion or sore throat Cardiovascular Cardiovascular: Denies chest pain, claudication or palpitations Respiratory/Chest Respiratory/Chest: Denies cough, shortness of breath with exertion or wheezing Gastrointestinal Gastrointestinal: Denies abdominal pain, constipation, diarrhea, nausea or vomiting Genitourinary Genitourinary: Denies dysuria, hematuria or urinary urgency Musculoskeletal Musculoskeletal: Denies joint pain, joint stiffness or joint swelling Integumentary Integumentary: Denies lesions, pruritus or rash Neurologic Neurologic: Denies dizziness, numbness or seizures Endocrine Endocrinology: Denies cold intolerance or heat intolerance Hematologic/Lymphatic Hematologic/Lymphatic: Denies easy bleeding or easy bruising Vital Signs Vital Signs Vital Signs: 01/12/23 08:21 Temperature 97.1 F L Temperature Source Temporal Pulse Rate 72 Blood Pressure 130/55 H Blood Pressure Mean 80 Blood Pressure Source Monitor Weight Weight: 111.13 kg Body Mass Index (BMI) 30.6 Physical Exam Const alert, oriented x3 and no apparent distress General Appearance: cooperative HEENT normocephalic Eyes General Eye: normal appearance of both eyes Neck General: normal visual inspection Lymph Lymphatic: no lymphadenopathy noted and no lymphedema noted Resp normal respiratory effort Cardio regular rate and regular rhythm Extremity normal capillary refill, no joint enlargement, no calf tenderness and no pedal edema Extremity Narrative: DP and PT pulses weakly palpable bilateral with capillary fill time of 5 seconds to the digits. Dermatological: Dorsal second and third digit wound. Second digit demonstrates healthy granular base, third digit demonstrates dried stable eschar. Wound sites demonstrate no erythema, no purulent drainage, no malodor, no palpable fluctuance/bogginess noted, no visible abscess formation, no lymphangitic streaking. Wound sites are stable. Musculoskeletal: Decreased range of motion of the ankle joint in dorsiflexion with the knee extended without pain and crepitus bilateral. Decreased range of motion to the first metatarsophalangeal joint without pain or crepitus bilateral. No pain to palpation about the second or third digit of the left foot. Skin no rashes or lesions noted, skin turgor normal and no jaundice Neuro moves all extremities Neuro Narrative: Decreased protective sensation to both feet secondary to diabetic peripheral polyneuropathy Debridement Note Debridement Note Wound debrided: Dorsal digit 2 and 3 Laterality: Left Wound Grade/Stage: Ruth stage I Type of Debridement: Excisional debridement Anesthesia Used: 5% Lidocaine Gel Depth: Down to and including healthy tissue and in the subcutaneous layer Percentage of wound debrided: 100 Instrument Used: 3mm curette Tissue Removed: Fibrous, devitalized subcutaneous, biofilm, slough Severity: Fat Layer Exposed Amount of bleeding with debridement: Mild Bleeding Controlled with: Compression and gauze Patient tolerated procedure: Patient tolerated procedure well Post-Debridement Measurements and Additional Note: Post-Debridement Measurements/Treatment - Nurse 1 - General Ulcer Assessment Start: 01/12/23 08:21 Freq: Status: Active Protocol: LULI Activity Type Activity Date Activity User E-sign Co-sign Detail Recorded Client Recorded Date Recorded By Document 01/12/23 08:21 MARICRUZ [id number] 01/12/23 08:30 IA 01/12/23 08:21 WC - Today's Visit Information Type of service Nurse-only Visit Arrival Mode Ambulatory Patient Identification Verified (Name & Yes ) Finger Stick Blood Sugar(mg/dl) (if 152 indicated): Blood Sugar Stated by Patient Height and Weight Height 6 ft 3 in Weight 111.13 kg Weight in Pounds 245.0 lbs Body Mass Index (BMI) 30.6 BMI Classification Obese BSA - [place] 2.39 Vital Signs Temperature (97.8 F-99.1 F) 97.1 F L Temperature Source Temporal Pulse Rate (60-100) 72 Pulse Location Monitor Blood Pressure (90/60-120/80) 130/55 H Blood Pressure Mean 80 Source Monitor History Since Last Visit- (Skip if this is Patient's initial visit) Have you changed medications since your No last visit? Any new allergies or adverse reactions No Had a fall/change in ADL's that may No increase risk of falls Signs or symptoms of abuse and/or No neglect since last visit Have you been in the hospital since your No last visit? Has dressing in place as prescribed No Has compression in place as prescribed N/A Has offloadiing in place as prescribed N/A Experienced any changes in pain level or No management Left Footwear Regular Shoe Right Footwear Regular Shoe Pain Scale: 0-10 Numeric Is Patient Pain Free? Yes - Nurse 1 - General Ulcer Measurement Start: 01/12/23 08:21 Freq: Status: Active Protocol: Activity Type Activity Date Activity User E-sign Co-sign Detail Recorded Client Recorded Date Recorded By Document 01/12/23 08:21 MARICRUZ [id number] 01/12/23 08:30 MARICRUZ 01/12/23 08:21 Wound Center Nurse 1 #3 L 3rd toe -Current Size (cm) - Length 0.5 -Current Size (cm) - Width 1 -Current Size (cm) - Depth 0.1 -Total Square Cm 0.5 -Photo Taken Yes -Tunneling No -Undermining/Tunneling No -Circular Undermining No -Change in Wound Grade/Stage No -Exudate Amt None Present -Exudate Type Serosanguineous -Wound Margin Distinct, Outline Attached -Granulation Amt None Present (0 %) -Granulation Quality N/A -Slough/Fibrin No -Necrosis Amt Large (67-100%) -Necrotic Tissue Type Eschar -Structure Exposed N/A -Texture (Tonie-wound Skin Appearance) No Abnormality, Assessed -Moisture (Tonie-wound Skin Appearance) No Abnormality, Assessed -Color (Tonie-wound Skin Appearance) No Abnormality, Assessed -Temperature (Tonie-wound Skin No Abnormality Appearance) (Pt Warm) -Tenderness on Palpation (Tonie-wound No Skin Appearance) -Ulcer Cleansing Rinsed/ Irrigated with Saline -Foul Odor after Cleansing No -Anesthetic Used 5% Lidocaine Gel #2 l 2nd toe -Current Size (cm) - Length 1.5 -Current Size (cm) - Width 0.5 -Current Size (cm) - Depth 0.1 -Total Square Cm 0.75 -Photo Taken Yes -Tunneling No -Undermining/Tunneling No -Circular Undermining No -Change in Wound Grade/Stage No -Exudate Amt Small -Exudate Type Serosanguineous -Wound Margin Distinct, Outline Attached -Granulation Amt Large (67-100%) -Granulation Quality [place] -Slough/Fibrin Yes -Necrosis Amt Small (1-33%) -Necrotic Tissue Type Adherent Slough -Structure Exposed N/A -Texture (Tonie-wound Skin Appearance) No Abnormality, Assessed -Moisture (Tonie-wound Skin Appearance) No Abnormality, Assessed -Color (Tonie-wound Skin Appearance) No Abnormality, Assessed -Temperature (Tonie-wound Skin No Abnormality Appearance) (Pt Warm) -Tenderness on Palpation (Tonie-wound No Skin Appearance) -Ulcer Cleansing Rinsed/ Irrigated with Saline -Foul Odor after Cleansing No -Anesthetic Used 5% Lidocaine Gel Right Calf (cm) 37 Right Ankle (cm) 23 Left Calf (cm) 38 Left Ankle (cm) 23 Assessment/Plan Assessment/Plan (1) Uncontrolled diabetes mellitus: (2) Benign essential hypertension: CODE(S): I10 - Essential (primary) hypertension (3) CAD (coronary artery disease): CODE(S): I25.10 - Atherosclerotic heart disease of [place] coronary artery without angina pectoris QUALIFIERS: Coronary Disease-Associated Artery/Lesion type: bypass graft [place] vs. transplanted heart: [place] heart Associated angina: angina presence unspecified Qualified Code(s): I25.810 - Atherosclerosis of coronary artery bypass graft(s) without angina pectoris (4) S/P CABG x 3: CODE(S): Z95.1 - Presence of aortocoronary bypass graft (5) Polyneuropathy due to type 2 diabetes mellitus: CODE(S): E11.42 - Type 2 diabetes mellitus with diabetic polyneuropathy (6) PAD (peripheral artery disease): CODE(S): I73.9 - Peripheral vascular disease, unspecified (7) Non-pressure chronic ulcer of other part of left foot with fat layer exposed: CODE(S): L97.522 - Non-pressure chronic ulcer of other part of left foot with fat layer exposed PLAN: Plan Patient seen and evaluated Ulcerations underwent debridement as noted in the clinical panel above. Postdebridement wounds did demonstrate healthy granular layer with adequate bleeding. Left second digit measures 0.1 cm x 0.5 cm x 0.1 cm left third digit measures 0.5 cm x 0.7 cm x 0.1 cm. Ulcerative sites dressed with Kelly and dry sterile dressing. He is instructed to dress daily. Discussed his recent A1c of 8.0% which is down from 8.8%. Discussed he still has some work to do for striving for glycemic control. Recommended obtaining A1c as close to 6.5% as possible. Discussed proper diabetic diet. Stressed the importance of diabetic follow-ups with PCP/industrial renderer for management of diabetes and six horse hitch driver for overall foot evaluation. Discussed he is to not walk barefoot, socks include barefoot. Encouraged shoe gear to be worn at all times. He voices understanding of this discussion. Updated LEAS was ordered 01/12/2023, awaiting results Discussed signs and symptoms of infection to observe. Discussed if he notices any redness about the wound sites that moves up the foot and onto the leg, or if he experiences purulent drainage from the wound sites, increasing foul odor from wound sites, darkened discoloration of the digits, or if he experiences fever greater than 101 degree, nausea, vomiting, chills that these are signs of a progressing infection and he needs to report to the ED. He voices understanding of this today. The following work up and care recommendations were made: Dressing: Kelly and dry sterile dressing Wash: Soap and water Tissue growth optimization: Kelly Offload: Ensure shoe gear does not rub dorsal digits Vascular: Weakly palpable DP and PT pulses with capillary fill time of 5 seconds. Updated LEAS was ordered 01/12/2023 Edema: No edema noted. Infection: No signs of infection. Pain: May take [id number] Tylenol for discomfort Host factors: DM type II with peripheral polyneuropathy, PAD, HTN, HLD, CAD, CVA, CABG. I answered all the patient's questions. To return to the wound healing center in 2 weeks or call sooner if the patient has any questions or concerns.
--- NOTE | 2023-01-16 13:44 | VDLE_ITS ---
Reason For Study: Non healing wound RIGHT LEFT CFV is compressible, spontaneous, phasic, CFV is compressible, spontaneous, phasic, competent and demonstrates normal competent, and demonstrates normal augmentation. augmentation. FV is compressible, spontaneous, phasic, FV is compressible, spontaneous, phasic, competent and demonstrates normal competent and demonstrates normal augmentation. augmentation. POP V is compressible, spontaneous, phasic, POP V is compressible, spontaneous, phasic, competent and demonstrates normal competent and demonstrates normal augmentation. augmentation. T/P Trunk is compressible. T/P Trunk is compressible. PTV is compressible. PTV is compressible. RT PerV is compressible. LT PerV is compressible. SFJ is competent and measures 0.84 x 0.78 cm. SFJ is competent and measures 0.64 x 0.60 cm. GSV proximal thigh measures 0.41 x 0.41 cm. GSV proximal thigh measures 0.37 x 0.42 cm. GSV above knee is competent. GSV at knee measures 0.46 x 0.44 cm. GSV at knee measures 0.43 x 0.41 cm. GSV is competent throughout. GSV below knee is INCOMPETENT for greater ASV proximal calf is INCOMPETENT for greater than 0.5 seconds. than 0.5 seconds and measures 0.16 x 0.20 cm. ASV proximal calf is INCOMPETENT for greater SSV proximal calf is competent and measures than 0.5 seconds and measures 0.32 x 0.33 cm. 0.34 x 0.38 cm. ASV mid calf is INCOMPETENT for greater than 0.5 seconds and measures 0.28 x 0.28 cm. SSV proximal calf is competent and measures 0.28 x 0.30 cm. Procedure This is a venous duplex using B-mode, color flow and spectral Doppler. Exam performed in department. A preliminary report was called and/or faxed to . VL/Venous Duplex US - Farhan Extrem Interpretation Summary Deep veins of the lower extremities are bilaterally patent and compressible seg mentally. There is no evidence of deep vein thrombosis on either side. Valvular competence appears in tact within the proximal deep venous systems bilaterally. The great saphenous veins appear bila terally patent and compressible segmentally. Sapheno-femoral junctions are bilaterally competent . The right great saphenous vein appears competent above the knee. The right great saphenous vein appears incompetent below the knee. The left great saphenous vein appears segmentally competent. Sm all saphenous veins are patent and competent bilaterally. The accessory saphenous veins in the righ t proximal calf and mid-calf are incompetent. The accessory saphenous vein in the left proximal roma f is incompetent. Ordering Physician: Ray Greenfield Referring Physician: Yeimi Ndiaye Performed By: Sophia Matta RVT
[2023-01-26 08:18] VITALS: BP 126/76; PULSE 70; RESP 16; TEMP 35.5; BMI 30.6
--- NOTE | 2023-01-26 08:23 | PCM.WC.PN ---
History of Present Illness Date of Service: 01/26/23 Chief Complaint: burn to right ring finger History of Wound: Shane is a pleasant 67 yo gentleman with PMHx of DM type II with peripheral polyneuropathy, HTN, HLD, CAD, CVA, CABG with stent placement. He presents to the wound center for evaluation and treatment of a dorsal second digit and third digit wound of the left foot which occurred approx. 3 weeks ago. He states that while in [place] 3 weeks ago he was exiting the pool and caught the top of his second and third toe against the step exiting the pool. He states he has been treating the abrasions with antibiotic ointment and Band-Aid. He has been following with his electrical maintenance technician who did order recent lab work on 12/29/2022 which included updated hemoglobin A1c noted to be 8%. He states this is down from 8.8. He was referred to the wound center for delayed wound healing of his second and third digit of the left foot. Subjective Subjective This is a 67-year-old male who follows up to the wound care center today for dorsal wounds of the second and third toe of the left foot. He states he has been changing the dressings daily to the toes. He denies any pain in the digits. Denies any constitutional symptoms. Denies further complaints. Objective Data Objective Data Vital Signs: Vital Signs Temp Pulse Resp BP 95.9 F L 70 16 126/76 H 01/26/23 08:18 01/26/23 08:18 01/26/23 08:18 01/26/23 08:18 Weight: 111.13 kg Body Mass Index (BMI) 30.6 Physical Exam Const alert, oriented x3 and no apparent distress General Appearance: cooperative HEENT normocephalic Eyes General Eye: normal appearance of both eyes Neck General: normal visual inspection Lymph Lymphatic: no lymphadenopathy noted and no lymphedema noted Resp normal respiratory effort Cardio regular rate and regular rhythm Extremity normal capillary refill, no joint enlargement, no calf tenderness and no pedal edema Extremity Narrative: DP and PT pulses weakly palpable bilateral with capillary fill time of 5 seconds to the digits. Dermatological: Dorsal second and third digit wound. Second digit demonstrates healthy granular base, third digit demonstrates dried stable eschar. Wound sites demonstrate no erythema, no purulent drainage, no malodor, no palpable fluctuance/bogginess noted, no visible abscess formation, no lymphangitic streaking. Wound sites are stable. Musculoskeletal: Decreased range of motion of the ankle joint in dorsiflexion with the knee extended without pain and crepitus bilateral. Decreased range of motion to the first metatarsophalangeal joint without pain or crepitus bilateral. No pain to palpation about the second or third digit of the left foot. Skin no rashes or lesions noted, skin turgor normal and no jaundice Neuro moves all extremities Neuro Narrative: Decreased protective sensation to both feet secondary to diabetic peripheral polyneuropathy Debridement Note Debridement Note Wound debrided: Dorsal second and third digit Laterality: Left Wound Grade/Stage: Ruth stage I Type of Debridement: Excisional debridement Anesthesia Used: 5% Lidocaine Gel Depth: Down to and including healthy tissue and in the subcutaneous layer Percentage of wound debrided: 100 Instrument Used: 3mm curette Tissue Removed: Fibrous, devitalized subcutaneous, biofilm, slough Severity: Fat Layer Exposed Amount of bleeding with debridement: Mild Bleeding Controlled with: Compression and gauze Patient tolerated procedure: Patient tolerated procedure well Post-Debridement Measurements and Additional Note: Post-Debridement Measurements/Treatment - Nurse 1 - General Ulcer Assessment Start: 01/12/23 08:21 Freq: Status: Active Protocol: LULI Activity Type Activity Date Activity User E-sign Co-sign Detail Recorded Client Recorded Date Recorded By Document 01/12/23 08:21 DE [id number] 01/12/23 08:30 DE Document 01/26/23 08:18 [id number] 01/26/23 08:20 01/12/23 01/26/23 08:21 08:18 - Today's Visit Information Type of service Nurse-only Follow-up Visit Visit (Physician/MOBILITY DEVELOPER ) Arrival Mode Ambulatory Ambulatory Patient Identification Verified (Name & Yes Yes ) Patient Requires Transmission-Based No Precautions Finger Stick Blood Sugar(mg/dl) (if 152 112 indicated): Blood Sugar Stated by Stated by Patient Patient Height and Weight Height 6 ft 3 in Weight 111.13 kg Weight in Pounds 245.0 lbs Body Mass Index (BMI) 30.6 30.6 BMI Classification Obese Obese BSA - [place] 2.39 Vital Signs Temperature (97.8 F-99.1 F) 97.1 F L 95.9 F L Temperature Source Temporal Temporal Pulse Rate (60-100) 72 70 Pulse Location Monitor Monitor Respiratory Rate (12-18) 16 Respiratory rate source Observation Blood Pressure (90/60-120/80) 130/55 H 126/76 H Blood Pressure Mean (mm Hg) 80 92 Source Monitor Monitor Position Semi-Fowlers Blood Pressure Location Left Arm History Since Last Visit- (Skip if this is Patient's initial visit) Have you changed medications since your No No last visit? Any new allergies or adverse reactions No No Had a fall/change in ADL's that may No No increase risk of falls Signs or symptoms of abuse and/or No No neglect since last visit Have you been in the hospital since your No No last visit? Has dressing in place as prescribed No Yes Has compression in place as prescribed N/A N/A Has offloadiing in place as prescribed N/A No Experienced any changes in pain level or No No management Left Footwear Regular Shoe Regular Shoe Right Footwear Regular Shoe Regular Shoe Pain Scale: 0-10 Numeric Is Patient Pain Free? Yes Yes - Nurse 1 - General Ulcer Measurement Start: 01/12/23 08:21 Freq: Status: Active Protocol: Activity Type Activity Date Activity User E-sign Co-sign Detail Recorded Client Recorded Date Recorded By Document 01/12/23 08:21 DE [id number] 01/12/23 08:30 DE Document 01/26/23 08:18 [id number] 01/26/23 08:20 01/12/23 01/26/23 08:21 08:18 Wound Center Nurse 1 #3 L 3rd toe -Combined with other wound No -Current Size (cm) - Length 0.5 0.5 -Current Size (cm) - Width 1 0.5 -Current Size (cm) - Depth 0.1 0.1 -Total Square Cm 0.5 0.25 -Photo Taken Yes Yes -Epithelialization Small 1-33% -Tunneling No No -Undermining/Tunneling No No -Circular Undermining No No -Change in Wound Grade/Stage No -Exudate Amt None Present Small -Exudate Type Serosanguineous Serosanguineous -Wound Margin Distinct, Flat & Intact Outline Attached -Granulation Amt None Present (0 Medium (34-66%) %) -Granulation Quality N/A [place] -Slough/Fibrin No Yes -Necrosis Amt Large (67-100%) Small (1-33%) -Necrotic Tissue Type Eschar Adherent Slough -Structure Exposed N/A N/A -Texture (Tonie-wound Skin Appearance) No Abnormality, Assessed Assessed -Moisture (Tonie-wound Skin Appearance) No Abnormality, Assessed,Dry/ Assessed Scaly -Color (Tonie-wound Skin Appearance) No Abnormality, Assessed Assessed -Temperature (Tonie-wound Skin No Abnormality No Abnormality Appearance) (Pt Warm) (Pt Warm) -Tenderness on Palpation (Tonie-wound No No Skin Appearance) -Ulcer Cleansing Rinsed/ Rinsed/ Irrigated with Irrigated with Saline Saline -Foul Odor after Cleansing No No -Anesthetic Used 5% Lidocaine 5% Lidocaine Gel Gel #2 l 2nd toe -Combined with other wound No -Current Size (cm) - Length 1.5 0.2 -Current Size (cm) - Width 0.5 0.3 -Current Size (cm) - Depth 0.1 0.1 -Total Square Cm 0.75 0.06 -Photo Taken Yes No -Epithelialization Small 1-33% -Tunneling No No -Undermining/Tunneling No No -Circular Undermining No No -Change in Wound Grade/Stage No -Exudate Amt Small Small -Exudate Type Serosanguineous Serosanguineous -Wound Margin Distinct, Flat & Intact Outline Attached -Granulation Amt Large (67-100%) Small (1-33%) -Granulation Quality [place] -Slough/Fibrin Yes Yes -Necrosis Amt Small (1-33%) Small (1-33%) -Necrotic Tissue Type Adherent Slough Adherent Slough -Structure Exposed N/A N/A -Texture (Tonie-wound Skin Appearance) No Abnormality, Assessed Assessed -Moisture (Tonie-wound Skin Appearance) No Abnormality, Assessed,Dry/ Assessed Scaly -Color (Tonie-wound Skin Appearance) No Abnormality, Assessed Assessed -Temperature (Tonie-wound Skin No Abnormality No Abnormality Appearance) (Pt Warm) (Pt Warm) -Tenderness on Palpation (Tonie-wound No No Skin Appearance) -Ulcer Cleansing Rinsed/ Rinsed/ Irrigated with Irrigated with Saline Saline -Foul Odor after Cleansing No No -Anesthetic Used 5% Lidocaine 5% Lidocaine Gel Gel Lower Limb Edema Present NA Right Calf (cm) 37 Right Ankle (cm) 23 Left Calf (cm) 38 Left Ankle (cm) 23 WC - Nurse 2 - General Ulcer CM Notes Start: 01/12/23 08:21 Freq: Status: Active Protocol: Activity Type Activity Date Activity User E-sign Co-sign Detail Recorded Client Recorded Date Recorded By Document 01/12/23 11:51 PL [id number] 01/12/23 11:53 PL 01/12/23 11:51 Wound Center Nurse 2 #3 L 3rd toe -Time 08:58 -Correct Patient Yes -Correct Side, Site, Position Yes -Correct Procedure Yes -Procedure Performed Yes -Type of Procedure Debridement -Clinical Debridement Subcutaneous -Tissue Removed Subcutaneous -Post Debridement (cm) - Length 0.5 -Post Debridement (cm) - Width 0.7 -Post Debridement (cm) - Depth 0.1 -Total Square (Post) (cm) 0.35 -Area of Debridement (cm) - Length 0.5 -Area of Debridement (cm) - Width 0.7 -Total Square (Area) (cm) 0.35 -Tunneling No -Undermining/Tunneling No -Circular Undermining No -Wound/Ulcer Outcome Not Healed -Ulcer Cleansing Rinsed/ Irrigated with Saline -Foul Odor after Cleansing No -Bioengineered Tissue No -Bleeding Controlled with Pressure -Treatment Response Procedure Tolerated Well -Debridement - Subq, 1st 20sq cm No #2 l 2nd toe -Time 08:58 -Correct Patient Yes -Correct Side, Site, Position Yes -Correct Procedure Yes -Procedure Performed Yes -Type of Procedure Debridement -Clinical Debridement Subcutaneous -Tissue Removed Subcutaneous -Post Debridement (cm) - Length 0.1 -Post Debridement (cm) - Width 0.5 -Post Debridement (cm) - Depth 0.1 -Total Square (Post) (cm) 0.05 -Area of Debridement (cm) - Length 0.1 -Area of Debridement (cm) - Width 0.5 -Total Square (Area) (cm) 0.05 -Tunneling No -Undermining/Tunneling No -Circular Undermining No -Wound/Ulcer Outcome Not Healed -Ulcer Cleansing Rinsed/ Irrigated with Saline -Foul Odor after Cleansing No -Bioengineered Tissue No -Bleeding Controlled with Pressure -Treatment Response Procedure Tolerated Well -Debridement - Subq, 1st 20sq cm Yes Pain Scale: 0-10 Numeric Is Patient Pain Free? Yes WC - Nurse 3 - General Ulcer D/C NN Start: 01/12/23 08:21 Freq: Status: Active Protocol: Activity Type Activity Date Activity User E-sign Co-sign Detail Recorded Client Recorded Date Recorded By Document 01/12/23 09:35 WARREN [id number] 01/12/23 09:36 WARREN 01/12/23 09:35 Wound Care Center Nurse 3 #3 L 3rd toe -Ulcer Cleansing Rinsed/ Irrigated with Saline -Primary Dressing Applied Promogran Kelly Matter -Primary Dressing Covered/Secured with Dry Gauze, Secured with Tape -Promogran Kelly Matter 1 #2 l 2nd toe -Ulcer Cleansing Rinsed/ Irrigated with Saline -Primary Dressing Covered/Secured with Dry Gauze, Secured with Tape Pain Scale: 0-10 Numeric Is Patient Pain Free? Yes WC - Visit Discharge Discharge Condition Stable Ambulatory Status Ambulatory Transportation Private Auto Medication Reconcilliation completed & No provided to patient/care provider Clinical Summary of Care Provided Yes Assessment/Plan Assessment/Plan (1) Uncontrolled diabetes mellitus: (2) Benign essential hypertension: CODE(S): I10 - Essential (primary) hypertension (3) CAD (coronary artery disease): CODE(S): I25.10 - Atherosclerotic heart disease of [place] coronary artery without angina pectoris QUALIFIERS: Associated angina: angina presence unspecified Coronary Disease-Associated Artery/Lesion type: bypass graft [place] vs. 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 Postdebridement wounds did demonstrate healthy granular layer with adequate bleeding. Left second digit measures 0.1 cm x 0.2 cm x 0.1 cm left third digit measures 0.5 cm x 0.7 cm x 0.1 cm. Ulcerative sites dressed with Kelly and dry sterile dressing. He is instructed to dress daily. Ulcerations are noted to demonstrate decrease in size from previous visit. Discussed his recent A1c of 8.0% which is down from 8.8%. Discussed he still has some work to do for striving for glycemic control. Recommended obtaining A1c as close to 6.5% as possible. Discussed proper diabetic diet. Stressed the importance of diabetic follow-ups with PCP/electrical maintenance technician for management of diabetes and hospital insurance representative for overall foot evaluation. Discussed he is to not walk barefoot, socks include barefoot. Encouraged shoe gear to be worn at all times. He voices understanding of this discussion. Updated LEAS was ordered 01/12/2023, awaiting results He did undergo venous study on 01/16/2023 demonstrating no evidence of DVT bilateral. The right great saphenous vein appears competent above the knee but incompetent below the knee. The accessory small saphenous vein in the right proximal calf and mid calf are incompetent. Accessory saphenous vein in the left proximal calf is incompetent. Discussed continued use of compression stockings to control lower extremity edema. He does routinely wear these. Discussed signs and symptoms of infection to observe. Discussed if he notices any redness about the wound sites that moves up the foot and onto the leg, or if he experiences purulent drainage from the wound sites, increasing foul odor from wound sites, darkened discoloration of the digits, or if he experiences fever greater than 101 degree, nausea, vomiting, chills that these are signs of a progressing infection and he needs to report to the ED. He voices understanding of this today. The following work up and care recommendations were made: Dressing: Kelly and dry sterile dressing Wash: Soap and water Tissue growth optimization: Kelly Offload: Ensure shoe gear does not rub dorsal digits Vascular: Weakly palpable DP and PT pulses with capillary fill time of 5 seconds. Updated LEAS was ordered 01/12/2023 Edema: No edema noted. Infection: No signs of infection. Pain: May take [id number] Tylenol for discomfort Host factors: DM type II with peripheral polyneuropathy, PAD, HTN, HLD, CAD, CVA, CABG. I answered all the patient's questions. To return to the wound healing center in 1 week or call sooner if the patient has any questions or concerns.
== END 2023-02-06 23:59 | disposition home or self-care (01) ==
LOC: WC 08:15
PROVIDERS: PCP Family Medicine; Referring Provider Internal Medicine Endocrinology, Diabetes & Metabolism; Visit Provider Student in an Organized Health Care Education/Training Program
DX: E11.621 Type 2 diabetes mellitus with foot ulcer (principal); E11.51 Type 2 diabetes mellitus with diabetic peripheral angiopathy without gangrene; L97.522 Non-pressure chronic ulcer of other part of left foot with fat layer exposed; E11.42 Type 2 diabetes mellitus with diabetic polyneuropathy; Z79.4 Long term (current) use of insulin; I10 Essential (primary) hypertension; Z79.02 Long term (current) use of antithrombotics/antiplatelets; Z79.82 Long term (current) use of aspirin; Z95.1 Presence of aortocoronary bypass graft; I25.10 Atherosclerotic heart disease of native coronary artery without angina pectoris; E78.5 Hyperlipidemia, unspecified; Z86.73 Personal history of transient ischemic attack (TIA), and cerebral infarction without residual deficits; Z79.899 Other long term (current) drug therapy; R60.0 Localized edema
CPT/HCPCS: 11042; 93970; 99213; G0463

== ENCOUNTER → 2023-02-10 | Outpatient (CLI) | payer OTHER, MEDICARE, SELFPAY ==
[2023-02-10 15:51] LABS: Anion Gap 8 (5-15); BUN 22 mg/dL (7-18); BUN/Creat Ratio 19.5 RATIO (10-20); Calcium,Total 8.8 mg/dL (8.5-10.1); Chloride 109 mmol/L (98-107); Creatinine, Serum 1.13 mg/dL (0.70-1.30); EST Glomerular Filtration Rate 69 mL/min (>60); Est Glom Filt Rate - Afr Amer 83 mL/min (>60); Glucose 116 mg/dL (74-106); Potassium 4.3 mmol/L (3.5-5.1); Sodium Level 142 mmol/L (136-145)
== END | disposition home or self-care (01) ==
LOC: MTLAB 13:34
PROVIDERS: PCP Family Medicine; Referring Provider Internal Medicine Endocrinology, Diabetes & Metabolism; Visit Provider Internal Medicine Endocrinology, Diabetes & Metabolism
DX: E11.42 Type 2 diabetes mellitus with diabetic polyneuropathy (principal)
CPT/HCPCS: 36415; 80048

== ENCOUNTER 2023-02-16 08:30 | Outpatient (RCR) | payer OTHER, MEDICARE, SELFPAY ==
[2023-02-07 00:09] VITALS: BP 126/76; PULSE 70; RESP 16; TEMP 35.5; BMI 30.6
[2023-02-07 13:49] VITALS: BP 157/76; PULSE 67; RESP 16; TEMP 35.6; BMI 30.6
[2023-02-16 08:29] VITALS: BP 133/69; PULSE 73; RESP 16; TEMP 35.6; BMI 30.6
--- NOTE | 2023-02-16 08:33 | PN.PCM_ITS ---
History of Present Illness Date of Service: 02/16/23 Chief Complaint: burn to right ring finger History of Wound: Shane is a pleasant 67 yo gentleman with PMHx of DM type II with peripheral polyneuropathy, HTN, HLD, CAD, CVA, CABG with stent placement. He presents to the wound center for evaluation and treatment of a dorsal second digit and third digit wound of the left foot which occurred approx. 3 weeks ago. He states that while in [place] 3 weeks ago he was exiting the pool and caught the top of his second and third toe against the step exiting the pool. He states he has been treating the abrasions with antibiotic ointment and Band- Aid. 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 He states this is down from 8.8. He was referred to the wound center for delayed wound healing of his second and third digit of the left foot. Subjective Subjective This is a 67-year-old male who follows up to the wound care center today for dorsal wounds of the second and third toe of the left foot. He states he has been changing the dressings daily to the toes. He denies any pain in the digits. Denies any constitutional symptoms. Denies further complaints. Objective Data Objective Data Vital Signs: Vital Signs Temp Pulse Resp BP O2 Del Method 96.0 F L 67 16 157/76 H Room Air 02/07/23 13:49 02/07/23 13:49 02/07/23 13:49 02/07/23 13:49 02/07/23 13:49 Oxygen Delivery Method Room Air Weight: 111.13 kg Body Mass Index (BMI) 30.6 Physical Exam Const alert, oriented x3 and no apparent distress General Appearance: cooperative HEENT normocephalic Eyes General Eye: normal appearance of both eyes Neck General: normal visual inspection Lymph Lymphatic: no lymphadenopathy noted and no lymphedema noted Resp normal respiratory effort Cardio regular rate and regular rhythm Extremity normal capillary refill, no joint enlargement, no calf tenderness and no pedal edema Extremity Narrative: DP and PT pulses weakly palpable bilateral with capillary fill time of 5 seconds to the digits. Dermatological: Dorsal second and third digit wound. Second digit has healed, third digit demonstrates healthy granular base. Wound sites demonstrate no erythema, no purulent drainage, no malodor, no palpable fluctuance/bogginess noted, no visible abscess formation, no lymphangitic streaking. Wound sites are stable. Musculoskeletal: Decreased range of motion of the ankle joint in dorsiflexion with the knee extended without pain and crepitus bilateral. Decreased range of motion to the first metatarsophalangeal joint without pain or crepitus bilateral. No pain to palpation about the second or third digit of the left foot. Skin no rashes or lesions noted, skin turgor normal and no jaundice Neuro moves all extremities Neuro Narrative: Decreased protective sensation to both feet secondary to diabetic peripheral polyneuropathy Debridement Note Debridement Note Wound debrided: Third digit left foot Laterality: Left Wound Grade/Stage: Ruth stage I Type of Debridement: Excisional debridement Anesthesia Used: 5% Lidocaine Gel Depth: Down to and including healthy tissue and in the subcutaneous layer Percentage of wound debrided: 100 Instrument Used: 3mm curette Tissue Removed: Fibrous, devitalized subcutaneous, biofilm, slough Severity: Fat Layer Exposed Amount of bleeding with debridement: Mild Bleeding Controlled with: Compression and gauze Patient tolerated procedure: Patient tolerated procedure well Post-Debridement Measurements and Additional Note: Post-Debridement Measurements/Treatment - Nurse 1 - General Ulcer Assessment Start: 02/07/23 13:49 Freq: Status: Active Protocol: LULI Activity Type Activity Date Activity User E-sign Co-sign Detail Recorded Client Recorded Date Recorded By Document 02/07/23 13:49 KW [id number] 02/07/23 13:58 KW 02/07/23 13:49 - Today's Visit Information Type of service Nurse-only Visit Arrival Mode Ambulatory Patient Identification Verified (Name & Yes ) Finger Stick Blood Sugar(mg/dl) (if 117 indicated): Blood Sugar Stated by Patient Height and Weight Body Mass Index (BMI) 30.6 BMI Classification Obese Vital Signs Temperature (97.8 F-99.1 F) 96.0 F L Temperature Source Temporal Pulse Rate (60-100) 67 Pulse Location Monitor Respiratory Rate (12-18) 16 Respiratory rate source Observation Oxygen Delivery Method Room Air Blood Pressure (90/60-120/80) 157/76 H Blood Pressure Mean (mm Hg) 103 Source Monitor Position Sitting Blood Pressure Location Right Arm History Since Last Visit- (Skip if this is Patient's initial visit) Have you changed medications since your No last visit? Any new allergies or adverse reactions No Had a fall/change in ADL's that may No increase risk of falls Signs or symptoms of abuse and/or No neglect since last visit Have you been in the hospital since your No last visit? Has dressing in place as prescribed Yes Has compression in place as prescribed No Has offloadiing in place as prescribed No Experienced any changes in pain level or No management Left Footwear Regular Shoe Right Footwear Regular Shoe Pain Scale: 0-10 Numeric Is Patient Pain Free? Yes MANA - Nurse 1 - General Ulcer Measurement Start: 02/07/23 13:49 Freq: Status: Active Protocol: Activity Type Activity Date Activity User E-sign Co-sign Detail Recorded Client Recorded Date Recorded By Document 02/07/23 13:49 [id number] 02/07/23 13:58 KW 02/07/23 13:49 Wound Center Nurse 1 #3 L 3rd toe -Current Size (cm) - Length 0.4 -Current Size (cm) - Width 0.4 -Current Size (cm) - Depth 0.1 -Total Square Cm 0.16 -Exudate Amt Small -Exudate Type Serosanguineous -Wound Margin Distinct, Outline Attached -Granulation Amt Small (1-33%) -Granulation Quality Red -Necrosis Amt Small (1-33%) -Necrotic Tissue Type Adherent Slough -Texture (Tonie-wound Skin Appearance) Assessed -Moisture (Tonie-wound Skin Appearance) Assessed -Color (Tonie-wound Skin Appearance) Assessed -Temperature (Tonie-wound Skin No Abnormality Appearance) (Pt Warm) -Ulcer Cleansing Rinsed/ Irrigated with Saline #2 l 2nd toe -Combined with (Name of Wound-Exactly .1 as it is documented) -Current Size (cm) - Length 0.1 -Current Size (cm) - Width 0.1 -Total Square Cm 0.01 -Wound Margin Distinct, Outline Attached -Ulcer Cleansing Rinsed/ Irrigated with Saline -Wound Comment(s) scabbed MANA - Nurse 3 - General Ulcer D/C NN Start: 02/07/23 13:49 Freq: Status: Active Protocol: Activity Type Activity Date Activity User E-sign Co-sign Detail Recorded Client Recorded Date Recorded By Document 02/07/23 14:00 KW [id number] 02/07/23 14:01 KW 02/07/23 14:00 Wound Care Center Nurse 3 #3 L 3rd toe -Ulcer Cleansing Rinsed/ Irrigated with Saline -Primary Dressing Applied Promogran Kelly Matter -Primary Dressing Covered/Secured with Dry Gauze, Secured with Tape -Promogran Kelly Matter 1 Pain Scale: 0-10 Numeric Is Patient Pain Free? Yes WC - Visit Discharge Discharge Condition Stable Ambulatory Status Ambulatory Transportation Private Auto Medication Reconcilliation completed & No provided to patient/care provider Clinical Summary of Care Provided Yes Assessment/Plan Assessment/Plan (1) Non-pressure chronic ulcer of other part of left foot with fat layer exposed: CODE(S): L97.522 - Non-pressure chronic ulcer of other part of left foot with fat layer exposed (2) Benign essential hypertension: CODE(S): I10 - Essential (primary) hypertension (3) Polyneuropathy due to type 2 diabetes mellitus: CODE(S): E11.42 - Type 2 diabetes mellitus with diabetic polyneuropathy (4) PAD (peripheral artery disease): CODE(S): I73.9 - Peripheral vascular disease, unspecified (5) S/P CABG x 3: CODE(S): Z95.1 - Presence of aortocoronary bypass graft PLAN: Plan Patient seen and evaluated Ulcerations underwent debridement as noted in the clinical panel above. Postdebridement wounds did demonstrate healthy granular layer with adequate bleeding. Left second digit has healed. Left third digit measures 0.4 cm x 0.4 cm x 0.1 cm. Ulcerative sites dressed with Kelly and dry sterile dressing. He is instructed to dress daily. Ulcerations are noted to demonstrate continued reduction in size from previous visit. Discussed his recent A1c of 8.0% which is down from 8.8%. Discussed he still has some work to do for striving for glycemic control. Recommended obtaining A1c as close to 6.5% as possible. Discussed proper diabetic diet. Stressed the importance of diabetic follow-ups with PCP/merchandising team lead for management of diabetes and community placement worker for overall foot evaluation. Discussed he is to not walk barefoot, socks include barefoot. Encouraged shoe gear to be worn at all times. He voices understanding of this discussion. Updated LEAS was ordered 01/12/2023, awaiting results. Patient reminded to complete ordered study. He did undergo venous study on 01/16/2023 demonstrating no evidence of DVT bilateral. The right great saphenous vein appears competent above the knee but incompetent below the knee. The accessory small saphenous vein in the right proximal calf and mid calf are incompetent. Accessory saphenous vein in the left proximal calf is incompetent. Discussed continued use of compression stockings to control lower extremity edema. He does routinely wear these. Discussed signs and symptoms of infection to observe. Discussed if he notices any redness about the wound sites that moves up the foot and onto the leg, or if he experiences purulent drainage from the wound sites, increasing foul odor from wound sites, darkened discoloration of the digits, or if he experiences fever greater than 101 degree, nausea, vomiting, chills that these are signs of a progressing infection and he needs to report to the ED. He voices understanding of this today. The following work up and care recommendations were made: Dressing: Kelly and dry sterile dressing Wash: Soap and water Tissue growth optimization: Kelly Offload: Ensure shoe gear does not rub dorsal digits Vascular: Weakly palpable DP and PT pulses with capillary fill time of 5 seconds. Updated LEAS was ordered 01/12/2023 Edema: No edema noted. Infection: No signs of infection. Pain: May take [id number] Tylenol for discomfort Host factors: DM type II with peripheral polyneuropathy, PAD, HTN, HLD, CAD, CVA, CABG. I answered all the patient's questions. To return to the wound healing center in 2 week or call sooner if the patient has any questions or concerns.
== END 2023-03-09 23:59 | disposition home or self-care (01) ==
LOC: WC 08:30
PROVIDERS: PCP Family Medicine; Referring Provider Internal Medicine Endocrinology, Diabetes & Metabolism; Visit Provider Student in an Organized Health Care Education/Training Program
DX: E11.621 Type 2 diabetes mellitus with foot ulcer (principal); E11.51 Type 2 diabetes mellitus with diabetic peripheral angiopathy without gangrene; L97.522 Non-pressure chronic ulcer of other part of left foot with fat layer exposed; E11.42 Type 2 diabetes mellitus with diabetic polyneuropathy; I25.10 Atherosclerotic heart disease of native coronary artery without angina pectoris; E78.5 Hyperlipidemia, unspecified; I10 Essential (primary) hypertension; Z95.1 Presence of aortocoronary bypass graft
CPT/HCPCS: 11042; 99211; G0463

== ENCOUNTER → 2023-03-29 | Outpatient (CLI) | payer OTHER, MEDICARE, SELFPAY ==
[2023-03-29 12:53] LABS: Hemoglobin A1c 6.4 % (3.8-5.6)
[2023-03-29 12:56] LABS: AST(SGOT) 35 U/L (15-37); Alanine Aminotransfer ALT/SGPT 56 U/L (16-61); Anion Gap 5 (5-15); BUN 20 mg/dL (7-18); BUN/Creat Ratio 17.9 RATIO (10-20); Calcium,Total 9.1 mg/dL (8.5-10.1); Chloride 109 mmol/L (98-107); Cholesterol 96 mg/dL (200); Creatinine, Serum 1.12 mg/dL (0.70-1.30); EST Glomerular Filtration Rate 70 mL/min (>60); Est Glom Filt Rate - Afr Amer 84 mL/min (>60); Glucose 107 mg/dL (74-106); High Density Lipoprotein 29 mg/dL; Potassium 4.3 mmol/L (3.5-5.1); Sodium Level 141 mmol/L (136-145); Triglycerides 173 mg/dL; Very Low Density Lipoprotein 35 mg/dL (5-40)
== END | disposition home or self-care (01) ==
PROVIDERS: PCP Family Medicine; Referring Provider Internal Medicine Endocrinology, Diabetes & Metabolism; Visit Provider Internal Medicine Endocrinology, Diabetes & Metabolism
DX: E11.42 Type 2 diabetes mellitus with diabetic polyneuropathy (principal); E78.2 Mixed hyperlipidemia
CPT/HCPCS: 36415; 80048; 80061; 83036; 84450; 84460

== ENCOUNTER → 2023-09-14 | Outpatient (CLI) | payer OTHER, MEDICARE, SELFPAY ==
--- OUTSIDE RECORDS SUMMARY | 2023-09-14 08:37 | XMS RPT_ITS | CCD ---
Author Name Unknown Address [address] [place] [address] Organization [facility] Care Team Providers Care Honey Liquefier Name Role Phone CALL, DAVE Shetty Attending Unavailable PRINCESS, SARIAH Primary Care Unavailable CHERI SMITH Attending Unavailable CHERI SMITH Admitting Unavailable CALL, DAVE Shetty Referring Unavailable PRINCESS, SARIAH Primary Care Unavailable PRINCESS, SARIAH Primary Care Unavailable CALL, DAVE Shetty Referring Unavailable Unavailable Primary Care Provider Unavailabl e Sariah Sánchez DO Primary Care Provider [phone] Candis Perez MD Unavailable Unavailable Dana Pabon CNP Unavailable No, Referral Unavailable Unavailable Candis Perez MD Unavailable Sariah Sánchez DO Primary Care Provider Sariah Sánchez DO Primary Care Provider Candis Perez MD Unavailable Sariah Sánchez DO Primary Care Provider No, Referral Unavailable Unavailable Candis Perez MD Unavailable PrincessSariah hewitt DO Primary Care Provider No, Referral Unavailable Unavailable Raymond Ndiaye DO Primary Care Provider [phone] Candis Perez MD Unavailable RAYMOND NDIAYE DO Primary Care Physician PAUL CELAYA MD Attending Unavail able RAYMOND NDIAYE DO Primary Care Unavailable Raymond Ndiaye DO Primary Care Provider GARRICK ARREDONDO Attending Unavailable RAYMOND NDIAYE Primary Care Unavailable RAYMOND NDIAYE Primary Care Unavailable DANA PABON Referring Unavailable RAYMOND NDIAYE Primary Care Unavailable DANA PABON Referring Unavailable RAYMOND NDIAYE Primary Care Unavailable DANA PABON Referring Unavailable SARIAH SÁNCHEZ [place] Primary Care Unavailable DANA PABON Attending Unavailable SARIAH SÁNCHEZ Primary Care Unavailable KANDIS SMALLS Referring Unavailable RAYMOND NDIAYE Primary Care Unavailable RAYMOND NDIAYE Primary Care Unavailable GARRICK ARREDONDO Referring Unavailable JUAN DIEGO DENSIE Attending Unavailable RAYMOND NDIAYE Primary Care Unavailable GARRICK ARREDONDO Referring Unavailable RAYMOND NDIAYE Primary Care Unavailable JUAN DIEGO BANG Attending Unavailable RAYMOND NDIAYE Primary Care Unavailable JUAN DIEGO BANG Attending Unavailable RAYMOND NDIAYE Primary Care Unavailable SELF Referring Unavailable Allergies Allergy Classification Reported Allergen(s) Allergy Type Date of Onset Reaction(s) Facility (3 sources) atorvastatin; Translations: [ATORVASTATIN] Drug Allergy 1 [facility] Work Phone: (20 sources) atorvastatin Drug Allergy 1 Other: See Comments [facility] (20 sources) nabumetone; Translations: [NABUMETONE] Drug Allergy 1 GI Upset [facility] (10 sources) ARIPiprazole; Translations: [ARIPIPRAZOLE] Drug Allergy 2 Other: See Comments [facility] Medications Current Medications Medication Drug Class(es) Dates Sig (Normalized) Sig (Original) clopidogrel 75 mg oral tablet (20 sources) [id number] Platelet Inhibitor Start: 2018 End: 02-09-2024 take 1 tablet by mouth once daily clopidogrel (PLAVIX) 75 mg tablet Take 1 tablet by mouth once daily. 90 tablet 3 02/09/2023 02/09/2024 Active Completed/Discontinued Medications Medication Drug Class(es) Dates Sig (Normalized) Sig (Original) acetaminophen 325 mg oral tablet (1 source) Start: 01-31-2021 End: 02-02-2021 take 1 tablet by mouth every six hours as needed acetaminophen (TYLENOL) tablet 650 mg acetaminophen 325 mg / oxyCODONE hydrochloride 5 mg oral tablet (20 sources) Opioid Agonist Start: 01-31-2021 End: 02-02-2021 take 1 tablet by mouth every six hours as needed oxyCODONE-acetamino phen (PERCOCET) 5-325 MG per tablet 1 tablet Problems Active Problems Problem Classification Problem Date Documented Da te Episodic/Chronic Acute cerebrovascular disease (20 sources) Cerebrovascular accident; Translations: [Cerebral infarction, unspecified] Onset: 7 04-13-2018 Chronic Acute myocardial infarction (4 sources) Myocardial infarction; Translations: [Non-ST elevation (NSTEMI) myocardial infarction] Onset: 1 Resolved: 1 Chronic Aortic; peripheral; and visceral artery aneurysms (20 sources) Aneurysm of ascending aorta; Translations: [Thoracic aortic aneurysm, without rupture] Onset: 3 01-31-2021 Chronic Biliary tract disease (17 sources) Mirizzi's syndrome; 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] Onset: 3 Chronic Chronic ulcer of skin (20 sources) Chronic ulcer of skin of ankle; Translations: [Non-pressure chronic ulcer of right ankle limited to breakdown of skin] Onset: 7 03-01-2017 Chronic Complication of device; implant or graft (20 sources) Arteriosclerosis of coronary artery bypass graft; Translations: [Atherosclerosis of coronary artery bypass graft(s) without angina pectoris] Onset: 1 01-31-2021 Chronic Conduction disorders (20 sources) Second degree atrioventricular block; Translations: [Atrioventricular block, second degree] Onset: 1 05-24-2021 Chronic Coronary atherosclerosis and other heart disease (2 sources) Coronary arteriosclerosis; Translations: [Atherosclerotic heart disease of [place] coronary artery without angina pectoris] Chronic Diabetes mellitus with complications (20 sources) Type 2 diabetes mellitus; Translations: [Type 2 diabetes mellitus with diabetic polyneuropathy] Onset: 7 04-13-2018 Chronic Diabetes mellitus without complication (3 sources) Type 1 diabetes mellitus; Translations: [Type 1 diabetes mellitus without complications] Onset: 1 01-31-2021 Chronic Disorders of lipid metabolism (20 sources) Mixed hyperlipidemia; Translations: [Mixed hyperlipidemia] Onset: 7 04-13-2018 Chronic Esophageal disorders (8 sources) Gastroesophageal reflux disease; Translations: [Gastro-esophageal reflux disease without esophagitis] Onset: 3 02-23-2023 Chronic Essential hypertension (20 sources) Essential hypertension; Translations: [Essential (primary) hypertension] Onset: 7 04-13-2018 Chronic Headache; including migraine (8 sources) Migraine; Translations: [Migraine, unspecified, not intractable, without status migrainosus] Onset: 3 02-23-2023 Chronic Malaise and fatigue (1 source) Asthenia; Translations: [Weakness] Onset: 3 Episodic Occlusion or stenosis of precerebral arteries (20 sources) Occlusion of right vertebral artery; Translations: [Occlusion and stenosis of right vertebral artery] Onset: 7 Chronic Open wounds of extremities (1 source) Open wound of finger; Translations: [Unspecified open wound of unspecified finger without damage to nail, initial encounter] Episodic Other circulatory disease (1 source) History of transient ischemic attack; Translations: [Personal history of transient ischemic attack (TIA), and cerebral infarction without residual deficits] Onset: 3 Episodic Other circulatory disease (2 sources) Orthostatic hypotension; Translations: [Orthostatic hypotension] Onset: 4 08-31-2023 Episodic Other gastrointestinal disorders (20 sources) Irritable bowel syndrome; Translations: [Irritable bowel syndrome without diarrhea] Onset: 7 02-26-2017 Chronic Other gastrointestinal disorders (20 sources) Diarrhea; Translations: [Diarrhea, unspecified] 01-24-2014 Episodic Other nutritional; endocrine; and metabolic disorders (20 sources) Obese class I; Translations: [Obesity, unspecified] Onset: 8 01-31-2021 Chronic Other nutritional; endocrine; and metabolic disorders (8 sources) Conjugated hyperbilirubinemia; Translations: [Other disorders of bilirubin metabolism] Onset: 3 02-23-2023 Chronic Paralysis (12 sources) Left hemiparesis; Translations: [Hemiplegia, unspecified affecting left nondominant side] Onset: 3 02-09-2023 Chronic Peripheral and visceral atherosclerosis (10 sources) Peripheral vascular disease, unspecified; Translations: [Peripheral vascular disease, unspecified] Onset: 3 02-23-2023 Chronic Residual codes; unclassified (20 sources) Obstructive sleep apnea syndrome; Translations: [Obstructive sleep apnea (adult) (pediatric)] Onset: 7 05-24-2021 Chronic Spondylosis; intervertebral disc disorders; other back problems (5 sources) Spinal stenosis of lumbar region; Translations: [Spinal stenosis, lumbar region with neurogenic claudication] Onset: 3 05-01-2023 Episodic Transient cerebral ischemia (2 sources) Cerebral ischemia; Translations: [Transient cerebral ischemic attack, unspecified] Onset: 1 01-31-2021 Chronic Unclassified (20 sources) SUMMARY Onset: 7 03-01-2017 Unclassified (1 source) Acute cough; Translations: [Acute cough] Onset: 4 Unclassified (1 source) Aneurysm of ascending aorta without rupture (HCC); Translations: [Aneurysm of ascending aorta without rupture (HCC)] Onset: 3 Unclassified (1 source) Infrarenal abdominal aortic aneurysm (AAA) without rupture (HCC); Translations: [Infrarenal abdominal aortic aneurysm (AAA) without rupture (HCC)] Onset: 8 Past or Other Problems Problem Classification Problem Date Documented Date Episodic/Chronic Abdominal pain (8 sources) Abdominal pain; Translations: [Unspecified abdominal pain] Onset: 02-23-2023 02-23-2023 Episodic Acute and unspecified renal failure (8 sources) Acute nontraumatic kidney injury; Translations: [Acute kidney failure, unspecified] Onset: 02-23-2023 02-23-2023 Episodic Biliary tract disease (9 sources) Gallbladder calculus with acute cholecystitis and obstruction; Translations: [Calculus of gallbladder with acute and chronic cholecystitis with obstruction] Onset: 02-23-2023 Episodic Conditions associated with dizziness or vertigo (20 sources) Postural dizziness; Translations: [Dizziness and giddiness] Onset: 04-12-2018 04-13-2018 Episodic Coronary atherosclerosis and other heart disease (8 sources) Stented coronary artery; Translations: [Presence of coronary angioplasty implant and graft] Onset: 01-26-2022 02-23-2023 Episodic Fracture of lower limb (8 sources) Unspecified fracture of lower end of right tibia, subsequent encounter for open fracture type IIIA, IIIB, or IIIC with nonunion; Translations: [Nonunion of fracture] Onset: 02-07-2023 02-23-2023 Episodic Headache; including migraine (20 sources) Headache; Translations: [PLAZA (headache)] Onset: 05-24-2021 05-24-2021 Episodic Other aftercare (8 sources) Patient encounter status; Translations: [Encounter for follow-up examination after completed treatment for conditions other than malignant neoplasm] Onset: 12-27-2022 02-23-2023 Episodic Other circulatory disease (8 sources) H/O: hypertension; Translations: [Personal history of other diseases of the circulatory system] Onset: 02-23-2023 02-23-2023 Episodic Other circulatory disease (9 sources) History of cerebrovascular accident; Translations: [Personal history of transient ischemic attack (TIA), and cerebral infarction without residual deficits] Onset: 02-23-2023 02-23-2023 Episodic Other connective tissue disease (19 sources) Weakness of left leg; Translations: [Other symptoms and signs involving the musculoskeletal system] Onset: 01-04-2017 01-04-2017 Episodic Other connective tissue disease (20 sources) Fibromyalgia; Translations: [Fibromyalgia] Onset: 02-26-2017 02-26-2017 Episodic Other connective tissue disease (15 sources) Other symptoms and signs involving the musculoskeletal system; Translations: [Other musculoskeletal symptoms referable to limbs] Onset: 01-04-2017 01-04-2017 Episodic Other diseases of veins and lymphatics (10 sources) Venous stasis; Translations: [Other specified disorders of veins] Onset: 03-19-2013 01-31-2021 Episodic Other disorders of stomach and duodenum (8 sources) Gastroparesis syndrome; Translations: [Gastroparesis] Onset: 07-14-2020 02-23-2023 Episodic Other liver diseases (8 sources) Jaundice; Translations: [Unspecified jaundice] Onset: 02-23-2023 02-23-2023 Episodic Other nutritional; endocrine; and metabolic disorders (2 sources) Body mass index 30+ - obesity; Translations: [Body mass index (BMI) 35.0-35.9, adult] Onset: 05-28-2013 Resolved: 02-02-2021 01-31-2021 Chronic Other nutritional; endocrine; and metabolic disorders (20 sources) H/O: gastrointestinal disease; Translations: [Personal history of other endocrine, nutritional and metabolic disease] Onset: 05-24-2021 05-24-2021 Episodic Other nutritional; endocrine; and metabolic disorders (8 sources) History of diabetes mellitus type 2; Translations: [Personal history of other endocrine, nutritional and metabolic disease] Onset: 02-23-2023 02-23-2023 Episodic Other upper respiratory infections (8 sources) Acute sinusitis; Translations: [Acute sinusitis, unspecified] Onset: 02-23-2023 02-23-2023 Episodic Results Test Name Value Interpretation Reference Range Facil ity Vital Signs Date Time Vital Sign Value Performing Clinician Facility 08-31-2023 15:15-0500 Body height 190.5 cm Juan Diego Bang MD Work Phone: [facility] 08-31-2023 15:15-0500 Body weight 110.22 kg Juan Diego Bang MD Work Phone: [facility] 08-31-2023 15:15-0500 Diastolic blood pressure 70 mm[Hg] Juan Diego Bang MD Work Phone: [facility] 08-31-2023 15:15-0500 Heart rate 74 /min Juan Diego Bang MD Work Phone: [facility] 08-31-2023 15:15-0500 SaO2% (BldA) [Mass fraction] 99 % Juan Diego Bang MD Work Phone: [facility] 08-31-2023 15:15-0500 Systolic blood pressure 131 mm[Hg] Juan Diego Bang MD Work Phone: [facility] 06-07-2023 08:56-0500 Body height 190.5 cm Juan Diego Denise PA-C Work Phone: [facility] 06-07-2023 08:56-0500 Body weight 111.58 kg Juan Diego Denise PA-C Work Phone: [facility] 06-07-2023 08:56-0500 Diastolic blood pressure 62 mm[Hg] Juan Diego Denise PA-C Work Phone: [facility] 06-07-2023 08:56-0500 Heart rate 70 /min Juan Diego Denise PA-C Work Phone: [facility] 06-07-2023 08:56-0500 SaO2% (BldA) [Mass fraction] 98 % Juan Diego Denise PA-C Work Phone: [facility] 06-07-2023 08:56-0500 Systolic blood pressure 144 mm[Hg] Juan Diego Denise PA-C Work Phone: [facility] 05-01-2023 12:43-0400 Body weight 109.77 kg Garrick Arredondo MD Work Phone: [facility] 05-01-2023 12:43-0400 Diastolic blood pressure 74 mm[Hg] Garrick Arredondo MD Work Phone: [facility] 05-01-2023 12:43-0400 Heart rate 67 /min Garrick Arredondo MD Work Phone: [facility] 05-01-2023 12:43-0400 Systolic blood pressure 131 mm[Hg] Garrick Arredondo MD Work Phone: [facility] 04-28-2023 18:31-0400 Diastolic Blood Pressure Non-Invasive 81 1 PAUL CELAYA MD [facility] 04-28-2023 18:31-0400 Heart rate 71 /min PAUL CELAYA MD [facility] 04-28-2023 18:31-0400 Respiratory rate 18 /min PAUL CELAYA MD [facility] 04-28-2023 18:31-0400 Systolic Blood Pressure Non-Invasive 15 1 PAUL CELAYA MD [facility] 04-28-2023 18:00-0400 Diastolic Blood Pressure Non-Invasive 60 1 PAUL CELAYA MD [facility] 04-28-2023 18:00-0400 Heart rate 69 /min PAUL CELAYA MD [facility] 04-28-2023 18:00-0400 Systolic Blood Pressure Non-Invasive 132 1 PAUL CELAYA MD [facility] 04-28-2023 17:30-0400 Diastolic Blood Pressure Non-Invasive 65 1 PAUL CELAYA MD [facility] 04-28-2023 17:30-0400 Heart rate 73 /min PAUL CELAYA MD [facility] 04-28-2023 17:30-0400 Respiratory rate 20 /min PAUL CELAYA MD [facility] 04-28-2023 17:30-0400 Systolic Blood Pressure Non-Invasive 149 1 PAUL CELAYA MD [facility] 04-28-2023 17:01-0400 Heart rate 89 /min PAUL CELAYA MD [facility] 04-28-2023 16:28-0400 Body height 190.5 cm PAUL CELAYA MD [facility] 04-28-2023 16:28-0400 Body temperature 97.52 [degF] PAUL CELAYA MD [facility] 04-28-2023 16:28-0400 Body weight 109.6 kg PAUL CELAYA MD [facility] 04-28-2023 16:28-0400 Heart rate 82 /min PAUL CELAYA MD [facility] 02-23-2023 12:35-0400 Body height 190.5 cm Juan Diego Bang MD Work Phone: [facility] 02-23-2023 12:35-0400 Body weight 111.58 kg Juan Diego Bang MD Work Phone: [facility] 02-23-2023 12:35-0400 Diastolic blood pressure 86 mm[Hg] Juan Diego Bang MD Work Phone: [facility] 02-23-2023 12:35-0400 Heart rate 68 /min Juan Diego Bang MD Work Phone: [facility] 02-23-2023 12:35-0400 SaO2% (BldA) [Mass fraction] 98 % Juan Diego Bang MD Work Phone: [facility] 02-23-2023 12:35-0400 Systolic blood pressure 165 mm[Hg] Juan Diego Bang MD Work Phone: [facility] 02-09-2023 08:40-0400 Body height 190.5 cm Dana Pabon APRN.BROADCAST MAINTENANCE ENGINEER Work Phone: [facility] 02-09-2023 08:40-0400 Body weight 111.68 kg Dana Pabon APRN.BROADCAST MAINTENANCE ENGINEER Work Phone: [facility] 02-09-2023 08:40-0400 Respiratory rate 18 /min Dana Pabon APRN.BROADCAST MAINTENANCE ENGINEER Work Phone: [facility] 02-09-2023 08:40-0400 SaO2% (BldA) [Mass fraction] 97 % Dana Pabon APRN.BROADCAST MAINTENANCE ENGINEER Work Phone: [facility] 09-28-2022 16:20-0400 Body temperature 97.2 [degF] Rufino Ornelas APRN.BROADCAST MAINTENANCE ENGINEER Work Phone: [facility] 09-28-2022 16:20-0400 Body weight 114.49 kg Rufino Ornelas APRN.BROADCAST MAINTENANCE ENGINEER Work Phone: [facility] 09-28-2022 16:20-0400 Diastolic blood pressure 84 mm[Hg] Rufino Johnson SYSTEM DISPATCHER.BROADCAST MAINTENANCE ENGINEER Work Phone: [facility] 09-28-2022 16:20-0400 Heart rate 70 /min Rufino Johnson SYSTEM DISPATCHER.BROADCAST MAINTENANCE ENGINEER Work Phone: [facility] 09-28-2022 16:20-0400 Respiratory rate 16 /min Rufino Johnson SYSTEM DISPATCHER.BROADCAST MAINTENANCE ENGINEER Work Phone: [facility] 09-28-2022 16:20-0400 SaO2% (BldA) [Mass fraction] 99 % Rufino Johnson SYSTEM DISPATCHER.BROADCAST MAINTENANCE ENGINEER Work Phone: [facility] 09-28-2022 16:20-0400 Systolic blood pressure 148 mm[Hg] Rufino Johnson SYSTEM DISPATCHER.BROADCAST MAINTENANCE ENGINEER Work Phone: [facility] 01-04-2022 10:13-0400 Body height 190.5 cm Candis Perez MD Work Phone: [facility] 01-04-2022 10:13-0400 Body weight 112.04 kg Candis Perez MD Work Phone: [facility] 01-04-2022 10:13-0400 Diastolic blood pressure 58 mm[Hg] Candis Perez MD Work Phone: [facility] 01-04-2022 10:13-0400 Heart rate 70 /min Candis Perez MD Work Phone: [facility] 01-04-2022 10:13-0400 Respiratory rate 12 /min Candis Perez MD Work Phone: [facility] 01-04-2022 10:13-0400 SaO2% (BldA) [Mass fraction] 99 % Candis Perez MD Work Phone: [facility] 01-04-2022 10:13-0400 Systolic blood pressure 128 mm[Hg] Candis Perez MD Work Phone: [facility] 11-29-2021 11:30-0400 Body height 193 cm Van Fagert SYSTEM DISPATCHER.BROADCAST MAINTENANCE ENGINEER Work Phone: [facility] 11-29-2021 11:30-0400 Body temperature 96.8 [degF] Van Fagert SYSTEM DISPATCHER.BROADCAST MAINTENANCE ENGINEER Work Phone: [facility] 11-29-2021 11:30-0400 Body weight 110.68 kg Van Fagert SYSTEM DISPATCHER.BROADCAST MAINTENANCE ENGINEER Work Phone: [facility] 11-29-2021 11:30-0400 Diastolic blood pressure 57 mm[Hg] Van Fagert SYSTEM DISPATCHER.BROADCAST MAINTENANCE ENGINEER Work Phone: [facility] 11-29-2021 11:30-0400 Heart rate 76 /min Van Fagert SYSTEM DISPATCHER.BROADCAST MAINTENANCE ENGINEER Work Phone: [facility] 11-29-2021 11:30-0400 Respiratory rate 14 /min Van Fagert SYSTEM DISPATCHER.BROADCAST MAINTENANCE ENGINEER Work Phone: [facility] 11-29-2021 11:30-0400 SaO2% (BldA) [Mass fraction] 97 % Van Fagert SYSTEM DISPATCHER.BROADCAST MAINTENANCE ENGINEER Work Phone: [facility] 11-29-2021 11:30-0400 Systolic blood pressure 118 mm[Hg] Van Fagert SYSTEM DISPATCHER.BROADCAST MAINTENANCE ENGINEER Work Phone: [facility] 11-09-2021 10:03-0400 Body height 193 cm Lidya [place] PA-C Work Phone: [facility] 11-09-2021 10:03-0400 Body temperature 96.6 [degF] Lidya [place] PA-C Work Phone: [facility] 11-09-2021 10:03-0400 Body weight 111.4 kg Lidya [place] PA-C Work Phone: [facility] 11-09-2021 10:03-0400 Diastolic blood pressure 80 mm[Hg] Lidya Paramjit PA-C Work Phone: [facility] 11-09-2021 10:03-0400 Heart rate 79 /min Lidya Maynardf PA-C Work Phone: [facility] 11-09-2021 10:03-0400 SaO2% (BldA) [Mass fraction] 98 % Lidya Maynardf PA-C Work Phone: [facility] 11-09-2021 10:03-0400 Systolic blood pressure 130 mm[Hg] Lidya Maynardf PA-C Work Phone: [facility] 02-02-2021 11:21-0400 Body temperature 97.7 [degF] Cheri Smith MD Work Phone: [facility] 02-02-2021 11:21-0400 Diastolic blood pressure 79 mm[Hg] Cheri Smith MD Work Phone: [facility] 02-02-2021 11:21-0400 Heart rate 75 /min Cheri Smith MD Work Phone: [facility] 02-02-2021 11:21-0400 Respiratory rate 20 /min Cheri Smith MD Work Phone: [facility] 02-02-2021 11:21-0400 SaO2% (BldA) [Mass fraction] 97 % Cheri Smith MD Work Phone: [facility] 02-02-2021 11:21-0400 Systolic blood pressure 131 mm[Hg] Cheri Smith MD Work Phone: [facility] 02-02-2021 07:12-0400 Body height 190.5 cm Cheri Smith MD Work Phone: [facility] 02-02-2021 07:12-0400 Body mass index (BMI) [Ratio] 32.5 kg/m2 Cheri Smith MD Work Phone: [facility] 02-02-2021 07:12-0400 Body weight 117.94 kg Cheri Smith MD Work Phone: [facility] 01-31-2021 18:24-0400 Diastolic blood pressure 77 mm[Hg] Dave Call DO Work Phone: [facility] 01-31-2021 18:24-0400 Heart rate 91 /min Dave Call DO Work Phone: [facility] 01-31-2021 18:24-0400 Respiratory rate 20 /min Dave Call DO Work Phone: [facility] 01-31-2021 18:24-0400 SaO2% (BldA) [Mass fraction] 98 % Dave Call DO Work Phone: [facility] 01-31-2021 18:24-0400 Systolic blood pressure 127 mm[Hg] Dave Call DO Work Phone: [facility] 01-31-2021 15:15-0400 Body height 190.5 cm Dave Call DO Work Phone: [facility] 01-31-2021 15:13-0400 Body temperature 97.9 [degF] Dave Call DO Work Phone: [facility] Encounters Encounter Date Encounter Type Care Provider Facility Start: 08-31-2023 End: 08-31-2023 ambulatory JUAN DIEGO BANG Facility:[facility] Start: 08-31-2023 End: 08-31-2023 Patient encounter procedure Juan Diego Bang MD Work Phone: [facility] Procedures Date Procedure Procedure Detail Performing Clinician Start: 05-29-2023 Mri spinal canal lum bar w/o contrast material Garrick Arredondo MD Work Phone: Start: 02-23-2023 History of coronary artery bypass grafting S/P CABG x 3 Juan Diego Bang MD Work Phone: Start: 12-13-2021 Ct angiography head w/contrast/noncontrast Alvarado Russo APRN.CNP Work Phone: Start: 11-29-2021 Transcranial doppler stdy intracranial art lmtd Dana Pabon SYSTEM DISPATCHER.BROADCAST MAINTENANCE ENGINEER Work Phone: Start: 11-26-2021 Adult depression scr eening assessment Alvarado Rafaela SYSTEM DISPATCHER.BROADCAST MAINTENANCE ENGINEER Work Phone: Start: 07-06-2021 Ecg routine ecg w/le ast 12 lds i&r only Start: 06-21-2021 Adult depression scr eening assessment Dana Pabon SYSTEM DISPATCHER.BROADCAST MAINTENANCE ENGINEER Work Phone: Start: 02-02-2021 Echo tthrc r-t 2d w/ wom-mode compl spec&colr d Jes Benton MD Work Phone: Start: 02-02-2021 CONTINUOUS CARDIAC MONITORING STRIP Other Other Start: 02-02-2021 Glucose measurement, blood Cheri Smith MD Work Phone: Start: 02-02-2021 Assay of magnesium Cedric Benton MD Work Phone: Start: 02-01-2021 Glucose measurement, blood Cheri Smith MD Work Phone: Start: 02-01-2021 Glucose measurement, blood Cheri Smith MD Work Phone: Start: 02-01-2021 Cardiac catheterization Cheri Smith MD Work Phone: Start: 02-01-2021 Cath placement & njx coronary art angio img s&i Cheri Smith MD Work Phone: Start: 02-01-2021 Glucose measurement, blood Cheri Smith MD Work Phone: Start: 02-01-2021 HIGH SENSITIVITY TRO PONIN I X2 Jes Benton MD Work Phone: Start: 02-01-2021 Thromboplastin time partial plasma/whole blood Jes Benton MD Work Phone: Start: 02-01-2021 TROPONIN I INITIAL Cedric Benton MD Work Phone: Start: 02-01-2021 CONTINUOUS CARDIAC MONITORING STRIP Other Other Start: 02-01-2021 ABORH TYPE RECONFIRMATION Cori Shipman MD Work Phone: Start: 02-01-2021 Glucose measurement, blood Cheri Smith MD Work Phone: Start: 02-01-2021 End: 02-01-2021 Antibody screen Cheri Smith MD Work Phone: Plan of Treatment Date Care Activity Detail Author Start: 01-31-2026 Fasting lipid profile LIPID SCREENING [facility] Start: 02-11-2024 Hepatitis B surface antibody level LDL CHOLESTEROL [facility] Start: 12-11-2023 End: 03-11-2024 Comprehensive metabolic 2000 panel - Serum or Plasma COMP METABOLIC PANEL Lab Routine 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[place] heart with stable angina pectoris (HCC) Mixed hyperlipidemia Expected: 12/11/2023, Expires: 03/11/2024 [facility] Work Phone: Immunizations Immunization Date Immunization Notes Care Provider [facility] 04-07-2022 influenza (HD-IIV4) vaccine, age 65+ yr, high dose, quadrivalent, PF (FLUZONE HIGH-DOSE) Juan Diego Bang MD Work Phone: [facility] 04-07-2022 influenza virus vacc ine, unspecified formulation Dana Pabon APRN.CNP Work Phone: [facility] 05-04-2021 influenza, injectabl e, quadrivalent, preservative free Juan Diego Bang MD Work Phone: [facility] 05-04-2021 pneumococcal polysaccharide vaccine, 23 valent Juan Diego Bang MD Work Phone: [facility] 03-26-2020 Seasonal, quadrivale nt, recombinant, injectable influenza vaccine, preservative free Juan Diego Bang MD Work Phone: [facility] 05-02-2019 influenza, seasonal, injectable Juan Diego Bang MD Work Phone: [facility] 04-23-2018 influenza, seasonal, injectable Juan Diego Bang MD Work Phone: [facility] 05-02-2017 influenza, seasonal, injectable Juan Diego Bang MD Work Phone: [facility] 04-28-2016 influenza, seasonal, injectable Juan Diego Bang MD Work Phone: [facility] 04-28-2016 pneumococcal polysaccharide vaccine, 23 valent Juan Diego Bang MD Work Phone: [facility] 04-17-2015 influenza, seasonal, injectable Juan Diego Bang MD Work Phone: [facility] 06-09-2014 influenza, seasonal, injectable Juan Diego Bang MD Work Phone: [facility] 03-26-2013 influenza, seasonal, injectable Juan Diego Bang MD Work Phone: [facility] Payers Date Payer Category Payer Unknown [id number] 2014 Unknown 2014 Unknown [id number] 2010 Medicare MEDICARE MEDICAR E A AND B [id number] 2010-Present [phone] [place] [address] Medicare [id number] 2010 Medicare MEDICARE MEDICAR E A AND B [id number] 2010-Present [phone] [place] [address] Medicare [id number] 2010 Medicare [id number] 1955 Unknown [id number] 1955 Unknown [id number] 1955 Unknown [id number] Social History Date Type Detail Facility Tobacco smoking stat us TNIS Tobacco smoking consumption unknown [facility] Start: 1955 Sex Assigned At Not on file H [facility] Start: 01-31-2021 End: 09-28-2022 Tobacco smoking status NHIS Never smoker [facility] Start: 01-31-2021 End: 09-28-2022 Tobacco use and exposure Never used [facility] Start: 01-31-2021 End: 02-02-2021 Alcohol intake Lifetime non-drinker (finding) [facility] Start: 01-31-2021 History SDOH Alcohol Frequency 1 [facility] Start: 10-03-2021 End: 01-04-2022 Exposure to SARS-CoV-2 (event) Not sure [facility] Start: 06-26-2021 End: 11-01-2021 Alcohol intake Current non-drinker of alcohol (finding) [facility] Start: 1955 Sex Assigned At Male [facility] Start: 11-29-2021 End: 08-31-2023 Alcohol intake Current drinker of alcohol (finding) [facility] Start: 11-29-2021 History SDOH Alcohol Comment seldomly, 1 beer per month [facility] Start: 01-10-2022 End: 01-20-2022 Exposure to SARS-CoV-2 (event) Unable to assess [facility] Start: 02-09-2023 End: 06-05-2023 History of Social function [facility] Start: 02-09-2023 End: 06-05-2023 Tobacco use panel [facility] Adult Depression Screening Assessment 5 [facility] Start: 11-11-2020 Gender identity Identifies as male gender (finding) [facility] Medical Equipment Procedure Code Equipment Code Equipment Origin al Text Equipment Identifier Dates Stent Synergy Monorail 4mm 2.6-2.1fr Everolimus [place] Chromium Plga 12mm - [id number] Start: 05-25-2021 Stent Synergy Monorail 4mm 2.6-2.1fr Everolimus [place] Chromium Plga 12mm - [id number] Start: 06-01-2021 Functional Status Date Assessment Result Facility 04-28-2023 Functional Status Up ad grzegorz [facility] 04-28-2023 Functional Status Standard Safet y ID band on, Call device within reach, Bed in low position, Wheels locked, Upper/Half-Length side-rails up, Visitor at bedside [facility] Mental Status Date Assessment Result Facility 04-28-2023 Mental Status Orientation Oriented x 4 [facility] 04-28-2023 Mental Status [facility] Clinical Notes 11-10-2016 to 08-31-2023 Patient InstructionsJuan Diego Bang MD - 08/31/2023 3:40 PM ESTPatient InstructionsJuan Diego Denise PA-C - 06/07/2023 8:38 AM Yanet Blake RT(Abdirashid) - 05/29/2023 8:00 AM ESTPatient Instructions Note Date & Type Note Facility 08-31-2023 Note HNO ID: [id number] Author: JUAN DIEGO BANG MD Service: ? Author Type: Physician Type: Progress Notes Filed: 08/31/2023 17:10 Note Text: [facility] Cardiology [place] ([facility] ([facility])) [address] [address] OUTPATIENT VISIT DATE 08/31/2023 PRIMARY CARE PHYSICIAN: Raymond Ndiaye [address] [facility] [address] [place] [address] HISTORY OF PRESENT ILLNESS: Mr. Jose is a 63 year old gentleman with extensive cardiovascular history. He had undergone remote coronary bypass grafting in 2001 with most recent coronary intervention in 2021. He also has a history of carotid artery disease with an occluded left carotid artery and history of right carotid artery stenting. He is treated for hypertension, dyslipidemia and paroxysmal atrial fibrillation. He presents the office for routine follow-up. He continues to struggle with symptoms due to orthostatic hypotension. He has frequent episodes of dizziness while standing. His blood pressure is often 90 mmHg systolic in the standing position. They have held his Coreg in hopes of reducing his symptoms. However, he has had no improvement off Coreg therapy. He has not had symptoms of chest pain or pressure. Although, he has been somewhat sedentary. He has not had symptoms concerning for congestive heart failure including PND, orthopnea, or lower extremity edema. PAST CARDIAC HISTORY: history of CAD s/p CABG (2001), s/p PCI to LMT-ostial Lcx and SVG-RCA (2016), s/p PCI LCx 2018, stroke, carotid stenosis, HTN, HLD and COVID Jun 2020 PAST MEDICAL HISTORY Diagnosis Date Aortic aneurysm (HCC) Carotid artery stenosis Coronary artery disease Depression Diabetes (HCC) A1C >8.0 06/2021 Diarrhea Dyslipidemia long standing history Fibromyalgia Heart disease High cholesterol Hypertension Longstanding history Infrarenal abdominal aortic aneurysm, without rupture ([facility]) Obesity, Class I, BMI 30-34.9 04/12/2018 Paroxysmal atrial fibrillation (HCC) 10/06/2016 Stroke ([facility]) Suspected obstructive sleep apnea syndrome 02/26/2017 PAST SURGICAL HISTORY Procedure Laterality Date ANES OPEN/SURG ARTHROSCOPIC PROC KNEE JOINT NOS Right ANKLE ARTHROSCOPY/SURGERY Left APPENDECTOMY COLONOSCOPY FLX DX W/COLLJ SPEC WHEN PFRMD 05/30/2013 Colonoscopy HEART SURGERY HX Triple bypas L'SCOPE CHOLECYSTECTOMY 10/30/2021 TONSILLECTOMY HX SOCIAL HISTORY Social History Tobacco Use Smoking status: Never Smokeless tobacco: Never Substance Use Topics Alcohol use: Yes Comment: seldomly, 1 beer per month Drug use: No FAMILY HISTORY Problem Relation Age of Onset other (lung cancer) Father Diabetes Mother other (pancreatic cancer) Mother ALLERGIES: ALLERGIES Allergen Reactions Atorvastatin Other: See Comments Other reaction(s): Muscle aches Nabumetone GI Upset Aripiprazole Other: See Comments MEDICATIONS: benzonatate (TESSALON PERLES) 100 mg capsule Take 1 capsule by mouth three times a day as needed for cough. aspirin, enteric coated (ASPIRIN, ENTERIC COATED) 81 mg EC tablet Take 81 mg by mouth once daily. JARDIANCE 10 mg tablet metFORMIN ER (GLUCOPHAGE XR) 500 mg 24 hr tablet ondansetron orally disintegrating (ZOFRAN ODT) 4 mg disintegrating tablet Take by mouth. rosuvastatin (CRESTOR) 40 mg tablet Take 1 tablet by mouth once daily. clopidogrel (PLAVIX) 75 mg tablet Take 1 tablet by mouth once daily. gabapentin (NEURONTIN) 600 mg tablet Take 600 mg by mouth once daily as needed (in the morning). insulin glargine (LANTUS SOLOSTAR U-100 INSULIN) 100 unit/mL (3 mL) Inject 50 Units subcutaneously twice daily. (Patient taking differently: Inject 30 Units subcutaneously two times a day.) carvedilol (COREG) 6.25 mg tablet Take 6.25 mg by mouth twice daily with meals. plecanatide (TRULANCE) 3 mg tablet Take 3 mg by mouth as needed. pantoprazole DR (PROTONIX) 40 mg tablet TAKE 1 TABLET BY MOUTH ONCE DAILY IN THE MORNING BEFORE A MEAL fexofenadine (JESSICA) 180 mg tablet Take 180 mg by mouth once daily as needed. nitroglycerin sublingual (NITROQUICK) 0.4 mg SL tablet Dissolve 1 tablet under the tongue as needed for Chest Pain. insulin aspart (NOVOLOG FLEXPEN) 100 unit/mL inpn Inject 20 Units subcutaneously three times daily with meals. gabapentin (NEURONTIN) 300 mg capsule Take 300 mg by mouth three times a day. (Patient not taking: Reported on 08/31/2023) lisinopril (ZESTRIL) 5 mg tablet DAILY (Patient not taking: Reported on 08/03/2023) metoprolol tartrate, short acting, (LOPRESSOR) 25 mg tablet Take by mouth. (Patient not taking: Reported on 06/07/2023) aspirin 325 mg tablet Take 325 mg by mouth once daily. (Patient not taking: Reported on 06/07/2023) REVIEW OF SYSTEMS: Review of Systems Constitutional: Positive for malaise/fatigue. Negative f (more content not included)... [facility] 08-31-2023 Instructions Juan Diego Bang MD - 08/31/2023 4:00 PM EST You have a follow up in Feb at the [facility] location Repeat fasting blood work in documented in this encounter [facility] 08-31-2023 History of Present illness Narrative Images from the original note were not included. [facility] SE[facility] Cardiology [place] ([facility] [address] [id number] OUTPATIENT VISIT DATE 08/31/2023 PRIMARY CARE PHYSICIAN: Raymond Ferris [address] [place] [address] HISTORY OF PRESENT ILLNESS: Mr. Jose is a 63 year old gentleman with extensive cardiovascular history. He had undergone remote coronary bypass grafting in 2001 with most recent coronary intervention in 2021. He also has a history of carotid artery disease with an occluded left carotid artery and history of right carotid artery stenting. He is treated for hypertension, dyslipidemia and paroxysmal atrial fibrillation. He presents the office for routine follow-up. He continues to struggle with symptoms due to orthostatic hypotension. He has frequent episodes of dizziness while standing. His blood pressure is often 90 mmHg systolic in the standing position. They have held his Coreg in hopes of reducing his symptoms. However, he has had no improvement off Coreg therapy. He has not had symptoms of chest pain or pressure. Although, he has been somewhat sedentary. He has not had symptoms concerning for congestive heart failure including PND, orthopnea, or lower extremity edema. PAST CARDIAC HISTORY: history of CAD s/p CABG (2001), s/p PCI to LMT-ostial Lcx and SVG-RCA (2016), s/p PCI LCx 2017, stroke, carotid stenosis, HTN, HLD and COVID May/Jun 2020 PAST MEDICAL HISTORY Diagnosis Date Aortic aneurysm (HCC) Carotid artery stenosis Coronary artery disease Depression Diabetes (HCC) A1C >8.0 06/2021 Diarrhea Dyslipidemia long standing history Fibromyalgia Heart disease High cholesterol Hypertension Longstanding history Infrarenal abdominal aortic aneurysm, without rupture (HCC) Obesity, Class I, BMI 30-34.9 04/12/2018 Paroxysmal atrial fibrillation (HCC) 10/06/2016 Stroke ([facility]) Suspected obstructive sleep apnea syndrome 02/26/2017 PAST SURGICAL HISTORY Procedure Laterality Date ANES OPEN/SURG ARTHROSCOPIC PROC KNEE JOINT NOS Right ANKLE ARTHROSCOPY/SURGERY Left APPENDECTOMY COLONOSCOPY FLX DX W/COLLJ SPEC WHEN PFRMD 05/30/2013 Colonoscopy HEART SURGERY HX Triple bypas L'SCOPE CHOLECYSTECTOMY 10/30/2021 TONSILLECTOMY HX SOCIAL HISTORY Social History Tobacco Use Smoking status: Never Smokeless tobacco: Never Substance Use Topics Alcohol use: Yes Comment: seldomly, 1 beer per month Drug use: No FAMILY HISTORY Problem Relation Age of Onset other (lung cancer) Father Diabetes Mother other (pancreatic cancer) Mother ALLERGIES: ALLERGIES Allergen Reactions Atorvastatin Other: See Comments Other reaction(s): Muscle aches Nabumetone GI Upset Aripiprazole Other: See Comments MEDICATIONS: benzonatate (TESSALON PERLES) 100 mg capsule Take 1 capsule by mouth three times a day as needed for cough. aspirin, enteric coated (ASPIRIN, ENTERIC COATED) 81 mg EC tablet Take 81 mg by mouth once daily. JARDIANCE 10 mg tablet metFORMIN ER (GLUCOPHAGE XR) 500 mg 24 hr tablet ondansetron orally disintegrating (ZOFRAN ODT) 4 mg disintegrating tablet Take by mouth. rosuvastatin (CRESTOR) 40 mg tablet Take 1 tablet by mouth once daily. clopidogrel (PLAVIX) 75 mg tablet Take 1 tablet by mouth once daily. gabapentin (NEURONTIN) 600 mg tablet Take 600 mg by mouth once daily as needed (in the morning). insulin glargine (LANTUS SOLOSTAR U-100 INSULIN) 100 unit/mL (3 mL) Inject 50 Units subcutaneously twice daily. (Patient taking differently: Inject 30 Units subcutaneously two times a day.) carvedilol (COREG) 6.25 mg tablet Take 6.25 mg by mouth twice daily with meals. plecanatide (TRULANCE) 3 mg tablet Take 3 mg by mouth as needed. pantoprazole DR (PROTONIX) 40 mg tablet TAKE 1 TABLET BY MOUTH ONCE DAILY IN THE MORNING BEFORE A MEAL fexofenadine (JESSICA) 180 mg tablet Take 180 mg by mouth once daily as needed. nitroglycerin sublingual (NITROQUICK) 0.4 mg SL tablet Dissolve 1 tablet under the tongue as needed for Chest Pain. insulin aspart (NOVOLOG FLEXPEN) 100 unit/mL inpn Inject 20 Units subcutaneously three times daily with meals. gabapentin (NEURONTIN) 300 mg capsule Take 300 mg by mouth three times a day. (Patient not taking: Reported on 08/31/2023) lisinopril (ZESTRIL) 5 mg tablet DAILY (Patient not taking: Reported on 08/03/2023) metoprolol tartrate, short acting, (LOPRESSOR) 25 mg tablet Take by mouth. (Patient not taking: Reported on 06/07/2023) aspirin 325 mg tablet Take 325 mg by mouth once daily. (Patient not taking: Reported on 06/07/2023) REVIEW OF SYSTEMS: Review of Systems Constitutional: Positive for malaise/fatigue. Negative for chills, fever and weight loss. HENT: Negative for hearing loss and sore throat. Eyes: Negative for blurred vision and double vision. Respiratory: Positive for shortness of breath. Cardiovascular: Negative. Gastrointestinal: Negative. Genitourinary: Negative for dysuria, frequency, hematuria and urgency. Musculoskeletal: Negative. Skin: Negative. Neurological: Negative for dizziness, seizures, loss of consciousness, weakness and headaches. Endo/Heme/Allergies: Negative for environmental allergies. Does not bruise/bleed easily. Psychiatric/Behavioral: Negative for depression. PHYSICAL EXAMINATION: BP 131/70 Pulse 74 Ht 6' 3 (1.91m) Wt 243 lb (110.2kg) SpO2 99% BMI 30.37 kg/(m^2). General: Pleasant gentleman sitting appears comfortable no apparent distress he is alert and oriented x3 HEENT: Carotid upstrokes are brisk on the right. Right carotid bruit noted. No JVD. Pulmonary: Lungs are clear no rales, wheezes, rhonchi Cardiovascular: Normal S1, S2 with regular rate and rhythm. No murmurs, rubs, or gallops Extremities: Warm, well-perfused, no lower extremity edema. 2+ distal pulses CARDIOVASCULAR MEDICINE TESTING: ECG in the office February 23, 2023: Sinus rhythm with first-degree AV block. Left axis deviation with right bundle branch block pattern. No significant ST or T wave changes Cardiac catheterization/PCI [facility] 01/26/2022: Left Main: Previously placed stent is patent with mild luminal irregularities LAD: Occluded at the ostium mid to distal LAD is small in caliber going from the CHILDERS graft with no angiographically significant disease distal to the graft is insertion LCx: Previously placed stent in the proximal circumflex has an in-stent 85% restenosis the mid circumflex has mild luminal irregularities and diffuse eccentric 25% stenosis. The distal circumflex has mild luminal irregularities and diffuse eccentric disease. OM1 is a small caliber vessel. Proximal vessel fills from the radial artery graft with diffuse 50-70% disease distal to the graft insertion RCA: Occluded proximally Grafts CHILDERS-mid LAD: Patent RA-OM1: Patent SVG-RPDA: Patent with patent stent. PCI: Proximal circumflex ISR treated with balloon angioplasty, Cutting Balloon angioplasty and placement of a 3.5 x 18 mm Orsiro stent. The mid left circumflex was treated with a 2.25 x 22 mm Orsiro stent Cardiac Catheterization/PCI [facility] 02/01/2021: Coronary Findings Diagnostic Dominance: Right Left Main: The vessel is moderate in size. The vessel exhibits minimal luminal irregularities. There is 20% stenosis in the proximal LM. Mid LM lesion is 15% stenosed. The lesion was previously treated using a stent of unknown type. Left Anterior Descending: Ost LAD lesion is 100% stenosed. Left Circumflex: The vessel is large. There is mild diffuse disease throughout the vessel. Prox Cx lesion is 70% stenosed. The lesion was previously treated using a stent of unknown type. Mid Cx-1 lesion is 20% stenosed. Mid Cx-2 lesion is 30% stenosed. Dist Cx lesion is 50% stenosed. First Obtuse Marginal Branch: 1st Mrg lesion is 100% stenosed. Proximal, supply distally by graft. Second Obtuse Marginal Branch: There is mild diffuse disease throughout the vessel. Small to medium in size. 2nd Mrg lesion is 80% stenosed. Proximal. Free Arterial Graft To 1st Mrg: The graft was visualized by angiography. The graft exhibits minimal luminal irregularities. [place] target vessel has diffuse, mild/moderate disease, in addition, there is an 80% stenosis in the mid to distal branch that is smaller in caliber. Prox Graft lesion is 40% stenosed. CHILDERS Graft To Mid LAD: The graft was visualized by angiography. The graft exhibits minimal luminal irregularities. [place] target vessel has diffuse, mild/moderate disease that is smaller in caliber. Saphenous Graft To RPDA: The graft was visualized by angiography. The graft exhibits minimal luminal irregularities. [place] target vessel has diffuse, mild/moderate disease; there are right to left collaterals. Prox Graft lesion is 15% stenosed. Mid Graft lesion is 20% stenosed. The lesion was previously treated using a stent of unknown type. Dist Graft lesion is 20% stenosed. Intervention Prox Cx lesion: PCI: Lesion length: 10 mm. The pre-interventional distal flow is normal (DIMITRI 3). - A CATHETER GUIDING 6FR EBU3.75 CURVE 100CM [email or web address] NX BALANCED interventional guide catheter was used to successfully engage the vessel. - A GUIDEWIRE COUGAR XT .014IN 190CM STRAIGHT VASCULAR was used to cross the lesion Angioplasty - BALLOON DILATATION NC EMERGE MONORAIL 3.5MM 15MM 143CM 2. Multiple inflations were performed. Maximum pressure: 19 clem. Inflation time: 10 sec. - BALLOON DILATATION NC EMERGE MONORAIL 4MM 15MM 143CM 2 LUMEN. Maximum pressure: 18 clem. Inflation time: 30 sec. - The post-interventional distal flow is normal (DIMITRI 3). - The intervention was successful. There is a 25% residual stenosis post intervention. Cardiac Catheterization/PCI 2018 LMT: - The LMT has mild diffuse disease. - The ostial LMT is narrowed 20 % - focal disease. LAD: - The LAD has moderate diffuse disease. - The proximal LAD is narrowed 100 % - focal disease. Additional Comment: 100% proximal occlusion. Patent CHILDERS fills large vessel that wraps around the apex and has moderate-severe diffuse disease. LCX: - The Circumflex has moderate diffuse disease. - The proximal circumflex is narrowed 90 % - ISR. Additional Comment: Moderately diseased vessel with 90% in-stent restenosis of proximal LCx. Patent graft to OM. RAMUS: - The Ramus is Absent. RCA: - The mid RCA is narrowed 100 % - focal disease. Additional Comment: RCA is completely occluded in mid segment. Patent SVG to distal RCA with mild ISR of previous intervention 02/28/17. GRAFTS: - Left Internal Mammary Artery Graft Side to Side to the Proximal LAD. - Radial Graft Side to Side to the OM-1 First Obtuse Marginal Branch. - Saphenous Vein Graft Side to Side to the Distal RCA - mild diffuse disease. Procedures Performed: - Successful PCI of the LMT into proximal LCX severe ISR lesion with a 4.0 x 22mm [place] [facility] Echocardiogram 01/04/2022 - Technically difficult exam due to body habitus. - Exam indication: CAD - The left ventricle is normal in size. Left ventricular systolic function is normal. EF = 54 5% (2D 4-ch.) 3D volumes/LV strain not obtained due to suboptimal image quality and poor tracking. - The right ventricle is normal in size. Right ventricular systolic function is normal. - The visualized aorta is dilated with a maximal dimension of 4.3 cm. - Trivial MR and TR. - Aortic leaflet sclerosis with no stenosis. There is no AI. Tricuspid aortic valve. - Contrast unavailable - Exam was compared with the prior CC echocardiographic exam performed on 11/12/2020. No significant change. Carotid ultrasound 04/17/2023: IMPRESSION: The right internal carotid artery stent was visualized and appears patent. The peak systolic velocities, end diastolic velocities, and ICA/CCA ratio are consistent with 1-29% stenosis in the right internal carotid artery by NASCET criteria. Color Doppler, power Doppler, and spectral Doppler evaluation again demonstrate no flow in the left internal carotid artery consistent with the patient's known occlusion. The spectral Doppler waveforms in the left common carotid artery are low velocity and high resistive in nature which is consistent with a distal occlusion. There are elevated velocities in the right common carotid artery origin consistent with 50-99% stenosis. With the exception of the high resistant spectral Doppler waveforms, the left common carotid artery is unremarkable. The right external carotid artery is within normal limits. There are markedly elevated velocities in the left external carotid artery consistent with 50-99% stenosis. The vertebral arteries are patent and demonstrate antegrade flow bilaterally. The right subclavian artery is unremarkable. The velocities in the left subclavian artery are elevated consistent with 50-99% stenosis. The posterior circulation is further discussed in the transcranial Doppler posterior circulation report. When compared to the previous carotid ultrasound dated 04/06/2021 there has been an increase in the peak systolic velocities of the right common carotid artery origin which are consistent with stenosis. The remainder of the examination is essentially unchanged. The velocities throughout the right internal carotid artery stent are as follows in centimeters per second: Proximal to stent 111, proximal stent 67, mid stent 107, distal stent 70, distal to stent 75. CTA neck 12/13/2021: IMPRESSION: Status post intraluminal stent placement of the origin of each cervical vertebral artery. Patent cervical right ICA following stent placement without significant change since 01/31/2021. Occlusion of the left ICA at the origin. Prior intraluminal stent placement in the petrous right ICA. Severe right carotid siphon stenosis. Collateral filling of the left ICA terminus through a small left PCOM. Distal left vertebral and proximal basilar artery stenoses. IMPRESSION: Mr. Jose is a 68 year old gentleman with a history of coronary artery disease remote coronary bypass grafting and subsequent percutaneous coronary intervention most recently in January 2022 at which time he underwent repeat stenting of the left main into the circumflex to preserve flow to a very small distal left circumflex obtuse marginal branch. The CHILDERS graft to the LAD is widely patent. SVG-RCA patent as well as a patent radial artery graft to the first obtuse marginal branch. I reviewed his catheterization films with him during the office visit. He is also treated for peripheral arterial disease with an occluded left carotid artery and a prior stent to the right internal carotid artery at the time of TIA or CVA. He has a history of hypertension with severe orthostatic hypotension and dyslipidemia. Presents the office for routine follow-up PLAN AND RECOMMENDATIONS: 1. 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 Continue current medical therapy and risk factor modification - NITROGLYCERIN 0.4 MG SUBLINGUAL TABLET - CARVEDILOL 3.125 MG TABLET - COMP METABOLIC PANEL 2. Peripheral arterial disease (HCC) - ICD9: 443.9, ICD10: I73.9 3. Aneurysm of ascending aorta without rupture (HCC) - ICD9: 441.2, ICD10: I71.21 4. Infrarenal abdominal aortic aneurysm (AAA) without rupture (HCC) - ICD9: 441.4, ICD10: I71.43 5. Bilateral carotid artery stenosis - ICD9: 433.10, 433.30, ICD10: I65.23 Follows with vascular surgery 6. Left carotid artery occlusion - ICD9: 433.10, ICD10: I65.22 7. Essential hypertension - ICD9: 401.9, ICD10: I10 Adequately controlled given his history of orthostatic hypotension. I did reduce his carvedilol to 3.125 mg twice daily in hopes of minimizing some of his symptoms. Will need to except higher resting or seated blood pressures in order to avoid episodes of syncope or near syncope - CARVEDILOL 3.125 MG TABLET 8. Orthostatic hypotension - ICD9: 458.0, ICD10: I95.1 9. Mixed hyperlipidemia - ICD9: 272.2, ICD10: E78.2 Maintained on Crestor 40 mg daily. Repeat fasting blood work before next office visit - LIPID PANEL BASIC - COMP METABOLIC PANEL Juan Diego Bang MD documented in this encounter [facility] 08-09-2023 Note HNO ID: [id number] Author: JOSÉ MIGUEL TAYLOR RT(Abdirashid) Service: Radiology Author Type: Technologist Type: Progress Notes Filed: 08/09/2023 08:23 Note Text: Radiology Service Progress Note PATIENT NAME: Tommy Jose DATE OF SERVICE: August 09, 2023 TIME: 8:13 AM PATIENT IDENTITY VERIFICATION COMPLETED USING TWO (2) IDENTIFIERS: Name and Date of confirmed by patient verbally. FALL SCREENING: Has the patient had 2 falls in the last year or 1 fall with injury or currently using an Ambulatory Assistive Device (Walker, Cane, Wheelchair, Crutches, etc.)? No PATIENT GENDER DATA: Male PATIENT RELEVANT IMPLANT DATA REVIEWED: Not Applicable PATIENT PRESENTS WITH AN IMPLANTABLE OR ATTACHED BLOWER MECHANIC: No RADIOLOGY DEPARTMENT: General X-ray: Exam(s) Completed: Chest X-Ray PERIPHERAL IV DATA: Not applicable SIGNED BY: RT Joy(Abdirashid) August 09, 2023 8:13 AM [facility] 08-09-2023 Note HNO ID: [id number] Author: KANDIS SMALLS APRN.BROADCAST MAINTENANCE ENGINEER Service: ? Author Type: Nurse Practitioner Type: Progress Notes Filed: 08/09/2023 08:34 Note Text: Subjective HPI Nontoxic-appearing male presents urgent care chief complaint cough chest congestion sinus pressure headache. States this has been present for about a month. States sinus pressure has worsened. History of sinus infections this feels similar. Was seen by his PCP earlier in this illness. Diagnosed with viral sinusitis. Presents today due to worsening sinus pressure. States feels like cough is improving. Has been using OTC medications that have not helped. Denies any fever body aches chills productive cough chest pain shortness of breath pleuritic pain hemoptysis nausea vomiting abdominal pain change in bowel or bladder habits. Past medical history prescription medication use and allergies reviewed. .Patient presents with: Sinus Problem: Congestion, cough, sore throat, PLAZA x 1 month PAST MEDICAL HISTORY Diagnosis Date Aortic aneurysm (HCC) Carotid artery stenosis Coronary artery disease Depression Diabetes (HCC) A1C >8.0 06/2021 Diarrhea Dyslipidemia long standing history Fibromyalgia Heart disease High cholesterol Hypertension Longstanding history Obesity, Class I, BMI 30-34.9 04/12/2018 Paroxysmal atrial fibrillation (HCC) 10/06/2016 Stroke (HCC) Suspected obstructive sleep apnea syndrome 02/26/2017 PAST SURGICAL HISTORY Procedure Laterality Date ANES OPEN/SURG ARTHROSCOPIC PROC KNEE JOINT NOS Right ANKLE ARTHROSCOPY/SURGERY Left APPENDECTOMY COLONOSCOPY FLX DX W/COLLJ SPEC WHEN PFRMD 05/30/2013 Colonoscopy HEART SURGERY HX Triple bypas L'SCOPE CHOLECYSTECTOMY 10/30/2021 TONSILLECTOMY HX ALLERGIES Atorvastatin, Nabumetone, and Aripiprazole MEDICATIONS gabapentin (NEURONTIN) 300 mg capsule Take 300 mg by mouth three times a day. aspirin, enteric coated (ASPIRIN, ENTERIC COATED) 81 mg EC tablet Take 81 mg by mouth once daily. JARDIANCE 10 mg tablet metFORMIN ER (GLUCOPHAGE XR) 500 mg 24 hr tablet ondansetron orally disintegrating (ZOFRAN ODT) 4 mg disintegrating tablet Take by mouth. rosuvastatin (CRESTOR) 40 mg tablet Take 1 tablet by mouth once daily. clopidogrel (PLAVIX) 75 mg tablet Take 1 tablet by mouth once daily. gabapentin (NEURONTIN) 600 mg tablet Take 600 mg by mouth once daily as needed (in the morning). insulin glargine (LANTUS SOLOSTAR U-100 INSULIN) 100 unit/mL (3 mL) Inject 50 Units subcutaneously twice daily. (Patient taking differently: Inject 30 Units subcutaneously two times a day.) carvedilol (COREG) 6.25 mg tablet Take 6.25 mg by mouth twice daily with meals. plecanatide (TRULANCE) 3 mg tablet Take 3 mg by mouth as needed. pantoprazole DR (PROTONIX) 40 mg tablet TAKE 1 TABLET BY MOUTH ONCE DAILY IN THE MORNING BEFORE A MEAL fexofenadine (JESSICA) 180 mg tablet Take 180 mg by mouth once daily as needed. nitroglycerin sublingual (NITROQUICK) 0.4 mg SL tablet Dissolve 1 tablet under the tongue as needed for Chest Pain. insulin aspart (NOVOLOG FLEXPEN) 100 unit/mL inpn Inject 20 Units subcutaneously three times daily with meals. lisinopril (ZESTRIL) 5 mg tablet DAILY (Patient not taking: Reported on 08/03/2023) metoprolol tartrate, short acting, (LOPRESSOR) 25 mg tablet Take by mouth. (Patient not taking: Reported on 06/07/2023) aspirin 325 mg tablet Take 325 mg by mouth once daily. (Patient not taking: Reported on 06/07/2023) FAMILY HISTORY Problem Relation Age of Onset other (lung cancer) Father Diabetes Mother other (pancreatic cancer) Mother Social History Tobacco Use Smoking status: Never Smokeless tobacco: Never Substance Use Topics Alcohol use: Yes Comment: seldomly, 1 beer per month Drug use: No BP 160/74 Pulse 97 Temp (!) 35.7 ?C (96.2 ?F) Resp 21 Wt 110 kg (242 lb 9.6 oz) SpO2 98% BMI 30.32 kg/m? Review of Systems Constitutional: Negative for chills, fever and malaise/fatigue. HENT: Positive for congestion and sinus pain. Negative for ear discharge, ear pain and sore throat. Eyes: Negative for blurred vision, pain, discharge and redness. Respiratory: Positive for cough. Negative for hemoptysis, sputum production, shortness of breath, wheezing and stridor. Cardiovascular: Negative for chest pain. Gastrointestinal: Negative for abdominal pain, diarrhea, nausea and vomiting. Musculoskeletal: Negative for myalgias. Skin: Negative for itching and rash. Neurological: Positive for headaches. Negative for dizziness. Objective Physical Exam Constitutional: General: He is not in acute distress. Appearance: He is not diaphoretic. HENT: Head: Normocephalic. Jaw: No trismus, tenderness, swelling or pain on movement. Nose: Congestion present. Right Sinus: Maxillary sinus tenderness present. Left Sinus: Maxillary sinus tenderness and frontal sinus tenderness present. Mouth/Throat: (more content not included)... [facility] 06-07-2023 Note HNO ID: [id number] Author: Juan Diego Denise PA-C Service: ? Author Type: Physician Floor Layer Helper Type: Progress Notes Filed: 06/07/2023 9:40 AM Note Text: Juan Diego Denise PA-C [facility] [address] [address] 06/07/2023 ASSESSMENT AND PLAN: Assessment : Encounter Diagnosis ICD-10-CM 1. Lumbar radiculopathy M54.16 SPINE INTERVENTION PROCEDURE 2. Spinal stenosis of lumbar region with neurogenic claudication M48.062 SPINE INTERVENTION PROCEDURE Discussion: Mr. Jose is a very pleasant 68-year-old former [employer] that is here for evaluation of low back and right leg pain. He was sent by neurology with a current MRI scan of the lumbar region that shows foraminal stenosis at L4-5 and L5-S1. Patient describes symptoms most consistent with right S1 nerve root in the buttock, posterior thigh, posterior lower leg but stops before the ankle area. The buttock and the thigh are the most painful He also reports having had 3 or 4 surgeries on his right knee and is unable to fully straighten it. EXAM Highlights: He mobilizes slowly from sitting to standing posture and his gait does appear to favor the right leg, possibly due to leg length discrepancy or pain contribution He has diminished lumbar motion in all directions and it reproduces right-sided lateral muscular pain above the lateral iliac crest and at the lowest ribs but certainly lateral to the lumbar paraspinals. He is nontender over PSIS and midline bony prominences and SI joints and greater trochanters He has normal motor function at 5/5 throughout bilateral lower extremities Voluntary sitting SLR is negative bilaterally. He is unable to fully extend his right knee lacking about 5 degrees of extension IMAGING: Reviewed his MRI together in detail during today's visit. 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 At L4-5 and at L5-S1, there is some foraminal narrowing but it does not appear to be severe. SUMMARY/PLAN: He appears to have primarily symptoms of nerve irritation on the right side. He is already taking 600 mg doses of gabapentin for his LE neuropathy We discussed the consideration of lumbar epidural steroid injection as it may have a diagnostic as well as treatment benefit for him. It does not appear that he has a surgical lesion to be concerned about on this scan He will decide on whether or not he wants to go forward with the injection after he discusses this further with his . Provided him with information regarding [facility] clinicians who performed this procedure and he will self-schedule if he desires to go forward with that. Plan : REFERAL FOR SERVICES: -Consult to Pain Anesthesia: The purpose will be for both diagnostic and therapeutic purposes. The patient is instructed to pay attention to the amount of pain during the anesthetic phase, and during that time to perform the activities that typically exacerbate the pain to determine what percentage of relief is gained. The patient is instructed that the steroid phase of the injection may take up to a week or more to provide relief, and to pay attention to the percentage of relief obtained during the steroid phase. If the steroid phase gives significant pain relief, the procedure can be repeated. ACTIVITY RECOMMENDATIONS: -The patient is encouraged to avoid bed rest and maintain normal activity. FOLLOW-UP: -The patient is instructed to return as needed. This document has been created with the use of voice recognition technology. It may contain inaccuracies: (e.g. misspellings, inaccurate syntax or word sense) that have escaped review. Time spent: 40 minutes today with this patient visit. This includes [id number] time, review of chart records regarding conservative care history, spine-pertinent imaging, and communication/care coordination with referring provider, problem-specific history-taking and counseling/education regarding treatment options. cc: Garrick Arredondo [address] [facility] [address] Results of consultation to be transmitted via electronic medical record for those providers who practice within [facility] or with access to [employer] via MD Connect, or via letter. ################################# ################################# ###### CHIEF COMPLAINT: Patient is here for the lower back pain, hips, left buttocks area, right leg- pain goes down and stops above the ankle. Has this pain for years and the pain is getting worse, level of the pain is at 8/10. Walking will be more painful. Sleep is bad, pain wakes him up, sciatica pain was shooting down his right leg. Sometimes has numbness. Had 5 strokes HPI: see Discussion above (more content not included)... [facility] 06-07-2023 Instructions Juan Diego Denise PA-C - 06/07/2023 9:24 AM EST For spinal injection--if you decide to go forward--call the following: Contact - [place] - Dr. Simon Moctezuma: Have patient call [phone] to schedule - [place] - Drs. Tommy Kohler, Hiral Sánchez, Lv Amaro: have patient call Ext. [phone] - [facility] - Dr. Edouard Crawley: have patient call - [facility] [place] - first available : have patient call [phone] Injection Type - Transforaminal Lumbar epidural steroid injection: Right; Level: L5-S1 CPT 98572 In order to learn more about each possible clinician who does these injections: How to review your options for a [facility] physician referral: Go to [email or web address] and look for the Find a Doctor tab right underneath the [facility] logo in the top left corner of the page. Click on that and then enter lumbar epidural injection in the search field. There should be quite a few different physicians in the [facility] area for you to review their credentials, locations of practice, educational background, and specialties. documented in this encounter [facility] 06-07-2023 History of Present illness Narrative Images from the original note were not included. Juan Diego Denise PA-C [facility] [address] [place] [address] [place] [address] 06/07/2023 ASSESSMENT AND PLAN: Assessment : Encounter Diagnosis ICD-10-CM 1. Lumbar radiculopathy M54.16 SPINE INTERVENTION PROCEDURE 2. Spinal stenosis of lumbar region with neurogenic claudication M48.062 SPINE INTERVENTION PROCEDURE Discussion: Mr. Jose is a very pleasant 68-year-old former [employer] that is here for evaluation of low back and right leg pain. He was sent by neurology with a current MRI scan of the lumbar region that shows foraminal stenosis at L4-5 and L5-S1. Patient describes symptoms most consistent with right S1 nerve root in the buttock, posterior thigh, posterior lower leg but stops before the ankle area. The buttock and the thigh are the most painful He also reports having had 3 or 4 surgeries on his right knee and is unable to fully straighten it. EXAM Highlights: He mobilizes slowly from sitting to standing posture and his gait does appear to favor the right leg, possibly due to leg length discrepancy or pain contribution He has diminished lumbar motion in all directions and it reproduces right-sided lateral muscular pain above the lateral iliac crest and at the lowest ribs but certainly lateral to the lumbar paraspinals. He is nontender over PSIS and midline bony prominences and SI joints and greater trochanters He has normal motor function at 5/5 throughout bilateral lower extremities Voluntary sitting SLR is negative bilaterally. He is unable to fully extend his right knee lacking about 5 degrees of extension IMAGING: Reviewed his MRI together in detail during today's visit. 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 At L4-5 and at L5-S1, there is some foraminal narrowing but it does not appear to be severe. SUMMARY/PLAN: He appears to have primarily symptoms of nerve irritation on the right side. He is already taking 600 mg doses of gabapentin for his LE neuropathy We discussed the consideration of lumbar epidural steroid injection as it may have a diagnostic as well as treatment benefit for him. It does not appear that he has a surgical lesion to be concerned about on this scan He will decide on whether or not he wants to go forward with the injection after he discusses this further with his . Provided him with information regarding [facility] clinicians who performed this procedure and he will self-schedule if he desires to go forward with that. Plan : REFERAL FOR SERVICES: -Consult to Pain Anesthesia: The purpose will be for both diagnostic and therapeutic purposes. The patient is instructed to pay attention to the amount of pain during the anesthetic phase, and during that time to perform the activities that typically exacerbate the pain to determine what percentage of relief is gained. The patient is instructed that the steroid phase of the injection may take up to a week or more to provide relief, and to pay attention to the percentage of relief obtained during the steroid phase. If the steroid phase gives significant pain relief, the procedure can be repeated. ACTIVITY RECOMMENDATIONS: -The patient is encouraged to avoid bed rest and maintain normal activity. FOLLOW-UP: -The patient is instructed to return as needed. This document has been created with the use of voice recognition technology. It may contain inaccuracies: (e.g. misspellings, inaccurate syntax or word sense) that have escaped review. Time spent: 40 minutes today with this patient visit. This includes [id number] time, review of chart records regarding conservative care history, spine-pertinent imaging, and communication/care coordination with referring provider, problem-specific history-taking and counseling/education regarding treatment options. cc: Garrick Arredondo [address] [facility] [address] Results of consultation to be transmitted via electronic medical record for those providers who practice within [facility] or with access to [employer] via [facility] Connect, or via letter. ################################# ################################# ###### CHIEF COMPLAINT: Patient is here for the lower back pain, hips, left buttocks area, right leg- pain goes down and stops above the ankle. Has this pain for years and the pain is getting worse, level of the pain is at 8/10. Walking will be more painful. Sleep is bad, pain wakes him up, sciatica pain was shooting down his right leg. Sometimes has numbness. Had 5 strokes HPI: see Discussion above History of bowel or bladder dysfunction (not IBS or constipation): No History of previous spinal surgery: No History of spinal fracture: No Work Status: retired NON-OPERATIVE CARE: Medication(s): He has tried the following for relief of his symptoms: Muscle relaxant: Flexeril Neurontin/gabapentin Physical Therapy: He has had physical therapy for his current symptoms. This was completed 5 years ago. The therapy did not provide any significant relief. Spinal Injections: He has not gotten prior spinal injections. Other: Chiropractice care: Massage therapy TENS unit Current Outpatient Medications Medication Sig Dispense Refill gabapentin (NEURONTIN) 300 mg capsule Take 300 mg by mouth three times a day. aspirin, enteric coated (ASPIRIN, ENTERIC COATED) 81 mg EC tablet Take 81 mg by mouth once daily. JARDIANCE 10 mg tablet lisinopril (ZESTRIL) 5 mg tablet DAILY metFORMIN ER (GLUCOPHAGE XR) 500 mg 24 hr tablet ondansetron orally disintegrating (ZOFRAN ODT) 4 mg disintegrating tablet Take by mouth. rosuvastatin (CRESTOR) 40 mg tablet Take 1 tablet by mouth once daily. 90 tablet 3 clopidogrel (PLAVIX) 75 mg tablet Take 1 tablet by mouth once daily. 90 tablet 3 gabapentin (NEURONTIN) 600 mg tablet Take 600 mg by mouth once daily as needed (in the morning). insulin glargine (LANTUS SOLOSTAR U-100 INSULIN) 100 unit/mL (3 mL) Inject 50 Units subcutaneously twice daily. (Patient taking differently: Inject 30 Units subcutaneously two times a day.) carvedilol (COREG) 6.25 mg tablet Take 6.25 mg by mouth twice daily with meals. plecanatide (TRULANCE) 3 mg tablet Take 3 mg by mouth as needed. pantoprazole DR (PROTONIX) 40 mg tablet TAKE 1 TABLET BY MOUTH ONCE DAILY IN THE MORNING BEFORE A MEAL fexofenadine (JESSICA) 180 mg tablet Take 180 mg by mouth once daily as needed. nitroglycerin sublingual (NITROQUICK) 0.4 mg SL tablet Dissolve 1 tablet under the tongue as needed for Chest Pain. 90 tablet 3 insulin aspart (NOVOLOG FLEXPEN) 100 unit/mL inpn Inject 20 Units subcutaneously three times daily with meals. 30 Pen 1 metoprolol tartrate, short acting, (LOPRESSOR) 25 mg tablet Take by mouth. (Patient not taking: Reported on 06/07/2023) aspirin 325 mg tablet Take 325 mg by mouth once daily. (Patient not taking: Reported on 06/07/2023) No current facility-administered medications for this visit. Allergies: Atorvastatin, Nabumetone, and Aripiprazole PAST MEDICAL HISTORY Diagnosis Date Aortic aneurysm (HCC) Carotid artery stenosis Coronary artery disease Depression Diabetes (HCC) A1C >8.0 06/2021 Diarrhea Dyslipidemia long standing history Fibromyalgia Heart disease High cholesterol Hypertension Longstanding history Obesity, Class I, BMI 30-34.9 04/12/2018 Paroxysmal atrial fibrillation (HCC) 10/06/2016 Stroke (HCC) Suspected obstructive sleep apnea syndrome 02/26/2017 PAST SURGICAL HISTORY Procedure Laterality Date ANES OPEN/SURG ARTHROSCOPIC PROC KNEE JOINT NOS Right ANKLE ARTHROSCOPY/SURGERY Left APPENDECTOMY COLONOSCOPY FLX DX W/COLLJ SPEC WHEN PFRMD 05/30/2013 Colonoscopy HEART SURGERY HX Triple bypas L'SCOPE CHOLECYSTECTOMY 10/30/2021 TONSILLECTOMY HX Social History Tobacco Use Smoking status: Never Smokeless tobacco: Never Substance Use Topics Alcohol use: Yes Comment: seldomly, 1 beer per month Drug use: No FAMILY HISTORY Problem Relation Age of Onset other (lung cancer) Father Diabetes Mother other (pancreatic cancer) Mother REVIEW OF SYSTEMS: Constitutional: (-) Fever/Chills (-) Night Sweats (-) Weight Gain (-) Weight Loss (+) Fatigue Gastrointestinal: (-) Abdominal Pain (+) Diarrhea (+) Constipation (+) Nausea/Vomiting (+) Heart Burn Cardiovascular: (-) Chest Pain (-) Palpitations (+) Lightheadedness (+) Swelling of Ankles (+) Hx Heart Surgery/ 2 Stent Respiratory: (+) Short of Breath (-) Cough (+) Snoring Neurologic: (-) Headache (-) Blurry Vision (-) Fainting Skin: (-) Rashes (-) Itching (-) Other Lesions Psychiatric: (+) Depression (+) Anxiety (-) Suicidal Thoughts Genitourinary: (-) Frequency (-) Urgency Endocrine: (-) Thyroid Disorder (+) Diabetes Hematologic: (-) Prolonged Bleeding (-) Easy Bruising ################################# ################################# ################################# ############################## PHYSICAL EXAM: Blood pressure 144/62, pulse 70, height 190.5 cm (6' 3 ), weight 111.6 kg (246 lb), SpO2 98 %. Body mass index is 30.75 kg/m . General: Patient is a(n) average historian. The patient appears approximately the recorded age and is sitting comfortably in the examining room. The patient is tall in stature and is overweight in appearance. This individual has difficulty arising from a sitting position and does have difficulty acquiring a full, upright position when standing. Station and Gait: flexed posture and antalgic gait leaning forward and favoring the right lower extremity The patient is able to but has difficulty in attempting to walk in a tandem gait. MENTAL STATUS EXAMINATION: The patient was well groomed and casually attired. The patient had good eye contact and rapport was easy to establish. The patient appeared to be alert and oriented in all spheres. The patient's overall medical judgment appeared to be good.The patient's motivation for treatment was judged based on today's encounter to be good. SPINE: Lumbar Lordosis: Decreased/flattened Thoracic Kyphosis: Increased RANGE OF MOTION: Flexion: abnormal, decreased motion below expected for age and weight Pain: No Extension: abnormal, decreased motion below expected for age and weight Pain: No Lateral Bending: Right abnormal, decreased motion below expected for age and weight Pain: Yes, muscular stretch pain on the ipsilateral side Left abnormal, decreased motion below expected for age and weight Pain: Yes, muscular stretch pain on the contralateral side PALPATION TENDERNESS: Mild tenderness at: lumbar region Hyperesthesia present: No Regional symptoms present: No Increased pain with axial loading: No Distraction: Normal Pain responses: appropriate NEUROLOGIC EXAM: MOTOR: Walk on Toes: Right: Yes Left: Yes Walk on Heels: Right: Yes, but poorly Left: Yes, but poorly Requires verbal cues to minimize cog-wheel or give-way resistance: No Hip Flexor R: 5/5 L: 5/5 Hip Abductor R: 5/5 L: 5/5 Hip Adductor R: 5/5 L: 5/5 Knee Extension R: 5/5 L: 5/5 Foot Dorsiflexion R: 5/5 L: 5/5 Foot Plantar Flexion R: 5/5 L: 5/5 Ext Hallicus Longus R: 5/5 L: 5/5 Toe Extensors R: 5/5 L: 5/5 SENSATION to Light Touch: Lumbar: S1: R: Abnormal: Noted findings are decreased sensation to light touch within this dermatome., L: Normal REFLEXES: Lower Extremity: Patella tendon: R: 0 L: 1+ Achilles tendon: R: 0 L: 0 Clonus: R: 0 beats/Normal L: 0 beats/Normal Babinski Sign: Negative bilaterally. VASCULAR: Skin appearance: Right: Warm/pink Left: Warm/pink Capillary refill: Right: brisk Left: brisk ADDITIONAL MUSCULOSKELETAL EXAM: HIP/PELVIS EXAM: Tenderness over the PSIS: Right: No Left: No Greater Trochanteric pain: Right: No Left: No SPECIAL TESTS: Straight Leg Raise: negative bilaterally Contralateral Straight Leg Raise: negative bilaterally IMAGING STUDIES: See discussion above documented in this encounter [facility] 05-29-2023 Note HNO ID: [id number] Author: Yanet Cruz RT(Abdirashid) Service: ? Author Type: Technologist Type: Progress Notes Filed: 05/29/2023 8:21 AM Note Text: Radiology Service Progress Note PATIENT NAME: Tommy Jose DATE OF SERVICE: May 29, 2023 TIME: 8:21 AM PATIENT IDENTITY VERIFICATION COMPLETED USING TWO (2) IDENTIFIERS: Name and Date of confirmed by patient verbally. FALL SCREENING: Has the patient had 2 falls in the last year or 1 fall with injury or currently using an Ambulatory Assistive Device (Walker, Cane, Wheelchair, Crutches, etc.)? No PATIENT GENDER DATA: Male PATIENT RELEVANT IMPLANT DATA REVIEWED: Yes RADIOLOGY DEPARTMENT: MR; Exam(s) Completed: Spine: Lumbar spine PERIPHERAL IV DATA: Not applicable SIGNED BY: ABDOUL Chavarira) May 29, 2023 8:21 AM [facility] 05-29-2023 History of Present illness Narrative Radiology Service Progress Note PATIENT NAME: Tommy Jose DATE OF SERVICE: May 29, 2023 TIME: 8:21 AM PATIENT IDENTITY VERIFICATION COMPLETED USING TWO (2) IDENTIFIERS: Name and Date of confirmed by patient verbally. FALL SCREENING: Has the patient had 2 falls in the last year or 1 fall with injury or currently using an Ambulatory Assistive Device (Walker, Cane, Wheelchair, Crutches, etc.)? No PATIENT GENDER DATA: Male PATIENT RELEVANT IMPLANT DATA REVIEWED: Yes RADIOLOGY DEPARTMENT: MR; Exam(s) Completed: Spine: Lumbar spine PERIPHERAL IV DATA: Not applicable SIGNED BY: RT Deon(R) May 29, 2023 8:21 AM documented in this encounter [facility] 05-01-2023 Note HNO ID: [id number] Author: Garrick Arredondo MD Service: ? Author Type: Physician Type: Progress Notes Filed: 05/01/2023 1:42 PM Note Text: [facility] New Patient Evaluation Consulting Provider: No referring provider defined for this encounter. Individuals who were included in, or assisted with the encounter were: Tommy Jose Garrick Arredondo MD Chief Complaint/Issues: Tommy Jose is a 68 year old right-handed male seen in the 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 Today he presents with difficulty in the right leg. He notes that he has previously been affected on the left leg secondary strokes. This initially resulted in him discussing with his cerebrovascular center provider who ordered ultrasounds of his arteries which were stable He also had a CT of the brain down recently at an outside emergency room which did not reveal any new issues, though the old stroke was there. He is maintained on aspirin and plavix These symptoms started about 2 weeks ago and he has felt generally less stable since then. He He notes that one night he had severe pain on the top of the right foot near the beginning of this. Then several days later he notes some more pain in the right lower back which has been present before, but this seems worse than usual. He notes a feeling of weakness in the right leg as well. He has has had no falls. He suffers from diabetic gastroparesis which is stable but he has no new problems with bladder contol General Examination: BP 131/74 Pulse 67 Wt 109.8 kg (242 lb) BMI 30.25 kg/m? He is alone. General: Awake, alert, interactive, no acute distress, good nutritional status, normal development, well-kept Neurological Exam Mental Status Alert, fully oriented, attentive, with normal cognition, memory, speech and affect. Cranial Nerves Visual wagner intact. Fundi with normal discs and vasculature. Pupils reactive. Extraocular movements conjugate and full. No ptosis. No nystagmus. Facial sensation intact. Face symmetric and strong. Palate and tongue normal. XI normal. Motor Examination and Coordination Neuromuscular Examination Axial Muscles Ptosis: R: none L: none Extremity Muscles Upper Extremity Right Left Shoulder abduction 5 5 Elbow flexion 5 5 Elbow extension 5 5 Wrist extension 5 5 Finger flexion/rounding and backing machine operator 5 5 Finger extension 5 5 First dorsal interosseous 4+ 4+ Abductor digiti minimi 5 5 Abductor pollicis brevis 5 5 Lower Extremity Right Left Hip flexion 5 5 Knee flexion 5 5 Knee extension 5 5 Ankle plantarflexion 5 5 Ankle dorsiflexion 5 5 Extensor hallucis longus 5- 5 Flexor digitorum longus 5 5 Tremor: None Coordination: Slowly performed finger nose finger and heel knee moctezuma Reflexes Deep tendon reflexes graded by MRC Deep Tendon Reflexes Right Left Biceps 0 0 Brachioradialis Tr Tr Patellar 0 0 Achilles 0 0 Plantar Mute Mute Sensation Pinprick: Pathcy loss in both legs, generalized distal graident Light touch: normal Temp: relatively presreved Proprioception: normal toes Gait Comes: independently ambulatory Arises: slowly without arm use Posture: flexed Gait initiation: normal Gait: cautious Assessment AND Plan 05/01/2023 - Neuromuscular, Garrick Arredondo MD ASSESSMENT 68-year-old man with complicated past medical history including multiple cerebrovascular events, intracranial stenosis status post multiple areas of stenting, diabetes who presents with 2 weeks of right lower extremity weakness and overall difficulty with balance. History is punctuated by significant neuropathic pain on the dorsum of the right foot at the initiation of symptoms as well as overall increase in radicular symptoms in the right lower back and down the right leg. Overall favor L5 radiculopathy, however, given complaint of weakness, clouding of exam due to his other neurological issues including likely underlying diabetic polyneuropathy, and significant impact is having on his daily function including walking would recommend MRI of the lumbar spine. He has already self increased his gabapentin temporarily to 300 in the morning and 600 at night. Could theoretically increase this further depending on his pain levels. Depending on results of above will consider referral to spine center. No diagnosis found. No follow-ups on file. Data Review Objective Current Outpatient Medications Me (more content not included)... [facility] 05-01-2023 History of Present illness Narrative Images from the original note were not included. [facility] New Patient Evaluation Consulting Provider: No referring provider defined for this encounter. Individuals who were included in, or assisted with the encounter were: Tommy Arredondo MD Chief Complaint/Issues: Tommy Jose is a 68 year old right-handed male seen in the 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 Today he presents with difficulty in the right leg. He notes that he has previously been affected on the left leg secondary strokes. This initially resulted in him discussing with his cerebrovascular center provider who ordered ultrasounds of his arteries which were stable He also had a CT of the brain down recently at an outside emergency room which did not reveal any new issues, though the old stroke was there. He is maintained on aspirin and plavix These symptoms started about 2 weeks ago and he has felt generally less stable since then. He He notes that one night he had severe pain on the top of the right foot near the beginning of this. Then several days later he notes some more pain in the right lower back which has been present before, but this seems worse than usual. He notes a feeling of weakness in the right leg as well. He has has had no falls. He suffers from diabetic gastroparesis which is stable but he has no new problems with bladder contol General Examination: BP 131/74 Pulse 67 Wt 109.8 kg (242 lb) BMI 30.25 kg/m He is alone. General: Awake, alert, interactive, no acute distress, good nutritional status, normal development, well-kept Neurological Exam Mental Status Alert, fully oriented, attentive, with normal cognition, memory, speech and affect. Cranial Nerves Visual wagner intact. Fundi with normal discs and vasculature. Pupils reactive. Extraocular movements conjugate and full. No ptosis. No nystagmus. Facial sensation intact. Face symmetric and strong. Palate and tongue normal. XI normal. Motor Examination and Coordination Neuromuscular Examination Axial Muscles Ptosis: R: none L: none Extremity Muscles Upper Extremity Right Left Shoulder abduction 5 5 Elbow flexion 5 5 Elbow extension 5 5 Wrist extension 5 5 Finger flexion/rounding and backing machine operator 5 5 Finger extension 5 5 First dorsal interosseous 4+ 4+ Abductor digiti minimi 5 5 Abductor pollicis brevis 5 5 Lower Extremity Right Left Hip flexion 5 5 Knee flexion 5 5 Knee extension 5 5 Ankle plantarflexion 5 5 Ankle dorsiflexion 5 5 Extensor hallucis longus 5- 5 Flexor digitorum longus 5 5 Tremor: None Coordination: Slowly performed finger nose finger and heel knee moctezuma Reflexes Deep tendon reflexes graded by MRC Deep Tendon Reflexes Right Left Biceps 0 0 Brachioradialis Tr Tr Patellar 0 0 Achilles 0 0 Plantar Mute Mute Sensation Pinprick: Pathcy loss in both legs, generalized distal graident Light touch: normal Temp: relatively presreved Proprioception: normal toes Gait Comes: independently ambulatory Arises: slowly without arm use Posture: flexed Gait initiation: normal Gait: cautious Assessment & Plan 05/01/2023 - Neuromuscular, Garrick Arredondo MD ASSESSMENT 68-year-old man with complicated past medical history including multiple cerebrovascular events, intracranial stenosis status post multiple areas of stenting, diabetes who presents with 2 weeks of right lower extremity weakness and overall difficulty with balance. History is punctuated by significant neuropathic pain on the dorsum of the right foot at the initiation of symptoms as well as overall increase in radicular symptoms in the right lower back and down the right leg. Overall favor L5 radiculopathy, however, given complaint of weakness, clouding of exam due to his other neurological issues including likely underlying diabetic polyneuropathy, and significant impact is having on his daily function including walking would recommend MRI of the lumbar spine. He has already self increased his gabapentin temporarily to 300 in the morning and 600 at night. Could theoretically increase this further depending on his pain levels. Depending on results of above will consider referral to spine center. No diagnosis found. No follow-ups on file. Data Review Objective Current Outpatient Medications Medication Sig JARDIANCE 10 mg tablet lisinopril (ZESTRIL) 5 mg tablet DAILY metFORMIN ER (GLUCOPHAGE XR) 500 mg 24 hr tablet metoprolol tartrate, short acting, (LOPRESSOR) 25 mg tablet Take by mouth. ondansetron orally disintegrating (ZOFRAN ODT) 4 mg disintegrating tablet Take by mouth. rosuvastatin (CRESTOR) 40 mg tablet Take 1 tablet by mouth once daily. clopidogrel (PLAVIX) 75 mg tablet Take 1 tablet by mouth once daily. gabapentin (NEURONTIN) 600 mg tablet Take 600 mg by mouth once daily as needed (in the morning). insulin glargine (LANTUS SOLOSTAR U-100 INSULIN) 100 unit/mL (3 mL) Inject 50 Units subcutaneously twice daily. (Patient taking differently: Inject 30 Units subcutaneously twice daily.) aspirin 325 mg tablet Take 325 mg by mouth once daily. carvedilol (COREG) 6.25 mg tablet Take 6.25 mg by mouth twice daily with meals. plecanatide (TRULANCE) 3 mg tablet Take 3 mg by mouth as needed. pantoprazole DR (PROTONIX) 40 mg tablet TAKE 1 TABLET BY MOUTH ONCE DAILY IN THE MORNING BEFORE A MEAL fexofenadine (JESSCIA) 180 mg tablet Take 180 mg by mouth once daily as needed. nitroglycerin sublingual (NITROQUICK) 0.4 mg SL tablet Dissolve 1 tablet under the tongue as needed for Chest Pain. insulin aspart (NOVOLOG FLEXPEN) 100 unit/mL inpn Inject 20 Units subcutaneously three times daily with meals. No current facility-administered medications for this visit. ACTIVE PROBLEM LIST Diarrhea Stroke (Cerebrum) (Hcc) Icao (Internal Carotid Artery Occlusion) Type 2 Diabetes Mellitus With Diabetic Polyneuropathy, With Long-Term Current Use of Insulin (Hcc) Cerebral Infarction Due to Stenosis of Right Carotid Artery (Hcc) Left Carotid Artery Occlusion Essential Hypertension Mixed Hyperlipidemia Aaa (Abdominal Aortic Aneurysm) Without Rupture (Hcc) Left Leg Weakness Coronary Artery Disease Involving Coronary Bypass Graft of [place] Heart Ibs (Irritable Bowel Syndrome) Fibromyalgia Summary Non-Pressure Chronic Ulcer of Right Ankle, Limited to Breakdown of Skin (Hcc) Jovanni (Obstructive Sleep Apnea) Postural Dizziness With Presyncope Obesity, Class I, Bmi 30-34.9 H/O Diabetic Gastroparesis Bilateral Carotid Artery Stenosis Av Block, 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 (Headache) Vertebral Artery Stenosis, Bilateral Vertebral Artery Stenosis Left Hemiparesis (Hcc) Abdominal Pain Acute Nontraumatic Kidney Injury (Hcc) Ascending Aortic Aneurysm (Hcc) Biliary Stricture Cardiac Conduction Disorder Conjugated Hyperbilirubinemia Cholelithiasis and Cholecystitis Without Obstruction Encounter for Follow-Up Examination After Completed Treatment for Conditions Other Than Malignant Neoplasm Gastroesophageal Reflux Disease Gastroparesis History of Type 2 Diabetes Mellitus History of Hypertension History of Cerebrovascular Accident Jaundice Migraine Bile Duct Obstruction Peripheral Arterial Disease (Hcc) Polyneuropathy Due to Type 2 Diabetes Mellitus (Hcc) Presence of Stent in Coronary Artery Sinusitis, Acute Traumatic Closed Nondisplaced Fracture of Distal Tibia, Right, Open Type Iii, With Nonunion, Subsequent Encounter Venous Stasis S/P Cabg X 3 PAST MEDICAL HISTORY Diagnosis Date Aortic aneurysm (HCC) Carotid artery stenosis Coronary artery disease Depression Diabetes (HCC) A1C >8.0 06/2021 Diarrhea Dyslipidemia long standing history Fibromyalgia Heart disease High cholesterol Hypertension Longstanding history Obesity, Class I, BMI 30-34.9 04/12/2018 Paroxysmal atrial fibrillation (HCC) 10/06/2016 Stroke (HCC) Suspected obstructive sleep apnea syndrome 02/26/2017 PAST SURGICAL HISTORY Procedure Laterality Date ANES OPEN/SURG ARTHROSCOPIC PROC KNEE JOINT NOS Right ANKLE ARTHROSCOPY/SURGERY Left APPENDECTOMY COLONOSCOPY FLX DX W/COLLJ SPEC WHEN PFRMD 05/30/2013 Colonoscopy HEART SURGERY HX Triple bypas L'SCOPE CHOLECYSTECTOMY 10/30/2021 TONSILLECTOMY HX Social History Tobacco Use Smoking status: Never Smokeless tobacco: Never Substance Use Topics Alcohol use: Yes Comment: seldomly, 1 beer per month Drug use: No FAMILY HISTORY Problem Relation Age of Onset other (lung cancer) Father Diabetes Mother other (pancreatic cancer) Mother Review of Systems Constitutional: Negative for recent unintentional weight loss. Skin: Negative for rash. HENT: Negative for trouble swallowing. Musculoskeletal: Positive for back pain. Fibromyalgia Eyes: Negative for double vision. Gastrointestinal: Gastroparesis Genitourinary: Negative for incontinence. Psychiatric: Depression is under control Lab and Test Review: Appointment on 02/10/2023 Component Date Value Ref Range Status Total Cholesterol, Nonfasting 02/10/2023 101 <200 mg/dL Final <200 mg/dL, Desirable 200-239 mg/dL, Borderline high >239 mg/dL, High Triglycerides, Nonfasting 02/10/2023 259 (H) <150 mg/dL Final <150 mg/dL, Normal 150-199 mg/dL, Borderline high 200-499 mg/dL, High >499 mg/dL, Very high HDL Cholesterol, Nonfasting 02/10/2023 28 (L) >39 mg/dL Final 40-59 mg/dL, Acceptable >59 mg/dL, High: Negative risk factor for coronary heart disease <40 mg/dL, Low: Positive risk factor for coronary heart disease LDL Cholesterol, Nonfasting 02/10/2023 21 <100 mg/dL Final <100 mg/dL, Optimal 100-129 mg/dL, Near optimal/above optimal 130-159 mg/dL, Borderline high 160-189 mg/dL, High >189 mg/dL, Very high Secondary prevention optimal LDL Cholesterol levels are recommended to be < 70 mg/dL Non HDL Cholesterol, Nonfasting 02/10/2023 73 <130 mg/dL Final <130 mg/dL, Optimal 130-159 mg/dL, Near optimal/above optimal 160-189 mg/dL, Borderline high 190-219 mg/dL, High >219 mg/dL, Very high Secondary prevention optimal non HDL Cholesterol levels are recommended to be <100 mg/dL VLDL Cholesterol, Nonfasting 02/10/2023 52 (H) <30 mg/dL Final Total Chol/HDL Ratio, Nonfasting 02/10/2023 3.61 <5.10 mg/dL Final LDL/HDL Ratio, Nonfasting 02/10/2023 0.75 <2.54 mg/dL Final Reference: 1. National Cholesterol Education Program ATP III Guideline At-A-Glance Quick Desk Reference: National Heart, Lung, and Blood [place]. National Institutes of Health. 2001: NIH Publication No. 01-3305. 2. An International Atherosclerosis Society position paper: global recommendations for the management of dyslipidemia: executive summary, Atherosclerosis. 2014: 232(2):410-413. MRI Head/Brain - Last 2 Impressions MRI BRAIN WO IVCON Collected: 07/08/2021 5:17 PM (Final result) Impression: Loss of flow void in the left internal carotid artery compatible with occlusion, of uncertain chronicity. Otherwise, no acute intracranial findings. ... MRI BRAIN WO IVCON Exam End: 05/14/2021 8:26 AM (Final result) Impression: IMPRESSION: Brain parenchymal volume loss and scattered remote infarcts as noted. No evidence for focal acute brain ischemia, mass effect, or hemorrhage. Mild background brain volume loss. Patchy paranasal sinus inflammatory ... MRA Head and/or Neck - Last 2 Impressions MRA BRAIN WO IVCON Exam End: 04/09/2018 8:00 PM (Final result) Impression: IMPRESSION: No acute intracranial findings. Expected evolution of now chronic right occipital hemorrhagic infarct as well as unchanged additional small remote bilateral cortical infarcts as discussed. Chronic left cervical ICA occlusion at the origin with reconstitution of flow in the left ICA terminus through the prominent left posterior communicating artery, unchanged. Mild to moderate narrowing of the right petrous intracranial ICA segment distally. No other intracranial arterial occlusion or significant focal narrowing on intracranial [id number] MRA. Proximal right cervical ICA stent limits evaluation of the stenosis but the vessel is patent distally with normal caliber. No other large vessel occlusion or significant focal narrowing on extracranial [id number] MRA. Rotary Drier Operator: MAO Transcribe Date/Time: Apr 09 2018 8:11P Dictated by : STEWART MAURICE MD This examination was interpreted and the report reviewed and electronically signed by: STEWART MAURICE MD on Apr 09 2018 8:21PM EST MRI Cervical Spine - Last 2 Impressions No resulted procedures found. MRI Lumbar Spine - Last 2 Impressions No resulted procedures found. MRI Thoracic Spine - Last 2 Impressions No resulted procedures found. Outside Data/Labs: Subjective Patient-Entered Data: NM Treatment and Fall Risk No flowsheet data found. PROMIS-10 PROMIS 10 02/07/2023 11/26/2021 In general, would you say your health is: Fair Fair In general, would you say your quality of life is: Fair Fair In general, how would you rate your physical health? Fair Fair In general, how would you rate your mental health, including your mood and your ability to think? Fair Poor In general, how would you rate your satisfaction with your social activities and relationships? Fair Poor To what extent are you able to carry out your everyday physical activities such as walking, climbing stairs, carrying groceries, or moving a chair? A little A little In general, please rate how well you carry out your usual social activities and roles. (This includes activities at home, at work and in your community, and responsibilities as a parent, child, spouse, employee, friend, etc.) Fair Poor How would you rate your pain on average? 8 5 How would you rate your fatigue on average? Moderate Severe How often have you been bothered by emotional problems such as feeling anxious, depressed or irritable? Often Always PROMIS Adult Short Form-Global Health Score (Physical) 32.4 (Poor) 32.4 (Poor) PROMIS Adult Short Form-Global Health Score (Mental) 33.8 (Fair) 25.1 (Poor) PHQ-9 PHQ-9 All Questions 02/07/2023 11/26/2021 Little interest or pleasure in doing things 3 3 Feeling down, depressed, or hopeless 2 3 Trouble falling or staying asleep, or sleeping too much 1 2 Feeling tired or having little energy 2 3 Poor appetite or overeating 1 0 Feeling bad about yourself - or that you are a failure or have let yourself or your family down 2 3 Trouble concentrating on things, such as reading the newspaper or watching television 1 3 Moving or speaking so slowly that other people could have noticed. Or the opposite - being so fidgety or restless that you have been moving around a lot more than usual 0 0 Thoughts that you would be better off , or of hurting yourself in some way 0 0 PHQ-9 Score 12 17 (0-4) minimal depression (5-9) mild depression (10-14) moderate depression (15-19) moderately severe depression (20-27) severe depression Sleep 05/22/2021 Do you snore loudly? Yes Do you often feel sleepy, tired, or fatigued during the day? Yes Have you been told that you stop breathing during sleep? Yes Have you been told or are you being treated for high blood pressure? Yes Probability of moderate-severe sleep apnea (%) SAPS V2 73.56 (Recommend sleep study) Insomnia Severity Index 09/21/2017 Difficulty falling asleep Mild Difficulty staying asleep None Problem waking up too early Mild Satisfied/dissatisfied with current sleep pattern Moderately Satisfied Sleep interferes with daily functions Somewhat Interfering Sleep problems noticeable to others Barely Noticeable Worried/distressed about current sleep problems Not at all Score 7 I spent a total of 60 minutes on the date of the service which included preparing to see the patient, [id number] patient care, completing clinical documentation, obtaining and/or reviewing separately obtained history, performing a medically appropriate examination, counseling and educating the patient/family/caregiver, and ordering medications, tests, or procedures. Garrick Arredondo MD documented in this encounter [facility] 04-28-2023 Hospital Discharge instructions Patient Education 04/28/2023 18:08:37 Stroke: Taking Medications Stroke: Taking Medicines Be sure to refill prescriptions before they run out. Your doctor has given you medicines to reduce the risk of a stroke. But they won t help unless you take them as prescribed. This sheet explains why and how to take your medicines. How your medicines help you They make you feel better so you can do more things you enjoy. They keep your blood from clotting, which helps to prevent stroke. Types of medicines Many types of medicines can help prevent stroke. You may be prescribed one or more of the following: Anticoagulant ( blood thinning ) medicines help prevent blood clots from forming. If you take a blood thinner, you may need regular blood tests. Antiplatelets, such as aspirin, are prescribed for many people who have had a stroke. They make blood clots less likely to form. Aspirin is available [id number]. Blood pressure medicines help lower high blood pressure. You may need to take more than one blood pressure medicine. Cholesterol-lowering drugs make plaque less likely to build up in your artery dupree, which can decrease the risk of stroke. Heart medicines can treat certain heart problems that increase your risk of stroke. Diabetes medicines adjust blood sugar levels. This can prevent problems that lead to stroke. Know which medicines you take To help keep my blood from clotting, I take: To keep my blood pressure lower so it s easier for my heart to pump, I take: Tips for taking medicines Below are tips for taking medicine. Keep in mind that most medicines need to be taken every day even when you feel fine. Ask your doctor if you need to avoid certain foods or alcohol. Also mention if you have problems affording medicine. Have a routine. Take medicine at the same time each day. Use reminders to help stay on track. Some people find using a pill box to organize medicines helpful for this. Take all your medicines. Some work best when used with others. Don t take one type and skip another. Plan ahead. Refill prescriptions before they run out. Be sure to take medicines along if you travel. Never change your dosage or stop taking medication on your own. And if you miss a pill, don t take 2 the next time. Tell your doctor if any medicines causes side effects. Your doctor may change your dose or prescribe a new medicine. Carry a list of your medicines. Bring the list to appointments with healthcare providers. For family and friends Medicines can play a juan role in preventing stroke. This is especially true for people who have already experienced stroke or transient ischemic attack (TIA). To provide support: Make sure your loved one knows how the medicines work and when to take them. Check often to ensure they re taken as directed. Know whether any medicine reacts with certain foods or alcohol. Watch for side effects. Call the doctor if any medicine causes excess bruising, nosebleeds, dizziness, or blurred vision. When to call your healthcare provider Contact your provider right away if you: Have side effects, such as dizziness, nausea, muscle cramps, headache, coughing, swelling, or a skin rash. Are gaining weight. Miss a dose of any of your medicines for a prolonged length of time. [id number] [employer] [address] [place] [address], [place] [address]. All rights reserved. This information is not intended as a substitute for professional medical care. Always follow your healthcare professional's instructions. 04/28/2023 18:08:36 Weakness (Uncertain Cause) Weakness with Uncertain Cause Based on your exam today, the exact cause of your weakness is not certain. But your weakness does not seem to be a sign of a serious illness at this time. Keep an eye on your symptoms and get medical advice as instructed below. Home care Rest at home today. Don't over-exert yourself. Take any medicine as prescribed. For the next few days, drink extra fluids (unless your healthcare provider wants you to restrict fluids for other reasons). Don't skip meals. Unless otherwise directed, continue to take any prescription medicines. Contact your healthcare provider if you have any questions or concerns. Follow-up care Follow up with your healthcare provider, or as advised. When to seek medical advice Call your healthcare provider right away for any of the following: Symptoms get worse Symptoms don't start getting better within 2 days Fever of 100.4 F (38 C) or higher, or as directed by your healthcare provider Call 911 Call 911 for any of these: Chest, arm, neck, jaw, or upper back pain Trouble breathing Numbness or weakness of the face, one arm, or one leg Slurred speech, confusion, or trouble speaking, walking, or seeing Blood in vomit or stool (black or red color) Loss of consciousness Severe headache 1276-2716 [employer] [address] [place] [address]. All rights reserved. This information is not intended as a substitute for professional medical care. Always follow your healthcare professional's instructions. Follow Up Care 04/28/2023 16:28:04 With:Neurology Address: When:05/01/2023 Comments:Keep your follow-up appointment on Monday with your neurologist. With:RAYMOND NDIAYE DO Address: [address] [place] [address] [phone] When:2-4 days [facility] 04-28-2023 Emergency department Discharge summary Discharge Instructions Thank you for allowing [facility] to assist you with your healthcare needs. The following is important discharge information regarding your hospital visit. Diagnosis from Today's Visit History of ischemic stroke Numbness/tingling Weakness of right lower limb What to Do Next Instructions from Your Care Team No qualifying data available. Post Acute Orders No qualifying data available. You Need to Schedule the Following Appointments Follow Up with Neurology When 05/01/2023 12:00 AM EDT Why: Keep your follow-up appointment on Monday with your neurologist. Where: Follow Up with RAYMOND NDIAYE DO When Within 2-4 days Where: [address] [place] [address]- [phone] Allergies NKA Medications Please ask your primary doctor or pharmacist before taking any other medication not listed, including over the counter drugs, herbal medications, vitamins and or supplements as they may interact with your home medications. What How Much When Instructions Last Dose Unchanged carvedilol (carvedilol 6.25 mg oral tablet) 1 tab(s) by mouth Two (2) times a day Unchanged clopidogrel (clopidogrel 75 mg oral tablet) 1 tab(s) by mouth Once a day Unchanged empagliflozin (Jardiance 10 mg oral tablet) 1 tab(s) by mouth Once a day (in the morning) Unchanged gabapentin (gabapentin 600 mg oral tablet) 1 tab(s) by mouth Three (3) times a day Unchanged insulin aspart (Novolog) (NovoLOG FlexPen 100 units/ mL injectable solution) Subcutaneous Two (2) times a day Unchanged insulin glargine (Basaglar KwikPen 100 units/ mL subcutaneous solution) Unchanged metFORMIN (MetFORMIN (Eqv-Glucophage XR) 500 mg oral tablet, EXTENDED RELEASE) 1 tab(s) by mouth Once a day Unchanged pantoprazole (pantoprazole 40 mg oral enteric coated tablet) 1 tab(s) by mouth Once a day Unchanged plecanatide (Trulance 3 mg oral tablet) 1 tab(s) by mouth Once a day Unchanged rosuvastatin (rosuvastatin 40 mg oral tablet) 1 tab(s) by mouth Every day Please take this list to your next doctor s visit. Bring all medications you take, including over the counter medications, herbals and other supplements with you to your doctor s visit. Patients and families are reminded to discard old lists and to update any records with all medication providers or retail pharmacies. Education Materials Stroke: Taking Medicines Be sure to refill prescriptions before they run out. Your doctor has given you medicines to reduce the risk of a stroke. But they won t help unless you take them as prescribed. This sheet explains why and how to take your medicines. How your medicines help you They make you feel better so you can do more things you enjoy. They keep your blood from clotting, which helps to prevent stroke. Types of medicines Many types of medicines can help prevent stroke. You may be prescribed one or more of the following: Anticoagulant ( blood thinning ) medicines help prevent blood clots from forming. If you take a blood thinner, you may need regular blood tests. Antiplatelets, such as aspirin, are prescribed for many people who have had a stroke. They make blood clots less likely to form. Aspirin is available [id number]. Blood pressure medicines help lower high blood pressure. You may need to take more than one blood pressure medicine. Cholesterol-lowering drugs make plaque less likely to build up in your artery dupree, which can decrease the risk of stroke. Heart medicines can treat certain heart problems that increase your risk of stroke. Diabetes medicines adjust blood sugar levels. This can prevent problems that lead to stroke. Know which medicines you take To help keep my blood from clotting, I take: To keep my blood pressure lower so it s easier for my heart to pump, I take: Tips for taking medicines Below are tips for taking medicine. Keep in mind that most medicines need to be taken every day even when you feel fine. Ask your doctor if you need to avoid certain foods or alcohol. Also mention if you have problems affording medicine. Have a routine. Take medicine at the same time each day. Use reminders to help stay on track. Some people find using a pill box to organize medicines helpful for this. Take all your medicines. Some work best when used with others. Don t take one type and skip another. Plan ahead. Refill prescriptions before they run out. Be sure to take medicines along if you travel. Never change your dosage or stop taking medication on your own. And if you miss a pill, don t take 2 the next time. Tell your doctor if any medicines causes side effects. Your doctor may change your dose or prescribe a new medicine. Carry a list of your medicines. Bring the list to appointments with healthcare providers. For family and friends Medicines can play a juan role in preventing stroke. This is especially true for people who have already experienced stroke or transient ischemic attack (TIA). To provide support: Make sure your loved one knows how the medicines work and when to take them. Check often to ensure they re taken as directed. Know whether any medicine reacts with certain foods or alcohol. Watch for side effects. Call the doctor if any medicine causes excess bruising, nosebleeds, dizziness, or blurred vision. When to call your healthcare provider Contact your provider right away if you: Have side effects, such as dizziness, nausea, muscle cramps, headache, coughing, swelling, or a skin rash. Are gaining weight. Miss a dose of any of your medicines for a prolonged length of time. [id number] [employer] [address] [place] [address]. All rights reserved. This information is not intended as a substitute for professional medical care. Always follow your healthcare professional's instructions. Weakness with Uncertain Cause Based on your exam today, the exact cause of your weakness is not certain. But your weakness does not seem to be a sign of a serious illness at this time. Keep an eye on your symptoms and get medical advice as instructed below. Home care Rest at home today. Don't over-exert yourself. Take any medicine as prescribed. For the next few days, drink extra fluids (unless your healthcare provider wants you to restrict fluids for other reasons). Don't skip meals. Unless otherwise directed, continue to take any prescription medicines. Contact your healthcare provider if you have any questions or concerns. Follow-up care Follow up with your healthcare provider, or as advised. When to seek medical advice Call your healthcare provider right away for any of the following: Symptoms get worse Symptoms don't start getting better within 2 days Fever of 100.4 F (38 C) or higher, or as directed by your healthcare provider Call 911 Call 911 for any of these: Chest, arm, neck, jaw, or upper back pain Trouble breathing Numbness or weakness of the face, one arm, or one leg Slurred speech, confusion, or trouble speaking, walking, or seeing Blood in vomit or stool (black or red color) Loss of consciousness Severe headache [employer]. [address] [place] [address]. All rights reserved. This information is not intended as a substitute for professional medical care. Always follow your healthcare professional's instructions. Additional Information VACCINATE! IT SAVES LIVES! Members of the community who have not yet received the COVID-19 vaccine and would like to receive it can visit one of [facility] vaccine clinics. There are many vaccine clinic locations within the [facility]. For locations and available times, please visit [email or web address].g [email or web address] It is important to note that some COVID mobile vaccine clinics are held outdoors and may be canceled in rainy or stormy conditions. To learn more about pediatric vaccinations (ages 5-11), we invite you to visit the [employer] [facility] webpage. [email or web address] [email or web address]-Pvssb-Tbsvlizzthn-[email or web address] fdnv-Bypfz-Yxknacqct.html To learn more about the COVID-19 vaccine, we invite you to visit the CDC website for a list of frequently asked questions. https://www.cdc.gov/coronavirus/2 019-ncov/vaccines/faq.html [facility] Patient Portal Access Instructions: Stay connected with your healthcare team and access your personal medical information anytime with the [employer] Patient Portal. If you would like a full copy of your medical records please contact the [facility] Medical Records Department Monday through Monday between 8a.m. and 4:30p.m. Please follow the directions below to access the portal: 1.Access the email account you provided upon registration to the [facility].2.Look for an invitation email from [facility].3.Open the email and access the invitation link: Accept Invitation to [facility]4.Fill in the required wagner to create your account. Sign into [email or web address] with your username and password that you created in the above steps to stay up to date. You can then view a summary of results, a summary of your visits, and the ability to download your summaries to your computer or send the information securely to a physician. Remember that your healthcare information is confidential, so carefully consider who you will allow to register on the [facility] Patient Portal for access to your information. You can also access the [employer] Patient Portal on the [employer]. Simply click on Health Records under Health Data and then click on the [employer] logo. HOW TO SAFELY DISPOSE OF PRESCRIPTION MEDICATIONS Please use one of the following methods to safely dispose of your unused medications. 1.Use a drug disposal kit: the drug disposal pouch allows you to safely discard your old and unused drugs. Ask your nurse to give you one when you are discharged.2.Visit a local take-back location: Many local pharmacies and police departments have programs that collect old and unwanted prescription drugs. Call your local pharmacy or go to http://Cheers.Rent Here/9M1Al8v to find one close to you.3.Make use of household items: Use cat litter or old coffee grounds to dispose medications if other options are not available. Mix your drugs with these household products, seal them in an airtight container and throw it into the garbage. Call [facility]: [phone] to be sure your drugs can be disposed of in this way. Some medicines may require a different approach.4.Never flush your medications down the toilet. IF YOU HAVE BEEN PRESCRIBED AN OPIOIDS FOR PAIN If you have been prescribed an opioid (such as hydrocodone, oxycodone or morphine), it is critical to understand the possible side effects and risks of opioid pain medications. Even when taken as directed, opioids can have several side effects including: Tolerance, meaning you might need to take more of a medication for the same pain relief. Nausea, vomiting and/or constipation. Sleepiness, dizziness, dry mouth, confusion, depression or itching. Physical dependence, meaning you have withdrawal symptoms when a medication is stopped ? this can develop within a few days. KNOW YOUR RESPONSIBILITIES It is important to know exactly how much and how often to take the opioid pain medications you are prescribed. Never take opioids in higher amounts or more often than prescribed. Do not combine opioids with alcohol or other drugs that cause drowsiness, such as benzodiazepines, also known as benzos, including diazepam and alprazolam, muscle relaxants or sleep aids. Never sell or share prescription opioids. This is illegal. Store opioids in a secure place and out of reach of others (including children, family, friends and visitors). The last page(s) of this document has been signed and retained as a CHART COPY Signatures Patient Education Materials Stroke: Taking Medications Weakness (Uncertain Cause) Medication Leaflets My discharge plan and instructions have been reviewed and explained to me and I,REBECA TOMMY understand my current condition and have read and understand these discharge instructions. I have received a written copy of the plan/instructions. If I have questions, I am aware that I should contact my doctor. 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 Automated exposure control, iterative reconstruction, and/or weight based adjustment of the mA/kV was utilized to reduce the radiation dose to as low as reasonably achievable. COMPARISON: None. HISTORY: ORDERING SYSTEM PROVIDED HISTORY: Reason for Exam: RLE weakness, hx of stroke FINDINGS: BRAIN/VENTRICLES: Area of hypoattenuation in the right occipital lobe consistent with age-indeterminate, likely chronic infarct. There is no acute intracranial hemorrhage, mass effect or midline shift. No abnormal extra-axial fluid collection. The mckinney-white differentiation is maintained without evidence of an acute infarct. There is no evidence of hydrocephalus. ORBITS: The visualized portion of the orbits demonstrate no acute abnormality. SINUSES: The visualized paranasal sinuses and mastoid air cells demonstrate no acute abnormality. SOFT TISSUES/SKULL: No acute abnormality of the visualized skull or soft tissues. IMPRESSION: 1. Area of hypoattenuation in the right occipital lobe consistent age-indeterminate infarct. Please correlate clinically and consider further evaluation with MRI. 2. No acute intracranial hemorrhage. Interpreted by: Jose Martin Rivera Preliminary Report By: Jose Martin Rivera Electronically signed By Jose Martin Rivera Dictated Date: 04/28/2023 5:43:48 PM Prelim Date: 04/28/2023 5:46:52 PM Sign Date: 04/28/2023 5:46:52 PM Ordering Provider: DANIEL ANN [facility] 04-28-2023 Note Sinus rhythm Prolonged TX interval Probable left atrial enlargement Right bundle branch block LVH with IVCD and secondary repol abnrm Borderline prolonged QT interval Electronic Signature: PAUL CELAYA MD 04/28/2023 16:41:39 [facility] 03-10-2023 Miscellaneous Notes Patient already scheduled to see Dr. Bang for 08-31 at 3:40a. Thanks Pretty Ferreira Spoke with Pm. Notified of Dr Bang's recommendations. She voices understanding. Lainey Carter RN Images from the original note were not included. Juan Diego Bang MD You 6 minutes ago (10:57 AM) I have only seen him once in the office as a new patient. He will need an OV with Carolann or myself for an evaluation hans Spouse calls to report pt has been experiencing postural dizziness. Pt held carvedilol. Symptoms resolved. Pt reintroduced coreg 6.25 mg last night. Pt reports dizziness today. Mrs reports pt has checked his BP. She reports off meds BP 178/90 mmHg; with dizziness 100/60 mmHg (one reading of 81/50 mmHg). She reports heart rate normal with all checks. Med list reviewed. Pt is not on metoprolol. Pt is not on lisinopril. Lainey Carter RN documented in this encounter [facility] 03-07-2023 Miscellaneous Notes Clearance for Tommy Jose received for eye surgery procedure on 03/15. [facility] requesting Plavix/Asprin hold 5 days prior Plavix is prescribed and managed by [facility]. Spoke with Mora from requesting office and made her aware. Norma Booker documented in this encounter [facility] 02-23-2023 Note HNO ID: [id number] Author: Juan Diego Bang MD Service: ? Author Type: Physician Type: Progress Notes Filed: 02/23/2023 2:09 PM Note Text: [facility] Cardiology [place] ([facility] Office Bldg (POB)) [address] [id number] OUTPATIENT VISIT DATE 02/23/2023 PRIMARY CARE PHYSICIAN: Raymond Ndiaye [address] [place] [address] CHIEF COMPLAINT: Patient here to establish new cardiology follow-up HISTORY OF PRESENT ILLNESS: Mr. Jose is a 67 year old gentleman with extensive cardiovascular history. He had undergone remote coronary bypass grafting in 2001 with most recent coronary intervention in 2021. He also has a history of carotid artery disease with an occluded left carotid artery and history of right carotid artery stenting. He is treated for hypertension, dyslipidemia and paroxysmal atrial fibrillation. He has not had symptoms of chest pain or pressure. He complains of fatigue and dyspnea on exertion. He has not been participating in a formal exercise program. He denies symptoms concerning for congestive heart failure including PND, orthopnea, or lower extremity edema. He has not had palpitations, lightheadedness, dizziness, or syncope. PAST CARDIAC HISTORY: Mr. Jose is a 66 year old male with history of CAD s/p CABG (2001), s/p PCI to LMT-ostial Lcx and SVG-RCA (2016), s/p PCI LCx 2017, stroke, carotid stenosis, HTN, HLD and COVID May/Jun 2020), who presents today for follow-up visit. PAST MEDICAL HISTORY Diagnosis Date Aortic aneurysm (HCC) Carotid artery stenosis Coronary artery disease Depression Diabetes (HCC) A1C >8.0 06/2021 Diarrhea Dyslipidemia long standing history Fibromyalgia Heart disease High cholesterol Hypertension Longstanding history Obesity, Class I, BMI 30-34.9 04/12/2018 Paroxysmal atrial fibrillation (HCC) 10/06/2016 Stroke (HCC) Suspected obstructive sleep apnea syndrome 02/26/2017 PAST SURGICAL HISTORY Procedure Laterality Date ANES OPEN/SURG ARTHROSCOPIC PROC KNEE JOINT NOS Right ANKLE ARTHROSCOPY/SURGERY Left APPENDECTOMY COLONOSCOPY FLX DX W/COLLJ SPEC WHEN PFRMD 05/30/2013 Colonoscopy HEART SURGERY HX Triple bypas L'SCOPE CHOLECYSTECTOMY 10/30/2021 TONSILLECTOMY HX SOCIAL HISTORY Social History Tobacco Use Smoking status: Never Smokeless tobacco: Never Substance Use Topics Alcohol use: Yes Comment: seldomly, 1 beer per month Drug use: No FAMILY HISTORY Problem Relation Age of Onset other (lung cancer) Father Diabetes Mother other (pancreatic cancer) Mother ALLERGIES: ALLERGIES Allergen Reactions Atorvastatin Other: See Comments Other reaction(s): Muscle aches Nabumetone GI Upset Aripiprazole Other: See Comments MEDICATIONS: lisinopril (ZESTRIL) 5 mg tabletDAILYDisp: Rfl: metFORMIN ER (GLUCOPHAGE XR) 500 mg 24 hr tabletDisp: Rfl: metoprolol tartrate, short acting, (LOPRESSOR) 25 mg tabletTake by mouth.Disp: Rfl: ondansetron orally disintegrating (ZOFRAN ODT) 4 mg disintegrating tabletTake by mouth.Disp: Rfl: rosuvastatin (CRESTOR) 40 mg tabletTake 1 tablet by mouth once daily.Disp: 90 tabletRfl: 3 clopidogrel (PLAVIX) 75 mg tabletTake 1 tablet by mouth once daily.Disp: 90 tabletRfl: 3 gabapentin (NEURONTIN) 600 mg tabletTake 600 mg by mouth once daily as needed (in the morning).Disp: Rfl: aspirin 325 mg tabletTake 325 mg by mouth once daily.Disp: Rfl: carvedilol (COREG) 6.25 mg tabletTake 6.25 mg by mouth twice daily with meals.Disp: Rfl: plecanatide (TRULANCE) 3 mg tabletTake 3 mg by mouth as needed. Disp: Rfl: pantoprazole DR (PROTONIX) 40 mg tabletTAKE 1 TABLET BY MOUTH ONCE DAILY IN THE MORNING BEFORE A MEALDisp: Rfl: fexofenadine (JESSICA) 180 mg tabletTake 180 mg by mouth once daily as needed.Disp: Rfl: nitroglycerin sublingual (NITROQUICK) 0.4 mg SL tabletDissolve 1 tablet under the tongue as needed for Chest Pain.Disp: 90 tabletRfl: 3 insulin aspart (NOVOLOG FLEXPEN) 100 unit/mL inpnInject 20 Units subcutaneously three times daily with meals.Disp: 30 PenRfl: 1 JARDIANCE 10 mg tabletDisp: Rfl: insulin glargine (LANTUS SOLOSTAR U-100 INSULIN) 100 unit/mL (3 mL)Inject 50 Units subcutaneously twice daily.Disp: Rfl: (Patient taking differently: Inject 30 Units subcutaneously twice daily.) REVIEW OF SYSTEMS: Review of Systems Constitutional: Positive for malaise/fatigue. Negative for chills, fever and weight loss. HENT: Negative for hearing loss and sore throat. Eyes: Negative for blurred vision and double vision. Respiratory: Positive for shortness of breath. Cardiovascular: Negative. Gastrointestinal: Negative. Genitourinary: Negative for dysuria, frequency, hematuria and urgency. Musculoskeletal: Negative. Skin: Negative. Neurological: Negative for dizziness, seizures, (more content not included)... [facility] 02-23-2023 History of Present illness Narrative Images from the original note were not included. [facility] SECTION OF [facility] Cardiology [place] ([facility])) [address] [address] OUTPATIENT VISIT DATE 02/23/2023 PRIMARY CARE PHYSICIAN: Raymond Ndiaye [address] [address] CHIEF COMPLAINT: Patient here to establish new cardiology follow-up HISTORY OF PRESENT ILLNESS: Mr. Jose is a 67 year old gentleman with extensive cardiovascular history. He had undergone remote coronary bypass grafting in 2001 with most recent coronary intervention in 2021. He also has a history of carotid artery disease with an occluded left carotid artery and history of right carotid artery stenting. He is treated for hypertension, dyslipidemia and paroxysmal atrial fibrillation. He has not had symptoms of chest pain or pressure. He complains of fatigue and dyspnea on exertion. He has not been participating in a formal exercise program. He denies symptoms concerning for congestive heart failure including PND, orthopnea, or lower extremity edema. He has not had palpitations, lightheadedness, dizziness, or syncope. PAST CARDIAC HISTORY: Mr. Jose is a 66 year old male with history of CAD s/p CABG (2001), s/p PCI to LMT-ostial Lcx and SVG-RCA (2016), s/p PCI LCx 2017, stroke, carotid stenosis, HTN, HLD and COVID Jun 2020), who presents today for follow-up visit. PAST MEDICAL HISTORY Diagnosis Date Aortic aneurysm (HCC) Carotid artery stenosis Coronary artery disease Depression Diabetes (HCC) A1C >8.0 06/2021 Diarrhea Dyslipidemia long standing history Fibromyalgia Heart disease High cholesterol Hypertension Longstanding history Obesity, Class I, BMI 30-34.9 04/12/2018 Paroxysmal atrial fibrillation (HCC) 10/06/2016 Stroke (HCC) Suspected obstructive sleep apnea syndrome 02/26/2017 PAST SURGICAL HISTORY Procedure Laterality Date ANES OPEN/SURG ARTHROSCOPIC PROC KNEE JOINT NOS Right ANKLE ARTHROSCOPY/SURGERY Left APPENDECTOMY COLONOSCOPY FLX DX W/COLLJ SPEC WHEN PFRMD 05/30/2013 Colonoscopy HEART SURGERY HX Triple bypas L'SCOPE CHOLECYSTECTOMY 10/30/2021 TONSILLECTOMY HX SOCIAL HISTORY Social History Tobacco Use Smoking status: Never Smokeless tobacco: Never Substance Use Topics Alcohol use: Yes Comment: seldomly, 1 beer per month Drug use: No FAMILY HISTORY Problem Relation Age of Onset other (lung cancer) Father Diabetes Mother other (pancreatic cancer) Mother ALLERGIES: ALLERGIES Allergen Reactions Atorvastatin Other: See Comments Other reaction(s): Muscle aches Nabumetone GI Upset Aripiprazole Other: See Comments MEDICATIONS: lisinopril (ZESTRIL) 5 mg tablet^DAILY^Disp: ^Rfl: metFORMIN ER (GLUCOPHAGE XR) 500 mg 24 hr tablet^^Disp: ^Rfl: metoprolol tartrate, short acting, (LOPRESSOR) 25 mg tablet^Take by mouth.^Disp: ^Rfl: ondansetron orally disintegrating (ZOFRAN ODT) 4 mg disintegrating tablet^Take by mouth.^Disp: ^Rfl: rosuvastatin (CRESTOR) 40 mg tablet^Take 1 tablet by mouth once daily.^Disp: 90 tablet^Rfl: 3 clopidogrel (PLAVIX) 75 mg tablet^Take 1 tablet by mouth once daily.^Disp: 90 tablet^Rfl: 3 gabapentin (NEURONTIN) 600 mg tablet^Take 600 mg by mouth once daily as needed (in the morning).^Disp: ^Rfl: aspirin 325 mg tablet^Take 325 mg by mouth once daily.^Disp: ^Rfl: carvedilol (COREG) 6.25 mg tablet^Take 6.25 mg by mouth twice daily with meals.^Disp: ^Rfl: plecanatide (TRULANCE) 3 mg tablet^Take 3 mg by mouth as needed. ^Disp: ^Rfl: pantoprazole DR (PROTONIX) 40 mg tablet^TAKE 1 TABLET BY MOUTH ONCE DAILY IN THE MORNING BEFORE A MEAL^Disp: ^Rfl: fexofenadine (JESSICA) 180 mg tablet^Take 180 mg by mouth once daily as needed.^Disp: ^Rfl: nitroglycerin sublingual (NITROQUICK) 0.4 mg SL tablet^Dissolve 1 tablet under the tongue as needed for Chest Pain.^Disp: 90 tablet^Rfl: 3 insulin aspart (NOVOLOG FLEXPEN) 100 unit/mL inpn^Inject 20 Units subcutaneously three times daily with meals.^Disp: 30 Pen^Rfl: 1 JARDIANCE 10 mg tablet^^Disp: ^Rfl: insulin glargine (LANTUS SOLOSTAR U-100 INSULIN) 100 unit/mL (3 mL)^Inject 50 Units subcutaneously twice daily.^Disp: ^Rfl: (Patient taking differently: Inject 30 Units subcutaneously twice daily.) REVIEW OF SYSTEMS: Review of Systems Constitutional: Positive for malaise/fatigue. Negative for chills, fever and weight loss. HENT: Negative for hearing loss and sore throat. Eyes: Negative for blurred vision and double vision. Respiratory: Positive for shortness of breath. Cardiovascular: Negative. Gastrointestinal: Negative. Genitourinary: Negative for dysuria, frequency, hematuria and urgency. Musculoskeletal: Negative. Skin: Negative. Neurological: Negative for dizziness, seizures, loss of consciousness, weakness and headaches. Endo/Heme/Allergies: Negative for environmental allergies. Does not bruise/bleed easily. Psychiatric/Behavioral: Negative for depression. PHYSICAL EXAMINATION: BP 165/86 Pulse 68 Ht 6' 3 (1.91m) Wt 246 lb (111.6kg) SpO2 98% BMI 30.75 kg/(m^2). General: Pleasant gentleman sitting appears comfortable no apparent distress he is alert and oriented x3 HEENT: Carotid upstrokes are brisk on the right. Right carotid bruit noted. No JVD. Pulmonary: Lungs are clear no rales, wheezes, rhonchi Cardiovascular: Normal S1, S2 with regular rate and rhythm. No murmurs, rubs, or gallops Extremities: Warm, well-perfused, no lower extremity edema. 2+ distal pulses CARDIOVASCULAR MEDICINE TESTING: ECG in the office February 23, 2023: Sinus rhythm with first-degree AV block. Left axis deviation with right bundle branch block pattern. No significant ST or T wave changes Cardiac catheterization/PCI WC 01/26/2022: Left Main: Previously placed stent is patent with mild luminal irregularities LAD: Occluded at the ostium mid to distal LAD is small in caliber going from the CHILDERS graft with no angiographically significant disease distal to the graft is insertion LCx: Previously placed stent in the proximal circumflex has an in-stent 85% restenosis the mid circumflex has mild luminal irregularities and diffuse eccentric 25% stenosis. The distal circumflex has mild luminal irregularities and diffuse eccentric disease. OM1 is a small caliber vessel. Proximal vessel fills from the radial artery graft with diffuse 50-70% disease distal to the graft insertion RCA: Occluded proximally Grafts CHILDERS-mid LAD: Patent RA-OM1: Patent SVG-RPDA: Patent with patent stent. PCI: Proximal circumflex ISR treated with balloon angioplasty, Cutting Balloon angioplasty and placement of a 3.5 x 18 mm Orsiro stent. The mid left circumflex was treated with a 2.25 x 22 mm Orsiro stent Cardiac Catheterization/PCI [facility] 02/01/2021: Coronary Findings Diagnostic Dominance: Right Left Main: The vessel is moderate in size. The vessel exhibits minimal luminal irregularities. There is 20% stenosis in the proximal LM. Mid LM lesion is 15% stenosed. The lesion was previously treated using a stent of unknown type. Left Anterior Descending: Ost LAD lesion is 100% stenosed. Left Circumflex: The vessel is large. There is mild diffuse disease throughout the vessel. Prox Cx lesion is 70% stenosed. The lesion was previously treated using a stent of unknown type. Mid Cx-1 lesion is 20% stenosed. Mid Cx-2 lesion is 30% stenosed. Dist Cx lesion is 50% stenosed. First Obtuse Marginal Branch: 1st Mrg lesion is 100% stenosed. Proximal, supply distally by graft. Second Obtuse Marginal Branch: There is mild diffuse disease throughout the vessel. Small to medium in size. 2nd Mrg lesion is 80% stenosed. Proximal. Free Arterial Graft To 1st Mrg: The graft was visualized by angiography. The graft exhibits minimal luminal irregularities. [place] target vessel has diffuse, mild/moderate disease, in addition, there is an 80% stenosis in the mid to distal branch that is smaller in caliber. Prox Graft lesion is 40% stenosed. CHILDERS Graft To Mid LAD: The graft was visualized by angiography. The graft exhibits minimal luminal irregularities. [place] target vessel has diffuse, mild/moderate disease that is smaller in caliber. Saphenous Graft To RPDA: The graft was visualized by angiography. The graft exhibits minimal luminal irregularities. [place] target vessel has diffuse, mild/moderate disease; there are right to left collaterals. Prox Graft lesion is 15% stenosed. Mid Graft lesion is 20% stenosed. The lesion was previously treated using a stent of unknown type. Dist Graft lesion is 20% stenosed. Intervention Prox Cx lesion: PCI: Lesion length: 10 mm. The pre-interventional distal flow is normal (DIMITRI 3). - A CATHETER GUIDING 6FR EBU3.75 CURVE 100CM BRUCE NX BALANCED interventional guide catheter was used to successfully engage the vessel. - A GUIDEWIRE COUGAR XT .014IN 190CM STRAIGHT VASCULAR was used to cross the lesion Angioplasty - BALLOON DILATATION NC EMERGE MONORAIL 3.5MM 15MM 143CM 2. Multiple inflations were performed. Maximum pressure: 19 clem. Inflation time: 10 sec. - BALLOON DILATATION NC EMERGE MONORAIL 4MM 15MM 143CM 2 LUMEN. Maximum pressure: 18 clem. Inflation time: 30 sec. - The post-interventional distal flow is normal (DIMITRI 3). - The intervention was successful. There is a 25% residual stenosis post intervention. Cardiac Catheterization/PCI 2018 LMT: - The LMT has mild diffuse disease. - The ostial LMT is narrowed 20 % - focal disease. LAD: - The LAD has moderate diffuse disease. - The proximal LAD is narrowed 100 % - focal disease. Additional Comment: 100% proximal occlusion. Patent CHILDERS fills large vessel that wraps around the apex and has moderate-severe diffuse disease. LCX: - The Circumflex has moderate diffuse disease. - The proximal circumflex is narrowed 90 % - ISR. Additional Comment: Moderately diseased vessel with 90% in-stent restenosis of proximal LCx. Patent graft to OM. RAMUS: - The Ramus is Absent. RCA: - The mid RCA is narrowed 100 % - focal disease. Additional Comment: RCA is completely occluded in mid segment. Patent SVG to distal RCA with mild ISR of previous intervention 02/28/17. GRAFTS: - Left Internal Mammary Artery Graft Side to Side to the Proximal LAD. - Radial Graft Side to Side to the OM-1 First Obtuse Marginal Branch. - Saphenous Vein Graft Side to Side to the Distal RCA - mild diffuse disease. Procedures Performed: - Successful PCI of the LMT into proximal LCX severe ISR lesion with a 4.0 x 22mm Wild ZES Echocardiogram 01/04/2022 - Technically difficult exam due to body habitus. - Exam indication: CAD - The left ventricle is normal in size. Left ventricular systolic function is normal. EF = 54 5% (2D 4-ch.) 3D volumes/LV strain not obtained due to suboptimal image quality and poor tracking. - The right ventricle is normal in size. Right ventricular systolic function is normal. - The visualized aorta is dilated with a maximal dimension of 4.3 cm. - Trivial MR and TR. - Aortic leaflet sclerosis with no stenosis. There is no AI. Tricuspid aortic valve. - Contrast unavailable - Exam was compared with the prior CC echocardiographic exam performed on 11/12/2020. No significant change. CTA neck 12/13/2021: IMPRESSION: Status post intraluminal stent placement of the origin of each cervical vertebral artery. Patent cervical right ICA following stent placement without significant change since 01/31/2021. Occlusion of the left ICA at the origin. Prior intraluminal stent placement in the petrous right ICA. Severe right carotid siphon stenosis. Collateral filling of the left ICA terminus through a small left PCOM. Distal left vertebral and proximal basilar artery stenoses. IMPRESSION: Mr. Jose is a 67 year old gentleman with a history of coronary artery disease remote coronary bypass grafting and subsequent percutaneous coronary intervention most recently in January 2022 at which time he underwent repeat stenting of the left main into the circumflex to preserve flow to a very small distal left circumflex obtuse marginal branch. The CHILDERS graft to the LAD is widely patent. SVG-RCA patent as well as a patent radial artery graft to the first obtuse marginal branch. I reviewed his catheterization films with him during the office visit. He is also treated for peripheral arterial disease with an occluded left carotid artery and a prior stent to the right internal carotid artery at the time of TIA or CVA. He has a history of hypertension and dyslipidemia. There is a reported history of atrial fibrillation. However, I cannot find any history that he has had documented atrial fibrillation and patient is unaware of this diagnosis. PLAN AND RECOMMENDATIONS: 1. 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ho-chunk heart with stable angina pectoris (HCC) - ICD9: 414.05, 413.9, ICD10: I25.708 (primary diagnosis) I reviewed his catheterization films with interventional left main into left circumflex. I discussed the poor utility of most recent intervention. Is a small territory with multiple layers of stent. Is unlikely to be responsive to repeat intervention. The remaining grafts were widely patent and he had severe diffuse disease in the obtuse marginal system which is not amenable to percutaneous core intervention. If patient has worsening symptoms may consider repeat treadmill ischemic evaluation. However, unless he has graft lesions there is likely no targets for intervention. 2. Aneurysm of ascending aorta without rupture (HCC) - ICD9: 441.2, ICD10: I71.21 Stable at 4.3 cm. Repeat 2D echocardiogram 3. Essential hypertension - ICD9: 401.9, ICD10: I10 Well-controlled on current regimen. 4. Mixed hyperlipidemia - ICD9: 272.2, ICD10: E78.2 Maintained on Crestor 40 mg daily. Most recent fasting blood work showed an LDL of 21 mg/dL 5. Infrarenal abdominal aortic aneurysm (AAA) without rupture (HCC) - ICD9: 441.4, ICD10: I71.43 6. Bilateral carotid artery stenosis - ICD9: 433.10, 433.30, ICD10: I65.23 Patient has repeat carotid ultrasound ordered by neurology. 7. Left carotid artery occlusion - ICD9: 433.10, ICD10: I65.22 Plan for follow-up in 6 months at the [facility] Juan Diego Bang MD documented in this encounter [facility] 02-09-2023 Note HNO ID: [id number] Author: Dana Pabon APRN.DAMEON Service: ? Author Type: Nurse Practitioner Type: Progress Notes Filed: 02/09/2023 9:55 AM Note Text: [facility] Established Visit Consultation is requested by: No referring provider defined for this encounter. PCP: Sariah Sánchez [address] [place] [address] CEREBROVASCULAR HISTORY Tommy Jose is a 67 year old right-handed male. Reason for Visit: stroke - R carotid, b/l vertebral stents, L carotid occlusion Date of Last Event: 10/01/2016 History of Event: PMH significant for HTN, HPL, DM, CAD s/p CABG 15 years ago, known AAA, TIAs 2012, syncopal episode 2014. Developed L leg heaviness and paresthesias of L LE and L hand a few days prior to seeing medical attention. Previous episodic lightheadedness, dizziness, vision changes, HAs. PCP directed him to [facility]. [facility] NAP. Unable to tolerate MRI. CTA showed L ICA occlusion with reconstitution through L PComm and > 75% stenosis R ICA as well as > 70% b/l vertebral stenosis. Transferred to [facility] and NIHSS 0 upon admission. Cardiac enzymes initially elevated OSH but normalized. MRI showed acute R MCA infarct and remote L parietal infarct. TTE showed no abnormal wall motion or atrial enlargement with normal valves, no PFO. He underwent cerebral angiogram which confirmed high grade R ICA stenosis 95%, L ICA occlusion with reconstitution, mod-severe L Vertebral stenosis. He was loaded with plavix and aspirin. He underwent successful angioplasty/stenting (Protege) R ICA. Prior to admission he was not adherent to his aspirin, statin, BP meds but was taking his insulin. He was discharged on DAPT, lipitor 40mg (LDL 93), BP meds, insulin adjusted per endo for uncontrolled DM . In May, underwent stenting of R vertebral artery 05/25/21 and L vertebral artery 06/01/[address] Quintanilla for symptomatic vertebral stenosis with syncope, near syncope. Antiplatelets/Anticoagulants: Aspirin and Clopidogrel Statins: Rosuvastatin Side effects: No Refills needed: No Residual Deficits: Left-sided weakness and Left-sided paresthesias Current PT/OT/ST: No therapy needs Current Living Situation: Home with spouse Current use of a mobility aid for walking/getting around: None Do you have any planned upcoming surgeries or dental procedures? No Interval History: - comes alone - gets dizziness especially when active and exercise - BP 108/50 at rest sitting today; orthostatics checked today and remained similiar between sitting and standing today - adjustments being made to BP meds by his rehabilitation nurse, Dr. Reyna ? spelling at [facility] who will be leaving practice. 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 - no cerebrovascular vessel imaging since 12/2021 - no new symptoms of stroke - ongoing L lower leg weakness, sensory deficits post R MCA strokes in 2017, unchanged - macular degeneration - lasers, injections with improvement in vision - sugars 117 - now seeing endocrinology which is helping great; Hgba1c 8.0 from 8.8 and daily numbers even lower since last check; expect A1c lower next visit for recheck w endo - neuropathy b/l LE/feet affects balance - has compression stockings but does not wear often - admits to not drinking enough fluids daily; reminds him to drink more PAST MEDICAL HISTORY Diagnosis Date Aortic aneurysm (HCC) Carotid artery stenosis Coronary artery disease Depression Diabetes (HCC) A1C >8.0 06/2021 Diarrhea Dyslipidemia long standing history Fibromyalgia Heart disease High cholesterol Hypertension Longstanding history Obesity, Class I, BMI 30-34.9 04/12/2018 Paroxysmal atrial fibrillation (HCC) 10/06/2016 Stroke (HCC) Suspected obstructive sleep apnea syndrome 02/26/2017 PAST SURGICAL HISTORY Procedure Laterality Date ANES OPEN/SURG ARTHROSCOPIC PROC KNEE JOINT NOS Right ANKLE ARTHROSCOPY/SURGERY Left APPENDECTOMY COLONOSCOPY FLX DX W/COLLJ SPEC WHEN PFRMD 05/30/2013 Colonoscopy HEART SURGERY HX Triple bypas L'SCOPE CHOLECYSTECTOMY 10/30/2021 TONSILLECTOMY HX FAMILY HISTORY Problem Relation Age of Onset other (lung cancer) Father Diabetes Mother other (pancreatic cancer) Mother Social History Tobacco Use Smoking status: Never Smokeless tobacco: Never Substance Use Topics Alcohol use: Yes Comment: seldomly, 1 beer per month Drug use: No MEDICATIONS Current Outpatient Medications Medication Sig rosuvastatin (CRESTOR) 40 mg tablet Take 1 tablet by mouth once daily. clopidogrel (PLAVIX) 75 mg tablet Take 1 tablet by mouth once daily. gabapentin (NEURONTIN) 600 mg tablet Take 600 mg by mouth once daily as needed (in the morning). insulin glargine (LANTUS SOLOSTAR U-100 INSULIN) 100 unit/mL (3 mL) Inj (more content not included)... [facility] 02-09-2023 Instructions Dana Pabon APRN.DAMEON - 02/09/2023 9:20 AM EDT No change in medications Refilled crestor and plavix Continue follow up with endocrinology for better control diabetes BP < 130/80 Hydration with goal of 80oz per day noncaffeinated and nonalcoholic beverages LDL < 70 - placed order to recheck HgbA1c < 7.0 Exercise as able - aerobic gives benefits for blood vessel health Slow movements with getting up and position changes My chart re: recommendation to establish cardiology [place] [facility] and imaging recommendation after review Dr. Quintanilla documented in this encounter [facility] 02-09-2023 History of Present illness Narrative [facility] Established Visit Consultation is requested by: No referring provider defined for this encounter. PCP: Sariah Sánchez [address] [place] [address] CEREBROVASCULAR HISTORY Tommy Jose is a 67 year old right-handed male. Reason for Visit: stroke - R carotid, b/l vertebral stents, L carotid occlusion Date of Last Event: 10/01/2016 History of Event: PMH significant for HTN, HPL, DM, CAD s/p CABG 15 years ago, known AAA, TIAs 2012, syncopal episode 2014. Developed L leg heaviness and paresthesias of L LE and L hand a few days prior to seeing medical attention. Previous episodic lightheadedness, dizziness, vision changes, HAs. PCP directed him to [facility]. CT NAP. Unable to tolerate MRI. CTA showed L ICA occlusion with reconstitution through L PComm and > 75% stenosis R ICA as well as > 70% b/l vertebral stenosis. Transferred to [facility] and NIHSS 0 upon admission. Cardiac enzymes initially elevated OSH but normalized. MRI showed acute R MCA infarct and remote L parietal infarct. TTE showed no abnormal wall motion or atrial enlargement with normal valves, no PFO. He underwent cerebral angiogram which confirmed high grade R ICA stenosis 95%, L ICA occlusion with reconstitution, mod-severe L Vertebral stenosis. He was loaded with plavix and aspirin. He underwent successful angioplasty/stenting (Protege) R ICA. Prior to admission he was not adherent to his aspirin, statin, BP meds but was taking his insulin. He was discharged on DAPT, lipitor 40mg (LDL 93), BP meds, insulin adjusted per endo for uncontrolled DM . In May, underwent stenting of R vertebral artery 05/25/21 and L vertebral artery 06/01/[address] Quintanilla for symptomatic vertebral stenosis with syncope, near syncope. Antiplatelets/Anticoagulants: Aspirin and Clopidogrel Statins: Rosuvastatin Side effects: No Refills needed: No Residual Deficits: Left-sided weakness and Left-sided paresthesias Current PT/OT/ST: No therapy needs Current Living Situation: Home with spouse Current use of a mobility aid for walking/getting around: None Do you have any planned upcoming surgeries or dental procedures? No Interval History: - comes alone - gets dizziness especially when active and exercise - BP 108/50 at rest sitting today; orthostatics checked today and remained similiar between sitting and standing today - adjustments being made to BP meds by his rehabilitation nurse, Dr. Reyna ? spelling at [facility] who will be leaving practice. 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 - no cerebrovascular vessel imaging since 12/2021 - no new symptoms of stroke - ongoing L lower leg weakness, sensory deficits post R MCA strokes in 2017, unchanged - macular degeneration - lasers, injections with improvement in vision - sugars 117 - now seeing endocrinology which is helping great; Hgba1c 8.0 from 8.8 and daily numbers even lower since last check; expect A1c lower next visit for recheck w endo - neuropathy b/l LE/feet affects balance - has compression stockings but does not wear often - admits to not drinking enough fluids daily; reminds him to drink more PAST MEDICAL HISTORY Diagnosis Date Aortic aneurysm (HCC) Carotid artery stenosis Coronary artery disease Depression Diabetes (HCC) A1C >8.0 06/2021 Diarrhea Dyslipidemia long standing history Fibromyalgia Heart disease High cholesterol Hypertension Longstanding history Obesity, Class I, BMI 30-34.9 04/12/2018 Paroxysmal atrial fibrillation (HCC) 10/06/2016 Stroke (HCC) Suspected obstructive sleep apnea syndrome 02/26/2017 PAST SURGICAL HISTORY Procedure Laterality Date ANES OPEN/SURG ARTHROSCOPIC PROC KNEE JOINT NOS Right ANKLE ARTHROSCOPY/SURGERY Left APPENDECTOMY COLONOSCOPY FLX DX W/COLLJ SPEC WHEN PFRMD 05/30/2013 Colonoscopy HEART SURGERY HX Triple bypas L'SCOPE CHOLECYSTECTOMY 10/30/2021 TONSILLECTOMY HX FAMILY HISTORY Problem Relation Age of Onset other (lung cancer) Father Diabetes Mother other (pancreatic cancer) Mother Social History Tobacco Use Smoking status: Never Smokeless tobacco: Never Substance Use Topics Alcohol use: Yes Comment: seldomly, 1 beer per month Drug use: No MEDICATIONS Current Outpatient Medications Medication Sig rosuvastatin (CRESTOR) 40 mg tablet Take 1 tablet by mouth once daily. clopidogrel (PLAVIX) 75 mg tablet Take 1 tablet by mouth once daily. gabapentin (NEURONTIN) 600 mg tablet Take 600 mg by mouth once daily as needed (in the morning). insulin glargine (LANTUS SOLOSTAR U-100 INSULIN) 100 unit/mL (3 mL) Inject 50 Units subcutaneously twice daily. (Patient taking differently: Inject 30 Units subcutaneously twice daily.) aspirin 325 mg tablet Take 325 mg by mouth once daily. carvedilol (COREG) 6.25 mg tablet Take 6.25 mg by mouth twice daily with meals. plecanatide (TRULANCE) 3 mg tablet Take 3 mg by mouth as needed. pantoprazole DR (PROTONIX) 40 mg tablet TAKE 1 TABLET BY MOUTH ONCE DAILY IN THE MORNING BEFORE A MEAL fexofenadine (JESSICA) 180 mg tablet Take 180 mg by mouth once daily as needed. nitroglycerin sublingual (NITROQUICK) 0.4 mg SL tablet Dissolve 1 tablet under the tongue as needed for Chest Pain. insulin aspart (NOVOLOG FLEXPEN) 100 unit/mL inpn Inject 20 Units subcutaneously three times daily with meals. magnesium oxide (MAG-OX) 400 mg (241.3 mg magnesium) tablet Take 1 tablet by mouth once daily. Takes PRN lisinopril (ZESTRIL, PRINIVIL) 10 mg tablet Take 1 tablet by mouth once daily. oxyCODONE-acetaminophen (PERCOCET) 5-325 mg tablet Take 1 tablet by mouth every 8 hours as needed for Pain. Current Facility-Administered Medications Medication Dose Route Frequency perflutren lipid microspheres 1.3 mL in NaCl (PF) 0.9% 10 mL injection (DEFINITY) INTRAVENOUS DIRECTED PRN sodium chloride 0.9 % (flush) 10 mL (BD POSIFLUSH) 10 mL INTRAVENOUS DIRECTED PRN ALLERGIES ALLERGIES Allergen Reactions Atorvastatin Other: See Comments Other reaction(s): Muscle aches Nabumetone GI Upset PHYSICAL EXAMINATION BP 108/50 Pulse 70 Resp 18 Ht 190.5 cm (6' 3 ) Wt 111.7 kg (246 lb 3.2 oz) SpO2 97% BMI 30.77 kg/m General: Well-developed, well-nourished, in no acute distress. Neurological: Awake, alert, oriented to person, place, and time. Speech fluent, no dysarthria. Naming, comprehension intact. Good attention and insight into illness. Cranial Nerves: PERRL, extraocular movements intact without nystagmus. Visual wagner full. Facial sensation and movements normal and symmetric. Motor: Normal bulk and tone. No pronator drift or tremor. Sensation: Intact light touch Coordination: Rapid alternating movements symmetric bilaterally. [id number], [id number] without dysmetria bilaterally. Gait: Narrow-based, normal spaced and stable without assistance. LABS Cholesterol: Cholesterol, Total Date Value 12/16/2021 127 mg/dL 07/07/2021 139 MG/dL LDL Cholesterol Date Value 12/16/2021 71 mg/dL 07/07/2021 70 MG/DL HDL Cholesterol Date Value 12/16/2021 31 mg/dL 07/07/2021 25 MG/DL Triglyceride Date Value 12/16/2021 127 mg/dL 07/07/2021 219 MG/DL Diabetes: Hemoglobin A1C (%) Date Value 12/16/2021 7.4 07/07/2021 8.1 IMAGING CTA head and neck 12/13/2021 IMPRESSION: Status post intraluminal stent placement of the origin of each cervical vertebral artery. Patent cervical right ICA following stent placement without significant change since 01/31/2021. Occlusion of the left ICA at the origin. Prior intraluminal stent placement in the petrous right ICA. Severe right carotid siphon stenosis. Collateral filling of the left ICA terminus through a small left PCOM. Distal left vertebral and proximal basilar artery stenoses. TCP 11/29/21 IMPRESSION: The bilateral vertebral artery origin stents are visualized and appear patent. The velocities in the left vertebral artery origin are elevated consistent with 50-99% stenosis. The velocities in the right vertebral artery origin stent are mildly elevated. The remainder of the extracranial vertebral artery velocities are within normal limits. The intracranial vertebral arteries are also within normal limits. The velocities in the mid to distal basilar artery are mildly elevated. The proximal basilar artery is within normal limits. The velocities in the left subclavian artery are elevated consistent with 50-99% stenosis. The right subclavian artery velocities are within normal limits. The spectral Doppler waveforms throughout the left vertebral artery are abnormal in appearance consistent with pending/early subclavian steel. When compared to the patient's most recent previous examination dated 06/02/2021 there has been a marked increase in the velocities of the left vertebral artery origin. The remainder of the extracranial left vertebral artery velocities of also increased. The velocities in the left subclavian artery have increased from the previous exam. The intracranial vertebral artery velocities are decreased with the prior exam. The remainder of the mean flow velocities are essentially unchanged. Today's examination is concerning for possible left vertebral artery stent stenosis. The velocities in the mid to distal basilar artery being elevated when compared to the proximal vessel is also unchanged from the previous examination. MRI Brain 07/08/21 Loss of flow void in the left internal carotid artery compatible with occlusion, of uncertain chronicity. Otherwise, no acute intracranial findings. Multiple small chronic infarcts including in the right occipital lobe and in the posterior parietal lobes bilaterally. Negative for acute infarction. OS CTH 01/31/21 No acute intracranial abnormality OS CTA head/neck 01/31/21 IMPRESSION: 1. Complete occlusion of the left ICA from the common carotid bifurcation through the left cavernous ICA segment. There is supraclinoid reconstitution presumably via the standing rock of [place]. 2. Right ICA carotid stenting with widely patent stent with subtle in-stent plaque but no resulting stenosis. There is however severe stenosis of the right petrous segment of the ICA. 3. Severe stenosis of the origin of the left vertebral artery with approximately 80% narrowing. 4. MR follow-up may be beneficial to evaluate for an acute infarct Patient Entered Questionnaires Health Status Change Since Last Visit 02/07/2023 12/13/2021 11/26/2021 Change Minimally improved Much worse Much improved PROMIS/NeuroQoL Score Percentiles Physical Health 02/07/2023 11/26/2021 06/21/2021 Physical Function Percentile 2 1 4 Sleep Percentile 27* 50 16* Fatigue Percentile 1 1 3 Pain Interference Percentile 1 4 2 PROMIS SOCIAL ROLE SCORE 02/07/2023 11/26/2021 06/21/2021 Social Role Satisfaction Percentile 2 1 1 Mental Health 02/07/2023 11/26/2021 06/21/2021 NeuroQol Cognitive Function Percentile 31 2 16* General Self-Efficacy Percentile 4 54 46 PROMIS Global Health Scale 02/07/2023 11/26/2021 04/02/2021 Physical Health Percentile 4 4 0 Mental Health Percentile 5 1 2 Percentiles provide an indication of how a patient's score ranks in relation to the [place] general population. > 31st percentile is within normal limits or better * < 31st percentile is at least SD worse than population, which may be clinically relevant < 16th percentile is at least 1 SD worse than population and warrants attention Depression Screening: PHQ-9 02/07/2023 11/26/2021 06/21/2021 Score 12 17 10 Self-Harm Response 0 0 0 PHQ-9 Scores: PHQ-9 Self-Harm (Item 9) Response: 0 - 9 No to Mild depression 0 - Not at all 10 - 14 Moderate depression 1 - Several Days > 15 Severe depression 2 - More than half the days 3 - Nearly every day Sleep Apnea Probability Snores loudly: Yes Tired, fatigued or sleepy in daytime: Yes Stops breathing or choking/gasping during sleep: Yes High blood pressure: Yes Sleep Apnea Probability Score 05/22/2021 Sleep Apnea Screen V2 73.56 (Recommend sleep study) Stroke Mechanism and Scales Ischemic or TIA: Ischemic Stroke TOAST Mechanism (CCF-MODIFIED): Large-Artery Atherosclerosis (Embolus/Thrombosis) Large-Artery Atherosclerosis (Embolus/Thrombosis): Extracranial Disease - Anterior Circulation Modified [place] Score: Score: 1 NIH Stroke Scale: LOC: 0 LOC Questions: 0 LOC Commands: 0 LOC Normal Gaze: 0 Visual Wagner: 0 Facial Palsy: 0 Motor Left Arm: 0 Motor Right Arm: 0 Motor Left Le Motor Right Le Limb Ataxia: 0 Sensory: 0 Language: 0 Dysarthria: 0 Extinction/Neglect: 0 Total Daily NIHSS: 0 Stroke Mechanism 09/15/2016 Ischemic Stroke or TIA Ischemic Stroke TOAST Mechanism (CCF-MODIFIED) Large-Artery Atherosclerosis (Embolus/Thrombosis) Large-Artery Atherosclerosis (Embolus/Thrombosis) Extracranial Disease - Anterior Circulation IMPRESSION R MCA ischemic stroke 09/2016 - secondary to high grade R ICA stenosis s/p stenting on 09/20/16. Of note, old L parietal infarct seen on MRI. Residual mild L LE weakness, paresthesias. ON DAPT (recent cardiac stents) and high intensity statin for secondary prevention. L ICA occlusion with collateral filling through small patent PCOM - CTA 12/2021 R carotid stent 09/2016 - patent on CTA 12/2021 B/L vertebral stenting 05/2021 - focal severe stenosis L vertebral artery on CTA 12/[address] Quintanilla review Dizziness likely 2/2 orthostatic hypotension, stable over time . No syncope, falls. CAD s/p CABG 2001 s/p STEMI 08/09/16. s/p cardiac stents 02/28/17, s/p stents 04/2018, s/p PR 01/2021 with angioplasty - on DAPT and high intensity statin. HPL - LDL 71 - crestor 40mg; intolerant 80mg lipitor myalgias. DM2 - HgbA1c 8.0 - endo managing HTN - controlled - managed by cardiology AAA - unruptured; cards following; stable History JOVANNI - past treatment with CPAP which was discontinued following tonsillectomy, adenoidectomy PLAN No change in medications - continue aspirin and plavix daily Refilled crestor and plavix per patient request Continue follow up with endocrinology for better control diabetes with HgbA1c < 7.0 goal BP < 130/80 Hydration with goal of 80oz per day noncaffeinated and nonalcoholic beverages LDL < 70 - placed order to recheck Exercise as able - aerobic gives benefits for blood vessel health Slow movements with getting up and position changes My chart re: recommendation to establish cardiology [facility] and imaging recommendation after review Dr. Quintanilla Medical Decision Making: Medical Decision Making Level: 1 - N/A I spent a total of 35 minutes on the date of service which included preparing to see the patient, [id number] patient care, completing clinical documentation, performing a medically appropriate examination, counseling and educating the patient/family/caregiver, ordering medications, tests, or procedures, and communicating with other HCPs (not separately reported) SIGNATURE Dana Pabon APRN.BROADCAST MAINTENANCE ENGINEER CC No referring provider defined for this encounter. Sariah Sánchez [address] [place] [address] documented in this encounter [facility] 09-28-2022 Note HNO ID: [id number] Author: Rufino Ornelas APRN.DAMEON Service: ? Author Type: Nurse Practitioner Type: Progress Notes Filed: 09/28/2022 5:10 PM Note Text: Subjective HPI HPI Tommy Jose is a 67 year old male who presents today for CC of infection on right hand. This started 1 week ago after burn from pasta sauce. Has tried otc medication for relief. Symptoms are worsened by nothing. Risk factors diabetic. .Patient presents with: Burn: Burn on right hand x 1 week-starting to look infected PAST MEDICAL HISTORY Diagnosis Date Aortic aneurysm (HCC) Carotid artery stenosis Coronary artery disease Depression Diabetes (HCC) A1C >8.0 06/2021 Diarrhea Dyslipidemia long standing history Fibromyalgia Heart disease High cholesterol Hypertension Longstanding history Obesity, Class I, BMI 30-34.9 04/12/2018 Paroxysmal atrial fibrillation (HCC) 10/06/2016 Stroke ([facility]) Suspected obstructive sleep apnea syndrome 02/26/2017 PAST SURGICAL HISTORY Procedure Laterality Date ANES OPEN/SURG ARTHROSCOPIC PROC KNEE JOINT NOS Right ANKLE ARTHROSCOPY/SURGERY Left APPENDECTOMY COLONOSCOPY FLX DX W/COLLJ SPEC WHEN PFRMD 05/30/2013 Colonoscopy HEART SURGERY HX Triple bypas L'SCOPE CHOLECYSTECTOMY 10/30/2021 TONSILLECTOMY HX ALLERGIES Atorvastatin and Nabumetone MEDICATIONS rosuvastatin (CRESTOR) 40 mg tabletTake 1 tablet by mouth once daily.Disp: 90 tabletRfl: 3 clopidogrel (PLAVIX) 75 mg tabletTake 1 tablet by mouth once daily.Disp: 90 tabletRfl: 3 gabapentin (NEURONTIN) 600 mg tabletTake 600 mg by mouth once daily as needed (in the morning).Disp: Rfl: insulin glargine (LANTUS SOLOSTAR U-100 INSULIN) 100 unit/mL (3 mL)Inject 50 Units subcutaneously twice daily.Disp: Rfl: (Patient taking differently: Inject 30 Units subcutaneously twice daily.) aspirin 325 mg tabletTake 325 mg by mouth once daily.Disp: Rfl: carvedilol (COREG) 6.25 mg tabletTake 6.25 mg by mouth twice daily with meals.Disp: Rfl: lisinopril (ZESTRIL, PRINIVIL) 10 mg tabletTake 1 tablet by mouth once daily.Disp: 90 tabletRfl: 2 plecanatide (TRULANCE) 3 mg tabletTake 3 mg by mouth as needed. Disp: Rfl: pantoprazole DR (PROTONIX) 40 mg tabletTAKE 1 TABLET BY MOUTH ONCE DAILY IN THE MORNING BEFORE A MEALDisp: Rfl: fexofenadine (JESSICA) 180 mg tabletTake 180 mg by mouth once daily as needed.Disp: Rfl: nitroglycerin sublingual (NITROQUICK) 0.4 mg SL tabletDissolve 1 tablet under the tongue as needed for Chest Pain.Disp: 90 tabletRfl: 3 insulin aspart (NOVOLOG FLEXPEN) 100 unit/mL inpnInject 20 Units subcutaneously three times daily with meals.Disp: 30 PenRfl: 1 oxyCODONE-acetaminophen (PERCOCET) 5-325 mg tabletTake 1 tablet by mouth every 8 hours as needed for Pain.Disp: Rfl: doxycycline monohydrate 100 mg tabletTake 1 tablet by mouth twice daily for 10 days.Disp: 20 tabletRfl: 0 mupirocin (BACTROBAN) 2 % ointmentApply to affected area three times daily for 10 days.Disp: 22 gRfl: 1 magnesium oxide (MAG-OX) 400 mg (241.3 mg magnesium) tabletTake 1 tablet by mouth once daily. Takes PRNDisp: 30 tabletRfl: 0 FAMILY HISTORY Problem Relation Age of Onset other (lung cancer) Father Diabetes Mother other (pancreatic cancer) Mother Social History Tobacco Use Smoking status: Never Smokeless tobacco: Never Substance Use Topics Alcohol use: Yes Comment: seldomly, 1 beer per month Drug use: No Review of Systems Constitutional: Negative for fever. Skin: Negative for itching and rash. Objective Blood pressure 148/84, pulse 70, temperature 36.2 ?C (97.2 ?F), temperature source Tympanic, resp. rate 16, weight 114.5 kg (252 lb 6.4 oz), SpO2 99 %. Physical Exam Constitutional: General: He is not in acute distress. Appearance: He is not toxic-appearing or diaphoretic. HENT: Head: Normocephalic and atraumatic. Pulmonary: Effort: Pulmonary effort is normal. No accessory muscle usage or respiratory distress. Musculoskeletal: Hands: Neurological: Mental Status: He is alert and oriented to person, place, and time. ASSESSMENT/PLAN: 1. Open wound of finger, initial encounter - ICD9: 883.0, ICD10: S61.209A Start atb as ordered Offered to bandage, patient declined Keep clean Has appt with pcp tomorrow, keep the appointment. - DOXYCYCLINE MONOHYDRATE 100 MG TABLET - MUPIROCIN 2 % TOPICAL OINTMENT Rufino Ornelas APRN.[facility] 09-28-2022 History of Present illness Narrative Images from the original note were not included. Subjective HPI HPI Tommy Jose is a 67 year old male who presents today for CC of infection on right hand. This started 1 week ago after burn from pasta sauce. Has tried otc medication for relief. Symptoms are worsened by nothing. Risk factors diabetic. .Patient presents with: Burn: Burn on right hand x 1 week-starting to look infected PAST MEDICAL HISTORY Diagnosis Date Aortic aneurysm (HCC) Carotid artery stenosis Coronary artery disease Depression Diabetes (HCC) A1C >8.0 06/2021 Diarrhea Dyslipidemia long standing history Fibromyalgia Heart disease High cholesterol Hypertension Longstanding history Obesity, Class I, BMI 30-34.9 04/12/2018 Paroxysmal atrial fibrillation (HCC) 10/06/2016 Stroke (HCC) Suspected obstructive sleep apnea syndrome 02/26/2017 PAST SURGICAL HISTORY Procedure Laterality Date ANES OPEN/SURG ARTHROSCOPIC PROC KNEE JOINT NOS Right ANKLE ARTHROSCOPY/SURGERY Left APPENDECTOMY COLONOSCOPY FLX DX W/COLLJ SPEC WHEN PFRMD 05/30/2013 Colonoscopy HEART SURGERY HX Triple bypas L'SCOPE CHOLECYSTECTOMY 10/30/2021 TONSILLECTOMY HX ALLERGIES Atorvastatin and Nabumetone MEDICATIONS rosuvastatin (CRESTOR) 40 mg tablet^Take 1 tablet by mouth once daily.^Disp: 90 tablet^Rfl: 3 clopidogrel (PLAVIX) 75 mg tablet^Take 1 tablet by mouth once daily.^Disp: 90 tablet^Rfl: 3 gabapentin (NEURONTIN) 600 mg tablet^Take 600 mg by mouth once daily as needed (in the morning).^Disp: ^Rfl: insulin glargine (LANTUS SOLOSTAR U-100 INSULIN) 100 unit/mL (3 mL)^Inject 50 Units subcutaneously twice daily.^Disp: ^Rfl: (Patient taking differently: Inject 30 Units subcutaneously twice daily.) aspirin 325 mg tablet^Take 325 mg by mouth once daily.^Disp: ^Rfl: carvedilol (COREG) 6.25 mg tablet^Take 6.25 mg by mouth twice daily with meals.^Disp: ^Rfl: lisinopril (ZESTRIL, PRINIVIL) 10 mg tablet^Take 1 tablet by mouth once daily.^Disp: 90 tablet^Rfl: 2 plecanatide (TRULANCE) 3 mg tablet^Take 3 mg by mouth as needed. ^Disp: ^Rfl: pantoprazole DR (PROTONIX) 40 mg tablet^TAKE 1 TABLET BY MOUTH ONCE DAILY IN THE MORNING BEFORE A MEAL^Disp: ^Rfl: fexofenadine (JESSICA) 180 mg tablet^Take 180 mg by mouth once daily as needed.^Disp: ^Rfl: nitroglycerin sublingual (NITROQUICK) 0.4 mg SL tablet^Dissolve 1 tablet under the tongue as needed for Chest Pain.^Disp: 90 tablet^Rfl: 3 insulin aspart (NOVOLOG FLEXPEN) 100 unit/mL inpn^Inject 20 Units subcutaneously three times daily with meals.^Disp: 30 Pen^Rfl: 1 oxyCODONE-acetaminophen (PERCOCET) 5-325 mg tablet^Take 1 tablet by mouth every 8 hours as needed for Pain.^Disp: ^Rfl: doxycycline monohydrate 100 mg tablet^Take 1 tablet by mouth twice daily for 10 days.^Disp: 20 tablet^Rfl: 0 mupirocin (BACTROBAN) 2 % ointment^Apply to affected area three times daily for 10 days.^Disp: 22 g^Rfl: 1 magnesium oxide (MAG-OX) 400 mg (241.3 mg magnesium) tablet^Take 1 tablet by mouth once daily. Takes PRN^Disp: 30 tablet^Rfl: 0 FAMILY HISTORY Problem Relation Age of Onset other (lung cancer) Father Diabetes Mother other (pancreatic cancer) Mother Social History Tobacco Use Smoking status: Never Smokeless tobacco: Never Substance Use Topics Alcohol use: Yes Comment: seldomly, 1 beer per month Drug use: No Review of Systems Constitutional: Negative for fever. Skin: Negative for itching and rash. Objective Blood pressure 148/84, pulse 70, temperature 36.2 C (97.2 F), temperature source Tympanic, resp. rate 16, weight 114.5 kg (252 lb 6.4 oz), SpO2 99 %. Physical Exam Constitutional: General: He is not in acute distress. Appearance: He is not toxic-appearing or diaphoretic. HENT: Head: Normocephalic and atraumatic. Pulmonary: Effort: Pulmonary effort is normal. No accessory muscle usage or respiratory distress. Musculoskeletal: Hands: Neurological: Mental Status: He is alert and oriented to person, place, and time. ASSESSMENT/PLAN: 1. Open wound of finger, initial encounter - ICD9: 883.0, ICD10: S61.209A Start atb as ordered Offered to bandage, patient declined Keep clean Has appt with pcp tomorrow, keep the appointment. - DOXYCYCLINE MONOHYDRATE 100 MG TABLET - MUPIROCIN 2 % TOPICAL OINTMENT Rufino Ornelas APRN.DAMEON documented in this encounter [facility] 01-24-2022 Miscellaneous Notes January 24, 2022 Patient Contact Number: [phone] Patient last seen within the last year: Yes Date of last office visit: 01/04/22 Reason For Call: Blood Pressure Changes Patient's called and said that Justin's BP is consistently high. Last night it was 147/79 and this morning it was 194/104. She said he experiences ringing in his ears and pressure headaches. I let her know I would get this message to Dr. Perez but wasn't sure if she would make any adjustments now or have him discuss this at his visit next week. Physician: Candis Perez MD Patient was informed that non-urgent calls may be returned within the next three business days. No, N/A Catherine Bond Adm documented in this encounter [facility] 01-05-2022 Miscellaneous Notes Pt scheduled per request Test Approved: Yes, N/A N/A and PET Perfusion Rest & Stress (0109) LVEF: LV Ejection Fraction (%) Date Value 11/12/2020 56 Additional Comments: N/A Test Approved by: Simon Wilcox MD If additional orders are required route to ordering physician and to P PET HAND PRINTED CIRCUIT BOARD ASSEMBLER [facility] with recommendations. If all recommended orders are present route to P PET HAND PRINTED CIRCUIT BOARD ASSEMBLER [facility] This form is used for MAIN CAMPUS APPOINTMENTS ONLY. Is this request for a Main [place] PET scan appointment? Yes: Paper Bag Press Operator: Beth Vazquez Requesting Person (Candis Perez, ):[phone] Code + Phone/Pager: [phone] Who do we call to schedule this appointment? Patient Requesting Staff Iram Varghese Code + Phone/Pager: N/A PET Orders (A delay in scheduling will result if the orders are not present at time of review): Internal ADDITIONAL ACTION MAY BE REQUIRED IF PATIENTS OON INSURANCE OR SELF PAY COVERAGE HAS NOT BEEN CLEARED FOR REQUESTED APPOINTMENT. Scheduling: KIAH: As soon as insurance will allow What account will this PET appointment be linked to? P/F Type of PET: Oncology: Are there additional diagnostic CT scans required to be done at time of PET scan? No Is the request for a PET MR ? No What account will diagnostic testing appointment be linked to? P/F Will the patient need anesthesia? NO Send requests to P COORD REVIEW [facility] documented in this encounter [facility] 01-04-2022 History of Present illness Narrative Images from the original note were not included. [facility] [place] [facility] Department of Cardiovascular Medicine SECTION OF CARDIOVASCULAR IMAGING OUTPATIENT VISIT DATE January 03, 2022 OUTPATIENT VISIT TYPE ESTABLISHED PRIMARY CARE PHYSICIAN: Sariah Sánchez [address] [address] REFERRING PHYSICIAN: Jeanine Acevedo [address] [facility] [id number] CHIEF COMPLAINT: Follow up HISTORY OF PRESENT ILLNESS: Mr. Jose is a 66 year old male who presents today for follow-up visit. CAD s/p CABG (20 yrs ago), HTN, HL. He had COVID in June 2020 and at his last visit. In October 2021 he had gallbladder surgery, rough recovery but eventually did well. In the past few weeks he has had more shortness of breath. When he tries to do his usual walking he is limited by shortness of breath. Last week he was sitting in his basement, he noticed some fatigue and tiredness. He went upstairs and he felt some pressure in his chest and heavy breathing. He mentioned to his it reminded him of his prior heart attach. He got his nitro and symptoms resolved. He's also noticed hypertension at home, for example SBP was 180's this AM. And then a lot of variability, ranges 120-160's, BP has been all over the place. When BP is high, he notices heavy breathing, sometimes pressure in his head. PAST MEDICAL HISTORY Diagnosis Date Aortic aneurysm (HCC) Carotid artery stenosis Coronary artery disease Depression Diabetes (HCC) A1C >8.0 06/2021 Diarrhea Dyslipidemia long standing history Fibromyalgia Heart disease High cholesterol Hypertension Longstanding history Obesity, Class I, BMI 30-34.9 04/12/2018 Paroxysmal atrial fibrillation (HCC) 10/06/2016 Stroke (HCC) Suspected obstructive sleep apnea syndrome 02/26/2017 PAST SURGICAL HISTORY Procedure Laterality Date ANES OPEN/SURG ARTHROSCOPIC PROC KNEE JOINT NOS Right ANKLE ARTHROSCOPY/SURGERY Left APPENDECTOMY COLONOSCOPY FLX DX W/COLLJ SPEC WHEN PFRMD 05/30/2013 Colonoscopy HEART SURGERY HX Triple bypas L'SCOPE CHOLECYSTECTOMY 10/30/2021 TONSILLECTOMY HX SOCIAL HISTORY Social History Tobacco Use Smoking status: Never Smoker Smokeless tobacco: Never Used Substance Use Topics Alcohol use: Yes Comment: seldomly, 1 beer per month Drug use: No FAMILY HISTORY Problem Relation Age of Onset other (lung cancer) Father Diabetes Mother other (pancreatic cancer) Mother ALLERGIES: ALLERGIES Allergen Reactions Atorvastatin Other: See Comments Other reaction(s): Muscle aches Nabumetone GI Upset MEDICATIONS: rosuvastatin (CRESTOR) 40 mg tablet Take 1 tablet by mouth once daily. magnesium oxide (MAG-OX) 400 mg (241.3 mg magnesium) tablet Take 1 tablet by mouth once daily. Takes PRN gabapentin (NEURONTIN) 600 mg tablet Take 600 mg by mouth once daily as needed (in the morning). insulin glargine (LANTUS SOLOSTAR U-100 INSULIN) 100 unit/mL (3 mL) Inject 50 Units subcutaneously twice daily. aspirin 325 mg tablet Take 325 mg by mouth once daily. carvedilol (COREG) 6.25 mg tablet Take 6.25 mg by mouth twice daily with meals. lisinopril (ZESTRIL, PRINIVIL) 10 mg tablet Take 1 tablet by mouth once daily. plecanatide (TRULANCE) 3 mg tablet Take 3 mg by mouth as needed. pantoprazole DR (PROTONIX) 40 mg tablet TAKE 1 TABLET BY MOUTH ONCE DAILY IN THE MORNING BEFORE A MEAL clopidogrel (PLAVIX) 75 mg tablet Take 1 tablet by mouth once daily. fexofenadine (JESSICA) 180 mg tablet Take 180 mg by mouth once daily as needed. nitroglycerin sublingual (NITROQUICK) 0.4 mg SL tablet Dissolve 1 tablet under the tongue as needed for Chest Pain. insulin aspart (NOVOLOG FLEXPEN) 100 unit/mL inpn Inject 20 Units subcutaneously three times daily with meals. oxyCODONE-acetaminophen (PERCOCET) 5-325 mg tablet Take 1 tablet by mouth every 8 hours as needed for Pain. PHYSICAL EXAMINATION: BP 128/58 Pulse 70 Resp 12 Ht 190.5 cm (6' 3 ) Wt 112 kg (247 lb) SpO2 99% BMI 30.87 kg/m General: Well appearing, in no acute distress. Skin: No clubbing, no cyanosis. Eyes: Extra ocular movements intact Oropharynx: Teeth in good repair. Neck: No jugular venous distention, no carotid bruits, carotids have a normal upstroke, no palpable thyromegaly. Lungs: Clear to auscultation bilaterally, no wheezing or rhonchi. Heart: Regular rhythm, PMI not displaced, S1, S2 normal, no S3, no S4, no heaves, no rub and no murmur. Abdomen: Soft, nontender, bowel sounds normal, no palpable organomegaly, no bruits. Extremities: No peripheral edema . Grade 2/4 distal pulses bilaterally. Neuro: Oriented to person, place and time, alert, cooperative, gait coordinated. CARDIOVASCULAR MEDICINE TESTING: Cholesterol, Total Date Value 12/16/2021 127 mg/dL 07/07/2021 139 MG/dL 05/04/2021 154 mg/dL HDL Cholesterol Date Value 12/16/2021 31 mg/dL 07/07/2021 25 MG/DL 05/04/2021 31 mg/dL LDL Cholesterol Date Value 12/16/2021 71 mg/dL 07/07/2021 70 MG/DL 05/04/2021 92 mg/dL Triglyceride Date Value 12/16/2021 127 mg/dL 07/07/2021 219 MG/DL 05/04/2021 157 mg/dL Last ECHO Result Conclusion ECHO Collected: 07/07/2021 8:06 PM (Final result) Complete Results Last EKG Result Conclusion ECG COMPLETE Collected: 07/07/2021 3:58 AM (Final result) Complete Results IMPRESSION: Mr. Jose is a 66 year old male with CAD s/p CABG and PCI 02/2017 and 04/2018. PLAN AND RECOMMENDATIONS: 1. CAD s/p CABG, PCI x2: he's been having increased dyspnea and occasional chest pressure. Will get a PET stress test to evaluate for ischemia, if abnormal will proceed with cath. 2. HTN: BP normal in clinic today, but he has had a lot of variability at home. Will keep BP log at home and then determine if any changes necessary. 3. HL: lipids at goal 4. Enlarged aorta: stable on echo documented in this encounter [facility] 12-15-2021 Miscellaneous Notes I called Justin to let him know I reviewed the CTA results with Dr. Quintanilla, vertebral stents are okay. Also clarified his symptom of dizziness. He feels lightheaded and pre-syncopal, usually occurs with sitting to standing or when he is active. He also endorses exertional SOB contributing to his lightheadedness. He checks his BP during these episodes and it's usually low, in the 100s. He has appointment with his rehabilitation nurse on 01/04 to continue discussions about his BP medications and symptoms. He denies vertigo or room-spinning sensation, changes in vision. He stays well hydrated with water and Gatorade Zero. His symptoms are more consistent with orthostatic hypotension rather than vertebrobasilar insufficiency. We continue to recommend maximal medical management and optimization of stroke risk factors. - Return to clinic 05/2022 with CUS and TCPs. - He will obtain lab work tomorrow. - Encouraged hydration. - Follow-up with rehabilitation nurse. - Reviewed S/S warranting emergent neurologic care. documented in this encounter [facility] 12-14-2021 Instructions Alvarado Russo APRN.CNP - 12/14/2021 1:18 PM EDT Please have labs drawn at your convenience in the next 1-2 weeks. Stroke Prevention: Aspirin and Plavix daily lifelong Work with your PCP to optimize blood vessel health o LDL < 100 or ideally < 70. o BP < 140/90 or ideally < 130/80. o A1C < 7.0%. Stay on Crestor (regardless of LDL) for plaque stabilization and regression. Diet & exercise: https://www.heart.org/en/healthy- living/healthy-eating/eat-smart/n utrition-basics/bzh-gjxg-jso-life style-recommendations Call 911 right away if you or someone else has any of these stroke symptoms: Sudden numbness or weakness in the face, arm, or leg, especially on one side of the body. Sudden confusion, trouble speaking, or difficulty understanding speech. Sudden trouble seeing in one or both eyes. Sudden trouble walking, dizziness, loss of balance, or lack of coordination. Sudden severe headache with no known cause. documented in this encounter [facility] 12-13-2021 History of Present illness Narrative [facility] Virtual Visit Patient consents to this virtual visit using RunTitlet video visit. The visit required patient-provider interaction for the medical decision making as documented below. Tommy Jose [facility]#: [id number] Date of Service: 11/29/2021 Primary Care Provider: Sariah Sánchez DO FOLLOW UP VISIT Tommy Jose is a 66 year old male, who presents for neurologic evaluation following right ICA stent 09/20/2016 for symptomatic R carotid stenosis with left ICA occlusion and bilateral vertebral artery stents 05/2021 for symptomatic vertebral stenosis. PCP: Sariah Sánchez DO Collaborating Physician: Whitney Quintanilla MD Referring Provider: N/A Date of Last Event: 09/20/2016 Reason for visit: Vertebral stenosis, Carotid Occlusion and Carotid stenosis History of Event: 66 yom with PMH DM, HLD, HTN, pAF, FM, CAD s/p CABG and PCI x 3, AAA, TIA 2012, suspected JOVANNI who presented 09/2016 with LLE heaviness and L hand/LLE paresthesias and found to have right MCA infarct and DSA confirming 95% right ICA stenosis and left ICA occlusion with reconstitution, moederate to severe left VA stenosis. On 09/20/2016, he underwent right ICA angioplasty and stenting. He was discharged on DAPT and referrals for maximal medical management. Serial CUS showed elevated left VA velocities and left SC artery 50-99% stenosis, for which close US monitoring and optimization of vascular risk factors were recommended by Dr. Dee. In 2020, patient reported recurrent syncopal episodes. In setting of VA stenosis, he had DSA that showed bilateral vertebral artery stenosis (right 75% and left 70%), left ICA occlusion with 75% stenosis of left ECA, and patent right ICA stent. On 05/25/2021, he underwent right vertebral artery stent without complications, followed by left vertebral artery stent on 06/01/2021 without complication. CUS at last visit with increased left VA velocities concerning for left VA stent stenosis (50-99%). CTA head/neck were ordered to better assess and he is here to review results of imaging. Interval history: - MYNOR 11/29/2021 - Recently returned from beach vacation. - Continues to report SOB with exertion, lightheadedness, dizziness; stable overall. - Ringing in ears bilaterally, sounds like crickets - Good appetite and bowel function s/p biliary stent and cholecystectomy 10/30/2021 - Made plans to start walking. Has stationary bike downstairs, wants to start riding. - No neurologic symptoms concerning for stroke. Handedness: right-handed Hypertension Y Coronary Artery Disease Y Diabetes Y Obesity NA Dyslipidemia Y Tobacco Use (Please Update Smoking History) N Stroke Y Intracranial Aneurysm N Past Medical History: ACTIVE PROBLEM LIST Diarrhea Stroke (Cerebrum) (Hcc) Icao (Internal Carotid Artery Occlusion) Type 2 Diabetes Mellitus With Diabetic Polyneuropathy, With Long-Term Current Use of Insulin (Hcc) Cerebral Infarction Due to Stenosis of Right Carotid Artery (Hcc) Left Carotid Artery Occlusion Essential Hypertension Mixed Hyperlipidemia Aaa (Abdominal Aortic Aneurysm) Without Rupture (Hcc) Left Leg Weakness Coronary Artery Disease Involving Coronary Bypass Graft of [place] Heart Ibs (Irritable Bowel Syndrome) Fibromyalgia Summary Non-Pressure Chronic Ulcer of Right Ankle, Limited to Breakdown of Skin (Hcc) Jovanni (Obstructive Sleep Apnea) Postural Dizziness With Presyncope Obesity, Class I, Bmi 30-34.9 H/O Diabetic Gastroparesis Stenosis of Right Carotid Artery Av Block, 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 magnesium oxide (MAG-OX) 400 mg (241.3 mg magnesium) tablet Take 1 tablet by mouth once daily. Takes PRN gabapentin (NEURONTIN) 600 mg tablet Take 600 mg by mouth once daily as needed (in the morning). insulin glargine (LANTUS SOLOSTAR U-100 INSULIN) 100 unit/mL (3 mL) Inject 50 Units subcutaneously twice daily. (Patient taking differently: Inject 30 Units subcutaneously twice daily. ) aspirin 325 mg tablet Take 325 mg by mouth once daily. carvedilol (COREG) 6.25 mg tablet Take 6.25 mg by mouth twice daily with meals. lisinopril (ZESTRIL, PRINIVIL) 10 mg tablet Take 1 tablet by mouth once daily. plecanatide (TRULANCE) 3 mg tablet Take 3 mg by mouth as needed. pantoprazole DR (PROTONIX) 40 mg tablet TAKE 1 TABLET BY MOUTH ONCE DAILY IN THE MORNING BEFORE A MEAL clopidogrel (PLAVIX) 75 mg tablet Take 1 tablet by mouth once daily. fexofenadine (JESSICA) 180 mg tablet Take 180 mg by mouth once daily as needed. nitroglycerin sublingual (NITROQUICK) 0.4 mg SL tablet Dissolve 1 tablet under the tongue as needed for Chest Pain. insulin aspart (NOVOLOG FLEXPEN) 100 unit/mL inpn Inject 20 Units subcutaneously three times daily with meals. oxyCODONE-acetaminophen (PERCOCET) 5-325 mg tablet Take 1 tablet by mouth every 8 hours as needed for Pain. lidocaine (LIDODERM) 5 % Apply 1 Patch as directed once daily as needed (back pain). Current Facility-Administered Medications Medication Dose Route Frequency perflutren lipid microspheres 1.3 mL in NaCl (PF) 0.9% 10 mL injection (DEFINITY) INTRAVENOUS DIRECTED PRN sodium chloride 0.9 % (flush) 10 mL (BD POSIFLUSH) 10 mL INTRAVENOUS DIRECTED PRN Social History Tobacco Use Smoking status: Never Smoker Smokeless tobacco: Never Used Substance Use Topics Alcohol use: Yes Comment: seldomly, 1 beer per month Drug use: No Does not work, on disability due to complex medical history of depression, CVA, PR, FM. Lives with . Family History: Subarachnoid hemorrhage: None Aneurysms: None Stroke: None Vascular malformations: None Other neurologic diseases: None Review of Systems Constitutional: Positive for weight loss. HENT: Negative. Eyes: Positive for blurred vision (diabetic retinopathy) and vision loss (diabetic retinopathy). Negative for visual disturbance, double vision and ptosis. Respiratory: Positive for shortness of breath. Cardiovascular: Negative. Gastrointestinal: Negative for abdominal pain, constipation, nausea and vomiting. Hematologic/Lymphatic: Negative. Musculoskeletal: Negative. Skin: Negative. Neurological: Positive for dizziness. Negative for aphasia, headaches, memory difficulty, numbness/tingling, slurred speech and weakness. In addition to HPI Patient Entered Questionnaires PROMIS/NeuroQoL Score Percentiles Physical Health 11/26/2021 06/21/2021 04/02/2021 Physical Function Percentile 1 4 0 Sleep Percentile 50 16* 5 Fatigue Percentile 1 3 0 Pain Interference Percentile 4 2 1 PROMIS SOCIAL ROLE SCORE 11/26/2021 06/21/2021 04/02/2021 Social Role Satisfaction Percentile 1 1 1 Mental Health 11/26/2021 06/21/2021 04/02/2021 NeuroQol Cognitive Function Percentile 2 16* 3 General Self-Efficacy Percentile 54 46 0 PROMIS Global Health Scale 11/26/2021 04/02/2021 08/17/2019 Physical Health Percentile 4 0 1 Mental Health Percentile 1 2 1 Percentiles provide an indication of how a patient's score ranks in relation to the [place] general population. > 31st percentile is within normal limits or better * < 31st percentile is at least SD worse than population, which may be clinically relevant < 16th percentile is at least 1 SD worse than population and warrants attention Depression Screening PHQ-9 04/02/2021 06/21/2021 11/26/2021 Score 18 10 17 Self-Harm Response 0 0 0 PHQ-9 Scores: PHQ-9 Self-Harm (Item 9) Response: 0 - 9 No to Mild depression 0 - Not at all 10 - 14 Moderate depression 1 - Several Days > 15 Severe depression 2 - More than half the days 3 - Nearly every day Sleep Apnea Probability Snores loudly: Yes Tired, fatigued or sleepy in daytime: Yes Stops breathing or choking/gasping during sleep: Yes High blood pressure: Yes Sleep Apnea Probability Score 05/22/2021 Sleep Apnea Screen V2 73.56 (Recommend sleep study) PHYSICAL EXAMINATION There were no vitals taken for this visit. Limited in setting of video visit General: Pleasant, well-developed, well-nourished, in no acute distress. HEENT: Normocephalic, atraumatic. Lungs: Respirations even and unlabored. Neurological: Awake, alert, oriented to person, place, and time. Speech fluent, no dysarthria. Good attention and insight into illness. Cranial Nerves: Extraocular movements grossly intact. Facial movements appear normal and symmetric. Motor: Moves upper extremities freely. IMAGING CTA H/N (12/13/2021): Status post intraluminal stent placement of the origin of each cervical vertebral artery. Patent cervical right ICA following stent placement without significant change since 01/31/2021. Occlusion of the left ICA at the origin. Prior intraluminal stent placement in the petrous right ICA. Severe right carotid siphon stenosis. Collateral filling of the left ICA terminus through a small left PCOM. Distal left vertebral and proximal basilar artery stenoses. TCP (11/29/2021; see full report in imaging): The bilateral vertebral artery origin stents are visualized and appear patent. The velocities in the left vertebral artery origin are elevated consistent with 50-99% stenosis. The spectral Doppler waveforms throughout the left vertebral artery are abnormal in appearance consistent with pending/early subclavian steel. When compared to the patient's most recent previous examination dated 06/02/2021 there has been a marked increase in the velocities of the left vertebral artery origin. Today's examination is concerning for possible left vertebral artery stent stenosis. TCP (06/02/2021): Velocities bilateral vertebral artery origins have decreased when compared to previous examination. Bilateral vertebral artery origin stents are visualized and appeared widely patent. Increased velocities are again noted left subclavian artery compatible stenosis of approximately 50-99%. Waveforms left intracranial vertebral artery canal. Normal. Tardus parvus waveform is no longer identified. LABS Component 05/04/2021 05/24/2021 01/31/2021 (OSH) LDL Cholesterol 92 84 Hemoglobin A1C 8.4 (H) 7.7 (H) Estimated Average Glucose 194 174 Stroke Mechanism 09/15/2016 Ischemic Stroke or TIA Ischemic Stroke TOAST Mechanism ([facility]-MODIFIED) Large-Artery Atherosclerosis (Embolus/Thrombosis) Large-Artery Atherosclerosis (Embolus/Thrombosis) Extracranial Disease - Anterior Circulation IMPRESSION 66 yom with PMH DM, HLD, HTN, pAF, FM, CAD s/p CABG and PCI x 3, AAA, TIA 2012, suspected JOVANNI, cholecystectomy and biliary stent 10/2021, right MCA infarct 09/2016 with right carotid stenosis s/p stenting 09/10/2016, symptomatic bilateral VA stenosis s/p right VA stent 05/25/2021 and left VA stent 06/01/2021, 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 - remains asymptomatic. no endovascular intervention warranted. - return to clinic in 6 months to monitor progress. - continue aspirin and Plavix daily. - check LDL and A1C. follow-up with PCP to optimize vascular risk factors LDL < 100 or ideally < 70. BP < 140/90 or ideally < 130/80. A1C < 7.0%. - stay on Crestor 40 (regardless of LDL) to gain pleiotropic effects of medication, particularly plaque stabilization and regression. - discussed and reinforced lifestyle modifications. - obtain sleep study when able. - reviewed S/S warranting emergent care. All questions/concerns addressed and patient is agreeable to this plan. I will review imaging with Dr. Quintanilla and notify patient of any changes. I spent a total of 35 minutes on the date of the service which included preparing to see the patient, [id number] patient care, completing clinical documentation, obtaining and/or reviewing separately obtained history, performing a medically appropriate examination, counseling and educating the patient/family/caregiver, ordering medications, tests, or procedures, communicating with other HCPs (not separately reported), independently interpreting results (not separately reported), communicating results to the patient/family/caregiver and care coordination (not separately reported). SIGNATURE Alvarado Russo APRN.CNP November 29, 2021 documented in this encounter [facility] 11-29-2021 Instructions Alvarado Russo APRN.CNP - 11/29/2021 12:10 PM EDT Stroke Prevention: Aspirin and Plavix daily lifelong Work with your PCP to optimize blood vessel health o LDL < 100 or ideally < 70. o BP < 140/90 or ideally < 130/80. o A1C < 7.0%. Stay on Crestor for plaque stabilization and regression. Diet and exercise Please schedule sleep study once you have recovered from your recent hospitalization and procedure. Please call [phone] to schedule imaging and testing at your preferred [facility] location. Please call [phone] to schedule an appointment with the [facility] to review results of imaging and testing. Virtual visits are available. Call [phone] right away if you or someone else has any of these stroke symptoms: Sudden numbness or weakness in the face, arm, or leg, especially on one side of the body. Sudden confusion, trouble speaking, or difficulty understanding speech. Sudden trouble seeing in one or both eyes. Sudden trouble walking, dizziness, loss of balance, or lack of coordination. Sudden severe headache with no known cause. documented in this encounter [facility] 11-29-2021 History of Present illness Narrative [facility] Established Visit Tommy Jose [facility]#: [id number] Date of Service: 11/29/2021 Primary Care Provider: Sariah Sánchez DO FOLLOW UP VISIT Tommy Jose is a 66 year old male, who presents for neurologic evaluation following right ICA stent 09/20/2016 for symptomatic R carotid stenosis with left ICA occlusion and bilateral vertebral artery stents 05/2021 for symptomatic vertebral stenosis. This is 6 month PCP: Sariah Sánchez DO Collaborating Physician: Whitney Quintanilla MD Referring Provider: N/A Date of Last Event: 09/20/2016 Reason for visit: Vertebral stenosis, Carotid Occlusion and Carotid stenosis History of Event: 66 yom with PMH DM, HLD, HTN, pAF, FM, CAD s/p CABG and PCI x 3, AAA, TIA 2013, suspected JOVANNI who presented 09/2016 with LLE heaviness and L hand/LLE paresthesias and found to have right MCA infarct and DSA confirming 95% right ICA stenosis and left ICA occlusion with reconstitution, moederate to severe left VA stenosis. On 09/20/2016, he underwent right ICA angioplasty and stenting. He was discharged on DAPT and referrals for maximal medical management. Serial CUS showed elevated left VA velocities and left SC artery 50-99% stenosis, for which close US monitoring and optimization of vascular risk factors were recommended by Dr. Dee. In 2020, patient reported recurrent syncopal episodes. In setting of VA stenosis, he had DSA that showed bilateral vertebral artery stenosis (right 75% and left 70%), left ICA occlusion with 75% stenosis of left ECA, and patent right ICA stent. On 05/25/2021, he underwent right vertebral artery stent without complications, followed by left vertebral artery stent on 06/01/2021 without complication. Patient had visual floaters in 06/2021 and MRI negative for stroke. He is here for his follow-up after stenting and to review results of US completed earlier today. Interval history: - MYNOR 03/17/2021 with Ciara Pabon. No follow-up after stents placed, missed video visits. - biliary stent and cholecystectomy 10/30/2021. - fatigued from hospitalization - lost 20 lbs - constipation/BMs and appetite improving, tolerating more foods without difficulty. - no more syncopal episodes. Feels lightheaded when BP low. - retinopathy and blurry vision improving with better BG control; only wearing readers now. - LLE symptoms unchanged since CVA. - No neurologic symptoms concerning for stroke. - Aspirin and Plavix daily. No bleeding or bruising. - BP 118/57 today, has been low since recent hospitalization; usually 130s/60s with home BP monitoring. Working with PCP and rehabilitation nurse to adjust medications. - LDL 92 in 04/2021. Tolerating Crestor 40mg without side effects. - A1C 8.4% in 05/2021. Overall, feels BS improving; working with PCP. - No sleep study yet; too many medical issues in the past year. - Never used tobacco. - No family history of CVA or ICH. Handedness: right-handed Hypertension Y Coronary Artery Disease Y Diabetes Y Obesity NA Dyslipidemia Y Tobacco Use (Please Update Smoking History) N Stroke Y Intracranial Aneurysm N Past Medical History: ACTIVE PROBLEM LIST Diarrhea Stroke (Cerebrum) (Hcc) Icao (Internal Carotid Artery Occlusion) Type 2 Diabetes Mellitus With Diabetic Polyneuropathy, With Long-Term Current Use of Insulin (Hcc) Cerebral Infarction Due to Stenosis of Right Carotid Artery (Hcc) Left Carotid Artery Occlusion Essential Hypertension Mixed Hyperlipidemia Aaa (Abdominal Aortic Aneurysm) Without Rupture (Hcc) Left Leg Weakness Coronary Artery Disease Involving Coronary Bypass Graft of [place] Heart Ibs (Irritable Bowel Syndrome) Fibromyalgia Summary Non-Pressure Chronic Ulcer of Right Ankle, Limited to Breakdown of Skin (Hcc) Jovanni (Obstructive Sleep Apnea) Postural Dizziness With Presyncope Obesity, Class I, Bmi 30-34.9 H/O Diabetic Gastroparesis Stenosis of Right Carotid Artery Av Block, 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 magnesium oxide (MAG-OX) 400 mg (241.3 mg magnesium) tablet Take 1 tablet by mouth once daily. Takes PRN gabapentin (NEURONTIN) 600 mg tablet Take 600 mg by mouth once daily as needed (in the morning). insulin glargine (LANTUS SOLOSTAR U-100 INSULIN) 100 unit/mL (3 mL) Inject 50 Units subcutaneously twice daily. (Patient taking differently: Inject 30 Units subcutaneously twice daily. ) aspirin 325 mg tablet Take 325 mg by mouth once daily. carvedilol (COREG) 6.25 mg tablet Take 6.25 mg by mouth twice daily with meals. lisinopril (ZESTRIL, PRINIVIL) 10 mg tablet Take 1 tablet by mouth once daily. plecanatide (TRULANCE) 3 mg tablet Take 3 mg by mouth as needed. pantoprazole DR (PROTONIX) 40 mg tablet TAKE 1 TABLET BY MOUTH ONCE DAILY IN THE MORNING BEFORE A MEAL clopidogrel (PLAVIX) 75 mg tablet Take 1 tablet by mouth once daily. fexofenadine (JESSICA) 180 mg tablet Take 180 mg by mouth once daily as needed. nitroglycerin sublingual (NITROQUICK) 0.4 mg SL tablet Dissolve 1 tablet under the tongue as needed for Chest Pain. insulin aspart (NOVOLOG FLEXPEN) 100 unit/mL inpn Inject 20 Units subcutaneously three times daily with meals. oxyCODONE-acetaminophen (PERCOCET) 5-325 mg tablet Take 1 tablet by mouth every 8 hours as needed for Pain. lidocaine (LIDODERM) 5 % Apply 1 Patch as directed once daily as needed (back pain). iv contrast (will be provided with radiology test) CTA Head/Neck W No IV access, insert saline lock prior to the sedation, infusion, injection for imaging exam. Discontinue saline lock post exam. If Pt. has a central line or IVAD, may access for administration according to line specific nursing protocol. Once exam is complete flush line and de-access according to line specific nursing protocol in the CT contrast administration guidelines link. Current Facility-Administered Medications Medication Dose Route Frequency perflutren lipid microspheres 1.3 mL in NaCl (PF) 0.9% 10 mL injection (DEFINITY) INTRAVENOUS DIRECTED PRN sodium chloride 0.9 % (flush) 10 mL (BD POSIFLUSH) 10 mL INTRAVENOUS DIRECTED PRN Social History Tobacco Use Smoking status: Never Smoker Smokeless tobacco: Never Used Substance Use Topics Alcohol use: Yes Comment: seldomly, 1 beer per month Drug use: No Does not work, on disability due to complex medical history of depression, CVA, PR, FM. Lives with . Going to the [employer] this weekend. Family History: Subarachnoid hemorrhage: None Aneurysms: None Stroke: None Vascular malformations: None Other neurologic diseases: None Review of Systems Constitutional: Positive for fatigue and weight loss. HENT: Negative. Eyes: Positive for blurred vision and vision loss. Negative for visual disturbance, double vision and ptosis. Respiratory: Negative. Cardiovascular: Negative. Gastrointestinal: Negative for abdominal pain, constipation, nausea and vomiting. Hematologic/Lymphatic: Negative. Musculoskeletal: Negative. Skin: Negative. Neurological: Positive for dizziness (orthostatic). Negative for aphasia, headaches, memory difficulty, numbness/tingling, slurred speech and weakness. Psychiatric: Positive for depression. In addition to HPI Patient Entered Questionnaires PROMIS/NeuroQoL Score Percentiles Physical Health 11/26/2021 06/21/2021 04/02/2021 Physical Function Percentile 1 4 0 Sleep Percentile 50 16* 5 Fatigue Percentile 1 3 0 Pain Interference Percentile 4 2 1 PROMIS SOCIAL ROLE SCORE 11/26/2021 06/21/2021 04/02/2021 Social Role Satisfaction Percentile 1 1 1 Mental Health 11/26/2021 06/21/2021 04/02/2021 NeuroQol Cognitive Function Percentile 2 16* 3 General Self-Efficacy Percentile 54 46 0 PROMIS Global Health Scale 11/26/2021 04/02/2021 08/17/2019 Physical Health Percentile 4 0 1 Mental Health Percentile 1 2 1 Percentiles provide an indication of how a patient's score ranks in relation to the [place] general population. > 31st percentile is within normal limits or better * < 31st percentile is at least SD worse than population, which may be clinically relevant < 16th percentile is at least 1 SD worse than population and warrants attention Depression Screening PHQ-9 04/02/2021 06/21/2021 11/26/2021 Score 18 10 17 Self-Harm Response 0 0 0 PHQ-9 Scores: PHQ-9 Self-Harm (Item 9) Response: 0 - 9 No to Mild depression 0 - Not at all 10 - 14 Moderate depression 1 - Several Days > 15 Severe depression 2 - More than half the days 3 - Nearly every day Sleep Apnea Probability Snores loudly: Yes Tired, fatigued or sleepy in daytime: Yes Stops breathing or choking/gasping during sleep: Yes High blood pressure: Yes Sleep Apnea Probability Score 05/22/2021 Sleep Apnea Screen V2 73.56 (Recommend sleep study) PHYSICAL EXAMINATION BP 118/57 (BP Site: Right Arm, BP Position: Sitting, BP Cuff Size: Large Adult) Pulse 76 Temp 36 C (96.8 F) (Temporal) Resp 14 Ht 193 cm (6' 4 ) Wt 110.7 kg (244 lb) SpO2 97% BMI 29.70 kg/m General: Well-developed, well-nourished, in no acute distress. HEENT: Normocephalic, atraumatic. Sclerae anicteric. Hard of hearing. Missing a couple teeth. Lungs: Respirations even and unlabored, on room air. Extremities: No edema, cyanosis, or clubbing. Skin: No rash or ecchymoses. Neurological: Awake, alert, oriented to person, place, and time. Speech fluent, no dysarthria. Good attention and insight into illness. Cranial Nerves: PERRL, extraocular movements intact without nystagmus. Visual wagner grossly intact. Facial sensation and movements normal and symmetric. Tongue midline. Shoulder shrug symmetric. Motor: Normal bulk and tone. Strength 5/5 throughout. No pronator drift or tremor. Sensation: Grossly intact light touch. Coordination: [id number] and gujt-dj-rmax without dysmetria bilaterally. Gait: Ambulates easily into the office without assistance. IMAGING TCP (11/29/2021; see full report in imaging): The bilateral vertebral artery origin stents are visualized and appear patent. The velocities in the left vertebral artery origin are elevated consistent with 50-99% stenosis. The spectral Doppler waveforms throughout the left vertebral artery are abnormal in appearance consistent with pending/early subclavian steel. When compared to the patient's most recent previous examination dated 06/02/2021 there has been a marked increase in the velocities of the left vertebral artery origin. Today's examination is concerning for possible left vertebral artery stent stenosis. TCP (06/02/2021): Velocities bilateral vertebral artery origins have decreased when compared to previous examination. Bilateral vertebral artery origin stents are visualized and appeared widely patent. Increased velocities are again noted left subclavian artery compatible stenosis of approximately 50-99%. Waveforms left intracranial vertebral artery canal. Normal. Tardus parvus waveform is no longer identified. LABS Component 05/04/2021 05/24/2021 01/31/2021 (OSH) LDL Cholesterol 92 84 Hemoglobin A1C 8.4 (H) 7.7 (H) Estimated Average Glucose 194 174 Stroke Mechanism and Scales Ischemic or TIA: Ischemic Stroke Modified [place] Score: Score: 1 NIH Stroke Scale: LOC: 0 LOC Questions: 0 LOC Commands: 0 LOC Normal Gaze: 0 Visual Wagner: 0 Facial Palsy: 0 Motor Left Arm: 0 Motor Right Arm: 0 Motor Left Le Motor Right Le Limb Ataxia: 0 Sensory: 0 Language: 0 Dysarthria: 0 Extinction/Neglect: 0 Total Daily NIHSS: 0 Stroke Mechanism 09/15/2016 Ischemic Stroke or TIA Ischemic Stroke TOAST Mechanism ([facility]-MODIFIED) Large-Artery Atherosclerosis (Embolus/Thrombosis) Large-Artery Atherosclerosis (Embolus/Thrombosis) Extracranial Disease - Anterior Circulation IMPRESSION 66 yom with PMH DM, HLD, HTN, pAF, FM, CAD s/p CABG and PCI x 3, AAA, TIA 2012, suspected JOVANNI, recent cholecystectomy and biliary stent 10/2021, right MCA infarct 09/2016 with right carotid stenosis s/p stenting 09/10/2016, symptomatic bilateral VA stenosis s/p right VA stent 05/25/2021 and left VA stent 06/01/2021, 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 - remains asymptomatic. - TCP results reviewed with Dr. Quintanilla; left VA origin velocities significantly increased. - CTA head/neck to better assess left vertebral artery. Contrast injection to RUE preferred. - continue aspirin and Plavix daily. - follow-up with PCP to optimize vascular risk factors; obtain latest lab work for review. - LDL < 100 or ideally < 70. - BP < 140/90 or ideally < 130/80. - A1C < 7.0%. - stay on Crestor 40 (regardless of LDL) to gain pleiotropic effects of medication, particularly plaque stabilization and regression. - obtain sleep study when able, waiting until recovered from cholecystectomy/stent. - follow-up to review results of imaging. - reviewed S/S warranting emergent care. All questions/concerns addressed and patient is agreeable to this plan. I spent a total of 35 minutes on the date of the service which included preparing to see the patient, [id number] patient care, completing clinical documentation, obtaining and/or reviewing separately obtained history, performing a medically appropriate examination, counseling and educating the patient/family/caregiver, ordering medications, tests, or procedures, communicating with other HCPs (not separately reported), independently interpreting results (not separately reported), communicating results to the patient/family/caregiver and care coordination (not separately reported). 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 Dr. Landeros performed a laparoscopic cholecystectomy at [facility] on 10/30/21. The patient currently notes some decreased energy but states he otherwise has been feeling well. His appetite has been gradually improving. He denies fever, chills or abdominal pain. He does note some mild incisional discomfort. VITALS: Blood pressure 130/80, pulse 79, temperature (!) 35.9 C (96.6 F), height 193 cm (6' 4 ), weight 111.4 kg (245 lb 9.6 oz), SpO2 98 %. On examination, the abdomen is benign. The incisions are healing well without signs of infection or inflammation. Assessment IMPRESSION: status post laparoscopic cholecystectomy. Mirizzi syndrome PLAN: I have reviewed my findings with Dr. Landeros, who also participated in development of the following plan. If the patient notes any problems, he should contact me immediately. he may return to his regular activities as tolerated, with the exception of no lifting greater than 20 pounds for the next 3 weeks. The patient is to contact me immediately is he experiences any of his preoperative symptoms. We discussed that occasional right up quadrant symptoms similar to the preoperative complaints can occur in the first couple of weeks post operatively. If this persists beyond the first 2-3 weeks, they should contact our office. -Follow up with Dr. 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 Lidya Yusuf PA-C documented in this encounter [facility] 11-09-2021 Instructions Lidya Yusuf PA-C - 11/09/2021 10:18 AM EDT -Follow up with Dr. Toth to set up stent removal The following instructions are important for you related to your office visit today with the [facility]. INSTRUCTIONS FOLLOWING YOU RECENT GALLBLADDER SURGERY You should be returning to your regular diet, If you have having persistent issues with tolerating your diet, please contact our office It is not unusual to have pain similar to your gallbladder symptoms for the first 1-2 weeks following surgery. If this persists beyond 2 weeks, contact the office. It is not unusual to have loose stools following surgery. This is usually self limited and related to the antibiotics that were given during your surgical procedure. Fiber supplementation and yogurt with active cultures may help you return to regular bowel activity. If you note loose stools persisting for over 2 weeks, or significant cramping or loose bloody stools, contact the office immediately. You should leave the Steri-Strips in place until they fall off. You may return to your regular activities. You may drive if you are no longer taking narcotic pain medication. You should perform no lifting greater than 20lbs for the next 3-4 weeks. Contact the office immediately if any of your incisions become increasingly tender, red or have drainage. Again, if you have any difficulties or concerns, contact our office immediately. If you note any additional difficulties, questions, or concerns, you should contact our office immediately @ [phone] and ask to be transferred to the General Surgery department. documented in this encounter [facility] 10-29-2021 Miscellaneous Notes Email sent to Hira Sesay to obtain replacement card. documented in this encounter [facility] 10-28-2021 Miscellaneous Notes Justin's states Justin is currently in the [facility]. They are wanting an MRI done tomorrow but need clearance from Cardiology in relation to his stents. Explained the ED physician will need to call the provider online advertising director for Dr. Pabon documented in this encounter [facility] 10-13-2021 Miscellaneous Notes Images from the original note were not included. documented in this encounter [facility] 07-09-2021 Note [facility] ramez Rogerson 07-07-2021 Note Physical Therapy Inpatient Evaluation Medical Diagnosis: (L) eye diplopia, occipital CVA Therapy Diagnosis: Rank Code Description 1 R26.2 Difficulty in walking, not elsewhere classified 2 R26.81 Unsteadiness on feet Demographics: Age: 66Y Gender: Male Primary Language: Cymraes Preferred Language: Cymraes Referring Service/Team: Medicine Past Medical History: Past Medical History Vertebral artery stenosis status post stent, coronary artery disease status post CABG, carotid artery disease status post stent right, fibromyalgia, diabetes with retinopathy History of Present Illness: Date of Onset: 07/06/21 Additional Information: Patient 66-year-old male brought into the hospital for evaluation of double vision left eye started yesterday. Patient has a history of retinopathy in the right eye. He has an appointment for laser treatment for his retinopathy. He went to see his autism teacher and he was advised by his autism teacher to come to emergency room as stroke was suspected causing double vision. Patient denies any headache no dizziness no syncope. Patient has very complicated vascular history of vertebral artery stenosis status post stent carotid artery stenosis with complete occlusion on the left side. Has a stent in the vertebral artery as well as carotid. He follows up with vascular surgeon at [facility]. He is maintained on aspirin Plavix and statin which he has been taking without missing. Head CT showed NextSmall low-density area in the right occipital lobe compatible with ischemic infarction, possibly recent. Negative for intracranial hemorrhage or other acute findings. ABOVE RECALLED FROM MEDICAL CHARTING Date of Admission: 07/06/2021 6:22:00 PM Rehabilitation Precautions/Restrictions: STROKE PROTOCOL Imaging/Testing Results from Chart: CT SCAN OF BRAIN: Small low-density area in the right occipital lobe compatible with ischemic infarction, possibly recent. [facility] PATIENT NAME: TOMMY JOSE [address] MEDICAL REC #: [id number] [place] [address] ADMIT DATE: 07/06/21 SERVICE DATE: 07/07/21 Physical Therapy Assessment Report ATTENDING PHY: Fide Chester MD Negative for intracranial hemorrhage or other acute findings. RECALLED FROM MEDICAL CHARTING SUBJECTIVE Prior Level of Functioning: Indoor Mobility: Patient completed the activities by him/herself, with or without an assistive device, with no assistance from a helper. Stairs: Patient completed the activities by him/herself, with or without an assistive device, with no assistance from a helper. Pt reports independence with all activity prior to admission Prior Device Use: Performance GG110. Prior Device None of Above Yes Patient/Caregiver Goals: Patient's functional goals: go home Pain: Patient currently has pain. Location: headache Type: Acute Quality: Aching. Pain Scale: Visual Analog (VAS). Patient reports a pain level of 7 out of 10. Patient's acceptable level of pain 0 out of 10. Interferes with physical activity. Pain is alleviated by: rest Pain is exacerbated by: mobility Interventions: Repositioned patient. Home Environment: Patient lives with , who is able to assist patient at discharge. Patient lives in a single family home. Home is two levels. Patient is required to manage 15 step(s) within the home, with right ascending handrails. First floor full bathroom setup available. No stairs to enter the home. There is no ramp available to enter home. Equipment Owned: Social History: Marital Status: M Children: 3 Reside: local Employment Status: DISABILITY Recreational Activities/Hobbies: FISHING, HIKING, WALKING/OUTDOORS OBJECTIVE Cognitive Screen Responsiveness: Alert. Orientation: Oriented to person, place, time, and situation. Following Commands: Patient is able to follow 3-step commands. [facility] PATIENT NAME: TOMMY JOSE [address] MEDICAL REC #: [id number] [place] [address] ADMIT DATE: 07/06/21 SERVICE DATE: 07/07/21 Physical Therapy Assessment Report ATTENDING PHY: Fide Chester MD Range of Motion Upper Extremity: Grossly within functional limits Lower Extremity: Grossly within functional limits Strength Upper Extremity: Grossly within functional limits Lower Extremity: Grossly within functional limits Tone/Spasticity: No relevant impairments. Sensation: Grossly intact. Balance: Independent and within functional limits. Therapeutic/Functional Activities: Bed Mobility: Patient moves from supine to/from sit with independence. Transfers: Patient transferred sit to/from stand with independence. Locomotion/Gait/Ambulation: Patient was independent with gait (more content not included)... [facility] 07-07-2021 Note Occupational Therapy Inpatient Evaluation CHARGE NURSE PROVIDED APPROVAL TO SEE PATIENT THIS DATE. Medical Diagnosis: 1. CVA (cerebral vascular accident) acute CVA occipital with diplopia, admit to tele, initialte stroke work up. consult neurology, vascular surgery consult if indicated. OCCUPATIONAL PROFILE AND HISTORY Therapy Diagnosis: Rank Code Description 1 H53.2 Diplopia 2 G44 Other headache syndromes 3 H54.2X21 Low Vision right eye category 2, left eye category 1 4 H54.2 Low vision, both eyes Demographics: Age: 66Y Gender: Male Primary Language: Cymraes Preferred Language: Cymraes Referring Service/Team: Medicine Past Medical History: Past Medical History Vertebral artery stenosis status post stent, coronary artery disease status post CABG, carotid artery disease status post stent right, fibromyalgia, diabetes with retinopathy History of Present Illness: 07-06-21 Additional Information: Patient 66-year-old male brought into the hospital for evaluation of double vision left eye started yesterday. Patient has a history of retinopathy in the right eye. He has an appointment for laser treatment for his retinopathy. He went to see his autism teacher and he was advised by his autism teacher to come to emergency room as stroke was suspected causing double vision. Patient denies any headache no dizziness no syncope. Patient has very complicated vascular history of vertebral artery stenosis status post stent carotid artery stenosis with complete occlusion on the left side. Has a stent in the vertebral artery as well as carotid. He follows up with vascular surgeon at [facility]. He is maintained on aspirin Plavix and statin which he has been taking without missing. Head CT showed NextSmall low-density area in the right occipital lobe compatible with ischemic infarction, possibly recent. Negative for intracranial hemorrhage or other acute findings. [facility] PATIENT NAME: TOMMY JOSE [address] MEDICAL REC #: [id number] [place] [address] ADMIT DATE: 07/06/21 SERVICE DATE: 07/07/21 Occupational Therapy Assessment ATTENDING PHY: Fide Chester MD ABOVE RECALLED FROM MEDICAL CHARTING Date of Admission: 07/06/2021 6:22:00 PM Rehabilitation Precautions/Restrictions: FALL RISK MONITOR BP 220/120 ROUTINE STROKE PROTOCOL Imaging/Testing Results from Chart: CT SCAN OF BRAIN: Small low-density area in the right occipital lobe compatible with ischemic infarction, possibly recent. Negative for intracranial hemorrhage or other acute findings. RECALLED FROM MEDICAL CHARTING Prior Level of Functioning: Self Care: Patient completed the activities by him/herself, with or without an assistive device, with no assistance from a helper. Functional Cognition: Patient completed the activities by him/herself, with or without an assistive device, with no assistance from a helper. PATIENT'S WORKS OUTSIDE OF HOME, BUT COMPLETES 90% OF THE HOMEMAKING TASKS Patient/Caregiver Goals: Patient's functional goals: RESOLVE HEADACHE AND IMPAIRED R EYE VISION LOSS Pain: Patient currently has pain. Location: HEADACHE, DID NOT PROVIDE NUMBER RATING Type: Acute Quality: Aching. Pain Scale: Visual Analog (VAS). Patient reports a pain level of 5 out of 10. Patient's acceptable level of pain 0 out of 10. Pain does not interfere with any activity at this time. Pain is alleviated by: NURSING PROVIDED MEDICATION FOR PAIN PRIOR TO OT Pain is exacerbated by: NOT REPORTED, EXCEPT WORSENING W/ GETTING UP Interventions: Patient medicated. Home Environment: Patient lives alone, but assistance is available. WORKS OUTSIDE OF HOUSE BUT DOES MAJORITY OF HOMEMAKING TASKS. Patient lives in a single family home. Home is single level. Patient is required to manage 15 step(s) within the home, with ONE SIDED HR . First floor full bathroom setup available. STEP OVER TUB No stairs to enter the home. There is no ramp available to enter home. PATIENT ID. THAT HE HAS TO USE THE STEPS TO ACCESS THE GARAGE INSIDE OF HOUSE. Equipment Owned: None. Marital Status: M Social History: [facility] PATIENT NAME: TOMMY JOSE [address] Koch MEDICAL REC #: [id number] [place] [address] ADMIT DATE: 07/06/21 SERVICE DATE: 07/07/21 Occupational Therapy Assessment ATTENDING SARA: Fide Chester MD Children: It is unknown whether patient has children Employment Status: DISABILITY Recreational Activities/Hobbies: FISHING, HIKING, WALKING/OUTDOORS LIVES W/ OBJECTIVE/OCCUPATIONAL PERFORMANCE Activities of Daily Living Current Status Previous Status ADLs Feeding Independent - Grooming Independent - Bathing-UE Independ (more content not included)... [facility] 02-02-2021 Miscellaneous Notes Patient received AVS instructions and RN reviewed along with medication list provided by physician @ bedside with emphasis on medication changes, follow up appts and activity restrictions. Patient denies any questions or concerns. Peripheral IV & telemetry discontinued per physician order. Patient tolerated procedure without difficulty. Patient denies having any medications secured in medication room upon admission. Patient discharged home via wheelchair with belongings and copy of discharge instructions accompanied by hospital staff. No signs or symptoms of distress noted. .discharge DAILY PROGRESS NOTE IDENTIFYING INFORMATION PATIENT: Tommy Jose ADMIT DATE: 01/31/2021 TIME OF EVALUATION: 02/01/2021 2:17 PM HOSPITAL STAY: LOS: 1 day SUBJECTIVE/INTERVAL HISTORY Tommy Jose's events from the last 12-24 hours were reviewed. No acute events overnight. This AM, patient describes not doing well, headache and chest pressure. Plan to do [facility] today. ASSESSMENT AND PLAN Tommy Jose is a 65 y.o. male with a history of CAD (s/p CABG 2002, PCI 2017, PCI 2017), thoracic aortic aneurysm, HLD, T2DM, HTN, HLD, TIA, and LE neuropathy who presents with chest pain, diaphoresis, and LLE weakness that occurred while hiking. Plan: #NSTEMI In the setting or rising hs-troponin readings (1,025-1,593) and PMHx, the patient's chest pain that resolved with rest, SOB, diaphoresis, and LLE weakness is likely secondary to a NSTEMI. Last [facility] in 2018. EF 55%. EKGs showing 1st degree AV Block vs. Second Degree, Type 1 AV Block. - Goal directed therapy: sublingual NO PRN, lisinopril 5 mg daily (hold for LHC, restart after procedure), start carvedilol post C, ASA 81 mg (after load with 324 mg in ED), atorvastatin 80 mg daily, heparin infusion - Maintain O2 saturation >90, monitor on telemetry - [facility] on 02/01/2021 #Syncope Patient reports approximately 5-6 episodes of syncope every few months that have been occurring over the last 3 years. Etiology is likely vasodepression vs. AV Block. #AV Block EKGs showing both 1st degree AV Block and Second Degree, Type 1 AV Block. May be contributing to the patient's history of syncope. - Adding coreg for NSTEMI goal directed therapy, monitor HR - Monitor telemetry and if indicated, consider EP consult #LLE Weakness, Resolved Patient has a history of lower extremity weakness 2/2 TIA. This admission, reported new onset of LLE weakness alongside chest pain and SOB. Resolved by time patient reached the hospital. Chronic Medical Problems: LE neuropathy: gabapentin 300 mg TID, duloxetine 30 mg daily Chronic pain: percocet 16hrs PRN, cyclobenzaprine 5 mg at bedtime PRN Allergies: jessica 180 mg daily PRN T2DM: home regimen with lantus 50 units BID, lispro 20 units with meals HLD: continue atorvastatin 80 mg bedtime, triglycerides 196, HDL 25 HTN: continue lisinopril 5 mg daily after C Code Status: Full Code DVT Prophylaxis: Heparin drip Nutrition: DIET NPO with meds Dispo: Home Patient seen and discussed with Dr. Sarah Morales MS3 Acute Coronary Service MEDICATIONS SCHEDULED: aspirin chewable tablet 81 mg, 81 mg, Daily atorvastatin (LIPITOR) tablet 40 mg, 40 mg, QHS clopidogrel (PLAVIX) tablet 75 mg, 75 mg, Daily Diclofenac Sodium (VOLTAREN) 1 % gel 4 g, 4 g, 4x daily DULoxetine (CYMBALTA) capsule DR 30 mg, 30 mg, Daily gabapentin (NEURONTIN) capsule 600 mg, 600 mg, TID insulin glargine (LANTUS) injection 40 Units, 40 Units, QHS insulin lispro (HumaLOG) injection, , 4x daily w/meals, HS [Held by provider] lisinopril (PRINIVIL) tablet 5 mg, 5 mg, Daily metoclopramide (REGLAN) tablet 10 mg, 10 mg, TID AC pantoprazole (PROTONIX) tablet DR 40 mg, 40 mg, Daily FLUIDS/DRIPS: heparin infusion 11 Units/kg/hr (02/01/21 1034) sodium chloride 0.9% 300 mL/hr (02/01/21 1415) PRNs: acetaminophen, 650 mg, Q6H PRN alum/mag hydrox.-simethicone, 30 mL, Q6H PRN cyclobenzaprine, 5 mg, QHS PRN insulin lispro, , PRN And dextrose, 7.5-25 g, As directed PRN And glucose, 1-2 Tube, As directed PRN fexofenadine, 180 mg, Daily PRN magnesium oxide, 800 mg, As directed PRN Magnesium Sulfate IVPB, 4 g, As directed PRN melatonin, 3 mg, QHS PRN nitroGLYCERIN, 0.4 mg, Q5 MIN PRN oxyCODONE-acetaminophen, 1 tablet, Q6H PRN polyethylene glycol, 17 g, Daily PRN Polyvinyl Alcohol-Povidone PF, 1 drop, PRN potassium chloride, 20 mEq, As directed PRN potassium chloride, 40-60 mEq, As directed PRN senna, 8.6 mg, Q12H PRN sodium chloride 0.9%, 250 mL, PRN ALLERGIES: He is allergic to atorvastatin. OBJECTIVE FINDINGS Vital Signs (24hrs): Temp: [97.6 F (36.4 C)-97.9 F (36.6 C)] 97.9 F (36.6 C) Pulse (Heart Rate): [68-92] 69 Resp Rate: [10-35] 14 BP: (99-193)/(56-92) 143/65 O2 Sat (%): [89 %-99 %] 99 % Weight: [117.1 kg (258 lb 2.5 oz)-129.7 kg (286 lb)] 117.1 kg (258 lb 2.5 oz) Hemodynamic/Invasive Device Data (24 hrs): Art Line (2) Monitoring Arterial Line (2) BP : 156/66 Arterial Line (2) MAP : 99 Pulmonary/Cardiac Hemodynamics Pulse (Heart Rate): 69 BSA (Calculated - sq m): 2.45 m2 Neuro ICP/CPP Monitoring MAP (mmHg): 99 mmHg Neuro ICP/CPP Monitoring 2 MAP (mmHg): 99 mmHg Ventilation/Oxygen Therapy (24hrs): Oxygen Therapy O2 Sat (%): 99 % O2 Device: nasal cannula Flow (L/min): 2 Oxygen Delivery/Consumption Hemodynamics BSA (Calculated - sq m): 2.45 m2 Lines/Drains/Airways/Wounds: Patient Lines/Drains/Airways Status Active Lines, Drains, Airways, & Wound Overview Name Placement date Placement time Site Days Peripheral IV Line - Single Lumen 01/31/21 metacarpal vein (top of hand), right 20 gauge 01/31/21 1 Peripheral IV Line - Single Lumen 01/31/21 1604 median cubital vein (antecubital fossa), left 20 gauge 01/31/21 1604 less than 1 Sheath (CV Access Device) 02/01/21 1242 Arterial 6 Fr 10 cm Right femoral Label 1 02/01/21 1242 femoral less than 1 Fluid Management (24hrs): -Intake/Output last 3 shifts: I/O last 3 completed shifts: In: 335.2 [P.O.:200; I.V.:135.2] Out: 0 Physical Examination: Gen: No acute distress but feeling unwell this AM due to headache and chest pressure, well appearing, alert, interactive HEENT: PERRL, EOMI, good conjugate gaze, nares patient Neck: supple, no LAD, normal ROM CV: RRR, normal s1/s2, LL sternal border systolic murmur Pulm: normal respiratory effort, no wheezing, rhonchi, or rales, lungs clear to auscultation bilaterally Abd: soft, non-distended, non-tender, normal bowel sounds, no masses Ext: normal tone and ROM, strength and sensation intac Neuro: alert and oriented x 3, cranial nerves II to XII intact, reflex symmetric, sensation normal, gait normal DIAGNOSTIC RESULTS/PROCEDURES Labs-ABGs Labs-CBC WBC/Hgb/Hct/Plts: 6.90/15.1/44.0/132 (02/01 250) Labs-Chem 7(PMC) Bun/Creat/Cl/CO2/Glucose: 17/1.12/104/25/250 (02/01 249-02/02 620) Na/K+/Phos/Mg/Ca: 137/3.6/--/1.8/8.7 (01/31 1959-02/01 249) Labs-Coags Ptt/Pt/Inr: 100.6/14.3/1.1 (01/31 1958-02/02 904) Additional Labs Lab Results Component Value Date BNP 27 01/31/2021 Lab Results Component Value Date TROP 590.500 (HH) 01/31/2021 TROP 406.000 (HH) 01/31/2021 Lab Results Component Value Date CHOLESTEROL 148 01/31/2021 TRIG 196 (H) 01/31/2021 HDL 25 (L) 01/31/2021 Imaging/Radiological Studies: EKst degree AV block with LBBB vs. 2nd degree AV Block, Type 1 CT Head w/o contrast: no acute processes CT Angio: complete occlusion of L ICA; R ICA with stenting and severe stenosis; severe stenosis of L vertebral artery Infectious: N/A Consults/Procedures: IP CONSULT TO CARDIAC REHAB IP CONSULT TO CARDIAC REHAB Pérez Morales MS3 Acute Coronary Service Preliminary Report - Brief Cardiac Catheterization Procedure Note Tommy Jose ([id number]) Pre Procedural Diagnosis NSTEMI (non-ST elevated myocardial infarction) [I21.4] Post Procedural Diagnosis Obstructive ho-chunk CAD Patent 3/3 bypass grafts Procedure Performed Left heart catheterization, Coronary angiogram, Bypass angiogram and Percutaneous coronary intervention Access Site/Hemostasis Right femoral artery, Sheath left in Findings Left Ventricular End Diastolic Pressure: Elevated Left Ventricular Ejection Fraction: Not assessed Preliminary Results of Angiography Obstructive CAD Percutaneous Coronary Intervention Balloon angioplasty, left circumflex, Number of Stents 0 Intraprocedure Anticoagulation Heparin Post-procedure Anticoagulation Anticoagulation to be restarted: No Estimated Blood Loss Minimal Complications None Surgeon Surgeon(s) and Role: * Vaibhav Ham MD - Primary * Faye Mcdermott MD - Fellow * Martinez Garrett MD - Fellow Procedural Staff Electric Meter Inspector: RT Pili Sedation Nurse: Jayleen Giraldo RN Documenter: Lotus Hermosillo RN Full report to follow Martinez Garrett MD February 01, 2021 1:50 PM I certify that this patient requires inpatient services at this time. I anticipate the expected length of stay will include at least two midnights. 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 Plans for post hospitalization care will be discharge to home vs home with home health. Jes Barcenas MD Internal Medicine PGY-2 documented in this encounter [facility] 02-02-2021 History of Present illness Narrative Inpatient Cardiac Rehab Consultation AND Activity Session Completed. RN approved, as tolerated, and patient agreeable to visit. Patient reports feeling OK without complaints. Activity Session: Activity/Level of Assistance amb in mccloud, SBA Ambulation Distance (feet) 200 Symptoms Noted During/After Activity none Positioning Up in chair, call light within reach RN notified/aware. Encouraged continued ambulation and discussed appropriate activity progression. Patient participation in outpatient cardiac rehab was discussed. Patient is interested in participating in rehab at their local facility: [facility]. AMB REFERRAL TO CARDIAC REHAB HAS BEEN PENDED. PLEASE REVIEW AND SIGN ORDER PRIOR TO DISCHARGE SO THE AMB REFERRAL CAN BE SENT TO APPROPRIATE FACILITY BY THE INPATIENT REHAB TEAM. Discharge education provided to the patient. Printed materials provided/reviewed: CAD book and cath care site handout (leg). Patient s questions/concerns were addressed and topics below were discussed. 1. Pathophysiology of CAD/PR 2. Left Heart Cath 3. Target Lipid Profile 4. Heart Healthy Dietary Guidelines 5. Cardiac Medications 6. Signs/Symptoms to Monitor/Report 7. Risk Factor Modification/Reduction 8. Activity Guidelines/Recommendations We will continue to follow up with patient as needed until discharge for education review and activity progression. DAINA Pardo ([id number]) IP Cardiopulmonary and Vascular Rehabilitation Final Discharge Planning Final Discharge Planning Discharge Disposition: Home Plan Plan: Pt to return home at discharge. Patient/Family In Agreement With Plan: yes Plan Comments: Appointments scheduled as requested per medical team; cardio 03/11. BASILIO Mirza, RN, PCCN Clinical Gun Stock Maker - [facility] Department of Pharmacy Admission Medication Reconciliation Note Patient: Tommy Jose Room/Bed: The patient's allergies have been reviewed with Patient's family member/caregiver (Verenice Jose ), and I have reviewed the patient's home medication list with the following sources [email or web address], Contacted [facility] pharmacy ( ), Patient's family member/caregiver (Vereniceyari Jose ) and [facility]. I have also reviewed this list with the pharmacist. All changes to the home medication list have been updated in [facility]. Updated [employer] Med List: Prior to Admission Medications Prescriptions Basaglar KwikPen 100 UNIT/ML Solution Pen-injector injection Sig: Inject 50 Units under the skin 2 times daily. DULoxetine [address] Particles capsule DR Sig: Take 20 mg by mouth daily. Trulance 3 MG tablet Sig: Take 3 mg by mouth daily. NOTE: Prescribed 3 mg daily - patient reports taking as needed. aspirin EC [address] Sig: Take 81 mg by mouth daily. atorvastatin 80 MG tablet Sig: Take 40 mg by mouth at bedtime. NOTE: Prescribed as 80 mg once daily - patient reports taking half tablet (40 mg) once daily. clopidogrel 75 MG tablet Sig: Take 75 mg by mouth daily. cyclobenzaprine 10 MG tablet Sig: Take 10 mg by mouth 3 times daily as needed. fexofenadine 180 MG tablet Sig: Take 180 mg by mouth daily as needed for Allergies. gabapentin 600 MG tablet Sig: Take 600 mg by mouth Three times a day. NOTE: Prescribed 600 mg three times daily - patient reports using as needed due to drowsiness. insulin aspart 100 UNIT/ML Solution Sig: Inject 20 Units under the skin 3 times daily (take before meals). lisinopril 5 MG tablet Sig: Take 5 mg by mouth daily. metoclopramide 10 MG tablet Sig: Take 10 mg by mouth 2 times daily with meals. NOTE: Prescribed to take twice daily before meals - patient reports taking as needed. nitroGLYCERIN 0.4 MG tablet SL Sig: Place 0.4 mg under tongue every 5 minutes as needed for Chest pain. max = 3 doses. If CP persists after 1st dose, call 911 pantoprazole [address] tablet Sig: Take 40 mg by mouth daily. NOTE: Prescribed to take once daily - patient reports taking as needed. Facility-Administered Medications: None Added to Home Medications: N/A Deleted from Home Medications: N/A Edits to Home Medications: Basaglar 100 units/mL: injecting 50units AM and 50 in the evening (from no dose) Insulin Aspart: Inject 20 units under the skin before meals. (changed from insulin 70/30) Other Comments: Atorvastatin: Patient taking 1/2 tablet (40mg) due to muscle ache as directed by their MD. Clopidogrel: patient was not adherent. Patient needs refill soon. Last filled in Jul. Patient's said he was not taking it before and just started taking it few weeks ago. Gabapentin: Patient taking it as needed only due to drowsiness. Lisinopril: Last filled in Aug. For 30DS. Patient's reported he still taking it. Metoclopramide, Pantoprazole, and Trulance: all taking as needed only. Nitroglycerin: Last filled in June (patient needs new refill) Please feel free to contact me with any further questions. Name: Rudy Draper, Pharm Student Preceptor: Sariah Emerson Phone #: [phone] Date/Time: 02/01/2021 3:43 PM Time Spent: 100 minutes Internal Medicine Daily Progress Note Patient: Tommy Jose, 1955, [id number] Physician: Steven Mendosa MD, PGY-1, Pager #[phone], ACS service Assessment/Plan: Tommy Jose is a 65 y.o. male with PMH of CAD (s/p CABG 2001, PCI 2017 RAY/EES to prox LCx, PCI 2018 RAY/ZES to prox LCx), thoracic aortic aneurysm, HLD, T2DM, HTN, HLD, TIA, and lower extremity neuropathy who presented as OSH ([facility] ED) transfer for NSTEMI. Major updates for today: - IV hydralazine 10mg x1 for elevated systolic BP 170s prior to LHC - LHC performed today - added coreg & restarted lisinopril NSTEMI Type 2 vs Type 1 likely 2/2 dehydration w/ severe CAD Pt endorsing chest pain and diaphoresis with noted hypotension while hiking. EKG showing Type 1 AV block and LBBB, Trops elevated at 406 followed by 590 at [facility]. Last cath 2018 w/ RAY to LCx. EF 55%. Home GDMT as below. - Initial hs-troponin @[facility]: 1025 -> 1593 -> 1398 - Heparin: on infusion 12u/kg/hr - ASA: s/p aspirin load with [id number], continue aspirin 81mg daily - Antiplatelet: Plavix 75mg daily - Nitroglycerin sublingual as needed - Beta blockade: Coreg 6.125mg BID PO - ACEi / ARB / Entresto: lisinopril 5mg daily - Statin: Atorvastatin 80mg daily - ICD / ENTERPRISE ARCHITECT: None - Left heart cath: previously performed in 2018. LHC performed today 02/01 (obstructive CAD, no stents, patent 3/3 bypass grafts) - Maintain O2 sats >90, monitor on tele 2nd Degree Type 2 AV Block, Wenckebach Noted to be flipping between Wenckebach and 1st degree AV block on telemetry. Evidenced in EKGs. No symptoms during switch but possible etiology of syncope every 3 months of so. 5-6 total syncope episodes, possibly related to heart block. Pt says episodes usually occur in warm environments w/ exertion. Has premonition of losing consciousness then does so a few seconds later, possibly vasodepressor syncope instead. - continue to monitor on tele - possibly discharge on event monitor Coronary Artery Disease s/p CABG 2001, PCI 2017 RAY/EES to prox LCx, PCI 2018 RAY/ZES to prox LCx Obstructive. Last cath 2018 at [facility] showing moderate diffuse disease w/ RAY to LCx x2 as noted above. Prior CABG in 2001. EF 55%. Home GDMT as below. - ASA - 81mg - Statin: atorvastatin 80mg daily - Antiplatelet: Plavix 75mg daily LBBB, First Degree AV Block No prior EKGs for comparison. Reported 1st degree AV block in 2018. Unclear if baseline or new onset LBBB. - Repeat EKG - Electrolyte goal Mag>2.0; K>4.0 Left Lower Extremity Weakness, Resolved Reported left lower extremity weakness, extremity strength and and sensation bilaterally equal. No noted deficits on examination. - Neurochecks q4hrs - Consider neuro consult if needed or concern for deficits increases Chronic Medical Problems: Lower extremity neuropathy: continue gabapentin 300mg TID, duloxetine 30mg daily Chronic pain: percocets q6hrs PRN, cyclobenzaprine 5mg at bedtime PRN Allergies: jessica 180mg daily as needed T2DM: home regimen with lantus 50u BID, lispro 20u with meals - lantus 40u at bedtime as NPO at midnight - SSI with 1:6 carb ratio, correction factor 1:25 for glucose>150 Hx of TIA: no residual deficits HLD: continue atorvastatin 80mg at bedtime, f/u lipids HTN: continue lisinopril 5mg daily Thoracic Aortic Aneurysm: last assessed in 11/2020 unchanged, evaluate w/ TTE Occlusion of left ICA, right ICA stent: known prior total occlusion, no acute management needed DVT prophylaxis with heparin gtt 12u/kg/hr Code status is FULL CODE The above assessment and plan plan were discussed with Dr. Smith and the team on rounds. Signed, Steven Mendosa MD Ophthalmology, PGY-1 [id number] Subjective/Interval History: NAEO after transfer to ACS service. Pt states he is not feeling very well, endorsing occasional mild chest tightness and headaches. Denies CP, SOB, dizziness, lightheadedness, palpitations at this time. Objective: Vitals: 02/01/21 1345 BP: 133/72 Pulse: 71 Resp: 15 Temp: O2 Device: room air (02/01/21 1053) Gen: Patient is well-appearing and lying in bed in no acute distress Resp: CTABL, no wheezes, crackles, or rales Cardio: NRRR, normal S1/S2, no peripheral edema GI: Normal BS, soft, NTP Skin: wwp, no rashes or lesions Neuro: A&O X 4, moves all 4 extremities spontaneously, no focal deficits Psych: Mood and affect appropriate to situation Body mass index is 32.27 kg/m . Data Review: WBC/Hgb/Hct/Plts: 6.90/15.1/44.0/132 (02/01 250) Na/K+/Phos/Mg/Ca: 137/3.6/--/1.8/8.7 (01/31 1959-02/01 249) Bun/Creat/Cl/CO2/Glucose: 17/1.12/104/25/250 (02/01 249-02/02 620) Ptt/Pt/Inr: 100.6/14.3/1.1 (01/31 1958-02/02 904) I personally reviewed these labs and images. Associated attestation - Cheri Smith MD - 02/01/2021 3:55 PM EDT I have personally seen and examined the patient independently and with the HR3 Team. I agree with the assessment and plan above with appropriate editing of the entire note above. Patient is chest pain-free and hemodynamically stable this morning. Given his clinical presentation and known advanced coronary coronary disease we will proceed with a left heart catheterization and potential intervention if indicated. We have explained the risk versus benefits to the patient and he wishes to proceed. Anjel Smith MD Discharge Planning Patient Assessment Admission Assessment Patient Assessment Completed: Yes Anticipated discharge disposition: Home Reason for Admission: CP and NSTEMI Is the patient able to participate in the assessment?: Yes Information source: Patient, Spouse Information Source Name/Contact: Tommy Jose/[phone] Demographics Verified and Updated: Yes Has the patient been admitted to any hospital in the last 30 days?: Transferred From Outside Hospital ([facility] ED) Advanced Care Planning Has the patient completed Advance Directives?: Not Completed Referral to Social Work for Advance Care Planning? : Patient Agreeable (AD booklet provided to pt) Legal Next of Kin Does the patient have a Guardian?: No Spouse: Yes Name and Contact information: Verenice Jose/[phone] Adult Child(leigh), List All Adult Children: Yes (3 adult children) Name and Contact information: Indra Jose/[phone] Would you like to add additional adult children?: No Nearest Adult Related by Blood or Adoption: No Patient Reports No Relatives by Blood or Adoption.: No Referral to Social Work to Identify Legal Next of Kin?: No Reviewed and Updated in Demographics? : Yes Outpatient Providers Does patient have a primary care physician? : Yes When was the patient's last PCP visit?: < 30 days Does the patient follow any specialists?: Yes Reviewed and updated Care Team?: Yes Patient Care Team: Sariah Sánchez DO as PCP - General (Family Medicine) Candis Perez MD as PCP - Referring 1 (Internal Medicine) Dana Pabon as PCP - Referring 2 (Neurological Surgery) Environment/Caregivers Is the patient from a facility or nursing home?: No Patient lives with: Spouse or Partner Living Environment: Other (duplex) How many steps does the patient have to navigate to enter or inside the home? : 1 Does the patient have a first floor set-up with bed and bathroom?: Yes Patient Caregiving Responsibilities: Self Patient-identified caregiver/support network: Family Who does the patient identify as a teachable caregiver(s)?: Spouse or Partner Services Does the patient use a home health or hospice agency?: No Current with dialysis?: No Does the patient use any community programs or services?: No Does patient use DME? : glucometer Would you like to add additional DME providers?: No Does the patient use oxygen?: No Does patient use medical supplies? : glucose testing strips How does patient obtain supplies?: pharmacy Would you like to add additional medical suppliers?: No Anticipated Changes Related to Illness/Injury? : No Initial ADLs Prior to Arrival What is the patient's baseline physical functioning prior to this acute illness?: independent What is the patient's baseline cognitive functioning prior to this acute illness?: independent Is the patient's baseline functioning changed by this acute illness? : Unable to assess Concerns with patient being able to care for themselves at home? : No Are there therapy or specialists consults?: No Does the patient's home require any home modifications for discharge? : No CM to recommend therapy or other consults? : Yes Select consult type: Social Work (to assist with AD) Medication Management Does the patient have prescription insurance coverage? : Yes Is the patient on Anticoagulation? : No [facility] [address] [place] [id number] [facility] [address] [facility] [id number] Inside Sales Coordinator Does the patient or credit resolution representative express financial concerns? : No Employed?: Disabled Coping/Stress Concerns about patient s coping and stress?: No Concerns about patient s caregiver s coping and stress?: No Identified Caregiver Values and Beliefs Cultural or latter day practices that may impact discharge planning and/or medical care?: No Initial Discharge Planning Anticipated discharge disposition: Home Transportation Available for Discharge: Private Vehicle, Family or Friend Anticipated DME: none Anticipated Services at Discharge: Outpatient rehab services Patient Assessment Completed: Yes Risk of Readmission: 12 Category Reference: Low: 0% - 16% Medium Low: 17% - 32% Medium High: 33% - 48% High: 49% - 100% Expected Discharge Date: 02/03/2021 Discharge Planning Summary Pt admitted as NSTEMI. Pt [employer]ISS[employer]ER [employer] independent, driving, not working/disabled and living at home with his . Plan for pt to return home at discharge pending medical plan. Case Management Plan CM met with pt, introduced self and explained role. CM will make all necessary appointments as requested for follow up and place in [place]. CM will continue to monitor and assess for discharge planning needs. Pt is in agreement with this plan. BASILIO Mirza, RN, PCCN Clinical Gun Stock Maker - 2 Ross documented in this encounter [facility] 02-02-2021 Hospital Discharge instructions Brenda Castro MD - 02/02/2021 8:21 AM EDT Images from the original note were not included. Heart-Healthy Diet: Care Instructions Your Care Instructions A heart-healthy diet has lots of vegetables, fruits, nuts, beans, and whole grains, and is low in salt. It limits foods that are high in saturated fat, such as meats, cheeses, and fried foods. It may be hard to change your diet, but even small changes can lower your risk of heart attack and heart disease. Follow-up care is a juan part of your treatment and safety. Be sure to make and go to all appointments, and call your doctor if you are having problems. It's also a good idea to know your test results and keep a list of the medicines you take. How can you care for yourself at home? Watch your portions Use food labels to learn what the recommended servings are for the foods you eat. Eat only the number of calories you need to stay at a healthy weight. If you need to lose weight, eat fewer calories than your body valdez (through exercise and other physical activity). Eat more fruits and vegetables Eat a variety of fruit and vegetables every day. Dark green, deep orange, red, or yellow fruits and vegetables are especially good for you. Examples include spinach, carrots, peaches, and berries. Keep carrots, celery, and other veggies handy for snacks. Buy fruit that is in season and store it where you can see it so that you will be tempted to eat it. Cook dishes that have a lot of veggies in them, such as stir-fries and soups. Limit saturated fat Read food labels, and try to avoid saturated fats. They increase your risk of heart disease. Use olive or canola oil when you cook. Bake, broil, grill, or steam foods instead of frying them. Choose lean meats instead of high-fat meats such as hot dogs and sausages. Cut off all visible fat when you prepare meat. Eat fish, skinless poultry, and meat alternatives such as soy products instead of high-fat meats. Soy products, such as tofu, may be especially good for your heart. Choose low-fat or fat-free milk and dairy products. Eat foods high in fiber Eat a variety of grain products every day. Include whole-grain foods that have lots of fiber and nutrients. Examples of whole-grain foods include oats, whole wheat bread, and brown rice. Buy whole-grain breads and cereals, instead of white bread or pastries. Limit salt and sodium Limit how much salt and sodium you eat to help lower your blood pressure. Taste food before you salt it. Add only a little salt when you think you need it. With time, your taste buds will adjust to less salt. Eat fewer snack items, fast foods, and other high-salt, processed foods. Check food labels for the amount of sodium in packaged foods. Choose low-sodium versions of canned goods (such as soups, vegetables, and beans). Limit sugar Limit drinks and foods with added sugar. These include candy, desserts, and soda pop. Limit alcohol Limit alcohol to no more than 2 drinks a day for men and 1 drink a day for women. Too much alcohol can cause health problems. When should you call for help? Watch closely for changes in your health, and be sure to contact your doctor if: You would like help planning heart-healthy meals. Where can you learn more? Go to http://www.[employer].[facility].edu/ patiented. Enter V137 in the search box to learn more about 'Heart-Healthy Diet: Care Instructions.' Interested in seeing a video go to https://[employer].[facility].edu/vid eolibrary to see all video content. Current as of: June 25, 2020 Content Version: 12.9 Look[employer]. Care instructions adapted under license by your healthcare professional. If you have questions about a medical condition or this instruction, always ask your healthcare professional. [employer] disclaims any warranty or liability for your use of this information. Steven Sanchez MD - 02/02/2021 Images from the original note were not included. Mr. Jose, here are your discharge instructions as follows: As we previously discussed with the whole team, be sure to hydrate with activity, wear compression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 secondary to 1st degree AV block - ACEi / ARB / Entresto: lisinopril 5mg daily, hold for possible LHC - Statin: Atorvastatin 80mg daily - ICD / ENTERPRISE ARCHITECT: None - Left heart cath: Last LHC in 2018. 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 Evidenced in EKGs. No symptoms during switch but possible etiology of syncope every 3 months of so. - NPO for cath followed by possibly temporary pacer vs permanent pacer per EP discretion - Consider EP consult in AM Coronary Artery Disease s/p CABG 2001, PCI 2017 RAY/EES to prox LCx, PCI 2018 RAY/ZES to prox LCx Obstructive. Last cath 2018 at [facility] showing moderate diffuse disease w/ RAY to LCx x2 as noted above. Prior CABG in 2001. EF 55%. Home GDMT as below. - ASA - 81mg - Statin: atorvastatin 80mg daily - Antiplatelet: Plavix 75mg daily LBBB, First Degree AV Block No prior EKGs for comparison. Reported 1st degree AV block in 2018. Unclear if baseline or new onset LBBB. - Repeat EKG - Electrolyte goal Mag>2.0; K>4.0 Left Lower Extremity Weakness, Resolved Reported left lower extremity weakness, extremity strength and and sensation bilaterally equal. No noted deficits on examination. - Neurochecks q4hrs - Consider neuro consult if needed or concern for deficits increases Chronic Medical Problems: Lower extremity neuropathy: continue gabapentin 300mg TID, duloxetine 30mg daily Chronic pain: percocets q6hrs PRN, cyclobenzaprine 5mg at bedtime PRN Allergies: jessica 180mg daily as needed T2DM: home regimen with lantus 50u BID, lispro 20u with meals - lantus 40u at bedtime as NPO at midnight - SSI with 1:6 carb ratio, correction factor 1:25 for glucose>150 Hx of TIA: no residual deficits HLD: continue atorvastatin 80mg at bedtime, f/u lipids HTN: continue lisinopril 5mg daily Thoracic Aortic Aneurysm: last assessed in 11/2020 unchanged, evaluate w/ TTE Occlusion of left ICA, 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 Jes Benton MD Internal Medicine, PGY-2 Associated attestation - Cheri Smith MD - 02/01/2021 3:54 PM EDT I have personally seen and examined the patient independently and with the HR[facility] Team. I agree with the assessment and plan above with appropriate editing of the entire note above. The patient presents with known coronary disease, progressive angina in the setting of markedly increased myocardial oxygen demand, and clinical evidence of a non STEMI. We have recommended cardiac catheterization and the patient wishes to proceed. Further management will be contingent upon his ongoing clinical course and findings at cardiac catheterization. Anjel Smith MD documented in this encounter [facility] 01-31-2021 Emergency department Note Nursing report to David Connelly RN pt going to room 2002. Rian Paste left upper chest. Dr Akers talking with Angela at this time. Stroke network contacted. Talked with Angela. Pt hasn't taken aspirin today. dEPARTMENT of Emergency Medicine CHIEF COMPLAINT Chest Pain (chest pressure started approx 2 hours ago while hiking. pt was diaphoretic et pale with a BP 88/40 upon [facility] arrival. denies chest pressure upon arrival to [facility] Dizziness (BS 237 per [facility]. ), and Fall ( a few months ago causing coocyx, neck et back pain.) HPI Justin Jose is a 65 y.o. male who presents with chest pressure started box 2 hours ago hiking. He had to be hoisted out of the [place] because of his chest pressure and weakness he couldn't make it out on his own. He says he has had a previous stroke and he now has similar symptoms 20 a stroke before with left leg weakness. He denies any headache he still has some pain between his shoulder blades. He denies any shortness of breath fevers chills nausea vomiting REVIEW OF SYSTEMS Review of Systems Constitutional: Negative. HENT: Negative. Eyes: Negative. Respiratory: Negative. Cardiovascular: Positive for chest pain. Gastrointestinal: Negative. Endocrine: Negative. Genitourinary: Negative. Musculoskeletal: Negative. Chronic tailbone pain Allergic/Immunologic: Negative. Neurological: Positive for weakness (left leg). Hematological: Negative. Psychiatric/Behavioral: Negative. PAST MEDICAL HISTORY No past medical history on file. SURGICAL HISTORY No past surgical history on file. CURRENT MEDICATIONS No current facility-administered medications for this encounter. Current Outpatient Medications Medication Sig Dispense Refill clopidogrel 75 MG tablet Take 75 mg by mouth daily. insulin aspart protamine-insulin aspart 70/30 100 unit/mL Pen-injector Inject under the skin. ALLERGIES No Known Allergies FAMILY HISTORY No family history on file. SOCIAL HISTORY Social History Socioeconomic History Marital status: Not on file Spouse name: Not on file Number of children: Not on file Years of education: Not on file Highest education level: Not on file Occupational History Not on file Tobacco Use Smoking status: Not on file Substance and Sexual Activity Alcohol use: Not on file Drug use: Not on file Sexual activity: Not on file Other Topics Concern Not on file Social History Narrative Not on file Social Determinants of Health Financial Resource Strain: Difficulty of Paying Living Expenses: Food Insecurity: Worried About Running Out of Food in the Last Year: Ran Out of Food in the Last Year: Transportation Needs: Lack of Transportation (Medical): Lack of Transportation (Non-Medical): Physical Activity: Days of Exercise per Week: Minutes of Exercise per Session: Stress: Feeling of Stress : Social Connections: Frequency of Communication with Friends and Family: Frequency of Social Gatherings with Friends and Family: Attends Protestant Services: Active Member of Clubs or Organizations: Attends Club or Organization Meetings: Marital Status: Intimate Partner Violence: Fear of Current or Ex-Partner: Emotionally Abused: Physically Abused: Sexually Abused: PHYSICAL EXAM BP 163/84 Pulse 88 Temp 97.9 F (36.6 C) (Oral) Resp 20 Ht 1.905 m (6' 3 ) SpO2 98% Physical Exam Vitals and nursing note reviewed. Constitutional: General: He is not in acute distress. Appearance: He is well-developed and normal weight. He is not ill-appearing, toxic-appearing or diaphoretic. HENT: Head: Normocephalic and atraumatic. Eyes: Extraocular Movements: Extraocular movements intact. Pupils: Pupils are equal, round, and reactive to light. Cardiovascular: Rate and Rhythm: Normal rate and regular rhythm. Heart sounds: Normal heart sounds. Pulmonary: Effort: Pulmonary effort is normal. Breath sounds: Normal breath sounds. Abdominal: General: Bowel sounds are normal. Palpations: Abdomen is soft. Musculoskeletal: General: Normal range of motion. Cervical back: Normal range of motion and neck supple. Skin: General: Skin is warm and dry. Neurological: Mental Status: He is alert and oriented to person, place, and time. Comments: Left leg weakness Psychiatric: Mood and Affect: Mood normal. Behavior: Behavior normal. ED COURSE & MEDICAL DECISION MAKING EKG shows sinus rhythm with first-degree AV block. Rate is 90 beats per minute appear interval 230 milliseconds. QRS duration 130 milliseconds QTC was 396 and 444 millisecond respectively R axis of -57 degrees. Left axis deviation is noted right bundle-branch pattern LVH. I discussed the case with the stroke neurologist and he has asked us to get the basic workup done including a CT angiogram head neck and that he be transferred to [facility] for evaluation the MRI Results for orders placed or performed during the hospital encounter of 01/31/21 CBC, EDIF, PLATELET Result Value Ref Range WBC (WHITE BLOOD COUNT) 9.0 4.4 - 10.2 10*3/uL RBC 5.05 4.70 - 6.10 10*6/uL HEMOGLOBIN (HGB) 16.3 14.0 - 18.0 g/dL HEMATOCRIT (HCT) 46.4 40.0 - 54.0 % MEAN CELL VOLUME 91.9 82.0 - 101.0 fL Mean Cell HGB 32.3 (H) 27.0 - 31.0 pg MEAN CELL HGB CONCENTRATION 35.1 31.5 - 36.0 g/dL RBC DISTRIBUTION 12.6 11.6 - 14.4 % MEAN PLATELET VOLUME 11.2 8.2 - 11.4 fL PLATELET COUNT 128.0 (L) 130 - 400 10*3/uL NEUTROPHILS 82 (H) 39 - 75 % LYMPHOCYTES % 9 (L) 13 - 44 % MONOCYTES: 6 5 - 9 % EOSINOPHIL % 1 0 - 5 % BASOPHIL % 1 0 - 1 % NEUTROPHILS (ABSOLUTE) 7.4 (H) 2.1 - 6.5 10*3/uL LYMPHS, ABSOLUTE 0.8 (L) 0.9 - 2.5 10*3/uL MONOCYTES, ABSOLUTE 0.6 0.1 - 1.0 10*3/uL EOSINOPHILS, ABSOLUTE 0.1 0.0 - 0.4 10*3/uL BASOPHILS, ABSOLUTE 0.0 0.0 - 0.1 10*3/uL IMMATURE GRANS% 0 % IMMATURE GRANS ABSOLUTE 0.0 10*3/uL RBC, NUCLEATED 0 % RBC, NUCLEATED, ABSOLUTE 0.0 10*3/uL PR PANEL Result Value Ref Range GLUCOSE 269 (H) 70 - 110 mg/dL BUN 17 7.0 - 18.0 mg/dL CREATININE SERUM 1.53 (H) 0.7 - 1.3 mg/dL CALCIUM 8.9 8.5 - 10.1 mg/dL SODIUM 140 136 - 145 mmol/L POTASSIUM 4.5 3.5 - 5.1 mmol/L CHLORIDE 104 98 - 107 mmol/L CARBON DIOXIDE (CO2) 30.7 21.0 - 32.0 mmol/L BUN/CREA RATIO 11.1 OSMOLALITY 291 mosm/kg ANION GAP 9.8 ESTIMATED GFR, NON AMER 46 >60 ml/min ESTIMATED GFR, 56 >60 ml/min MAGNESIUM 1.9 1.8 - 2.4 mg/dL TROPONIN 406.000 (HH) 0.000 - 60.400 pg/mL PROTIME-INR Result Value Ref Range PT 11.4 (H) 9.5 - 10.6 s INR 1.2 PTT Result Value Ref Range PTT 24.2 23.0 - 30.7 s COMPREHENSIVE METABOLIC PANEL Result Value Ref Range ALBUMIN 3.8 3.4 - 5.0 g/dL BILIRUBIN, TOTAL 0.88 0.20 - 1.00 mg/dL ALKALINE PHOSPHATASE 131 (H) 46 - 116 U/L PROTEIN, TOTAL 6.6 6.4 - 8.2 g/dL ALT 116 (H) 16 - 63 U/L AST 60 (H) 15 - 37 U/L A/G Ratio 1.4 mg/dL Globulin 2.8 g/dL CT HEAD WITHOUT CONTRAST Final Result IMPRESSION: No acute intracranial abnormality Dictated Physician: Ray Welsh Dictated On: 01/31/2021 15:55 Interpreted By: Ray Welsh Transcribed By: Ray Welsh Signed By: Ray Welsh Signed On: 01/31/2021 15:56 XR CHEST PORTABLE Final Result IMPRESSION: Nonacute portable chest. Dictated Physician: Raúl Lux Dictated On: 01/31/2021 16:13 Interpreted By: Raúl Lux Transcribed By: Raúl Lux Signed By: Raúl Lux Signed On: 01/31/2021 16:15 CT ANGIO BRAIN/NECK (Results Pending) EKG 2. Shows no significant changes. Sinus rhythm with LVH first-degree AV block right bundle-branch pattern. Heart rate is 86 beats per minute appear interval 266 milliseconds QRS duration 138 milliseconds. QT interval 410 QTC 404 millisecond R axis of -56 degrees per Accepting physician is at the [facility] DX: 1. NSTEMI 2. Left Leg weakness R/O CVA Dave A Call, DO 01/31/21 1746 documented in this encounter [facility] documented as of this encounter (statuses as of 10/12/2021) [facility]05-[facility]2017 History of Past illness Narrative* Problem Noted Date Resolved Date Inferolateral NSTEMI (non-ST elevated myocardial infarction) 11/10/2016 03/01/2017 Overview: Has been more SOB on exertion. Elevated troponin I at OSH (0.56) with EKG changes from baseline (inferolateral T wave changes) most recent cath was in 2010 and demonstrated patency of the grafts, but proximal occlusion of his ho-chunk vessels After his stroke, his initial pre-rehabilitation stress test showed significant ST depression with exercise, so he was referred for pharmacologic stress test 11/04/2016, which showed mild LAD ischemia Assessment: Appears that he had an event yesterday as troponin I elevated and ECG changes. His CK-MB elevated here. Will treat as NSTEMI. Risk factors: uncontrolled diabetes (HgA1c >10) and hypertriglyceredemia S/p PCI to the LMT into ostial LCx (with post-dilation) and to the SVG:RCA today Plan ASA 81 and clopidogrel 75 (Was on this for prior CVA and CAD) Continue metoprolol 25 BID SL nitro for chest pain PRN (currently asymtpmatic) documented as of this encounter (statuses as of 10/13/2021) [facility]-2017 History of Past illness Narrative* Problem Noted Date Resolved Date Inferolateral NSTEMI (non-ST elevated myocardial infarction) 11/10/2016 03/01/2017 Overview: Has been more SOB on exertion. Elevated troponin I at OSH (0.56) with EKG changes from baseline (inferolateral T wave changes) most recent cath was in 2010 and demonstrated patency of the grafts, but proximal occlusion of his ho-chunk vessels After his stroke, his initial pre-rehabilitation stress test showed significant ST depression with exercise, so he was referred for pharmacologic stress test 11/04/2016, which showed mild LAD ischemia Assessment: Appears that he had an event yesterday as troponin I elevated and ECG changes. His CK-MB elevated here. Will treat as NSTEMI. Risk factors: uncontrolled diabetes (HgA1c >10) and hypertriglyceredemia S/p PCI to the LMT into ostial LCx (with post-dilation) and to the SVG:RCA today Plan ASA 81 and clopidogrel 75 (Was on this for prior CVA and CAD) Continue metoprolol 25 BID SL nitro for chest pain PRN (currently asymtpmatic) documented as of this encounter (statuses as of 10/13/2021) [facility]2017 History of Past illness Narrative* Problem Noted Date Resolved Date Inferolateral NSTEMI (non-ST elevated myocardial infarction) 11/10/2016 03/01/2017 Overview: Has been more SOB on exertion. Elevated troponin I at OSH (0.56) with EKG changes from baseline (inferolateral T wave changes) most recent cath was in 2010 and demonstrated patency of the grafts, but proximal occlusion of his ho-chunk vessels After his stroke, his initial pre-rehabilitation stress test showed significant ST depression with exercise, so he was referred for pharmacologic stress test 11/04/2016, which showed mild LAD ischemia Assessment: Appears that he had an event yesterday as troponin I elevated and ECG changes. His CK-MB elevated here. Will treat as NSTEMI. Risk factors: uncontrolled diabetes (HgA1c >10) and hypertriglyceredemia S/p PCI to the LMT into ostial LCx (with post-dilation) and to the SVG:RCA today Plan ASA 81 and clopidogrel 75 (Was on this for prior CVA and CAD) Continue metoprolol 25 BID SL nitro for chest pain PRN (currently asymtpmatic) documented as of this encounter (statuses as of 10/28/2021) [facility]2017 History of Past illness Narrative* Problem Noted Date Resolved Date Inferolateral NSTEMI (non-ST elevated myocardial infarction) 11/10/2016 03/01/2017 Overview: Has been more SOB on exertion. Elevated troponin I at OSH (0.56) with EKG changes from baseline (inferolateral T wave changes) most recent cath was in 2010 and demonstrated patency of the grafts, but proximal occlusion of his ho-chunk vessels After his stroke, his initial pre-rehabilitation stress test showed significant ST depression with exercise, so he was referred for pharmacologic stress test 11/04/2016, which showed mild LAD ischemia Assessment: Appears that he had an event yesterday as troponin I elevated and ECG changes. His CK-MB elevated here. Will treat as NSTEMI. Risk factors: uncontrolled diabetes (HgA1c >10) and hypertriglyceredemia S/p PCI to the LMT into ostial LCx (with post-dilation) and to the SVG:RCA today Plan ASA 81 and clopidogrel 75 (Was on this for prior CVA and CAD) Continue metoprolol 25 BID SL nitro for chest pain PRN (currently asymtpmatic) documented as of this encounter (statuses as of 10/29/2021) [facility] History of Past illness Narrative* Problem Noted Date Resolved Date Inferolateral NSTEMI (non-ST elevated myocardial infarction) 11/10/2016 03/01/2017 Overview: Has been more SOB on exertion. Elevated troponin I at OSH (0.56) with EKG changes from baseline (inferolateral T wave changes) most recent cath was in 2010 and demonstrated patency of the grafts, but proximal occlusion of his ho-chunk vessels After his stroke, his initial pre-rehabilitation stress test showed significant ST depression with exercise, so he was referred for pharmacologic stress test 11/04/2016, which showed mild LAD ischemia Assessment: Appears that he had an event yesterday as troponin I elevated and ECG changes. His CK-MB elevated here. Will treat as NSTEMI. Risk factors: uncontrolled diabetes (HgA1c >10) and hypertriglyceredemia S/p PCI to the LMT into ostial LCx (with post-dilation) and to the SVG:RCA today Plan ASA 81 and clopidogrel 75 (Was on this for prior CVA and CAD) Continue metoprolol 25 BID SL nitro for chest pain PRN (currently asymtpmatic) documented as of this encounter (statuses as of 11/10/2021) [facility]2017 History of Past illness Narrative* Problem Noted Date Resolved Date Inferolateral NSTEMI (non-ST elevated myocardial infarction) 11/10/2016 03/01/2017 Overview: Has been more SOB on exertion. Elevated troponin I at OSH (0.56) with EKG changes from baseline (inferolateral T wave changes) most recent cath was in 2010 and demonstrated patency of the grafts, but proximal occlusion of his ho-chunk vessels After his stroke, his initial pre-rehabilitation stress test showed significant ST depression with exercise, so he was referred for pharmacologic stress test 11/04/2016, which showed mild LAD ischemia Assessment: Appears that he had an event yesterday as troponin I elevated and ECG changes. His CK-MB elevated here. Will treat as NSTEMI. Risk factors: uncontrolled diabetes (HgA1c >10) and hypertriglyceredemia S/p PCI to the LMT into ostial LCx (with post-dilation) and to the SVG:RCA today Plan ASA 81 and clopidogrel 75 (Was on this for prior CVA and CAD) Continue metoprolol 25 BID SL nitro for chest pain PRN (currently asymtpmatic) documented as of this encounter (statuses as of 11/29/2021) [facility] [facility] Past illness Narrative* Problem Noted Date Resolved Date Inferolateral NSTEMI (non-ST elevated myocardial infarction) 11/10/2016 03/01/2017 Overview: Has been more SOB on exertion. Elevated troponin I at OSH (0.56) with EKG changes from baseline (inferolateral T wave changes) most recent cath was in 2010 and demonstrated patency of the grafts, but proximal occlusion of his ho-chunk vessels After his stroke, his initial pre-rehabilitation stress test showed significant ST depression with exercise, so he was referred for pharmacologic stress test 11/04/2016, which showed mild LAD ischemia Assessment: Appears that he had an event yesterday as troponin I elevated and ECG changes. His CK-MB elevated here. Will treat as NSTEMI. Risk factors: uncontrolled diabetes (HgA1c >10) and hypertriglyceredemia S/p PCI to the LMT into ostial LCx (with post-dilation) and to the SVG:RCA today Plan ASA 81 and clopidogrel 75 (Was on this for prior CVA and CAD) Continue metoprolol 25 BID SL nitro for chest pain PRN (currently asymtpmatic) documented as of this encounter (statuses as of 11/30/2021) [facility]05-04-2017 History of Past illness Narrative* Problem Noted Date Resolved Date Inferolateral NSTEMI (non-ST elevated myocardial infarction) 11/10/2016 03/01/2017 Overview: Has been more SOB on exertion. Elevated troponin I at OSH (0.56) with EKG changes from baseline (inferolateral T wave changes) most recent cath was in 2010 and demonstrated patency of the grafts, but proximal occlusion of his ho-chunk vessels After his stroke, his initial pre-rehabilitation stress test showed significant ST depression with exercise, so he was referred for pharmacologic stress test 11/04/2016, which showed mild LAD ischemia Assessment: Appears that he had an event yesterday as troponin I elevated and ECG changes. His CK-MB elevated here. Will treat as NSTEMI. Risk factors: uncontrolled diabetes (HgA1c >10) and hypertriglyceredemia S/p PCI to the LMT into ostial LCx (with post-dilation) and to the SVG:RCA today Plan ASA 81 and clopidogrel 75 (Was on this for prior CVA and CAD) Continue metoprolol 25 BID SL nitro for chest pain PRN (currently asymtpmatic) documented as of this encounter (statuses as of 12/14/2021) [facility]05-04-2017 History of Past illness Narrative* Problem Noted Date Resolved Date Inferolateral NSTEMI (non-ST elevated myocardial infarction) 11/10/2016 03/01/2017 Overview: Has been more SOB on exertion. Elevated troponin I at OSH (0.56) with EKG changes from baseline (inferolateral T wave changes) most recent cath was in 2010 and demonstrated patency of the grafts, but proximal occlusion of his ho-chunk vessels After his stroke, his initial pre-rehabilitation stress test showed significant ST depression with exercise, so he was referred for pharmacologic stress test 11/04/2016, which showed mild LAD ischemia Assessment: Appears that he had an event yesterday as troponin I elevated and ECG changes. His CK-MB elevated here. Will treat as NSTEMI. Risk factors: uncontrolled diabetes (HgA1c >10) and hypertriglyceredemia S/p PCI to the LMT into ostial LCx (with post-dilation) and to the SVG:RCA today Plan ASA 81 and clopidogrel 75 (Was on this for prior CVA and CAD) Continue metoprolol 25 BID SL nitro for chest pain PRN (currently asymtpmatic) documented as of this encounter (statuses as of 12/14/2021) [facility]05-04-2017 History of Past illness Narrative* Problem Noted Date Resolved Date Inferolateral NSTEMI (non-ST elevated myocardial infarction) 11/10/2016 03/01/2017 Overview: Has been more SOB on exertion. Elevated troponin I at OSH (0.56) with EKG changes from baseline (inferolateral T wave changes) most recent cath was in 2010 and demonstrated patency of the grafts, but proximal occlusion of his ho-chunk vessels After his stroke, his initial pre-rehabilitation stress test showed significant ST depression with exercise, so he was referred for pharmacologic stress test 11/04/2016, which showed mild LAD ischemia Assessment: Appears that he had an event yesterday as troponin I elevated and ECG changes. His CK-MB elevated here. Will treat as NSTEMI. Risk factors: uncontrolled diabetes (HgA1c >10) and hypertriglyceredemia S/p PCI to the LMT into ostial LCx (with post-dilation) and to the SVG:RCA today Plan ASA 81 and clopidogrel 75 (Was on this for prior CVA and CAD) Continue metoprolol 25 BID SL nitro for chest pain PRN (currently asymtpmatic) documented as of this encounter (statuses as of 12/15/2021) [facility]05-04-2017 History of Past illness Narrative* Problem Noted Date Resolved Date Inferolateral NSTEMI (non-ST elevated myocardial infarction) 11/10/2016 03/01/2017 Overview: Has been more SOB on exertion. Elevated troponin I at OSH (0.56) with EKG changes from baseline (inferolateral T wave changes) most recent cath was in 2010 and demonstrated patency of the grafts, but proximal occlusion of his ho-chunk vessels After his stroke, his initial pre-rehabilitation stress test showed significant ST depression with exercise, so he was referred for pharmacologic stress test 11/04/2016, which showed mild LAD ischemia Assessment: Appears that he had an event yesterday as troponin I elevated and ECG changes. His CK-MB elevated here. Will treat as NSTEMI. Risk factors: uncontrolled diabetes (HgA1c >10) and hypertriglyceredemia S/p PCI to the LMT into ostial LCx (with post-dilation) and to the SVG:RCA today Plan ASA 81 and clopidogrel 75 (Was on this for prior CVA and CAD) Continue metoprolol 25 BID SL nitro for chest pain PRN (currently asymtpmatic) documented as of this encounter (statuses as of 01/04/2022) [facility]05-04-2017 History of Past illness Narrative* Problem Noted Date Resolved Date Inferolateral NSTEMI (non-ST elevated myocardial infarction) 11/10/2016 03/01/2017 Overview: Has been more SOB on exertion. Elevated troponin I at OSH (0.56) with EKG changes from baseline (inferolateral T wave changes) most recent cath was in 2010 and demonstrated patency of the grafts, but proximal occlusion of his ho-chunk vessels After his stroke, his initial pre-rehabilitation stress test showed significant ST depression with exercise, so he was referred for pharmacologic stress test 11/04/2016, which showed mild LAD ischemia Assessment: Appears that he had an event yesterday as troponin I elevated and ECG changes. His CK-MB elevated here. Will treat as NSTEMI. Risk factors: uncontrolled diabetes (HgA1c >10) and hypertriglyceredemia S/p PCI to the LMT into ostial LCx (with post-dilation) and to the SVG:RCA today Plan ASA 81 and clopidogrel 75 (Was on this for prior CVA and CAD) Continue metoprolol 25 BID SL nitro for chest pain PRN (currently asymtpmatic) documented as of this encounter (statuses as of 01/05/2022) [facility]05-04-2017 History of Past illness Narrative* Problem Noted Date Resolved Date Inferolateral NSTEMI (non-ST elevated myocardial infarction) 11/10/2016 03/01/2017 Overview: Has been more SOB on exertion. Elevated troponin I at OSH (0.56) with EKG changes from baseline (inferolateral T wave changes) most recent cath was in 2010 and demonstrated patency of the grafts, but proximal occlusion of his ho-chunk vessels After his stroke, his initial pre-rehabilitation stress test showed significant ST depression with exercise, so he was referred for pharmacologic stress test 11/04/2016, which showed mild LAD ischemia Assessment: Appears that he had an event yesterday as troponin I elevated and ECG changes. His CK-MB elevated here. Will treat as NSTEMI. Risk factors: uncontrolled diabetes (HgA1c >10) and hypertriglyceredemia S/p PCI to the LMT into ostial LCx (with post-dilation) and to the SVG:RCA today Plan ASA 81 and clopidogrel 75 (Was on this for prior CVA and CAD) Continue metoprolol 25 BID SL nitro for chest pain PRN (currently asymtpmatic) documented as of this encounter (statuses as of 01/06/2022) [facility]05-04-2017 History of Past illness Narrative* Problem Noted Date Resolved Date Inferolateral NSTEMI (non-ST elevated myocardial infarction) 11/10/2016 03/01/2017 Overview: Has been more SOB on exertion. Elevated troponin I at OSH (0.56) with EKG changes from baseline (inferolateral T wave changes) most recent cath was in 2010 and demonstrated patency of the grafts, but proximal occlusion of his ho-chunk vessels After his stroke, his initial pre-rehabilitation stress test showed significant ST depression with exercise, so he was referred for pharmacologic stress test 11/04/2016, which showed mild LAD ischemia Assessment: Appears that he had an event yesterday as troponin I elevated and ECG changes. His CK-MB elevated here. Will treat as NSTEMI. Risk factors: uncontrolled diabetes (HgA1c >10) and hypertriglyceredemia S/p PCI to the LMT into ostial LCx (with post-dilation) and to the SVG:RCA today Plan ASA 81 and clopidogrel 75 (Was on this for prior CVA and CAD) Continue metoprolol 25 BID SL nitro for chest pain PRN (currently asymtpmatic) documented as of this encounter (statuses as of 01/07/2022) [facility]05-04-2017 History of Past illness Narrative* Problem Noted Date Resolved Date Inferolateral NSTEMI (non-ST elevated myocardial infarction) 11/10/2016 03/01/2017 Overview: Has been more SOB on exertion. Elevated troponin I at OSH (0.56) with EKG changes from baseline (inferolateral T wave changes) most recent cath was in 2010 and demonstrated patency of the grafts, but proximal occlusion of his ho-chunk vessels After his stroke, his initial pre-rehabilitation stress test showed significant ST depression with exercise, so he was referred for pharmacologic stress test 11/04/2016, which showed mild LAD ischemia Assessment: Appears that he had an event yesterday as troponin I elevated and ECG changes. His CK-MB elevated here. Will treat as NSTEMI. Risk factors: uncontrolled diabetes (HgA1c >10) and hypertriglyceredemia S/p PCI to the LMT into ostial LCx (with post-dilation) and to the SVG:RCA today Plan ASA 81 and clopidogrel 75 (Was on this for prior CVA and CAD) Continue metoprolol 25 BID SL nitro for chest pain PRN (currently asymtpmatic) documented as of this encounter (statuses as of 01/20/2022) [facility]05-04-2017 History of Past illness Narrative* Problem Noted Date Resolved Date Inferolateral NSTEMI (non-ST elevated myocardial infarction) 11/10/2016 03/01/2017 Overview: Has been more SOB on exertion. Elevated troponin I at OSH (0.56) with EKG changes from baseline (inferolateral T wave changes) most recent cath was in 2010 and demonstrated patency of the grafts, but proximal occlusion of his ho-chunk vessels After his stroke, his initial pre-rehabilitation stress test showed significant ST depression with exercise, so he was referred for pharmacologic stress test 11/04/2016, which showed mild LAD ischemia Assessment: Appears that he had an event yesterday as troponin I elevated and ECG changes. His CK-MB elevated here. Will treat as NSTEMI. Risk factors: uncontrolled diabetes (HgA1c >10) and hypertriglyceredemia S/p PCI to the LMT into ostial LCx (with post-dilation) and to the SVG:RCA today Plan ASA 81 and clopidogrel 75 (Was on this for prior CVA and CAD) Continue metoprolol 25 BID SL nitro for chest pain PRN (currently asymtpmatic) documented as of this encounter (statuses as of 01/26/2022) [facility]05-04-2017 History of Past illness Narrative* Problem Noted Date Resolved Date Inferolateral NSTEMI (non-ST elevated myocardial infarction) 11/10/2016 03/01/2017 Overview: Has been more SOB on exertion. Elevated troponin I at OSH (0.56) with EKG changes from baseline (inferolateral T wave changes) most recent cath was in 2010 and demonstrated patency of the grafts, but proximal occlusion of his ho-chunk vessels After his stroke, his initial pre-rehabilitation stress test showed significant ST depression with exercise, so he was referred for pharmacologic stress test 11/04/2016, which showed mild LAD ischemia Assessment: Appears that he had an event yesterday as troponin I elevated and ECG changes. His CK-MB elevated here. Will treat as NSTEMI. Risk factors: uncontrolled diabetes (HgA1c >10) and hypertriglyceredemia S/p PCI to the LMT into ostial LCx (with post-dilation) and to the SVG:RCA today Plan ASA 81 and clopidogrel 75 (Was on this for prior CVA and CAD) Continue metoprolol 25 BID SL nitro for chest pain PRN (currently asymtpmatic) documented as of this encounter (statuses as of 02/11/2022) [facility]05-04-2017 History of Past illness Narrative* Problem Noted Date Resolved Date Inferolateral NSTEMI (non-ST elevated myocardial infarction) 11/10/2016 03/01/2017 Overview: Has been more SOB on exertion. Elevated troponin I at OSH (0.56) with EKG changes from baseline (inferolateral T wave changes) most recent cath was in 2010 and demonstrated patency of the grafts, but proximal occlusion of his ho-chunk vessels After his stroke, his initial pre-rehabilitation stress test showed significant ST depression with exercise, so he was referred for pharmacologic stress test 11/04/2016, which showed mild LAD ischemia Assessment: Appears that he had an event yesterday as troponin I elevated and ECG changes. His CK-MB elevated here. Will treat as NSTEMI. Risk factors: uncontrolled diabetes (HgA1c >10) and hypertriglyceredemia S/p PCI to the LMT into ostial LCx (with post-dilation) and to the SVG:RCA today Plan ASA 81 and clopidogrel 75 (Was on this for prior CVA and CAD) Continue metoprolol 25 BID SL nitro for chest pain PRN (currently asymtpmatic) documented as of this encounter (statuses as of 05/19/2022) [facility]05-04-2017 History of Past illness Narrative* Problem Noted Date Resolved Date Inferolateral NSTEMI (non-ST elevated myocardial infarction) 11/10/2016 03/01/2017 Overview: Has been more SOB on exertion. Elevated troponin I at OSH (0.56) with EKG changes from baseline (inferolateral T wave changes) most recent cath was in 2010 and demonstrated patency of the grafts, but proximal occlusion of his ho-chunk vessels After his stroke, his initial pre-rehabilitation stress test showed significant ST depression with exercise, so he was referred for pharmacologic stress test 11/04/2016, which showed mild LAD ischemia Assessment: Appears that he had an event yesterday as troponin I elevated and ECG changes. His CK-MB elevated here. Will treat as NSTEMI. Risk factors: uncontrolled diabetes (HgA1c >10) and hypertriglyceredemia S/p PCI to the LMT into ostial LCx (with post-dilation) and to the SVG:RCA today Plan ASA 81 and clopidogrel 75 (Was on this for prior CVA and CAD) Continue metoprolol 25 BID SL nitro for chest pain PRN (currently asymtpmatic) documented as of this encounter (statuses as of 09/29/2022) [facility]05-04-2017 History of Past illness Narrative* Problem Noted Date Diagnosed Date Resolved Date Inferolateral NSTEMI (non-ST elevated myocardial infarction) 11/10/2016 03/01/2017 Overview: Has been more SOB on exertion. Elevated troponin I at OSH (0.56) with EKG changes from baseline (inferolateral T wave changes) most recent cath was in 2010 and demonstrated patency of the grafts, but proximal occlusion of his ho-chunk vessels After his stroke, his initial pre-rehabilitation stress test showed significant ST depression with exercise, so he was referred for pharmacologic stress test 11/04/2016, which showed mild LAD ischemia Assessment: Appears that he had an event yesterday as troponin I elevated and ECG changes. His CK-MB elevated here. Will treat as NSTEMI. Risk factors: uncontrolled diabetes (HgA1c >10) and hypertriglyceredemia S/p PCI to the LMT into ostial LCx (with post-dilation) and to the SVG:RCA today Plan ASA 81 and clopidogrel 75 (Was on this for prior CVA and CAD) Continue metoprolol 25 BID SL nitro for chest pain PRN (currently asymtpmatic) documented as of this encounter (statuses as of 02/09/2023) [facility]05-04-2017 History of Past illness Narrative* Problem Noted Date Diagnosed Date Resolved Date Inferolateral NSTEMI (non-ST elevated myocardial infarction) 11/10/2016 03/01/2017 Overview: Has been more SOB on exertion. Elevated troponin I at OSH (0.56) with EKG changes from baseline (inferolateral T wave changes) most recent cath was in 2010 and demonstrated patency of the grafts, but proximal occlusion of his ho-chunk vessels After his stroke, his initial pre-rehabilitation stress test showed significant ST depression with exercise, so he was referred for pharmacologic stress test 11/04/2016, which showed mild LAD ischemia Assessment: Appears that he had an event yesterday as troponin I elevated and ECG changes. His CK-MB elevated here. Will treat as NSTEMI. Risk factors: uncontrolled diabetes (HgA1c >10) and hypertriglyceredemia S/p PCI to the LMT into ostial LCx (with post-dilation) and to the SVG:RCA today Plan ASA 81 and clopidogrel 75 (Was on this for prior CVA and CAD) Continue metoprolol 25 BID SL nitro for chest pain PRN (currently asymtpmatic) documented as of this encounter (statuses as of 02/09/2023) [facility]05-04-2017 History of Past illness Narrative* Problem Noted Date Diagnosed Date Resolved Date Inferolateral NSTEMI (non-ST elevated myocardial infarction) 11/10/2016 03/01/2017 Overview: Has been more SOB on exertion. Elevated troponin I at OSH (0.56) with EKG changes from baseline (inferolateral T wave changes) most recent cath was in 2010 and demonstrated patency of the grafts, but proximal occlusion of his ho-chunk vessels After his stroke, his initial pre-rehabilitation stress test showed significant ST depression with exercise, so he was referred for pharmacologic stress test 11/04/2016, which showed mild LAD ischemia Assessment: Appears that he had an event yesterday as troponin I elevated and ECG changes. His CK-MB elevated here. Will treat as NSTEMI. Risk factors: uncontrolled diabetes (HgA1c >10) and hypertriglyceredemia S/p PCI to the LMT into ostial LCx (with post-dilation) and to the SVG:RCA today Plan ASA 81 and clopidogrel 75 (Was on this for prior CVA and CAD) Continue metoprolol 25 BID SL nitro for chest pain PRN (currently asymtpmatic) documented as of this encounter (statuses as of 02/21/2023) [facility]05-04-2017 History of Past illness Narrative* Problem Noted Date Diagnosed Date Resolved Date Inferolateral NSTEMI (non-ST elevated myocardial infarction) 11/10/2016 03/01/2017 Overview: Has been more SOB on exertion. Elevated troponin I at OSH (0.56) with EKG changes from baseline (inferolateral T wave changes) most recent cath was in 2010 and demonstrated patency of the grafts, but proximal occlusion of his ho-chunk vessels After his stroke, his initial pre-rehabilitation stress test showed significant ST depression with exercise, so he was referred for pharmacologic stress test 11/04/2016, which showed mild LAD ischemia Assessment: Appears that he had an event yesterday as troponin I elevated and ECG changes. His CK-MB elevated here. Will treat as NSTEMI. Risk factors: uncontrolled diabetes (HgA1c >10) and hypertriglyceredemia S/p PCI to the LMT into ostial LCx (with post-dilation) and to the SVG:RCA today Plan ASA 81 and clopidogrel 75 (Was on this for prior CVA and CAD) Continue metoprolol 25 BID SL nitro for chest pain PRN (currently asymtpmatic) documented as of this encounter (statuses as of 02/24/2023) [facility]05-04-2017 History of Past illness Narrative* Problem Noted Date Diagnosed Date Resolved Date Inferolateral NSTEMI (non-ST elevated myocardial infarction) 11/10/2016 03/01/2017 Overview: Has been more SOB on exertion. Elevated troponin I at OSH (0.56) with EKG changes from baseline (inferolateral T wave changes) most recent cath was in 2010 and demonstrated patency of the grafts, but proximal occlusion of his ho-chunk vessels After his stroke, his initial pre-rehabilitation stress test showed significant ST depression with exercise, so he was referred for pharmacologic stress test 11/04/2016, which showed mild LAD ischemia Assessment: Appears that he had an event yesterday as troponin I elevated and ECG changes. His CK-MB elevated here. Will treat as NSTEMI. Risk factors: uncontrolled diabetes (HgA1c >10) and hypertriglyceredemia S/p PCI to the LMT into ostial LCx (with post-dilation) and to the SVG:RCA today Plan ASA 81 and clopidogrel 75 (Was on this for prior CVA and CAD) Continue metoprolol 25 BID SL nitro for chest pain PRN (currently asymtpmatic) documented as of this encounter (statuses as of 03/07/2023) [facility]05-04[facility]2017 History of Past illness Narrative* Problem Noted Date Diagnosed Date Resolved Date Inferolateral NSTEMI (non-ST elevated myocardial infarction) 11/10/2016 03/01/2017 Overview: Has been more SOB on exertion. Elevated troponin I at OSH (0.56) with EKG changes from baseline (inferolateral T wave changes) most recent cath was in 2010 and demonstrated patency of the grafts, but proximal occlusion of his ho-chunk vessels After his stroke, his initial pre-rehabilitation stress test showed significant ST depression with exercise, so he was referred for pharmacologic stress test 11/04/2016, which showed mild LAD ischemia Assessment: Appears that he had an event yesterday as troponin I elevated and ECG changes. His CK-MB elevated here. Will treat as NSTEMI. Risk factors: uncontrolled diabetes (HgA1c >10) and hypertriglyceredemia S/p PCI to the LMT into ostial LCx (with post-dilation) and to the SVG:RCA today Plan ASA 81 and clopidogrel 75 (Was on this for prior CVA and CAD) Continue metoprolol 25 BID SL nitro for chest pain PRN (currently asymtpmatic) documented as of this encounter (statuses as of 2023) [facility]05-04[facility]2017 History of Past illness Narrative* Problem Noted Date Diagnosed Date Resolved Date Inferolateral NSTEMI (non-ST elevated myocardial infarction) 11/10/2016 03/01/2017 Overview: Has been more SOB on exertion. Elevated troponin I at OSH (0.56) with EKG changes from baseline (inferolateral T wave changes) most recent cath was in 2010 and demonstrated patency of the grafts, but proximal occlusion of his ho-chunk vessels After his stroke, his initial pre-rehabilitation stress test showed significant ST depression with exercise, so he was referred for pharmacologic stress test 11/04/2016, which showed mild LAD ischemia Assessment: Appears that he had an event yesterday as troponin I elevated and ECG changes. His CK-MB elevated here. Will treat as NSTEMI. Risk factors: uncontrolled diabetes (HgA1c >10) and hypertriglyceredemia S/p PCI to the LMT into ostial LCx (with post-dilation) and to the SVG:RCA today Plan ASA 81 and clopidogrel 75 (Was on this for prior CVA and CAD) Continue metoprolol 25 BID SL nitro for chest pain PRN (currently asymtpmatic) documented as of this encounter (statuses as of 05/01/2023) [facility]2017 History of Past illness Narrative* Problem Noted Date Diagnosed Date Resolved Date Inferolateral NSTEMI (non-ST elevated myocardial infarction) 11/10/2016 03/01/2017 Overview: Has been more SOB on exertion. Elevated troponin I at OSH (0.56) with EKG changes from baseline (inferolateral T wave changes) most recent cath was in 2010 and demonstrated patency of the grafts, but proximal occlusion of his ho-chunk vessels After his stroke, his initial pre-rehabilitation stress test showed significant ST depression with exercise, so he was referred for pharmacologic stress test 11/04/2016, which showed mild LAD ischemia Assessment: Appears that he had an event yesterday as troponin I elevated and ECG changes. His CK-MB elevated here. Will treat as NSTEMI. Risk factors: uncontrolled diabetes (HgA1c >10) and hypertriglyceredemia S/p PCI to the LMT into ostial LCx (with post-dilation) and to the SVG:RCA today Plan ASA 81 and clopidogrel 75 (Was on this for prior CVA and CAD) Continue metoprolol 25 BID SL nitro for chest pain PRN (currently asymtpmatic) documented as of this encounter (statuses as of 05/30/2023) [facility]2017 History of Past illness Narrative* Problem Noted Date Diagnosed Date Resolved Date Inferolateral NSTEMI (non-ST elevated myocardial infarction) 11/10/2016 03/01/2017 Overview: Has been more SOB on exertion. Elevated troponin I at OSH (0.56) with EKG changes from baseline (inferolateral T wave changes) most recent cath was in 2010 and demonstrated patency of the grafts, but proximal occlusion of his ho-chunk vessels After his stroke, his initial pre-rehabilitation stress test showed significant ST depression with exercise, so he was referred for pharmacologic stress test 11/04/2016, which showed mild LAD ischemia Assessment: Appears that he had an event yesterday as troponin I elevated and ECG changes. His CK-MB elevated here. Will treat as NSTEMI. Risk factors: uncontrolled diabetes (HgA1c >10) and hypertriglyceredemia S/p PCI to the LMT into ostial LCx (with post-dilation) and to the SVG:RCA today Plan ASA 81 and clopidogrel 75 (Was on this for prior CVA and CAD) Continue metoprolol 25 BID SL nitro for chest pain PRN (currently asymtpmatic) documented as of this encounter (statuses as of 06/07/2023) [facility] History of Past illness Narrative* Problem Noted Date Diagnosed Date Resolved Date Inferolateral NSTEMI (non-ST elevated myocardial infarction) 11/10/2016 03/01/2017 Overview: Has been more SOB on exertion. Elevated troponin I at OSH (0.56) with EKG changes from baseline (inferolateral T wave changes) most recent cath was in 2010 and demonstrated patency of the grafts, but proximal occlusion of his ho-chunk vessels After his stroke, his initial pre-rehabilitation stress test showed significant ST depression with exercise, so he was referred for pharmacologic stress test 11/04/2016, which showed mild LAD ischemia Assessment: Appears that he had an event yesterday as troponin I elevated and ECG changes. His CK-MB elevated here. Will treat as NSTEMI. Risk factors: uncontrolled diabetes (HgA1c >10) and hypertriglyceredemia S/p PCI to the LMT into ostial LCx (with post-dilation) and to the SVG:RCA today Plan ASA 81 and clopidogrel 75 (Was on this for prior CVA and CAD) Continue metoprolol 25 BID SL nitro for chest pain PRN (currently asymtpmatic) documented as of this encounter (statuses as of 08/10/2023) [facility] History of Past illness Narrative* Problem Noted Date Diagnosed Date Resolved Date Inferolateral NSTEMI (non-ST elevated myocardial infarction) 11/10/2016 03/01/2017 Overview: Has been more SOB on exertion. Elevated troponin I at OSH (0.56) with EKG changes from baseline (inferolateral T wave changes) most recent cath was in 2010 and demonstrated patency of the grafts, but proximal occlusion of his ho-chunk vessels After his stroke, his initial pre-rehabilitation stress test showed significant ST depression with exercise, so he was referred for pharmacologic stress test 11/04/2016, which showed mild LAD ischemia Assessment: Appears that he had an event yesterday as troponin I elevated and ECG changes. His CK-MB elevated here. Will treat as NSTEMI. Risk factors: uncontrolled diabetes (HgA1c >10) and hypertriglyceredemia S/p PCI to the LMT into ostial LCx (with post-dilation) and to the SVG:RCA today Plan ASA 81 and clopidogrel 75 (Was on this for prior CVA and CAD) Continue metoprolol 25 BID SL nitro for chest pain PRN (currently asymtpmatic) documented as of this encounter (statuses as of 08/31/2023) [facility] No data available for this section [facility] Evaluation note* Diagnosis Non-STEMI (non-ST elevated myocardial infarction)- Primary Acute myocardial infarction, subendocardial infarction, episode of care unspecified [facility] this [facility] Diagnosis NSTEMI (non-ST elevated myocardial infarction) Acute myocardial infarction, subendocardial infarction, episode of care unspecified Coronary artery disease, angina presence unspecified, unspecified vessel or lesion type, unspecified whether ho-chunk or transplanted heart Obesity: body mass index of 30.0-34.9 Obesity, unspecified Diabetes NSTEMI (non-ST elevated myocardial infarction) Acute myocardial infarction, subendocardial infarction, episode of care unspecified [facility] Occlusion and stenosis of right vertebral artery- Primary Occlusion and stenosis of vertebral artery without mention of cerebral infarction [facility] 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 Calculus of gallbladder with acute on chronic cholecystitis with obstruction [facility] Diagnosis Occlusion and stenosis of left vertebral artery- Primary Occlusion and stenosis of vertebral artery without mention of cerebral infarction Cerebral infarction due to occlusion of left carotid artery (HCC) [facility] Diagnosis Occlusion and stenosis of right vertebral artery Occlusion and stenosis of vertebral artery without mention of cerebral infarction [facility] Diagnosis Cerebral infarction due to occlusion of left carotid artery (HCC) Occlusion and stenosis of left vertebral artery Occlusion and stenosis of vertebral artery without mention of cerebral infarction [facility] Diagnosis Cerebral infarction due to occlusion of left carotid artery (HCC)- Primary Vertebral artery stenosis, bilateral Stenosis of right carotid artery Occlusion and stenosis of carotid artery without mention of cerebral infarction Left carotid artery occlusion Occlusion and stenosis of carotid artery without mention of cerebral infarction Type 2 diabetes mellitus with diabetic polyneuropathy, with long-term current use of insulin (HCC) [facility] Diagnosis Cerebral infarction due to occlusion of left carotid artery (HCC)- Primary Vertebral artery stenosis, bilateral Stenosis of right carotid artery Occlusion and stenosis of carotid artery without mention of cerebral infarction [facility]* Diagnosis Coronary artery disease involving ho-chunk coronary artery of ho-chunk heart without angina pectoris- Primary S/P CABG (coronary artery bypass graft) Postsurgical aortocoronary bypass status Essential hypertension Unspecified essential hypertension Mixed hyperlipidemia [facility] Diagnosis Open wound of finger, initial encounter- Primary [facility] Diagnosis Vertebral artery stenosis, bilateral- Primary Hyperlipidemia, unspecified hyperlipidemia type Stenosis of right carotid artery Occlusion and stenosis of carotid artery without mention of cerebral infarction Hypertension, unspecified type Occlusion of left carotid artery Occlusion and stenosis of carotid artery without mention of cerebral infarction Orthostatic dizziness Type 2 diabetes mellitus with diabetic polyneuropathy, with long-term current use of insulin (HCC) Left hemiparesis (HCC) Hemiplegia, unspecified, affecting unspecified side [facility] Diagnosis Carotid stenosis, right- Primary Occlusion and stenosis of carotid artery without mention of cerebral infarction Occlusion of left carotid artery Occlusion and stenosis of carotid artery without mention of cerebral infarction Vertebral artery stenosis, bilateral [facility] Diagnosis Coronary artery disease involving coronary bypass graft of ho-chunk heart without angina pectoris- Primary [facility] [place] [facility] Diagnosis 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 Aneurysm of ascending aorta without rupture (HCC) Essential hypertension Unspecified essential hypertension Mixed hyperlipidemia Infrarenal abdominal aortic aneurysm (AAA) without rupture (HCC) Bilateral carotid artery stenosis Occlusion and stenosis of carotid artery without mention of cerebral infarction Left carotid artery occlusion Occlusion and stenosis of carotid artery without mention of cerebral infarction [facility] Diagnosis Spinal stenosis of lumbar region with neurogenic claudication- Primary Spinal stenosis, lumbar region, with neurogenic claudication Left leg weakness Other musculoskeletal symptoms referable to limbs History of ischemic right MCA stroke [Z86.73] Transient ischemic attack (TIA), and cerebral infarction without residual deficits 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] [facility] Diagnosis Spinal stenosis of lumbar region with neurogenic claudication Spinal stenosis, lumbar region, with neurogenic claudication Left leg weakness Other musculoskeletal symptoms referable to limbs [facility] Diagnosis Lumbar radiculopathy- Primary Thoracic or lumbosacral neuritis or radiculitis, unspecified Spinal stenosis of lumbar region with neurogenic claudication Spinal stenosis, lumbar region, with neurogenic claudication [facility] Diagnosis 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 Peripheral arterial disease (HCC) Peripheral vascular disease, unspecified Aneurysm of ascending aorta without rupture (HCC) Infrarenal abdominal aortic aneurysm (AAA) without rupture (HCC) Bilateral carotid artery stenosis Occlusion and stenosis of carotid artery without mention of cerebral infarction Left carotid artery occlusion Occlusion and stenosis of carotid artery without mention of cerebral infarction Essential hypertension Unspecified essential hypertension Orthostatic hypotension Mixed hyperlipidemia [facility] Diagnostic Procedure Only (Routine) - Pending Review Specialty Diagnoses / Procedures Referred By Bill t Referred To Contact US IMAGING Diagnoses Occlusion and stenosis of right vertebral artery Procedures US TCD POSTERIOR CIRC TRANSCRANIAL DOPPLER STDY INTRACRANIAL ART ANDITD Dana Pabon APRN.BROADCAST MAINTENANCE ENGINEER [address] [facility] [place] [address] Us Imaging Referral ID Status Reason Start Date Expiration Date Visits Requested Visits Authorized [id number] Pending Review Auto-Generat ed Referral 10/12/2021 11/11/2022 1 1 [facility] for referral (narrative)* Diagnostic Procedure Only (Routine) - Closed Specialty Diagnoses / Procedures Referred By Contac t Referred To Contact US IMAGING Diagnoses Occlusion and stenosis of right vertebral artery Procedures US TCD POSTERIOR CIRC TRANSCRANIAL DOPPLER STDY INTRACRANIAL ART LMTDana Shultz APRN.BROADCAST MAINTENANCE ENGINEER [address] [facility] [place] [address] Us Imaging Referral ID Status Reason Start Date Expiration Date V isits Requested Visits Authorized [id number] Closed Auto-Generate d Referral 10/12/2021 11/11/2022 1 1 [facility] for referral (narrative)* Diagnostic Procedure Only (Routine) - Pending Review Specialty Diagnoses / Procedures Referred By Contac t Referred To Contact US IMAGING Diagnoses Cerebral infarction due to occlusion of left carotid artery (HCC) Vertebral artery stenosis, bilateral Stenosis of right carotid artery Procedures US TCD POSTERIOR CIRC TRANSCRANIAL DOPPLER STDY INTRACRANIAL ART LMTD Alvarado Russo APRN.BROADCAST MAINTENANCE ENGINEER [address] [facility] [place] [address] Us Imaging Referral ID Status Reason Start Date Expiration Date Visits Requested Visits Authorized [id number] Pending Review Auto-Generat ed Referral 05/10/2022 01/14/2023 1 1 * Diagnostic Procedure Only (Routine) - Pending Review Specialty Diagnoses / Procedures Referred By Contac t Referred To Contact US IMAGING Diagnoses Cerebral infarction due to occlusion of left carotid artery (HCC) Vertebral artery stenosis, bilateral Stenosis of right carotid artery Procedures US CAROTID BILAT Alvarado Russo APRN.BROADCAST MAINTENANCE ENGINEER [address] [place] [id number] Us Imaging Referral ID Status Reason Start Date Expiration Date Visits Requested Visits Authorized [id number] Pending Review Auto-Generat ed Referral 05/10/2022 01/14/2023 1 1 [facility] for referral (narrative)* Diagnostic Procedure Only (Routine) - Pending Review Specialty Diagnoses / Procedures Referred By Bill carmen Referred To Contact MOLECULAR & FUNCTIONAL IMAGING Diagnoses Coronary artery disease involving ho-chunk coronary artery of ho-chunk heart without angina pectoris S/P CABG (coronary artery bypass graft) Essential hypertension Mixed hyperlipidemia Procedures NM PET/CT CARDIAC PERF REST/STRESS MYOCRD IMG PET PRFUJ MECHANIC SENIOR STD RST & STRS CNCRNT CT Candis Perez MD [address] [place] [address] Molecular & Functional Imaging [address] [place] [address] Referral ID Status Reason Start Date Expiration Date Visits Requested Visits Authorized [id number] Pending Review Auto-Generat ed Referral 01/04/2022 02/03/2023 1 1 * Outpatient Procedure (Routine) - Closed Specialty Diagnoses / Procedures Referred By Bill carmen Referred To Contact [facility] Diagnoses Coronary artery disease involving ho-chunk coronary artery of ho-chunk heart without angina pectoris Procedures ECHO ECHO TTHRC R-T 2D W/WOM-MODE COMPL SPEC&COLR D Candis Perez MD [address] [place] [address] [facility] [place] [address] [place] [phone] Referral ID Status Reason Start Date Expiration Date V isits Requested Visits Authorized [id number] Closed Auto-Generate d Referral 01/04/2022 01/04/2023 1 1 [facility] for referral (narrative)* Diagnostic Procedure Only (Routine) - Pending Review Specialty Diagnoses / Procedures Referred By Contac t Referred To Contact US IMAGING Diagnoses Vertebral artery stenosis, bilateral Procedures US TCD POSTERIOR CIRC TRANSCRANIAL DOPPLER STDY INTRACRANIAL ART LMTD Dana Pabon APRN.BROADCAST MAINTENANCE ENGINEER [address] [place] [address] Us Imaging Referral ID Status Reason Start Date Expiration Date Visits Requested Visits Authorized [id number] Pending Review Auto-Generat ed Referral 02/09/2023 03/10/2024 1 1 * Diagnostic Procedure Only (Routine) - Pending Review Specialty Diagnoses / Procedures Referred By Contac t Referred To Contact US IMAGING Diagnoses Carotid stenosis, right Occlusion of left carotid artery Procedures US CAROTID BILATERAL Dana Pabon APRN.BROADCAST MAINTENANCE ENGINEER [address] [place] [address] Us Imaging Referral ID Status Reason Start Date Expiration Date Visits Requested Visits Authorized [id number] Pending Review Auto-Generat ed Referral 02/09/2023 03/10/2024 1 1 [facility] for visit Narrative* Auth/Cert Specialty Diagnoses / Procedures Referred By Contac t Referred To Contact Diagnoses NSTEMI, LLE Weakness, Chest Pressure, Dizziness Referral ID Status Reason Start Date Expiration Date Visits Re quested Visits Authorized [id number] 1 1 [facility] for visit Narrative* Diagnostic Procedure Only (Routine) - Closed Specialty Diagnoses / Procedures Referred By Contac t Referred To Contact US IMAGING Diagnoses Occlusion and stenosis of right vertebral artery Procedures US TCD POSTERIOR CIRC TRANSCRANIAL DOPPLER STDY INTRACRANIAL ART LMTD Dana Pabon APRN.BROADCAST MAINTENANCE ENGINEER [address] [place] [address] Us Imaging Referral ID Status Reason Start Date Expiration Date V isits Requested Visits Authorized [id number] Closed Auto-Generate d Referral 10/12/2021 11/11/2022 1 1 [facility] Summary Purpose Family History No Family History Records FoundNo Family History Records FoundNo Family History Records Found No data available for this section No Family History Records FoundNo Family History Records FoundNo Family History Records Found Advance Directives No Advanced Directives Records FoundLatest Code Status on File Code Status Date Activated Date Inactivated Comments Full Code 01/31/2021 8:54 PM Documents on File Type Date Recorded 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 Advance Directive(s) 05/27/2021 2:46 PM Advance Directive(s) 05/22/2021 10:27 AM Advance Directive(s) 04/29/2021 3:59 PM Advance Directive(s) 2018 8:44 AM Advance Directive(s) 04/11/2018 10:39 PM Advance Directive(s) 04/09/2018 9:47 AM Advance Directive(s) 02/27/2017 2:11 PM Advance Directive(s) 09/17/2016 1:14 PM Documents on File Type Date Recorded 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 Advance Directive(s) 05/27/2021 2:46 PM Advance Directive(s) 05/22/2021 10:27 AM Advance Directive(s) 04/29/2021 3:59 PM Advance Directive(s) 2018 8:44 AM Advance Directive(s) 04/11/2018 10:39 PM Advance Directive(s) 04/09/2018 9:47 AM Advance Directive(s) 02/27/2017 2:11 PM Advance Directive(s) 09/17/2016 1:14 PM Reason for Referral Specialty Diagnoses / Procedures Referred By Contac t Referred To Contact Procedures ECG Call, Dave Shetty DO [address] [place] [address] Referral ID Status Reason Start Date Expiration Date V isits Requested Visits Authorized [id number] New Request 01/31/2021 02/25/2022 1 1 Referral ID Status Reason Start Date Expiration Date V isits Requested Visits Authorized [id number] Pending Review 01/31/2021 02/25/2022 1 1 Specialty Diagnoses / Procedures Referred By Contac t Referred To Contact Procedures ECG Cheri Smith MD [address] [place] [phone] Referral ID Status Reason Start Date Expiration Date V isits Requested Visits Authorized [id number] New Request 02/01/2021 02/26/2022 1 1 Specialty Diagnoses / Procedures Referred By Contac t Referred To Contact Diagnoses NSTEMI (non-ST elevated myocardial infarction) Cheri Smith MD [address] [place] [phone] [facility], Other [address] [place] [address] Referral ID Status Reason Start Date Expiration Date V isits Requested Visits Authorized [id number] Schedule Outgoing - Transfer of Care 02/02/2021 02/27/2022 1 1 Scheduling Instructions Clinic to contact patient for scheduling at most appropriate location. Referral ID Status Reason Start Date Expiration Date V isits Requested Visits Authorized [id number] Pending Review 01/31/2021 02/25/2022 1 1 Specialty Diagnoses / Procedures Referred By Contac t Referred To Contact Procedures DVT/VTE RISK ASSESSMENT Cheri Smith MD [address] [place] [phone] Referral ID Status Reason Start Date Expiration Date V isits Requested Visits Authorized [id number] Pending Review 01/31/2021 02/25/2022 1 1 Specialty Diagnoses / Procedures Referred By Contac t Referred To Contact Jes Benton MD [address] [facility] [address] [place] [address] Referral ID Status Reason Start Date Expiration Date Visits Re quested Visits Authorized Specialty Diagnoses / Procedures Referred By Contac t Referred To Contact CT IMAGING Diagnoses Cerebral infarction due to occlusion of left carotid artery (HCC) Occlusion and stenosis of left vertebral artery Procedures CTA NECK W IVCON CT ANGIOGRAPHY NECK W/CONTRAST/NONCONTRAST Alvarado Russo, SYSTEM DISPATCHER.BROADCAST MAINTENANCE ENGINEER [address] [place] [address] Ct Imaging Referral ID Status Reason Start Date Expiration Date Visits Requested Visits Authorized [id number] Authorized Auto-Generat ed Referral 11/29/2021 01/13/2022 1 1 Specialty Diagnoses / Procedures Referred By Contac t Referred To Contact CT IMAGING Diagnoses Cerebral infarction due to occlusion of left carotid artery (HCC) Occlusion and stenosis of left vertebral artery Procedures CTA HEAD W IVCON CT ANGIOGRAPHY HEAD W/CONTRAST/NONCONTRAST Alvarado Russo, SYSTEM DISPATCHER.BROADCAST MAINTENANCE ENGINEER [address] [place] [address] Ct Imaging Referral ID Status Reason Start Date Expiration Date Visits Requested Visits Authorized [id number] Authorized Auto-Generat ed Referral 11/29/2021 01/13/2022 1 1 Referral ID Status Reason Start Date Expiration Date V isits Requested Visits Authorized [id number] Closed Auto-Generate d Referral 11/29/2021 01/13/2022 1 1 Specialty Diagnoses / Procedures Referred By Contac t Referred To Contact Cardiology Diagnoses Coronary artery disease involving coronary bypass graft of ho-chunk heart without angina pectoris Procedures [facility] Dana Pabon, SYSTEM DISPATCHER.BROADCAST MAINTENANCE ENGINEER [address] [place] [address] Referral ID Status Reason Start Date Expiration Date Visits Requested Visits Authorized [id number] Authorized PCP Requested Referral 02/20/2023 02/20/2024 1 1 Specialty Diagnoses / Procedures Referred By Contac t Referred To Contact MR IMAGING Diagnoses Spinal stenosis of lumbar region with neurogenic claudication Left leg weakness Procedures MRI LUMBAR SPINE WO IVCON MRI SPINAL CANAL LUMBAR W/O CONTRAST MATERIAL Garrick Arredondo MD [address] [place] [address] [place] [id number] Referral ID Status Reason Start Date Expiration Date Visits Requested Visits Authorized [id number] Authorized Auto-Generat ed Referral 05/30/2024 1 1 Referral ID Status Reason Start Date Expiration Date V isits Requested Visits Authorized [id number] Closed Auto-Generate d Referral 05/01/2023 05/30/2024 1 1 Additional Source Comments (unrecognized sect ion and content) No Status Records FoundNo Status Records FoundNo Status Records FoundNo Status Records FoundNo Status Records FoundNo Status Records Found INFORMATION SOURCE (unrecogn ized section and content) DATE CREATED AUTHOR AUTHOR'S ORGANIZ ATION 03/11/2021 [facility] DATE CREATED AUTHOR AUTHOR'S ORGANIZ ATION 07/14/2021 [facility] DATE CREATED AUTHOR AUTHOR'S ORGANIZ ATION 05/05/2023 [facility] ([place]) DATE CREATED AUTHOR AUTHOR'S ORGANIZ ATION 08/10/2023 [facility] DATE CREATED AUTHOR AUTHOR'S ORGANIZ ATION 09/08/2023 [facility] Source Comments (unrecognize d section and content) In the event this informatio n is protected by the Federal Confidentiality of Alcohol and Drug Abuse Patient Records regulations: The Federal rules restrict any use of the information to criminally investigate or prosecute any alcohol or drug abuse patient.[facility] the event this information is protected by the Federal Confidentiality of Alcohol and Drug Abuse Patient Records regulations: The Federal rules restrict any use of the information to criminally investigate or prosecute any alcohol or drug abuse patient.[facility] the event this information is protected by the Federal Confidentiality of Alcohol and Drug Abuse Patient Records regulations: The Federal rules restrict any use of the information to criminally investigate or prosecute any alcohol or drug abuse patient.[facility] Hospital[facility] the event this information is protected by the Federal Confidentiality of Alcohol and Drug Abuse Patient Records regulations: The Federal rules restrict any use of the information to criminally investigate or prosecute any alcohol or drug abuse patient.[facility] Hospital[facility] the event this information is protected by the Federal Confidentiality of Alcohol and Drug Abuse Patient Records regulations: The Federal rules restrict any use of the information to criminally investigate or prosecute any alcohol or drug abuse patient.[facility] Hospital[facility] the event this information is protected by the Federal Confidentiality of Alcohol and Drug Abuse Patient Records regulations: The Federal rules restrict any use of the information to criminally investigate or prosecute any alcohol or drug abuse patient.[facility] HospitalIn the event this information is protected by the Federal Confidentiality of Alcohol and Drug Abuse Patient Records regulations: The Federal rules restrict any use of the information to criminally investigate or prosecute any alcohol or drug abuse patient.[facility] HospitalIn the event this information is protected by the Federal Confidentiality of Alcohol and Drug Abuse Patient Records regulations: The Federal rules restrict any use of the information to criminally investigate or prosecute any alcohol or drug abuse patient.[facility] HospitalIn the event this information is protected by the Federal Confidentiality of Alcohol and Drug Abuse Patient Records regulations: The Federal rules restrict any use of the information to criminally investigate or prosecute any alcohol or drug abuse patient.[facility] HospitalIn the event this information is protected by the Federal Confidentiality of Alcohol and Drug Abuse Patient Records regulations: The Federal rules restrict any use of the information to criminally investigate or prosecute any alcohol or drug abuse patient.[facility] HospitalIn the event this information is protected by the Federal Confidentiality of Alcohol and Drug Abuse Patient Records regulations: The Federal rules restrict any use of the information to criminally investigate or prosecute any alcohol or drug abuse patient.[facility] HospitalIn the event this information is protected by the Federal Confidentiality of Alcohol and Drug Abuse Patient Records regulations: The Federal rules restrict any use of the information to criminally investigate or prosecute any alcohol or drug abuse patient.[facility] HospitalIn the event this information is protected by the Federal Confidentiality of Alcohol and Drug Abuse Patient Records regulations: The Federal rules restrict any use of the information to criminally investigate or prosecute any alcohol or drug abuse patient.[facility] HospitalIn the event this information is protected by the Federal Confidentiality of Alcohol and Drug Abuse Patient Records regulations: The Federal rules restrict any use of the information to criminally investigate or prosecute any alcohol or drug abuse patient.[facility] HospitalIn the event this information is protected by the Federal Confidentiality of Alcohol and Drug Abuse Patient Records regulations: The Federal rules restrict any use of the information to criminally investigate or prosecute any alcohol or drug abuse patient.[facility] HospitalIn the event this information is protected by the Federal Confidentiality of Alcohol and Drug Abuse Patient Records regulations: The Federal rules restrict any use of the information to criminally investigate or prosecute any alcohol or drug abuse patient.[facility] HospitalIn the event this information is protected by the Federal Confidentiality of Alcohol and Drug Abuse Patient Records regulations: The Federal rules restrict any use of the information to criminally investigate or prosecute any alcohol or drug abuse patient.[facility] HospitalIn the event this information is protected by the Federal Confidentiality of Alcohol and Drug Abuse Patient Records regulations: The Federal rules restrict any use of the information to criminally investigate or prosecute any alcohol or drug abuse patient.[facility] HospitalIn the event this information is protected by the Federal Confidentiality of Alcohol and Drug Abuse Patient Records regulations: The Federal rules restrict any use of the information to criminally investigate or prosecute any alcohol or drug abuse patient.[facility] HospitalIn the event this information is protected by the Federal Confidentiality of Alcohol and Drug Abuse Patient Records regulations: The Federal rules restrict any use of the information to criminally investigate or prosecute any alcohol or drug abuse patient.[facility] HospitalIn the event this information is protected by the Federal Confidentiality of Alcohol and Drug Abuse Patient Records regulations: The Federal rules restrict any use of the information to criminally investigate or prosecute any alcohol or drug abuse patient.[facility] HospitalIn the event this information is protected by the Federal Confidentiality of Alcohol and Drug Abuse Patient Records regulations: The Federal rules restrict any use of the information to criminally investigate or prosecute any alcohol or drug abuse patient.[facility] HospitalIn the event this information is protected by the Federal Confidentiality of Alcohol and Drug Abuse Patient Records regulations: The Federal rules restrict any use of the information to criminally investigate or prosecute any alcohol or drug abuse patient.[facility] HospitalIn the event this information is protected by the Federal Confidentiality of Alcohol and Drug Abuse Patient Records regulations: The Federal rules restrict any use of the information to criminally investigate or prosecute any alcohol or drug abuse patient.[facility] HospitalIn the event this information is protected by the Federal Confidentiality of Alcohol and Drug Abuse Patient Records regulations: The Federal rules restrict any use of the information to criminally investigate or prosecute any alcohol or drug abuse patient.[facility] HospitalIn the event this information is protected by the Federal Confidentiality of Alcohol and Drug Abuse Patient Records regulations: The Federal rules restrict any use of the information to criminally investigate or prosecute any alcohol or drug abuse patient.[facility] HospitalIn the event this information is protected by the Federal Confidentiality of Alcohol and Drug Abuse Patient Records regulations: The Federal rules restrict any use of the information to criminally investigate or prosecute any alcohol or drug abuse patient.[facility] HospitalIn the event this information is protected by the Federal Confidentiality of Alcohol and Drug Abuse Patient Records regulations: The Federal rules restrict any use of the information to criminally investigate or prosecute any alcohol or drug abuse patient.[facility] HospitalIn the event this information is protected by the Federal Confidentiality of Alcohol and Drug Abuse Patient Records regulations: The Federal rules restrict any use of the information to criminally investigate or prosecute any alcohol or drug abuse patient.[facility] HospitalIn the event this information is protected by the Federal Confidentiality of Alcohol and Drug Abuse Patient Records regulations: The Federal rules restrict any use of the information to criminally investigate or prosecute any alcohol or drug abuse patient.[facility] HospitalIn the event this information is protected by the Federal Confidentiality of Alcohol and Drug Abuse Patient Records regulations: The Federal rules restrict any use of the information to criminally investigate or prosecute any alcohol or drug abuse patient.[facility] HospitalIn the event this information is protected by the Federal Confidentiality of Alcohol and Drug Abuse Patient Records regulations: The Federal rules restrict any use of the information to criminally investigate or prosecute any alcohol or drug abuse patient.[facility] Reason for Visit (unrecogniz ed section and content) Reason Comments Cardiac Clearance Reason Comments Test Question Reason Comments Post Op lap jeramy Reason Comments Established Patient Follow-Up Specialty Diagnoses / Procedures Referred By Contac t Referred To Contact CT IMAGING Diagnoses Cerebral infarction due to occlusion of left carotid artery (HCC) Occlusion and stenosis of left vertebral artery Procedures CTA HEAD W IVCON CT ANGIOGRAPHY HEAD W/CONTRAST/NONCONTRAST Alvarado Russo, SYSTEM DISPATCHER.BROADCAST MAINTENANCE ENGINEER [address] [place] [address] Ct Imaging Referral ID Status Reason Start Date Expiration Date V isits Requested Visits Authorized [id number] Closed Auto-Generate d Referral 11/29/2021 01/13/2022 1 1 Reason Comments Vertebral Stenosis Reason Comments Recheck Reason Comments Nm Pet Request Reason Comments Blood Pressure Reason Comments Burn Burn on right hand x 1 week-starting to look infected Reason Comments Follow Up Reason Comments New Patient Evaluation STEMI Reason Comments Musculoskeletal Problem Balance Dizziness Specialty Diagnoses / Procedures Referred By Contac t Referred To Contact MR IMAGING Diagnoses Spinal stenosis of lumbar region with neurogenic claudication Left leg weakness Procedures MRI LUMBAR SPINE WO IVCON MRI SPINAL CANAL LUMBAR W/O CONTRAST MATERIAL Garrick Arredondo MD [address] [place] [address] [place] [id number] Referral ID Status Reason Start Date Expiration Date V isits Requested Visits Authorized [id number] Closed Auto-Generate d Referral 05/01/2023 05/30/2024 1 1 Reason Comments New Patient Low Back Pain Leg Pain Specialty Diagnoses / Procedures Referred By Contac t Referred To Contact [facility] [place] Diagnoses Spinal stenosis of lumbar region with neurogenic claudication Procedures CONSULT TO [facility] OFFICE/OUTPATIENT NEW HIGH MDM 60-74 MINUTES Garrick Arredondo MD [address] [place] [address] Referral ID Status Reason Start Date Expiration Date V isits Requested Visits Authorized [id number] Closed PCP Requested Referral 05/30/2023 05/28/2024 1 1 Reason Comments Patient Update Reason Comments CARD Follow Up 6 Month CAD Scheduled Active and Recently Administ ered Medications (unrecognized section and content) Scheduled Medication Order 01/31/2021 02/01/2021 02/02/2021 aspirin chewable tablet 81 mg 81 mg, Oral, DAILY, First dose on Mon02/01/21 at 0900, Until Discontinued 0846 (Given - Provider: Sofy Fraire, LIBAN) 0910 (Given - Provider: Jennifer Oneal, LIBAN) atorvastatin (LIPITOR) tablet 40 mg 40 mg, Oral, DAILY AT BEDTIME, First dose on Mon01/31/21 at 2100, Until Discontinued 2137 (Given - Provider: Germaine Bess RN) 2223 (Given - Provider: Germaine Bess RN) carveDILOL (COREG) tablet 6.25 mg 6.25 mg, Oral, EVERY 12 HOURS, First dose (after last modification) on Mon02/01/21 at 1615, Until Discontinued 1633 (Given - Provider: Sofy Fraire RN) 0910 (Given - Provider: Jennifer Oneal RN) clopidogrel (PLAVIX) tablet 75 mg 75 mg, Oral, DAILY, First dose on Mon02/01/21 at 0900, Until Discontinued 0847 (Given - Provider: Sofy Fraire RN) 0911 (Given - Provider: Jennifer Oneal RN) Diclofenac Sodium (VOLTAREN) 1 % gel 4 g 4 g, Topical, 4 TIMES DAILY, First dose on Mon01/31/21 at 2100, Until Discontinued, Apply to joints as needed. Avoid showering/bathing for at least 1 hour after the application. Use dosing card to measure 2g (2.25 inches) and 4g (4.5 inches) dose. 0000 (Not Given - Provider: Shanda Hernandez RN - Reason: Patient/family refused - Comment: REFUSED PER KATI santamaria rn)0850 (Given - Provider: Sofy Fraire RN)1504 (Not Given - Provider: Sofy Fraire RN - Reason: Patient not available)1647 (Given - Provider: Sofy Fraire RN)2223 (Given - Provider: Germaine Bess RN) 0909 (Not Given - Provider: Jennifer Oneal RN - Reason: Patient/family refused)1300 (Canceled Entry - Provider: System Discharge - Comment: Automatically canceled at discontinue of medication order) DULoxetine (CYMBALTA) capsule DR 30 mg 30 mg, Oral, DAILY, First dose on Mon02/01/21 at 0900, Until Discontinued, Swallow capsule whole; do not crush or chew. May add contents of capsule to apple juice or applesauce (but NOT chocolate) taking care not to crush the pellets and damage the enteric coating. 0847 (Given - Provider: Sofy Fraire RN) 0910 (Given - Provider: Jennifer Oneal, LIBAN) gabapentin (NEURONTIN) capsule 600 mg 600 mg, Oral, 3 TIMES DAILY, First dose on Mon01/31/21 at 2100, Until Discontinued 2136 (Given - Provider: Germaine Bess RN) 0847 (Given - Provider: Sofy Fraire RN)1423 (Given - Provider: Sofy Fraire, RN)2223 (Given - Provider: Germaine Bess RN) 0911 (Given - Provider: Jennifer Oneal RN)1400 (Canceled Entry - Provider: System Discharge - Comment: Automatically canceled at discontinue of medication order) hydrALAZINE (APRESOLINE) injection 10 mg (COMPLETED) 10 mg, Intravenous, ONCE, 1 dose, On Mon02/01/21 at 0930 0926 (Given - Provider: Sofy Fraire RN) insulin glargine (LANTUS) injection 40 Units 40 Units, Subcutaneous, DAILY AT BEDTIME, First dose on Mon01/31/21 at 2100, Until Discontinued 2136 (Given - Provider: Germaine Bess RN) 2246 (Given - Provider: Germaine Bess RN - Comment: okay to give per resident Dr. Andre) insulin lispro (HumaLOG) injection (CANCELED) Subcutaneous, 4 TIMES DAILY WITH MEALS & AT BEDTIME, First dose on Mon01/31/21 at 2100, Until Discontinued, Insulin to carb ratio: Standard: 1 unit insulin = 7 grams carbs every meal and at bedtime Correction Factor: 151-175 = 1 unit; 176-200 = 2 units; 201-225 = 3 units; 226-250 = 4 units; 251-275 = 5 units; 276-300 = 6 units; 301-325 = 7 units; 326-350 = 8 units; Kwikpen: Prime pen before each injection; refer to Pen Priming and Care Handout for further details. Warning! Confirm patient. Insulin pen is for labeled individual patient use ONLY. 2136 (Given - Provider: Germaine Bess RN) insulin lispro (HumaLOG) injection(Linked Group 1) Subcutaneous, 4 TIMES DAILY WITH MEALS & AT BEDTIME, First dose (after last modification) on Mon02/01/21 at 0800, Until Discontinued, Insulin to carb ratio: Standard: 1 unit insulin = 6 grams carbs every meal and at bedtime Correction Factor: 151-175 = 1 unit; 176-200 = 2 units; 201-225 = 3 units; 226-250 = 4 units; 251-275 = 5 units; 276-300 = 6 units; 301-325 = 7 units; 326-350 = 8 units; Kwikpen: Prime pen before each injection; refer to Pen Priming and Care Handout for further details. Warning! Confirm patient. Insulin pen is for labeled individual patient use ONLY. 0855 (Given - Provider: Sofy Fraire RN)1144 (Given - Provider: Sofy Fraire RN)1900 (Given - Provider: Sofy Fraire RN)2234 (Not Given - Provider: Germaine Bess RN - Reason: Order Parameters not met) 0917 (Given - Provider: Jennifer Oneal RN)1200 (Canceled Entry - Provider: System Discharge - Comment: Automatically canceled at discontinue of medication order) lisinopril (PRINIVIL) tablet 5 mg 5 mg, Oral, DAILY, First dose on Mon02/01/21 at 0900, Until Discontinued 2100 (Held by provider - Provider: Jes Benton MD - Reason: NPO) 0900 (Automatically Held - Provider: Jes Benton MD)1434 (Unheld by provider - Provider: Steven Mendosa MD) 0911 (Given - Provider: Jennifer Oneal RN) metoclopramide (REGLAN) tablet 10 mg 10 mg, Oral, 3 TIMES DAILY BEFORE MEALS, First dose on Mon01/31/21 at 2045, Until Discontinued 2140 (Not Given - Provider: Germaine Bess RN - Reason: Patient/family refused) 0900 (Not Given - Provider: Sofy Fraire RN - Reason: Patient/family refused)1140 (Not Given - Provider: Sofy Fraire RN - Reason: Patient/family refused)1640 (Not Given - Provider: Sofy Fraire RN - Reason: Patient/family refused) 0915 (Not Given - Provider: Jennifer Oneal RN - Reason: Patient/family refused)1124 (Not Given - Provider: Jennifer Oneal RN - Reason: Patient/family refused) pantoprazole (PROTONIX) tablet DR 40 mg 40 mg, Oral, DAILY, First dose on Mon02/01/21 at 0900, Until Discontinued, Swallow whole; do not crush or chew., Indications: Continuation of Home Therapy 0847 (Given - Provider: Sofy Fraire, LIBAN) 0911 (Given - Provider: Jennifer Oneal RN) Continuous Medication Order 01/31/2021 02/01/2021 02/02/2021 heparin 25,000 units in dextrose 5% 250 mL premix infusion (CANCELED) INTERMEDIATE/CARDIAC SLIDING SCALE FOR PATIENTS EQUAL TO OR GREATER THAN 65KG: Initiate dose at 12 units/kg/hr. If PTT is less than 47, increase dose by 3 units/kg/hr. If PTT is 47-60, increase dose by 2 units/kg/hr. If PTT is 61-71, increase dose by 1 unit/kg/hr. If PTT is 72-95, no change. If PTT is 96-111, decrease dose by 1 unit/kg/hr. If PTT is 112-126, hold infusion for 60 minutes and decrease dose by 2 units/kg/hr. If PTT greater than 126, hold infusion and check PTT every 2 hours. Once PTT is in goal range or below, restart infusion at 3 units/kg/hr lower than the most recent dose. Note: Round PTT to nearest whole number (e.g. 70.5=71, 70.4=70)., Indications: Peripheral arterial occlusion 2036 ($$New Bag$$ - Provider: Germaine Bess RN)204 (Rate/Dose Verify - Provider: Sophia Wilder RN) 0519 (Rate/Dose Verify - Provider: Sophia Wilder RN)0727 (Rate/Dose Verify - Provider: Jennifer Oneal, LIBAN)0906 (Rate/Dose Verify - Provider: Sofy Fraire, LIBAN)1034 (Rate/Dose Change - Provider: Jennifer Oneal, LIBAN)1211 (Paused - Provider: Sofy Fraire, LIBAN) 1111 (Stopped - Provider: Jennifer Oneal RN) sodium chloride 0.9% IV solution () 300 mL/hr, Intravenous, at 300 mL/hr, CONTINUOUS, Starting on Mon02/01/21 at 1400, Until Mon02/01/21 at 195, Post-op/Post-Proc 1415 ($$New Bag$$ - Provider: Sofy Fraire RN)1416 (Rate/Dose Verify - Provider: Sofy Fraire RN)1422 (Rate/Dose Verify - Provider: Sofy Fraire RN)1500 (Rate/Dose Verify - Provider: Sofy Fraire RN)1731 ($$New Bag$$ - Provider: Sofy Fraire RN)1735 (Rate/Dose Verify - Provider: Sofy Fraire RN)1745 (Rate/Dose Verify - Provider: Sofy Fraire RN)1955 (Stopped - Provider: Germaine Bess RN) 1111 (Stopped - Provider: Jennifer Oneal RN) PRN Medication Order 01/31/2021 02/01/2021 02/02/2021 acetaminophen (TYLENOL) tablet 650 mg 650 mg, Oral, EVERY 6 HOURS NEEDED, Starting on Mon01/31/21 at 1950, Until Mon02/02/21 at 1405, Mild Pain, Moderate Pain, Severe Pain, Maximum dose of acetaminophen is 4000 mg from all sources in 24 hours. 0850 (Given - Provider: Sofy Fraire RN)1643 (Given - Provider: Sofy Fraire RN) alum/mag hydrox.-simethicone oral suspension 30 mL 30 mL, Oral, EVERY 6 HOURS NEEDED, Starting on Mon01/31/21 at 1950, Until Mon02/02/21 at 1405, Indigestion, Per 5 mL is equivalent to: (Alum-Mag Hydroxide 200-225 mg and Simethicone 20 mg) and (Alum-Mag Hydroxide 200-200 mg and Simethicone 20 mg) cyclobenzaprine (FLEXERIL) tablet 5 mg 5 mg, Oral, DAILY AT BEDTIME NEEDED, Starting on Mon01/31/21 at 2028, Until Mon02/02/21 at 1405, Muscle spasms, Severe Pain dextrose 50% injection 7.5-25 g(Linked Group 1) 7.5-25 g, Intravenous, ADMINISTER DIRECTED, Starting on Mon02/01/21 at 0344, Until Mon02/02/21 at 1405, Blood glucose <80 mg/dL, For patients who are not alert, are NPO, or are on IV insulin infusion administer as directed per Hypoglycemia in Non- Adults Clinical Practice Guideline. For Blood Glucose: 60-79 mg/dL administer 7.5 gm (15ml); 45-59 mg/dL administer 12.5 gm (25ml); less than 45mg/dL administer 25gm (50ml). Extravasation Risk fentaNYL (SUBLIMAZE) injection (CANCELED) Administer over 2 Minutes, NEEDED, Starting on Mon02/01/21 at 1236, Until Mon02/01/21 at 1355, Intra-op/Intra-Proc 1236 (Given - Provider: Jayleen Giraldo, LIBAN)1329 (Given - Provider: Jayleen Giraldo, LIBAN) fexofenadine (JESSICA) tablet 180 mg 180 mg, Oral, DAILY NEEDED, Starting on Mon01/31/21 at 2029, Until Mon02/02/21 at 1405, Allergies, Avoid antacid administration one hour before and two hours after dose. Avoid administration with fruit juices. glucose (GLUTOSE) 40 % oral gel 1-2 Tube(Linked Group 1) 1-2 Tube, Oral, ADMINISTER DIRECTED, Starting on Mon02/01/21 at 0344, Until Mon02/02/21 at 1405, Blood glucose <80 mg/dL, For patients who are alert, able to tolerate PO intake and with intact cognitive status administer as directed per Hypoglycemia in Non- Adults Clinical Practice Guideline. For Blood Glucose: 60-79 mg/dL administer 1 tube; 45-59 mg/dl administer 1.5 tubes; less than 45 mg/dL administer 2 tubes. Each tube of 37.5g delivers 15g of carbohydrate. heparin injection (CANCELED) NEEDED, Starting on Mon02/01/21 at 1332, Until Mon02/01/21 at 1355, Intra-op/Intra-Proc 1332 (Given - Provider: Jayleen Giraldo, LIBAN) insulin lispro (HumaLOG) injection(Linked Group 1) Subcutaneous, NEEDED, Starting on Mon02/01/21 at 0344, Until Mon02/02/21 at 1405, Other, As needed for snacks, Insulin to carb ratio: Standard: 1 unit insulin = 6 grams carbs Correction Factor: not to be used with this order. Kwikpen: Prime pen before each injection; refer to Pen Priming and Care Handout for further details. Warning! Confirm patient. Insulin pen is for labeled individual patient use ONLY. iodixanol (VISIPAQUE) 320 MG/ML injection (CANCELED) NEEDED, Starting on Mon02/01/21 at 1344, Until Mon02/01/21 at 1355, Intra-op/Intra-Proc 1344 (Given - Provider: Vaibhav Ham MD) lidocaine 2 % injection (CANCELED) NEEDED, Starting on Mon02/01/21 at 1238, Until Mon02/01/21 at 1355, Intra-op/Intra-Proc 1238 (Given - Provider: Faye Mcdermott MD - Comment: right femoral) magnesium oxide (MAX-OX) tablet 800 mg 800 mg, Oral, ADMINISTER DIRECTED, Starting on Mon01/31/21 at 1951, Until Mon02/02/21 at 1405, See admin instructions, For Magnesium 1.6 - 2.0, give 800 mg of Magnesium oxide. 0847 (Given - Provider: Sofy Fraire, LIBAN) 0910 (Given - Provider: Jennifer Oneal RN) Magnesium Sulfate 4 g in sterile water 50 ml premix IVPB 4 g, Intravenous, Administer over 4 Hours, ADMINISTER DIRECTED, Starting on Mon01/31/21 at 1951, Until Mon02/02/21 at 1405, Other, Magnesium Replacement Therapy, Magnesium Replacement Therapy: 1. If Magnesium less than 1.6, give 4 g Magnesium Sulfate IVPB over 4 hours (may give over 1 hour if arrhythmias present). melatonin tablet 3 mg 3 mg, Oral, DAILY AT BEDTIME NEEDED, Starting on Mon01/31/21 at 1951, Until Mon02/02/21 at 1405, Insomnia midazolam (VERSED) injection (CANCELED) NEEDED, Starting on Mon02/01/21 at 1236, Until Mon02/01/21 at 1355, Intra-op/Intra-Proc 1236 (Given - Provider: Jayleen Giraldo RN)1329 (Given - Provider: Jayleen Giraldo RN) nitroGLYCERIN (NITROSTAT) tablet SL 0.4 mg 0.4 mg, Sublingual, EVERY 5 MINUTES NEEDED, Starting on Mon01/31/21 at 2030, Until Mon02/02/21 at 1405, Chest pain oxyCODONE-acetaminophen (PERCOCET) 5-325 MG per tablet 1 tablet 1 tablet, Oral, EVERY 6 HOURS NEEDED, Starting on Mon01/31/21 at 2032, Until Mon02/02/21 at 1405, Severe Pain, Maximum dose of acetaminophen is 4000 mg from all sources in 24 hours. 1643 (Given - Provider: Sofy Fraire RN) polyethylene glycol (MIRALAX) packet 17 g 17 g, Oral, DAILY NEEDED, Starting on Mon01/31/21 at 1950, Until Mon02/02/21 at 1405, Constipation 2nd Line Polyvinyl Alcohol-Povidone PF (REFRESH) ophthalmic solution 1 drop 1 drop, Both Eyes, NEEDED, Starting on Mon01/31/21 at 1950, Until Mon02/02/21 at 1405, Dry Eyes, Patient may self-administer. potassium chloride (K-DUR) tablet ER 20 mEq 20 mEq, Oral, ADMINISTER DIRECTED, Starting on Mon01/31/21 at 1950, Until Mon02/02/21 at 1405, See admin instructions, If Cr 2.0 - 2.5 mg/dL For Potassium less than 3.6, give 20 mEq Potassium Chloride orally, recheck in AM. If Cr greater than 2.5 mg/dL contact physician/LIP for Potassium less than 3.6 for replacement orders. If potassium is low please administer magnesium first if indicated potassium chloride (K-DUR) tablet ER 40-60 mEq 40-60 mEq, Oral, ADMINISTER DIRECTED, Starting on Mon01/31/21 at 1950, Until Mon02/02/21 at 1405, See admin instructions, If Cr less than 2.0 mg/dL 1. For Potassium 3.6 - 4.0, give 40 mEq of Potassium Chloride orally, recheck in the AM. 2. For Potassium less than 3.6, give 60 mEq Potassium Chloride orally, recheck in 8 hours. 3. If potassium is low please administer magnesium first if indicated. 0847 (Given - Provider: Sofy Fraire RN) senna (SENOKOT) tablet 8.6 mg 8.6 mg, Oral, EVERY 12 HOURS NEEDED, Starting on Mon01/31/21 at 1951, Until Mon02/02/21 at 1405, Constipation 1st Line sodium chloride 0.9% IV solution 250 mL Intravenous, at 20 mL/hr, NEEDED, Starting on Mon01/31/21 at 1951, Until Mon02/02/21 at 1405, Carrier Fluid - See Admin. Inst, 250mL 0.9NS to be used as carrier fluid for intermittent small volume or piggyback medication administration as needed. Infusion rate of the carrier fluid should be set at 20 mL/hr unless the rate as the intermittent medication is less than 20 mL/hr. For intermittent medications with a rate less than 20 mL/hr set the carrier fluid at that rate of the intermittent or piggy back medication. Linked Groups Order Group 1: insulin lispro (HumaLOG) injectionJump to med Subcutaneous, 4 TIMES DAILY WITH MEALS & AT BEDTIME, First dose (after last modification) on Mon02/01/21 at 0800, Until Discontinued
Insulin to carb ratio: Standard: 1 unit insulin = 6 grams carbs every meal and at bedtime Correction Factor: 151-175 = 1 unit; 176-200 = 2 units; 201-225 = 3 units; 226-250 = 4 units; 251-275 = 5 units; 276-300 = 6 units; 301-325 = 7 units; 326-350 = 8 units; Kwikpen: Prime pen before each injection; refer to Pen Priming and Care Handout for further details. Warning! Confirm patient. Insulin pen is for labeled individual patient use ONLY.
And insulin lispro (HumaLOG) injectionJump to med Subcutaneous, NEEDED, Starting on Mon02/01/21 at 0344, Until Mon02/02/21 at 1405, Other, As needed for snacks
Insulin to carb ratio: Standard: 1 unit insulin = 6 grams carbs Correction Factor: not to be used with this order. Kwikpen: Prime pen before each injection; refer to Pen Priming and Care Handout for further details. Warning! Confirm patient. Insulin pen is for labeled individual patient use ONLY.
And BLOOD GLUCOSE (POC DEVICE) (CANCELED) Routine, 4 TIMES DAILY BEFORE MEALS & AT BEDTIME, First occurrence on Mon02/01/21 at 0745
If any Blood Glucose (POC) is greater than 300mg/dl, then repeat Blood Glucose (POC) in 2 hours. If the initial blood glucose was greater than 300mg/dl and if second blood glucose is greater than 200md/dl, then notify Logistics Analyst. And BLOOD GLUCOSE (POC DEVICE) (CANCELED) Routine, DIRECTED, Starting on Mon02/01/21 at 0344, Until Specified
For all Blood Glucose LESS THAN 80 mg/dL, treat per Hypoglycemia in Non- Adults Clinical Practice Guideline (CPG) and recheck glucose 15 min after treatment. Repeat per CPG until glucose GREATER THAN 80 mg/dL. Once glucose IS GREATER THAN 80 mg/dL, recheck Blood Glucose every 1 hour x2, then resume as previously ordered. For Blood Glucose LESS THAN 80 mg/dL on admission OR LESS than 45 mg/dL at any time, obtain POC Blood Glucose every 4 hours for 6 occurrences AFTER treating per CPG. Obtain blood glucose for symptoms of hypoglycemia: sweating, shaking, fatigue, rapid pulse, slow thinking & dizziness. Notify physician w/results. Obtain blood glucose for symptoms of hyperglycemia: excessive thirst, blurred vision, excessive urination & tiredness. Notify physician w/results. If patient NPO, obtain POC Blood Glucose prior to administration of any insulin products. And COMMUNICATION ORDER FOR NURSING CARE: For Blood Glucose LESS THAN 80 mg/dl (CANCELED) Routine, CONTINUOUS, Starting on Mon02/01/21 at 0345, Until Specified
For Blood Glucose LESS THAN 80 mg/dl follow Hypoglycemia in Non- Adults Clinical Practice Guideline (CPG) And dextrose 50% injection 7.5-25 gJump to med 7.5-25 g, Intravenous, ADMINISTER DIRECTED, Starting on Mon02/01/21 at 0344, Until Mon02/02/21 at 1405, Blood glucose <80 mg/dL
For patients who are not alert, are NPO, or are on IV insulin infusion administer as directed per Hypoglycemia in Non- Adults Clinical Practice Guideline. For Blood Glucose: 60-79 mg/dL administer 7.5 gm (15ml); 45-59 mg/dL administer 12.5 gm (25ml); less than 45mg/dL administer 25gm (50ml). Extravasation Risk
And glucose (GLUTOSE) 40 % oral gel 1-2 TubeJump to med 1-2 Tube, Oral, ADMINISTER DIRECTED, Starting on Mon02/01/21 at 0344, Until Mon02/02/21 at 1405, Blood glucose <80 mg/dL
For patients who are alert, able to tolerate PO intake and with intact cognitive status administer as directed per Hypoglycemia in Non- Adults Clinical Practice Guideline. For Blood Glucose: 60-79 mg/dL administer 1 tube; 45-59 mg/dl administer 1.5 tubes; less than 45 mg/dL administer 2 tubes. Each tube of 37.5g delivers 15g of carbohydrate.
And NOTIFY PHYSICIAN, Blood Glucose LESS THAN 80 mg/dl (CANCELED) Routine, CONTINUOUS, Starting on Mon02/01/21 at 0345, Until Specified
Who to Notify: Logistics Analyst
For all Blood Glucose LESS THAN 80 mg/dl, notify Logistics Analyst after treatment per Hypoglycemia in Non- Adults Clinical Practice Guideline And Carbohydrate counts with meals (CANCELED) Routine, CONTINUOUS, Starting on Mon02/01/21 at 0345, Until Specified
Carbohydrate counts are to be done after each patient meal and with snack. Care Teams (unrecognized sec tion and content) Honey Liquefier Relationship Specialty Start Date End Date Sariah Sánchez DO [address] [facility] [address] [place] [id number] PCP - General Family Medicine 01/31/21 Candis Perez MD [address] [place] [address] PCP - Referring 1 Internal Medicine 02/01/21 Dana Pbaon, BROADCAST MAINTENANCE ENGINEER [address] [place] [address] PCP - Referring 2 Neurological Surgery 02/01/21 Honey Liquefier Relationship Specialty Start Date End Date Sariah Sánchez DO [address] [place], [place] [id number] PCP - General Family Practice 04/29/21 No, Referral Referring 07/11/18 Candis Perez MD Primary Staff Physician Cardiology 09/25/18 Honey Liquefier Relationship Specialty Start Date End Date Sariah Sánchez DO [address] [place], [place] [address] PCP - General Family Practice 04/29/21 No, Referral Referring 07/11/18 Candis Perez MD Primary Staff Physician Cardiology 09/25/18 Honey Liquefier Relationship Specialty Start Date End Date Sariah Sánchez DO [address] [place] [address] PCP - General Family Practice 04/29/21 No, Referral Referring 07/11/18 Candis Perez MD Primary Staff Physician Cardiology 09/25/18 Honey Liquefier Relationship Specialty Start Date End Date Sariah Sánchez DO [address] [place] [address] PCP - General Family Practice 04/29/21 No, Referral Referring 07/11/18 Candis Perez MD Primary Staff Physician Cardiology 09/25/18 Honey Liquefier Relationship Specialty Start Date End Date Sariah Sánchez DO [address] [facility] [address] [place] [address] PCP - General Family Practice 04/29/21 No, Referral Referring 07/11/18 Candis Perez MD Primary Staff Physician Cardiology 09/25/18 Honey Liquefier Relationship Specialty Start Date End Date Sariah Sánchez DO [address] [facility] [address] [place] [address] PCP - General Family Practice 04/29/21 No, Referral Referring 07/11/18 Candis Perez MD Primary Staff Physician Cardiology 09/25/18 Honey Liquefier Relationship Specialty Start Date End Date Sariah Sánchez DO [address] [facility] [address] [place] [address] PCP - General Family Practice 04/29/21 No, Referral Referring 07/11/18 Candis Perez MD Primary Staff Physician Cardiology 09/25/18 Honey Liquefier Relationship Specialty Start Date End Date Sariah Sánchez DO PCP - General Family Practice 04/29/21 No, Referral Referring 07/11/18 Candis Perez MD Primary Staff Physician Cardiology 09/25/18 Honey Liquefier Relationship Specialty Start Date End Date Sariah Sánchez DO PCP - General Family Practice 04/29/21 No, Referral Referring 07/11/18 Candis Perez MD Primary Staff Physician Cardiology 09/25/18 Honey Liquefier Relationship Specialty Start Date End Date Sariah Sánchez DO PCP - General Family Practice 04/29/21 No, Referral Referring 07/11/18 Candis Perez MD Primary Staff Physician Cardiology 09/25/18 Honey Liquefier Relationship Specialty Start Date End Date Sariah Sánchez DO PCP - General Family Practice 04/29/21 No, Referral Referring 07/11/18 Candis Perez MD Primary Staff Physician Cardiology 09/25/18 Honey Liquefier Relationship Specialty Start Date End Date Sariah Sánchez DO PCP - General Family Practice 04/29/21 No, Referral Referring 07/11/18 Candis Perez MD Primary Staff Physician Cardiology 09/25/18 Honey Liquefier Relationship Specialty Start Date End Date Sariah Sánchez DO PCP - General Family Practice 04/29/21 No, Referral Referring 07/11/18 Candis Perez MD Primary Staff Physician Cardiology 09/25/18 Honey Liquefier Relationship Specialty Start Date End Date Sariah Sánchez DO PCP - General Family Practice 04/29/21 No, Referral Referring 07/11/18 Candis Perez MD Primary Staff Physician Cardiology 09/25/18 Honey Liquefier Relationship Specialty Start Date End Date Sariah Sánchez DO PCP - General Family Practice 04/29/21 No, Referral Referring 07/11/18 Candis Perez MD Primary Staff Physician Cardiology 09/25/18 Honey Liquefier Relationship Specialty Start Date End Date Sariah Sánchez DO PCP - General Family Practice 04/29/21 No, Referral Referring 07/11/18 Candis Perez MD Primary Staff Physician Cardiology 09/25/18 Honey Liquefier Relationship Specialty Start Date End Date Sariah Sánchez DO PCP - General Family Practice 04/29/21 No, Referral Referring 07/11/18 Candis Perez MD Primary Staff Physician Cardiology 09/25/18 Honey Liquefier Relationship Specialty Start Date End Date Sariah Sánchez DO PCP - General Family Medicine 04/29/21 No, Referral Referring 07/11/18 Candis Perez MD Primary Staff Physician Cardiology 09/25/18 Honey Liquefier Relationship Specialty Start Date End Date Sariah Sánchez DO PCP - General Family Medicine 04/29/21 No, Referral Referring 07/11/18 Candis Perez MD Primary Staff Physician Cardiology 09/25/18 Honey Liquefier Relationship Specialty Start Date End Date Raymond [place] [place] [address] PCP - General Family Medicine 02/09/23 No, Referral Referring 07/11/18 Candis Perez MD Primary Staff Physician Cardiology 09/25/18 Honey Liquefier Relationship Specialty Start Date End Date Raymond Ndiaye DO [address] [place], [place] [id number] PCP - General Family Medicine 02/09/23 No, Referral Referring 07/11/18 Candis Perez MD Primary Staff Physician Cardiology 09/25/18 Honey Liquefier Relationship Specialty Start Date End Date Raymond Ndiaye DO [address] [place], [place] [address] PCP - General Family Medicine 02/09/23 No, Referral Referring 07/11/18 Candis Perez MD Primary Staff Physician Cardiology 09/25/18 Honey Liquefier Relationship Specialty Start Date End Date Raymond Ndiaye DO [address] [place] [address] PCP - General Family Medicine 02/09/23 No, Referral Referring 07/11/18 Candis Perez MD Primary Staff Physician Cardiology 09/25/18 Honey Liquefier Relationship Specialty Start Date End Date Raymond Ndiaye DO [address] [place], [place] [id number] PCP - General Family Medicine 02/09/23 No, Referral Referring 07/11/18 Candis Perez MD Primary Staff Physician Cardiology 09/25/18 Honey Liquefier Relationship Specialty Start Date End Date Raymond Ndiaye DO [address] [employer] [facility] [address] [place], [place] [address] PCP - General Family Medicine 02/09/23 No, Referral Referring 07/11/18 Candis Perez MD Primary Staff Physician Cardiology 09/25/18 Honey Liquefier Relationship Specialty Start Date End Date Raymond Ndiaye DO [address] [employer] [facility] [address] [place], [place] [address] PCP - General Family Medicine 02/09/23 No, Referral Referring 07/11/18 Candis Perez MD Primary Staff Physician Cardiology 09/25/18 Honey Liquefier Relationship Specialty Start Date End Date Raymond Ndiaye DO [address] [employer] [facility] [address] [place], [place] [address] PCP - General Family Medicine 02/09/23 No, Referral Referring 07/11/18 Candis Perez MD Primary Staff Physician Cardiology 09/25/18 Honey Liquefier Relationship Specialty Start Date End Date Raymond Ndiaye DO [address] [facility] [address] [place], [place] [id number] PCP - General Family Medicine 02/09/23 No, Referral Referring 07/11/18 Candis Perez MD Primary Staff Physician Cardiology 09/25/18 Honey Liquefier Relationship Specialty Start Date End Date Raymond Ndiaye DO [address] [address] PCP - General Family Medicine 02/09/23 No, Referral Referring 07/11/18 Candis Peerz MD Primary Staff Physician Cardiology 09/25/18 Honey Liquefier Relationship Specialty Start Date End Date Raymond Ndiaye DO [address] [address] PCP - General Family Medicine 02/09/23 No, Referral Referring 07/11/18 Candis Perez MD Primary Staff Physician Cardiology 09/25/18 FOR RECORDS PERTAINING TO PATIENTS WHO ARE OR HAVE BEEN ENROLLED IN A CHEMICAL DEPENDENCY/SUBSTANCEABUSE PROGRAM, SOME INFORMATION MAY BE OMITTED. This clinical summary was aggregated from multiple sources. Caution should be exercised in using it in the provision of clinical care. This summary normalizes information from multiple sources, and as a consequence, information in this document may materially change the coding, format and clinical context of patient data. In addition, data may be omitted in some cases. CLINICAL DECISIONS SHOULD BE BASED ON THE PRIMARY CLINICAL RECORDS. [facility]. provides no warranty or guarantee of the accuracy or completeness of information in this document.
[2023-09-14 10:54] LABS: ALB/GLOB Ratio 1.2 RATIO (0.9-2.4); AST(SGOT) 39 U/L (15-37); Alanine Aminotransfer ALT/SGPT 66 U/L (16-61); Albumin, Serum 3.8 g/dL (3.2-5.0); Alkaline Phosphatase 95 U/L (45-117); Anion Gap 7 (5-15); BUN 16 mg/dL (7-18); BUN/Creat Ratio 14.7 RATIO (10-20); Calcium,Total 9.3 mg/dL (8.5-10.1); Chloride 108 mmol/L (98-107); Cholesterol 98 mg/dL (200); Creatinine, Serum 1.09 mg/dL (0.70-1.30); EST Glomerular Filtration Rate 72 mL/min (>60); Est Glom Filt Rate - Afr Amer 87 mL/min (>60); Globulin 3.2 g/dL (2.2-4.2); Glucose 114 mg/dL (74-106); High Density Lipoprotein 34 mg/dL; Potassium 3.7 mmol/L (3.5-5.1); Sodium Level 143 mmol/L (136-145); Triglycerides 119 mg/dL; Very Low Density Lipoprotein 24 mg/dL (5-40)
[2023-09-14 12:05] LABS: Hemoglobin A1c 6.3 % (3.8-5.6)
== END | disposition home or self-care (01) ==
LOC: MTLAB 08:12
PROVIDERS: PCP Family Medicine; Referring Provider Internal Medicine Endocrinology, Diabetes & Metabolism; Visit Provider Internal Medicine Endocrinology, Diabetes & Metabolism
DX: E11.65 Type 2 diabetes mellitus with hyperglycemia (principal); E78.2 Mixed hyperlipidemia
CPT/HCPCS: 36415; 80053; 80061; 83036

== ENCOUNTER → 2023-12-01 | Outpatient (CLI) | payer OTHER, MEDICARE, SELFPAY ==
--- NOTE | 2023-12-01 10:57 | CT_ITS ---
EXAM: CT HEAD WITHOUT INTRAVENOUS CONTRAST CLINICAL INDICATION: new onset headaches TECHNIQUE: Multiple axial images were obtained of the head without intravenous contrast. This CT exam was performed using one or more of the following dose reduction techniques: automated exposure control, adjustment of the mA and/or kV according to patient size, and/or use of iterative reconstruction technique. COMPARISON: CT Head dated 09/15/2016 FINDINGS: BRAIN AND EXTRA-AXIAL SPACES: Focal area of encephalomalacia within the right occipital lobe consistent with an old cortical infarct. Remainder of the brain attenuation is normal. No hemorrhage or mass effect. Posterior fossa is normal. Ventricular size within the range of normal for the patient''s age. BONES/JOINTS: Normal calvarium. SINUSES: Mild mucosal thickening within the paranasal sinuses. MASTOID AIR CELLS: Normal. Clear. CT/Brain/Head without Contrast IMPRESSION: 1. No acute intracranial abnormality. 2. 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 Electronically Signed: Alejandro Holloway MD at 12:32 EDT ,
[2023-12-01 11:00] LABS: Absolute Lymphocyte Count 1.22 X10^3/uL (0.83-4.51); Absolute Neutrophil Count 3.5 X10^3/uL (2.0-7.7); Basophil# 0.03 X10^3/uL; Basophil% 0.5 % (0-1); Eosinophil# 0.28 X10^3/uL; Eosinophils% 5.1 % (0-5); Hematocrit 51.9 % (40-54); Hemoglobin 17.1 g/dL (13.0-16.5); Lymphocyte # 1.22 X10^3/ul (0.83-4.51); Lymphocyte % 22.2 % (19-41); Mean Corp Hgb Conc 32.9 g/dL (32-36); Mean Corpuscular Hgb 30.9 pg (27.0-32.0); Mean Corpuscular Volume 93.9 fL (80-94); Mean Platelet Vol. 11.1 fl (6.2-12.0); Monocyte% 9.1 % (0-10); NRBC Flagged by Analyzer 0 % (0-5); Neutrophil # 3.46 X10^3/uL (2.7-7.7); Neutrophil % 62.9 % (47-70); Platelet Count 120 K/mm3 (150-450); RBC Distribution Width CV 13.4 % (11.6-14.6); RBC Distribution Width SD 46.2 fl (35.1-43.9); Red Blood Count 5.53 M/mm3 (4.6-6.2); White Blood Count 5.5 K/mm3 (4.4-11.0)
--- NOTE | 2023-12-01 11:00 | RAD_ITS ---
STUDY: X-RAY CHEST REASON FOR EXAM: Male, 68 years old. Shortness of breath. TECHNIQUE: Frontal and lateral views of the chest on 3 images. COMPARISON: None. FINDINGS: Hyperinflation. There is no demonstrated pleural abnormality. Cardiomegaly with sternotomy wires, changes of coronary artery bypass grafting and coronary artery calcification. Normal mediastinum and zeferino. Normal visualized pulmonary arteries. Normal visualized aortic arch and descending thoracic aorta. Diffuse moderate thoracic spondylosis. Normal visualized ribs, clavicles, and shoulders. No abnormality of the visualized soft tissue structures of the upper abdomen. RAD/Chest PA and Lateral IMPRESSION: Cardiomegaly with hyperinflation and no acute or active cardiopulmonary disease. Incidentally noted is coronary artery calcification. Electronically Signed: Gallito Ambrocio MD at 13:12 EDT ,
[2023-12-01 11:32] LABS: ALB/GLOB Ratio 1.2 RATIO (0.9-2.4); AST(SGOT) 45 U/L (15-37); Alanine Aminotransfer ALT/SGPT 66 U/L (16-61); Albumin, Serum 3.8 g/dL (3.2-5.0); Alkaline Phosphatase 75 U/L (45-117); Anion Gap 5 (5-15); BUN 17 mg/dL (7-18); BUN/Creat Ratio 16.2 RATIO (10-20); Calcium,Total 9.3 mg/dL (8.5-10.1); Chloride 105 mmol/L (98-107); Creatinine, Serum 1.05 mg/dL (0.70-1.30); EST Glomerular Filtration Rate 75 mL/min (>60); Est Glom Filt Rate - Afr Amer 90 mL/min (>60); Globulin 3.1 g/dL (2.2-4.2); Glucose 118 mg/dL (74-106); Potassium 4.2 mmol/L (3.5-5.1); Protein, Total 6.9 g/dL (6.4-8.2); Sodium Level 139 mmol/L (136-145); Thyroid Stim Hormone (TSH) 1.17 uIU/mL (0.358-3.74)
[2023-12-01 13:10] LABS: Vitamin D,25 Hydroxy 25.8 ng/mL
== END | disposition home or self-care (01) ==
PROVIDERS: PCP Family Medicine; Referring Provider Family Medicine; Visit Provider Family Medicine
DX: R51.9 Headache, unspecified (principal); R06.02 Shortness of breath
CPT/HCPCS: 36415; 70450; 71046; 80053; 82306; 84443; 85025

== ENCOUNTER → 2024-01-16 | Outpatient (CLI) | payer OTHER, MEDICARE, SELFPAY ==
[2024-01-16 10:46] LABS: AST(SGOT) 36 U/L (15-37); Alanine Aminotransfer ALT/SGPT 58 U/L (16-61); Anion Gap 7 (5-15); BUN 22 mg/dL (7-18); BUN/Creat Ratio 18.3 RATIO (10-20); Calcium,Total 9.5 mg/dL (8.5-10.1); Chloride 104 mmol/L (98-107); Cholesterol 126 mg/dL (200); EST Glomerular Filtration Rate 64 mL/min (>60); Est Glom Filt Rate - Afr Amer 78 mL/min (>60); Glucose 180 mg/dL (74-106); High Density Lipoprotein 34 mg/dL; Potassium 4.2 mmol/L (3.5-5.1); Sodium Level 137 mmol/L (136-145); Thyroid Stim Hormone (TSH) 1.68 uIU/mL (0.358-3.74); Triglycerides 222 mg/dL; Very Low Density Lipoprotein 44 mg/dL (5-40)
[2024-01-16 11:25] LABS: Hemoglobin A1c 6.9 % (3.8-5.6)
[2024-01-16 11:49] LABS: Microalbumin,Random Urine 5.6 mg/L (NO RANGE EST.); Microalbumin:Creatinine Ratio 5.9 mg/g CRE (<30 mg/g CRE)
== END | disposition home or self-care (01) ==
LOC: MTLAB 08:26
PROVIDERS: PCP Family Medicine; Referring Provider Internal Medicine Endocrinology, Diabetes & Metabolism; Visit Provider Internal Medicine Endocrinology, Diabetes & Metabolism
DX: E11.42 Type 2 diabetes mellitus with diabetic polyneuropathy (principal); E78.2 Mixed hyperlipidemia; E04.8 Other specified nontoxic goiter
CPT/HCPCS: 36415; 80048; 80061; 82043; 82570; 83036; 84443; 84450; 84460

== ENCOUNTER 2024-08-14 09:38 | Emergency (ER) | payer OTHER, MEDICARE, SELFPAY ==
[2024-08-14 09:39] VITALS: BP 115/64; PULSE 86; RESP 16; TEMP 37; O2SAT 98; BMI 29.5
--- NOTE | 2024-08-14 10:04 | EKG12_ITS ---
Test Reason : Blood Pressure : */* mmHG Vent. Rate : 79 BPM Atrial Rate : 79 BPM P-R Int : 208 ms QRS Dur : 132 ms QT Int : 410 ms P-R-T Axes : 50 -61 101 degrees QTcB Int : 470 ms Normal sinus rhythm Left axis deviation Right bundle branch block Left ventricular hypertrophy with repolarization abnormality ( R in aVL ) Abnormal ECG Confirmed by JEREMY LECHUGA, MARCIAL ([id number]), manuscript editor AISHA ROSS ([id number]) on 08/15/2024 6:55:48 AM Referred By: Confirmed By: MARCIAL LUNA MD
--- NOTE | 2024-08-14 10:20 | RAD_ITS ---
EXAM: XR Chest, 2 Views CLINICAL INDICATION: TECHNIQUE: Frontal and lateral views of the chest. COMPARISON: No relevant prior studies available. FINDINGS: LUNGS AND PLEURAL SPACES: Unremarkable. No consolidation. No pneumothorax. HEART: Unremarkable. No cardiomegaly. MEDIASTINUM: Unremarkable. Normal mediastinal contour. BONES/JOINTS: Unremarkable. No acute fracture. RAD/Chest PA and Lateral IMPRESSION: No acute cardiopulmonary process. Reading Location: [facility]
[2024-08-14 10:26] LABS: Absolute Neutrophil Count 2.9 X10^3/uL (2.0-7.7); Basophil# 0.02 X10^3/uL; Basophil% 0.4 % (0-1); Eosinophil# 0.27 X10^3/uL; Eosinophils% 5.2 % (0-5); Hematocrit 53.1 % (40-54); Hemoglobin 17.7 g/dL (13.0-16.5); Mean Corp Hgb Conc 33.3 g/dL (32-36); Mean Platelet Vol. 11.2 fl (6.2-12.0); Monocyte# 0.69 X10^3/uL; Monocyte% 13.2 % (0-10); NRBC Flagged by Analyzer 0 % (0-5); Neutrophil # 2.91 X10^3/uL (2.7-7.7); Neutrophil % 55.8 % (47-70); Platelet Count 149 K/mm3 (150-450); RBC Distribution Width CV 13.2 % (11.6-14.6); RBC Distribution Width SD 45.1 fl (35.1-43.9); Red Blood Count 5.71 M/mm3 (4.6-6.2); White Blood Count 5.2 K/mm3 (4.4-11.0)
[2024-08-14 10:34] LABS: Anion Gap 7 (5-15); BUN 22 mg/dL (7-18); BUN/Creat Ratio 19.1 RATIO (10-20); Calcium,Total 9.6 mg/dL (8.5-10.1); Chloride 104 mmol/L (98-107); Creatinine, Serum 1.15 mg/dL (0.70-1.30); EST Glomerular Filtration Rate 67 mL/min (>60); Est Glom Filt Rate - Afr Amer 81 mL/min (>60); Estimated Creatinine Clearance 81.38 ml/min; Glucose 124 mg/dL (74-106); Sodium Level 137 mmol/L (136-145)
--- NOTE | 2024-08-14 10:38 | EDS_ITS ---
HPI History of Present Illness Chief Complaint: Shortness of Breath Informant: patient and spouse/S.O. Narrative Narrative: Presents worsening dyspnea overnight. Diagnosed with influenza 2 days ago by his PCP. Started having symptoms on Monday. Prior to that on and off illnesses for the last 3 weeks. Was treated for sinus infection with antibiotics recently along with steroids. Denies asthma or COPD. He states he would fall asleep due to breathing would wake up short of breath. He is feeling fatigued. Coronary disease history of bypass. Diabetes history well-controlled sugars. Undiagnosed sleep apnea. Spouse reports snores at night. He has had previous tonsillectomy with uvulectomy 20 years ago. Denies any chest pains. Denies vomiting or diarrhea. Denies any urinary symptoms. 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 Gastric reflux Restless legs Non-smoker History of echocardiogram Cardiology follow-up encounter History of heart attack Atherosclerosis of coronary artery of [place] heart without angina pectoris Biliary stricture Mirizzi's syndrome Current use of insulin Rheumatoid arthritis History of stress test Bile duct obstruction Abdominal aneurysm Fibromyalgia Vascular disease GERD (gastroesophageal reflux disease) Neuropathy Kidney stones Gastric paresis Irritable bowel disease H/O emotional problems History of back problems Arthritis Allergies Difficulty balancing Stroke Diabetes Heart disease HTN (hypertension) Home Medications ?Medication ?Instructions ?Recorded ?Last Taken ?Type gabapentin 600 mg tablet 600 mg PO DAILY pain 4 02/25/17 History clopidogrel 75 mg tablet 75 mg PO DAILY blood thinner 02/25/17 09/10/22 History oxycodone-acetaminophen 5 mg-325 1 tab PO Q8H PRN PRN Pain 02/25/17 02/24/17 History mg tablet lidocaine 5 % topical patch 1 patch topical DAILY PRN Back Pain 10/28/21 Unknown History (Lidoderm) aspirin 81 mg tablet,delayed 81 mg PO DAILY@0800 #0 ta bs 01/27/22 09/10/22 Rx release fexofenadine 180 mg tablet 180 mg PO DAILY PRN allergi es 03/04/22 Unknown History insulin aspart U-100 100 unit/mL 15 unit subcut TIDCM DM 03/04/22 Unknown His tory (3 mL) subcutaneous pen (Novolog FlexPen U-100 Insulin aspart) insulin glargine 100 unit/mL (3 50 unit subcut BID DM 03/04/22 09/13/22 09:00 History mL) subcutaneous pen rosuvastatin 40 mg tablet 40 mg PO DAILY 03/04/22 Unkn own History pantoprazole 40 mg tablet,delayed 40 mg PO DAILY PRN G ERD #90 tabs 09/07/22 Unknown Rx release (Protonix) carvedilol 6.25 mg tablet 6.25 mg PO BID #180 tabs Unknown Rx plecanatide 3 mg tablet (Trulance) 3 mg PO DAILY PRN c onstipation #30 03/16/23 Unknown Rx tabs cefdinir 300 mg capsule 300 mg PO BID 08/14/24 Unkno wn History codeine 10 mg-guaifenesin 100 mg/5 3 ml PO BID PRN 12/01 Unknown History mL oral liquid empagliflozin 10 mg tablet 10 mg PO DAILY 08/14/24 Unk nown History (Jardiance) metformin 500 mg tablet,extended 1,000 mg PO 08/14/24 Unknown History release 24 hr oseltamivir 75 mg capsule 75 mg PO BID 08/14/24 Unknow n History prednisone 20 mg tablet 20 mg PO DAILY 08/14/24 Unkn own History prednisone 20 mg tablet 40 mg (2 x 20 mg) PO DAILY # 8 tabs 08/14/24 Unknown Rx Allergy/AdvReac Type Severity Reaction Status Date / Time aripiprazole (From Abilify) Allergy Mild FELT POORLY Verified 08/14/24 09:39 atorvastatin (From Lipitor) Allergy muscle Verified 08/14/24 09:39 aches nabumetone (From Relafen) Allergy GI Verified 08/14/24 09:39 Family History Mother Heart disease Father Heart disease Surgical History History of cardiac catheterization History of coronary artery bypass graft x 3 Presence of internal carotid stent (~2018) History of laparoscopic cholecystectomy Vertebral artery stenosis Hx of tonsillectomy Stented coronary artery (01/26/22) H/O knee surgery Social History (Updated 08/14/24 @ 10:47 by Norma Faustina) household members: spouse Smoking Status: Never smoker alcohol intake: never substance use type: does not use ROS ROS ED Constitutional Constitutional ED: Reports other Details: Fatigue ; Denies chills, fever(s) or sweats ENT ENT ED: Denies sore throat Cardiovascular Cardiovascular: Denies chest pain, leg edema, palpitations or racing heartbeat Respiratory/Chest Respiratory/Chest: Reports cough and dyspnea; Denies dyspnea on exertion Gastrointestinal Gastrointestinal: Denies abdominal pain, diarrhea, nausea or vomiting Genitourinary Genitourinary ED: Denies dysuria, hematuria or urinary frequency Musculoskeletal Musculoskeletal: Denies back pain, extremity pain or neck pain Integumentary Denies rash or wounds Neurologic Neurologic: Denies headache(s), paresthesias or weakness EXAM Physical Exam Const Vital Signs: 08/14/24 09:39 08/14/24 10:48 Temperature 98.6 F Temperature Source Oral Pulse Rate 86 Respiratory Rate 16 Respiratory Effort Normal Respiratory Depth Normal Respiratory Pattern Normal Blood Pressure 115/64 Blood Pressure Mean 81 Pulse Ox 98 Oxygen Delivery Method Room Air Room Air Positive well nourished and well developed General Appearance ED: well developed and NAD HEENT Reports moist mucous membranes normocephalic and atraumatic Eyes General Eye ED: Yes normal appearance of both eyes Neck full ROM Chest Wall Chest Narrative: Midline chest scar Chest: Negative for tenderness Resp normal respiratory effort and normal air movement Effort and Inspection: symmetric chest movement; Negative for respiratory distress Cardio regular rate, regular rhythm and no murmurs Peripheral Pulses: pulses 2+ throughout GI normal to inspection, nondistended, normoactive bowel sounds and non-tender Palpation: Negative for guarding or rebound tenderness present Extremity normal to inspection General Extremety ED: Negative for edema or tenderness General Extremity: Negative for edema Neuro oriented x3 and no sensory deficits noted Sensorium / Orientation: awake and alert Skin no rashes or lesions noted and no wounds MDM MDM MDM Narrative Medical decision making narrative: Interventions / MDM: Differential diagnosis: Influenza, viral syndrome, sleep apnea Diagnosis considered but do not suspect: Pneumonia however x-ray negative. My EKG interpretation: Sinus rate of 79, no ST changes. T wave version anterior lateral leads. Right bundle branch block. T wave versions lateral knees noted September 2022 with a chronic right bundle branch block. Imaging independently reviewed and interpreted by myself: 2 view chest x-ray: No acute process. External documents reviewed: N/A Test considered but not ordered:N/A ED course: Vital stable the ED pulse ox 94-95% during evaluation. Recent viral illnesses, influenza diagnosed 2 days ago currently on Tamiflu. Likely undiagnosed sleep apnea. With cough fatigue, will check chest x-ray, labs. EKG with chronic right bundle branch block. 1125: Labs saw stable, glucose 124. Chest x-ray negative. Patient ambulated with a pulse ox maintained at 96%. His concern is swelling in his throat with his influenza. He was recently on steroids which helped his symptoms. Will give burst steroids for 5 days. Discussed likely sleep apnea worsening with his symptoms. He will need further testing for sleep apnea with his doctors. He will finish his Tamiflu. He will continue fluids for hydration. All questions were answered. Re-evaluation: stable Disposition discussed with patient/family/significant other: Patient significant other Case discussed with consulting clinician: N/A This note was generated with [employer] dictation software. It may contain incorrect words, spelling, and punctuation that were not noted in checking the note before signing. Lab Data Attestation: I reviewed the patient's lab results. Labs: Laboratory Results - last 24 hr 08/14/24 09:50 WBC 5.2 RBC 5.71 Hgb 17.7 H Hct 53.1 MCV 93.0 MCH 31.0 MCHC 33.3 RDW Std Deviation 45.1 H RDW Coeff of Destiny 13.2 Plt Count 149 L MPV 11.2 Immature Gran % (Auto) 0.400 Neut % (Auto) 55.8 Lymph % (Auto) 25.0 [place] % (Auto) 13.2 H Eos % (Auto) 5.2 H Baso % (Auto) 0.4 Absolute Neuts (auto) 2.9 Absolute Lymphs (auto) 1.30 Nucleated RBC % 0 Sodium 137 Potassium 4.0 Chloride 104 Carbon Dioxide 26.0 Anion Gap 7 BUN 22 H Creatinine 1.15 Estim Creat Clear Calc 81.38 Est GFR (MDRD) Af Amer 81 Est GFR (MDRD) Non-Af 67 BUN/Creatinine Ratio 19.1 Glucose 124 H Calcium 9.6 Radiography Diagnostic Testing: Clinical Impression(s) from Imaging Studies Chest X-Ray 08/14/24 10:20 IMPRESSION: No acute cardiopulmonary process. Reading Location: [facility] Discharge Plan Triage Chief Complaint: Shortness of Breath ED Provider: Noble Hicks Dx/Rx/DC Orders Clinical Impression: Influenza, Fatigue, Dyspnea, Sleep apnea Instructions: ED Influenza (Adult), ED Sleep Apnea, Obstructive Prescriptions: New prednisone 20 mg tablet 40 mg PO DAILY Qty: 8 0RF Rx Instructions: next dose 08/15/24 No Action insulin aspart U-100 [Novolog FlexPen U-100 Insulin] 100 unit/mL (3 mL) in sulin pen 15 unit SC TIDCM rosuvastatin 40 mg tablet 40 mg PO DAILY Patient Comments: TAKE 1 TABLET BY MOUTH ONCE DAILY carvedilol 6.25 mg tablet 6.25 mg PO BID Qty: 180 3RF gabapentin 600 MG tablet 600 mg PO DAILY Patient Comments: neuropathy clopidogrel 75 MG tablet 75 mg PO DAILY Rx Instructions: STOP PLAVIX 3 DAYS PRIOR TO SCOPE oxycodone-acetaminophen 1 TABLET tablet 1 tab PO Q8H PRN PRN (Reason: Pain) Patient Comments: Fibromyalgia insulin glargine 100 unit/mL (3 mL) insulin pen 50 unit subcut BID lidocaine [Lidoderm] 5 % Adhesive Patch,Medicated 1 patch TOPICAL DAILY PRN (Reason: Back Pain) fexofenadine 180 mg tablet 180 mg PO DAILY PRN (Reason: allergies) aspirin 81 mg Tablet,Delayed Release (Dr/Ec) 81 mg PO DAILY@0800 Qty: 0 0RF codeine-guaifenesin 10-100 mg/5 mL liquid 3 ml PO BID PRN cefdinir 300 mg capsule 300 mg PO BID prednisone 20 mg tablet 20 mg PO DAILY oseltamivir 75 mg capsule 75 mg PO BID metformin 500 mg tablet extended release 24 hr 1,000 mg PO Jardiance 10 mg tablet 10 mg PO DAILY pantoprazole [Protonix] 40 mg tablet,delayed release (DR/EC) 40 mg PO DAILY PRN (Reason: GERD) Qty: 90 2RF Trulance 3 mg tablet 3 mg PO DAILY PRN (Reason: constipation) Qty: 30 2RF Primary Care Provider: Korey Jacobs Referrals: Korey Jacobs MD [Primary Care Provider] - 1 Week Activity Restrictions/Additional Instructions: X-ray negative labs stable. Finish for Tamiflu. Take steroid as prescribed. Continue oral fluids for hydration. Glucose 128 in the lab. Follow-up your doctor for likely sleep test as an outpatient when you are better. Print Language: [place] Disposition Disposition: Home, Self Care
[2024-08-14 10:46] VITALS: O2SAT 96
[2024-08-14 10:48] VITALS: O2SAT 96
[2024-08-14 11:38] VITALS: BP 111/64; PULSE 70; RESP 22; TEMP 36.4; O2SAT 95
[2024-08-14] MEDS: predniSONE 20 MG Tablet 40 MG PO (11:43)
== END 2024-08-14 11:45 | disposition home or self-care (01) ==
PROVIDERS: Emergency Provider Emergency Medicine; PCP Family Medicine; Visit Provider Emergency Medicine
DX: J11.1 Influenza due to unidentified influenza virus with other respiratory manifestations (principal); E11.9 Type 2 diabetes mellitus without complications; I25.10 Atherosclerotic heart disease of native coronary artery without angina pectoris; G47.30 Sleep apnea, unspecified; I25.2 Old myocardial infarction; Z86.73 Personal history of transient ischemic attack (TIA), and cerebral infarction without residual deficits; Z95.1 Presence of aortocoronary bypass graft; Z95.5 Presence of coronary angioplasty implant and graft
CPT/HCPCS: 71046; 80048; 85025; 93005; 99284

== ENCOUNTER → 2024-09-17 | Outpatient (CLI) | payer OTHER, MEDICARE, SELFPAY ==
[2024-09-17 13:11] LABS: Cholesterol 111 mg/dL (<=200); High Density Lipoprotein 37 mg/dL; Low Density Lipoprotein Calc. 48 mg/dL; Triglycerides 131 mg/dL; Very Low Density Lipoprotein 26 mg/dL (5-40); cholesterol:hdl ratio screen 3.01
[2024-09-17 13:23] LABS: ALB/GLOB Ratio 1.7 RATIO (0.9-2.4); AST(SGOT) 23 U/L (<=37); Alanine Aminotransfer ALT/SGPT 29 U/L (<=46); Albumin, Serum 4.3 g/dL (3.4-4.8); Alkaline Phosphatase 80 U/L (40-129); Anion Gap 12 (5-15); BUN 14 mg/dL (4-19); Calcium,Total 9.6 mg/dL (7.6-11.0); Carbon Dioxide 24.7 mmol/L (21.0-32.0); Chloride 104 mmol/L (98-108); Creatinine, Serum 1.02 mg/dL (0.70-1.20); EST Glomerular Filtration Rate 80 (>60); Globulin 2.5 g/dL (2.2-4.2); Glucose 165 mg/dL (70-99); Hemoglobin A1c 7.5 % (<=5.6); Potassium 4.6 mmol/L (3.3-5.1); Protein, Total 6.7 g/dL (5.9-8.4); Sodium Level 140 mmol/L (133-145); Total Bilirubin 0.58 mg/dL (0.00-1.30)
== END | disposition home or self-care (01) ==
LOC: MTLAB 09:41
PROVIDERS: PCP Family Medicine; Referring Provider Internal Medicine Endocrinology, Diabetes & Metabolism; Visit Provider Internal Medicine Endocrinology, Diabetes & Metabolism
DX: E11.42 Type 2 diabetes mellitus with diabetic polyneuropathy (principal); E78.2 Mixed hyperlipidemia
CPT/HCPCS: 36415; 80053; 80061; 83036

== ENCOUNTER → 2025-01-06 | Outpatient (CLI) | payer OTHER, MEDICARE, SELFPAY ==
[2025-01-06 10:16] LABS: Microalbumin,Random Urine 16.2 mg/L (NO RANGE EST.); Microalbumin:Creatinine Ratio 22.6 mg/g CRE
[2025-01-06 11:32] LABS: ALB/GLOB Ratio 1.8 RATIO (0.9-2.4); AST(SGOT) 28 U/L (<=37); Alanine Aminotransfer ALT/SGPT 35 U/L (<=46); Albumin, Serum 4.2 g/dL (3.4-4.8); Alkaline Phosphatase 76 U/L (40-129); Anion Gap 10 (5-15); BUN 22 mg/dL (4-19); BUN/Creat Ratio 21.2 RATIO (10-20); Calcium,Total 9.5 mg/dL (7.6-11.0); Carbon Dioxide 24.7 mmol/L (21.0-32.0); Chloride 103 mmol/L (98-108); Cholesterol 108 mg/dL (<=200); Creatinine, Serum 1.04 mg/dL (0.70-1.20); EST Glomerular Filtration Rate 78 (>60); Globulin 2.4 g/dL (2.2-4.2); Glucose 174 mg/dL (70-99); High Density Lipoprotein 34 mg/dL; Low Density Lipoprotein Calc. 47 mg/dL; Potassium 4.8 mmol/L (3.3-5.1); Protein, Total 6.6 g/dL (5.9-8.4); Sodium Level 137 mmol/L (133-145); Total Bilirubin 0.55 mg/dL (0.00-1.30); Triglycerides 138 mg/dL; Very Low Density Lipoprotein 28 mg/dL (5-40); cholesterol:hdl ratio screen 3.19
[2025-01-06 12:00] LABS: Hemoglobin A1c 7.4 % (<=5.6)
== END | disposition home or self-care (01) ==
LOC: MTLAB 08:40
PROVIDERS: PCP Family Medicine; Referring Provider Internal Medicine Endocrinology, Diabetes & Metabolism; Visit Provider Internal Medicine Endocrinology, Diabetes & Metabolism
DX: E11.42 Type 2 diabetes mellitus with diabetic polyneuropathy (principal); E78.2 Mixed hyperlipidemia
CPT/HCPCS: 36415; 80053; 80061; 82043; 82570; 83036

== ENCOUNTER → 2025-01-13 | Outpatient (CLI) | payer OTHER, MEDICARE, SELFPAY | END | disposition home or self-care (01) | PROVIDERS: PCP Family Medicine; Referring Provider Podiatrist; Visit Provider Podiatrist | DX: L03.115 Cellulitis of right lower limb (principal) | CPT/HCPCS: 87070; 87075; 87077; 87186; 87205 ==

== ENCOUNTER → 2025-02-05 | Outpatient (CLI) | payer OTHER, MEDICARE, SELFPAY ==
--- NOTE | 2025-02-05 09:49 | ART_ITS ---
Reason For Study Reason For Study: PVD Procedure A bilateral lower extremity continuous wave Doppler with analog waveform analysis,segmental pressures,and ankle brachial indexes without exercise. Left Segmental Pressures Left brachial= 147mmHg. Left posterior tibial artery = 197mmHg. Left dorsalis pedis artery = 204mmHg. Left digit = 206 mmHg. The left posterior tibial artery waveforms are biphasic. The left dorsalis pedis waveforms are biphasic. Right Segmental Pressures Right brachial= 157mmHg. Right posterior tibial artery = 215mmHg. Right dorsalis pedis artery = 199mmHg. The right posterior tibial artery waveforms are biphasic. The right dorsalis pedis waveforms are biphasic. Right digit = NA mmHg. RT digit waveform obtained at base of RT great toe d/t bandages. Indices The right resting ankle brachial index is 1.37. The right ankle brachial index by the posterior tibial artery is 1.37. The right ankle brachial index by the dorsalis pedis is 1.27. The right digital- brachial index is NA.. Unable to obtain toe pressure d/t bandages. The left resting ankle brachial index is 1.30. The left ankle brachial index by the posterior tibial artery is 1.25. The left ankle brachial index by the dorsalis pedis is 1.30. The left digital-brachial index is 1.31. VL/Lower Ext Art Exam w/o Exercis Interpretation Summary Right JANE 1.37, normal. Doppler/PVR waveforms of the right leg mildly diminishe d at rest. Left JANE 1.3, normal. TBI and Doppler/PVR waveforms of the left leg normal at r est. Ordering Physician: Lupillo Alicea Referring Physician: Korey Jacobs Performed By: Tricia Cobb RVT, RDCS
== END | disposition home or self-care (01) ==
LOC: CVS 09:48
PROVIDERS: PCP Family Medicine; Referring Provider Podiatrist; Visit Provider Podiatrist
DX: I73.9 Peripheral vascular disease, unspecified (principal); M79.89 Other specified soft tissue disorders
CPT/HCPCS: 93923

== ENCOUNTER → 2025-02-28 | Outpatient (CLI) | payer OTHER, MEDICARE, SELFPAY ==
[2025-02-28 15:48] LABS: PSA,Total - Annual Screen 0.55 ng/mL (0.02-4.00)
== END | disposition home or self-care (01) ==
LOC: MTLAB 13:02
PROVIDERS: PCP Family Medicine; Referring Provider Family Medicine; Visit Provider Family Medicine
DX: E11.65 Type 2 diabetes mellitus with hyperglycemia (principal); Z12.5 Encounter for screening for malignant neoplasm of prostate
CPT/HCPCS: 36415; 83036; 84153; G0103

== ENCOUNTER → 2025-04-29 | Outpatient (CLI) | payer MEDICARE, SELFPAY ==
[2025-04-29 10:54] LABS: AST(SGOT) 27 U/L (<=37); Alanine Aminotransfer ALT/SGPT 25 U/L (<=46); Albumin, Serum 4.2 g/dL (3.4-4.8); Alkaline Phosphatase 101 U/L (40-129); Anion Gap 10 (5-15); BUN 21 mg/dL (4-19); BUN/Creat Ratio 22.5 RATIO (10-20); Calcium,Total 9.4 mg/dL (7.6-11.0); Carbon Dioxide 26.8 mmol/L (21.0-32.0); Chloride 105 mmol/L (98-108); Cholesterol 107 mg/dL (<=200); Globulin 2.5 g/dL (2.2-4.2); Glucose 109 mg/dL (70-99); Low Density Lipoprotein Calc. 51 mg/dL; Potassium 4.3 mmol/L (3.3-5.1); Triglycerides 99 mg/dL; Very Low Density Lipoprotein 20 mg/dL (5-40); cholesterol:hdl ratio screen 2.85
== END | disposition home or self-care (01) ==
PROVIDERS: PCP Family Medicine; Referring Provider Internal Medicine Endocrinology, Diabetes & Metabolism; Visit Provider Internal Medicine Endocrinology, Diabetes & Metabolism
DX: E11.42 Type 2 diabetes mellitus with diabetic polyneuropathy (principal); E78.2 Mixed hyperlipidemia
CPT/HCPCS: 36415; 80053; 80061; 83036

== ENCOUNTER → 2025-06-03 | Outpatient (CLI) | payer SELFPAY, MEDICARE ==
[2025-06-03 11:48] LABS: SERUM TEARS COLLECTION SPECIMEN PROCESSED
== END | disposition home or self-care (01) ==
PROVIDERS: PCP Family Medicine; Referring Provider Ophthalmology; Visit Provider Ophthalmology
DX: H16.143 Punctate keratitis, bilateral (principal)